=== PATIENT | female | born 1955 | race Caucasian/White ===

== ENCOUNTER 2023-12-27 12:56 | Outpatient (OUT) | payer MEDICARE, OTHER, SELFPAY ==
--- NOTE | 2023-12-27 13:04 | VEIN_ITS ---
Patient Name: JOSIAH ALONZO MR#: [id number] : 1955 Exam Date: 12/27/2023 Ordering Doctor: DR DIAZ NORRIS M.D. RADIOLOGY REPORT PROCEDURE: VC EXT VENOUS REFLUX VANDANA LMTD COMPARISON: None. INDICATIONS: Pain due to varicose veins of bilateral legs I83.813 TECHNIQUE: Duplex imaging of the lower extremity to assess the deep and superficial venous system for the presence of deep or superficial venous incompetence and to document the location and severity of disease. The study includes evaluation of the great saphenous vein (GSV), anterior accessory saphenous vein (AASV) and small saphenous vein (SSV). Patient scanned in reverse Trendelenburg and standing. FINDINGS: RIGHT LOWER EXTREMITY: Saphenofemoral Junction Reflux: Yes 8.5mm 2.6 sec GSV: Diam (mm) Reflux/ Time (sec) Proximal Thigh 8.4 Yes 3.7 Mid Thigh 6.0 Yes 3.9 Distal Thigh 8.1 Yes 3.7 Prox Calf 8.4 Ye s2.4 Mid Calf 4.4 Yes 1.8 Saphenopopliteal Junction Reflux: 6.6mm Yes 1.2 SSV: Proximal Calf 5.5 Yes 1.6 Mid Calf 5.6 Yes 4.8 AASV: Proximal Thigh 8.1 Yes 1.6 Mid Thigh 5.9 Yes 1.5 Distal Thigh Thrombi: No acute or chronic thrombus. Compressibility: Normal. Flow: Severe deep venous reflux in popliteal vein. Preforator:Prox posterior calf 6.8 mm with 2.2s reflux. Tech Note: PTVs not well visualized. Hypoechoic mass noted in proximal/medial right calf measures 2.8 x 2.3 x 2.2 cm. Incompetent varicose vein proximal medial lower leg measures 6.9 mm with 2.8s reflux. Varicose vein distal medial thigh measures 5.6 mm with 1.0s reflux. Varicose vein mid posterior calf off SSV measures 4.8 mm with 3.9s reflux. Varicose vein distal posterior calf measures 5.3 mm with 4.1s reflux. LEFT LOWER EXTREMITY: Saphenofemoral Junction Reflux: Yes 8.9 mm 3.7 sec GSV: Diam (mm) Reflux/Time (sec) Proximal Thigh 7.8 Yes 2.2 Mid Thigh 5.2 Yes 4.0 Distal Thigh 5.9 Yes 3.0 Prox Calf 5.0 Yes 4.8 Mid Calf 7.6 Yes 2.9 Saphenopopliteal Junction Relux: 3.6 mm No SSV: Proximal Calf 2.9 Yes 0.7 Mid Calf 2.9 Yes 0.3 AASV: Proximal Thigh 4.6 Yes 0.9 Mid Thigh 3.1 Yes 0.4 Distal Thigh Thrombi: No acute or chronic thrombus. Compressibility: Normal. Flow: Mild deep venous reflux. [employer]: Distal medial lower leg measures 5.0 mm with 4.7s reflux. Prox posterior/medial calf measures 3.0mm with 1.6s reflux. Tech Note: PTVs not well visualized. Incompetent varicose vein measures 4.7 mm with 1.1s reflux. Varicose vein medial knee measures 4.9 mm with 3.3s reflux. Varicose vein mid posterior calf off of SSV measures 4.0 mm with 1.1s reflux. CONCLUSION: 1. Abnormally dilated and incompetent right great saphenous, right small saphenous, and anterior accessory saphenous veins with numerous dilated and incompetent branch saphenous varicosities. 2. Abnormally dilated incompetent left great saphenous vein with multiple dilated and incompetent branch saphenous varicosities. 3. Nonspecific hypoechoic mass within proximal medial right calf 2.8 x 2.2 x 2.3 cm of uncertain etiology. No appreciable internal blood flow on color Doppler. MRI of the calf is recommended for further evaluation. Dictated by: Kwasi Ruiz M.D. on 12/27/2023 at 14:18 Approved by: Kwasi Ruiz M.D. on 12/27/2023 at 14:54
--- NOTE | 2023-12-27 13:04 | VEIN_ITS ---
Patient Name: JOSIAH ALONZO MR#: [id number] : 1955 Exam Date: 12/27/2023 Ordering Doctor: DR DIAZ NORRIS M.D. RADIOLOGY REPORT PROCEDURE: [facility] - OFFICE VISIT INITIAL COMPARISON: None. PROGRESS NOTES: [age] year old female who presents with a 20 year history of dilated bulging veins, discolored veins, leg pain, swelling, muscle cramping. The patient's right leg symptoms are worse than the left. There has been a progression of symptoms over time. This increases with prolonged leg dependency. The patient describes an improvement with rest, elevation, exercise, support stockings, and medication. The patient denies any signs and symptoms to suggest arterial ischemia. The patient describes a family history of varicose veins on maternal side. The patient has drinking and smoking history of occasional alcohol consumption; no tobacco use. Patient has a past medical history significant for obesity. The patient denies a history of deep venous thrombus or pulmonary embolus. See separate history and physical for medication list. No prior treatment for varicose or spider veins. Current use of compression stockings. After review of nurse notes, history and physical exam I discussed at length the pathophysiology of venous hypertension and possible treatments, therapies and strategies available. We discussed at length the importance of elevating the lower extremities above the level of the heart, increased physical activity and compression stocking use. Ultrasound venous reflux study performed today was discussed at length with the patient. The report demonstrates abnormally dilated and markedly incompetent right great saphenous vein, right small saphenous vein, right anterior accessory saphenous vein, left great saphenous vein. Numerous dilated incompetent branch saphenous varicosities.. PHYSICAL EXAM: The right leg demonstrates scattered superficial varicosities, scattered reticular and spider veins, no ulceration, mild-moderate edema, no skin discoloration. The left leg demonstrates scattered superficial varicosities, scattered reticular and spider veins, no ulceration, mild-moderate edema, no skin discoloration. Both thighs, legs and feet were symmetrically warm to the touch. Good posterior tibial and dorsalis pedis pulses were present bilaterally. VEIN/ Facility [facility] Comprehensive IMPRESSION: 1. Bilateral lower extremity venous insufficiency 2. Bilateral lower extremity varicose veins 3. Mild-moderate bilateral lower extremity subcutaneous edema 4. No flow significant arterial disease 5. CEAP: C3, EC, , [place] PLAN: 1. Continued use of compression stockings 2. Elevated legs and increased physical activity symptomatic relief 3. Endovenous laser ablation of right great saphenous, left great saphenous, right small saphenous, right anterior accessory saphenous veins. 4. Microfoam chemical ablation of numerous bilateral incompetent branch saphenous varicosities. 5. Sclerotherapy for reticular and spider veins. 6. MRI of right calf for evaluation of nonspecific 2.8 cm mass versus complex cyst versus old hematoma. Nurse notes, history and physical were reviewed and confirmed, see attached forms. The nurse was present throughout the physical exam and consultation Dictated by: Kwasi Ruiz M.D. on 12/27/2023 at 14:54 Approved by: Kwasi Ruiz M.D. on 12/27/2023 at 14:59
== END 2023-12-27 12:57 | disposition home or self-care (01) ==
LOC: VC 12:58
PROVIDERS: PCP Podiatrist Foot & Ankle Surgery; Visit Provider Radiology Diagnostic Radiology
DX: I83.813 Varicose veins of bilateral lower extremities with pain (principal); I87.2 Venous insufficiency (chronic) (peripheral)
CPT/HCPCS: 93970; G0463

== ENCOUNTER 2024-01-05 06:34 | Outpatient (OUT) | payer MEDICARE, OTHER, SELFPAY ==
--- NOTE | 2024-01-05 06:38 | MR_ITS ---
The [address] [address] Patient Name: JOSIAH ALONZO MRN: [id number] date: 1955 Sex: F Assigned Patient Location: MRI Current Patient Location: Accession/Order Number: [id number] Exam Date: 01/05/2024 06:45 Report Date: 01/08/2024 11:21 At the request of: ABBY RODRIGUEZ Procedure: MR lower leg RT wo con EXAM: MR lower leg RT wo con HISTORY: right lower leg mass COMPARISON: None. TECHNIQUE: MRI images obtained with multiple sequences. MRI of the right lower extremity without contrast. Sequences obtained by standard department protocol. FINDINGS: There is a mass of the lower extremity associated with the neurovascular bundle anterior to the soleus muscle belly, the mass measures approximately 2.2 x 2.2 x 2.6 cm. The mass is in the region of the tibial, Most consistent with nerve sheath tumor. There is a fusiform appearance of the mass inferiorly. There is a split fast line. Metallic susceptibility artifact about the knee joint. No acute edema of the musculature of the right lower extremity. No significant subcutaneous soft tissue edema. No acute bone marrow edema. No acute fracture. MR/MR lower leg RT wo con IMPRESSION: 1. Soft tissue mass in the region of the tibial nerve of the lower extremity measuring 2.2 x 2.2 x 2.6 cm with a fusiform appearance of the inferior aspect of the mass. 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 Electronically authenticated by: BIANCA RODRIGUEZ Date: 01/08/2024 11:21
--- OUTSIDE RECORDS SUMMARY | 2024-01-05 06:38 | XMS_ITS | CCD ---
Author Organization [facility] Care Team Providers Care Heel Lift Gouger Name Role Phone Esperanza Chaney Primary Care Provider RAMIRO OLSEN Attending Unavailab le BROWN, ESPERANZA Carmichael Primary Care Unavailable Esperanza CHANEY Primary Care Physician [phone] Kaitlin Andrea Unavailable Unavailable Ritu HALL, Esperanaz Carmichael Primary Care Provider JOAN WARNER Referring Unavailab le BROWN, ESPERANZA Carmichael Primary Care Unavailable JOAN WARNER Referring Unavailab le BROWN, ESPERANZA Carmichael Primary Care Unavailable WARNERJOAN Referring Unavailab le BROWN, ESPERANZA Carmichael Primary Care Unavailable WARNERJOAN Referring Unavailab le BROWN, ESPERANZA Carmichael Primary Care Unavailable WARNERJOAN Referring Unavailab le BROWN, ESPERANZA Carmichael Primary Care Unavailable WARNERJOAN Referring Unavailab le BROWN, ESPERANZA Carmichael Primary Care Unavailable WARNERJOAN Referring Unavailab le BROWN, ESPERANZA Carmichael Primary Care Unavailable WARNER, JOAN BAILEY Referring Unavailab le BROWN, ESPERANZA Carmichael Primary Care Unavailable WARNERJOAN Referring Unavailab le BROWN, ESPERANZA Carmichael Primary Care Unavailable WARNERJOAN Referring Unavailab le BROWN, ESPERANZA Carmichael Primary Care Unavailable WARNERJOAN Referring Unavailab le BROWN, ESPERANZA Carmichael Primary Care Unavailable WARNERJOAN Referring Unavailab le BROWN, ESPERANZA Carmichael Primary Care Unavailable WARNERJOAN Referring Unavailab le BROWN, ESPERANZA Carmichael Primary Care Unavailable JOAN WARNER Referring Unavailab le BROWN, ESPERANZA Carmichael Primary Care Unavailable WARNERJOAN Referring Unavailab le BROWN, ESPERANZA Carmichael Primary Care Unavailable Guerita Knapp Primary Care Physician Esperanza Chaney MD Primary Care Provider [phone] Guerita Knapp Primary Care Physician BRADY COLINDRES Attending Unavailable DOLCE, BRADY Sales Attending Unavailable DOLCE, BRADY Sales Attending Unavailable HILLS, REGGIE Sales Referring Unavailable HILLS, REGGIE Sales Attending Unavailable DOLCE, BRADY Sales Attending Unavailable DOLCE, BRADY Sales Referring Unavailable DOLCE, BRADY Sales Attending Unavailable DOLCE, BRADY Sales Attending Unavailable DOLCE, BRADY D Referring Unavailable DOLCE, BRADY D Attending Unavailable DOLCE, BRADY D Referring Unavailable DOLCE, BRADY D Attending Unavailable DOLCE, BRADY Sales Attending Unavailable DOLCE, BRADY D Attending Unavailable DOLCE, BRADY Sales Attending Unavailable DOLCE, BRADY Sales Attending Unavailable DOLCE, BRADY Sales Attending Unavailable DOLCE, BRADY D Referring Unavailable KnappGuerita lepe Attending Unavailable Dolce, Brady Sales Attending Unavailable Dolce, Brady Sales Referring Unavailable Dolce, Brady Sales Admitting Unavailable BROWNEsperanza Attending Unavailable KnappGuerita Attending Unavailable BROWNEsperanza Attending Unavailable KnappGuerita Attending Unavailable KnappGuerita Attending Unavailable KnappGuerita Attending Unavailable KnappGuerita Attending Unavailable KnappGuerita Attending Unavailable KnappGuerita Attending Unavailable BROWNEsperanza Attending Unavailable KnappGuerita Attending Unavailable KnappGuerita Attending Unavailable KnappGuerita Attending Unavailable KnappGuerita Attending Unavailable KnappGuerita Attending Unavailable KnappGuerita Attending Unavailable KnappGuerita Attending Unavailable BROWNVikram Attending Unavailable REFERRAL, SELF Referring Unavailable REFERRAL, SELF Attending Unavailable REFERRAL, SELF Admitting Unavailable BROWN, Christopher Consulting Unavailable MD RITU Christopher Consulting UnavailAngela Badillo Consulting Unavailable BROWN, Christopher Consulting Unavailable BROWN, Christopher Consulting Unavailable BROWN, Christopher Consulting Unavailable BROWN, Christopher Consulting Unavailable BROWN, Christopher Consulting Unavailable BROWN, Christopher Consulting Unavailable BROWN, Christopher Consulting Unavailable BROWN, Christopher Consulting Unavailable BROWN, Christopher Consulting Unavailable BROWN, Christopher Consulting Unavailable BROWN, Christopher Consulting Unavailable BROWN, Christopher Consulting Unavailable BROWN, Christopher Consulting Unavailable BROWN, Christopher Consulting Unavailable BROWN, Christopher Consulting Unavailable BROWN, Christopher Consulting Unavailable Guerita Knapp Attending Unavailable BROWNEsperanza Attending Unavailable BROWNEsperanza Attending Unavailable BROWN, Esperanza Carmichael Attending Unavailable Vikram CHANEY Attending Unavailable RITU, Esperanza Carmichael Attending Unavailable RITU, Esperanza Carmichael Attending Unavailable BROWN, Esperanza Carmichael Attending Unavailable BROWN, Esperanza Carmichael Attending Unavailable BROWN, Esperanza Carmichael Attending Unavailable Guerita Knapp Attending Unavailable RITU, Esperanza Carmichael Attending Unavailable Guerita Knapp Attending Unavailable RITU, Esperanza Carmichael Attending Unavailable RITU, Esperanza Carmichael Attending Unavailable RITU, Esperanza Carmichael Attending Unavailable BROWN, Esperanza Carmichael Attending Unavailable BROWN, Esperanza Carmichael Attending Unavailable BROWN, Esperanza Carmichael Attending Unavailable BROWN, Vikram Attending Unavailable Dolce, Brady D Admitting Unavailable Dolce, Brady D Attending Unavailable Dolce, Brady D Admitting Unavailable Dolce, Brady D Attending Unavailable RITU, Esperanza Carmichael Admitting Unavailable BROWN, Esperanza Carmichael Attending Unavailable Dolce, Brady D Attending Unavailable Dolce, Brady D Admitting Unavailable Dolce, Brady D Attending Unavailable Dolce, Brady D Admitting Unavailable Allergies Allergy Classification Reported Allergen(s) Allergy Type Date of Onset Reaction(s) Facility NSAIDs (2 sources) Naproxen; Translations: [naproxen] Drug Allergy Nausea (finding) [facility] Opioid Agonists (2 sources) Codeine; Translations: [codeine] Drug Allergy Lightheadedness (finding), Nausea and vomiting (disorder) [facility] Penicillins (antibiotic) (2 sources) Amoxicillin; Translations: [amoxicillin] Drug Allergy Cutaneous eruption (morphologic abnormality) [facility] (20 sources) Codeine; Translations: [Unknown] Drug Allergy 0 GI Intolerance, Lightheadedness (finding), Nausea and vomiting (disorder), Dizziness, Nausea And Vomiting, Unknown [facility] (20 sources) Amoxicillin; Translations: [amoxicillin] Drug Allergy 3 Cutaneous eruption (morphologic abnormality), Rash [facility] (20 sources) Naproxen; Translations: [naproxen] Drug Allergy 3 Nausea (finding), Nausea Only [facility] Medications Current Medications Medication Drug Class(es) Dates Sig (Normalized) Sig (Original) acetaminophen 325 mg / oxyCODONE hydrochloride 5 mg oral tablet (20 sources) Opioid Agonist Start: 08-23-2023 End: 08-28-2023 oxyCODONE-acetamin ophen (Percocet) 5-325 MG tablet Indications: Pain Take 1 tablet by mouth 4 (four) times a day as needed for severe pain for up to 5 days TAKE 1 PILL P.O. Q.4H P.R.N. PAIN 20 tablet 0 08/23/2023 08/28/2023 Active Start: 12-31-2021 Percocet 325 m g-5 mg Tab 1 tab(s), Oral, q4hr Pain 4-7, Refill(s) 0 Start Date: 12/31/21 Status: Ordered Start: 12-31-2021 Percocet 325 m g-5 mg Tab 2 tab(s), Oral, q4hr Pain 4-7, Refill(s) 0 Start Date: 12/31/21 Status: Ordered Start: 12-31-2021 Percocet 325 m g-5 mg Tab 1 tab(s), Oral, q4hr Pain 4-7, Refill(s) 0 Start Date: 12/31/21 Status: Ordered albuterol 0.83 mg/ml inhalation solution (20 sources) beta2-Adrenergic Agonist Start: 08-31-2022 albut mike (2.5 MG/3ML) 0.083% nebulizer solution 0.083% - 3mL dosing units, Inhalation, q6hr Wheezing, 100 EA, Refill(s) 2, [facility] [id number], 165, cm, 07/07/22 9:42:00 EST, Height/Length Dosing, 98, kg, 07/07/22 9:42:00 EST, Weight Dosing 0 08/31/2022 Active Start: 08-31-2022 albuterol 0.08 3% Inh Robyn 3 mL 0.083% - 3mL dosing units, Inhalation, q6hr Wheezing, 100 EA, Refill(s) 2, [facility] [id number], 165, cm, 07/07/22 9:42:00 EST, Height/Length Dosing, 98, kg, 07/07/22 9:42:00 EST, Weight Dosing Start Date: 08/31/22 Status: Ordered Start: 03-10-2021 take 2.5 mg by inhal ation every six hours as needed for wheezing albuterol 0.083% Inh Robyn 3 mL UD 2.5 mg = 3 mL, Inhalation, q6hr, PRN for wheezing, # 100 EA, Refills(s) 2, [facility], 154.1, cm, 05/08/20 8:25:00 EDT, Height/Length Dosing Start Date: 03/10/21 Status: Ordered Start: 03-10-2021 take 2 puff(s) by in halation four times daily for wheezing ProAir HFA 90 mcg/inh inhalation aerosol 2 puff(s), Inhalation, QID for wheezing, 1 EA, Refill(s) 2, [facility], 154.1, cm, 05/08/20 8:25:00 EDT, Height/Length Dosing Start Date: 03/10/21 Status: Ordered Start: 03-10-2021 take 2.5 mg by inhal ation every six hours as needed for wheezing albuterol 0.083% Inh Robyn 3 mL UD 2.5 mg = 3 mL, Inhalation, q6hr, PRN for wheezing, # 100 EA, Refills(s) 2, [facility], 154.1, cm, 05/08/20 8:25:00 EDT, Height/Length Dosing Start Date: 03/10/21 Status: Ordered Albuterol (Eqv-ProAir HFA) 90 mcg/inh inhalation aerosol (20 sources) Start: 07-05-2023 End: 06-29-2024 take 2 puff(s) by inhalation four times daily Albuterol (Eqv-ProAir HFA) 90 mcg/inh inhalation aerosol 2 puff(s), Inhalation, QID Wheezing for 90 day(s), 18 gm, Refill(s) 3, [facility] [id number], 170, cm, 07/05/23 12:11:00 EST, Height/Length Dosing, 98.6, kg, 07/05/23 12:11:00 EST, Weight Dosing Start Date: 07/05/23 Stop Date: 06/29/24 Status: Ordered Start: 09-20-2022 take 2 puff(s) by in halation four times daily Albuterol (Eqv-ProAir HFA) 90 mcg/inh inhalation aerosol 2 puff(s), Inhalation, QID Wheezing, 1 EA, Refill(s) 2, [facility] [id number], 165, cm, 09/20/22 10:56:00 EDT, Height/Length Dosing, 98, kg, 07/07/22 9:42:00 EST, Weight Dosing Start Date: 09/20/22 Status: Ordered ascorbic acid 500 mg chewable tablet (9 sources) Vitamin C Start: 11-12-2021 take 1 tablet by mouth once daily Vitamin C 500 mg oral tablet, chewable 500 mg = 1 tab(s), Chewed, Daily, Refills(s) 0, Prophylaxis Start Date: 11/12/21 Status: Ordered aspirin 325 mg oral tablet (20 sources) Platelet Aggregation Inhibitor, Nonsteroidal Anti-inflammatory Drug Start: 12-31-2021 End: 01-30-2022 take 1 tablet by mouth once daily aspirin 325 mg Tab 325 mg = 1 tab(s), Oral, Daily, X 30 day(s), # 30 tab(s), Refills(s) 0 Start Date: 12/31/21 Stop Date: 01/30/22 Status: Ordered Start: 12-17-2021 take 1 tablet by chacha th once daily aspirin 81 mg Chew Tab 81 mg = 1 tab(s), Oral, Daily, # 30 tab(s), Refills(s) 0, Prophylaxis Start Date: 12/17/21 Status: Ordered azithromycin 250 mg oral tablet (2 sources) Macrolide Antimicrobial Start: 07-05-2023 End: 07-10-2023 azithromycin 250 mg Tab = 1 packet(s), Oral, As Directed, as directed on package labeling, X 5 day(s), # 6 tab(s), Refills(s) 0, Pharmacy: [facility] [id number], 170, cm, 07/05/23 12:11:00 EST, Height/Length Dosing, 98.6, kg, 07/05/23 12:11:00 EST, Weight Dosing Start Date: 07/05/23 Stop Date: 07/10/23 Status: Ordered Start: 09-20-2022 End: 09-25-2022 azithromycin 250 mg Tab = 1 packet(s), Oral, As Directed, as directed on package labeling, X 5 day(s), # 6 tab(s), Refills(s) 0, Pharmacy: [facility] [id number], 165, cm, 09/20/22 10:56:00 EDT, Height/Length Dosing, 98, kg, 07/07/22 9:42:00 EST, Weight Dosing Start Date: 09/20/22 Stop Date: 09/25/22 Status: Ordered budesonide 0.25 mg/ml inhalation suspension (20 sources) Corticosteroid Start: 09-20-2022 take 0.5 mg by inhalation twice daily budesonide 0.5 mg/2 mL Inh Susp 0.5 mg = 2 mL, NEB, BID, # 90 EA, Refills(s) 1, Pharmacy: [facility] [id number], 165, cm, 09/20/22 10:56:00 EDT, Height/Length Dosing, 98, kg, 07/07/22 9:42:00 EST, Weight Dosing Start Date: 09/20/22 Status: Ordered Start: 03-10-2021 take 0.5 mg by inhal ation once daily budesonide 0.5 mg/2 mL Inh Susp 0.5 mg = 2 mL, NEB, Daily, # 90 EA, Refills(s) 1, Pharmacy: [facility] 518, 154.1, cm, 05/08/20 8:25:00 EDT, Height/Length Dosing Start Date: 03/10/21 Status: Ordered Start: 03-10-2021 take 0.5 mg by inhal ation once daily budesonide 0.5 mg/2 mL Inh Susp 0.5 mg = 2 mL, NEB, Daily, # 90 EA, Refills(s) 1, Pharmacy: [facility] 518, 154.1, cm, 05/08/20 8:25:00 EDT, Height/Length Dosing Start Date: 03/10/21 Status: Ordered calcium citrate 950 mg / cholecalciferol 250 unt oral tablet (20 sources) Vitamin D Start: 11-12-2021 take 1 tablet by mouth twice daily calcium-vitamin D 200 mg-250 intl units oral tablet 1 tab(s), Oral, BID, Prophylaxis Start Date: 11/12/21 Status: Ordered cephalexin 500 mg oral capsule (1 source) Cephalosporin Antibacterial Start: 12-31-2021 End: 01-05-2022 take 1 capsule by mouth four times daily Keflex 500 mg Cap 500 mg = 1 cap(s), Oral, QID, X 5 day(s), # 20 cap(s), Refills(s) 0 Start Date: 12/31/21 Stop Date: 01/05/22 Status: Ordered cetirizine hydrochloride 10 mg oral tablet (20 sources) Histamine-1 Receptor Antagonist Start: 04-13-2020 take 1 tablet by mouth once daily cetirizine 10 mg Tab 10 mg = 1 tab(s), Oral, Daily, # 90 tab(s), Refills(s) 3, Pharmacy: [facility] [id number], 170, cm, 01/02/24 10:45:00 EDT, Height/Length Dosing, 106, kg, 01/02/24 10:45:00 EDT, Weight Dosing Start Date: 01/02/24 Status: Ordered clindamycin 300 mg oral capsule (20 sources) Lincosamide Antibacterial Start: 07-14-2022 clindamycin 300 mg oral cap 2 cap, Oral, Once, take 1 hr prior to procedure, # 2 cap(s), Refills(s) 1, Pharmacy: [facility] [id number], 165, cm, 07/07/22 9:42:00 EST, Height/Length Dosing, 98, kg, 07/07/22 9:42:00 EST, Weight Dosing Start Date: 07/14/22 Status: Ordered Start: 07-14-2022 take [address] [facility] every six hours clindamycin 300 mg oral cap 300 mg = 1 cap(s), Oral, q6hr, 1 hour before procedure, # 2 cap(s), Refills(s) 1, Pharmacy: [facility] [id number], 170, cm, 07/05/23 12:11:00 EST, Height/Length Dosing, 98.6, kg, 07/05/23 12:11:00 EST, Weight Dosing Start Date: 08/09/23 Status: Ordered cyclobenzaprine hydrochloride 10 mg oral tablet (1 source) Muscle Relaxant Start: 12-28-2019 take 1 tablet by mouth twice daily as needed for pain cyclobenzaprine (FLEXERIL) 10 MG tablet Take 1 tablet p.o. twice daily as needed muscle spasm or pain. . 10 tablet 0 12/28/2019 Active docusate sodium 100 mg oral capsule (14 sources) Start: 12-31-2021 take 1 capsule by mouth twice daily Colace 100 mg Cap 100 mg = 1 cap(s), Oral, BID, Refills(s) 0, Constipation Start Date: 12/31/21 Status: Ordered escitalopram 20 mg oral tablet (20 sources) Serotonin Reuptake Inhibitor Start: 08-15-2022 take 1 tablet by mouth once daily escitalopram 20 mg Tab 20 mg = 1 tab(s), Oral, Daily, # 90 tab(s), Refills(s) 3, Pharmacy: [facility] [id number], 170, cm, 08/14/23 10:53:00 EST, Height/Length Dosing, 101.7, kg, 08/14/23 10:53:00 EST, Weight Dosing Start Date: 10/03/23 Status: Ordered Start: 03-28-2022 take 1 tablet by chacha once daily escitalopram 20 mg Tab 20 mg = 1 tab(s), Oral, Daily, # 90 tab(s), Refills(s) 1, Pharmacy: [facility] [id number], 162, cm, 01/18/22 11:03:00 EDT, Height/Length Dosing, 97, kg, 01/18/22 11:03:00 EDT, Weight Dosing Start Date: 03/28/22 Status: Ordered Start: 12-31-2021 take 1 tablet by chacha once daily escitalopram 20 mg Tab 20 mg = 1 tab(s), Oral, Daily, # 90 tab(s), Refills(s) 1, Pharmacy: [facility] 320, 162, cm, 12/17/21 9:05:00 EDT, Height/Length Dosing, 96, kg, 12/17/21 9:05:00 EDT, Weight Dosing Start Date: 12/31/21 Status: Ordered Start: 09-27-2021 take 1 tablet by chacha once daily escitalopram 20 mg Tab 20 mg = 1 tab(s), Oral, Daily, # 90 tab(s), Refills(s) 1, Pharmacy: [facility] 518, 154.1, cm, 07/30/21 14:24:00 EST, Height/Length Dosing, 90.5, kg, 07/30/21 14:24:00 EST, Weight Dosing Start Date: 09/27/21 Status: Ordered famotidine 40 mg oral tablet (2 sources) Histamine-2 Receptor Antagonist Start: 04-13-2020 take 1 tablet by mouth once daily at bedtime famotidine 40 mg Tab 40 mg = 1 tab(s), Oral, Once a day (at bedtime), # 30 tab(s), Refills(s) 0, Pharmacy: [facility] 320, 154.1, cm, 04/13/20 12:32:00 EDT, Height/Length Dosing Start Date: 04/13/20 Status: Ordered Fish Oils (20 sources) Start: 11-14-2018 take 2 capsules by mouth twice daily Fish Oil 500 mg oral capsule 1,000 mg = 2 cap(s), Oral, BID, Refills(s) 0, Prophylaxis Start Date: 11/14/18 Status: Ordered Start: 11-14-2018 take 2 capsules by m outh twice daily Fish Oil 500 mg oral capsule 1,000 mg = 2 cap(s), Oral, BID, # 130 cap(s), Refills(s) 0 Start Date: 11/14/18 Status: Ordered Flonase 0.05 mg/inh [place] (13 sources) Start: 11-21-2018 take 2 spray(s) nasal route once daily Flonase 0.05 mg/inh [place] 2 spray(s), Nasal, Daily, 16 gram, Refill(s) 0, each nostril, [facility] 320 Start Date: 11/21/18 Status: Ordered fluticasone propionate 0.05 mg/actuat metered dose nasal spray (20 sources) Corticosteroid Start: 11-21-2018 take 2 spray(s) nasal route once daily Flonase 0.05 mg/inh [place] 2 spray(s), Nasal, Daily, 16 gram, Refill(s) 0, each nostril, [facility] 320 Start Date: 11/21/18 Status: Ordered gabapentin 300 mg oral capsule (20 sources) Anti-epileptic Agent Start: 03-14-2023 take 1 capsule by mouth three times daily gabapentin 300 mg Cap 300 mg = 1 cap(s), Oral, TID, # 90 cap(s), Refills(s) 3, Pharmacy: [facility] [id number], 165, cm, 11/24/22 13:54:00 EDT, Height/Length Dosing, 97, kg, 11/24/22 13:54:00 EDT, Weight Dosing Start Date: 03/14/23 Status: Ordered Start: 02-10-2023 take [address] [facility] three times daily gabapentin 300 mg Cap 300 mg = 1 cap(s), Oral, TID, # 90 cap(s), Refills(s) 0, Pharmacy: [facility] [id number], 165, cm, 11/24/22 13:54:00 EDT, Height/Length Dosing, 97, kg, 11/24/22 13:54:00 EDT, Weight Dosing Start Date: 02/10/23 Status: Ordered Start: 01-11-2023 take [address] [facility] three times daily gabapentin 100 mg Cap 100 mg = 1 cap(s), Oral, TID, # 90 cap(s), Refills(s) 0, Pharmacy: [facility] [id number], 165, cm, 11/24/22 13:54:00 EDT, Height/Length Dosing, 97, kg, 11/24/22 13:54:00 EDT, Weight Dosing Start Date: 01/11/23 Status: Ordered Handicapped Parking Placard (20 sources) Start: 03-09-2020 Handicapped Pa rking Placard Handicapped Parking Placard, 5 year duration, Print Requisition, Supply Start Date: 03/09/20 Status: Ordered hydrOXYzine hydrochloride 25 mg oral tablet (20 sources) Antihistamine Start: 09-28-2022 take 1 tablet by mouth four times daily as needed hydrOXYzine hydrochloride 25 mg Tab 25 mg = 1 tab(s), Oral, QID, PRN as needed for itching, # 360 tab(s), Refills(s) 3, Pharmacy: [facility] [id number], 170, cm, 01/02/24 10:45:00 EDT, Height/Length Dosing, 106, kg, 01/02/24 10:45:00 EDT, Weight Dosing Start Date: 01/02/24 Status: Ordered Start: 03-28-2022 take 1 tablet by chacha th four times daily as needed hydrOXYzine hydrochloride 25 mg Tab 25 mg = 1 tab(s), Oral, QID, PRN as needed for itching, # 360 tab(s), Refills(s) 1, [facility] [id number], 162, cm, 01/18/22 11:03:00 EDT, Height/Length Dosing, 97, kg, 01/18/22 11:03:00 EDT, Weight Dosing Start Date: 03/28/22 Status: Ordered Start: 09-27-2021 take 1 tablet by chacha th four times daily as needed hydrOXYzine hydrochloride 25 mg Tab 25 mg = 1 tab(s), Oral, QID, PRN as needed for itching, # 360 tab(s), Refills(s) 0, Pharmacy: [facility], 154.1, cm, 07/30/21 14:24:00 EST, Height/Length Dosing, 90.5, kg, 07/30/21 14:24:00 EST, Weight Dosing Start Date: 09/27/21 Status: Ordered Joint advantage gold (4 sources) Start: 02-12-2019 Joint advantag e gold Joint advantage gold Start Date: 02/12/19 Status: Ordered montelukast 10 mg oral tablet (20 sources) Leukotriene Receptor Antagonist Start: 03-28-2022 take 1 tablet by mouth once daily in the evening Singulair 10 mg Tab 10 mg = 1 tab(s), Oral, qPM, # 90 tab(s), Refills(s) 3, Pharmacy: [facility] [id number], 170, cm, 01/02/24 10:45:00 EDT, Height/Length Dosing, 106, kg, 01/02/24 10:45:00 EDT, Weight Dosing Start Date: 01/02/24 Status: Ordered Start: 09-27-2021 take 1 tablet by chacha once daily in the evening Singulair 10 mg Tab 10 mg = 1 tab(s), Oral, qPM, # 90 tab(s), Refills(s) 1, [id number], 154.1, cm, 07/30/21 14:24:00 EST, Height/Length Dosing, 90.5, kg, 07/30/21 14:24:00 EST, Weight Dosing Start Date: 09/27/21 Status: Ordered naproxen sodium 550 mg oral tablet (3 sources) Nonsteroidal Anti-inflammatory Drug Start: 12-28-2019 take 1 tablet by mouth twice daily as needed for pain naproxen sodium (ANAPROX) 550 MG tablet Take 1 (one) tablet (550 mg total) by mouth 2 (two) times a day as needed (pain) . 14 tablet 0 12/28/2019 Active Start: 11-14-2018 take 1 tablet by chacha th twice daily naproxen 500 mg Tab 500 mg = 1 tab(s), Oral, BID, # 180 tab(s), Refills(s) 0 Start Date: 11/14/18 Status: Ordered nebulizer (4 sources) Start: 03-22-2021 nebulizer mehrdadu phyllis, See Instructions, 1 EA, 0, use as directed with inhaled medication as prescribed, Supply Start Date: 03/22/21 Status: Ordered nebulizer tubing and supplies (4 sources) Start: 03-22-2021 nebulizer tubi ng and supplies nebulizer tubing and supplies, See Instructions, 1 EA, 0, use as directed with inhaled med as prescribed, Supply Start Date: 03/22/21 Status: Ordered polyethylene glycol 3350 [id number] mg / potassium chloride 1480 mg / sodium bicarbonate 5720 mg / sodium chloride 80989 mg powder for oral solution (1 source) Osmotic Laxative Start: 06-27-2022 take 1 dose by mouth once NuLYTELY Grainger oral powder for reconstitution See Instructions, 1 EA, Refill(s) 0, Per physcisians instructions prior to colonoscopy, [facility] [id number], 165, cm, 06/27/22 14:23:00 EST, Height/Length Dosing, 98, kg, 06/27/22 14:23:00 EST, Weight Dosing Start Date: 06/27/22 Status: Ordered predniSONE 10 mg oral tablet (20 sources) Start: 07-05-2023 predniSONE 10 mg Tab = 1 -, Oral, As Directed, Take 3 tabs by mouth daily x3 days, then 2 tabs daily x3 days, then 1 tab daily x3 days., # 18 tab(s), Refills(s) 0, Pharmacy: [facility] [id number], 170, cm, 07/05/23 12:11:00 EST, Height/Length Dosing, 98.6, kg, 07/05/23 12:11:00 EST, Weight Dosing Start Date: 07/05/23 Status: Ordered Start: 08-18-2022 predniSONE 20 mg Tab See Instructions, 3 po daily x 2 days then 2 po daily x 2 days then 1po daily x 2 days, # 18 tab(s), Refills(s) 0, Pharmacy: [facility] 320, 165, cm, 07/07/22 9:42:00 EST, Height/Length Dosing, 98, kg, 07/07/22 9:42:00 EST, Weight Dosing Start Date: 08/18/22 Status: Ordered Start: 03-28-2022 End: 04-02-2022 take 2 tablets by mouth once daily predniSONE 20 mg Tab 40 mg = 2 tab(s), Oral, Daily, X 5 day(s), # 10 tab(s), Refills(s) 0, Pharmacy: [facility] 320, 162, cm, 01/18/22 11:03:00 EDT, Height/Length Dosing, 97, kg, 01/18/22 11:03:00 EDT, Weight Dosing Start Date: 03/28/22 Stop Date: 04/02/22 Status: Ordered Start: 12-09-2021 predniSONE 20 mg Tab See Instructions, 3 po daily x 2 days then 2 po daily x 2 days then 1po daily x 2 days, # 18 tab(s), Refills(s) 0, Pharmacy: [facility] 320, 163, cm, 12/09/21 14:21:00 EDT, Height/Length Dosing, 95, kg, 11/19/21 15:23:00 EDT, Weight Dosing Start Date: 12/09/21 Status: Ordered Start: 07-12-2021 predniSONE 20 mg Tab See Instructions, 3 po daily x 3 days then 2 po daily x 3 days then 1po daily x 3 days, # 18 tab(s), Refills(s) 0, Pharmacy: [facility] 518, 154.1, cm, 05/08/20 8:25:00 EDT, Height/Length Dosing Start Date: 07/12/21 Status: Ordered ProAir HFA 90 mcg/inh inhalation aerosol (20 sources) Start: 03-10-2021 take 2 puff(s) by inhalation four times daily for wheezing ProAir HFA 90 mcg/inh inhalation aerosol 2 puff(s), Inhalation, QID for wheezing, 1 EA, Refill(s) 2, [facility] 518, 154.1, cm, 05/08/20 8:25:00 EDT, Height/Length Dosing Start Date: 03/10/21 Status: Ordered Triamcinolone (4 sources) Corticosteroid Start: 08-31-2020 triamcinolone Top 0.1% Crm 30 gram 1 pete, Topical, BID, 30 gram, Refill(s) 1, [facility] 320, 154.1, cm, 05/08/20 8:25:00 EDT, Height/Length Dosing Start Date: 08/31/20 Status: Ordered vitamin b12 0.1 mg oral tablet (5 sources) Vitamin B12 take 1 tablet by mouth in the morning cyanocobalamin (Vitamin B-12) 100 MCG tablet Take 100 mcg by mouth in the morning. 0 Active Vitamin C 500 mg oral tablet, chewable (20 sources) Start: 11-12-2021 take 1 tablet by mouth once daily Vitamin C 500 mg oral tablet, chewable 500 mg = 1 tab(s), Chewed, Daily, Refills(s) 0, Prophylaxis Start Date: 11/12/21 Status: Ordered Vitamin D 1000 intl units Tab (20 sources) Start: 11-21-2018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 Consider other retailers such as dollar stores, larger wholesale stores, local fruit and vegetable stands, and farmers markets. ? Do not shop when you are hungry. If you shop while hungry, it may be hard to stick to your list and budget. ? Resist impulse buying. Use your grocery list as your official plan for the week. ? Buy a variety of vegetables and fruits by purchasing fresh, frozen, and canned items. ? Look at the top and bottom shelves for deals. Foods at eye level (eye level of an adult or child) are usually more expensive. ? Be efficient with your time when shopping. The more time you spend at the store, the more money you are likely to spend. ? To save money when choosing more expensive foods like meats and dairy: ? Choose cheaper cuts of meat, such as bone-in chicken thighs and drumsticks instead of skinless and boneless chicken. When you are ready to prepare the chicken, you can remove the skin yourself to make it healthier. ? Choose lean meats like chicken or turkey instead of beef. ? Choose canned seafood, such as tuna, salmon, or sardines. ? Buy eggs as a low-cost source of protein. ? Buy dried beans and peas, such as lentils, split peas, or kidney beans instead of meats. Dried beans and peas are a good alternative source of protein. ? Buy the larger tubs of yogurt instead of individual-sized containers. ? Choose water instead of sodas and other sweetened beverages. ? Avoid buying chips, cookies, and other junk food. These items are usually expensive and not healthy. Cooking ? Make extra food and freeze the extras in meal-sized containers or in individual portions for fast meals and snacks. ? Pre-cook on days when you have extra time to prepare meals in advance. You can keep these meals in the fridge or freezer and reheat for a quick meal. ? When you come home from the grocery store, wash, peel, and cut fruits and vegetables so they are ready to use and eat. This will help reduce food waste. Meal planning ? Do not eat out or get fast food. Prepare food at home. ? Make a grocery list and make sure to bring it with you to the store. If you have a smart phone, you could use your phone to create your shopping list. ? Plan meals and snacks according to a grocery list and budget you create. ? Use leftovers in your meal plan for the week. ? Look for recipes where you can cook once and make enough food for two meals. ? Prepare budget-friendly types of meals like stews, casseroles, and stir-wright dishes. ? Try some meatless meals or try no cook meals like salads. ? Make sure that half your plate is filled with fruits or vegetables. Choose from fresh, frozen, or canned fruits and vegetables. If eating canned, remember to rinse them before eating. This will remove any excess salt added for packaging. Summary ? Eating healthy on a budget is possible if you plan your meals according to your budget, purchase according to your budget and grocery list, and prepare food yourself. ? Tips for buyi (more content not included)... Normal [facility] Physician Orderon 01-02-2024 Physician Order [id number] 615#1.00TIFF Normal [facility] eGFRon 01-02-2024 eGFR 94 mL/min/1.73 m2 Normal >=59 [facility] Comment on above: Order Comment: Order added by Discern Expert. Performed By: #### [id number] #### [facility] [address] [place] [address] Nurse Consultation Noteon Nurse Consultation Note Reason for Visit allergy injection Medications Albuterol (Eqv-ProAir HFA) 90 mcg/inh inhalation aerosol, 2 puff(s), Inhalation, QID, PRN, 3 refills albuterol 0.083% Inh Robyn 3 mL, 0.083% - 3mL dosing units, Inhalation, q6hr, PRN, 2 refills budesonide 0.5 mg/2 mL Inh Susp, 0.5 mg= 2 mL, NEB, BID, 1 refills calcium-vitamin D 200 mg-250 intl units oral tablet, 1 tab(s), Oral, BID cetirizine 10 mg Tab, 10 mg= 1 tab(s), Oral, Daily clindamycin 300 mg oral cap, 300 mg= 1 cap(s), Oral, q6hr, 1 refills, Not taking escitalopram 20 mg Tab, 20 mg= 1 tab(s), Oral, Daily, 3 refills Fish Oil 500 mg oral capsule, 1000 mg= 2 cap(s), Oral, BID Flonase 0.05 mg/inh [place], 2 spray(s), Nasal, Daily gabapentin 300 mg Cap, 300 mg= 1 cap(s), Oral, TID, 3 refills Handicapped Parking Placard, 0 hydrOXYzine hydrochloride 25 mg Tab, 25 mg= 1 tab(s), Oral, QID, PRN, 1 refills predniSONE 10 mg Tab, 1 -, Oral, As Directed, Not taking Singulair 10 mg Tab, 10 mg= 1 tab(s), Oral, qPM, 1 refills Vial A, Normal Patient Dose, SubCutaneous, Once Vitamin C 500 mg oral tablet, chewable, 500 mg= 1 tab(s), Chewed, Daily Vitamin D 1000 intl units Tab, 25 mcg= 1 tab(s), Oral, Daily Allergies Anaprox (Nausea) amoxicillin (Rash) codeine (Lightheaded, Nausea with Vomiting) Immunizations Vaccine Date Status Comments pneumococcal 23-valent vaccine - Not Given Postpone due to refusal pneumococcal 13-valent vaccine - Not Given Postpone due to refusal influenza virus vaccine, inactivated - Not Given Postpone due to refusal influenza virus vaccine, inactivated - Not Given Postpone due to refusal influenza virus vaccine, inactivated - Not Given Postpone due to refusal influenza virus vaccine, inactivated - Not Given Postpone due to refusal pneumococcal 23-valent vaccine - Not Given Postpone due to refusal SARS-CoV-2 (COVID-19) mRNA-1273 vaccine 06/15/2021 Recorded SARS-CoV-2 (COVID-19) mRNA-1273 vaccine 10/06/2020 Recorded 2022-11-23: 60 SARS-CoV-2 (COVID-19) mRNA-1273 vaccine 09/26/2020 Recorded SARS-CoV-2 (COVID-19) mRNA-1273 vaccine 09/08/2020 Recorded pneumococcal 23-valent vaccine 04/07/2005 Recorded Normal [facility] Physician Orderon 12-29-2023 Physician Order [id number] 8#1.00TIFF [facility] Formson 12-18-2023 Forms [id number] E6#1.00TIFF [facility] Nurse Consultation Noteon Nurse Consultation Note Reason for Visit allergy injections Medications Albuterol (Eqv-ProAir HFA) 90 mcg/inh inhalation aerosol, 2 puff(s), Inhalation, QID, PRN, 3 refills albuterol 0.083% Inh Robyn 3 mL, 0.083% - 3mL dosing units, Inhalation, q6hr, PRN, 2 refills budesonide 0.5 mg/2 mL Inh Susp, 0.5 mg= 2 mL, NEB, BID, 1 refills calcium-vitamin D 200 mg-250 intl units oral tablet, 1 tab(s), Oral, BID cetirizine 10 mg Tab, 10 mg= 1 tab(s), Oral, Daily clindamycin 300 mg oral cap, 300 mg= 1 cap(s), Oral, q6hr, 1 refills, Not taking escitalopram 20 mg Tab, 20 mg= 1 tab(s), Oral, Daily, 3 refills Fish Oil 500 mg oral capsule, 1000 mg= 2 cap(s), Oral, BID Flonase 0.05 mg/inh [place], 2 spray(s), Nasal, Daily gabapentin 300 mg Cap, 300 mg= 1 cap(s), Oral, TID, 3 refills Handicapped Parking Placard, 0 hydrOXYzine hydrochloride 25 mg Tab, 25 mg= 1 tab(s), Oral, QID, PRN, 1 refills predniSONE 10 mg Tab, 1 -, Oral, As Directed, Not taking Singulair 10 mg Tab, 10 mg= 1 tab(s), Oral, qPM, 1 refills Vial A, Normal Patient Dose, SubCutaneous, Once Vitamin C 500 mg oral tablet, chewable, 500 mg= 1 tab(s), Chewed, Daily Vitamin D 1000 intl units Tab, 25 mcg= 1 tab(s), Oral, Daily Allergies Anaprox (Nausea) amoxicillin (Rash) codeine (Lightheaded, Nausea with Vomiting) Immunizations Vaccine Date Status Comments pneumococcal 23-valent vaccine - Not Given Postpone due to refusal pneumococcal 13-valent vaccine - Not Given Postpone due to refusal influenza virus vaccine, inactivated - Not Given Postpone due to refusal influenza virus vaccine, inactivated - Not Given Postpone due to refusal influenza virus vaccine, inactivated - Not Given Postpone due to refusal influenza virus vaccine, inactivated - Not Given Postpone due to refusal pneumococcal 23-valent vaccine - Not Given Postpone due to refusal SARS-CoV-2 (COVID-19) mRNA-1273 vaccine 06/15/2021 Recorded SARS-CoV-2 (COVID-19) mRNA-1273 vaccine 10/06/2020 Recorded 2022-11-23: 60 SARS-CoV-2 (COVID-19) mRNA-1273 vaccine 09/26/2020 Recorded SARS-CoV-2 (COVID-19) mRNA-1273 vaccine 09/08/2020 Recorded pneumococcal 23-valent vaccine 04/07/2005 Recorded Normal [facility] Nurse Consultation Noteon Nurse Consultation Note Reason for Visit Allergy injection Medications Albuterol (Eqv-ProAir HFA) 90 mcg/inh inhalation aerosol, 2 puff(s), Inhalation, QID, PRN, 3 refills albuterol 0.083% Inh Robyn 3 mL, 0.083% - 3mL dosing units, Inhalation, q6hr, PRN, 2 refills budesonide 0.5 mg/2 mL Inh Susp, 0.5 mg= 2 mL, NEB, BID, 1 refills calcium-vitamin D 200 mg-250 intl units oral tablet, 1 tab(s), Oral, BID cetirizine 10 mg Tab, 10 mg= 1 tab(s), Oral, Daily clindamycin 300 mg oral cap, 300 mg= 1 cap(s), Oral, q6hr, 1 refills, Not taking escitalopram 20 mg Tab, 20 mg= 1 tab(s), Oral, Daily, 3 refills Fish Oil 500 mg oral capsule, 1000 mg= 2 cap(s), Oral, BID Flonase 0.05 mg/inh [place], 2 spray(s), Nasal, Daily gabapentin 300 mg Cap, 300 mg= 1 cap(s), Oral, TID, 3 refills Handicapped Parking Placard, 0 hydrOXYzine hydrochloride 25 mg Tab, 25 mg= 1 tab(s), Oral, QID, PRN, 1 refills predniSONE 10 mg Tab, 1 -, Oral, As Directed, Not taking Singulair 10 mg Tab, 10 mg= 1 tab(s), Oral, qPM, 1 refills Vial A, Normal Patient Dose, SubCutaneous, Once Vitamin C 500 mg oral tablet, chewable, 500 mg= 1 tab(s), Chewed, Daily Vitamin D 1000 intl units Tab, 25 mcg= 1 tab(s), Oral, Daily Allergies Anaprox (Nausea) amoxicillin (Rash) codeine (Lightheaded, Nausea with Vomiting) Immunizations Vaccine Date Status Comments pneumococcal 23-valent vaccine - Not Given Postpone due to refusal pneumococcal 13-valent vaccine - Not Given Postpone due to refusal influenza virus vaccine, inactivated - Not Given Postpone due to refusal influenza virus vaccine, inactivated - Not Given Postpone due to refusal influenza virus vaccine, inactivated - Not Given Postpone due to refusal influenza virus vaccine, inactivated - Not Given Postpone due to refusal pneumococcal 23-valent vaccine - Not Given Postpone due to refusal SARS-CoV-2 (COVID-19) mRNA-1273 vaccine 06/15/2021 Recorded SARS-CoV-2 (COVID-19) mRNA-1273 vaccine 10/06/2020 Recorded 2022-11-23: 60 SARS-CoV-2 (COVID-19) mRNA-1273 vaccine 09/26/2020 Recorded SARS-CoV-2 (COVID-19) mRNA-1273 vaccine 09/08/2020 Recorded pneumococcal 23-valent vaccine 04/07/2005 Recorded Normal [facility] Nurse Consultation Noteon Nurse Consultation Note Reason for Visit Allergy injection Medications Albuterol (Eqv-ProAir HFA) 90 mcg/inh inhalation aerosol, 2 puff(s), Inhalation, QID, PRN, 3 refills albuterol 0.083% Inh Robyn 3 mL, 0.083% - 3mL dosing units, Inhalation, q6hr, PRN, 2 refills budesonide 0.5 mg/2 mL Inh Susp, 0.5 mg= 2 mL, NEB, BID, 1 refills calcium-vitamin D 200 mg-250 intl units oral tablet, 1 tab(s), Oral, BID cetirizine 10 mg Tab, 10 mg= 1 tab(s), Oral, Daily clindamycin 300 mg oral cap, 300 mg= 1 cap(s), Oral, q6hr, 1 refills, Not taking escitalopram 20 mg Tab, 20 mg= 1 tab(s), Oral, Daily, 3 refills Fish Oil 500 mg oral capsule, 1000 mg= 2 cap(s), Oral, BID Flonase 0.05 mg/inh [place], 2 spray(s), Nasal, Daily gabapentin 300 mg Cap, 300 mg= 1 cap(s), Oral, TID, 3 refills Handicapped Parking Placard, 0 hydrOXYzine hydrochloride 25 mg Tab, 25 mg= 1 tab(s), Oral, QID, PRN, 1 refills predniSONE 10 mg Tab, 1 -, Oral, As Directed, Not taking Singulair 10 mg Tab, 10 mg= 1 tab(s), Oral, qPM, 1 refills Vial A, Normal Patient Dose, SubCutaneous, Once Vitamin C 500 mg oral tablet, chewable, 500 mg= 1 tab(s), Chewed, Daily Vitamin D 1000 intl units Tab, 25 mcg= 1 tab(s), Oral, Daily Allergies Anaprox (Nausea) amoxicillin (Rash) codeine (Lightheaded, Nausea with Vomiting) Immunizations Vaccine Date Status Comments pneumococcal 23-valent vaccine - Not Given Postpone due to refusal pneumococcal 13-valent vaccine - Not Given Postpone due to refusal influenza virus vaccine, inactivated - Not Given Postpone due to refusal influenza virus vaccine, inactivated - Not Given Postpone due to refusal influenza virus vaccine, inactivated - Not Given Postpone due to refusal influenza virus vaccine, inactivated - Not Given Postpone due to refusal pneumococcal 23-valent vaccine - Not Given Postpone due to refusal SARS-CoV-2 (COVID-19) mRNA-1273 vaccine 06/15/2021 Recorded SARS-CoV-2 (COVID-19) mRNA-1273 vaccine 10/06/2020 Recorded 2022-11-23: 60 SARS-CoV-2 (COVID-19) mRNA-1273 vaccine 09/26/2020 Recorded SARS-CoV-2 (COVID-19) mRNA-1273 vaccine 09/08/2020 Recorded pneumococcal 23-valent vaccine 04/07/2005 Recorded Normal [facility] Nurse Consultation Noteon Nurse Consultation Note Reason for Visit Allergy injection Medications Albuterol (Eqv-ProAir HFA) 90 mcg/inh inhalation aerosol, 2 puff(s), Inhalation, QID, PRN, 3 refills albuterol 0.083% Inh Robyn 3 mL, 0.083% - 3mL dosing units, Inhalation, q6hr, PRN, 2 refills budesonide 0.5 mg/2 mL Inh Susp, 0.5 mg= 2 mL, NEB, BID, 1 refills calcium-vitamin D 200 mg-250 intl units oral tablet, 1 tab(s), Oral, BID cetirizine 10 mg Tab, 10 mg= 1 tab(s), Oral, Daily clindamycin 300 mg oral cap, 300 mg= 1 cap(s), Oral, q6hr, 1 refills, Not taking escitalopram 20 mg Tab, 20 mg= 1 tab(s), Oral, Daily, 3 refills Fish Oil 500 mg oral capsule, 1000 mg= 2 cap(s), Oral, BID Flonase 0.05 mg/inh [place], 2 spray(s), Nasal, Daily gabapentin 300 mg Cap, 300 mg= 1 cap(s), Oral, TID, 3 refills Handicapped Parking Placard, 0 hydrOXYzine hydrochloride 25 mg Tab, 25 mg= 1 tab(s), Oral, QID, PRN, 1 refills predniSONE 10 mg Tab, 1 -, Oral, As Directed, Not taking Singulair 10 mg Tab, 10 mg= 1 tab(s), Oral, qPM, 1 refills Vial A, Normal Patient Dose, SubCutaneous, Once Vitamin C 500 mg oral tablet, chewable, 500 mg= 1 tab(s), Chewed, Daily Vitamin D 1000 intl units Tab, 25 mcg= 1 tab(s), Oral, Daily Allergies Anaprox (Nausea) amoxicillin (Rash) codeine (Lightheaded, Nausea with Vomiting) Immunizations Vaccine Date Status Comments pneumococcal 23-valent vaccine - Not Given Postpone due to refusal pneumococcal 13-valent vaccine - Not Given Postpone due to refusal influenza virus vaccine, inactivated - Not Given Postpone due to refusal influenza virus vaccine, inactivated - Not Given Postpone due to refusal influenza virus vaccine, inactivated - Not Given Postpone due to refusal influenza virus vaccine, inactivated - Not Given Postpone due to refusal pneumococcal 23-valent vaccine - Not Given Postpone due to refusal SARS-CoV-2 (COVID-19) mRNA-1273 vaccine 06/15/2021 Recorded SARS-CoV-2 (COVID-19) mRNA-1273 vaccine 10/06/2020 Recorded 2022-11-23: 60 SARS-CoV-2 (COVID-19) mRNA-1273 vaccine 09/26/2020 Recorded SARS-CoV-2 (COVID-19) mRNA-1273 vaccine 09/08/2020 Recorded pneumococcal 23-valent vaccine 04/07/2005 Recorded Normal [facility] MA Mamm Screen w/CAD if perf and 3D Bilon 10-20-2023 MA Mamm Screen w/CAD if perf and 3D Martell Exam Date/Time: 10/18/2023 12:43 EDT Reason for Exam: SCREENING Report IMPRESSION: BIRADS 2 BENIGN FINDINGS, NORMAL INTERVAL FOLLOW-UP.12 MONTH RECALL. CLINICAL HISTORY: SCREENING. COMPARISON: 08/05/2022. COMMENT: Routine views and tomosynthesis views of both breasts were obtained. There are scattered areas of fibroglandular density. There are postsurgical changes in the breasts. No dominant breast mass nor neoplastic calcifications are identified in either breast. There has been no significant change from the previous exam. The examination was reviewed with Computer Aided Detection. Breast Density: No Mammography is very important to your health. The current [employer] and National [employer] guidelines recommends annual mammography beginning at age 40. This facility utilizes a reminder system to ensure all patients receive reminder notifications at the appropriate time based on the recommendations of this exam. Board Certified Radiologists. Accredited by the ACR and FDA. Ordering Provider: REFERRAL, SELF FINAL REPORT Dictated: 10/20/2023 3:40 pm Uday Zaldivar M.D. Signed (Electronic Signature): 10/20/2023 3:40 pm Signed by: Uday Zaldivar M.D. Transcribed by: DURGA Technologist: RAFFY Assessment: BI-RADS Category 2-Benign finding Recommendation: Normal interval follow-up Normal [facility] Consent for Treatmenton 10-08 Consent for Treatment [id number] D1#1.00TIFF [facility] Nurse Consultation Noteon Nurse Consultation Note Reason for Visit Allergy injection Medications Albuterol (Eqv-ProAir HFA) 90 mcg/inh inhalation aerosol, 2 puff(s), Inhalation, QID, PRN, 3 refills albuterol 0.083% Inh Robyn 3 mL, 0.083% - 3mL dosing units, Inhalation, q6hr, PRN, 2 refills budesonide 0.5 mg/2 mL Inh Susp, 0.5 mg= 2 mL, NEB, BID, 1 refills calcium-vitamin D 200 mg-250 intl units oral tablet, 1 tab(s), Oral, BID cetirizine 10 mg Tab, 10 mg= 1 tab(s), Oral, Daily clindamycin 300 mg oral cap, 300 mg= 1 cap(s), Oral, q6hr, 1 refills, Not taking escitalopram 20 mg Tab, 20 mg= 1 tab(s), Oral, Daily, 3 refills Fish Oil 500 mg oral capsule, 1000 mg= 2 cap(s), Oral, BID Flonase 0.05 mg/inh [place], 2 spray(s), Nasal, Daily gabapentin 300 mg Cap, 300 mg= 1 cap(s), Oral, TID, 3 refills Handicapped Parking Placard, 0 hydrOXYzine hydrochloride 25 mg Tab, 25 mg= 1 tab(s), Oral, QID, PRN, 1 refills predniSONE 10 mg Tab, 1 -, Oral, As Directed, Not taking Singulair 10 mg Tab, 10 mg= 1 tab(s), Oral, qPM, 1 refills Vial A, Normal Patient Dose, SubCutaneous, Once Vitamin C 500 mg oral tablet, chewable, 500 mg= 1 tab(s), Chewed, Daily Vitamin D 1000 intl units Tab, 25 mcg= 1 tab(s), Oral, Daily Allergies Anaprox (Nausea) amoxicillin (Rash) codeine (Lightheaded, Nausea with Vomiting) Immunizations Vaccine Date Status Comments pneumococcal 23-valent vaccine - Not Given Postpone due to refusal pneumococcal 13-valent vaccine - Not Given Postpone due to refusal influenza virus vaccine, inactivated - Not Given Postpone due to refusal influenza virus vaccine, inactivated - Not Given Postpone due to refusal influenza virus vaccine, inactivated - Not Given Postpone due to refusal influenza virus vaccine, inactivated - Not Given Postpone due to refusal pneumococcal 23-valent vaccine - Not Given Postpone due to refusal SARS-CoV-2 (COVID-19) mRNA-1273 vaccine 06/15/2021 Recorded SARS-CoV-2 (COVID-19) mRNA-1273 vaccine 10/06/2020 Recorded 2022-11-23: 60 SARS-CoV-2 (COVID-19) mRNA-1273 vaccine 09/26/2020 Recorded SARS-CoV-2 (COVID-19) mRNA-1273 vaccine 09/08/2020 Recorded pneumococcal 23-valent vaccine 04/07/2005 Recorded Normal [facility] Ambulatory Visit Summaryon 0 10-02-2023 Ambulatory Visit Summary ANGELA ALONZO :1955 Visit Date:10/02/2023 Ambulatory Visit Instructions Your Care Team Attending Physician - Guerita Knapp PA-C Primary Care Physician - Guerita Knapp PA-C This Is Your [place]ations [place] [facility] [place]Handicapped Parking Placard) albuterol (Albuterol (Eqv-ProAir HFA) 90 mcg/inh inhalation aerosol) albuterol (albuterol 0.083% Inh Robyn 3 mL) ascorbic acid (Vitamin C 500 mg oral tablet, chewable) budesonide (budesonide 0.5 mg/2 mL Inh Susp) calcium-vitamin D (calcium-vitamin D 200 mg-250 intl units oral tablet) cetirizine (cetirizine 10 mg Tab) cholecalciferol (Vitamin D 1000 intl units Tab) clindamycin (clindamycin 300 mg oral cap) escitalopram (escitalopram 20 mg Tab) fluticasone nasal (Flonase 0.05 mg/inh [place]) gabapentin (gabapentin 300 mg Cap) hydrOXYzine (hydrOXYzine hydrochloride 25 mg Tab) montelukast (Singulair 10 mg Tab) omega-3 polyunsaturated fatty acids (Fish Oil 500 mg oral capsule) predniSONE (predniSONE 10 mg Tab) Procedures Performed Colonoscopy (07/07/2022), Total knee arthroplasty (01/03/2022), Cardiac catheterization, left heart (12/17/2021), left needle localized breast biopsy (08/22/2012), Breast biopsy and related procedures (01/2002), HEEL SPUR REMOVAL. What to do next Scheduled Follow-Up Appointments Monday 10:40 AM EDT Where: [facility] [place] Normal [address] [place] [address]- \.br\ Medications\.br\ What How Much When Instructions\.br\ Unchanged albuterol (Albuterol (Eqv-ProAir HFA) 90 mcg/ inh inhalation aerosol) 2 Puffs Inhalation 4 times a day as needed for Wheezing Duration: 90 Days\.br\ Unchanged albuterol (albuterol 0.083% Inh Robyn 3 mL) 0.083% - 3mL dosing units Inhalation Every 6 hours as needed for Wheezing\.br\ Unchanged ascorbic acid (Vitamin C 500 mg oral tablet, chewable) 1 Tablets Chewed Every day\.br\ Unchanged budesonide (budesonide 0.5 mg/ 2 mL Inh Susp) 2 Milliliter Nebulized inhalation (aerosol) 2 times a day\.br\ Unchanged calcium-vitamin D (calcium-vitamin D 200 mg-250 intl units oral tablet) 1 Tablets By Mouth 2 times a day\.br\ Unchanged cetirizine (cetirizine 10 mg Tab) 1 Tablets By Mouth Every day\.br\ Unchanged cholecalciferol (Vitamin D 1000 intl units Tab) 1 Tablets By Mouth Every day\.br\ Unchanged clindamycin (clindamycin 300 mg oral cap) 1 Capsules By Mouth Every 6 hours 1 hour before procedure \.br\ Unchanged escitalopram (escitalopram 20 mg Tab) 1 Tablets By Mouth Every day\.br\ Unchanged fluticasone nasal (Flonase 0.05 mg/ inh [place]) 2 Sprays Nasal Inhalation Every day each nostril \.br\ Unchanged gabapentin (gabapentin 300 mg Cap) 1 Capsules By Mouth 3 times a day\.br\ Unchanged hydrOXYzine (hydrOXYzine hydrochloride 25 mg Tab) 1 Tablets By Mouth 4 times a day as needed for as needed for itching\.br\ Unchanged Misc Prescription (Handicapped Parking Placard) 0 5 year duration \.br\ Unchanged montelukast (Singulair 10 mg Tab) 1 Tablets By Mouth Once a day (in the evening)\.br\ Unchanged omega-3 polyunsaturated fatty acids (Fish Oil 500 mg oral capsule) 2 Capsules By Mouth 2 times a day\.br\ Unchanged predniSONE (predniSONE 10 mg Tab) 1 Dose Separtor By Mouth As Directed Take 3 tabs by mouth daily x3 days, then 2 tabs daily x3 days, then 1 tab daily x3 days. \.br\ Allergies\.br\ Anaprox (Nausea)\.br\ amoxicillin (Rash)\.br\ codeine (Lightheaded, Nausea with Vomiting)\.br\ Problems\.br\ Ongoing - Any problem that you are currently receiving treatment for.\.br\ Abnormal ECG\.br\ Allergic rhinitis, seasonal\.br\ Asthma, moderate persistent\.br\ B12 nutritional deficiency\.br\ BMI 34.0-34.9,adult\. br\ BMI 35.0-35.9,adult\. br\ Diastolic dysfunction without heart failure\.br\ External hemorrhoids\.br\ Family history of colon cancer\.br\ Hyperlipemia, mixed\.br\ Influenza vaccination declined\.br\ Moderate recurrent major depression\.br\ Obesity due to excess calories\.br\ Onychomycosis of left great toe\.br\ Other insomnia\.br\ Perennial allergic rhinitis\.br\ Right foot pain\.br\ Sensory peripheral neuropathy\.br\ Historical - Any problem that you are no longer receiving treatment for.\.br\ Artificial menopause\.br\ Atrophic vaginitis\.br\ Breast cancer screening by mammogram\.br\ Colon cancer screening\.br\ COVID-19 vaccine series started\.br\ Knee pain\.br\ Lumbar back pain\.br\ Menopausal syndrome\.br\ Osteoporosis of lumbar spine\.br\ Patient Survey\.br\ You may receive a survey via text or e-mail asking about your office visit. Please share your experience with us by completing your survey. We appreciate your feedback and thank you for choosing us for your care.\.br\ \.br\ [facility] Nurse Consultation Noteon Nurse Consultation Note Reason for Visit allergy injection Medications Albuterol (Eqv-ProAir HFA) 90 mcg/inh inhalation aerosol, 2 puff(s), Inhalation, QID, PRN, 3 refills albuterol 0.083% Inh Robyn 3 mL, 0.083% - 3mL dosing units, Inhalation, q6hr, PRN, 2 refills budesonide 0.5 mg/2 mL Inh Susp, 0.5 mg= 2 mL, NEB, BID, 1 refills calcium-vitamin D 200 mg-250 intl units oral tablet, 1 tab(s), Oral, BID cetirizine 10 mg Tab, 10 mg= 1 tab(s), Oral, Daily clindamycin 300 mg oral cap, 300 mg= 1 cap(s), Oral, q6hr, 1 refills, Not taking escitalopram 20 mg Tab, 20 mg= 1 tab(s), Oral, Daily, 1 refills Fish Oil 500 mg oral capsule, 1000 mg= 2 cap(s), Oral, BID Flonase 0.05 mg/inh [place], 2 spray(s), Nasal, Daily gabapentin 300 mg Cap, 300 mg= 1 cap(s), Oral, TID, 3 refills Handicapped Parking Placard, 0 hydrOXYzine hydrochloride 25 mg Tab, 25 mg= 1 tab(s), Oral, QID, PRN, 1 refills predniSONE 10 mg Tab, 1 -, Oral, As Directed, Not taking Singulair 10 mg Tab, 10 mg= 1 tab(s), Oral, qPM, 1 refills Vial A, Normal Patient Dose, SubCutaneous, Once Vitamin C 500 mg oral tablet, chewable, 500 mg= 1 tab(s), Chewed, Daily Vitamin D 1000 intl units Tab, 25 mcg= 1 tab(s), Oral, Daily Allergies Anaprox (Nausea) amoxicillin (Rash) codeine (Lightheaded, Nausea with Vomiting) Immunizations Vaccine Date Status Comments pneumococcal 23-valent vaccine - Not Given Postpone due to refusal pneumococcal 13-valent vaccine - Not Given Postpone due to refusal influenza virus vaccine, inactivated - Not Given Postpone due to refusal influenza virus vaccine, inactivated - Not Given Postpone due to refusal influenza virus vaccine, inactivated - Not Given Postpone due to refusal influenza virus vaccine, inactivated - Not Given Postpone due to refusal pneumococcal 23-valent vaccine - Not Given Postpone due to refusal SARS-CoV-2 (COVID-19) mRNA-1273 vaccine 06/15/2021 Recorded SARS-CoV-2 (COVID-19) mRNA-1273 vaccine 10/06/2020 Recorded 2022-11-23: 60 SARS-CoV-2 (COVID-19) mRNA-1273 vaccine 09/26/2020 Recorded SARS-CoV-2 (COVID-19) mRNA-1273 vaccine 09/08/2020 Recorded pneumococcal 23-valent vaccine 04/07/2005 Recorded Normal [facility] Nurse Consultation Noteon Nurse Consultation Note Reason for Visit Allergy injection Assessment/Plan 1. Allergic rhinitis, seasonal (J30.2: Other seasonal allergic rhinitis) Medications Albuterol (Eqv-ProAir HFA) 90 mcg/inh inhalation aerosol, 2 puff(s), Inhalation, QID, PRN, 3 refills albuterol 0.083% Inh Robyn 3 mL, 0.083% - 3mL dosing units, Inhalation, q6hr, PRN, 2 refills budesonide 0.5 mg/2 mL Inh Susp, 0.5 mg= 2 mL, NEB, BID, 1 refills calcium-vitamin D 200 mg-250 intl units oral tablet, 1 tab(s), Oral, BID cetirizine 10 mg Tab, 10 mg= 1 tab(s), Oral, Daily clindamycin 300 mg oral cap, 300 mg= 1 cap(s), Oral, q6hr, 1 refills, Not taking escitalopram 20 mg Tab, 20 mg= 1 tab(s), Oral, Daily, 1 refills Fish Oil 500 mg oral capsule, 1000 mg= 2 cap(s), Oral, BID Flonase 0.05 mg/inh [place], 2 spray(s), Nasal, Daily gabapentin 300 mg Cap, 300 mg= 1 cap(s), Oral, TID, 3 refills Handicapped Parking Placard, 0 hydrOXYzine hydrochloride 25 mg Tab, 25 mg= 1 tab(s), Oral, QID, PRN, 1 refills predniSONE 10 mg Tab, 1 -, Oral, As Directed, Not taking Singulair 10 mg Tab, 10 mg= 1 tab(s), Oral, qPM, 1 refills Vial A, Normal Patient Dose, SubCutaneous, Once Vitamin C 500 mg oral tablet, chewable, 500 mg= 1 tab(s), Chewed, Daily Vitamin D 1000 intl units Tab, 25 mcg= 1 tab(s), Oral, Daily Allergies Anaprox (Nausea) amoxicillin (Rash) codeine (Lightheaded, Nausea with Vomiting) Immunizations Vaccine Date Status Comments pneumococcal 23-valent vaccine - Not Given Postpone due to refusal pneumococcal 13-valent vaccine - Not Given Postpone due to refusal influenza virus vaccine, inactivated - Not Given Postpone due to refusal influenza virus vaccine, inactivated - Not Given Postpone due to refusal influenza virus vaccine, inactivated - Not Given Postpone due to refusal influenza virus vaccine, inactivated - Not Given Postpone due to refusal pneumococcal 23-valent vaccine - Not Given Postpone due to refusal SARS-CoV-2 (COVID-19) mRNA-1273 vaccine 06/15/2021 Recorded SARS-CoV-2 (COVID-19) mRNA-1273 vaccine 10/06/2020 Recorded 2022-11-23: 60 SARS-CoV-2 (COVID-19) mRNA-1273 vaccine 09/26/2020 Recorded SARS-CoV-2 (COVID-19) mRNA-1273 vaccine 09/08/2020 Recorded pneumococcal 23-valent vaccine 04/07/2005 Recorded Normal [facility] Ambulatory Visit Summaryon 0 09-04-2023 Ambulatory Visit Summary ANGELA ALONZO :1955 Visit Date:09/04/2023 Ambulatory Visit Instructions Your Diagnosis Allergic rhinitis, seasonal Your Care Team Attending Physician - Guerita Knapp PA-C Primary Care Physician - Guerita Knapp PA-C This Is Your Medications [place] [facility] [place] (Handicapped Parking Placard) albuterol (Albuterol (Eqv-ProAir HFA) 90 mcg/inh inhalation aerosol) albuterol (albuterol 0.083% Inh Robyn 3 mL) ascorbic acid (Vitamin C 500 mg oral tablet, chewable) budesonide (budesonide 0.5 mg/2 mL Inh Susp) calcium-vitamin D (calcium-vitamin D 200 mg-250 intl units oral tablet) cetirizine (cetirizine 10 mg Tab) cholecalciferol (Vitamin D 1000 intl units Tab) clindamycin (clindamycin 300 mg oral cap) escitalopram (escitalopram 20 mg Tab) fluticasone nasal (Flonase 0.05 mg/inh [place]) gabapentin (gabapentin 300 mg Cap) hydrOXYzine (hydrOXYzine hydrochloride 25 mg Tab) montelukast (Singulair 10 mg Tab) omega-3 polyunsaturated fatty acids (Fish Oil 500 mg oral capsule) predniSONE (predniSONE 10 mg Tab) Procedures Performed Colonoscopy (07/07/2022), Total knee arthroplasty (01/03/2022), Cardiac catheterization, left heart (12/17/2021), left needle localized breast biopsy (08/22/2012), Breast biopsy and related procedures (01/2002), HEEL SPUR REMOVAL. What to do next Scheduled Follow-Up Appointments Monday 10:40 AM EDT Where: [facility] Medicine [place] [phone] \.br\ Medications\.br\ What How Much When Instructions\.br\ Unchanged albuterol (Albuterol (Eqv-ProAir HFA) 90 mcg/ inh inhalation aerosol) 2 Puffs Inhalation 4 times a day as needed for Wheezing Duration: 90 Days\.br\ Unchanged albuterol (albuterol 0.083% Inh Robyn 3 mL) 0.083% - 3mL dosing units Inhalation Every 6 hours as needed for Wheezing\.br\ Unchanged ascorbic acid (Vitamin C 500 mg oral tablet, chewable) 1 Tablets Chewed Every day\.br\ Unchanged budesonide (budesonide 0.5 mg/ 2 mL Inh Susp) 2 Milliliter Nebulized inhalation (aerosol) 2 times a day\.br\ Unchanged calcium-vitamin D (calcium-vitamin D 200 mg-250 intl units oral tablet) 1 Tablets By Mouth 2 times a day\.br\ Unchanged cetirizine (cetirizine 10 mg Tab) 1 Tablets By Mouth Every day\.br\ Unchanged cholecalciferol (Vitamin D 1000 intl units Tab) 1 Tablets By Mouth Every day\.br\ Unchanged clindamycin (clindamycin 300 mg oral cap) 1 Capsules By Mouth Every 6 hours 1 hour before procedure \.br\ Unchanged escitalopram (escitalopram 20 mg Tab) 1 Tablets By Mouth Every day\.br\ Unchanged fluticasone nasal (Flonase 0.05 mg/ inh [place]) 2 Sprays Nasal Inhalation Every day each nostril \.br\ Unchanged gabapentin (gabapentin 300 mg Cap) 1 Capsules By Mouth 3 times a day\.br\ Unchanged hydrOXYzine (hydrOXYzine hydrochloride 25 mg Tab) 1 Tablets By Mouth 4 times a day as needed for as needed for itching\.br\ Unchanged Misc Prescription (Handicapped Parking Placard) 0 5 year duration \.br\ Unchanged montelukast (Singulair 10 mg Tab) 1 Tablets By Mouth Once a day (in the evening)\.br\ Unchanged omega-3 polyunsaturated fatty acids (Fish Oil 500 mg oral capsule) 2 Capsules By Mouth 2 times a day\.br\ Unchanged predniSONE (predniSONE 10 mg Tab) 1 Dose Separtor By Mouth As Directed Take 3 tabs by mouth daily x3 days, then 2 tabs daily x3 days, then 1 tab daily x3 days. \.br\ Medications and Immunizations Administered\.br\ Given\.br\ Patient Specific Meds, 0.5 mL, SubCutaneous. For: Allergic rhinitis, seasonal\.br\ Allergies\.br\ Anaprox (Nausea)\.br\ amoxicillin (Rash)\.br\ codeine (Lightheaded, Nausea with Vomiting)\.br\ Problems\.br\ Ongoing - Any problem that you are currently receiving treatment for.\.br\ Abnormal ECG\.br\ Allergic rhinitis, seasonal\.br\ Asthma, moderate persistent\.br\ B12 nutritional deficiency\.br\ BMI 34.0-34.9,adult\. br\ BMI 35.0-35.9,adult\. br\ Diastolic dysfunction without heart failure\.br\ External hemorrhoids\.br\ Family history of colon cancer\.br\ Hyperlipemia, mixed\.br\ Influenza vaccination declined\.br\ Moderate recurrent major depression\.br\ Obesity due to excess calories\.br\ Onychomycosis of left great toe\.br\ Other insomnia\.br\ Perennial allergic rhinitis\.br\ Right foot pain\.br\ Sensory peripheral neuropathy\.br\ Historical - Any problem that you are no longer receiving treatment for.\.br\ Artificial menopause\.br\ Atrophic vaginitis\.br\ Breast cancer screening by mammogram\.br\ Colon cancer screening\.br\ COVID-19 vaccine series started\.br\ Knee pain\.br\ Lumbar back pain\.br\ Menopausal syndrome\.br\ Osteoporosis of lumbar spine\.br\ Patient Survey\.br\ You may receive a survey via text or e-mail asking about your office visit. Please share your experience with us by completing your survey. We appreciate your feedback and thank you for choosing us for your care.\.br\ \.br\ [facility] Nurse Consultation Noteon Nurse Consultation Note Reason for Visit Allergy injection Medications Albuterol (Eqv-ProAir HFA) 90 mcg/inh inhalation aerosol, 2 puff(s), Inhalation, QID, PRN, 3 refills albuterol 0.083% Inh Robyn 3 mL, 0.083% - 3mL dosing units, Inhalation, q6hr, PRN, 2 refills budesonide 0.5 mg/2 mL Inh Susp, 0.5 mg= 2 mL, NEB, BID, 1 refills calcium-vitamin D 200 mg-250 intl units oral tablet, 1 tab(s), Oral, BID cetirizine 10 mg Tab, 10 mg= 1 tab(s), Oral, Daily clindamycin 300 mg oral cap, 300 mg= 1 cap(s), Oral, q6hr, 1 refills, Not taking escitalopram 20 mg Tab, 20 mg= 1 tab(s), Oral, Daily, 1 refills Fish Oil 500 mg oral capsule, 1000 mg= 2 cap(s), Oral, BID Flonase 0.05 mg/inh [place], 2 spray(s), Nasal, Daily gabapentin 300 mg Cap, 300 mg= 1 cap(s), Oral, TID, 3 refills Handicapped Parking Placard, 0 hydrOXYzine hydrochloride 25 mg Tab, 25 mg= 1 tab(s), Oral, QID, PRN, 1 refills predniSONE 10 mg Tab, 1 -, Oral, As Directed, Not taking Singulair 10 mg Tab, 10 mg= 1 tab(s), Oral, qPM, 1 refills Vitamin C 500 mg oral tablet, chewable, 500 mg= 1 tab(s), Chewed, Daily Vitamin D 1000 intl units Tab, 25 mcg= 1 tab(s), Oral, Daily Allergies Anaprox (Nausea) amoxicillin (Rash) codeine (Lightheaded, Nausea with Vomiting) Immunizations Vaccine Date Status Comments pneumococcal 23-valent vaccine - Not Given Postpone due to refusal pneumococcal 13-valent vaccine - Not Given Postpone due to refusal influenza virus vaccine, inactivated - Not Given Postpone due to refusal influenza virus vaccine, inactivated - Not Given Postpone due to refusal influenza virus vaccine, inactivated - Not Given Postpone due to refusal influenza virus vaccine, inactivated - Not Given Postpone due to refusal pneumococcal 23-valent vaccine - Not Given Postpone due to refusal SARS-CoV-2 (COVID-19) mRNA-1273 vaccine 06/15/2021 Recorded SARS-CoV-2 (COVID-19) mRNA-1273 vaccine 10/06/2020 Recorded 2022-11-23: 60 SARS-CoV-2 (COVID-19) mRNA-1273 vaccine 09/26/2020 Recorded SARS-CoV-2 (COVID-19) mRNA-1273 vaccine 09/08/2020 Recorded pneumococcal 23-valent vaccine 04/07/2005 Recorded [facility] Provider Letteron 08-23-2023 Provider Letter [address] [place] [address] [phone] August 23, 2023 ANGELA ALONZO [address] [place] [address] : [address] Colindres The above patient has been evaluated at your request on 08/14/23 for preoperative clearance. After assessment of available pertinent labs and diagnostic tests performed on 08/14/23 and 08/15/23, I feel this patient is medically optimized for surgery. Final discretion of whether the patient is cleared for surgery remains up to the surgeon/anesthesiol ogist. Thank you, ARMAND Torre, VAUGHN [facility]: [facility] Nurse Consultation Noteon Nurse Consultation Note Reason for Visit Allergy inj Medications Albuterol (Eqv-ProAir HFA) 90 mcg/inh inhalation aerosol, 2 puff(s), Inhalation, QID, PRN, 3 refills albuterol 0.083% Inh Robyn 3 mL, 0.083% - 3mL dosing units, Inhalation, q6hr, PRN, 2 refills budesonide 0.5 mg/2 mL Inh Susp, 0.5 mg= 2 mL, NEB, BID, 1 refills calcium-vitamin D 200 mg-250 intl units oral tablet, 1 tab(s), Oral, BID cetirizine 10 mg Tab, 10 mg= 1 tab(s), Oral, Daily clindamycin 300 mg oral cap, 300 mg= 1 cap(s), Oral, q6hr, 1 refills, Not taking escitalopram 20 mg Tab, 20 mg= 1 tab(s), Oral, Daily, 1 refills Fish Oil 500 mg oral capsule, 1000 mg= 2 cap(s), Oral, BID Flonase 0.05 mg/inh [place], 2 spray(s), Nasal, Daily gabapentin 300 mg Cap, 300 mg= 1 cap(s), Oral, TID, 3 refills Handicapped Parking Placard, 0 hydrOXYzine hydrochloride 25 mg Tab, 25 mg= 1 tab(s), Oral, QID, PRN, 1 refills predniSONE 10 mg Tab, 1 -, Oral, As Directed, Not taking Singulair 10 mg Tab, 10 mg= 1 tab(s), Oral, qPM, 1 refills Vitamin C 500 mg oral tablet, chewable, 500 mg= 1 tab(s), Chewed, Daily Vitamin D 1000 intl units Tab, 25 mcg= 1 tab(s), Oral, Daily Allergies Anaprox (Nausea) amoxicillin (Rash) codeine (Lightheaded, Nausea with Vomiting) Immunizations Vaccine Date Status Comments pneumococcal 23-valent vaccine - Not Given Postpone due to refusal pneumococcal 13-valent vaccine - Not Given Postpone due to refusal influenza virus vaccine, inactivated - Not Given Postpone due to refusal influenza virus vaccine, inactivated - Not Given Postpone due to refusal influenza virus vaccine, inactivated - Not Given Postpone due to refusal influenza virus vaccine, inactivated - Not Given Postpone due to refusal pneumococcal 23-valent vaccine - Not Given Postpone due to refusal SARS-CoV-2 (COVID-19) mRNA-1273 vaccine 06/15/2021 Recorded SARS-CoV-2 (COVID-19) mRNA-1273 vaccine 10/06/2020 Recorded 2022-11-23: 60 SARS-CoV-2 (COVID-19) mRNA-1273 vaccine 09/26/2020 Recorded SARS-CoV-2 (COVID-19) mRNA-1273 vaccine 09/08/2020 Recorded pneumococcal 23-valent vaccine 04/07/2005 Recorded Normal [facility] Physician Referralon 024 Physician Referral [id number] 126#1.00TIFF Normal [facility] Consultation Noteon 08-16-19 24 Consultation Note [id number] 0F#1.00TIFF Normal [facility] Family Medicine Office/Clini c Noteon 08-16-2023 Family Medicine Office/Clinic Note Chief Complaint Surgery Clearance [facility] Staff Preoperative medical evaluation questions for a healthy patient Bunionectomy by Dr. Colindres, Aug 24, 2023. Questions 1. Do you usually get chest pain or breathlessness when you climb up two flights of stairs at normal speed? Denies 2. Do you have kidney disease? Denies 3. Has anyone in your family (blood relatives) had a problem following an anaesthetic? Yes mother had an issue 4. Have you ever had a heart attack? Denies 5. Have you ever been diagnosed with an irregular heartbeat? Denies 6. Have you ever had a stroke? Denies 7. If you have been put to sleep for an operation were there any anaesthetic problems? Denies 8. Do you suffer from epilepsy or seizures? Denies 9. Do you have any problems with pain, stiffness or arthritis in your neck or jaw? Denies 10. Do you have thyroid disease? Denies 11. Do you suffer from angina? Denies 12. Do you have liver disease? Denies 13. Have you ever been diagnosed with heart failure? Denies 14. Do you suffer from asthma? Yes 15. Do you have diabetes that requires insulin? Denies 16. Do you have diabetes that requires tablets only? Denies 17. Do you suffer from bronchitis? Denies History of Present Illness I have reviewed staff HPI and it is correct. Angela Alonzo is a 68-year-old female presents here in the office for surgical clearance for bunionectomy to be performed by Dr. Colindres on 08/24/2023. The patient has not had her presurgical clearance testing performed, but has EKG scheduled for tomorrow, 08/15/2023. The patient verbally consented to allow Damien Daniel to record this visit. The patient is scheduled for a right foot bunionectomy on 08/24/2023. She also experiences similar pain in her left toe. Dr. Colindres plans to address the left toe bunion as well. The patient reports heightened sensitivity in her toes, which began last summer. Currently, she is favoring the affected foot and attends weekly chiropractic sessions. She has an appointment with see, an orthopedic doctor, for her knee on 12/2023. Her last consultation with Dr. Colindres occurred 2 weeks ago. She experienced a fall, impacting her knees, between 2 and 3 weeks ago. She reports tightness in the posterior aspect of her leg, for which she has been applying Biofreeze. A recurrent knot has been noted. Uncertainty exists regarding the initiation of physical therapy with any. She experiences significant pain localized to the area of her proximal phalanges, specifically around the base of her toe. Occasionally, the pain also manifests on the dorsal aspect of her foot. She underwent knee surgery under anesthesia, which she tolerated well. The patient prefers not to use analgesics. She experienced sharp pain in her second toe while walking, which subsequently worsened, leading her to cease walking activities. This cessation has resulted in weight gain. Patient expresses desire to resume walking and acknowledges the need for weight loss to prevent potential diabetes. She denies any history of thrombosis in relation to any. The patient's blood pressure remains stable. She recently underwent a tooth extraction procedure. At present, there is no need for medication refills. She is experiencing insomnia. Additionally, her son is currently incarcerated. She comes next Monday on for an allergy injection. She previously saw a male doctor, whose name she cannot recall, as he has since retired. He initially diagnosed her with allergies in her late 30s and advised her to continue her allergy injections. For one summer, she experienced severe allergic reactions, with symptoms extending from her head to her chest. The cause was eventually attributed to high levels of pollen and airborne particulates that year. It has been approximately 2 years since her last visit. She typically consults with Dr. Karol Reynoso MD. Her medical history includes a familial history of diabetes, as her father was a diabetic. Patient has no other questions or concerns at this time. Review of Systems PHQ Score Initial Depression Screen Score: 0 SCORE All negative except as noted in the HPI. Physical Exam Vitals & Measurements T: 36.8 ?C(Temporal Artery) HR: 87(Peripheral) RR: 18 BP: 132/78 SpO2: 98% HT: 67 in HT: 170 cm WT: 101.7 kg WT: 223.74 lb BMI: 35.19 General: Obese female, well hydrated, no acute distress. Head: Normocephalic, atraumatic Eyes: EOMI, sclera clear, red reflex present bilaterally Ears: Bilateral tympanic membranes are pearly [place]ada with good cone of light Nose: No deformity, discharge, inflammation or lesions Mouth: Mucosa moist. Normal oropharynx and posterior pharynx without lesions or exudate. Tongue normal. Neck: No cervical lymphadenopathy Lungs: Lungs clear to auscultation Cardio: Regular rate and rhythm with no murmur Pulses: Pulses present in all four extremities, femoral pulses equal Abdomen: Normal bowel sounds, n (more content not included)... Normal [facility] Comment on above: Result Comment: Elec tronically Signed By: Guerita Knapp PA-C\.br\Date and Time Signed: 08/16/23 21:29 EST\.br\Electronically Co-Signed By: Luiz Crowley\.br\Date and Time Co-Signed: 08/14/23 14:15 EST\.br\Electronically Co-Signed By: Luiz Crowley XR Knee - right 3 [facility] Result: Bilateral standing PA, bilateral sunrise, and lateral of the affected knee were imaged today in the office. Patient has total knee arthroplasty on the right knee with no evidence of acute fracture or loosening of the component. She has excellent alignment of the prosthesis and joint her left knee is arthritic with [id number] changes to the medial compartment as well as patellofemoral joint. [facility] Radiology Study observation (narrative) [facility] Consent for Treatmenton Consent for Treatment [id number] 94#1.00TIFF Normal [facility] Consultation Noteon 08-15-19 Consultation Note [id number] D2#1.00TIFF Normal [facility] XR Chest 2 [facility] 4 XR Chest 2 Views Exam Date/Time: 08/15/2023 09:58 EST Reason for Exam: [id number] Report IMPRESSION: There is mild atelectasis versus infiltrate in the left lung base. CLINICAL HISTORY: Z01.818 EXAMINATION: XR Chest 2 Views COMPARISON: Chest x-ray from 11/12/2021 FINDINGS: The cardiac silhouette is at the upper limits of normal in size. The lungs are free of infiltrates effusions right lung or consolidations. Left lower lobe atelectasis versus infiltrate. There are no acute osseous changes. Ordering Provider: Brady Colindres FINAL REPORT Dictated: 08/15/2023 11:01 am Augustus Pgae MD, V. Signed (Electronic Signature): 08/15/2023 11:01 am Signed by: Augustus Page MD, V. Transcribed by: DP Technologist: DURGAR Technical Comments Radiation Dose: Ka,r in mGy = na DAP = na Normal [facility] BMPon 08-14-2023 Calcium [Mass/Vol] 9.8 mg/dL Normal 8.9-11.1 [facility] Comment on above: Performed By: #### 1 [id number] #### [facility] [address] [place] [address] Chloride [Moles/Vol] 103 mmol/L Normal 101-111 [facility] Comment on above: Performed By: #### 1 [id number] #### [facility] [address] [place] [address] CO2 [Moles/Vol] 29 mmol/L Normal 21-31 [facility] Comment on above: Performed By: #### 1 [id number] #### [facility] [address] [place] [address] Creatinine [Mass/Vol] 0.8 mg/dL Normal 0.5-1.3 [facility] Comment on above: Performed By: #### 1 [id number] #### [facility] [address] [place] [address] Glucose [Mass/Vol] 79 mg/dL Normal 55-199 [facility] Comment on above: Performed By: #### 1 [id number] #### [facility] [address] [place] [address] Potassium [Moles/Vol] 4.2 mmol/L Normal 3.5-5.3 [facility] Comment on above: Performed By: #### 1 [id number] #### [facility] [address] [place] [address] Sodium [Moles/Vol] 138 mmol/L Normal 135-145 [facility] Comment on above: Performed By: #### 1 [id number] #### [facility] [address] [place] [address] Urea nitrogen [Mass/Vol] 17 mg/dL Normal 5-21 [facility] Comment on above: Performed By: #### 1 [id number] #### [facility] [address] [place] [address] Anion gap [Moles/Vol] 10 mmol/L Normal 6-16 [facility] Comment on above: Performed By: #### 1 [id number], [id number], [id number] #### [facility] [address] [place] [address] BUN/Creat Ratio 21 No Units High 10-20 [facility] Comment on above: Performed By: #### 1 [id number], [id number], [id number] #### [facility] [address] [place] [address] CBC w/ Auto Diffon 4 Basophils/100 WBC (Bld) 0.9 % Normal 0.0-2.0 [facility] Comment on above: Performed By: #### 1 [id number], [id number], [id number] #### [facility] [address] [place] [address] Eosinophils/100 WBC (Bld) 2.4 % Normal 0.0-8.0 [facility] Comment on above: Performed By: #### 1 [id number], [id number], [id number] #### [facility] [address] [place] [address] Erythrocyte distribution width (RBC) [Ratio] 14.4 % High 10.9-14.2 [facility] Comment on above: Performed By: #### 1 [id number], [id number], [id number] #### [facility] [address] [place] [address] Hematocrit (Bld) [Volume fraction] 44.0 % Normal 34.0-46.0 [facility] Comment on above: Performed By: #### 1 [id number], [id number], [id number] #### [facility] [address] [place] [address] Hemoglobin (Bld) [Mass/Vol] 14.3 g/dL Normal 12.0-16.0 [facility] Comment on above: Performed By: #### 1 [id number], [id number], [id number] #### [facility] [address] [place] [address] Lymphocytes/100 WBC (Bld) 27.6 % Normal 14.0-50.0 [facility] Comment on above: Performed By: #### 1 [id number], [id number], [id number] #### [facility] [address] [place] [address] MCH (RBC) [Entitic mass] 29.5 pg Normal 27.0-34.0 [facility] Comment on above: Performed By: #### 1 [id number], [id number], [id number] #### [facility] [address] [place] [address] MCHC (RBC) [Mass/Vol] 32.3 g/dL Normal 31.4-36.0 [facility] Comment on above: Performed By: #### 1 [id number], [id number], [id number] #### [facility] [address] [place] [address] MCV (RBC) [Entitic vol] 91.5 fL Normal 80.0-100.0 [facility] Comment on above: Performed By: #### 1 [id number], [id number], [id number] #### [facility] [address] [place] [address] Monocytes/100 WBC (Bld) 11.6 % Normal 4.0-14.0 [facility] Comment on above: Performed By: #### 1 [id number], [id number], [id number] #### [facility] [address] [place] [address] NEUTRO AUTO 57.5 % Normal 36.0-75.0 [facility] Comment on above: Performed By: #### 1 [id number], [id number], [id number] #### [facility] [address] [place] [address] Platelet mean volume (Bld) [Entitic vol] 9.7 fL Normal 6.4-10.8 [facility] Comment on above: Performed By: #### 1 [id number], [id number], [id number] #### [facility] [address] [place] [address] Basophil Absolute 0.1 E9/L Normal 0.0-0.2 [facility] Comment on above: Performed By: #### 1 [id number], [id number], [id number] #### [facility] [address] [place] [address] Eos Absolute 0.1 E9/L Normal 0.0-0.5 [facility] Comment on above: Performed By: #### 1 [id number], [id number], [id number] #### [facility] [address] [place] [address] Lymph Absolute 1.6 E9/L Normal 1.0-4.0 [facility] Comment on above: Performed By: #### 1 [id number], [id number], [id number] #### [facility] [address] [place] [address] Hudson Absolute 0.7 E9/L Normal 0.2-1.0 [facility] Comment on above: Performed By: #### 1 [id number], [id number], [id number] #### [facility] [address] [place] [address] Neutro Absolute 3.4 E9/L Normal 2.0-7.5 [facility] Comment on above: Performed By: #### 1 [id number], [id number], [id number] #### [facility] [address] [place] [address] Platelet 291.0 E9/L Normal 150.0-500.0 [facility] Comment on above: Performed By: #### 1 [id number], [id number], [id number] #### [facility] [address] [place] [address] RBC 4.8 E12/L Normal 4.3-5.9 [facility] Comment on above: Performed By: #### 1 [id number], [id number], [id number] #### [facility] [address] [place] [address] WBC 5.8 E9/L Normal 4.0-11.0 [facility] Comment on above: Performed By: #### 1 [id number], [id number], [id number] #### [facility] [address] [place] [address] CHEMISTRYOrdered By: SYSTEM SYSTEM on 08-14-2023 Anion gap [Moles/Vol] 10 mmol/L Normal 6 - 16 mEq/L [facility] Calcium [Mass/Vol] 9.8 mg/dL Normal 8.9 - 11.1 mg/dL [facility] Chloride [Moles/Vol] 103 mmol/L Normal 101 - 111 mmol/ L [facility] Chem CO2 [Moles/Vol] 29 mmol/L Normal 21 - 31 mmol/L Remis ol Chem Creatinine [Mass/Vol] 0.8 mg/dL Normal 0.5 - 1.3 mg/dL [facility] eGFR 81 mL/min/1.73 m2 Normal >=59mL/min /1.73 m2 [facility] Glucose [Mass/Vol] 79 mg/dL Normal 55 - 199 mg/dL Re misol Chem Potassium [Moles/Vol] 4.2 mmol/L Normal 3.5 - 5.3 mmol/L [facility] Sodium [Moles/Vol] 138 mmol/L Normal 135 - 145 mmol/L [facility] Urea nitrogen [Mass/Vol] 17 mg/dL Normal 5 - 21 mg/dL [facility] Urea nitrogen/Creatinine [Mass ratio] 21 mg/mg High 10 - 20 Remisol Chem [facility] BMPon 08-14-2023 [facility] AGAP 10 [facility] BUN/CREAT RATIO 21 High [facility] Interpretation and review of laboratory results Abnormal [facility] Healthcare Original Ordering Provider: CORRIE Colindres [facility] CBC W/ AUTO DIFFon Basophils (Bld) [#/Vol] 0.1 10*3/uL [facility] EOS ABSOLUTE 0.1 [facility] Interpretation and review of laboratory results Abnormal [facility] Healthcare LYMPH ABSOLUTE 1.6 [facility] MONO ABSOLUTE 0.7 [facility] NEUTRO ABSOLUTE 3.4 [facility] Platelets (Bld) [#/Vol] 291.0 10*3/uL [facility] RBC (Bld) [#/Vol] 4.8 10*6/uL [facility] WBC (Bld) [#/Vol] 5.8 10*3/uL [facility]: [facility] EGFR 81 - PINF [facility] Healthcare Order added by Discern Expert. Original Ordering Provider: CORRIE GREEN HEMATOLOGYOrdered By: SYSTEM SYSTEM on 08-14-2023 Basophil Absolute 0.1 E9/L Normal 0.0 - 0.2 E9/L Rem isol Heme Basophils/100 WBC (Bld) 0.9 % Normal 0.0 - 2.0 % Remisol Heme Eos Absolute 0.1 E9/L Normal 0.0 - 0.5 E9/L [facility] Eosinophils/100 WBC (Bld) 2.4 % Normal 0.0 - 8.0 % [facility] Erythrocyte distribution width (RBC) [Ratio] 14.4 % High 10.9 - 14.2 % [facility] Hematocrit (Bld) [Volume fraction] 44.0 % Normal 34.0 - 46.0 % [facility] Hemoglobin (Bld) [Mass/Vol] 14.3 g/dL Normal 12.0 - 16.0 gm/dL [facility] Lymph Absolute 1.6 E9/L Normal 1.0 - 4.0 E9/L Remiso l Heme Lymphocytes/100 WBC (Bld) 27.6 % Normal 14.0 - 50.0 % Rem[facility] Heme MCH (RBC) [Entitic mass] 29.5 pg Normal 27.0 - 34.0 pg Remisol Heme MCHC (RBC) [Mass/Vol] 32.3 g/dL Normal 31.4 - 36.0 gm/dL Rem[facility] Heme MCV (RBC) [Entitic vol] 91.5 fL Normal 80.0 - 100.0 fL Remisol Heme [place] Absolute 0.7 E9/L Normal 0.2 - 1.0 E9/L [facility] Heme Monocytes/100 WBC (Bld) 11.6 % Normal 4.0 - 14.0 % Rem[facility] Heme Neutro Absolute 3.4 E9/L Normal 2.0 - 7.5 E9/L Remis ol Heme Neutro Auto 57.5 % Normal 36.0 - 75.0 % Remisol He me Platelet 291.0 E9/L Normal 150.0 - 500.0 E9/L Remisol Heme Platelet mean volume (Bld) [Entitic vol] 9.7 fL Normal 6.4 - 10.8 fL Remisol Heme RBC 4.8 E12/L Normal 4.3 - 5.9 E12/L Remisol H jaye WBC 5.8 E9/L Normal 4.0 - 11.0 E9/L Remisol H jaye No Panel Informationon 08-14 [facility] Patient Educationon 08-14-19 Patient Education Orthopedics [facility] Surgery, Care After This sheet gives you information about how to care for yourself after your procedure. Your health care provider may also give you more specific instructions. If you have problems or questions, contact your health care provider. What can I expect after the procedure? After the procedure, it is common to have: ? Redness. ? Pain. ? Swelling. ? A small amount of fluid coming from your incision. Follow these instructions at home: If you have a post-operative brace, boot, or shoe: ? Wear the post-op (post-operative) brace, boot, or shoe as told by your health care provider. Remove it only as told by your health care provider. ? Loosen the brace, boot, or shoe if your toes tingle, become numb, or turn cold and blue. ? Keep the brace, boot, or shoe clean and dry. If you have a cast: ? Do not put pressure on any part of the cast until it is fully hardened. This may take several hours. ? Do not stick anything inside the cast to scratch your skin. Doing that increases your risk of infection. ? Check the skin around the cast every day. Tell your health care provider about any concerns. ? You may put lotion on dry skin around the edges of the cast. Do not put lotion on the skin underneath the cast. ? Keep the cast clean and dry. Bathing ? Do not take baths, swim, or use a hot tub until your health care provider approves. Ask your health care provider if you may take showers. ? If your brace, boot, shoe, or cast is not waterproof: ? Do not let it get wet. ? Cover it with a watertight covering when you take a bath or a shower. ? Keep your bandage (dressing) dry until your health care provider says it can be removed. Incision care ? The dressing holds your toe in the correct position. Do not change the dressing until your health care provider approves. ? Follow instructions from your health care provider about how to take care of your incision. Make sure you: ? Wash your hands with soap and water for at least 20 seconds before and after you change your dressing. If soap and water are not available, use hand ciaio lumite injector. ? Change your dressing as told by your health care provider. ? Leave stitches (sutures), skin glue, or adhesive strips in place. These skin closures may need to stay in place for 2 weeks or longer. If adhesive strip edges start to loosen and curl up, you may trim the loose edges. Do not remove adhesive strips completely unless your health care provider tells you to do that. ? Check your incision area every day for signs of infection. Check for: ? More redness, swelling, or pain. ? Blood or more fluid. ? Warmth. ? Pus or a bad smell. Managing pain, stiffness, and swelling ? If directed, put ice on the affected area. To do this: ? If you have a removable brace, boot, or shoe, remove it as told by your health care provider. ? Put ice in a plastic bag. ? Place a towel between your skin and the bag or between your cast and the bag. ? Leave the ice on for 20 minutes, 2?3 times a day. ? Remove the ice if your skin turns bright red. This is very important. If you cannot feel pain, heat, or cold, you have a greater risk of damage to the area. ? Move your toes often to reduce stiffness and swelling. ? Raise (elevate) the injured area above the level of your heart while you are sitting or lying down. Activity ? Return to your normal activities as told by your health care provider. Ask your health care provider what activities are safe for you. ? If physical therapy was prescribed, do exercises as told by your health care provider. Driving ? If you were given a sedative during the procedure, it can affect you for several hours. Do not drive or operate machinery until your health care provider says that it is safe. ? Ask your health care provider when it is safe to drive if you have a brace, boot, shoe, or cast on your foot. Safety Do not use the affected leg to support (bear) your body weight until your health care provider says that you can. Follow weight-bearing restrictions as told. Use crutches, a cane, or a walker as told by your health care provider. General instructions ? Do not use any products that contain nicotine or tobacco, such as cigarettes, e-cigarettes, and chewing tobacco. If you need help quitting, ask your health care provider. ? Take gnjy-pja-zzszspy and prescription medicines only as told by your health care provider. ? Your medicines may cause constipation. To prevent or treat constipation, you may need to: ? Drink enough fluid to keep your urine pale yellow. ? Take yquu-gsb-zavalet or prescription medicines. ? Eat foods that are high in fiber, such as beans, whole grains, and fresh fruits and vegetables. ? Limit foods that are high in fat and processed sugars, such as fried or sweet foods. ? Do not wear high heels or tight-fitting shoes, even after you heal. ? K (more content not included)... Normal [facility] Orderon 08-14-2023 Physician Order [id number] [id number] Normal [facility] eGFRon 08-14-2023 eGFR 81 mL/min/1.73 m2 Normal >=59 [facility] Comment on above: Order Comment: Order added by Discern Expert. Performed By: #### 1 [id number], [id number] ####[facility] [address] [place] [address] Nurse Consultation Noteon Nurse Consultation Note Reason for Visit Allergy inj Medications Albuterol (Eqv-ProAir HFA) 90 mcg/inh inhalation aerosol, 2 puff(s), Inhalation, QID, PRN, 3 refills albuterol 0.083% Inh Robyn 3 mL, 0.083% - 3mL dosing units, Inhalation, q6hr, PRN, 2 refills budesonide 0.5 mg/2 mL Inh Susp, 0.5 mg= 2 mL, NEB, BID, 1 refills calcium-vitamin D 200 mg-250 intl units oral tablet, 1 tab(s), Oral, BID cetirizine 10 mg Tab, 10 mg= 1 tab(s), Oral, Daily escitalopram 20 mg Tab, 20 mg= 1 tab(s), Oral, Daily, 1 refills Fish Oil 500 mg oral capsule, 1000 mg= 2 cap(s), Oral, BID Flonase 0.05 mg/inh [place], 2 spray(s), Nasal, Daily gabapentin 300 mg Cap, 300 mg= 1 cap(s), Oral, TID, 3 refills Handicapped Parking Placard, 0 hydrOXYzine hydrochloride 25 mg Tab, 25 mg= 1 tab(s), Oral, QID, PRN, 1 refills predniSONE 10 mg Tab, 1 -, Oral, As Directed Singulair 10 mg Tab, 10 mg= 1 tab(s), Oral, qPM, 1 refills Vitamin C 500 mg oral tablet, chewable, 500 mg= 1 tab(s), Chewed, Daily Vitamin D 1000 intl units Tab, 25 mcg= 1 tab(s), Oral, Daily Allergies Anaprox (Nausea) amoxicillin (Rash) codeine (Lightheaded, Nausea with Vomiting) Immunizations Vaccine Date Status Comments pneumococcal 23-valent vaccine - Not Given Postpone due to refusal pneumococcal 13-valent vaccine - Not Given Postpone due to refusal influenza virus vaccine, inactivated - Not Given Postpone due to refusal influenza virus vaccine, inactivated - Not Given Postpone due to refusal influenza virus vaccine, inactivated - Not Given Postpone due to refusal influenza virus vaccine, inactivated - Not Given Postpone due to refusal pneumococcal 23-valent vaccine - Not Given Postpone due to refusal SARS-CoV-2 (COVID-19) mRNA-1273 vaccine 06/15/2021 Recorded SARS-CoV-2 (COVID-19) mRNA-1273 vaccine 10/06/2020 Recorded 2022-11-23: 60 SARS-CoV-2 (COVID-19) mRNA-1273 vaccine 09/26/2020 Recorded SARS-CoV-2 (COVID-19) mRNA-1273 vaccine 09/08/2020 Recorded pneumococcal 23-valent vaccine 04/07/2005 Recorded Normal [facility] Nurse Consultation Noteon Nurse Consultation Note Reason for Visit Allergy injection Medications Albuterol (Eqv-ProAir HFA) 90 mcg/inh inhalation aerosol, 2 puff(s), Inhalation, QID, PRN, 3 refills albuterol 0.083% Inh Robyn 3 mL, 0.083% - 3mL dosing units, Inhalation, q6hr, PRN, 2 refills budesonide 0.5 mg/2 mL Inh Susp, 0.5 mg= 2 mL, NEB, BID, 1 refills calcium-vitamin D 200 mg-250 intl units oral tablet, 1 tab(s), Oral, BID cetirizine 10 mg Tab, 10 mg= 1 tab(s), Oral, Daily escitalopram 20 mg Tab, 20 mg= 1 tab(s), Oral, Daily, 1 refills Fish Oil 500 mg oral capsule, 1000 mg= 2 cap(s), Oral, BID Flonase 0.05 mg/inh [place], 2 spray(s), Nasal, Daily gabapentin 300 mg Cap, 300 mg= 1 cap(s), Oral, TID, 3 refills Handicapped Parking Placard, 0 hydrOXYzine hydrochloride 25 mg Tab, 25 mg= 1 tab(s), Oral, QID, PRN, 1 refills predniSONE 10 mg Tab, 1 -, Oral, As Directed Singulair 10 mg Tab, 10 mg= 1 tab(s), Oral, qPM, 1 refills Vitamin C 500 mg oral tablet, chewable, 500 mg= 1 tab(s), Chewed, Daily Vitamin D 1000 intl units Tab, 25 mcg= 1 tab(s), Oral, Daily Allergies Anaprox (Nausea) amoxicillin (Rash) codeine (Lightheaded, Nausea with Vomiting) Immunizations Vaccine Date Status Comments pneumococcal 23-valent vaccine - Not Given Postpone due to refusal pneumococcal 13-valent vaccine - Not Given Postpone due to refusal influenza virus vaccine, inactivated - Not Given Postpone due to refusal influenza virus vaccine, inactivated - Not Given Postpone due to refusal influenza virus vaccine, inactivated - Not Given Postpone due to refusal influenza virus vaccine, inactivated - Not Given Postpone due to refusal pneumococcal 23-valent vaccine - Not Given Postpone due to refusal SARS-CoV-2 (COVID-19) mRNA-1273 vaccine 06/15/2021 Recorded SARS-CoV-2 (COVID-19) mRNA-1273 vaccine 10/06/2020 Recorded 2022-11-23: 60 SARS-CoV-2 (COVID-19) mRNA-1273 vaccine 09/26/2020 Recorded SARS-CoV-2 (COVID-19) mRNA-1273 vaccine 09/08/2020 Recorded pneumococcal 23-valent vaccine 04/07/2005 Recorded [facility] Physician Orderon 08-07-2023 Physician Order [id number] [facility] Nurse Consultation Noteon Nurse Consultation Note Reason for Visit Allergy injection Medications Albuterol (Eqv-ProAir HFA) 90 mcg/inh inhalation aerosol, 2 puff(s), Inhalation, QID, PRN, 3 refills albuterol 0.083% Inh Robyn 3 mL, 0.083% - 3mL dosing units, Inhalation, q6hr, PRN, 2 refills budesonide 0.5 mg/2 mL Inh Susp, 0.5 mg= 2 mL, NEB, BID, 1 refills calcium-vitamin D 200 mg-250 intl units oral tablet, 1 tab(s), Oral, BID cetirizine 10 mg Tab, 10 mg= 1 tab(s), Oral, Daily escitalopram 20 mg Tab, 20 mg= 1 tab(s), Oral, Daily, 1 refills Fish Oil 500 mg oral capsule, 1000 mg= 2 cap(s), Oral, BID Flonase 0.05 mg/inh [place], 2 spray(s), Nasal, Daily gabapentin 300 mg Cap, 300 mg= 1 cap(s), Oral, TID, 3 refills Handicapped Parking Placard, 0 hydrOXYzine hydrochloride 25 mg Tab, 25 mg= 1 tab(s), Oral, QID, PRN, 1 refills predniSONE 10 mg Tab, 1 -, Oral, As Directed Singulair 10 mg Tab, 10 mg= 1 tab(s), Oral, qPM, 1 refills Vitamin C 500 mg oral tablet, chewable, 500 mg= 1 tab(s), Chewed, Daily Vitamin D 1000 intl units Tab, 25 mcg= 1 tab(s), Oral, Daily Allergies Anaprox (Nausea) amoxicillin (Rash) codeine (Lightheaded, Nausea with Vomiting) Immunizations Vaccine Date Status Comments pneumococcal 23-valent vaccine - Not Given Postpone due to refusal pneumococcal 13-valent vaccine - Not Given Postpone due to refusal influenza virus vaccine, inactivated - Not Given Postpone due to refusal influenza virus vaccine, inactivated - Not Given Postpone due to refusal influenza virus vaccine, inactivated - Not Given Postpone due to refusal influenza virus vaccine, inactivated - Not Given Postpone due to refusal pneumococcal 23-valent vaccine - Not Given Postpone due to refusal SARS-CoV-2 (COVID-19) mRNA-1273 vaccine 06/15/2021 Recorded SARS-CoV-2 (COVID-19) mRNA-1273 vaccine 10/06/2020 Recorded 2022-11-23: 60 SARS-CoV-2 (COVID-19) mRNA-1273 vaccine 09/26/2020 Recorded SARS-CoV-2 (COVID-19) mRNA-1273 vaccine 09/08/2020 Recorded pneumococcal 23-valent vaccine 04/07/2005 Recorded Normal [facility] Nurse Consultation Noteon Nurse Consultation Note Reason for Visit Allergy inj Medications Albuterol (Eqv-ProAir HFA) 90 mcg/inh inhalation aerosol, 2 puff(s), Inhalation, QID, PRN, 3 refills albuterol 0.083% Inh Robyn 3 mL, 0.083% - 3mL dosing units, Inhalation, q6hr, PRN, 2 refills budesonide 0.5 mg/2 mL Inh Susp, 0.5 mg= 2 mL, NEB, BID, 1 refills calcium-vitamin D 200 mg-250 intl units oral tablet, 1 tab(s), Oral, BID cetirizine 10 mg Tab, 10 mg= 1 tab(s), Oral, Daily escitalopram 20 mg Tab, 20 mg= 1 tab(s), Oral, Daily, 1 refills Fish Oil 500 mg oral capsule, 1000 mg= 2 cap(s), Oral, BID Flonase 0.05 mg/inh [place], 2 spray(s), Nasal, Daily gabapentin 300 mg Cap, 300 mg= 1 cap(s), Oral, TID, 3 refills Handicapped Parking Placard, 0 hydrOXYzine hydrochloride 25 mg Tab, 25 mg= 1 tab(s), Oral, QID, PRN, 1 refills predniSONE 10 mg Tab, 1 -, Oral, As Directed Singulair 10 mg Tab, 10 mg= 1 tab(s), Oral, qPM, 1 refills Vitamin C 500 mg oral tablet, chewable, 500 mg= 1 tab(s), Chewed, Daily Vitamin D 1000 intl units Tab, 25 mcg= 1 tab(s), Oral, Daily Allergies Anaprox (Nausea) amoxicillin (Rash) codeine (Lightheaded, Nausea with Vomiting) Immunizations Vaccine Date Status Comments pneumococcal 23-valent vaccine - Not Given Postpone due to refusal pneumococcal 13-valent vaccine - Not Given Postpone due to refusal influenza virus vaccine, inactivated - Not Given Postpone due to refusal influenza virus vaccine, inactivated - Not Given Postpone due to refusal influenza virus vaccine, inactivated - Not Given Postpone due to refusal influenza virus vaccine, inactivated - Not Given Postpone due to refusal pneumococcal 23-valent vaccine - Not Given Postpone due to refusal SARS-CoV-2 (COVID-19) mRNA-1273 vaccine 06/15/2021 Recorded SARS-CoV-2 (COVID-19) mRNA-1273 vaccine 10/06/2020 Recorded 2022-11-23: 60 SARS-CoV-2 (COVID-19) mRNA-1273 vaccine 09/26/2020 Recorded SARS-CoV-2 (COVID-19) mRNA-1273 vaccine 09/08/2020 Recorded pneumococcal 23-valent vaccine 04/07/2005 Recorded Normal [facility] Medicine Office/Clini c Noteon 07-10-2023 Family Medicine Office/Clinic Note Chief Complaint c/o cough, sinus congestion HPI Staff C/O: Onset: Monday Location: Symptoms: cough, rattle in chest, nasal congestion, ear congestion OTC: breathing treatments and inhaler History of Present Illness I have reviewed staff HPI and it is correct. Angela Sims is a 68-year-old female here today for concerns regarding acute chest congestion with cough, and ear and nasal congestion. She suspects that her current symptoms are a manifestation of her asthma. These symptoms, which include fever and chills, initiated last , 06/29/2023 or 06/30/2023. She denies experiencing any nausea, vomiting, or diarrhea. Her inhaler usage has increased to 3 to 4 times daily. She recently started using her nebulizer every 6 hours after a period of non-use, and it is effective. She is currently experiencing a coughing episode as it is time for her nebulization. Her current medication includes a decongestant, Mucinex, and Singulair, which she takes daily. It has been a significant amount of time since her last asthma flare-up. She is experiencing otalgia and had a severe headache recently, which also affected her chest. She occasionally experiences dizziness and dyspnea. Her has a history of bronchitis and heart issues. Her food and fluid intake has been normal over the past couple of days, with an emphasis on hydration. Her ears, which feel pressurized, are causing her the most discomfort. Her coughing wakes her up, at which point she goes downstairs for nebulization. She experienced tremors after taking budesonide. Albuterol is her rescue inhaler. Patient has no other questions or concerns at this time. Review of Systems All negative except as noted in the HPI. Physical Exam Vitals & Measurements T: 36.7 ?C(Temporal Artery) HR: 87(Peripheral) RR: 18 BP: 126/78 SpO2: 95% HT: 67 in HT: 170 cm WT: 98.6 kg WT: 216.92 lb BMI: 34.12 General: Obese female appears mildly ill, well hydrated, no acute distress. Head: Normocephalic atraumatic? Eyes: EOMI, sclera clear? Ears: Bilateral tympanic membranes pearly [place]ada with good cone of light? Nose: No deformity, discharge, inflammation or lesion? Mouth: Mucous membranes moist. Normal oropharynx, posterior pharynx without lesion or exudate. Tongue normal.? Neck: No cervical lymphadenopathy? Lungs: Wheezing throughout with some rhonchi present as well. Cardio: Regular rate and rhythm with no murmur? Mental status: Alert and oriented x3. Appropriate mood and affect. Assessment/Plan 1. Asthma, moderate persistent (J45.40: Moderate persistent asthma, uncomplicated) She is suffering from asthma exacerbation with upper respiratory/lower respiratory infection. prescription for azithromycin was sent to the local pharmacy. Advised patient to follow instructions on the medication packet for dosage instructions. prescription for prednisone sent to local pharmacy for taper. Advised patient to take as prescribed and with food to avoid gastrointestinal upset. A refill for albuterol inhaler was sent to the local pharmacy. Advised patient to contact the office on Monday with an update on her symptoms. If worsening shortness of breath, fever, nausea, vomiting, etcetera, begin, she needs to proceed to the nearest emergency department for evaluation. 2. BMI 34.0-34.9,adult (Z68.34: Body mass index [BMI] 34.0-34.9, adult) The standard range for ages 18 and older is >=18.5 and < 25 kg/m2. Your BMI today was above this range, this falls in the overweight to obese category and there are medical benefits to weight loss. We can offer counselling, referral, and/or medical support in addressing this problem. Your BMI and weight management will be followed at subsequent visits. 3. Obesity due to excess calories (E66.09: Other obesity due to excess calories) See above. Portions of this record may have been created with voice recognition artificial intelligence software, specifically [employer], [email or web address] and or [employer]. Substitutions may have occurred due to the inherent limitations of voice recognition and artificial intelligence software. Patient verbalized understanding and is agreeable to plan and course of treatment. This documentation was completed by voice-activated device and software. Inaccuracies compared to the original dictation of this provider are possible although this document has been overread and corrected. This note has been generated by Shahram DOSHI and edited by Adarsh Chicas/ Adia Gao, Quality Device Engineer. Follow-up With When Contact Information Guerita Knapp PA-C Only if needed [address] [place] [phone] Additional Instructions: Only if needed Patient Education Budget-Friendly Healthy Eating Problem List/Past Medical History Ongoing Abnormal ECG Allergic rhinitis, seasonal Asthma, moderate persistent B12 nutritional deficiency BMI 34.0-34.9,adult Diastolic dysfunctio (more content not included)... Normal [facility] Comment on above: Result Comment: Elec tronically Signed By: Guerita Knapp PA-C\.br\Date and Time Signed: 07/10/23 23:28 EST\.br\Electronically Co-Signed By: Eben Lopez\.br\Date and Time Co-Signed: 07/05/23 16:06 EST\.br\Electronically Co-Signed By: Eben Lopez\.br\Date and Time Co-Signed: 07/05/23 16:08 EST\.br\Electronically Co-Signed By: Eben Lopez\.br\Date and Time Co-Signed: 07/05/23 16:09 EST Patient Educationon 07-05-20 Patient Education Nutrition Budget-Friendly Healthy Eating There are many ways to save money at the grocery store and continue to eat healthy. You can be successful if you: ? Plan meals according to your budget. ? Make a grocery list and only purchase food according to your grocery list. ? Prepare food yourself at home. What are tips for following this plan? Reading food labels ? Compare food labels between brand name foods and the store brand. Often the nutritional value is the same, but the store brand is lower cost. ? Look for products that do not have added sugar, fat, or salt (sodium). These often cost the same but are healthier for you. Products may be labeled as: ? Sugar-free. ? Nonfat. ? Low-fat. ? Sodium-free. ? Low-sodium. ? Look for lean ground beef labeled as at least 92% lean and 8% fat. Shopping ? Buy only the items on your grocery list and go only to the areas of the store that have the items on your list. ? Use coupons only for foods and brands you normally buy. Avoid buying items you wouldn't normally buy simply because they are on sale. ? Check online and in newspapers for weekly deals. ? Buy healthy items from the bulk bins when available, such as herbs, spices, flour, pasta, nuts, and dried fruit. ? Buy fruits and vegetables that are in season. Prices are usually lower on in-season produce. ? Look at the unit nascimento on the nascimento tag. Use it to compare different brands and sizes to find out which item is the best deal. ? Choose healthy items that are often low-cost, such as carrots, potatoes, apples, bananas, and oranges. Dried or canned beans are a low-cost protein source. ? Buy in bulk and freeze extra food. Items you can buy in bulk include meats, fish, poultry, frozen fruits, and frozen vegetables. ? Avoid buying [id number]-[id number] foods, such as pre-cut fruits and vegetables and pre-made salads. ? If possible, shop around to discover where you can find the best prices. Consider other retailers such as dollar stores, larger wholesale stores, local fruit and vegetable stands, and farmers markets. ? Do not shop when you are hungry. If you shop while hungry, it may be hard to stick to your list and budget. ? Resist impulse buying. Use your grocery list as your official plan for the week. ? Buy a variety of vegetables and fruits by purchasing fresh, frozen, and canned items. ? Look at the top and bottom shelves for deals. Foods at eye level (eye level of an adult or child) are usually more expensive. ? Be efficient with your time when shopping. The more time you spend at the store, the more money you are likely to spend. ? To save money when choosing more expensive foods like meats and dairy: ? Choose cheaper cuts of meat, such as bone-in chicken thighs and drumsticks instead of skinless and boneless chicken. When you are ready to prepare the chicken, you can remove the skin yourself to make it healthier. ? Choose lean meats like chicken or turkey instead of beef. ? Choose canned seafood, such as tuna, salmon, or sardines. ? Buy eggs as a low-cost source of protein. ? Buy dried beans and peas, such as lentils, split peas, or kidney beans instead of meats. Dried beans and peas are a good alternative source of protein. ? Buy the larger tubs of yogurt instead of individual-sized containers. ? Choose water instead of sodas and other sweetened beverages. ? Avoid buying chips, cookies, and other junk food. These items are usually expensive and not healthy. Cooking ? Make extra food and freeze the extras in meal-sized containers or in individual portions for fast meals and snacks. ? Pre-cook on days when you have extra time to prepare meals in advance. You can keep these meals in the fridge or freezer and reheat for a quick meal. ? When you come home from the grocery store, wash, peel, and cut fruits and vegetables so they are ready to use and eat. This will help reduce food waste. Meal planning ? Do not eat out or get fast food. Prepare food at home. ? Make a grocery list and make sure to bring it with you to the store. If you have a smart phone, you could use your phone to create your shopping list. ? Plan meals and snacks according to a grocery list and budget you create. ? Use leftovers in your meal plan for the week. ? Look for recipes where you can cook once and make enough food for two meals. ? Prepare budget-friendly types of meals like stews, casseroles, and stir-wright dishes. ? Try some meatless meals or try no cook meals like salads. ? Make sure that half your plate is filled with fruits or vegetables. Choose from fresh, frozen, or canned fruits and vegetables. If eating canned, remember to rinse them before eating. This will remove any excess salt added for packaging. Summary ? Eating healthy on a budget is possible if you plan your meals according to your budget, purchase according to your budget and grocery list, and prepare food yourself. ? Tips for buyi (more content not included)... Normal [facility] Ambulatory Visit Summaryon 1 08-27-2022 Ambulatory Visit Summary ANGELA ALONZO :1955 Visit Date:06/26/2023 Ambulatory Visit Instructions Your Diagnosis Perennial allergic rhinitis Your Care Team Attending Physician - RITU HALL, Vikram Primary Care Physician - RITU HALL FAAFP, Esperanza Carmichael This Is Your Medications List Misc Prescription (Handicapped Parking Placard) albuterol (Albuterol (Eqv-ProAir HFA) 90 mcg/inh inhalation aerosol) albuterol (albuterol 0.083% Inh Robyn 3 mL) ascorbic acid (Vitamin C 500 mg oral tablet, chewable) budesonide (budesonide 0.5 mg/2 mL Inh Susp) calcium-vitamin D (calcium-vitamin D 200 mg-250 intl units oral tablet) cetirizine (cetirizine 10 mg Tab) cholecalciferol (Vitamin D 1000 intl units Tab) escitalopram (escitalopram 20 mg Tab) fluticasone nasal (Flonase 0.05 mg/inh [place]) gabapentin (gabapentin 300 mg Cap) hydrOXYzine (hydrOXYzine hydrochloride 25 mg Tab) montelukast (Singulair 10 mg Tab) omega-3 polyunsaturated fatty acids (Fish Oil 500 mg oral capsule) Procedures Performed Colonoscopy (07/07/2022), Total knee arthroplasty (01/03/2022), Cardiac catheterization, left heart (12/17/2021), left needle localized breast biopsy (08/22/2012), Breast biopsy and related procedures (01/2002), HEEL SPUR REMOVAL. What to do next Scheduled Follow-Up Appointments Monday 10:40 AM EST Where: [facility] [place] [facility] [address] [place] [address]- \.br\ Medications\.br\ What How Much When Instructions\.br\ Unchanged albuterol (Albuterol (Eqv-ProAir HFA) 90 mcg/ inh inhalation aerosol) 2 Puffs Inhalation 4 times a day as needed for Wheezing\.br\ Unchanged albuterol (albuterol 0.083% Inh Robyn 3 mL) 0.083% - 3mL dosing units Inhalation Every 6 hours as needed for Wheezing\.br\ Unchanged ascorbic acid (Vitamin C 500 mg oral tablet, chewable) 1 Tablets Chewed Every day\.br\ Unchanged budesonide (budesonide 0.5 mg/ 2 mL Inh Susp) 2 Milliliter Nebulized inhalation (aerosol) 2 times a day\.br\ Unchanged calcium-vitamin D (calcium-vitamin D 200 mg-250 intl units oral tablet) 1 Tablets By Mouth 2 times a day\.br\ Unchanged cetirizine (cetirizine 10 mg Tab) 1 Tablets By Mouth Every day\.br\ Unchanged cholecalciferol (Vitamin D 1000 intl units Tab) 1 Tablets By Mouth Every day\.br\ Unchanged escitalopram (escitalopram 20 mg Tab) 1 Tablets By Mouth Every day\.br\ Unchanged fluticasone nasal (Flonase 0.05 mg/ inh [place]) 2 Sprays Nasal Inhalation Every day each nostril \.br\ Unchanged gabapentin (gabapentin 300 mg Cap) 1 Capsules By Mouth 3 times a day\.br\ Unchanged hydrOXYzine (hydrOXYzine hydrochloride 25 mg Tab) 1 Tablets By Mouth 4 times a day as needed for as needed for itching\.br\ Unchanged Misc Prescription (Handicapped Parking Placard) 0 5 year duration \.br\ Unchanged montelukast (Singulair 10 mg Tab) 1 Tablets By Mouth Once a day (in the evening)\.br\ Unchanged omega-3 polyunsaturated fatty acids (Fish Oil 500 mg oral capsule) 2 Capsules By Mouth 2 times a day\.br\ Medications and Immunizations Administered\.br\ Given\.br\ Patient Specific Meds, 5 mL, SubCutaneous. For: Perennial allergic rhinitis\.br\ Allergies\.br\ Anaprox (Nausea)\.br\ amoxicillin (Rash)\.br\ codeine (Lightheaded, Nausea with Vomiting)\.br\ Problems\.br\ Ongoing - Any problem that you are currently receiving treatment for.\.br\ Abnormal ECG\.br\ Allergic rhinitis, seasonal\.br\ Asthma, moderate persistent\.br\ B12 nutritional deficiency\.br\ BMI 35.0-35.9,adult\. br\ Diastolic dysfunction without heart failure\.br\ External hemorrhoids\.br\ Family history of colon cancer\.br\ Hyperlipemia, mixed\.br\ Influenza vaccination declined\.br\ Moderate recurrent major depression\.br\ Obesity due to excess calories\.br\ Onychomycosis of left great toe\.br\ Other insomnia\.br\ Perennial allergic rhinitis\.br\ Right foot pain\.br\ Sensory peripheral neuropathy\.br\ Historical - Any problem that you are no longer receiving treatment for.\.br\ Artificial menopause\.br\ Atrophic vaginitis\.br\ Breast cancer screening by mammogram\.br\ Colon cancer screening\.br\ COVID-19 vaccine series started\.br\ Knee pain\.br\ Lumbar back pain\.br\ Menopausal syndrome\.br\ Osteoporosis of lumbar spine\.br\ Patient Survey\.br\ You may receive a survey via text or e-mail asking about your office visit. Please share your experience with us by completing your survey. We appreciate your feedback and thank you for choosing us for your care.\.br\ \.br\ [facility] Nurse Consultation Noteon Nurse Consultation Note Reason for Visit Allergy injection Medications Albuterol (Eqv-ProAir HFA) 90 mcg/inh inhalation aerosol, 2 puff(s), Inhalation, QID, PRN, 2 refills albuterol 0.083% Inh Robyn 3 mL, 0.083% - 3mL dosing units, Inhalation, q6hr, PRN, 2 refills budesonide 0.5 mg/2 mL Inh Susp, 0.5 mg= 2 mL, NEB, BID, 1 refills calcium-vitamin D 200 mg-250 intl units oral tablet, 1 tab(s), Oral, BID cetirizine 10 mg Tab, 10 mg= 1 tab(s), Oral, Daily escitalopram 20 mg Tab, 20 mg= 1 tab(s), Oral, Daily, 1 refills Fish Oil 500 mg oral capsule, 1000 mg= 2 cap(s), Oral, BID Flonase 0.05 mg/inh [place], 2 spray(s), Nasal, Daily gabapentin 300 mg Cap, 300 mg= 1 cap(s), Oral, TID, 3 refills, Not taking Handicapped Parking Placard, 0 hydrOXYzine hydrochloride 25 mg Tab, 25 mg= 1 tab(s), Oral, QID, PRN, 1 refills Singulair 10 mg Tab, 10 mg= 1 tab(s), Oral, qPM, 1 refills Vitamin C 500 mg oral tablet, chewable, 500 mg= 1 tab(s), Chewed, Daily Vitamin D 1000 intl units Tab, 25 mcg= 1 tab(s), Oral, Daily Allergies Anaprox (Nausea) amoxicillin (Rash) codeine (Lightheaded, Nausea with Vomiting) Immunizations Vaccine Date Status Comments pneumococcal 23-valent vaccine - Not Given Postpone due to refusal pneumococcal 13-valent vaccine - Not Given Postpone due to refusal influenza virus vaccine, inactivated - Not Given Postpone due to refusal influenza virus vaccine, inactivated - Not Given Postpone due to refusal influenza virus vaccine, inactivated - Not Given Postpone due to refusal influenza virus vaccine, inactivated - Not Given Postpone due to refusal pneumococcal 23-valent vaccine - Not Given Postpone due to refusal SARS-CoV-2 (COVID-19) mRNA-1273 vaccine 06/15/2021 Recorded SARS-CoV-2 (COVID-19) mRNA-1273 vaccine 10/06/2020 Recorded 2022-11-23: 60 SARS-CoV-2 (COVID-19) mRNA-1273 vaccine 09/26/2020 Recorded SARS-CoV-2 (COVID-19) mRNA-1273 vaccine 09/08/2020 Recorded pneumococcal 23-valent vaccine 04/07/2005 Recorded Normal [facility] Nurse Consultation Noteon Nurse Consultation Note Reason for Visit Allergy injectiion Medications Albuterol (Eqv-ProAir HFA) 90 mcg/inh inhalation aerosol, 2 puff(s), Inhalation, QID, PRN, 2 refills albuterol 0.083% Inh Robyn 3 mL, 0.083% - 3mL dosing units, Inhalation, q6hr, PRN, 2 refills budesonide 0.5 mg/2 mL Inh Susp, 0.5 mg= 2 mL, NEB, BID, 1 refills calcium-vitamin D 200 mg-250 intl units oral tablet, 1 tab(s), Oral, BID cetirizine 10 mg Tab, 10 mg= 1 tab(s), Oral, Daily escitalopram 20 mg Tab, 20 mg= 1 tab(s), Oral, Daily, 1 refills Fish Oil 500 mg oral capsule, 1000 mg= 2 cap(s), Oral, BID Flonase 0.05 mg/inh [place], 2 spray(s), Nasal, Daily gabapentin 300 mg Cap, 300 mg= 1 cap(s), Oral, TID, 3 refills, Not taking Handicapped Parking Placard, 0 hydrOXYzine hydrochloride 25 mg Tab, 25 mg= 1 tab(s), Oral, QID, PRN, 1 refills Singulair 10 mg Tab, 10 mg= 1 tab(s), Oral, qPM, 1 refills Vitamin C 500 mg oral tablet, chewable, 500 mg= 1 tab(s), Chewed, Daily Vitamin D 1000 intl units Tab, 25 mcg= 1 tab(s), Oral, Daily Allergies Anaprox (Nausea) amoxicillin (Rash) codeine (Lightheaded, Nausea with Vomiting) Immunizations Vaccine Date Status Comments pneumococcal 23-valent vaccine - Not Given Postpone due to refusal pneumococcal 13-valent vaccine - Not Given Postpone due to refusal influenza virus vaccine, inactivated - Not Given Postpone due to refusal influenza virus vaccine, inactivated - Not Given Postpone due to refusal influenza virus vaccine, inactivated - Not Given Postpone due to refusal influenza virus vaccine, inactivated - Not Given Postpone due to refusal pneumococcal 23-valent vaccine - Not Given Postpone due to refusal SARS-CoV-2 (COVID-19) mRNA-1273 vaccine 06/15/2021 Recorded SARS-CoV-2 (COVID-19) mRNA-1273 vaccine 10/06/2020 Recorded 2022-11-23: 60 SARS-CoV-2 (COVID-19) mRNA-1273 vaccine 09/26/2020 Recorded SARS-CoV-2 (COVID-19) mRNA-1273 vaccine 09/08/2020 Recorded pneumococcal 23-valent vaccine 04/07/2005 Recorded Normal [facility] Nurse Consultation Noteon Nurse Consultation Note Reason for Visit alllergy injection Medications Albuterol (Eqv-ProAir HFA) 90 mcg/inh inhalation aerosol, 2 puff(s), Inhalation, QID, PRN, 2 refills albuterol 0.083% Inh Robyn 3 mL, 0.083% - 3mL dosing units, Inhalation, q6hr, PRN, 2 refills budesonide 0.5 mg/2 mL Inh Susp, 0.5 mg= 2 mL, NEB, BID, 1 refills calcium-vitamin D 200 mg-250 intl units oral tablet, 1 tab(s), Oral, BID cetirizine 10 mg Tab, 10 mg= 1 tab(s), Oral, Daily escitalopram 20 mg Tab, 20 mg= 1 tab(s), Oral, Daily, 1 refills Fish Oil 500 mg oral capsule, 1000 mg= 2 cap(s), Oral, BID Flonase 0.05 mg/inh [place], 2 spray(s), Nasal, Daily gabapentin 300 mg Cap, 300 mg= 1 cap(s), Oral, TID, 3 refills, Not taking Handicapped Parking Placard, 0 hydrOXYzine hydrochloride 25 mg Tab, 25 mg= 1 tab(s), Oral, QID, PRN, 1 refills Singulair 10 mg Tab, 10 mg= 1 tab(s), Oral, qPM, 1 refills Vitamin C 500 mg oral tablet, chewable, 500 mg= 1 tab(s), Chewed, Daily Vitamin D 1000 intl units Tab, 25 mcg= 1 tab(s), Oral, Daily Allergies Anaprox (Nausea) amoxicillin (Rash) codeine (Lightheaded, Nausea with Vomiting) Immunizations Vaccine Date Status Comments pneumococcal 23-valent vaccine - Not Given Postpone due to refusal pneumococcal 13-valent vaccine - Not Given Postpone due to refusal influenza virus vaccine, inactivated - Not Given Postpone due to refusal influenza virus vaccine, inactivated - Not Given Postpone due to refusal influenza virus vaccine, inactivated - Not Given Postpone due to refusal influenza virus vaccine, inactivated - Not Given Postpone due to refusal pneumococcal 23-valent vaccine - Not Given Postpone due to refusal SARS-CoV-2 (COVID-19) mRNA-1273 vaccine 06/15/2021 Recorded SARS-CoV-2 (COVID-19) mRNA-1273 vaccine 10/06/2020 Recorded 2022-11-23: 60 SARS-CoV-2 (COVID-19) mRNA-1273 vaccine 09/26/2020 Recorded SARS-CoV-2 (COVID-19) mRNA-1273 vaccine 09/08/2020 Recorded pneumococcal 23-valent vaccine 04/07/2005 Recorded Normal [facility] Nurse Consultation Noteon Nurse Consultation Note Reason for Visit Allergy injection Medications Albuterol (Eqv-ProAir HFA) 90 mcg/inh inhalation aerosol, 2 puff(s), Inhalation, QID, PRN, 2 refills albuterol 0.083% Inh Robyn 3 mL, 0.083% - 3mL dosing units, Inhalation, q6hr, PRN, 2 refills budesonide 0.5 mg/2 mL Inh Susp, 0.5 mg= 2 mL, NEB, BID, 1 refills calcium-vitamin D 200 mg-250 intl units oral tablet, 1 tab(s), Oral, BID cetirizine 10 mg Tab, 10 mg= 1 tab(s), Oral, Daily escitalopram 20 mg Tab, 20 mg= 1 tab(s), Oral, Daily, 1 refills Fish Oil 500 mg oral capsule, 1000 mg= 2 cap(s), Oral, BID Flonase 0.05 mg/inh [place], 2 spray(s), Nasal, Daily gabapentin 300 mg Cap, 300 mg= 1 cap(s), Oral, TID, 3 refills, Not taking Handicapped Parking Placard, 0 hydrOXYzine hydrochloride 25 mg Tab, 25 mg= 1 tab(s), Oral, QID, PRN, 1 refills Singulair 10 mg Tab, 10 mg= 1 tab(s), Oral, qPM, 1 refills Vitamin C 500 mg oral tablet, chewable, 500 mg= 1 tab(s), Chewed, Daily Vitamin D 1000 intl units Tab, 25 mcg= 1 tab(s), Oral, Daily Allergies Anaprox (Nausea) amoxicillin (Rash) codeine (Lightheaded, Nausea with Vomiting) Immunizations Vaccine Date Status Comments pneumococcal 23-valent vaccine - Not Given Postpone due to refusal pneumococcal 13-valent vaccine - Not Given Postpone due to refusal influenza virus vaccine, inactivated - Not Given Postpone due to refusal influenza virus vaccine, inactivated - Not Given Postpone due to refusal influenza virus vaccine, inactivated - Not Given Postpone due to refusal influenza virus vaccine, inactivated - Not Given Postpone due to refusal pneumococcal 23-valent vaccine - Not Given Postpone due to refusal SARS-CoV-2 (COVID-19) mRNA-1273 vaccine 06/15/2021 Recorded SARS-CoV-2 (COVID-19) mRNA-1273 vaccine 10/06/2020 Recorded 2022-11-23: 60 SARS-CoV-2 (COVID-19) mRNA-1273 vaccine 09/26/2020 Recorded SARS-CoV-2 (COVID-19) mRNA-1273 vaccine 09/08/2020 Recorded pneumococcal 23-valent vaccine 04/07/2005 Recorded [facility] Nurse Consultation Noteon Nurse Consultation Note Reason for Visit Allergy injection Assessment/Plan 1. Allergic rhinitis, seasonal (J30.2: Other seasonal allergic rhinitis) Medications Albuterol (Eqv-ProAir HFA) 90 mcg/inh inhalation aerosol, 2 puff(s), Inhalation, QID, PRN, 2 refills albuterol 0.083% Inh Robyn 3 mL, 0.083% - 3mL dosing units, Inhalation, q6hr, PRN, 2 refills budesonide 0.5 mg/2 mL Inh Susp, 0.5 mg= 2 mL, NEB, BID, 1 refills calcium-vitamin D 200 mg-250 intl units oral tablet, 1 tab(s), Oral, BID cetirizine 10 mg Tab, 10 mg= 1 tab(s), Oral, Daily escitalopram 20 mg Tab, 20 mg= 1 tab(s), Oral, Daily, 1 refills Fish Oil 500 mg oral capsule, 1000 mg= 2 cap(s), Oral, BID Flonase 0.05 mg/inh [place], 2 spray(s), Nasal, Daily gabapentin 300 mg Cap, 300 mg= 1 cap(s), Oral, TID, 3 refills, Not taking Handicapped Parking Placard, 0 hydrOXYzine hydrochloride 25 mg Tab, 25 mg= 1 tab(s), Oral, QID, PRN, 1 refills Singulair 10 mg Tab, 10 mg= 1 tab(s), Oral, qPM, 1 refills Vitamin C 500 mg oral tablet, chewable, 500 mg= 1 tab(s), Chewed, Daily Vitamin D 1000 intl units Tab, 25 mcg= 1 tab(s), Oral, Daily Allergies Anaprox (Nausea) amoxicillin (Rash) codeine (Lightheaded, Nausea with Vomiting) Immunizations Vaccine Date Status Comments pneumococcal 23-valent vaccine - Not Given Postpone due to refusal pneumococcal 13-valent vaccine - Not Given Postpone due to refusal influenza virus vaccine, inactivated - Not Given Postpone due to refusal influenza virus vaccine, inactivated - Not Given Postpone due to refusal influenza virus vaccine, inactivated - Not Given Postpone due to refusal influenza virus vaccine, inactivated - Not Given Postpone due to refusal pneumococcal 23-valent vaccine - Not Given Postpone due to refusal SARS-CoV-2 (COVID-19) mRNA-1273 vaccine 06/15/2021 Recorded SARS-CoV-2 (COVID-19) mRNA-1273 vaccine 10/06/2020 Recorded 2022-11-23: 60 SARS-CoV-2 (COVID-19) mRNA-1273 vaccine 09/26/2020 Recorded SARS-CoV-2 (COVID-19) mRNA-1273 vaccine 09/08/2020 Recorded pneumococcal 23-valent vaccine 04/07/2005 Recorded [facility] Nurse Consultation Noteon Nurse Consultation Note Reason for Visit Allergy injection Medications Albuterol (Eqv-ProAir HFA) 90 mcg/inh inhalation aerosol, 2 puff(s), Inhalation, QID, PRN, 2 refills albuterol 0.083% Inh Robyn 3 mL, 0.083% - 3mL dosing units, Inhalation, q6hr, PRN, 2 refills budesonide 0.5 mg/2 mL Inh Susp, 0.5 mg= 2 mL, NEB, BID, 1 refills calcium-vitamin D 200 mg-250 intl units oral tablet, 1 tab(s), Oral, BID cetirizine 10 mg Tab, 10 mg= 1 tab(s), Oral, Daily escitalopram 20 mg Tab, 20 mg= 1 tab(s), Oral, Daily, 1 refills Fish Oil 500 mg oral capsule, 1000 mg= 2 cap(s), Oral, BID Flonase 0.05 mg/inh [place], 2 spray(s), Nasal, Daily gabapentin 300 mg Cap, 300 mg= 1 cap(s), Oral, TID, 3 refills, Not taking Handicapped Parking Placard, 0 hydrOXYzine hydrochloride 25 mg Tab, 25 mg= 1 tab(s), Oral, QID, PRN, 1 refills Singulair 10 mg Tab, 10 mg= 1 tab(s), Oral, qPM, 1 refills Vitamin C 500 mg oral tablet, chewable, 500 mg= 1 tab(s), Chewed, Daily Vitamin D 1000 intl units Tab, 25 mcg= 1 tab(s), Oral, Daily Allergies Anaprox (Nausea) amoxicillin (Rash) codeine (Lightheaded, Nausea with Vomiting) Immunizations Vaccine Date Status Comments pneumococcal 23-valent vaccine - Not Given Postpone due to refusal pneumococcal 13-valent vaccine - Not Given Postpone due to refusal influenza virus vaccine, inactivated - Not Given Postpone due to refusal influenza virus vaccine, inactivated - Not Given Postpone due to refusal influenza virus vaccine, inactivated - Not Given Postpone due to refusal influenza virus vaccine, inactivated - Not Given Postpone due to refusal pneumococcal 23-valent vaccine - Not Given Postpone due to refusal SARS-CoV-2 (COVID-19) mRNA-1273 vaccine 06/15/2021 Recorded SARS-CoV-2 (COVID-19) mRNA-1273 vaccine 10/06/2020 Recorded 2022-11-23: 60 SARS-CoV-2 (COVID-19) mRNA-1273 vaccine 09/26/2020 Recorded SARS-CoV-2 (COVID-19) mRNA-1273 vaccine 09/08/2020 Recorded pneumococcal 23-valent vaccine 04/07/2005 Recorded [facility] Consultation Noteon 05-11-20 Consultation Note [id number] #[id number] [facility] Ambulatory Visit Summaryon 1 07-10-2022 Ambulatory Visit Summary ANGELA ALONZO :1955 Visit Date:05/10/2023 Ambulatory Visit Instructions Your Diagnosis Annual visit for general adult medical examination without abnormal findings Asthma, moderate persistent Moderate recurrent major depression Other insomnia Sensory peripheral neuropathy Hyperlipemia, mixed Vaccine refused by patient BMI 34.0-34.9,adult Obesity due to excess calories Your Care Team Attending Physician - Esperanza CHANEY MD, FAAFP Primary Care Physician - RITU HALL FAAFP, Esperanza Carmichael This Is Your Medications List Misc Prescription (Handicapped Parking Placard) albuterol (Albuterol (Eqv-ProAir HFA) 90 mcg/inh inhalation aerosol) albuterol (albuterol 0.083% Inh Robyn 3 mL) ascorbic acid (Vitamin C 500 mg oral tablet, chewable) budesonide (budesonide 0.5 mg/2 mL Inh Susp) calcium-vitamin D (calcium-vitamin D 200 mg-250 intl units oral tablet) cetirizine (cetirizine 10 mg Tab) cholecalciferol (Vitamin D 1000 intl units Tab) escitalopram (escitalopram 20 mg Tab) fluticasone nasal (Flonase 0.05 mg/inh [place]) gabapentin (gabapentin 300 mg Cap) hydrOXYzine (hydrOXYzine hydrochloride 25 mg Tab) montelukast (Singulair 10 mg Tab) omega-3 polyunsaturated fatty acids (Fish Oil 500 mg oral capsule) Procedures Performed Colonoscopy (07/07/2022), Total knee arthroplasty (01/03/2022), Cardiac catheterization, left heart (12/17/2021), left needle localized breast biopsy (08/22/2012), Breast biopsy and related procedures (01/2002), HEEL SPUR REMOVAL. Discharge Vitals Heart Rate (Peripheral) 78 Blood Pressure 122/76 Height 170.18 cm Height 67 in Weight 100.5 kg Weight 221.1 lb BMI 34.7 What to do next Scheduled Follow-Up Appointments Monday 10:40 AM EST Where: [facility] Medicine [place] [id number]- \.br\ Medications\.br\ What How Much When Instructions\.br\ Unchanged albuterol (Albuterol (Eqv-ProAir HFA) 90 mcg/ inh inhalation aerosol) 2 Puffs Inhalation 4 times a day as needed for Wheezing\.br\ Unchanged albuterol (albuterol 0.083% Inh Robyn 3 mL) 0.083% - 3mL dosing units Inhalation Every 6 hours as needed for Wheezing\.br\ Unchanged ascorbic acid (Vitamin C 500 mg oral tablet, chewable) 1 Tablets Chewed Every day\.br\ Unchanged budesonide (budesonide 0.5 mg/ 2 mL Inh Susp) 2 Milliliter Nebulized inhalation (aerosol) 2 times a day\.br\ Unchanged calcium-vitamin D (calcium-vitamin D 200 mg-250 intl units oral tablet) 1 Tablets By Mouth 2 times a day\.br\ Unchanged cetirizine (cetirizine 10 mg Tab) 1 Tablets By Mouth Every day\.br\ Unchanged cholecalciferol (Vitamin D 1000 intl units Tab) 1 Tablets By Mouth Every day\.br\ Unchanged escitalopram (escitalopram 20 mg Tab) 1 Tablets By Mouth Every day\.br\ Unchanged fluticasone nasal (Flonase 0.05 mg/ inh [place]) 2 Sprays Nasal Inhalation Every day each nostril \.br\ Unchanged gabapentin (gabapentin 300 mg Cap) 1 Capsules By Mouth 3 times a day\.br\ Unchanged hydrOXYzine (hydrOXYzine hydrochloride 25 mg Tab) 1 Tablets By Mouth 4 times a day as needed for as needed for itching\.br\ Unchanged Misc Prescription (Handicapped Parking Placard) 0 5 year duration \.br\ Unchanged montelukast (Singulair 10 mg Tab) 1 Tablets By Mouth Once a day (in the evening)\.br\ Unchanged omega-3 polyunsaturated fatty acids (Fish Oil 500 mg oral capsule) 2 Capsules By Mouth 2 times a day\.br\ Medications and Immunizations Administered\.br\ Not Given\.br\ influenza virus vaccine, inactivated, Postpone due to refusal\.br\ pneumococcal 13-valent vaccine, Postpone due to refusal\.br\ pneumococcal 23-valent vaccine, Postpone due to refusal\.br\ Allergies\.br\ Anaprox (Nausea)\.br\ amoxicillin (Rash)\.br\ codeine (Lightheaded, Nausea with Vomiting)\.br\ Problems\.br\ Ongoing - Any problem that you are currently receiving treatment for.\.br\ Abnormal ECG\.br\ Allergic rhinitis, seasonal\.br\ Asthma, moderate persistent\.br\ B12 nutritional deficiency\.br\ BMI 35.0-35.9,adult\. br\ Diastolic dysfunction without heart failure\.br\ External hemorrhoids\.br\ Family history of colon cancer\.br\ Hyperlipemia, mixed\.br\ Influenza vaccination declined\.br\ Moderate recurrent major depression\.br\ Obesity due to excess calories\.br\ Onychomycosis of left great toe\.br\ Other insomnia\.br\ Perennial allergic rhinitis\.br\ Right foot pain\.br\ Sensory peripheral neuropathy\.br\ Historical - Any problem that you are no longer receiving treatment for.\.br\ Artificial menopause\.br\ Atrophic vaginitis\.br\ Breast cancer screening by mammogram\.br\ Colon cancer screening\.br\ COVID-19 vaccine series started\.br\ Knee pain\.br\ Lumbar back pain\.br\ Menopausal syndrome\.br\ Osteoporosis of lumbar spine\.br\ Patient Survey\.br\ You may receive a survey via text or e-mail asking about your office visit. Please share your experience with us by completing your survey. We appreciate your feedback and thank you for choosing us for your care.\.br\ Education Materials\.br\ BMI for Adults\.br\ What is BMI?\.br\ Body mass index (BMI) is a number that is calculated from a person's weight and height. BMI can help estimate how much of a person's weight is composed of fat. BMI does not measure body fat directly. Rather, it is an alternative to procedures that directly measure body fat, which can be difficult and expensive.\.br\ BMI can help identify people who may be at higher risk for certain medical problems.\.br\ What are BMI measurements used for?\.br\ BMI is used as a screening tool to identify possible weight problems. It helps determine whether a person is obese, overweight, a healthy weight, or underweight.\.br\ BMI is useful for:\.br\ ? \.br\ Identifying a weight problem that may be related to a medical condition or may increase the risk for medical problems.\.br\ ? \.br\ Promoting changes, such as changes in diet and exercise, to help reach a healthy weight. BMI screening can be repeated to see if these changes are working.\.br\ How is BMI calculated?\.br\ BMI involves measuring your weight in relation to your height. Both height and weight are measured, and the BMI is calculated from those numbers. This can be done either in [place] or metric measurements. Note that charts and online BMI calculators are available to help you find your BMI quickly and easily without having to do these calculations yourself.\.br\ To calculate your BMI in [place] ([place] measurements:\.br \ \.br\ 1. \.br\ Measure your weight in pounds (lb).\.br\ 2. \.br\ Multiply the number of pounds by 703.\.br\ ? \.br\ For example, for a person who weighs 180 lb, multiply that number by 703, which equals 126,540.\.br\ 3. \.br\ Measure your height in inches. Then multiply that number by itself to get a measurement called inches squared. \.br\ ? \.br\ For example, for a person who is 70 inches tall, the inches squared measurement is 70 inches x 70 inches, which equals 4,900 inches squared.\.br\ 4. \.br\ Divide the total from step 2 (number of lb x 703) by the total from step 3 (inches squared): 126,540 ? 4,900 = 25.8. This is your BMI.\.br\ To calculate your BMI in metric measurements:\.br \ 1. \.br\ Measure your weight in kilograms (kg).\.br\ 2. \.br\ Measure your height in meters (m). Then multiply that number by itself to get a measurement called meters squared. \.br\ ? \.br\ For example, for a person who is 1.75 m tall, the meters squared measurement is 1.75 m x 1.75 m, which is equal to 3.1 meters squared.\.br\ 3. \.br\ Divide the number of kilograms (your weight) by the meters squared number. In this example: 70 ? 3.1 = 22.6. This is your BMI.\.br\ What do the results mean?\.br\ BMI charts are used to identify whether you are underweight, normal weight, overweight, or obese. The following guidelines will be used:\.br\ ? \.br\ Underweight: BMI less than 18.5.\.br\ ? \.br\ Normal weight: BMI between 18.5 and 24.9.\.br\ ? \.br\ Overweight: BMI between 25 and 29.9.\.br\ ? \.br\ Obese: BMI of 30 or above.\.br\ Keep these notes in mind:\.br\ ? \.br\ Weight includes both fat and muscle, so someone with a muscular build, such as an athlete, may have a BMI that is higher than 24.9. In cases like these, BMI is not an accurate measure of body fat.\.br\ ? \.br\ To determine if excess body fat is the cause of a BMI of 25 or higher, further assessments may need to be done by a health care provider.\.br\ ? \.br\ BMI is usually interpreted in the same way for men and women.\.br\ Where to find more information\.br\ For more information about BMI, including tools to quickly calculate your BMI, go to these websites:\.br\ ? \.br\ Centers for Disease Control and Prevention: www.cdc.gov\.br\ ? \.br\ [place] [employer]: www.heart.org\.br \ ? \.br\ National Heart, Lung, and Blood [place]: www.nhlbi.nih.gov \.br\ Summary\.br\ ? \.br\ Body mass index (BMI) is a number that is calculated from a person's weight and height.\.br\ ? \.br\ BMI may help estimate how much of a person's weight is composed of fat. BMI can help identify those who may be at higher risk for certain medical problems.\.br\ ? \.br\ BMI can be measured using Indian measurements or metric measurements.\.br \ ? \.br\ BMI charts are used [facility] Ambulatory Visit Summary ANGELA ALONZO Elvin :1955 Visit Date:05/10/2023 Ambulatory Visit Instructions Your Diagnosis Annual visit for general adult medical examination without abnormal findings Asthma, moderate persistent Moderate recurrent major depression Other insomnia Sensory peripheral neuropathy Hyperlipemia, mixed BMI 35.0-35.9,adult Obesity due to excess calories Your Care Team Attending Physician - Esperanza CHANEY MD, FAAFP Primary Care Physician - Esperanza CHANEY MD, FAAFP This Is Your Medications [place] [facility] [place]Handic[place] Parking Placard) albuterol (Albuterol (Eqv-ProAir HFA) 90 mcg/inh inhalation aerosol) albuterol (albuterol 0.083% Inh Robyn 3 mL) ascorbic acid (Vitamin C 500 mg oral tablet, chewable) budesonide (budesonide 0.5 mg/2 mL Inh Susp) calcium-vitamin D (calcium-vitamin D 200 mg-250 intl units oral tablet) cetirizine (cetirizine 10 mg Tab) cholecalciferol (Vitamin D 1000 intl units Tab) escitalopram (escitalopram 20 mg Tab) fluticasone nasal (Flonase 0.05 mg/inh [place]) gabapentin (gabapentin 300 mg Cap) hydrOXYzine (hydrOXYzine hydrochloride 25 mg Tab) montelukast (Singulair 10 mg Tab) omega-3 polyunsaturated fatty acids (Fish Oil 500 mg oral capsule) Procedures Performed Colonoscopy (07/07/2022), Total knee arthroplasty (01/03/2022), Cardiac catheterization, left heart (12/17/2021), left needle localized breast biopsy (08/22/2012), Breast biopsy and related procedures (01/2002), HEEL SPUR REMOVAL. What to do next Scheduled Follow-Up Appointments Monday 10:40 AM EST Where: [facility] Medicine [place] [phone] \.br\ Medications\.br\ What How Much When Instructions\.br\ Unchanged albuterol (Albuterol (Eqv-ProAir HFA) 90 mcg/ inh inhalation aerosol) 2 Puffs Inhalation 4 times a day as needed for Wheezing\.br\ Unchanged albuterol (albuterol 0.083% Inh Robyn 3 mL) 0.083% - 3mL dosing units Inhalation Every 6 hours as needed for Wheezing\.br\ Unchanged ascorbic acid (Vitamin C 500 mg oral tablet, chewable) 1 Tablets Chewed Every day\.br\ Unchanged budesonide (budesonide 0.5 mg/ 2 mL Inh Susp) 2 Milliliter Nebulized inhalation (aerosol) 2 times a day\.br\ Unchanged calcium-vitamin D (calcium-vitamin D 200 mg-250 intl units oral tablet) 1 Tablets By Mouth 2 times a day\.br\ Unchanged cetirizine (cetirizine 10 mg Tab) 1 Tablets By Mouth Every day\.br\ Unchanged cholecalciferol (Vitamin D 1000 intl units Tab) 1 Tablets By Mouth Every day\.br\ Unchanged escitalopram (escitalopram 20 mg Tab) 1 Tablets By Mouth Every day\.br\ Unchanged fluticasone nasal (Flonase 0.05 mg/ inh [place]) 2 Sprays Nasal Inhalation Every day each nostril \.br\ Unchanged gabapentin (gabapentin 300 mg Cap) 1 Capsules By Mouth 3 times a day\.br\ Unchanged hydrOXYzine (hydrOXYzine hydrochloride 25 mg Tab) 1 Tablets By Mouth 4 times a day as needed for as needed for itching\.br\ Unchanged Misc Prescription (Handicapped Parking Placard) 0 5 year duration \.br\ Unchanged montelukast (Singulair 10 mg Tab) 1 Tablets By Mouth Once a day (in the evening)\.br\ Unchanged omega-3 polyunsaturated fatty acids (Fish Oil 500 mg oral capsule) 2 Capsules By Mouth 2 times a day\.br\ Allergies\.br\ Anaprox (Nausea)\.br\ amoxicillin (Rash)\.br\ codeine (Lightheaded, Nausea with Vomiting)\.br\ Problems\.br\ Ongoing - Any problem that you are currently receiving treatment for.\.br\ Abnormal ECG\.br\ Allergic rhinitis, seasonal\.br\ Asthma, moderate persistent\.br\ B12 nutritional deficiency\.br\ BMI 35.0-35.9,adult\. br\ Diastolic dysfunction without heart failure\.br\ External hemorrhoids\.br\ Family history of colon cancer\.br\ Hyperlipemia, mixed\.br\ Influenza vaccination declined\.br\ Moderate recurrent major depression\.br\ Obesity due to excess calories\.br\ Onychomycosis of left great toe\.br\ Other insomnia\.br\ Perennial allergic rhinitis\.br\ Right foot pain\.br\ Sensory peripheral neuropathy\.br\ Historical - Any problem that you are no longer receiving treatment for.\.br\ Artificial menopause\.br\ Atrophic vaginitis\.br\ Breast cancer screening by mammogram\.br\ Colon cancer screening\.br\ COVID-19 vaccine series started\.br\ Knee pain\.br\ Lumbar back pain\.br\ Menopausal syndrome\.br\ Osteoporosis of lumbar spine\.br\ Patient Survey\.br\ You may receive a survey via text or e-mail asking about your office visit. Please share your experience with us by completing your survey. We appreciate your feedback and thank you for choosing us for your care.\.br\ \.br\ [facility] Medicine Office/Clini c Noteon 05-10-2023 Family Medicine Office/Clinic Note Chief Complaint Medicare Wellness Visit Review of Systems PHQ Score Initial Depression Screen Score: 0 Physical Exam Vitals & Measurements HR: 78(Peripheral) BP: 122/76 SpO2: 96% HT: 170.18 cm HT: 67 in WT: 100.5 kg WT: 221.1 lb BMI: 34.7 Assessment/Plan I was in the office and available for consultation and to provide direct supervision at the time of this visit. I have provided supervision of the care team and have reviewed this chart and office note and agree with the plan of care. 1. Annual visit for general adult medical examination without abnormal findings (Z00.00: Encounter for general adult medical examination without abnormal findings) The patient was given a customized and personalized print out of all the current AHRQ USPSTF?s recommendations for preventative services and all current CDC recommended immunizations, relevant risk recommendations and the following patient brochures were given. Reviewed Medicare Prevention Services checklist. CDC-Falls Prevention and home safety screening reviewed. Patient denies any falls in last 12 months, voices no worry about falling. Exhibits no problems with sitting, standing or ambulation. Patient aware with keeping walk way area free of clutter to prevent tripping and/or falling. [place] Advance Directives reviewed. Documents remato be completed, encouraged to bring in for scanning into chart when complete. Patient denies any problems with ADL?s and Instrumental ADL?s. Cognitive screening completed with memory and clock face drawing. No deficits noted. Immunization record reviewed, discussed Shingrix vaccines refused. COVID vaccines have been administered, with 2 Boosters received. Allergies and medications reviewed and up to date. No concerns with taking medication as prescribed. Reviewed OTC medications, medication list up to date. Blood tests were reviewed: Discussed what tests need to be updated. Labs were up to date, will have completed prior to next PCP visit. Labs to be completed with [facility]. No concerns with bowel/ bladder. Colonoscopy last completed 07/07/22 repeat in 3 years, referral placed by PCP. Reviewed pain symptoms : right foot toes swollen and painful, seeing Dr. Colindres today, rates pain as a 6 out of 10, no pain medications taken. Reviewed all outside providers that patient follows. Last visit summary notes available in chart and/or have been requested. Patient declines any signs or symptoms of depression at this time. 8 minutes spent with screening and documentation. PHQ7 screening score 7. Patient never drinks alcohol, denies concerns. 8 minutes spent with screening and documentation. Audit score 0. Follow up scheduled with PCP, 05/15/23 AWV has been scheduled, 05/13/24 @9:30AM. Medicare provides yearly screening for alcohol and depression concerns. This is completed during our Medicare wellness visit for those who do not have a current diagnosis of depression or concerns with alcohol use. I spent a total of 17 minutes on this date of service which included preparing to see the patient, face to face patient care, completing clinical documentation, obtaining and/or reviewing separately obtained history, counseling and educating the patient with handouts. Explanations were provided with reviewing questionnaires. AUDIT risk assessment screening completed, risk score (0) with patient denying concerns with use. Completed PHQ-9 risk assessment for depression with risk score (7), negative findings. Patient has been reminded to notify the provider if there would be a change or concerns with symptoms with fear, unable to sleep, worrying too much or feeling down and/or sad with lost of interest with daily activities. Will continue to monitor with screening yearly during Medicare wellness visits. 2. Asthma, moderate persistent (J45.40: Moderate persistent asthma, uncomplicated) Patient takes inhalers as directed, uses PRN nebulizer treatments when needed. Remains on R/A, o2Sat 96% today , will follow up as needed with Dr. Chaney 3. Moderate recurrent major depression (F33.1: Major depressive disorder, recurrent, moderate) PHQ-9 completed with score 7. Denies concerns, voices no suicidal ideations. Taking medication daily, patient voices effectiveness with this medication. Educational handouts reviewed with signs and symptoms to monitor for and report to PCP. Medications managed with office visits, OPIOD risk with OARRS completed with PCP. 4. Other insomnia (G47.09: Other insomnia) Patient follows with PCP . Takes Meletonin nightly, voices effectiveness. Will continue to follow with PCP. 5. Sensory peripheral neuropathy (G60.8: Other hereditary and idiopathic neuropathies) Patient complains of numbness/pain feet. Patient follows with Dr. Chaney yearly for medications or testing. Patients states medication not helpful. Denies further questions or concerns. 6. Hyperlipemia, mixed (E78.2: Mixed hyperlipidemia) Patient encouraged to eat a diet that is low in saturated fats. Stressed impor (more content not included)... [facility] Comment on above: Result Comment: Elec tronically Signed By: Vikram CHANEY MD\.br\Date and Time Signed: 05/10/23 10:36 EDT\.br\Electronically Co-Signed By: Darling Medina\.br\Date and Time Co-Signed: 05/10/23 09:16 EDT Patient Educationon 05-10-20 Patient Education Mental and Behavioral Health Insomnia Insomnia is a sleep disorder that makes it difficult to fall asleep or stay asleep. Insomnia can cause fatigue, low energy, difficulty concentrating, mood swings, and poor performance at work or school. There are three different ways to classify insomnia: ? Difficulty falling asleep. ? Difficulty staying asleep. ? Waking up too early in the morning. Any type of insomnia can be long-term (chronic) or short-term (acute). Both are common. Short-term insomnia usually lasts for 3 months or less. Chronic insomnia occurs at least three times a week for longer than 3 months. What are the causes? Insomnia may be caused by another condition, situation, or substance, such as: ? Having certain mental health conditions, such as anxiety and depression. ? Using caffeine, alcohol, tobacco, or drugs. ? Having gastrointestinal conditions, such as gastroesophageal reflux disease (GERD). ? Having certain medical conditions. These include: ? Asthma. ? Alzheimer's disease. ? Stroke. ? Chronic pain. ? An overactive thyroid gland (hyperthyroidism). ? Other sleep disorders, such as restless legs syndrome and sleep apnea. ? Menopause. Sometimes, the cause of insomnia may not be known. What increases the risk? Risk factors for insomnia include: ? Gender. Females are affected more often than males. ? Age. Insomnia is more common as people get older. ? Stress and certain medical and mental health conditions. ? Lack of exercise. ? Having an irregular work schedule. This may include working night shifts and traveling between different time zones. What are the signs or symptoms? If you have insomnia, the main symptom is having trouble falling asleep or having trouble staying asleep. This may lead to other symptoms, such as: ? Feeling tired or having low energy. ? Feeling nervous about going to sleep. ? Not feeling rested in the morning. ? Having trouble concentrating. ? Feeling irritable, anxious, or depressed. How is this diagnosed? This condition may be diagnosed based on: ? Your symptoms and medical history. Your health care provider may ask about: ? Your sleep habits. ? Any medical conditions you have. ? Your mental health. ? A physical exam. How is this treated? Treatment for insomnia depends on the cause. Treatment may focus on treating an underlying condition that is causing the insomnia. Treatment may also include: ? Medicines to help you sleep. ? Counseling or therapy. ? Lifestyle adjustments to help you sleep better. Follow these instructions at home: Eating and drinking ? Limit or avoid alcohol, caffeinated beverages, and products that contain nicotine and tobacco, especially close to bedtime. These can disrupt your sleep. ? Do not eat a large meal or eat spicy foods right before bedtime. This can lead to digestive discomfort that can make it hard for you to sleep. Sleep habits ? Keep a sleep diary to help you and your health care provider figure out what could be causing your insomnia. Write down: ? When you sleep. ? When you wake up during the night. ? How well you sleep and how rested you feel the next day. ? Any side effects of medicines you are taking. ? What you eat and drink. ? Make your bedroom a dark, comfortable place where it is easy to fall asleep. ? Put up shades or blackout curtains to block light from outside. ? Use a white noise machine to block noise. ? Keep the temperature cool. ? Limit screen use before bedtime. This includes: ? Not watching TV. ? Not using your smartphone, tablet, or computer. ? Stick to a routine that includes going to bed and waking up at the same times every day and night. This can help you fall asleep faster. Consider making a quiet activity, such as reading, part of your nighttime routine. ? Try to avoid taking naps during the day so that you sleep better at night. ? Get out of bed if you are still awake after 15 minutes of trying to sleep. Keep the lights down, but try reading or doing a quiet activity. When you feel sleepy, go back to bed. General instructions ? Take [id number] and prescription medicines only as told by your health care provider. ? Exercise regularly as told by your health care provider. However, avoid exercising in the hours right before bedtime. ? Use relaxation techniques to manage stress. Ask your health care provider to suggest some techniques that may work well for you. These may include: ? Breathing exercises. ? Routines to release muscle tension. ? Visualizing peaceful scenes. ? Make sure that you drive carefully. Do not drive if you feel very sleepy. ? Keep all follow-up visits. This is important. Contact a health care provider if: ? You are tired throughout the day. ? You have trouble in your daily routine due to sleepiness. ? You continue to have sleep problems, or your sleep prob (more content not included)... Normal [facility] Screenson 05-10-2023 Screens [id number] [facility] Ambulatory Visit Summaryon 1 Ambulatory Visit Summary ANGELA ALONZO :1955 Visit Date:05/08/2023 Ambulatory Visit Instructions Your Diagnosis Allergic rhinitis, seasonal Asthma, moderate persistent Your Care Team Attending Physician - Esperanza CHANEY MD, FAAFP Primary Care Physician - Esperanza CHANEY MD, FAAFP This Is Your [place]ations [place] [facility] [place]Handicapped Parking Placard) albuterol (Albuterol (Eqv-ProAir HFA) 90 mcg/inh inhalation aerosol) albuterol (albuterol 0.083% Inh Robyn 3 mL) ascorbic acid (Vitamin C 500 mg oral tablet, chewable) budesonide (budesonide 0.5 mg/2 mL Inh Susp) calcium-vitamin D (calcium-vitamin D 200 mg-250 intl units oral tablet) cetirizine (cetirizine 10 mg Tab) cholecalciferol (Vitamin D 1000 intl units Tab) escitalopram (escitalopram 20 mg Tab) fluticasone nasal (Flonase 0.05 mg/inh [place]) gabapentin (gabapentin 300 mg Cap) hydrOXYzine (hydrOXYzine hydrochloride 25 mg Tab) montelukast (Singulair 10 mg Tab) omega-3 polyunsaturated fatty acids (Fish Oil 500 mg oral capsule) Procedures Performed Colonoscopy (07/07/2022), Total knee arthroplasty (01/03/2022), Cardiac catheterization, left heart (12/17/2021), left needle localized breast biopsy (08/22/2012), Breast biopsy and related procedures (01/2002), HEEL SPUR REMOVAL. What to do next Scheduled Follow-Up Appointments Monday 8:00 AM EDT Where: [facility] Medicine [place] [phone] \.br\ Medications\.br\ What How Much When Instructions\.br\ Unchanged albuterol (Albuterol (Eqv-ProAir HFA) 90 mcg/ inh inhalation aerosol) 2 Puffs Inhalation 4 times a day as needed for Wheezing\.br\ Unchanged albuterol (albuterol 0.083% Inh Robyn 3 mL) 0.083% - 3mL dosing units Inhalation Every 6 hours as needed for Wheezing\.br\ Unchanged ascorbic acid (Vitamin C 500 mg oral tablet, chewable) 1 Tablets Chewed Every day\.br\ Unchanged budesonide (budesonide 0.5 mg/ 2 mL Inh Susp) 2 Milliliter Nebulized inhalation (aerosol) 2 times a day\.br\ Unchanged calcium-vitamin D (calcium-vitamin D 200 mg-250 intl units oral tablet) 1 Tablets By Mouth 2 times a day\.br\ Unchanged cetirizine (cetirizine 10 mg Tab) 1 Tablets By Mouth Every day\.br\ Unchanged cholecalciferol (Vitamin D 1000 intl units Tab) 1 Tablets By Mouth Every day\.br\ Unchanged escitalopram (escitalopram 20 mg Tab) 1 Tablets By Mouth Every day\.br\ Unchanged fluticasone nasal (Flonase 0.05 mg/ inh [place]) 2 Sprays Nasal Inhalation Every day each nostril \.br\ Unchanged gabapentin (gabapentin 300 mg Cap) 1 Capsules By Mouth 3 times a day\.br\ Unchanged hydrOXYzine (hydrOXYzine hydrochloride 25 mg Tab) 1 Tablets By Mouth 4 times a day as needed for as needed for itching\.br\ Unchanged Misc Prescription (Handicapped Parking Placard) 0 5 year duration \.br\ Unchanged montelukast (Singulair 10 mg Tab) 1 Tablets By Mouth Once a day (in the evening)\.br\ Unchanged omega-3 polyunsaturated fatty acids (Fish Oil 500 mg oral capsule) 2 Capsules By Mouth 2 times a day\.br\ Allergies\.br\ Anaprox (Nausea)\.br\ amoxicillin (Rash)\.br\ codeine (Lightheaded, Nausea with Vomiting)\.br\ Problems\.br\ Ongoing - Any problem that you are currently receiving treatment for.\.br\ Abnormal ECG\.br\ Allergic rhinitis, seasonal\.br\ Asthma, moderate persistent\.br\ B12 nutritional deficiency\.br\ BMI 35.0-35.9,adult\. br\ Diastolic dysfunction without heart failure\.br\ External hemorrhoids\.br\ Family history of colon cancer\.br\ Hyperlipemia, mixed\.br\ Influenza vaccination declined\.br\ Moderate recurrent major depression\.br\ Obesity due to excess calories\.br\ Onychomycosis of left great toe\.br\ Other insomnia\.br\ Perennial allergic rhinitis\.br\ Right foot pain\.br\ Sensory peripheral neuropathy\.br\ Historical - Any problem that you are no longer receiving treatment for.\.br\ Artificial menopause\.br\ Atrophic vaginitis\.br\ Breast cancer screening by mammogram\.br\ Colon cancer screening\.br\ COVID-19 vaccine series started\.br\ Knee pain\.br\ Lumbar back pain\.br\ Menopausal syndrome\.br\ Osteoporosis of lumbar spine\.br\ Patient Survey\.br\ You may receive a survey via text or e-mail asking about your office visit. Please share your experience with us by completing your survey. We appreciate your feedback and thank you for choosing us for your care.\.br\ \.br\ [facility] Nurse Consultation Noteon Nurse Consultation Note Reason for Visit Allergy injection Medications Albuterol (Eqv-ProAir HFA) 90 mcg/inh inhalation aerosol, 2 puff(s), Inhalation, QID, PRN, 2 refills albuterol 0.083% Inh Robyn 3 mL, 0.083% - 3mL dosing units, Inhalation, q6hr, PRN, 2 refills budesonide 0.5 mg/2 mL Inh Susp, 0.5 mg= 2 mL, NEB, BID, 1 refills calcium-vitamin D 200 mg-250 intl units oral tablet, 1 tab(s), Oral, BID cetirizine 10 mg Tab, 10 mg= 1 tab(s), Oral, Daily escitalopram 20 mg Tab, 20 mg= 1 tab(s), Oral, Daily, 1 refills Fish Oil 500 mg oral capsule, 1000 mg= 2 cap(s), Oral, BID Flonase 0.05 mg/inh [place], 2 spray(s), Nasal, Daily gabapentin 300 mg Cap, 300 mg= 1 cap(s), Oral, TID, 3 refills Handicapped Parking Placard, 0 hydrOXYzine hydrochloride 25 mg Tab, 25 mg= 1 tab(s), Oral, QID, PRN, 1 refills Singulair 10 mg Tab, 10 mg= 1 tab(s), Oral, qPM, 1 refills Vitamin C 500 mg oral tablet, chewable, 500 mg= 1 tab(s), Chewed, Daily Vitamin D 1000 intl units Tab, 25 mcg= 1 tab(s), Oral, Daily Allergies Anaprox (Nausea) amoxicillin (Rash) codeine (Lightheaded, Nausea with Vomiting) Immunizations Vaccine Date Status Comments influenza virus vaccine, inactivated - Not Given Postpone due to refusal influenza virus vaccine, inactivated - Not Given Postpone due to refusal influenza virus vaccine, inactivated - Not Given Postpone due to refusal pneumococcal 23-valent vaccine - Not Given Postpone due to refusal SARS-CoV-2 (COVID-19) mRNA-1273 vaccine 06/15/2021 Recorded SARS-CoV-2 (COVID-19) mRNA-1273 vaccine 10/06/2020 Recorded 2022-11-23: 60 SARS-CoV-2 (COVID-19) mRNA-1273 vaccine 09/26/2020 Recorded SARS-CoV-2 (COVID-19) mRNA-1273 vaccine 09/08/2020 Recorded pneumococcal 23-valent vaccine 04/07/2005 Recorded Normal [facility] Patient [place] 05-08-2023 Patient Logs [id number] [email or web address]#[email or web address] Normal [facility] Physician Referralon 023 Physician Referral [id number] [email or web address]#[email or web address] Normal [facility] Ambulatory Visit Summaryon 1 Ambulatory Visit Summary ANGELA ALONZO :1955 Visit Date:04/24/2023 Ambulatory Visit Instructions Your Care Team Attending Physician - RITU HALL, Vikram Primary Care Physician - RITU HALL FAARICHARD, Esperanza Carmichael This Is Your Medications [place] [facility] [place]Handicapped Parking Placard) albuterol (Albuterol (Eqv-ProAir HFA) 90 mcg/inh inhalation aerosol) albuterol (albuterol 0.083% Inh Robyn 3 mL) ascorbic acid (Vitamin C 500 mg oral tablet, chewable) budesonide (budesonide 0.5 mg/2 mL Inh Susp) calcium-vitamin D (calcium-vitamin D 200 mg-250 intl units oral tablet) cetirizine (cetirizine 10 mg Tab) cholecalciferol (Vitamin D 1000 intl units Tab) escitalopram (escitalopram 20 mg Tab) fluticasone nasal (Flonase 0.05 mg/inh [place]) gabapentin (gabapentin 300 mg Cap) hydrOXYzine (hydrOXYzine hydrochloride 25 mg Tab) montelukast (Singulair 10 mg Tab) omega-3 polyunsaturated fatty acids (Fish Oil 500 mg oral capsule) Procedures Performed Colonoscopy (07/07/2022), Total knee arthroplasty (01/03/2022), Cardiac catheterization, left heart (12/17/2021), left needle localized breast biopsy (08/22/2012), Breast biopsy and related procedures (01/2002), HEEL SPUR REMOVAL. What to do next Scheduled Follow-Up Appointments Monday 10:40 AM EDT Where: [facility] [place] Normal [address] [place] [phone] \.br\ Medications\.br\ What How Much When Instructions\.br\ Unchanged albuterol (Albuterol (Eqv-ProAir HFA) 90 mcg/ inh inhalation aerosol) 2 Puffs Inhalation 4 times a day as needed for Wheezing\.br\ Unchanged albuterol (albuterol 0.083% Inh Robyn 3 mL) 0.083% - 3mL dosing units Inhalation Every 6 hours as needed for Wheezing\.br\ Unchanged ascorbic acid (Vitamin C 500 mg oral tablet, chewable) 1 Tablets Chewed Every day\.br\ Unchanged budesonide (budesonide 0.5 mg/ 2 mL Inh Susp) 2 Milliliter Nebulized inhalation (aerosol) 2 times a day\.br\ Unchanged calcium-vitamin D (calcium-vitamin D 200 mg-250 intl units oral tablet) 1 Tablets By Mouth 2 times a day\.br\ Unchanged cetirizine (cetirizine 10 mg Tab) 1 Tablets By Mouth Every day\.br\ Unchanged cholecalciferol (Vitamin D 1000 intl units Tab) 1 Tablets By Mouth Every day\.br\ Unchanged escitalopram (escitalopram 20 mg Tab) 1 Tablets By Mouth Every day\.br\ Unchanged fluticasone nasal (Flonase 0.05 mg/ inh [place]) 2 Sprays Nasal Inhalation Every day each nostril \.br\ Unchanged gabapentin (gabapentin 300 mg Cap) 1 Capsules By Mouth 3 times a day\.br\ Unchanged hydrOXYzine (hydrOXYzine hydrochloride 25 mg Tab) 1 Tablets By Mouth 4 times a day as needed for as needed for itching\.br\ Unchanged Misc Prescription (Handicapped Parking Placard) 0 5 year duration \.br\ Unchanged montelukast (Singulair 10 mg Tab) 1 Tablets By Mouth Once a day (in the evening)\.br\ Unchanged omega-3 polyunsaturated fatty acids (Fish Oil 500 mg oral capsule) 2 Capsules By Mouth 2 times a day\.br\ Allergies\.br\ Anaprox (Nausea)\.br\ amoxicillin (Rash)\.br\ codeine (Lightheaded, Nausea with Vomiting)\.br\ Problems\.br\ Ongoing - Any problem that you are currently receiving treatment for.\.br\ Abnormal ECG\.br\ Allergic rhinitis, seasonal\.br\ Asthma, moderate persistent\.br\ B12 nutritional deficiency\.br\ BMI 35.0-35.9,adult\. br\ Diastolic dysfunction without heart failure\.br\ External hemorrhoids\.br\ Family history of colon cancer\.br\ Hyperlipemia, mixed\.br\ Influenza vaccination declined\.br\ Moderate recurrent major depression\.br\ Obesity due to excess calories\.br\ Onychomycosis of left great toe\.br\ Other insomnia\.br\ Perennial allergic rhinitis\.br\ Sensory peripheral neuropathy\.br\ Historical - Any problem that you are no longer receiving treatment for.\.br\ Artificial menopause\.br\ Atrophic vaginitis\.br\ Breast cancer screening by mammogram\.br\ Colon cancer screening\.br\ COVID-19 vaccine series started\.br\ Knee pain\.br\ Lumbar back pain\.br\ Menopausal syndrome\.br\ Osteoporosis of lumbar spine\.br\ \.br\ [facility] Nurse Consultation Noteon Nurse Consultation Note Reason for Visit Allergy injection Medications Albuterol (Eqv-ProAir HFA) 90 mcg/inh inhalation aerosol, 2 puff(s), Inhalation, QID, PRN, 2 refills albuterol 0.083% Inh Robyn 3 mL, 0.083% - 3mL dosing units, Inhalation, q6hr, PRN, 2 refills budesonide 0.5 mg/2 mL Inh Susp, 0.5 mg= 2 mL, NEB, BID, 1 refills calcium-vitamin D 200 mg-250 intl units oral tablet, 1 tab(s), Oral, BID cetirizine 10 mg Tab, 10 mg= 1 tab(s), Oral, Daily escitalopram 20 mg Tab, 20 mg= 1 tab(s), Oral, Daily, 1 refills Fish Oil 500 mg oral capsule, 1000 mg= 2 cap(s), Oral, BID Flonase 0.05 mg/inh [place], 2 spray(s), Nasal, Daily gabapentin 300 mg Cap, 300 mg= 1 cap(s), Oral, TID, 3 refills Handicapped Parking Placard, 0 hydrOXYzine hydrochloride 25 mg Tab, 25 mg= 1 tab(s), Oral, QID, PRN, 1 refills Singulair 10 mg Tab, 10 mg= 1 tab(s), Oral, qPM, 1 refills Vitamin C 500 mg oral tablet, chewable, 500 mg= 1 tab(s), Chewed, Daily Vitamin D 1000 intl units Tab, 25 mcg= 1 tab(s), Oral, Daily Allergies Anaprox (Nausea) amoxicillin (Rash) codeine (Lightheaded, Nausea with Vomiting) Immunizations Vaccine Date Status Comments influenza virus vaccine, inactivated - Not Given Postpone due to refusal influenza virus vaccine, inactivated - Not Given Postpone due to refusal influenza virus vaccine, inactivated - Not Given Postpone due to refusal pneumococcal 23-valent vaccine - Not Given Postpone due to refusal SARS-CoV-2 (COVID-19) mRNA-1273 vaccine 06/15/2021 Recorded SARS-CoV-2 (COVID-19) mRNA-1273 vaccine 10/06/2020 Recorded 2022-11-23: 60 SARS-CoV-2 (COVID-19) mRNA-1273 vaccine 09/26/2020 Recorded SARS-CoV-2 (COVID-19) mRNA-1273 vaccine 09/08/2020 Recorded pneumococcal 23-valent vaccine 04/07/2005 Recorded Normal Dom[facility] Ambulatory Visit Summaryon 1 Ambulatory Visit Summary ANGELA ALONZO :1955 Visit Date:04/10/2023 Ambulatory Visit Instructions Your Care Team Attending Physician - Esperanza CHANEY MD, FAAFP Primary Care Physician - Esperanza CHANEY MD, FAAFP This Is Your Medications [place] [facility] [place]Handicapped Parking Placard) albuterol (Albuterol (Eqv-ProAir HFA) 90 mcg/inh inhalation aerosol) albuterol (albuterol 0.083% Inh Robyn 3 mL) ascorbic acid (Vitamin C 500 mg oral tablet, chewable) budesonide (budesonide 0.5 mg/2 mL Inh Susp) calcium-vitamin D (calcium-vitamin D 200 mg-250 intl units oral tablet) cetirizine (cetirizine 10 mg Tab) cholecalciferol (Vitamin D 1000 intl units Tab) escitalopram (escitalopram 20 mg Tab) fluticasone nasal (Flonase 0.05 mg/inh [place]) gabapentin (gabapentin 300 mg Cap) hydrOXYzine (hydrOXYzine hydrochloride 25 mg Tab) montelukast (Singulair 10 mg Tab) omega-3 polyunsaturated fatty acids (Fish Oil 500 mg oral capsule) Procedures Performed Colonoscopy (07/07/2022), Total knee arthroplasty (01/03/2022), Cardiac catheterization, left heart (12/17/2021), left needle localized breast biopsy (08/22/2012), Breast biopsy and related procedures (01/2002), HEEL SPUR REMOVAL. What to do next Scheduled Follow-Up Appointments Monday 10:40 AM EDT Where: [facility] Medicine [place] [phone] \.br\ Medications\.br\ What How Much When Instructions\.br\ Unchanged albuterol (Albuterol (Eqv-ProAir HFA) 90 mcg/ inh inhalation aerosol) 2 Puffs Inhalation 4 times a day as needed for Wheezing\.br\ Unchanged albuterol (albuterol 0.083% Inh Robyn 3 mL) 0.083% - 3mL dosing units Inhalation Every 6 hours as needed for Wheezing\.br\ Unchanged ascorbic acid (Vitamin C 500 mg oral tablet, chewable) 1 Tablets Chewed Every day\.br\ Unchanged budesonide (budesonide 0.5 mg/ 2 mL Inh Susp) 2 Milliliter Nebulized inhalation (aerosol) 2 times a day\.br\ Unchanged calcium-vitamin D (calcium-vitamin D 200 mg-250 intl units oral tablet) 1 Tablets By Mouth 2 times a day\.br\ Unchanged cetirizine (cetirizine 10 mg Tab) 1 Tablets By Mouth Every day\.br\ Unchanged cholecalciferol (Vitamin D 1000 intl units Tab) 1 Tablets By Mouth Every day\.br\ Unchanged escitalopram (escitalopram 20 mg Tab) 1 Tablets By Mouth Every day\.br\ Unchanged fluticasone nasal (Flonase 0.05 mg/ inh [place]) 2 Sprays Nasal Inhalation Every day each nostril \.br\ Unchanged gabapentin (gabapentin 300 mg Cap) 1 Capsules By Mouth 3 times a day\.br\ Unchanged hydrOXYzine (hydrOXYzine hydrochloride 25 mg Tab) 1 Tablets By Mouth 4 times a day as needed for as needed for itching\.br\ Unchanged Misc Prescription (Handicapped Parking Placard) 0 5 year duration \.br\ Unchanged montelukast (Singulair 10 mg Tab) 1 Tablets By Mouth Once a day (in the evening)\.br\ Unchanged omega-3 polyunsaturated fatty acids (Fish Oil 500 mg oral capsule) 2 Capsules By Mouth 2 times a day\.br\ Allergies\.br\ Anaprox (Nausea)\.br\ amoxicillin (Rash)\.br\ codeine (Lightheaded, Nausea with Vomiting)\.br\ Problems\.br\ Ongoing - Any problem that you are currently receiving treatment for.\.br\ Abnormal ECG\.br\ Allergic rhinitis, seasonal\.br\ Asthma, moderate persistent\.br\ B12 nutritional deficiency\.br\ BMI 35.0-35.9,adult\. br\ Diastolic dysfunction without heart failure\.br\ External hemorrhoids\.br\ Family history of colon cancer\.br\ Hyperlipemia, mixed\.br\ Influenza vaccination declined\.br\ Moderate recurrent major depression\.br\ Obesity due to excess calories\.br\ Onychomycosis of left great toe\.br\ Other insomnia\.br\ Perennial allergic rhinitis\.br\ Sensory peripheral neuropathy\.br\ Historical - Any problem that you are no longer receiving treatment for.\.br\ Artificial menopause\.br\ Atrophic vaginitis\.br\ Breast cancer screening by mammogram\.br\ Colon cancer screening\.br\ COVID-19 vaccine series started\.br\ Knee pain\.br\ Lumbar back pain\.br\ Menopausal syndrome\.br\ Osteoporosis of lumbar spine\.br\ \.br\ [facility] Nurse Consultation Noteon Nurse Consultation Note Reason for Visit Alllergy injection Medications Albuterol (Eqv-ProAir HFA) 90 mcg/inh inhalation aerosol, 2 puff(s), Inhalation, QID, PRN, 2 refills albuterol 0.083% Inh Robyn 3 mL, 0.083% - 3mL dosing units, Inhalation, q6hr, PRN, 2 refills budesonide 0.5 mg/2 mL Inh Susp, 0.5 mg= 2 mL, NEB, BID, 1 refills calcium-vitamin D 200 mg-250 intl units oral tablet, 1 tab(s), Oral, BID cetirizine 10 mg Tab, 10 mg= 1 tab(s), Oral, Daily escitalopram 20 mg Tab, 20 mg= 1 tab(s), Oral, Daily, 1 refills Fish Oil 500 mg oral capsule, 1000 mg= 2 cap(s), Oral, BID Flonase 0.05 mg/inh [place], 2 spray(s), Nasal, Daily gabapentin 300 mg Cap, 300 mg= 1 cap(s), Oral, TID, 3 refills Handicapped Parking Placard, 0 hydrOXYzine hydrochloride 25 mg Tab, 25 mg= 1 tab(s), Oral, QID, PRN, 1 refills Singulair 10 mg Tab, 10 mg= 1 tab(s), Oral, qPM, 1 refills Vitamin C 500 mg oral tablet, chewable, 500 mg= 1 tab(s), Chewed, Daily Vitamin D 1000 intl units Tab, 25 mcg= 1 tab(s), Oral, Daily Allergies Anaprox (Nausea) amoxicillin (Rash) codeine (Lightheaded, Nausea with Vomiting) Immunizations Vaccine Date Status Comments influenza virus vaccine, inactivated - Not Given Postpone due to refusal influenza virus vaccine, inactivated - Not Given Postpone due to refusal influenza virus vaccine, inactivated - Not Given Postpone due to refusal pneumococcal 23-valent vaccine - Not Given Postpone due to refusal SARS-CoV-2 (COVID-19) mRNA-1273 vaccine 06/15/2021 Recorded SARS-CoV-2 (COVID-19) mRNA-1273 vaccine 10/06/2020 Recorded 2022-11-23: 60 SARS-CoV-2 (COVID-19) mRNA-1273 vaccine 09/26/2020 Recorded SARS-CoV-2 (COVID-19) mRNA-1273 vaccine 09/08/2020 Recorded pneumococcal 23-valent vaccine 04/07/2005 Recorded Normal [facility] Nurse Consultation Noteon Nurse Consultation Note Reason for Visit Allergy injection Medications Albuterol (Eqv-ProAir HFA) 90 mcg/inh inhalation aerosol, 2 puff(s), Inhalation, QID, PRN, 2 refills albuterol 0.083% Inh Robyn 3 mL, 0.083% - 3mL dosing units, Inhalation, q6hr, PRN, 2 refills budesonide 0.5 mg/2 mL Inh Susp, 0.5 mg= 2 mL, NEB, BID, 1 refills calcium-vitamin D 200 mg-250 intl units oral tablet, 1 tab(s), Oral, BID cetirizine 10 mg Tab, 10 mg= 1 tab(s), Oral, Daily escitalopram 20 mg Tab, 20 mg= 1 tab(s), Oral, Daily, 1 refills Fish Oil 500 mg oral capsule, 1000 mg= 2 cap(s), Oral, BID Flonase 0.05 mg/inh [place], 2 spray(s), Nasal, Daily gabapentin 300 mg Cap, 300 mg= 1 cap(s), Oral, TID, 3 refills Handicapped Parking Placard, 0 hydrOXYzine hydrochloride 25 mg Tab, 25 mg= 1 tab(s), Oral, QID, PRN, 1 refills Singulair 10 mg Tab, 10 mg= 1 tab(s), Oral, qPM, 1 refills Vitamin C 500 mg oral tablet, chewable, 500 mg= 1 tab(s), Chewed, Daily Vitamin D 1000 intl units Tab, 25 mcg= 1 tab(s), Oral, Daily Allergies Anaprox (Nausea) amoxicillin (Rash) codeine (Lightheaded, Nausea with Vomiting) Immunizations Vaccine Date Status Comments influenza virus vaccine, inactivated - Not Given Postpone due to refusal influenza virus vaccine, inactivated - Not Given Postpone due to refusal influenza virus vaccine, inactivated - Not Given Postpone due to refusal pneumococcal 23-valent vaccine - Not Given Postpone due to refusal SARS-CoV-2 (COVID-19) mRNA-1273 vaccine 06/15/2021 Recorded SARS-CoV-2 (COVID-19) mRNA-1273 vaccine 10/06/2020 Recorded 2022-11-23: 60 SARS-CoV-2 (COVID-19) mRNA-1273 vaccine 09/26/2020 Recorded SARS-CoV-2 (COVID-19) mRNA-1273 vaccine 09/08/2020 Recorded pneumococcal 23-valent vaccine 04/07/2005 Recorded Ton Dom[facility]ng[facility] Ambulatory Visit Summaryon 0 03-14-2023 Ambulatory Visit Summary ANGELA ALONZO :1955 Visit Date:03/14/2023 Ambulatory Visit Instructions Your Diagnosis Perennial allergic rhinitis Your Care Team Attending Physician - Esperanza CHANEY MD, FAAFP Primary Care Physician - Esperanza CHANEY MD, FAAFP This Is Your Medications List Misc Prescription (Handicapped Parking Placard) albuterol (Albuterol (Eqv-ProAir HFA) 90 mcg/inh inhalation aerosol) albuterol (albuterol 0.083% Inh Robyn 3 mL) ascorbic acid (Vitamin C 500 mg oral tablet, chewable) budesonide (budesonide 0.5 mg/2 mL Inh Susp) calcium-vitamin D (calcium-vitamin D 200 mg-250 intl units oral tablet) cetirizine (cetirizine 10 mg Tab) cholecalciferol (Vitamin D 1000 intl units Tab) escitalopram (escitalopram 20 mg Tab) fluticasone nasal (Flonase 0.05 mg/inh [place]) gabapentin (gabapentin 300 mg Cap) hydrOXYzine (hydrOXYzine hydrochloride 25 mg Tab) montelukast (Singulair 10 mg Tab) omega-3 polyunsaturated fatty acids (Fish Oil 500 mg oral capsule) Procedures Performed Colonoscopy (07/07/2022), Total knee arthroplasty (01/03/2022), Cardiac catheterization, left heart (12/17/2021), left needle localized breast biopsy (08/22/2012), Breast biopsy and related procedures (01/2002), HEEL SPUR REMOVAL. What to do next Scheduled Follow-Up Appointments Monday 8:00 AM EDT Where: [facility] Ambulatory Visit Summaryon 0 02-27-2023 Ambulatory Visit Summary ANGELA ALONZO :1955 Visit Date:02/27/2023 Ambulatory Visit Instructions Your Care Team Attending Physician - Esperanza CHANEY MD, FAAFP Primary Care Physician - Esperanza CHANEY MD, FAAFP This Is Your Medications List Misc Prescription (Handicapped Parking Placard) albuterol (Albuterol (Eqv-ProAir HFA) 90 mcg/inh inhalation aerosol) albuterol (albuterol 0.083% Inh Robyn 3 mL) ascorbic acid (Vitamin C 500 mg oral tablet, chewable) budesonide (budesonide 0.5 mg/2 mL Inh Susp) calcium-vitamin D (calcium-vitamin D 200 mg-250 intl units oral tablet) cetirizine (cetirizine 10 mg Tab) cholecalciferol (Vitamin D 1000 intl units Tab) escitalopram (escitalopram 20 mg Tab) fluticasone nasal (Flonase 0.05 mg/inh [place]) gabapentin (gabapentin 300 mg Cap) hydrOXYzine (hydrOXYzine hydrochloride 25 mg Tab) montelukast (Singulair 10 mg Tab) omega-3 polyunsaturated fatty acids (Fish Oil 500 mg oral capsule) Procedures Performed Colonoscopy (07/07/2022), Total knee arthroplasty (01/03/2022), Cardiac catheterization, left heart (12/17/2021), left needle localized breast biopsy (08/22/2012), Breast biopsy and related procedures (01/2002), HEEL SPUR REMOVAL. What to do next Scheduled Follow-Up Appointments Monday 10:40 AM EDT Where: [facility] [place] Normal [address] [place] [phone] \.br\ Medications\.br\ What How Much When Instructions\.br\ Unchanged albuterol (Albuterol (Eqv-ProAir HFA) 90 mcg/ inh inhalation aerosol) 2 Puffs Inhalation 4 times a day as needed for Wheezing\.br\ Unchanged albuterol (albuterol 0.083% Inh Robyn 3 mL) 0.083% - 3mL dosing units Inhalation Every 6 hours as needed for Wheezing\.br\ Unchanged ascorbic acid (Vitamin C 500 mg oral tablet, chewable) 1 Tablets Chewed Every day\.br\ Unchanged budesonide (budesonide 0.5 mg/ 2 mL Inh Susp) 2 Milliliter Nebulized inhalation (aerosol) 2 times a day\.br\ Unchanged calcium-vitamin D (calcium-vitamin D 200 mg-250 intl units oral tablet) 1 Tablets By Mouth 2 times a day\.br\ Unchanged cetirizine (cetirizine 10 mg Tab) 1 Tablets By Mouth Every day\.br\ Unchanged cholecalciferol (Vitamin D 1000 intl units Tab) 1 Tablets By Mouth Every day\.br\ Unchanged escitalopram (escitalopram 20 mg Tab) 1 Tablets By Mouth Every day\.br\ Unchanged fluticasone nasal (Flonase 0.05 mg/ inh [place]) 2 Sprays Nasal Inhalation Every day each nostril \.br\ Unchanged gabapentin (gabapentin 300 mg Cap) 1 Capsules By Mouth 3 times a day\.br\ Unchanged hydrOXYzine (hydrOXYzine hydrochloride 25 mg Tab) 1 Tablets By Mouth 4 times a day as needed for as needed for itching\.br\ Unchanged Misc Prescription (Handicapped Parking Placard) 0 5 year duration \.br\ Unchanged montelukast (Singulair 10 mg Tab) 1 Tablets By Mouth Once a day (in the evening)\.br\ Unchanged omega-3 polyunsaturated fatty acids (Fish Oil 500 mg oral capsule) 2 Capsules By Mouth 2 times a day\.br\ Allergies\.br\ Anaprox (Nausea)\.br\ amoxicillin (Rash)\.br\ codeine (Lightheaded, Nausea with Vomiting)\.br\ Problems\.br\ Ongoing - Any problem that you are currently receiving treatment for.\.br\ Abnormal ECG\.br\ Allergic rhinitis, seasonal\.br\ Asthma, moderate persistent\.br\ B12 nutritional deficiency\.br\ BMI 35.0-35.9,adult\. br\ Diastolic dysfunction without heart failure\.br\ External hemorrhoids\.br\ Family history of colon cancer\.br\ Hyperlipemia, mixed\.br\ Influenza vaccination declined\.br\ Moderate recurrent major depression\.br\ Obesity due to excess calories\.br\ Onychomycosis of left great toe\.br\ Other insomnia\.br\ Perennial allergic rhinitis\.br\ Sensory peripheral neuropathy\.br\ Historical - Any problem that you are no longer receiving treatment for.\.br\ Artificial menopause\.br\ Atrophic vaginitis\.br\ Breast cancer screening by mammogram\.br\ Colon cancer screening\.br\ COVID-19 vaccine series started\.br\ Knee pain\.br\ Lumbar back pain\.br\ Menopausal syndrome\.br\ Osteoporosis of lumbar spine\.br\ \.br\ [facility] Nurse Consultation Noteon Nurse Consultation Note Reason for Visit Allergy injection Medications Albuterol (Eqv-ProAir HFA) 90 mcg/inh inhalation aerosol, 2 puff(s), Inhalation, QID, PRN, 2 refills albuterol 0.083% Inh Robyn 3 mL, 0.083% - 3mL dosing units, Inhalation, q6hr, PRN, 2 refills budesonide 0.5 mg/2 mL Inh Susp, 0.5 mg= 2 mL, NEB, BID, 1 refills calcium-vitamin D 200 mg-250 intl units oral tablet, 1 tab(s), Oral, BID cetirizine 10 mg Tab, 10 mg= 1 tab(s), Oral, Daily escitalopram 20 mg Tab, 20 mg= 1 tab(s), Oral, Daily, 1 refills Fish Oil 500 mg oral capsule, 1000 mg= 2 cap(s), Oral, BID Flonase 0.05 mg/inh [place], 2 spray(s), Nasal, Daily gabapentin 300 mg Cap, 300 mg= 1 cap(s), Oral, TID Handicapped Parking Placard, 0 hydrOXYzine hydrochloride 25 mg Tab, 25 mg= 1 tab(s), Oral, QID, PRN, 1 refills Singulair 10 mg Tab, 10 mg= 1 tab(s), Oral, qPM, 1 refills Vitamin C 500 mg oral tablet, chewable, 500 mg= 1 tab(s), Chewed, Daily Vitamin D 1000 intl units Tab, 25 mcg= 1 tab(s), Oral, Daily Allergies Anaprox (Nausea) amoxicillin (Rash) codeine (Lightheaded, Nausea with Vomiting) Immunizations Vaccine Date Status Comments influenza virus vaccine, inactivated - Not Given Postpone due to refusal influenza virus vaccine, inactivated - Not Given Postpone due to refusal influenza virus vaccine, inactivated - Not Given Postpone due to refusal pneumococcal 23-valent vaccine - Not Given Postpone due to refusal SARS-CoV-2 (COVID-19) mRNA-1273 vaccine 06/15/2021 Recorded SARS-CoV-2 (COVID-19) mRNA-1273 vaccine 10/06/2020 Recorded 2022-11-23: 60 SARS-CoV-2 (COVID-19) mRNA-1273 vaccine 09/26/2020 Recorded SARS-CoV-2 (COVID-19) mRNA-1273 vaccine 09/08/2020 Recorded pneumococcal 23-valent vaccine 04/07/2005 Recorded Normal [facility] Nurse Consultation Noteon Nurse Consultation Note Reason for Visit allergy injection gvn Medications Albuterol (Eqv-ProAir HFA) 90 mcg/inh inhalation aerosol, 2 puff(s), Inhalation, QID, PRN, 2 refills albuterol 0.083% Inh Robyn 3 mL, 0.083% - 3mL dosing units, Inhalation, q6hr, PRN, 2 refills budesonide 0.5 mg/2 mL Inh Susp, 0.5 mg= 2 mL, NEB, BID, 1 refills calcium-vitamin D 200 mg-250 intl units oral tablet, 1 tab(s), Oral, BID cetirizine 10 mg Tab, 10 mg= 1 tab(s), Oral, Daily escitalopram 20 mg Tab, 20 mg= 1 tab(s), Oral, Daily, 1 refills Fish Oil 500 mg oral capsule, 1000 mg= 2 cap(s), Oral, BID Flonase 0.05 mg/inh [place], 2 spray(s), Nasal, Daily gabapentin 300 mg Cap, 300 mg= 1 cap(s), Oral, TID Handicapped Parking Placard, 0 hydrOXYzine hydrochloride 25 mg Tab, 25 mg= 1 tab(s), Oral, QID, PRN, 1 refills Singulair 10 mg Tab, 10 mg= 1 tab(s), Oral, qPM, 1 refills Vitamin C 500 mg oral tablet, chewable, 500 mg= 1 tab(s), Chewed, Daily Vitamin D 1000 intl units Tab, 25 mcg= 1 tab(s), Oral, Daily Allergies Anaprox (Nausea) amoxicillin (Rash) codeine (Lightheaded, Nausea with Vomiting) Immunizations Vaccine Date Status Comments influenza virus vaccine, inactivated - Not Given Postpone due to refusal influenza virus vaccine, inactivated - Not Given Postpone due to refusal influenza virus vaccine, inactivated - Not Given Postpone due to refusal pneumococcal 23-valent vaccine - Not Given Postpone due to refusal SARS-CoV-2 (COVID-19) mRNA-1273 vaccine 06/15/2021 Recorded SARS-CoV-2 (COVID-19) mRNA-1273 vaccine 10/06/2020 Recorded 2022-11-23: 60 SARS-CoV-2 (COVID-19) mRNA-1273 vaccine 09/26/2020 Recorded SARS-CoV-2 (COVID-19) mRNA-1273 vaccine 09/08/2020 Recorded pneumococcal 23-valent vaccine 04/07/2005 Recorded Normal [facility] Ambulatory Visit Summaryon 0 01-30-2023 Ambulatory Visit Summary ANGELA ALONZO :1955 Visit Date:01/30/2023 Ambulatory Visit Instructions Your Diagnosis Allergic rhinitis, seasonal Your Care Team Attending Physician - RITU HALL, Vikram Primary Care Physician - RITU HALL FAARICHARD, Esperanza Carmichael This Is Your Medications [place] [facility] [place]Handicapped Parking Placard) albuterol (Albuterol (Eqv-ProAir HFA) 90 mcg/inh inhalation aerosol) albuterol (albuterol 0.083% Inh Robyn 3 mL) ascorbic acid (Vitamin C 500 mg oral tablet, chewable) budesonide (budesonide 0.5 mg/2 mL Inh Susp) calcium-vitamin D (calcium-vitamin D 200 mg-250 intl units oral tablet) cetirizine (cetirizine 10 mg Tab) cholecalciferol (Vitamin D 1000 intl units Tab) escitalopram (escitalopram 20 mg Tab) fluticasone nasal (Flonase 0.05 mg/inh [place]) gabapentin (gabapentin 100 mg Cap) hydrOXYzine (hydrOXYzine hydrochloride 25 mg Tab) montelukast (Singulair 10 mg Tab) omega-3 polyunsaturated fatty acids (Fish Oil 500 mg oral capsule) Procedures Performed Colonoscopy (07/07/2022), Total knee arthroplasty (01/03/2022), Cardiac catheterization, left heart (12/17/2021), left needle localized breast biopsy (08/22/2012), Breast biopsy and related procedures (01/2002), HEEL SPUR REMOVAL. What to do next Scheduled Follow-Up Appointments Monday 10:40 AM EDT Where: [facility] [place] Normal [address] [place] [phone] \.br\ Medications\.br\ What How Much When Instructions\.br\ Unchanged albuterol (Albuterol (Eqv-ProAir HFA) 90 mcg/ inh inhalation aerosol) 2 Puffs Inhalation 4 times a day as needed for Wheezing\.br\ Unchanged albuterol (albuterol 0.083% Inh Robyn 3 mL) 0.083% - 3mL dosing units Inhalation Every 6 hours as needed for Wheezing\.br\ Unchanged ascorbic acid (Vitamin C 500 mg oral tablet, chewable) 1 Tablets Chewed Every day\.br\ Unchanged budesonide (budesonide 0.5 mg/ 2 mL Inh Susp) 2 Milliliter Nebulized inhalation (aerosol) 2 times a day\.br\ Unchanged calcium-vitamin D (calcium-vitamin D 200 mg-250 intl units oral tablet) 1 Tablets By Mouth 2 times a day\.br\ Unchanged cetirizine (cetirizine 10 mg Tab) 1 Tablets By Mouth Every day\.br\ Unchanged cholecalciferol (Vitamin D 1000 intl units Tab) 1 Tablets By Mouth Every day\.br\ Unchanged escitalopram (escitalopram 20 mg Tab) 1 Tablets By Mouth Every day\.br\ Unchanged fluticasone nasal (Flonase 0.05 mg/ inh [place]) 2 Sprays Nasal Inhalation Every day each nostril \.br\ Unchanged gabapentin (gabapentin 100 mg Cap) 1 Capsules By Mouth 3 times a day\.br\ Unchanged hydrOXYzine (hydrOXYzine hydrochloride 25 mg Tab) 1 Tablets By Mouth 4 times a day as needed for as needed for itching\.br\ Unchanged Misc Prescription (Handicapped Parking Placard) 0 5 year duration \.br\ Unchanged montelukast (Singulair 10 mg Tab) 1 Tablets By Mouth Once a day (in the evening)\.br\ Unchanged omega-3 polyunsaturated fatty acids (Fish Oil 500 mg oral capsule) 2 Capsules By Mouth 2 times a day\.br\ Allergies\.br\ Anaprox (Nausea)\.br\ amoxicillin (Rash)\.br\ codeine (Lightheaded, Nausea with Vomiting)\.br\ Problems\.br\ Ongoing - Any problem that you are currently receiving treatment for.\.br\ Abnormal ECG\.br\ Allergic rhinitis, seasonal\.br\ Asthma, moderate persistent\.br\ B12 nutritional deficiency\.br\ BMI 35.0-35.9,adult\. br\ Diastolic dysfunction without heart failure\.br\ External hemorrhoids\.br\ Family history of colon cancer\.br\ Hyperlipemia, mixed\.br\ Influenza vaccination declined\.br\ Moderate recurrent major depression\.br\ Obesity due to excess calories\.br\ Onychomycosis of left great toe\.br\ Other insomnia\.br\ Perennial allergic rhinitis\.br\ Sensory peripheral neuropathy\.br\ Historical - Any problem that you are no longer receiving treatment for.\.br\ Artificial menopause\.br\ Atrophic vaginitis\.br\ Breast cancer screening by mammogram\.br\ Colon cancer screening\.br\ COVID-19 vaccine series started\.br\ Knee pain\.br\ Lumbar back pain\.br\ Menopausal syndrome\.br\ Osteoporosis of lumbar spine\.br\ \.br\ [facility] Nurse Consultation Noteon Nurse Consultation Note Reason for Visit Allergy injections Medications Albuterol (Eqv-ProAir HFA) 90 mcg/inh inhalation aerosol, 2 puff(s), Inhalation, QID, PRN, 2 refills albuterol 0.083% Inh Robyn 3 mL, 0.083% - 3mL dosing units, Inhalation, q6hr, PRN, 2 refills budesonide 0.5 mg/2 mL Inh Susp, 0.5 mg= 2 mL, NEB, BID, 1 refills calcium-vitamin D 200 mg-250 intl units oral tablet, 1 tab(s), Oral, BID cetirizine 10 mg Tab, 10 mg= 1 tab(s), Oral, Daily escitalopram 20 mg Tab, 20 mg= 1 tab(s), Oral, Daily, 1 refills Fish Oil 500 mg oral capsule, 1000 mg= 2 cap(s), Oral, BID Flonase 0.05 mg/inh [place], 2 spray(s), Nasal, Daily gabapentin 100 mg Cap, 100 mg= 1 cap(s), Oral, TID Handicapped Parking Placard, 0 hydrOXYzine hydrochloride 25 mg Tab, 25 mg= 1 tab(s), Oral, QID, PRN, 1 refills Singulair 10 mg Tab, 10 mg= 1 tab(s), Oral, qPM, 1 refills Vitamin C 500 mg oral tablet, chewable, 500 mg= 1 tab(s), Chewed, Daily Vitamin D 1000 intl units Tab, 25 mcg= 1 tab(s), Oral, Daily Allergies Anaprox (Nausea) amoxicillin (Rash) codeine (Lightheaded, Nausea with Vomiting) Immunizations Vaccine Date Status Comments influenza virus vaccine, inactivated - Not Given Postpone due to refusal influenza virus vaccine, inactivated - Not Given Postpone due to refusal influenza virus vaccine, inactivated - Not Given Postpone due to refusal pneumococcal 23-valent vaccine - Not Given Postpone due to refusal SARS-CoV-2 (COVID-19) mRNA-1273 vaccine 06/15/2021 Recorded SARS-CoV-2 (COVID-19) mRNA-1273 vaccine 10/06/2020 Recorded 2022-11-23: 60 SARS-CoV-2 (COVID-19) mRNA-1273 vaccine 09/26/2020 Recorded SARS-CoV-2 (COVID-19) mRNA-1273 vaccine 09/08/2020 Recorded pneumococcal 23-valent vaccine 04/07/2005 Recorded Normal [facility] Ambulatory Visit Summaryon 0 01-16-2023 Ambulatory Visit Summary ALONZOANGELA Elvin :1955 Visit Date:01/16/2023 Ambulatory Visit Instructions Your Diagnosis Perennial allergic rhinitis Your Care Team Attending Physician - Esperanza CHANEY MD, FAAFP Primary Care Physician - Esperanza CHANEY MD, FAAFP This Is Your Medications [place] [facility] [place] (Handicapped Parking Placard) albuterol (Albuterol (Eqv-ProAir HFA) 90 mcg/inh inhalation aerosol) albuterol (albuterol 0.083% Inh Robyn 3 mL) ascorbic acid (Vitamin C 500 mg oral tablet, chewable) budesonide (budesonide 0.5 mg/2 mL Inh Susp) calcium-vitamin D (calcium-vitamin D 200 mg-250 intl units oral tablet) cetirizine (cetirizine 10 mg Tab) cholecalciferol (Vitamin D 1000 intl units Tab) escitalopram (escitalopram 20 mg Tab) fluticasone nasal (Flonase 0.05 mg/inh [place]) gabapentin (gabapentin 100 mg Cap) hydrOXYzine (hydrOXYzine hydrochloride 25 mg Tab) montelukast (Singulair 10 mg Tab) omega-3 polyunsaturated fatty acids (Fish Oil 500 mg oral capsule) Procedures Performed Colonoscopy (07/07/2022), Total knee arthroplasty (01/03/2022), Cardiac catheterization, left heart (12/17/2021), left needle localized breast biopsy (08/22/2012), Breast biopsy and related procedures (01/2002), HEEL SPUR REMOVAL. What to do next Scheduled Follow-Up Appointments Monday 10:40 AM EDT Where: [facility] Normal [address] [place], [place] [id number]- \.br\ Medications\.br\ What How Much When Instructions\.br\ Unchanged albuterol (Albuterol (Eqv-ProAir HFA) 90 mcg/ inh inhalation aerosol) 2 Puffs Inhalation 4 times a day as needed for Wheezing\.br\ Unchanged albuterol (albuterol 0.083% Inh Robyn 3 mL) 0.083% - 3mL dosing units Inhalation Every 6 hours as needed for Wheezing\.br\ Unchanged ascorbic acid (Vitamin C 500 mg oral tablet, chewable) 1 Tablets Chewed Every day\.br\ Unchanged budesonide (budesonide 0.5 mg/ 2 mL Inh Susp) 2 Milliliter Nebulized inhalation (aerosol) 2 times a day\.br\ Unchanged calcium-vitamin D (calcium-vitamin D 200 mg-250 intl units oral tablet) 1 Tablets By Mouth 2 times a day\.br\ Unchanged cetirizine (cetirizine 10 mg Tab) 1 Tablets By Mouth Every day\.br\ Unchanged cholecalciferol (Vitamin D 1000 intl units Tab) 1 Tablets By Mouth Every day\.br\ Unchanged escitalopram (escitalopram 20 mg Tab) 1 Tablets By Mouth Every day\.br\ Unchanged fluticasone nasal (Flonase 0.05 mg/ inh [place]) 2 Sprays Nasal Inhalation Every day each nostril \.br\ Unchanged gabapentin (gabapentin 100 mg Cap) 1 Capsules By Mouth 3 times a day\.br\ Unchanged hydrOXYzine (hydrOXYzine hydrochloride 25 mg Tab) 1 Tablets By Mouth 4 times a day as needed for as needed for itching\.br\ Unchanged Misc Prescription (Handicapped Parking Placard) 0 5 year duration \.br\ Unchanged montelukast (Singulair 10 mg Tab) 1 Tablets By Mouth Once a day (in the evening)\.br\ Unchanged omega-3 polyunsaturated fatty acids (Fish Oil 500 mg oral capsule) 2 Capsules By Mouth 2 times a day\.br\ Medications and Immunizations Administered\.br\ Given\.br\ Patient Specific Meds, 0.5 mL, SubCutaneous. For: Perennial allergic rhinitis\.br\ Allergies\.br\ Anaprox (Nausea)\.br\ amoxicillin (Rash)\.br\ codeine (Lightheaded, Nausea with Vomiting)\.br\ Problems\.br\ Ongoing - Any problem that you are currently receiving treatment for.\.br\ Abnormal ECG\.br\ Allergic rhinitis, seasonal\.br\ Asthma, moderate persistent\.br\ B12 nutritional deficiency\.br\ BMI 35.0-35.9,adult\. br\ Diastolic dysfunction without heart failure\.br\ External hemorrhoids\.br\ Family history of colon cancer\.br\ Hyperlipemia, mixed\.br\ Influenza vaccination declined\.br\ Moderate recurrent major depression\.br\ Obesity due to excess calories\.br\ Onychomycosis of left great toe\.br\ Other insomnia\.br\ Perennial allergic rhinitis\.br\ Sensory peripheral neuropathy\.br\ Historical - Any problem that you are no longer receiving treatment for.\.br\ Artificial menopause\.br\ Atrophic vaginitis\.br\ Breast cancer screening by mammogram\.br\ Colon cancer screening\.br\ COVID-19 vaccine series started\.br\ Knee pain\.br\ Lumbar back pain\.br\ Menopausal syndrome\.br\ Osteoporosis of lumbar spine\.br\ \.br\ [facility] Nurse Consultation Noteon Nurse Consultation Note Reason for Visit Allergy injection Medications Albuterol (Eqv-ProAir HFA) 90 mcg/inh inhalation aerosol, 2 puff(s), Inhalation, QID, PRN, 2 refills albuterol 0.083% Inh Robyn 3 mL, 0.083% - 3mL dosing units, Inhalation, q6hr, PRN, 2 refills budesonide 0.5 mg/2 mL Inh Susp, 0.5 mg= 2 mL, NEB, BID, 1 refills calcium-vitamin D 200 mg-250 intl units oral tablet, 1 tab(s), Oral, BID cetirizine 10 mg Tab, 10 mg= 1 tab(s), Oral, Daily escitalopram 20 mg Tab, 20 mg= 1 tab(s), Oral, Daily, 1 refills Fish Oil 500 mg oral capsule, 1000 mg= 2 cap(s), Oral, BID Flonase 0.05 mg/inh [place], 2 spray(s), Nasal, Daily gabapentin 100 mg Cap, 100 mg= 1 cap(s), Oral, TID Handicapped Parking Placard, 0 hydrOXYzine hydrochloride 25 mg Tab, 25 mg= 1 tab(s), Oral, QID, PRN, 1 refills Singulair 10 mg Tab, 10 mg= 1 tab(s), Oral, qPM, 1 refills Vitamin C 500 mg oral tablet, chewable, 500 mg= 1 tab(s), Chewed, Daily Vitamin D 1000 intl units Tab, 25 mcg= 1 tab(s), Oral, Daily Allergies Anaprox (Nausea) amoxicillin (Rash) codeine (Lightheaded, Nausea with Vomiting) Immunizations Vaccine Date Status Comments influenza virus vaccine, inactivated - Not Given Postpone due to refusal influenza virus vaccine, inactivated - Not Given Postpone due to refusal influenza virus vaccine, inactivated - Not Given Postpone due to refusal pneumococcal 23-valent vaccine - Not Given Postpone due to refusal SARS-CoV-2 (COVID-19) mRNA-1273 vaccine 06/15/2021 Recorded SARS-CoV-2 (COVID-19) mRNA-1273 vaccine 10/06/2020 Recorded 2022-11-23: 60 SARS-CoV-2 (COVID-19) mRNA-1273 vaccine 09/26/2020 Recorded SARS-CoV-2 (COVID-19) mRNA-1273 vaccine 09/08/2020 Recorded pneumococcal 23-valent vaccine 04/07/2005 Recorded Normal [facility] Ambulatory Visit Summaryon 0 01-09-2023 Ambulatory Visit Summary ANGELA ALONZO Elvin :1955 Visit Date:01/09/2023 Ambulatory Visit Instructions Your Diagnosis B12 nutritional deficiency Your Care Team Attending Physician - Esperanza CHANEY MD, FAAFP Primary Care Physician - Esperanza CHANEY MD, FAAFP This Is Your Medications List Misc Prescription (Handicapped Parking Placard) albuterol (Albuterol (Eqv-ProAir HFA) 90 mcg/inh inhalation aerosol) albuterol (albuterol 0.083% Inh Robyn 3 mL) ascorbic acid (Vitamin C 500 mg oral tablet, chewable) budesonide (budesonide 0.5 mg/2 mL Inh Susp) calcium-vitamin D (calcium-vitamin D 200 mg-250 intl units oral tablet) cetirizine (cetirizine 10 mg Tab) cholecalciferol (Vitamin D 1000 intl units Tab) escitalopram (escitalopram 20 mg Tab) fluticasone nasal (Flonase 0.05 mg/inh [place]) hydrOXYzine (hydrOXYzine hydrochloride 25 mg Tab) montelukast (Singulair 10 mg Tab) omega-3 polyunsaturated fatty acids (Fish Oil 500 mg oral capsule) Procedures Performed Colonoscopy (07/07/2022), Total knee arthroplasty (01/03/2022), Cardiac catheterization, left heart (12/17/2021), left needle localized breast biopsy (08/22/2012), Breast biopsy and related procedures (01/2002), HEEL SPUR REMOVAL. What to do next Scheduled Follow-Up Appointments Monday 10:40 AM EDT Where: [facility] [place] [phone]- \.br\ Medications\.br\ What How Much When Instructions\.br\ Unchanged albuterol (Albuterol (Eqv-ProAir HFA) 90 mcg/ inh inhalation aerosol) 2 Puffs Inhalation 4 times a day as needed for Wheezing\.br\ Unchanged albuterol (albuterol 0.083% Inh Robyn 3 mL) 0.083% - 3mL dosing units Inhalation Every 6 hours as needed for Wheezing\.br\ Unchanged ascorbic acid (Vitamin C 500 mg oral tablet, chewable) 1 Tablets Chewed Every day\.br\ Unchanged budesonide (budesonide 0.5 mg/ 2 mL Inh Susp) 2 Milliliter Nebulized inhalation (aerosol) 2 times a day\.br\ Unchanged calcium-vitamin D (calcium-vitamin D 200 mg-250 intl units oral tablet) 1 Tablets By Mouth 2 times a day\.br\ Unchanged cetirizine (cetirizine 10 mg Tab) 1 Tablets By Mouth Every day\.br\ Unchanged cholecalciferol (Vitamin D 1000 intl units Tab) 1 Tablets By Mouth Every day\.br\ Unchanged escitalopram (escitalopram 20 mg Tab) 1 Tablets By Mouth Every day\.br\ Unchanged fluticasone nasal (Flonase 0.05 mg/ inh [place]) 2 Sprays Nasal Inhalation Every day each nostril \.br\ Unchanged hydrOXYzine (hydrOXYzine hydrochloride 25 mg Tab) 1 Tablets By Mouth 4 times a day as needed for as needed for itching\.br\ Unchanged Misc Prescription (Handicapped Parking Placard) 0 5 year duration \.br\ Unchanged montelukast (Singulair 10 mg Tab) 1 Tablets By Mouth Once a day (in the evening)\.br\ Unchanged omega-3 polyunsaturated fatty acids (Fish Oil 500 mg oral capsule) 2 Capsules By Mouth 2 times a day\.br\ Allergies\.br\ Anaprox (Nausea)\.br\ amoxicillin (Rash)\.br\ codeine (Lightheaded, Nausea with Vomiting)\.br\ Problems\.br\ Ongoing - Any problem that you are currently receiving treatment for.\.br\ Abnormal ECG\.br\ Allergic rhinitis, seasonal\.br\ Asthma, moderate persistent\.br\ B12 nutritional deficiency\.br\ BMI 35.0-35.9,adult\. br\ Diastolic dysfunction without heart failure\.br\ External hemorrhoids\.br\ Family history of colon cancer\.br\ Hyperlipemia, mixed\.br\ Influenza vaccination declined\.br\ Moderate recurrent major depression\.br\ Obesity due to excess calories\.br\ Onychomycosis of left great toe\.br\ Other insomnia\.br\ Perennial allergic rhinitis\.br\ Sensory peripheral neuropathy\.br\ Historical - Any problem that you are no longer receiving treatment for.\.br\ Artificial menopause\.br\ Atrophic vaginitis\.br\ Breast cancer screening by mammogram\.br\ Colon cancer screening\.br\ COVID-19 vaccine series started\.br\ Knee pain\.br\ Lumbar back pain\.br\ Menopausal syndrome\.br\ Osteoporosis of lumbar spine\.br\ \.br\ [facility] CHEMISTRYOrdered By: SYSTEM SYSTEM on 01-09-2023 Cobalamin (Vitamin B12) [Mass/Vol] 570 pg/mL Normal 50 - 1500 pg/mL [facility] Remisol Vit B12on 01-09-2023 Cobalamin (Vitamin B12) [Mass/Vol] 570 pg/mL Normal 50-1500 [facility] Comment on above: Performed By: #### [id number] ####[facility] [id number] [place] [address] Consultation Noteon 01-04-20 Consultation Note [id number] Normal [facility] Ambulatory Visit Summaryon 0 01-02-2023 Ambulatory Visit Summary ANGELA ALONZO Elvin :1955 Visit Date:01/02/2023 Ambulatory Visit Instructions Your Diagnosis Allergic rhinitis, seasonal Your Care Team Attending Physician - Esperanza CHANEY MD, FAAFP Primary Care Physician - Esperanza CHANEY MD, FAAFP This Is Your Medications [place] [facility] [place] (Handicapped Parking Placard) albuterol (Albuterol (Eqv-ProAir HFA) 90 mcg/inh inhalation aerosol) albuterol (albuterol 0.083% Inh Robyn 3 mL) ascorbic acid (Vitamin C 500 mg oral tablet, chewable) budesonide (budesonide 0.5 mg/2 mL Inh Susp) calcium-vitamin D (calcium-vitamin D 200 mg-250 intl units oral tablet) cetirizine (cetirizine 10 mg Tab) cholecalciferol (Vitamin D 1000 intl units Tab) escitalopram (escitalopram 20 mg Tab) fluticasone nasal (Flonase 0.05 mg/inh [place]) hydrOXYzine (hydrOXYzine hydrochloride 25 mg Tab) montelukast (Singulair 10 mg Tab) omega-3 polyunsaturated fatty acids (Fish Oil 500 mg oral capsule) Procedures Performed Colonoscopy (07/07/2022), Total knee arthroplasty (01/03/2022), Cardiac catheterization, left heart (12/17/2021), left needle localized breast biopsy (08/22/2012), Breast biopsy and related procedures (01/2002), HEEL SPUR REMOVAL. What to do next Scheduled Follow-Up Appointments Monday 10:40 AM EDT Where: [address] [id number]- \.br\ Medications\.br\ What How Much When Instructions\.br\ Unchanged albuterol (Albuterol (Eqv-ProAir HFA) 90 mcg/ inh inhalation aerosol) 2 Puffs Inhalation 4 times a day as needed for Wheezing\.br\ Unchanged albuterol (albuterol 0.083% Inh Robyn 3 mL) 0.083% - 3mL dosing units Inhalation Every 6 hours as needed for Wheezing\.br\ Unchanged ascorbic acid (Vitamin C 500 mg oral tablet, chewable) 1 Tablets Chewed Every day\.br\ Unchanged budesonide (budesonide 0.5 mg/ 2 mL Inh Susp) 2 Milliliter Nebulized inhalation (aerosol) 2 times a day\.br\ Unchanged calcium-vitamin D (calcium-vitamin D 200 mg-250 intl units oral tablet) 1 Tablets By Mouth 2 times a day\.br\ Unchanged cetirizine (cetirizine 10 mg Tab) 1 Tablets By Mouth Every day\.br\ Unchanged cholecalciferol (Vitamin D 1000 intl units Tab) 1 Tablets By Mouth Every day\.br\ Unchanged escitalopram (escitalopram 20 mg Tab) 1 Tablets By Mouth Every day\.br\ Unchanged fluticasone nasal (Flonase 0.05 mg/ inh [place]) 2 Sprays Nasal Inhalation Every day each nostril \.br\ Unchanged hydrOXYzine (hydrOXYzine hydrochloride 25 mg Tab) 1 Tablets By Mouth 4 times a day as needed for as needed for itching\.br\ Unchanged Misc Prescription (Handicapped Parking Placard) 0 5 year duration \.br\ Unchanged montelukast (Singulair 10 mg Tab) 1 Tablets By Mouth Once a day (in the evening)\.br\ Unchanged omega-3 polyunsaturated fatty acids (Fish Oil 500 mg oral capsule) 2 Capsules By Mouth 2 times a day\.br\ Allergies\.br\ Anaprox (Nausea)\.br\ amoxicillin (Rash)\.br\ codeine (Lightheaded, Nausea with Vomiting)\.br\ Problems\.br\ Ongoing - Any problem that you are currently receiving treatment for.\.br\ Abnormal ECG\.br\ Allergic rhinitis, seasonal\.br\ Asthma, moderate persistent\.br\ BMI 35.0-35.9,adult\. br\ Diastolic dysfunction without heart failure\.br\ External hemorrhoids\.br\ Family history of colon cancer\.br\ Hyperlipemia, mixed\.br\ Influenza vaccination declined\.br\ Moderate recurrent major depression\.br\ Obesity due to excess calories\.br\ Onychomycosis of left great toe\.br\ Other insomnia\.br\ Perennial allergic rhinitis\.br\ Sensory peripheral neuropathy\.br\ Historical - Any problem that you are no longer receiving treatment for.\.br\ Artificial menopause\.br\ Atrophic vaginitis\.br\ Breast cancer screening by mammogram\.br\ Colon cancer screening\.br\ COVID-19 vaccine series started\.br\ Knee pain\.br\ Lumbar back pain\.br\ Menopausal syndrome\.br\ Osteoporosis of lumbar spine\.br\ \.br\ [facility] Nurse Consultation Noteon Nurse Consultation Note Reason for Visit labs Medications Albuterol (Eqv-ProAir HFA) 90 mcg/inh inhalation aerosol, 2 puff(s), Inhalation, QID, PRN, 2 refills albuterol 0.083% Inh Robyn 3 mL, 0.083% - 3mL dosing units, Inhalation, q6hr, PRN, 2 refills budesonide 0.5 mg/2 mL Inh Susp, 0.5 mg= 2 mL, NEB, BID, 1 refills calcium-vitamin D 200 mg-250 intl units oral tablet, 1 tab(s), Oral, BID cetirizine 10 mg Tab, 10 mg= 1 tab(s), Oral, Daily escitalopram 20 mg Tab, 20 mg= 1 tab(s), Oral, Daily, 1 refills Fish Oil 500 mg oral capsule, 1000 mg= 2 cap(s), Oral, BID Flonase 0.05 mg/inh [place], 2 spray(s), Nasal, Daily Handicapped Parking Placard, 0 hydrOXYzine hydrochloride 25 mg Tab, 25 mg= 1 tab(s), Oral, QID, PRN, 1 refills Singulair 10 mg Tab, 10 mg= 1 tab(s), Oral, qPM, 1 refills Vitamin C 500 mg oral tablet, chewable, 500 mg= 1 tab(s), Chewed, Daily Vitamin D 1000 intl units Tab, 25 mcg= 1 tab(s), Oral, Daily Allergies Anaprox (Nausea) amoxicillin (Rash) codeine (Lightheaded, Nausea with Vomiting) Immunizations Vaccine Date Status Comments influenza virus vaccine, inactivated - Not Given Postpone due to refusal influenza virus vaccine, inactivated - Not Given Postpone due to refusal influenza virus vaccine, inactivated - Not Given Postpone due to refusal pneumococcal 23-valent vaccine - Not Given Postpone due to refusal SARS-CoV-2 (COVID-19) mRNA-1273 vaccine 06/15/2021 Recorded SARS-CoV-2 (COVID-19) mRNA-1273 vaccine 10/06/2020 Recorded 2022-11-23: 60 SARS-CoV-2 (COVID-19) mRNA-1273 vaccine 09/26/2020 Recorded SARS-CoV-2 (COVID-19) mRNA-1273 vaccine 09/08/2020 Recorded pneumococcal 23-valent vaccine 04/07/2005 Recorded Normal [facility] BLOOD BANKOrdered By: Eron Eubanks on 01-03-2022 ABO/Rh Interp Positive Invalid Interpretation Code [facility] BB Subsection ABSC Gel Interp Negative (01/03/22 7:49 AM) Normal [facility] BB Subsection CHEMISTRYOrdered By: SYSTEM SYSTEM on 12-13-2021 Anion gap [Moles/Vol] 11 mmol/L Normal 6 - 16 mEq/L [facility] Remisol Calcium [Mass/Vol] 9.9 mg/dL Normal 8.9 - 11.1 mg/dL [facility] Chloride [Moles/Vol] 104 mmol/L Normal 101 - 111 mmol/ L [facility] Remisol CO2 [Moles/Vol] 26 mmol/L Normal 21 - 31 mmol/L [facility] Creatinine [Mass/Vol] 0.8 mg/dL Normal 0.5 - 1.3 mg/dL [facility] GFR/1.73 sq M.predicted among blacks MDRD (S/P/Bld) [Vol rate/Area] mL/min/1.73 m2 Normal >=59mL/min/1.73 m2 [facility] Chem S GFR/1.73 sq M.predicted among non-blacks MDRD (S/P/Bld) [Vol rate/Area] mL/min/1.73 m2 Normal >=59mL/min/1.73 m2 [facility] Chem S Glucose [Mass/Vol] 103 mg/dL Normal 55 - 199 mg/dL [facility] Remisol Potassium [Moles/Vol] 4.2 mmol/L Normal 3.5 - 5.3 mmol/L [facility] Remisol Sodium [Moles/Vol] 137 mmol/L Normal 135 - 145 mmol/L [facility] Remisol Urea nitrogen [Mass/Vol] 21 mg/dL Normal 5 - 21 mg/dL [facility] Remisol Urea nitrogen/Creatinine [Mass ratio] 26 mg/mg High 10 - 20 [facility] Remisol HEMATOLOGYOrdered By: SYSTEM SYSTEM on 12-13-2021 Basophils/100 WBC (Bld) 0.2 % Normal 0.0 - 2.0 % [facility] HemeAutoSS Basophils/Leukocytes Auto (Bld) [Pure # fraction] 0.0 E9/L Normal 0.0 - 0.2 E9/L [facility] HemeAutoSS Eosinophils/100 WBC (Bld) 0.3 % Normal 0.0 - 8.0 % [facility] HemeAutoSS Eosinophils/Leukocyt es Auto (Bld) [Pure # fraction] 0.0 E9/L Normal 0.0 - 0.5 E9/L [facility] HemeAutoSS Lymphocytes/100 WBC (Bld) 11.0 % Low 14.0 - 50.0 % [facility] HemeAutoSS Lymphocytes/Leukocyt es Auto (Bld) [Pure # fraction] 1.1 E9/L Normal 1.0 - 4.0 E9/L [facility] HemeAutoSS Monocytes/100 WBC (Bld) 3.8 % Low 4.0 - 14.0 % [facility] HemeAutoSS Monocytes/Leukocytes Auto (Bld) [Pure # fraction] 0.4 E9/L Normal 0.2 - 1.0 E9/L [facility] HemeAutoSS Neutrophils/100 WBC (Bld) 84.7 % High 36.0 - 75.0 % [facility] HemeAutoSS Neutrophils/Leukocyt es Auto (Bld) [Pure # fraction] 8.6 E9/L High 2.0 - 7.5 E9/L [facility] HemeAutoSS HEMATOLOGYOrdered By: Su Meeks on 12-13-2021 Erythrocyte distribution width (RBC) [Ratio] 14.5 % High 10.9 - 14.2 % [facility] HemeAutoSS Hematocrit (Bld) [Volume fraction] 41.7 % Normal 34.0 - 46.0 % [facility] HemeAutoSS Hemoglobin (Bld) [Mass/Vol] 14.0 g/dL Normal 12.0 - 16.0 gm/dL [facility] HemeAutoSS MCH (RBC) [Entitic mass] 29.5 pg Normal 27.0 - 34.0 pg [facility] HemeAutoSS MCHC (RBC) [Mass/Vol] 33.6 g/dL Normal 31.4 - 36.0 gm/dL [facility] HemeAutoSS MCV (RBC) [Entitic vol] 87.8 fL Normal 80.0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 [facility] Start: 2021 Pneumococcal Vaccine: 65+ Years (2 - PCV) Pneumococcal Vaccine: 65+ Years (2 - PCV) [facility] Start: 2011 Screening for osteoporosis DEXA (modify frequency per FRAX score) [facility] Start: 2006 Screening for malignant neoplasm of breast Breast cancer screen [facility] Start: 2006 Shingles vaccine (1 of 2) Shingles vaccine (1 of 2) [facility] Start: 2001 Screening for malignant neoplasm of colon [facility] Start: 1996 Lipid panel Lipids [facility] Start: 1996 Screening for malignant neoplasm of breast Mammogram [facility] Start: 1986 Screening for malignant neoplasm of cervix [facility] Start: 1977 Screening for malignant neoplasm of cervix Pap smear [facility] Start: 1975 DTaP/Tdap/Td vaccine (1 - Tdap) DTaP/Tdap/Td vaccine (1 - Tdap) [facility] Start: 1974 Hepatitis C screening Hepatitis C screen [facility] Start: 1971 HIV screening HIV screen [facility] Start: 1968 Depression Screen Depression Screen [facility] Start: 1956 Annual Wellness Visit (AWV) Annual Wellness Visit (AWV) [facility] Start: 1956 Screening for malignant neoplasm of colon [facility] Immunizations Immunization Date Immunization Notes Care Provider Fa cili 06-15-2021 SARS-CoV-2 (COVID-19 ) mRNA-1273 vaccine [facility] 10-06-2020 SARS-CoV-2 (COVID-19 ) mRNA-1273 vaccine [facility] Comment on above: Result Comment: 2022: 61 09-26-2020 SARS-CoV-2 (COVID-19 ) mRNA-1273 vaccine [facility] [place] 09-08-2020 SARS-CoV-2 (COVID-19 ) mRNA-1273 vaccine [facility] [place] 04-07-2005 pneumococcal polysaccharide vaccine, 23 valent Vikram CHANEY [facility] NEGATED: Highlighted row has not occurred!05-10-2023 pneumococcal polysaccharide vaccine, 23 valent Esperanza CHANEY [facility] NEGATED: Highlighted row has not occurred!05-10-2023 pneumococcal conjugate vaccine, 13 valent Esperanza CHANEY [facility] NEGATED: Highlighted row has not occurred!05-10-2023 influenza virus vaccine, unspecified formulation Esperanza CHANEY [facility] NEGATED: Highlighted row has not occurred!09-20-2022 influenza virus vaccine, unspecified formulation Guerita Knapp [facility] NEGATED: Highlighted row has not occurred!06-27-2022 influenza virus vaccine, unspecified formulation Nayan Cherry [facility] [place] NEGATED: Highlighted row has not occurred!05-10-2022 influenza virus vaccine, unspecified formulation Esperanza CHANEY [facility] NEGATED: Highlighted row has not occurred!05-10-2022 pneumococcal polysaccharide vaccine, 23 valent Esperanza CHANEY [facility] Payers Date Payer Category Payer Medicare MEDICARE MEDICAR E PART B [id number] 2021-[place] [address] [address] Medicare [id number] 2021 Unknown [id number].3 .[id number] 2021 Medicare [id number] 1.2.840.810302.1.13.239.2.7.3 .343832.315 2020 Unknown 2020 Unknown [id number] 2019 Unknown [id number] 2019 Unknown [facility] UHC/UHONE/GO LDEN RULE xxxxxxxxx 2019-Present xxxxxxxxx 1.2.840.519511.1.13.385.2.7.3 .286736.315 2019 Unknown [id number] 1956 Unknown [id number] 2.16.840.1.099658.3.579.2.902 1956 Unknown [id number] 2.16.840.1.655834.3.579.2.174 1956 Unknown [id number] 2.16.840.1.335472.3.579.2.174 1956 Unknown [id number] 2.16.840.1.848437.3.579.2.174 1956 Unknown [id number] 2.16.840.1.418640.3.579.2.174 1956 Unknown [id number] 2.16.840.1.284401.3.579.2.174 1956 Unknown [id number] 2.16.840.1.546591.3.579.2.174 1956 Unknown [id number] 2.16.840.1.271844.3.579.2.174 1956 Unknown [id number] 2.16.840.1.979575.3.579.2.174 1956 Unknown [id number] 2.16.840.1.074197.3.579.2.174 1956 Unknown [id number] 2.16.840.1.123900.3.579.2.174 1956 Unknown [id number] 2.16.840.1.189486.3.579.2.174 1956 Unknown [id number] 2.16.840.1.307388.3.579.2.174 1956 Unknown [id number] 2.16.840.1.778712.3.579.2.174 1956 Unknown [id number] 2.16.840.1.152187.3.579.2.174 1956 Unknown [id number] 2.16.840.1.811338.3.579.2.174 1956 Unknown [id number] 2.16.840.1.374555.3.579.2.356 1956 Unknown [id number] 2.16.840.1.167261.3.579.2.125 9 1956 Unknown [id number] 2.16.840.1.190600.3.579.2.125 9 1956 Unknown [id number] 2.16.840.1.394899.3.579.2.125 9 1956 Unknown [id number] 2.16.840.1.538058.3.579.2.125 9 1956 Unknown [id number] 2.16.840.1.143151.3.579.2.125 9 1956 Unknown [id number] 2.16.840.1.087723.3.579.2.125 9 1956 Unknown [id number] 2.16.840.1.230561.3.579.2.125 9 1956 Unknown [id number] 2.16.840.1.683862.3.579.2.125 9 1956 Unknown [id number] 2.16.840.1.113222.3.579.2.125 9 1956 Unknown [id number] 2.16.840.1.833214.3.579.2.125 9 1956 Unknown [id number] 2.16.840.1.397203.3.579.2.125 9 1956 Unknown [id number] 2.16.840.1.570419.3.579.2.125 9 1956 Unknown [id number] 2.16.840.1.211768.3.579.2.125 9 1956 Unknown [id number] 2.16.840.1.361554.3.579.2.125 9 1956 Unknown [id number] 2.16.840.1.863609.3.579.2.125 9 1956 Unknown [id number] 2.16.840.1.130348.3.579.2.125 9 1956 Unknown [id number] 2.16.840.1.635833.3.579.2.125 9 1956 Unknown [id number] 2.16.840.1.973719.3.579.2.125 9 1956 Unknown [id number] 2.16.840.1.874273.3.579.2.125 9 1956 Unknown [id number] 2.16.840.1.586773.3.579.2.727 1956 Unknown [id number] 2.16.840.1.440657.3.579.2.727 1956 Unknown [id number] 2.16.840.1.619283.3.579.2.727 1956 Unknown [id number] 2.16.840.1.723054.3.579.2.727 1956 Unknown [id number] 2.16.840.1.864148.3.579.2.727 1956 Unknown [id number] 2.16.840.1.404301.3.579.2.727 1956 Unknown [id number] 2.16.840.1.378446.3.579.2. 1956 Unknown [id number] 2.16.840.1.260670.3.579.2 1956 Unknown [id number] 2.16.840.1.448987.3.579.2. 1956 Unknown [id number] 2.16.840.1.174819.3.579.2. 1956 Unknown [id number] 2.16.840.1.787822.3.579.2. 1956 Unknown [id number] 2.16.840.1.207892.3.579.2 1956 Unknown [id number] 2.16.840.1.007931.3.579.2 1956 Unknown [id number] 2.16.840.1.392048.3.579.2 1956 Unknown [id number] 2.16.840.1.784168.3.579.2 1956 Unknown [id number] 2.16.840.1.806431.3.579.2 1956 Unknown [id number] 2.16.840.1.047003.3.579.2 1956 Unknown [id number] 2.16.840.1.777883.3.579.2 1956 Unknown [id number] 2.16.840.1.976328.3.579.2. 1956 Unknown [id number] 2.16.840.1.037615.3.579.2 1956 Unknown [id number] 2.16.840.1.370520.3.579.2 1956 Unknown [id number] 2.16.840.1.566675.3.579.2.72 1956 Unknown [id number] 2.16.840.1.294685.3.579.2. 1956 Unknown [id number] 2.16.840.1.209581.3.579.2. 1956 Unknown [id number] 2.16.840.1.063215.3.579.2. 1956 Unknown [id number] 2.16.840.1.310834.3.579.2. 1956 Unknown [id number] 2.16.840.1.897862.3.579.2 1956 Unknown [id number] 2.16.840.1.704175.3.579.2 1956 Unknown [id number] 2.16.840.1.455478.3.579.2 1956 Unknown [id number] 2.16.840.1.908983.3.579.2 1956 Unknown [id number] 2.16.840.1.936870.3.579.2 1956 Unknown [id number] 2.16.840.1.084593.3.579.2 1956 Unknown [id number] 2.16.840.1.072158.3.579.2 1956 Unknown [id number] 2.16.840.1.815902.3.579.2 1956 Unknown [id number] 2.16.840.1.359285.3.579.2 1956 Unknown [id number] 2.16.840.1.193507.3.579.2 1956 Unknown [id number] 2.16.840.1.595977.3.579.21956 Unknown [id number] 2.16.840.1.495902.3.579.2.727 1956 Unknown [id number] 2.16.840.1.328550.3.579.2.727 1956 Unknown [id number] 2.16.840.1.378642.3.579.2.727 1956 Unknown [id number] 2.16.840.1.578578.3.579.2.727 1956 Unknown [id number] 2.16.840.1.420506.3.579.2.727 1956 Unknown [id number] 2.16.840.1.790098.3.579.2.727 1956 Unknown [id number] 2.16.840.1.264356.3.579.2.727 1956 Unknown [id number] 2.16.840.1.070245.3.579.2.727 Social History Date Type Detail Facility Start: 12-28-2019 End: 01-02-2024 Tobacco smoking status KSIS Never smoker [facility] Comment on above: Denies use. Start: 12-28-2019 End: 08-16-2023 Alcohol intake Lifetime non-drinker (finding) [facility] Start: 12-28-2019 History SDOH Alcohol Frequency 1 [facility] Start: 1955 Sex Assigned At Not on file [facility] Exposure to SARS-CoV -2 (event) Not sure [facility] Comment on above: Denies use. Start: 08-14-2023 End: 08-16-2023 Sex Assigned At Female [facility] Tobacco smoking stat us [facility] Tobacco [facility] consumption [facility] Start: 01-03-2023 Tobacco use and exposure Smokeless tobacco non-user [facility] Start: 08-14-2023 End: 08-16-2023 History of Social function [facility] Medical Equipment Procedure Code Equipment Code Equipment Origin al Text Equipment Identifier Dates KNEE TOTAL ARTHROPLASTY Joan Warner DO 01/03/22 Non Biological Knee R {[id number]{ [id number]{17}[id number] FDA Start: 01-03-2022 Unknown Unknown 07/07/22 Non Biological Unknown FDA Start: 07-07-2022 FDA Start: 07-07-2022 Unknown Unknown 07/07/22 Non Biological Unknown FDA Start: 07-07-2022 FDA Start: 07-07-2022 Unknown Unknown 07/07/22 Non Biological Unknown FDA Start: 07-07-2022 FDA Start: 07-07-2022 Unknown Unknown 07/07/22 Non Biological Unknown FDA Start: 07-07-2022 FDA Start: 07-07-2022 Unknown Unknown 07/07/22 Non Biological Unknown FDA Start: 07-07-2022 FDA Start: 07-07-2022 Unknown Unknown 07/07/22 Non Biological Unknown FDA Start: 07-07-2022 FDA Start: 07-07-2022 Unknown Unknown 07/07/22 Non Biological Unknown FDA Start: 07-07-2022 FDA Start: 07-07-2022 Unknown Unknown 07/07/22 Non Biological Unknown FDA Start: 07-07-2022 FDA Start: 07-07-2022 Unknown Unknown 07/07/22 Non Biological Unknown FDA Start: 07-07-2022 FDA Start: 07-07-2022 Unknown Unknown 07/07/22 Non Biological Unknown FDA Start: 07-07-2022 FDA Start: 07-07-2022 Unknown Unknown 07/07/22 Non Biological Unknown FDA Start: 07-07-2022 FDA Start: 07-07-2022 Unknown Unknown 07/07/22 Non Biological Unknown FDA Start: 07-07-2022 FDA Start: 07-07-2022 Unknown Unknown 07/07/22 Non Biological Unknown FDA Start: 07-07-2022 FDA Start: 07-07-2022 Unknown Unknown 07/07/22 Non Biological Unknown FDA Start: 07-07-2022 FDA Start: 07-07-2022 Unknown Unknown 07/07/22 Non Biological Unknown FDA Start: 07-07-2022 FDA Start: 07-07-2022 Unknown Unknown 07/07/22 Non Biological Unknown FDA Start: 07-07-2022 FDA Start: 07-07-2022 Unknown Unknown 07/07/22 Non Biological Unknown FDA Start: 07-07-2022 FDA Start: 07-07-2022 Unknown Unknown 07/07/22 Non Biological Unknown FDA Start: 07-07-2022 FDA Start: 07-07-2022 Unknown Unknown 07/07/22 Non Biological Unknown FDA Start: 07-07-2022 FDA Start: 07-07-2022 Unknown Unknown 07/07/22 Non Biological Unknown FDA Start: 07-07-2022 FDA Start: 07-07-2022 Unknown Unknown 07/07/22 Non Biological Unknown FDA Start: 07-07-2022 FDA Start: 07-07-2022 Unknown Unknown 07/07/22 Non Biological Unknown FDA Start: 07-07-2022 FDA Start: 07-07-2022 Unknown Unknown 07/07/22 Non Biological Unknown FDA Start: 07-07-2022 FDA Start: 07-07-2022 Unknown Unknown 07/07/22 Non Biological Unknown FDA Start: 07-07-2022 FDA Start: 07-07-2022 Unknown Unknown 07/07/22 Non Biological Unknown FDA Start: 07-07-2022 FDA Start: 07-07-2022 Unknown Unknown 07/07/22 Non Biological Unknown FDA Start: 07-07-2022 FDA Start: 07-07-2022 Unknown Unknown 07/07/22 Non Biological Unknown FDA Start: 07-07-2022 FDA Start: 07-07-2022 Unknown Unknown 07/07/22 Non Biological Unknown FDA Start: 07-07-2022 FDA Start: 07-07-2022 Unknown Unknown 07/07/22 Non Biological Unknown FDA Start: 07-07-2022 FDA Start: 07-07-2022 Unknown Unknown 07/07/22 Non Biological Unknown FDA Start: 07-07-2022 FDA Start: 07-07-2022 Unknown Unknown 07/07/22 Non Biological Unknown FDA Start: 07-07-2022 FDA Start: 07-07-2022 Unknown Unknown 07/07/22 Non Biological Unknown FDA Start: 07-07-2022 FDA Start: 07-07-2022 Unknown Unknown 07/07/22 Non Biological Unknown FDA Start: 07-07-2022 FDA Start: 07-07-2022 Unknown Unknown 07/07/22 Non Biological Unknown FDA Start: 07-07-2022 FDA Start: 07-07-2022 Unknown Unknown 07/07/22 Non Biological Unknown FDA Start: 07-07-2022 FDA Start: 07-07-2022 Unknown Unknown 07/07/22 Non Biological Unknown FDA Start: 07-07-2022 FDA Start: 07-07-2022 Unknown Unknown 07/07/22 Non Biological Unknown FDA Start: 07-07-2022 FDA Start: 07-07-2022 Unknown Unknown 07/07/22 Non Biological Unknown FDA Start: 07-07-2022 FDA Start: 07-07-2022 Unknown Unknown 07/07/22 Non Biological Unknown FDA Start: 07-07-2022 FDA Start: 07-07-2022 Unknown Unknown 07/07/22 Non Biological Unknown FDA Start: 07-07-2022 FDA Start: 07-07-2022 Unknown Unknown 07/07/22 Non Biological Unknown FDA Start: 07-07-2022 FDA Start: 07-07-2022 Unknown Unknown 07/07/22 Non Biological Unknown FDA Start: 07-07-2022 FDA Start: 07-07-2022 Unknown Unknown 07/07/22 Non Biological Unknown FDA Start: 07-07-2022 FDA Start: 07-07-2022 Unknown Unknown 07/07/22 Non Biological Unknown FDA Start: 07-07-2022 FDA Start: 07-07-2022 Unknown Unknown 07/07/22 Non Biological Unknown FDA Start: 07-07-2022 FDA Start: 07-07-2022 Unknown Unknown 07/07/22 Non Biological Unknown FDA Start: 07-07-2022 FDA Start: 07-07-2022 Unknown Unknown 07/07/22 Non Biological Unknown FDA Start: 07-07-2022 FDA Start: 07-07-2022 Unknown Unknown 07/07/22 Non Biological Unknown FDA Start: 07-07-2022 FDA Start: 07-07-2022 Functional Status Date Assessment Result Facility 01-02-2024 Functional Status N/A [facility] 10-30-2023 Functional Status N/A [facility] 08-14-2023 Functional Status N/A [facility] 07-05-2023 Functional Status N/A [facility] 05-10-2023 Functional Status N/A [facility] 09-20-2022 Functional Status N/A [facility] 07-07-2022 Functional Status N/A [facility] 06-27-2022 Functional Status N/A [facility] [place] 05-10-2022 Functional Status N/A [facility] 01-18-2022 Functional Status N/A [facility] Clinical Notes 12-10-2019 to 01-02-2024 JUSTINO Persaud - 08/16/2023 8:15 AM ESTPatient Instructions Note Date & Type Note Facility 01-02-2024 Hospital Discharge instructions Patient Education 01/02/2024 11:08:55 Budget-Friendly Healthy Eating Budget-Friendly Healthy Eating There are many ways to save money at the grocery store and continue to eat healthy. You can be successful if you: Plan meals according to your budget. Make a grocery list and only purchase food according to your grocery list. Prepare food yourself at home. What are tips for following this plan? Reading food labels Compare food labels between brand name foods and the store brand. Often the nutritional value is the same, but the store brand is lower cost. Look for products that do not have added sugar, fat, or salt (sodium). These often cost the same but are healthier for you. Products may be labeled as: ?Sugar-free. ?Nonfat. ?Low-fat. ?Sodium-free. ?Low-sodium. Look for lean ground beef labeled as at least 92% lean and 8% fat. Shopping Buy only the items on your grocery list and go only to the areas of the store that have the items on your list. Use coupons only for foods and brands you normally buy. Avoid buying items you wouldn't normally buy simply because they are on sale. Check online and in newspapers for weekly deals. Buy healthy items from the bulk bins when available, such as herbs, spices, flour, pasta, nuts, and dried fruit. Buy fruits and vegetables that are in season. Prices are usually lower on in-season produce. Look at the unit nascimento on the nascimento tag. Use it to compare different brands and sizes to find out which item is the best deal. Choose healthy items that are often low-cost, such as carrots, potatoes, apples, bananas, and oranges. Dried or canned beans are a low-cost protein source. Buy in bulk and freeze extra food. Items you can buy in bulk include meats, fish, poultry, frozen fruits, and frozen vegetables. Avoid buying nwefe-nn-lwi foods, such as pre-cut fruits and vegetables and pre-made salads. If possible, shop around to discover where you can find the best prices. Consider other retailers such as [employer] stores, larger wholesale stores, local fruit and vegetable [employer], and [employer] markets. Do not shop when you are hungry. If you shop while hungry, it may be hard to stick to your list and budget. Resist impulse buying. Use your grocery list as your official plan for the week. Buy a variety of vegetables and fruits by purchasing fresh, frozen, and canned items. Look at the top and bottom shelves for deals. Foods at eye level (eye level of an adult or child) are usually more expensive. Be efficient with your time when shopping. The more time you spend at the store, the more money you are likely to spend. To save money when choosing more expensive foods like meats and dairy: ?Choose cheaper cuts of meat, such as bone-in chicken thighs and drumsticks instead of skinless and boneless chicken. When you are ready to prepare the chicken, you can remove the skin yourself to make it healthier. ?Choose lean meats like chicken or turkey instead of beef. ?Choose canned seafood, such as tuna, salmon, or sardines. ?Buy eggs as a low-cost source of protein. ?Buy dried beans and peas, such as lentils, split peas, or kidney beans instead of meats. Dried beans and peas are a good alternative source of protein. ?Buy the larger tubs of yogurt instead of individual-sized containers. Choose water instead of sodas and other sweetened beverages. Avoid buying chips, cookies, and other junk food. These items are usually expensive and not healthy. Cooking Make extra food and freeze the extras in meal-sized containers or in individual portions for fast meals and snacks. Pre-cook on days when you have extra time to prepare meals in advance. You can keep these meals in the fridge or freezer and reheat for a quick meal. When you come home from the grocery store, wash, peel, and cut fruits and vegetables so they are ready to use and eat. This will help reduce food waste. Meal planning Do not eat out or get fast food. Prepare food at home. Make a grocery list and make sure to bring it with you to the store. If you have a smart phone, you could use your phone to create your shopping list. Plan meals and snacks according to a grocery list and budget you create. Use leftovers in your meal plan for the week. Look for recipes where you can cook once and make enough food for two meals. Prepare budget-friendly types of meals like stews, casseroles, and stir-wright dishes. Try some meatless meals or try no cook meals like salads. Make sure that half your plate is filled with fruits or vegetables. Choose from fresh, frozen, or canned fruits and vegetables. If eating canned, remember to rinse them before eating. This will remove any excess salt added for packaging. Summary Eating healthy on a budget is possible if you plan your meals according to your budget, purchase according to your budget and grocery list, and prepare food yourself. Tips for buying more food on a limited budget include buying generic brands, using coupons only for foods you normally buy, and buying healthy items from the bulk bins when available. Tips for buying cheaper food to replace expensive food include choosing cheaper, lean cuts of meat, and buying dried beans and peas. This information is not intended to replace advice given to you by your health care provider. Make sure you discuss any questions you have with your health care provider. Document Revised: 04/08/2021 Document Reviewed: 04/08/2021 [employer] Patient Education 2022 [employer]. Follow Up Care 01/01/2024 08:21:19 With:Ra MENDES, Guerita Marshall Address: [address] [place] [phone] When:Within 6 Month(s) Comments:For check up [facility] [place] 08-16-2023 History of Present illness Narrative GENERAL HISTORY AND PHYSICAL: NAME: Angela Alonzo : 1955 HISTORY OF PRESENT ILLNESS: Angela Alonzo is an 68 y.o. female is here for orthopedic evaluation Right knee she had a total knee done in December of 2021. Proximally a month ago she was feeding her manage her horses and stepped in a hole causing her to fall forward onto the front of her right knee. She has had swelling to the lateral anterior portion of her knee not affecting her central incision or scar. There is no abrasion. No evidence of infection or fever. PAST MEDICAL HISTORY: Past Medical History: Diagnosis Date Arthritis Asthma (CMS/HCC) Depression (CMS/HCC) Osteoporosis (CMS/HCC) Rhinitis PAST SURGICAL HISTORY: Past Surgical History: Procedure Laterality Date BREAST LUMPECTOMY HEEL SPUR SURGERY KNEE SURGERY Right 01/03/2022 [facility] TOTAL KNEE ARTHROPLASTY Right 01/03/2022 [facility] SOCIAL HISTORY: Social History Occupational History Not on file Tobacco Use Smoking status: Never Smokeless tobacco: Never Substance and Sexual Activity Alcohol use: Never Drug use: Never Sexual activity: Not on file ALLERGIES: Allergies Allergen Reactions Codeine GI intolerance, Dizziness, Nausea And Vomiting and Unknown Amoxicillin Rash Naproxen Nausea Only MEDICATIONS: Current Outpatient Medications Medication Instructions albuterol (2.5 MG/3ML) 0.083% nebulizer solution 0.083% - 3mL dosing units, Inhalation, q6hr Wheezing, 100 EA, Refill(s) 2, [facility] [id number], 165, cm, 07/07/22 9:42:00 EST, Height/Length Dosing, 98, kg, 07/07/22 9:42:00 EST, Weight Dosing cetirizine (ZyrTEC) 10 MG tablet Cetirizine HCl clindamycin (CLEOCIN) 300 mg, Oral cyanocobalamin (VITAMIN B-12) 100 mcg, Oral, Daily escitalopram (LEXAPRO) 20 mg, Oral hydrOXYzine HCl (ATARAX) 25 mg, Oral montelukast (SINGULAIR) 10 mg, Oral REVIEW OF SYSTEMS: Review of Systems General: Denies appetite or significant weight change. Denies fever, chills or night sweats. Denies lightheadedness. ENT: Denies dry mouth, sore throat or swollen glands. Denies difficulty swallowing. Denies ear pain. Respiratory: Denies chest pain, SOB, cough or wheezing. Denies asthma or pneumonia symptoms. Cardiovascular: Denies CP or palpitations. No syncope or dyspnea on exertion. Gastrointestinal: Denies nausea or vomiting. Denies heartburn or abdominal pain. Denies diarrhea. Genitourinary: Denies frequent or painful urination. Musculoskeletal: See HPI for comments. Integumentary: Denies rash, lesion or skin infection. Neurologic: Denies dizziness, headache or seizure history. Vitals: Body mass index is 41.15 kg/m . PHYSICAL EXAM: Physical Exam Right knee has full extension and flexion of 115 degrees she does have a prominence of prepatellar swelling with no evidence of redness or warmth no fever to the outside of the inferior patellar bursa. No injury to the well-healed scar status post knee replacement. Mediolateral collateral ligaments are stable she does have 0 to 105 degrees range of motion of the knee. XR knee 3 views right Imaging Result: Bilateral standing PA, bilateral sunrise, and lateral of the affected knee were imaged today in the office. Patient has total knee arthroplasty on the right knee with no evidence of acute fracture or loosening of the component. She has excellent alignment of the prosthesis and joint her left knee is arthritic with [id number] changes to the medial compartment as well as patellofemoral joint. Orders Placed This Encounter Procedures XR knee 3 views right Order Specific Question: Reason for exam: Answer: pain ASSESSMENT: History of total right knee replacement Hemorrhagic prepatellar bursitis of right knee PLAN: If tolerant may use anti-inflammatory medication taking with food to avoid GI upset. Use cold pack to the anterior right knee to help reduce swelling from your recent fall injury. This will take several weeks to resolve without any further treatment. Talk to Dr. Colindres about using a dose of antibiotic at the time of your foot surgery on the right bunion and 2nd toe procedure. May also want to talk about an elevated sole type shoe for the opposite foot to improve her gait while walking in a postop boot. Tylenol we will be helpful as well to help control discomfort in his safer for your body and organs. JUSTINO Persaud documented in this encounter [facility] 08-16-2023 Instructions JUSTINO Persaud - 08/16/2023 8:15 AM EST If tolerant may use anti-inflammatory medication taking with food to avoid GI upset. Use cold pack to the anterior right knee to help reduce swelling from your recent fall injury. This will take several weeks to resolve without any further treatment. Talk to Dr. Colindres about using a dose of antibiotic at the time of your foot surgery on the right bunion and 2nd toe procedure. May also want to talk about an elevated sole type shoe for the opposite foot to improve her gait while walking in a postop boot. Tylenol we will be helpful as well to help control discomfort in his safer for your body and organs. documented in this encounter [facility] 08-14-2023 Hospital Discharge instructions Patient Education 08/14/2023 11:45:13 Bunion Surgery, Care After Bunion Surgery, Care After This sheet gives you information about how to care for yourself after your procedure. Your health care provider may also give you more specific instructions. If you have problems or questions, contact your health care provider. What can I expect after the procedure? After the procedure, it is common to have: Redness. Pain. Swelling. A small amount of fluid coming from your incision. Follow these instructions at home: If you have a post-operative brace, boot, or shoe: Wear the post-op (post-operative) brace, boot, or shoe as told by your health care provider. Remove it only as told by your health care provider. Loosen the brace, boot, or shoe if your toes tingle, become numb, or turn cold and blue. Keep the brace, boot, or shoe clean and dry. If you have a cast: Do not put pressure on any part of the cast until it is fully hardened. This may take several hours. Do not stick anything inside the cast to scratch your skin. Doing that increases your risk of infection. Check the skin around the cast every day. Tell your health care provider about any concerns. You may put lotion on dry skin around the edges of the cast. Do not put lotion on the skin underneath the cast. Keep the cast clean and dry. Bathing Do not take baths, swim, or use a hot tub until your health care provider approves. Ask your health care provider if you may take showers. If your brace, boot, shoe, or cast is not waterproof: ?Do not let it get wet. ?Cover it with a watertight covering when you take a bath or a shower. Keep your bandage (dressing) dry until your health care provider says it can be removed. Incision care The dressing holds your toe in the correct position. Do not change the dressing until your health care provider approves. Follow instructions from your health care provider about how to take care of your incision. Make sure you: ?Wash your hands with soap and water for at least 20 seconds before and after you change your dressing. If soap and water are not available, use hand ciaio lumite injector. ?Change your dressing as told by your health care provider. ?Leave stitches (sutures), skin glue, or adhesive strips in place. These skin closures may need to stay in place for 2 weeks or longer. If adhesive strip edges start to loosen and curl up, you may trim the loose edges. Do not remove adhesive strips completely unless your health care provider tells you to do that. Check your incision area every day for signs of infection. Check for: ?More redness, swelling, or pain. ?Blood or more fluid. ?Warmth. ?Pus or a bad smell. Managing pain, stiffness, and swelling If directed, put ice on the affected area. To do this: ?If you have a removable brace, boot, or shoe, remove it as told by your health care provider. ?Put ice in a plastic bag. ?Place a towel between your skin and the bag or between your cast and the bag. ?Leave the ice on for 20 minutes, 2 3 times a day. ?Remove the ice if your skin turns bright red. This is very important. If you cannot feel pain, heat, or cold, you have a greater risk of damage to the area. Move your toes often to reduce stiffness and swelling. Raise (elevate) the injured area above the level of your heart while you are sitting or lying down. Activity Return to your normal activities as told by your health care provider. Ask your health care provider what activities are safe for you. If physical therapy was prescribed, do exercises as told by your health care provider. Driving If you were given a sedative during the procedure, it can affect you for several hours. Do not drive or operate machinery until your health care provider says that it is safe. Ask your health care provider when it is safe to drive if you have a brace, boot, shoe, or cast on your foot. Safety Do not use the affected leg to support (bear) your body weight until your health care provider says that you can. Follow weight-bearing restrictions as told. Use crutches, a cane, or a walker as told by your health care provider. General instructions Do not use any products that contain nicotine or tobacco, such as cigarettes, e-cigarettes, and chewing tobacco. If you need help quitting, ask your health care provider. Take mmxk-ssf-hfmkflb and prescription medicines only as told by your health care provider. Your medicines may cause constipation. To prevent or treat constipation, you may need to: ?Drink enough fluid to keep your urine pale yellow. ?Take xufi-sli-ovygbxl or prescription medicines. ?Eat foods that are high in fiber, such as beans, whole grains, and fresh fruits and vegetables. ?Limit foods that are high in fat and processed sugars, such as fried or sweet foods. Do not wear high heels or tight-fitting shoes, even after you heal. Keep all follow-up visits. This is important. Contact a health care provider if: You have any of these signs of infection: ?More redness, swelling, or pain around your incision. ?Blood or more fluid coming from your incision. ?Warmth coming from your incision. ?Pus or a bad smell coming from your incision. ?A fever or chills. Your dressing gets wet or it falls off. You have swelling in your lower leg or calf. You have numbness or stiffness in your toes. Get help right away if: You have severe pain. You have shortness of breath or trouble breathing. You have chest pain. You have redness, swelling, pain, or warmth in your calf or leg. These symptoms may represent a serious problem that is an emergency. Do not wait to see if the symptoms will go away. Get medical help right away. Call your local emergency services (911 in the [place] Do not drive yourself to the hospital. Summary If directed, put ice on the affected area. Leave the ice on for 20 minutes, 2 3 times a day. Ask your health care provider when it is safe to drive if you have a brace, boot, shoe, or cast on your foot. Do not use the affected leg to support (bear) your body weight until your health care provider says that you can. Follow weight-bearing restrictions as told. Use crutches, a cane, or a walker as told by your health care provider. This information is not intended to replace advice given to you by your health care provider. Make sure you discuss any questions you have with your health care provider. Document Revised: 10/30/2020 Document Reviewed: 10/30/2020 [employer] Patient Education 2022 [employer]. Follow Up Care 08/07/2023 16:27:59 With:Ra MENDES, Guerita Amor. Address: [address] [place] [phone] When: only if needed Comments:Only if needed [facility] [place] 07-05-2023 Hospital Discharge instructions Patient Education 07/05/2023 13:21:59 Budget-Friendly Healthy Eating Budget-Friendly Healthy Eating There are many ways to save money at the grocery store and continue to eat healthy. You can be successful if you: Plan meals according to your budget. Make a grocery list and only purchase food according to your grocery list. Prepare food yourself at home. What are tips for following this plan? Reading food labels Compare food labels between brand name foods and the store brand. Often the nutritional value is the same, but the store brand is lower cost. Look for products that do not have added sugar, fat, or salt (sodium). These often cost the same but are healthier for you. Products may be labeled as: ?Sugar-free. ?Nonfat. ?Low-fat. ?Sodium-free. ?Low-sodium. Look for lean ground beef labeled as at least 92% lean and 8% fat. Shopping Buy only the items on your grocery list and go only to the areas of the store that have the items on your list. Use coupons only for foods and brands you normally buy. Avoid buying items you wouldn't normally buy simply because they are on sale. Check online and in newspapers for weekly deals. Buy healthy items from the bulk bins when available, such as herbs, spices, flour, pasta, nuts, and dried fruit. Buy fruits and vegetables that are in season. Prices are usually lower on in-season produce. Look at the unit nascimento on the nascimento tag. Use it to compare different brands and sizes to find out which item is the best deal. Choose healthy items that are often low-cost, such as carrots, potatoes, apples, bananas, and oranges. Dried or canned beans are a low-cost protein source. Buy in bulk and freeze extra food. Items you can buy in bulk include meats, fish, poultry, frozen fruits, and frozen vegetables. Avoid buying lgyja-gi-lug foods, such as pre-cut fruits and vegetables and pre-made salads. If possible, shop around to discover where you can find the best prices. Consider other retailers such as dollar stores, larger wholesale stores, local fruit and vegetable stands, and farmers markets. Do not shop when you are hungry. If you shop while hungry, it may be hard to stick to your list and budget. Resist impulse buying. Use your grocery list as your official plan for the week. Buy a variety of vegetables and fruits by purchasing fresh, frozen, and canned items. Look at the top and bottom shelves for deals. Foods at eye level (eye level of an adult or child) are usually more expensive. Be efficient with your time when shopping. The more time you spend at the store, the more money you are likely to spend. To save money when choosing more expensive foods like meats and dairy: ?Choose cheaper cuts of meat, such as bone-in chicken thighs and drumsticks instead of skinless and boneless chicken. When you are ready to prepare the chicken, you can remove the skin yourself to make it healthier. ?Choose lean meats like chicken or turkey instead of beef. ?Choose canned seafood, such as tuna, salmon, or sardines. ?Buy eggs as a low-cost source of protein. ?Buy dried beans and peas, such as lentils, split peas, or kidney beans instead of meats. Dried beans and peas are a good alternative source of protein. ?Buy the larger tubs of yogurt instead of individual-sized containers. Choose water instead of sodas and other sweetened beverages. Avoid buying chips, cookies, and other junk food. These items are usually expensive and not healthy. Cooking Make extra food and freeze the extras in meal-sized containers or in individual portions for fast meals and snacks. Pre-cook on days when you have extra time to prepare meals in advance. You can keep these meals in the fridge or freezer and reheat for a quick meal. When you come home from the grocery store, wash, peel, and cut fruits and vegetables so they are ready to use and eat. This will help reduce food waste. Meal planning Do not eat out or get fast food. Prepare food at home. Make a grocery list and make sure to bring it with you to the store. If you have a smart phone, you could use your phone to create your shopping list. Plan meals and snacks according to a grocery list and budget you create. Use leftovers in your meal plan for the week. Look for recipes where you can cook once and make enough food for two meals. Prepare budget-friendly types of meals like stews, casseroles, and stir-wright dishes. Try some meatless meals or try no cook meals like salads. Make sure that half your plate is filled with fruits or vegetables. Choose from fresh, frozen, or canned fruits and vegetables. If eating canned, remember to rinse them before eating. This will remove any excess salt added for packaging. Summary Eating healthy on a budget is possible if you plan your meals according to your budget, purchase according to your budget and grocery list, and prepare food yourself. Tips for buying more food on a limited budget include buying generic brands, using coupons only for foods you normally buy, and buying healthy items from the bulk bins when available. Tips for buying cheaper food to replace expensive food include choosing cheaper, lean cuts of meat, and buying dried beans and peas. This information is not intended to replace advice given to you by your health care provider. Make sure you discuss any questions you have with your health care provider. Document Revised: 04/08/2021 Document Reviewed: 04/08/2021 [employer] Patient Education 2022 [employer]. Follow Up Care 07/04/2023 08:35:54 With:Guerita Knapp PA-C Address: [address] [place] [phone] When: only if needed Comments:Only if needed [facility] 05-10-2023 Hospital Discharge instructions Patient Education 05/10/2023 09:06:15 BMI for Adults BMI for Adults What is BMI? Body mass index (BMI) is a number that is calculated from a person's weight and height. BMI can help estimate how much of a person's weight is composed of fat. BMI does not measure body fat directly. Rather, it is an alternative to procedures that directly measure body fat, which can be difficult and expensive. BMI can help identify people who may be at higher risk for certain medical problems. What are BMI measurements used for? BMI is used as a screening tool to identify possible weight problems. It helps determine whether a person is obese, overweight, a healthy weight, or underweight. BMI is useful for: Identifying a weight problem that may be related to a medical condition or may increase the risk for medical problems. Promoting changes, such as changes in diet and exercise, to help reach a healthy weight. BMI screening can be repeated to see if these changes are working. How is BMI calculated? BMI involves measuring your weight in relation to your height. Both height and weight are measured, and the BMI is calculated from those numbers. This can be done either in Indian ([place] or metric measurements. Note that charts and online BMI calculators are available to help you find your BMI quickly and easily without having to do these calculations yourself. To calculate your BMI in Indian ([place] measurements: 1.Measure your weight in pounds (lb). 2.Multiply the number of pounds by 703. For example, for a person who weighs 180 lb, multiply that number by 703, which equals 126,540. 3.Measure your height in inches. Then multiply that number by itself to get a measurement called inches squared. For example, for a person who is 70 inches tall, the inches squared measurement is 70 inches x 70 inches, which equals 4,900 inches squared. 4.Divide the total from step 2 (number of lb x 703) by the total from step 3 (inches squared): 126,540 4,900 = 25.8. This is your BMI. To calculate your BMI in metric measurements: 1.Measure your weight in kilograms (kg). 2.Measure your height in meters (m). Then multiply that number by itself to get a measurement called meters squared. For example, for a person who is 1.75 m tall, the meters squared measurement is 1.75 m x 1.75 m, which is equal to 3.1 meters squared. 3.Divide the number of kilograms (your weight) by the meters squared number. In this example: 70 3.1 = 22.6. This is your BMI. What do the results mean? BMI charts are used to identify whether you are underweight, normal weight, overweight, or obese. The following guidelines will be used: Underweight: BMI less than 18.5. Normal weight: BMI between 18.5 and 24.9. Overweight: BMI between 25 and 29.9. Obese: BMI of 30 or above. Keep these notes in mind: Weight includes both fat and muscle, so someone with a muscular build, such as an athlete, may have a BMI that is higher than 24.9. In cases like these, BMI is not an accurate measure of body fat. To determine if excess body fat is the cause of a BMI of 25 or higher, further assessments may need to be done by a health care provider. BMI is usually interpreted in the same way for men and women. Where to find more information For more information about BMI, including tools to quickly calculate your BMI, go to these websites: Centers for Disease Control and Prevention: www.cdc.gov [employer] Heart Association: www.heart.org National Heart, Lung, and Blood [place]: www.nhlbi.nih.gov Summary Body mass index (BMI) is a number that is calculated from a person's weight and height. BMI may help estimate how much of a person's weight is composed of fat. BMI can help identify those who may be at higher risk for certain medical problems. BMI can be measured using Indian measurements or metric measurements. BMI charts are used to identify whether you are underweight, normal weight, overweight, or obese. This information is not intended to replace advice given to you by your health care provider. Make sure you discuss any questions you have with your health care provider. Document Revised: 03/18/2020 Document Reviewed: 01/24/2020 [employer] Patient Education 2022 [employer]. 05/10/2023 09:06:12 Dyslipidemia Dyslipidemia Dyslipidemia is an imbalance of waxy, fat-like substances (lipids) in the blood. The body needs lipids in small amounts. Dyslipidemia often involves a high level of cholesterol or triglycerides, which are types of lipids. Common forms of dyslipidemia include: High levels of LDL cholesterol. LDL is the type of cholesterol that causes fatty deposits (plaques) to build up in the blood vessels that carry blood away from the heart (arteries). Low levels of HDL cholesterol. HDL cholesterol is the type of cholesterol that protects against heart disease. High levels of HDL remove the LDL buildup from arteries. High levels of triglycerides. Triglycerides are a fatty substance in the blood that is linked to a buildup of plaques in the arteries. What are the causes? There are two main types of dyslipidemia: primary and secondary. Primary dyslipidemia is caused by changes (mutations) in genes that are passed down through families (inherited). These mutations cause several types of dyslipidemia. Secondary dyslipidemia may be caused by various risk factors that can lead to the disease, such as lifestyle choices and certain medical conditions. What increases the risk? You are more likely to develop this condition if you are an older man or if you are a woman who has gone through menopause. Other risk factors include: Having a family history of dyslipidemia. Taking certain medicines, including control pills, steroids, some diuretics, and beta-blockers. Eating a diet high in saturated fat. Smoking cigarettes or excessive alcohol intake. Having certain medical conditions such as diabetes, polycystic ovary syndrome (PCOS), kidney disease, liver disease, or hypothyroidism. Not exercising regularly. Being overweight or obese with too much belly fat. What are the signs or symptoms? In most cases, dyslipidemia does not usually cause any symptoms. In severe cases, very high lipid levels can cause: Fatty bumps under the skin (xanthomas). A white or [place]ada ring around the black center (pupil) of the eye. Very high triglyceride levels can cause inflammation of the pancreas (pancreatitis). How is this diagnosed? Your health care provider may diagnose dyslipidemia based on a routine blood test (fasting blood test). Because most people do not have symptoms of the condition, this blood testing (lipid profile) is done on adults age 20 and older and is repeated every 4-6 years. This test checks: Total cholesterol. This measures the total amount of cholesterol in your blood, including LDL cholesterol, HDL cholesterol, and triglycerides. A healthy number is below 200 mg/dL (5.17 mmol/L). LDL cholesterol. The target number for LDL cholesterol is different for each person, depending on individual risk factors. A healthy number is usually below 100 mg/dL (2.59 mmol/L). Ask your health care provider what your LDL cholesterol should be. HDL cholesterol. An HDL level of 60 mg/dL (1.55 mmol/L) or higher is best because it helps to protect against heart disease. A number below 40 mg/dL (1.03 mmol/L) for men or below 50 mg/dL (1.29 mmol/L) for women increases the risk for heart disease. Triglycerides. A healthy triglyceride number is below 150 mg/dL (1.69 mmol/L). If your lipid profile is abnormal, your health care provider may do other blood tests. How is this treated? Treatment depends on the type of dyslipidemia that you have and your other risk factors for heart disease and stroke. Your health care provider will have a target range for your lipid levels based on this information. Treatment for dyslipidemia starts with lifestyle changes, such as diet and exercise. Your health care provider may recommend that you: Get regular exercise. Make changes to your diet. Quit smoking if you smoke. Limit your alcohol intake. If diet changes and exercise do not help you reach your goals, your health care provider may also prescribe medicine to lower lipids. The most commonly prescribed type of medicine lowers your LDL cholesterol (statin drug). If you have a high triglyceride level, your provider may prescribe another type of drug (fibrate) or an omega-3 fish oil supplement, or both. Follow these instructions at home: Eating and drinking Follow instructions from your health care provider or dietitian about eating or drinking restrictions. Eat a healthy diet as told by your health care provider. This can help you reach and maintain a healthy weight, lower your LDL cholesterol, and raise your HDL cholesterol. This may include: ?Limiting your calories, if you are overweight. ?Eating more fruits, vegetables, whole grains, fish, and lean meats. ?Limiting saturated fat, trans fat, and cholesterol. Do not drink alcohol if: ?Your health care provider tells you not to drink. ?You are , may be , or are planning to become . If you drink alcohol: ?Limit how much you have to: ?0 1 drink a day for women. ? 0 2 drinks a day for men. ?Know how much alcohol is in your drink. In the [place] one drink equals one 12 oz bottle of beer (355 mL), one 5 oz glass of wine (148 mL), or one 1 oz glass of hard liquor (44 mL). Activity Get regular exercise. Start an exercise and strength training program as told by your health care provider. Ask your health care provider what activities are safe for you. Your health care provider may recommend: ?30 minutes of aerobic activity 4 6 days a week. Brisk walking is an example of aerobic activity. ?Strength training 2 days a week. General instructions Do not use any products that contain nicotine or tobacco. These products include cigarettes, chewing tobacco, and vaping devices, such as e-cigarettes. If you need help quitting, ask your health care provider. Take qhds-mvy-[id number] and prescription medicines only as told by your health care provider. This includes supplements. Keep all follow-up visits. This is important. Contact a health care provider if: You are having trouble sticking to your exercise or diet plan. You are struggling to quit smoking or to control your use of alcohol. Summary Dyslipidemia often involves a high level of cholesterol or triglycerides, which are types of lipids. Treatment depends on the type of dyslipidemia that you have and your other risk factors for heart disease and stroke. Treatment for dyslipidemia starts with lifestyle changes, such as diet and exercise. Your health care provider may prescribe medicine to lower lipids. This information is not intended to replace advice given to you by your health care provider. Make sure you discuss any questions you have with your health care provider. Document Revised: 08/30/2021 Document Reviewed: 08/30/2021 [employer] Patient Education 2022 [employer]. 05/10/2023 09:06:07 Insomnia Insomnia Insomnia is a sleep disorder that makes it difficult to fall asleep or stay asleep. Insomnia can cause fatigue, low energy, difficulty concentrating, mood swings, and poor performance at work or school. There are three different ways to classify insomnia: Difficulty falling asleep. Difficulty staying asleep. Waking up too early in the morning. Any type of insomnia can be long-term (chronic) or short-term (acute). Both are common. Short-term insomnia usually lasts for 3 months or less. Chronic insomnia occurs at least three times a week for longer than 3 months. What are the causes? Insomnia may be caused by another condition, situation, or substance, such as: Having certain mental health conditions, such as anxiety and depression. Using caffeine, alcohol, tobacco, or drugs. Having gastrointestinal conditions, such as gastroesophageal reflux disease (GERD). Having certain medical conditions. These include: ?Asthma. ?Alzheimer's disease. ?Stroke. ?Chronic pain. ?An overactive thyroid gland (hyperthyroidism). Other sleep disorders, such as restless legs syndrome and sleep apnea. Menopause. Sometimes, the cause of insomnia may not be known. What increases the risk? Risk factors for insomnia include: Gender. Females are affected more often than males. Age. Insomnia is more common as people get older. Stress and certain medical and mental health conditions. Lack of exercise. Having an irregular work schedule. This may include working night shifts and traveling between different time zones. What are the signs or symptoms? If you have insomnia, the main symptom is having trouble falling asleep or having trouble staying asleep. This may lead to other symptoms, such as: Feeling tired or having low energy. Feeling nervous about going to sleep. Not feeling rested in the morning. Having trouble concentrating. Feeling irritable, anxious, or depressed. How is this diagnosed? This condition may be diagnosed based on: Your symptoms and medical history. Your health care provider may ask about: ?Your sleep habits. ?Any medical conditions you have. ?Your mental health. A physical exam. How is this treated? Treatment for insomnia depends on the cause. Treatment may focus on treating an underlying condition that is causing the insomnia. Treatment may also include: Medicines to help you sleep. Counseling or therapy. Lifestyle adjustments to help you sleep better. Follow these instructions at home: Eating and drinking Limit or avoid alcohol, caffeinated beverages, and products that contain nicotine and tobacco, especially close to bedtime. These can disrupt your sleep. Do not eat a large meal or eat spicy foods right before bedtime. This can lead to digestive discomfort that can make it hard for you to sleep. Sleep habits Keep a sleep diary to help you and your health care provider figure out what could be causing your insomnia. Write down: ?When you sleep. ?When you wake up during the night. ?How well you sleep and how rested you feel the next day. ?Any side effects of medicines you are taking. ?What you eat and drink. Make your bedroom a dark, comfortable place where it is easy to fall asleep. ?Put up shades or blackout curtains to block light from outside. ?Use a white noise machine to block noise. ?Keep the temperature cool. Limit screen use before bedtime. This includes: ?Not watching TV. ?Not using your smartphone, tablet, or computer. Stick to a routine that includes going to bed and waking up at the same times every day and night. This can help you fall asleep faster. Consider making a quiet activity, such as reading, part of your nighttime routine. Try to avoid taking naps during the day so that you sleep better at night. Get out of bed if you are still awake after 15 minutes of trying to sleep. Keep the lights down, but try reading or doing a quiet activity. When you feel sleepy, go back to bed. General instructions Take zkyn-mvg-vtqambi and prescription medicines only as told by your health care provider. Exercise regularly as told by your health care provider. However, avoid exercising in the hours right before bedtime. Use relaxation techniques to manage stress. Ask your health care provider to suggest some techniques that may work well for you. These may include: ?Breathing exercises. ?Routines to release muscle tension. ?Visualizing peaceful scenes. Make sure that you drive carefully. Do not drive if you feel very sleepy. Keep all follow-up visits. This is important. Contact a health care provider if: You are tired throughout the day. You have trouble in your daily routine due to sleepiness. You continue to have sleep problems, or your sleep problems get worse. Get help right away if: You have thoughts about hurting yourself or someone else. Get help right away if you feel like you may hurt yourself or others, or have thoughts about taking your own life. Go to your nearest emergency room or: Call 911. Call the National Suicide Prevention Lifeline at or 288. This is open 24 hours a day. Text the Crisis Text Line at 738995. Summary Insomnia is a sleep disorder that makes it difficult to fall asleep or stay asleep. Insomnia can be long-term (chronic) or short-term (acute). Treatment for insomnia depends on the cause. Treatment may focus on treating an underlying condition that is causing the insomnia. Keep a sleep diary to help you and your health care provider figure out what could be causing your insomnia. This information is not intended to replace advice given to you by your health care provider. Make sure you discuss any questions you have with your health care provider. Document Revised: 06/06/2022 Document Reviewed: 06/06/2022 [employer] Patient Education 2022 [employer]. 05/10/2023 09:06:04 Managing Depression, Adult Managing Depression, Adult Depression is a mental health condition that affects your thoughts, feelings, and actions. Being diagnosed with depression can bring you relief if you did not know why you have felt or behaved a certain way. It could also leave you feeling overwhelmed with uncertainty about your future. Preparing yourself to manage your symptoms can help you feel more positive about your future. How to manage lifestyle changes Managing stress Stress is your body's reaction to life changes and events, both good and bad. Stress can add to your feelings of depression. Learning to manage your stress can help lessen your feelings of depression. Try some of the following approaches to reducing your stress (stress reduction techniques): Listen to music that you enjoy and that inspires you. Try using a meditation pete or take a meditation class. Develop a practice that helps you connect with your spiritual self. Walk in nature, pray, or go to a place of sikh. Do some deep breathing. To do this, inhale slowly through your nose. Pause at the top of your inhale for a few seconds and then exhale slowly, letting your muscles relax. Practice yoga to help relax and work your muscles. Choose a stress reduction technique that suits your lifestyle and personality. These techniques take time and practice to develop. Set aside 5 15 minutes a day to do them. Therapists can offer training in these techniques. Other things you can do to manage stress include: Keeping a stress diary. Knowing your limits and saying no when you think something is too much. Paying attention to how you react to certain situations. You may not be able to control everything, but you can change your reaction. Adding humor to your life by watching funny films or TV shows. Making time for activities that you enjoy and that relax you. Medicines Medicines, such as antidepressants, are often a part of treatment for depression. Talk with your pharmacist or health care provider about all the medicines, supplements, and herbal products that you take, their possible side effects, and what medicines and other products are safe to take together. Make sure to report any side effects you may have to your health care provider. Relationships Your health care provider may suggest family therapy, couples therapy, or individual therapy as part of your treatment. How to recognize changes Everyone responds differently to treatment for depression. As you recover from depression, you may start to: Have more interest in doing activities. Feel less hopeless. Have more energy. Overeat less often, or have a better appetite. Have better mental focus. It is important to recognize if your depression is not getting better or is getting worse. The symptoms you had in the beginning may return, such as: Tiredness (fatigue) or low energy. Eating too much or too little. Sleeping too much or too little. Feeling restless, agitated, or hopeless. Trouble focusing or making decisions. Unexplained physical complaints. Feeling irritable, angry, or aggressive. If you or your family members notice these symptoms coming back, let your health care provider know right away. Follow these instructions at home: Activity Try to get some form of exercise each day, such as walking, biking, swimming, or lifting weights. Practice stress reduction techniques. Engage your mind by taking a class or doing some volunteer work. Lifestyle Get the right amount and quality of sleep. Cut down on using caffeine, tobacco, alcohol, and other potentially harmful substances. Eat a healthy diet that includes plenty of vegetables, fruits, whole grains, low-fat dairy products, and lean protein. Do not eat a lot of foods that are high in solid fats, added sugars, or salt (sodium). General instructions Take govc-yih-ssyinxi and prescription medicines only as told by your health care provider. Keep all follow-up visits as told by your health care provider. This is important. Where to find support Talking to others Friends and family members can be sources of support and guidance. Talk to trusted friends or family members about your condition. Explain your symptoms to them, and let them know that you are working with a health care provider to treat your depression. Tell friends and family members how they also can be helpful. Finances Find appropriate mental health providers that fit with your financial situation. Talk with your health care provider about options to get reduced prices on your medicines. Where to find more information You can find support in your area from: Anxiety and Depression Association of Su (ADAA): www.adaa.org Mental Health Su: www.mentalhealthamerica.net National [place] on Mental Illness: www.tyrone.org Contact a health care provider if: You stop taking your antidepressant medicines, and you have any of these symptoms: ?Nausea. ?Headache. ?Light-headedness. ?Chills and body aches. ?Not being able to sleep (insomnia). You or your friends and family think your depression is getting worse. Get help right away if: You have thoughts of hurting yourself or others. If you ever feel like you may hurt yourself or others, or have thoughts about taking your own life, get help right away. Go to your nearest emergency department or: Call your local emergency services (261 in the [place] Call a suicide crisis helpline, such as the National Suicide Prevention Lifeline at or 585 in the [place] This is open 24 hours a day in the [place] Text the Crisis Text Line at 691216 (in the [place] Summary If you are diagnosed with depression, preparing yourself to manage your symptoms is a good way to feel positive about your future. Work with your health care provider on a management plan that includes stress reduction techniques, medicines (if applicable), therapy, and healthy lifestyle habits. Keep talking with your health care provider about how your treatment is working. If you have thoughts about taking your own life, call a suicide crisis helpline or text a crisis text line. This information is not intended to replace advice given to you by your health care provider. Make sure you discuss any questions you have with your health care provider. Document Revised: 01/19/2022 Document Reviewed: 05/06/2020 [employer] Patient Education 2022 [employer]. 05/10/2023 09:05:58 Asthma, Adult Asthma, Adult Asthma is a long-term (chronic) condition that causes recurrent episodes in which the lower airways in the lungs become tight and narrow. The narrowing is caused by inflammation and tightening of the smooth muscle around the lower airways. Asthma episodes, also called asthma attacks or asthma flares, may cause coughing, making high-pitched whistling sounds when you breathe, most often when you breathe out (wheezing), shortness of breath, and chest pain. The airways may produce extra mucus caused by the inflammation and irritation. During an attack, it can be difficult to breathe. Asthma attacks can range from minor to life-threatening. Asthma cannot be cured, but medicines and lifestyle changes can help control it and treat acute attacks. It is important to keep your asthma well controlled so the condition does not interfere with your daily life. What are the causes? This condition is believed to be caused by inherited (genetic) and environmental factors, but its exact cause is not known. What can trigger an asthma attack? Many things can bring on an asthma attack or make symptoms worse. These triggers are different for every person. Common triggers include: Allergens and irritants like mold, dust, pet dander, cockroaches, pollen, air pollution, and chemical odors. Cigarette smoke. Weather changes and cold air. Stress and strong emotional responses such as crying or laughing hard. Certain medications such as aspirin or beta blockers. Infections and inflammatory conditions, such as the flu, a cold, pneumonia, or inflammation of the nasal membranes (rhinitis). Gastroesophageal reflux disease (GERD). What are the signs or symptoms? Symptoms may occur right after exposure to an asthma trigger or hours later and can vary by person. Common signs and symptoms include: Wheezing. Trouble breathing (shortness of breath). Excessive nighttime or clerk supervisor coughing. Chest tightness. Tiredness (fatigue) with minimal activity. Difficulty talking in complete sentences. Poor exercise tolerance. How is this diagnosed? This condition is diagnosed based on: A physical exam and your medical history. Tests, which may include: ?Lung function studies to evaluate the flow of air in your lungs. ?Allergy tests. ?Imaging tests, such as X-rays. How is this treated? There is no cure, but symptoms can be controlled with proper treatment. Treatment usually involves: Identifying and avoiding your asthma triggers. Inhaled medicines. Two types are commonly used to treat asthma, depending on severity: ?Controller medicines. These help prevent asthma symptoms from occurring. They are taken every day. ?Fast-acting reliever or rescue medicines. These quickly relieve asthma symptoms. They are used as needed and provide short-term relief. Using other medicines, such as: ?Allergy medicines, such as antihistamines, if your asthma attacks are triggered by allergens. ?Immune medicines (immunomodulators). These are medicines that help control the immune system. Using supplemental oxygen. This is only needed during a severe episode. Creating an asthma action plan. An asthma action plan is a written plan for managing and treating your asthma attacks. This plan includes: ?A list of your asthma triggers and how to avoid them. ?Information about when medicines should be taken and when their dosage should be changed. ?Instructions about using a device called a peak flow meter. A peak flow meter measures how well the lungs are working and the severity of your asthma. It helps you monitor your condition. Follow these instructions at home: Take svof-otj-kobbeob and prescription medicines only as told by your health care provider. Stay up to date on all vaccinations as recommended by your healthcare provider, including vaccines for the flu and pneumonia. Use a peak flow meter and keep track of your peak flow readings. Understand and use your asthma action plan to address any asthma flares. Do not smoke or allow anyone to smoke in your home. Contact a health care provider if: You have wheezing, shortness of breath, or a cough that is not responding to medicines. Your medicines are causing side effects, such as a rash, itching, swelling, or trouble breathing. You need to use a reliever medicine more than 2 3 times a week. Your peak flow reading is still at 50 79% of your personal best after following your action plan for 1 hour. You have a fever and shortness of breath. Get help right away if: You are getting worse and do not respond to treatment during an asthma attack. You are short of breath when at rest or when doing very little physical activity. You have difficulty eating, drinking, or talking. You have chest pain or tightness. You develop a fast heartbeat or palpitations. You have a bluish color to your lips or fingernails. You are light-headed or dizzy, or you faint. Your peak flow reading is less than 50% of your personal best. You feel too tired to breathe normally. These symptoms may be an emergency. Get help right away. Call 911. Do not wait to see if the symptoms will go away. Do not drive yourself to the hospital. Summary Asthma is a long-term (chronic) condition that causes recurrent episodes in which the airways become tight and narrow. Asthma episodes, also called asthma attacks or asthma flares, can cause coughing, wheezing, shortness of breath, and chest pain. Asthma cannot be cured, but medicines and lifestyle changes can help keep it well controlled and prevent asthma flares. Make sure you understand how to avoid triggers and how and when to use your medicines. Asthma attacks can range from minor to life-threatening. Get help right away if you have an asthma attack and do not respond to treatment with your usual rescue medicines. This information is not intended to replace advice given to you by your health care provider. Make sure you discuss any questions you have with your health care provider. Document Revised: 04/13/2022 Document Reviewed: 04/04/2022 [employer] Patient Education 2022 [employer]. [facility] 07-07-2022 Hospital Discharge instructions Patient Education 07/07/2022 13:39:05 Colon Polyps Colon Polyps Polyps are tissue growths inside the body. Polyps can grow in many places, including the large intestine (colon). A polyp may be a round bump or a mushroom-shaped growth. You could have one polyp or several. Most colon polyps are noncancerous (benign). However, some colon polyps can become cancerous over time. Finding and removing the polyps early can help prevent this. What are the causes? The exact cause of colon polyps is not known. What increases the risk? You are more likely to develop this condition if you: Have a family history of colon cancer or colon polyps. Are older than 50 or older than 45 if you are . Have inflammatory bowel disease, such as ulcerative colitis or Crohn's disease. Have certain hereditary conditions, such as: ?Familial adenomatous polyposis. ?Summers syndrome. ?Turcot syndrome. ?Peutz Jeghers syndrome. Are overweight. Smoke cigarettes. Do not get enough exercise. Drink too much alcohol. Eat a diet that is high in fat and red meat and low in fiber. Had childhood cancer that was treated with abdominal radiation. What are the signs or symptoms? Most polyps do not cause symptoms. If you have symptoms, they may include: Blood coming from your rectum when having a bowel movement. Blood in your stool. The stool may look dark red or black. Abdominal pain. A change in bowel habits, such as constipation or diarrhea. How is this diagnosed? This condition is diagnosed with a colonoscopy. This is a procedure in which a lighted, flexible scope is inserted into the anus and then passed into the colon to examine the area. Polyps are sometimes found when a colonoscopy is done as part of routine cancer screening tests. How is this treated? Treatment for this condition involves removing any polyps that are found. Most polyps can be removed during a colonoscopy. Those polyps will then be tested for cancer. Additional treatment may be needed depending on the results of testing. Follow these instructions at home: Lifestyle Maintain a healthy weight, or lose weight if recommended by your health care provider. Exercise every day or as told by your health care provider. Do not use any products that contain nicotine or tobacco, such as cigarettes and e-cigarettes. If you need help quitting, ask your health care provider. If you drink alcohol, limit how much you have: ?0 1 drink a day for women. ? 0 2 drinks a day for men. Be aware of how much alcohol is in your drink. In the [place] one drink equals one 12 oz bottle of beer (355 mL), one 5 oz glass of wine (148 mL), or one 1 oz shot of hard liquor (44 mL). Eating and drinking Eat foods that are high in fiber, such as fruits, vegetables, and whole grains. Eat foods that are high in calcium and vitamin D, such as milk, cheese, yogurt, eggs, liver, fish, and broccoli. Limit foods that are high in fat, such as fried foods and desserts. Limit the amount of red meat and processed meat you eat, such as hot dogs, sausage, clay, and lunch meats. General instructions Keep all follow-up visits as told by your health care provider. This is important. ?This includes having regularly scheduled colonoscopies. ?Talk to your health care provider about when you need a colonoscopy. Contact a health care provider if: You have new or worsening bleeding during a bowel movement. You have new or increased blood in your stool. You have a change in bowel habits. You lose weight for no known reason. Summary Polyps are tissue growths inside the body. Polyps can grow in many places, including the colon. Most colon polyps are noncancerous (benign), but some can become cancerous over time. This condition is diagnosed with a colonoscopy. Treatment for this condition involves removing any polyps that are found. Most polyps can be removed during a colonoscopy. This information is not intended to replace advice given to you by your health care provider. Make sure you discuss any questions you have with your health care provider. Document Released: 03/22/2005 Document Revised: 10/11/2018 Document Reviewed: 10/11/2018 [employer] Patient Education 2020 [employer]. 07/07/2022 12:57:04 Colonoscopy, Adult, Care After Colonoscopy, Adult, Care After This sheet gives you information about how to care for yourself after your procedure. Your health care provider may also give you more specific instructions. If you have problems or questions, contact your health care provider. What can I expect after the procedure? After the procedure, it is common to have: A small amount of blood in your stool for 24 hours after the procedure. Some gas. Mild abdominal cramping or bloating. Follow these instructions at home: General instructions For the first 24 hours after the procedure: ?Do not drive or use machinery. ?Do not sign important documents. ?Do not drink alcohol. ?Do your regular daily activities at a slower pace than normal. ?Eat soft, atuf-la-hohgvx foods. Take tpju-zru-isctzok or prescription medicines only as told by your health care provider. Relieving cramping and bloating Try walking around when you have cramps or feel bloated. Apply heat to your abdomen as told by your health care provider. Use a heat source that your health care provider recommends, such as a moist heat pack or a heating pad. ?Place a towel between your skin and the heat source. ?Leave the heat on for 20 30 minutes. ?Remove the heat if your skin turns bright red. This is especially important if you are unable to feel pain, heat, or cold. You may have a greater risk of getting burned. Eating and drinking Drink enough fluid to keep your urine pale yellow. Resume your normal diet as instructed by your health care provider. Avoid heavy or fried foods that are hard to digest. Avoid drinking alcohol for as long as instructed by your health care provider. Contact a health care provider if: You have blood in your stool 2 3 days after the procedure. Get help right away if: You have more than a small spotting of blood in your stool. You pass large blood clots in your stool. Your abdomen is swollen. You have nausea or vomiting. You have a fever. You have increasing abdominal pain that is not relieved with medicine. Summary After the procedure, it is common to have a small amount of blood in your stool. You may also have mild abdominal cramping and bloating. For the first 24 hours after the procedure, do not drive or use machinery, sign important documents, or drink alcohol. Contact your health care provider if you have a lot of blood in your stool, nausea or vomiting, a fever, or increased abdominal pain. This information is not intended to replace advice given to you by your health care provider. Make sure you discuss any questions you have with your health care provider. Document Released: 02/07/2005 Document Revised: 04/18/2018 Document Reviewed: 09/06/2016 [employer] Patient Education 2020 [employer] Follow Up Care 06/27/2022 14:47:12 With:Nayan Cherry Address:Unknown When: Unknown [facility] 07-07-2022 Evaluation + Plan note Extrac katerine from: Title:Pre-anesthesia - Endoscopy Author:Best Aguilar Jr., DO Date:07/07/22 Plan [place] [employer]esthesiologists (ASA) physical status classification: Class II. Anesthetic Preoperative Plan Anesthesia: General. . Anesthetic plan, risks, benefits, and alternatives discussed with the patient and/or family. Patient verbalized understanding. Future Appointments Appointment Date:05/10/2023 08:00:00 AM Scheduled Provider: Location:[facility] Appointment Type:FM Medicare Wellness Subsequent Future Scheduled Tests Laboratory* BUN 01/04/22 * Creatinine 01/04/22 * Electrolyte Panel 01/04/22 * CBC w/ Auto Diff 01/04/22 Radiology* CV Cardiovascular 12/13/21 [facility]12-19-2022 Hospital Discharge instructions Patient Education 06/27/2022 14:28:05 Obesity, Adult Obesity, Adult Obesity is the condition of having too much total body fat. Being overweight or obese means that your weight is greater than what is considered healthy for your body size. Obesity is determined by a measurement called BMI. BMI is an estimate of body fat and is calculated from height and weight. Foradults, a BMI of 30 or higher is considered obese. Obesity can lead to other health concerns and major illnesses, including: Stroke. Coronary artery disease (CAD). Type 2 diabetes. Some types of cancer, including cancers of the colon, breast, uterus, and gallbladder. Osteoarthritis. High blood pressure (hypertension). High cholesterol. Sleep apnea. Gallbladder stones. Infertility problems. What are the causes? Common causes of this condition include: Eating daily meals that are high in calories, sugar, and fat. Being born with genes that may make you more likely to become obese. Having a medical condition that causes obesity, including: ?Hypothyroidism. ?Polycystic ovarian syndrome (PCOS). ?Binge-eating disorder. ?Noonan syndrome. Taking certain medicines, such as steroids, antidepressants, and seizure medicines. Not being physically active (sedentary lifestyle). Not getting enough sleep. Drinking high amounts of sugar-sweetened beverages, such as soft drinks. What increases the risk? The following factors may make you more likely to develop this condition: Having a family history of obesity. Being a woman of descent. Being a man of descent. Living in an area with limited access to: ?Chaves, recreation centers, or sidewalks. ?Healthy food choices, such as grocery stores and [employer]. What are the signs or symptoms? The main sign of this condition is having too much body fat. How is this diagnosed? This condition is diagnosed based on: Your BMI. If you are an adult with a BMI of 30 or higher, you are considered obese. Your waist circumference. This measures the distance around your waistline. Your skinfold thickness. Your health care provider may gently pinch a fold of your skin and measureit. You may have other tests to check for underlying conditions. How is this treated? Treatment for this condition often includes changing your lifestyle. Treatment may include some or all of the following: Dietary changes. This may include developing a healthy meal plan. Regular physical activity. This may include activity that causes your heart to beat faster (aerobicexercise) and strength training. Work with your health care provider to design an exercise program that works for you. Medicine to help you lose weight if you are unable to lose 1 pound a week after 6 weeks of healthy eating and more physical activity. Treating conditions that cause the obesity (underlying conditions). Surgery. Surgical options may include gastric banding and gastric bypass. Surgery may be done if: ?Other treatments have not helped to improve your condition. ?You have a BMI of 40 or higher. ?You have life-threatening health problems related to obesity. Follow these instructions at home: Eating and drinking Follow recommendations from your health care provider about what you eat and drink. Your health care provider may advise you to: ?Limit fast food, sweets, and processed snack foods. ?Choose low-fat options, such as low-fat milk instead of whole milk. ?Eat 5 or more servings of fruits or vegetables every day. ?Eat at home more often. This gives you more control over what you eat. ?Choose healthy foods when you eat out. ?Learn to read food labels. This will help you understand how much food is considered 1 serving. ?Learn what a healthy serving size is. ?Keep low-fat snacks available. ?Limit sugary drinks, such as soda, fruit juice, sweetened iced tea, and flavored milk. Drink enough water to keep your urine pale yellow. Do not follow a fad diet. Fad diets can be unhealthy and even dangerous. Physical activity Exercise regularly, as told by your health care provider. ?Most adults should get up to 150 minutes of moderate-intensity exercise every week. ?Ask your health care provider what types of exercise are safe for you and how often you should exercise. Warm up and stretch before being active. Cool down and stretch after being active. Rest between periods of activity. Lifestyle Work with your health care provider and a dietitian to set a weight-loss goal that is healthy and reasonable for you. Limit your screen time. Find ways to reward yourself that do not involve food. Do not drink alcohol if: ?Your health care provider tells you not to drink. ?You are , may be , or are planning to become . If you drink alcohol: ?Limit how much you use to: ?0 1 drink a day for women. ?0 2 drinks a day for men. ?Be aware of how much alcohol is in your drink. In the [place] one drink equals one 12 oz bottle of beer (355 mL), one 5 oz glass of wine (148 mL), or one 1 oz glass of hard liquor (44 mL). General instructions Keep a weight-loss journal to keep track of the food you eat and how much exercise you get. Take rhyi-vqp-feotmbg and prescription medicines only as told by your health care provider. Take vitamins and supplements only as told by your health care provider. Consider joining a support group. Your health care provider may be able to recommend a support group. Keep all follow-up visits as told by your health care provider. This is important. Contact a health care provider if: You are unable to meet your weight loss goal after 6 weeks of dietary and lifestyle changes. Get help right away if you are having: Trouble breathing. Suicidal thoughts or behaviors. Summary Obesity is the condition of having too much total body fat. Being overweight or obese means that your weight is greater than what is considered healthy for your body size. Work with your health care provider and a dietitian to set a weight-loss goal that is healthy and reasonable for you. Exercise regularly, as told by your health care provider. Ask your health care provider what types of exercise are safe for you and how often you should exercise. This information is not intended to replace advice given to you by your health care provider. Make sure you discuss any questions you have with your health care provider. Document Released: 08/03/2005 Document Revised: 02/28/2019 Document Reviewed: 02/28/2019 [employer] Patient Education 2019 [employer]. [facility] [place] 11-01-2022 Hospital Discharge instructions Patient Education 05/10/2022 08:50:02 Calcium Content in Foods Calcium Content in Foods Calcium is the most abundant mineral in your body. Most of your body's calcium supply is stored in your bones and teeth. Calcium helps many parts of the body function normally, including: Blood and blood vessels. Nerves. Hormones. Muscles. Bones and teeth. When your calcium stores are low, you may be at risk for low bone mass, bone loss, and broken bones(fractures). When you get enough calcium, it helps to support strong bones and teeth throughout your life. Calcium is especially important for: Children during growth spurts. Girls during adolescence. Women who are or . Women after their menstrual cycle stops (postmenopause). Women whose menstrual cycle has stopped due to anorexia nervosa or regular intense exercise. People who cannot eat or digest dairy products. Vegans. What are tips for getting more calcium? General information Try to get most of your calcium from food. Eat foods that are high in calcium. Some people may benefit from taking calcium supplements. Check with your health care provider or diet and instrument specialist (dietitian) before starting any calcium supplements. Calcium supplementsmay interact with certain medicines. Too much calcium may cause other health problems, like constipation and kidney stones. For the body to absorb calcium, it needs vitamin D. Sources of vitamin D include: ?Skin exposure to direct sunlight. ?Foods, such as egg yolks, liver, saltwater fish, and fortified milk. ?Vitamin D supplements. Check with your health care provider or dietitian before starting any vitamin D supplements. What foods are high in calcium? High-calcium foods are those that contain more than 100 milligrams (mg) of calcium per serving. Fruits Fortified orange or other fruit juice, 300 mg per 8 oz serving. Vegetables [place] greens, 360 mg per 8 oz serving. Kale, 180 mg per 8 oz serving. Bok jenna, 160 mg per 8 oz serving. Grains Fortified qhcxa-tt-pcq cereals, 100 1,000 mg per 8 oz serving. Fortified frozen waffles, 200 mg in two waffles. Meats and other proteins Sardines, canned with bones, 325 mg per 3 oz serving. [place], canned with bones, 180 mg per 3 oz serving. Canned shrimp, 125 mg per 3 oz serving. Baked beans, 160 mg per 4 oz serving. Dairy Yogurt, plain, low-fat, 310 mg per 6 oz serving. Milk, 300 mg per 8 oz serving. Swiss cheese, 195 mg per 1 oz serving. Cheddar cheese, 205 mg per 1 oz serving. Cottage cheese 2%, 105 mg per 4 oz serving. Fortified soy, rice, or almond milk, 300 mg per 8 oz serving. The items listed above may not be a complete list of foods high in calcium. Actual amounts of calcium may be different depending on processing. Contact a dietitian for more information. What foods are lower in calcium? Foods lower in calcium are those that contain 50 mg of calcium or less per serving. Fruits Apple, about 6 mg in one apple. Banana, about 12 mg in one banana. Vegetables Lettuce, 19 mg per 2 oz serving. Tomato, about 11 mg in one tomato. Grains Rice, 4 mg per 6 oz serving. Boiled potatoes, 14 mg per 8 oz serving. White bread, 6 mg in one slice. Meats and other proteins Egg, 27 mg per 2 oz serving. Red meat, 7 mg per 4 oz serving. Chicken, 17 mg per 4 oz serving. Fish, cod or trout, 20 mg per 4 oz serving. The items listed above may not be a complete list of foods lower in calcium. Actual amounts of calcium may be different depending on processing. Contact a dietitian for more information. Summary Calcium is an important mineral in the body because it affects many functions. Getting enough calcium helps support strong bones and teeth throughout your life. Try to get most of your calcium from food. Calcium supplements may interact with certain medicines. Check with your health care provider before starting any calcium supplements. This information is not intended to replace advice given to you by your health care provider. Make sure you discuss any questions you have with your health care provider. Document Released: 02/07/2005 Document Revised: 06/19/2018 Document Reviewed: 06/19/2018 [employer] Patient Education 2020 [employer]. 05/10/2022 08:50:00 Budget-Friendly Healthy Eating Budget-Friendly Healthy Eating There are many ways to save money at the grocery store and continue to eat healthy. You can be successful if you: Plan meals according to your budget. Make a grocery list and only purchase food according to your grocery list. Prepare food yourself. What are tips for following this plan? Reading food labels Compare food labels between brand name foods and the store brand. Often the nutritional value is the same, but the store brand is lower cost. Look for products that do not have added sugar, fat, or salt (sodium). These often cost the same but are healthier for you. Products may be labeled as: ?Sugar-free. ?Nonfat. ?Low-fat. ?Sodium-free. ?Low-sodium. Look for lean ground beef labeled as at least 92% lean and 8% fat. Shopping Buy only the items on your grocery list and go only to the areas of the store that have the items on your list. Use coupons only for foods and brands you normally buy. Avoid buying items you wouldn't normally buy simply because they are on sale. Check online and in newspapers for weekly deals. Buy healthy items from the bulk bins when available, such as herbs, spices, flour, pasta, nuts, anddried fruit. Buy fruits and vegetables that are in season. Prices are usually lower on in- season produce. Look at the unit nascimento on the nascimento tag. Use it to compare different brands and sizes to find out which item is the best deal. Choose healthy items that are often low-cost, such as carrots, potatoes, apples, bananas, and oranges. Dried or canned beans are a low-cost protein source. Buy in bulk and freeze extra food. Items you can buy in bulk include meats, fish, poultry, frozen fruits, and frozen vegetables. Avoid buying jpyix-sz-wni foods, such as pre-cut fruits and vegetables and pre-made salads. If possible, shop around to discover where you can find the best prices. Consider other retailers such as Service[employer] stores, larger wholesale stores, local fruit and vegetable stands, and [employer] markets. Do not shop when you are hungry. If you shop while hungry, it may be hard to stick to your list andbudget. Resist impulse buying. Use your grocery list as your official plan for the week. Buy a variety of vegetables and fruits by purchasing fresh, frozen, and canned items. Look at the top and bottom shelves for deals. Foods at eye level (eye level of an adult or child) are usually more expensive. Be efficient with your time when shopping. The more time you spend at the store, the more money youare likely to spend. To save money when choosing more expensive foods like meats and dairy: ?Choose cheaper cuts of meat, such as bone-in chicken thighs and drumsticks instead of skinless andboneless chicken. When you are ready to prepare the chicken, you can remove the skin yourself to make it healthier. ?Choose lean meats like chicken or turkey instead of beef. ?Choose canned seafood, such as tuna, salmon, or sardines. ?Buy eggs as a low-cost source of protein. ?Buy dried beans and peas, such as lentils, split peas, or kidney beans instead of meats. Dried beans and peas are a good alternative source of protein. ?Buy the larger tubs of yogurt instead of individual-sized containers. Choose water instead of sodas and other sweetened beverages. Avoid buying chips, cookies, and other junk food. These items are usually expensive and not healthy. Cooking Make extra food and freeze the extras in meal-sized containers or in individual portions for fast meals and snacks. Pre-cook on days when you have extra time to prepare meals in advance. You can keep these meals in the fridge or freezer and reheat for a quick meal. When you come home from the grocery store, wash, peel, and cut fruits and vegetables so they are ready to use and eat. This will help reduce food waste. Meal planning Do not eat out or get fast food. Prepare food at home. Make a grocery list and make sure to bring it with you to the store. If you have a smart phone, youcould use your phone to create your shopping list. Plan meals and snacks according to a grocery list and budget you create. Use leftovers in your meal plan for the week. Look for recipes where you can cook once and make enough food for two meals. Include budget-friendly meals like stews, casseroles, and stir-wright dishes. Try some meatless meals or try no cook meals like salads. Make sure that half your plate is filled with fruits or vegetables. Choose from fresh, frozen, or canned fruits and vegetables. If eating canned, remember to rinse them before eating. This will remove any excess salt added for packaging. Summary Eating healthy on a budget is possible if you plan your meals according to your budget, purchase according to your budget and grocery list, and prepare food yourself. Tips for buying more food on a limited budget include buying generic brands, using coupons only forfoods you normally buy, and buying healthy items from the bulk bins when available. Tips for buying cheaper food to replace expensive food include choosing cheaper, lean cuts of meat,and buying dried beans and peas. This information is not intended to replace advice given to you by your health care provider. Make sure you discuss any questions you have with your health care provider. Document Released: 02/27/2015 Document Revised: 06/27/2018 Document Reviewed: 06/27/2018 [employer] Patient Education 2020 [employer] 05/10/2022 08:49:58 BMI for Adults BMI for Adults Body mass index (BMI) is a number that is calculated from a person's weight and height. BMI may help to estimate how much of a person's weight is composed of fat. BMI can help identify those who may be at higher risk for certain medical problems. How is BMI used with adults? BMI is used as a screening tool to identify possible weight problems. It is used to check whether aperson is obese, overweight, healthy weight, or underweight. How is BMI calculated? BMI measures your weight and compares it to your height. This can be done either in Indian ([place] or metric measurements. Note that charts are available to help you find your BMI quickly and easily without having to do these calculations yourself. To calculate your BMI in Indian ([place] measurements, your health care provider will: 1.Measure your weight in pounds (lb). 2.Multiply the number of pounds by 703. For example, for a person who weighs 180 lb, multiply that number by 703, which equals 126,540. 3.Measure your height in inches (in). Then multiply that number by itself to get a measurement called inches squared. For example, for a person who is 70 in tall, the inches squared measurement is 70 in x 70 in, which equals 4900 inches squared. 4.Divide the total from Step 2 (number of lb x 703) by the total from Step 3 (inches squared): 126,540 4900 = 25.8. This is your BMI. To calculate your BMI in metric measurements, your health care provider will: 1.Measure your weight in kilograms (kg). 2.Measure your height in meters (m). Then multiply that number by itself to get a measurement called meters squared. For example, for a person who is 1.75 m tall, the meters squared measurement is 1.75 m x 1.75 m, which is equal to 3.1 meters squared. 3.Divide the number of kilograms (your weight) by the meters squared number. In this example: 70 3.1 = 22.6. This is your BMI. How is BMI interpreted? To interpret your results, your health care provider will use BMI charts to identify whether you are underweight, normal weight, overweight, or obese. The following guidelines will be used: Underweight: BMI less than 18.5. Normal weight: BMI between 18.5 and 24.9. Overweight: BMI between 25 and 29.9. Obese: BMI of 30 and above. Please note: Weight includes both fat and muscle, so someone with a muscular build, such as an athlete, may havea BMI that is higher than 24.9. In cases like these, BMI is not an accurate measure of body fat. To determine if excess body fat is the cause of a BMI of 25 or higher, further assessments may needto be done by a health care provider. BMI is usually interpreted in the same way for men and women. Why is BMI a useful tool? BMI is useful in two ways: Identifying a weight problem that may be related to a medical condition, or that may increase the risk for medical problems. Promoting lifestyle and diet changes in order to reach a healthy weight. Summary Body mass index (BMI) is a number that is calculated from a person's weight and height. BMI may help to estimate how much of a person's weight is composed of fat. BMI can help identify those who may be at higher risk for certain medical problems. BMI can be measured using Indian measurements or metric measurements. To interpret your results, your health care provider will use BMI charts to identify whether you are underweight, normal weight, overweight, or obese. This information is not intended to replace advice given to you by your health care provider. Make sure you discuss any questions you have with your health care provider. Document Released: 03/07/2005 Document Revised: 06/08/2018 Document Reviewed: 05/09/2018 [employer] Patient Education 2020 [employer]. [facility] 08-15-2022 History of Present illness Narrative* Otis Edward PTA - 02/21/2022 10:30 AM EDT Images from the original note were not included. [facility] Outpatient Physical Therapy Daily Note Date: 02/21/2022 Patient Name: Angela Alonzo : 1955 (66 y.o.) Referring Provider (secondary): Joan Warner Diagnosis: R TKA Treatment Diagnosis: R knee mobility deficit s/p R TKA Onset Date: 01/03/22 PT Insurance Information: E-Medicare/Medicare part* Total # of Visits Approved: 12 Per Physician Order Total # of Visits to Date: 11 Plan of Care/Certification Expiration Date: 03/10/22 Pre-Treatment Pain: 0/10 Assessment Assessment: Patient reports no R knee pain this morning, but still has some posterior knee stiffness. Completed ex per flowsheet. Patient is able to complete B/L tandem stance x10 sec 2:3 trials. Plan to continue x1 visit and then D/C to HEP. Plan Continue with current plan of care Exercises/Modalities/Manual: See DocFlow Sheet Education: Goals (Total # of Visits to Date: 11) Short Term Goals Time Frame for Short term goals: 6 Short term goal 1: Pt to increase R knee flexion PROM to 115 deg to improve functional movement. - MET STG Goal 1 Status:: Met Short term goal 2: Pt to increase R knee extension PROM to 2 deg from neutral to improve gait pattern and amb - MET STG Goal 2 Status:: Met Short term goal 3: Pt to become independent with HEP. 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 - MET LTG Goal 1 Status:: Met FDC goal 2: Pt to increase tandem stance balance to 10 s 2:3 trials for improved stability and safe amb. - MET LTG Goal 2 Status:: Met termite technician goal 3: Pt to be able to amb on unlevel surface without an AD and no deviations for 150ft. 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 [facility] Outpatient Physical Therapy Daily Note Date: 02/18/2022 Patient Name: Angela Alonzo : 1955 (66 y.o.) Referring Provider (secondary): Joan Warner Diagnosis: R TKA Treatment Diagnosis: R knee mobility deficit s/p R TKA Onset Date: 01/03/22 PT Insurance Information: E-Medicare/Medicare part* Total # of Visits Approved: 12 Per Physician Order Total # of Visits to Date: 10 Plan of Care/Certification Expiration Date: 03/10/22 Pre-Treatment Pain: 0/10 Assessment Assessment: Patient denies R knee pain again this morning, but notes posterior knee tightness. Continued with strengthening ex per flowsheet. R knee PROM flex = 115 deg. Plan to continue x2 visits and D/C. Plan Continue with current plan of care Exercises/Modalities/Manual: See DocFlow Sheet Education: Goals (Total # of Visits to Date: 10) Short Term Goals Time Frame for Short term goals: 6 Short term goal 1: Pt to increase R knee flexion PROM to 115 deg to improve functional movement. - MET STG Goal 1 Status:: Met Short term goal 2: Pt to increase R knee extension PROM to 2 deg from neutral to improve gait pattern and amb - MET STG Goal 2 Status:: Met Short term goal 3: Pt to become independent with HEP. - MET STG Goal 3 Status:: Met Mcc Goals Time Frame for FDC goals : 12 FDC goal 1: Pt to increase R knee flexion MMT to 4+/5 to help with amb and stairs. - MET LTG Goal 1 Status:: Met FDC goal 2: Pt to increase tandem stance balance to 10 s 2:3 trials for improved stability and safe amb. 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 Post Treatment Pain: 0/10 Time In: 1035 Time Out : 1115 Timed Code Treatment Minutes: 40 Minutes Total Treatment Time: 40 Minutes Otis Edward PTA Date: 02/18/2022 [facility] Work Phone: [phone]) 171-699708-08-2022 History of Present illness Narrative* Marcella Dover, CDL TRUCK DRIVER - 02/14/2022 9:45 AM EDT Images from the original note were not included. [facility] Outpatient Physical Therapy Daily Note Date: 02/14/2022 Patient Name: Angela Alonzo : 1955 (66 y.o.) Referring Provider (secondary): Joan Warner Diagnosis: R TKA Treatment Diagnosis: R knee mobility deficit s/p R TKA Onset Date: 01/03/22 PT Insurance Information: E-Medicare/Medicare part* Total # of Visits Approved: 12 Per Physician Order Total # of Visits to Date: 8 Plan of Care/Certification Expiration Date: 03/10/22 Pre-Treatment Pain: 0/10 Assessment Assessment: Patient arrives without c/o pain just has stiffness. Pt completed exercies per log without complication. Manual therapy completed at end of session to improve with tightness behind knee. Knee flexion strengtn = 4+/5. Plan to continue wtih current POC. Plan Continue with current plan of care Exercises/Modalities/Manual: See DocFlow Sheet Education: Goals (Total # of Visits to Date: 8) Short Term Goals Time Frame for Short term goals: 6 Short term goal 1: Pt to increase R knee flexion PROM to 115 deg to improve functional movement. - MET STG Goal 1 Status:: Met Short term goal 2: Pt to increase R knee extension PROM to 2 deg from neutral to improve gait pattern and amb - MET STG Goal 2 Status:: Met Short term goal 3: Pt to become independent with HEP. - MET STG Goal 3 Status:: Met Mcc Goals Time Frame for termite technician goals : 12 termite technician goal 1: Pt to increase R knee flexion MMT to 4+/5 to help with amb and stairs. termite technician goal 2: Pt to increase tandem stance balance to 10 s 2:3 trials for improved stability and safe amb. 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 Post Treatment Pain: 0/10 Time In: 0946 Time Out: 1034 Timed Code Treatment Minutes: 48 Minutes Total Treatment Time: 48Minutes Marcella Dover, TAYLOR Date: 02/14/2022 documented in this encounterB[facility] opinions.h Phone: [phone]) [phone] History of Present illness Narrative* Georgia Pham - 02/11/2022 1:00 PM EDT [facility] Outpatient Physical Therapy Daily Note Date: 02/11/2022 Patient Name: Angela Alonzo : 1955 (66 y.o.) Referring Provider (secondary): Joan Warner Diagnosis: R TKA Treatment Diagnosis: R knee mobility deficit s/p R TKA Onset Date: 01/03/22 PT Insurance Information: E-Medicare/Medicare part* Total # of Visits Approved: 12 Per Physician Order Total # of Visits to Date: 7 Plan of Care/Certification Expiration Date: 03/10/22 Pre-Treatment Pain: 3/10 Assessment Assessment: Pt presents with 3/10 pain and stiffness in the R knee. Pt reported doing a lot of walking with shopping a day ago. R knee PROM 1-112 deg of extension and flexion. Pt reports diffculty with going down steps, added lateral lowers to improve amb down the steps. Pt completed therex and manual per Doc flow Plan Continue with current plan of care Exercises/Modalities/Manual: See DocFlow Sheet Education: selected exercises and that they will help with stair amb. Goals (Total # of Visits to Date: 7) Short Term Goals Time Frame for Short term goals: 6 Short term goal 1: Pt to increase R knee flexion PROM to 115 deg to improve functional movement. - MET STG Goal 1 Status:: Met Short term goal 2: Pt to increase R knee extension PROM to 2 deg from neutral to improve gait pattern and amb - MET STG Goal 2 Status:: Met Short term goal 3: Pt to become independent with HEP. - MET STG Goal 3 Status:: Met Mcc Goals Time Frame for FDC goals : 12 FDC goal 1: Pt to increase R knee flexion MMT to 4+/5 to help with amb and stairs. termite technician goal 2: Pt to increase tandem stance balance to 10 s 2:3 trials for improved stability and safe amb. 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 Post Treatment Pain: 09/16 Time In: 1302 Time Out: 1342 Timed Code Treatment Minutes: 40 Minutes Total Treatment Time: 40 Minutes Georgia Pham, SPT /Directly Supervised by Kyara Villegas, PT Date: 02/11/2022 [facility] [employer] Phone: [phone]) 988-862608-01-2022 History of Present illness Narrative* Otis Edward, TAYLOR - 02/07/2022 10:30 AM EDT Images from the original note were not included. [facility] Outpatient Physical Therapy Daily Note Date: 02/07/2022 Patient Name: Angela Alonzo : 1955 (66 y.o.) Referring Provider (secondary): Joan Warner Diagnosis: R TKA Treatment Diagnosis: R knee mobility deficit s/p R TKA Onset Date: 01/03/22 PT Insurance Information: E-Medicare/Medicare part* Total # of Visits Approved: 12 Per Physician Order Total # of Visits to Date: 5 Plan of Care/Certification Expiration Date: 03/10/22 Pre-Treatment Pain: 3/10 Assessment Assessment: Patient states R knee pain is a 3/10 this morning. Patient notes she has been having difficutly sleeping at night due to knee discomfort and inability to get comfortable when sleeping. Patient notes posterior knee tightness is improving. Continued with strengthening and ROM ex per flowsheet. R knee PROM = 1-115 deg. Will continue to progress. Plan Continue with current plan of care Exercises/Modalities/Manual: See DocFlow Sheet Education: Goals (Total # of Visits to Date: 5) Short Term Goals Time Frame for Short term goals: 6 Short term goal 1: Pt to increase R knee flexion PROM to 115 deg to improve functional movement. - MET STG Goal 1 Status:: Met Short term goal 2: Pt to increase R knee extension PROM to 2 deg from neutral to improve gait pattern and amb - MET STG Goal 2 Status:: Met Short term goal 3: Pt to become independent with HEP. 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 FDC goal 2: Pt to increase tandem stance balance to 10 s 2:3 trials for improved stability and safe amb. 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 Post Treatment Pain: 09/16 Time In: 1033 Time Out : 1115 Timed Code Treatment Minutes: 42 Minutes Total Treatment Time: 42 Minutes Otis Edward PTA Date: 02/07/2022 documented in this encounterBON opinions.h Phone: [phone]) [phone] History of Present illness Narrative* Candida Salomon - 01/31/2022 1:00 PM EDT Images from the original note were not included. Physical Therapy [facility] Outpatient Physical Therapy Daily Note Date: 01/31/2022 Patient Name: Angela Alonzo : 1955 (66 y.o.) Referring Provider (secondary): Joan Warner Diagnosis: R TKA Treatment Diagnosis: R knee mobility deficit s/p R TKA Onset Date: 01/03/22 PT Insurance Information: E-Medicare/Medicare part* Total # of Visits Approved: 12 Per Physician Order Total # of Visits to Date: 2 Plan of Care/Certification Expiration Date: 03/10/22 Pre-Treatment Pain: 11/16 Assessment Assessment: Patient rates pain today prior to session as 5/10. Reports compliance with HEP. Completes exercises as outlined above with good tolerance. Concluded session with soft tissue mobs to incision site and hamstring. PROM R knee ext 2 degrees. Patient states she is to see Dr. Warner tomorrow. Plan Continue with current plan of care Exercises/Modalities/Manual: See DocFlow Sheet Education: Goals (Total # of Visits to Date: 2) Short Term Goals Time Frame for Short term goals: 6 Short term goal 1: Pt to increase R knee flexion PROM to 115 deg to improve functional movement. Short term goal 2: Pt to increase R knee extension PROM to 2 deg from neutral to improve gait pattern and amb Short term goal 3: Pt to become independent with HEP. 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 termite technician goal 2: Pt to increase tandem stance balance to 10 s 2:3 trials for improved stability and safe amb. 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 Post Treatment Pain: 09/16 Time In:1255 Time Out : 1340 Timed Code Treatment Minutes: 45 Minutes Minutes Candida Salomon PTA Date: 01/31/2022 documented in this encounterB[facility].h Phone: [phone]) 330-525606-27-2022 Evaluation + Plan noteExtracted from: Title:Op Note skeleton Author:Joan Warner DO Date:01/03/22 Impression and Plan Diagnosis Pre-op dx-rt knee oa/pain Post-op dx-same Procedure-rt tka Anesthesia-gen block EBL-0 TT-see nn To Recovery Room in stable and satisfactory condition.. Extracted from: Title:Anesthesia Pre-Op GA/block Author:Wali Garg Date:01/03/22 Plan [place] [employer]esthesiologists (ASA) physical status classification: Class II. Anesthetic Preoperative Plan Anesthesia: General. , Regional block for post op pain control., discussed the benefits of obstaining from tobacco products. Anesthetic plan, risks, benefits, and alternatives discussed with the patient and/or family. Patient verbalized understanding. Pt agrees with anesthetic plan and accepts all risks including but not limited to; Bleeding, infection(including Covid-19), nerve injury, dental injury, eye injury, headache, low blood pressure, serious problems with the heart and lungs, allergic reactions, failed block and .. Future Appointments Appointment Date:01/17/2022 11:40:00 AM Scheduled Provider: Location:[facility] Appointment Type: Nurse Visit Appointment Date:01/18/2022 11:00:00 AM Scheduled Provider:Audelia VEGA CNP [facility] ([facility] Future Scheduled Tests Laboratory* BUN 01/04/22 * Creatinine 01/04/22 * Electrolyte Panel 01/04/22 * CBC w/ Auto Diff 01/04/22 Radiology* CV Cardiovascular 12/13/21 [facility]06-10-2022 Hospital Discharge instructions Follow Up Care 12/17/2021 10:52:35 With:Sharmin HALL, Marlon Negrete Address: [address] [place], [place] [id number] When:6 months [facility]06-10-2022 Hospital Discharge instructions Patient Education 12/17/2021 10:52:21 CV - Cardiovascular Discharge Instructions (CUSTOM) [place], [place] CARDIOVASCULAR DISCHARGE INSTRUCTIONS Diet: Resume pre-procedure diet. Increase water intake the next 2 days to flush dye out of the body. Activity: If radial access: Limit your activity today. Do not operate a vehicle, machinery or power tools. NO LIFTING OVER 3 POUNDS for 3 days. Do not bend your wrist for 24 hours. May resume driving in 24 hours. No sexual activity for 1 week. Let pain/discomfort guide your activity. If you are having pain, stop. Return to the Emergency Room if you have trouble breathing, walking or nausea and vomiting. Medications: Resume pre-procedure medication, unless otherwise directed. *Minimal pain, soreness and/or discomfort is expected. *You may take OTC non-steroidal anti-inflammatory to manage discomfort, unless contraindicated. If pain is not controlled with the above medications, contact your physician. Site Care: Do not remove dressing for 24 hours unless it becomes saturated, then replace. Keep site clean and dry; inspect site daily. Do not use any lotions, powders, or ointments at the groin or wrist site for 1 week. May shower 24 hours after the procedure. Clean site with soap and water. Pat dry and apply band aid. No tub baths, swimming or hot tubs for 3 days Post Procedure: Soreness and tenderness to the site can last up to one week. Bruising may occur to site. A responsible adult should be with you for the first 24 hours after you arrive home. Keep follow-up appointment. No smoking for 24 hours as it increases the risk of developing blood clots. If you are interested in smoking cessation, contact [facility] at [phone], ext. [phone]. In the event you are unable to reach your physician, please call [facility] at [phone] and the vacuum drier operator will assist you. Seek Immediate Medical Care for: Bleeding: Apply continuous pressure to the site and Call 911. Should the arm or leg become cold, numb, blue or white call your physician immediately. Signs of infection are redness, warmth, swelling, increased tenderness, colored drainage, fever or chills Chest pain Follow Up Care 12/13/2021 12:37:10 With:Marlon Finney Address: [address] [place], [place] [id number] [facility] (1) When:01/18/2022 11:00:00 Comments:Keep scheduled appointment [facility]06-06-2022 Hospital Discharge instructions Patient Education 12/13/2021 09:45:12 Coronary Angiogram Coronary Angiogram A coronary angiogram is an X-ray procedure that is used to examine the arteries in the heart. In this procedure, a dye (contrast dye) is injected through a long, thin tube (catheter). The catheter isinserted through the groin, wrist, or arm. The dye is injected into each artery, then X-rays are taken to show if there is a blockage in the arteries of the heart. This procedure can also show if youhave valve disease or a disease of the aorta, and it can be used to check the overall function of your heart muscle. You may have a coronary angiogram if: You are having chest pain, or other symptoms of angina, and you are at risk for heart disease. You have an abnormal electrocardiogram (ECG) or stress test. You have chest pain and heart failure. You are having irregular heart rhythms. You and your health care provider determine that the benefits of the test information outweigh the risks of the procedure. Let your health care provider know about: Any allergies you have, including allergies to contrast dye. All medicines you are taking, including vitamins, herbs, eye drops, creams, and pvsv-fwh-dukuucx medicines. Any problems you or family members have had with anesthetic medicines. Any blood disorders you have. Any surgeries you have had. History of kidney problems or kidney failure. Any medical conditions you have. Whether you are or may be . What are the risks? Generally, this is a safe procedure. However, problems may occur, including: Infection. Allergic reaction to medicines or dyes that are used. Bleeding from the access site or other locations. Kidney injury, especially in people with impaired kidney function. Stroke (rare). Heart attack (rare). Damage to other structures or organs. What happens before the procedure? Staying hydrated Follow instructions from your health care provider about hydration, which may include: Up to 2 hours before the procedure you may continue to drink clear liquids, such as water, clear fruit juice, black coffee, and plain tea. Eating and drinking restrictions Follow instructions from your health care provider about eating and drinking, which may include: 8 hours before the procedure stop eating heavy meals or foods such as meat, fried foods, or fatty foods. 6 hours before the procedure stop eating light meals or foods, such as toast or cereal. 2 hours before the procedure stop drinking clear liquids. General instructions Ask your health care provider about: ?Changing or stopping your regular medicines. This is especially important if you are taking diabetes medicines or blood thinners. ?Taking medicines such as ibuprofen. These medicines can thin your blood. Do not take these medicines before your procedure if your health care provider instructs you not to, though aspirin may be recommended prior to coronary angiograms. Plan to have someone take you home from the hospital or clinic. You may need to have blood tests or X-rays done. What happens during the procedure? An IV tube will be inserted into one of your veins. You will be given one or more of the following: ?A medicine to help you relax (sedative). ?A medicine to numb the area where the catheter will be inserted into an artery (local anesthetic). To reduce your risk of infection: ?Your health care team will wash or sanitize their hands. ?Your skin will be washed with soap. ?Hair may be removed from the area where the catheter will be inserted. You will be connected to a continuous ECG monitor. The catheter will be inserted into an artery. The location may be in your groin, in your wrist, or in the fold of your arm (near your elbow). A type of X-ray (fluoroscopy) will be used to help guide the catheter to the opening of the blood vessel that is being examined. A dye will be injected into the catheter, and X-rays will be taken. The dye will help to show whereany narrowing or blockages are located in the heart arteries. Tell your health care provider if you have any chest pain or trouble breathing during the procedure. If blockages are found, your health care provider may perform another procedure, such as inserting a coronary stent. The procedure may vary among health care providers and hospitals. What happens after the procedure? After the procedure, you will need to keep the area still for a few hours, or for as long as told by your health care provider. If the procedure is done through the groin, you will be instructed to not bend and not cross your legs. The insertion site will be checked frequently. The pulse in your foot or wrist will be checked frequently. You may have additional blood tests, X-rays, and a test that records the electrical activity of your heart (ECG). Do not drive for 24 hours if you were given a sedative. Summary A coronary angiogram is an X-ray procedure that is used to look into the arteries in the heart. During the procedure, a dye (contrast dye) is injected through a long, thin tube (catheter). The catheter is inserted through the groin, wrist, or arm. Tell your health care provider about any allergies you have, including allergies to contrast dye. After the procedure, you will need to keep the area still for a few hours, or for as long as told by your health care provider. This information is not intended to replace advice given to you by your health care provider. Make sure you discuss any questions you have with your health care provider. Document Released: 12/31/2003 Document Revised: 06/08/2018 Document Reviewed: 04/07/2017 [employer] Patient Education 2020 [employer]. Follow Up Care 11/24/2021 09:56:15 With:Marlon Finney MD Address: [address] [place] [address] [place] [address] When: Unknown [facility]06-02-2022 Evaluation + Plan note Future Appointments Appointment Date:12/17/2021 10:00:00 AM Scheduled Provider: [facility] Appointment Type:CV Heart Cath (FT) Appointment Date:12/27/2021 02:00:00 PM Scheduled Provider: Location:[facility] [place] Appointment Type:FM Nurse Visit Appointment Date:01/03/2022 10:00:00 AM Scheduled Provider: Location:[facility] Appointment Type:Surgery FT Future Scheduled Tests Radiology* CV Cardiovascular 12/13/21 * CV Cardiovascular 12/17/21 [facility]04-18-2022 Hospital Discharge instructions Patient Education 10/25/2021 13:36:54 Allergic Rhinitis, Adult Allergic Rhinitis, Adult Allergic rhinitis is an allergic reaction that affects the mucous membrane inside the nose. It causes sneezing, a runny or stuffy nose, and the feeling of mucus going down the back of the throat (postnasal drip). Allergic rhinitis can be mild to severe. There are two types of allergic rhinitis: Seasonal. This type is also called hay fever. It happens only during certain seasons. Perennial. This type can happen at any time of the year. What are the causes? This condition happens when the body's defense system (immune system) responds to certain harmless substances called allergens as though they were germs. Seasonal allergic rhinitis is triggered by pollen, which can come from grasses, trees, and weeds. Perennial allergic rhinitis may be caused by: House dust mites. Pet dander. Mold spores. What are the signs or symptoms? Symptoms of this condition include: Sneezing. Runny or stuffy nose (nasal congestion). Postnasal drip. Itchy nose. Tearing of the eyes. Trouble sleeping. Daytime sleepiness. How is this diagnosed? This condition may be diagnosed based on: Your medical history. A physical exam. Tests to check for related conditions, such as: ?Asthma. ?[place] eye. ?Ear infection. ?Upper respiratory infection. Tests to find out which allergens trigger your symptoms. These may include skin or blood tests. How is this treated? There is no cure for this condition, but treatment can help control symptoms. Treatment may include: Taking medicines that block allergy symptoms, such as antihistamines. Medicine may be given as a shot, nasal spray, or pill. Avoiding the allergen. Desensitization. This treatment involves getting ongoing shots until your body becomes less sensitive to the allergen. This treatment may be done if other treatments do not help. If taking medicine and avoiding the allergen does not work, new, stronger medicines may be prescribed. Follow these instructions at home: Find out what you are allergic to. Common allergens include smoke, dust, and pollen. Avoid the things you are allergic to. These are some things you can do to help avoid allergens: ?Replace carpet with wood, tile, or vinyl maral. Carpet can trap dander and dust. ?Do not smoke. Do not allow smoking in your home. ?Change your heating and air conditioning filter at least once a month. ?During allergy season: ?Keep windows closed as much as possible. ?Plan outdoor activities when pollen counts are lowest. This is usually during the evening hours. ?When coming indoors, change clothing and shower before sitting on furniture or bedding. Take ldxv-uiu-vzbvpte and prescription medicines only as told by your health care provider. Keep all follow-up visits as told by your health care provider. This is important. Contact a health care provider if: You have a fever. You develop a persistent cough. You make whistling sounds when you breathe (you wheeze). Your symptoms interfere with your normal daily activities. Get help right away if: You have shortness of breath. Summary This condition can be managed by taking medicines as directed and avoiding allergens. Contact your health care provider if you develop a persistent cough or fever. During allergy season, keep windows closed as much as possible. This information is not intended to replace advice given to you by your health care provider. Make sure you discuss any questions you have with your health care provider. Document Released: 03/21/2002 Document Revised: 06/08/2018 Document Reviewed: 08/03/2017 [employer] Patient Education 2020 [employer] Follow Up Care 10/25/2021 10:35:28 With:RITU HALL FAAFP, LALA Rob Address: When: Unknown Comments:return as otherwise scheduled [facility] 06-02-2020 Evaluation + Plan note Future Appointments Appointment Date:12/03/2021 03:00:00 PM Scheduled Provider: Location[facility] Appointment Type:CV Echo (FT) Appointment Date:12/09/2021 08:00:00 AM Scheduled Provider: [facility] Appointment Type:NM Myocard Spect Multi Rest/Stress-Res Appointment Date:12/09/2021 09:00:00 AM Scheduled Provider: Location[facility] Appointment Type:NM Myocard Spect Multi Rest/Stress - R Appointment Date:12/09/2021 09:30:00 AM Scheduled Provider: Location:[facility] Appointment Type:NM Myocard Spect Multi Rest/Stress-Str Appointment Date:12/09/2021 10:30:00 AM Scheduled Provider: [facility] Appointment Type:NM Myocar Spect Multi Rest/Stress - St Appointment Date:12/13/2021 09:30:00 AM Scheduled Provider:Audelia VEGA CNP [facility] Type:Cardiology Follow Up (FT) Appointment Date:12/13/2021 02:00:00 PM Scheduled Provider: [facility] Appointment Type:FM Nurse Visit Appointment Date:01/03/2022 10:00:00 AM Scheduled Provider: Location:[facility] Appointment Type:Surgery FT Future Scheduled Tests Radiology* NM Myocardial Spect Rest/Stress 1 Day 12/09/21 * Echo Transthoracic Complete 12/03/21 [facility] Evaluation + Plan note Future Appointments Appointment Date:10/18/2021 09:40:00 AM Scheduled Provider: Location:[facility] [place] Appointment Type:FM Nurse Visit [facility] Evaluation + Plan note Future Appointments Appointment Date:11/01/2021 09:40:00 AM Scheduled Provider: Location:[facility] [place] Appointment Type:FM Nurse Visit [facility] Evaluation + Plan note Future Appointments Appointment Date:11/01/2021 09:40:00 AM Scheduled Provider: Location:[facility] Appointment Type:FM Nurse Visit Appointment Date:11/10/2021 08:30:00 AM Scheduled Provider: Location:[facility] Appointment Type:Surgical PAT FT Appointment Date:11/29/2021 10:50:00 AM Scheduled Provider: Location:[facility] Appointment Type:Surgery FT [facility] Evaluation + Plan note Future Appointments Appointment Date:11/10/2021 08:30:00 AM Scheduled Provider: Location:[facility] Appointment Type:Surgical PAT FT Appointment Date:11/15/2021 09:40:00 AM Scheduled Provider: Location:[facility] Appointment Type:FM Nurse Visit Appointment Date:11/26/2021 09:40:00 AM Scheduled Provider: Location:[facility] [place] Appointment Type:FM Nurse Visit Appointment Date:11/29/2021 10:50:00 AM Scheduled Provider: Location:[facility] Appointment Type:Surgery FT [facility] Evaluation + Plan note Future Appointments Appointment Date:11/15/2021 09:40:00 AM Scheduled Provider: Location:[facility] Appointment Type:FM Nurse Visit Appointment Date:11/26/2021 09:40:00 AM Scheduled Provider: Location:[facility] Appointment Type:FM Nurse Visit Appointment Date:11/29/2021 10:00:00 AM Scheduled Provider: Location:[facility] Appointment Date:11/26/2021 09:40:00 AM Scheduled Provider: Location:[facility] Appointment Type:FM Nurse Visit Appointment Date:11/29/2021 10:00:00 AM Scheduled Provider: Location:[facility] Appointment Type:Surgery FT [facility] Evaluation + Plan note Future Appointments Appointment Date:11/26/2021 09:40:00 AM Scheduled Provider: Location:[facility] Appointment Type:FM Nurse Visit Appointment Date:11/29/2021 10:00:00 AM Scheduled Provider: Location:[facility] Appointment Type:Surgery FT Future Scheduled Tests Radiology* NM Myocardial Spect Rest/Stress 1 Day 11/19/21 * Echo Tran[facility]horacic [facility] Appointment Date:12/13/2021 09:30:00 AM Scheduled Provider:Audelia VEGA CNP [facility] Type:Cardiology Follow Up (FT) Appointment Date:12/13/2021 02:00:00 PM Scheduled Provider: Location:[facility] Appointment Type:FM Nurse Visit Appointment Date:01/03/2022 10:00:00 AM Scheduled Provider: Location:[facility] Appointment Date:12/27/2021 02:00:00 PM Scheduled Provider: Location:[facility] Appointment Type:FM Nurse Visit Appointment Date:01/03/2022 10:00:00 AM Scheduled Provider: Location:[facility] Appointment Type:Surgery FT Appointment Date:01/18/2022 11:00:00 AM Scheduled Provider:Audelia VEGA CNP [facility] Type:Cardiology Follow Up (FT) Future Scheduled Tests Radiology* CV [facility] Appointment Date:01/03/2022 10:00:00 AM Scheduled Provider: Location:[facility] Appointment Type:Surgery FT Appointment Date:01/17/2022 11:40:00 AM Scheduled Provider: Location:[facility] Appointment Type:FM Nurse Visit Appointment Date:01/18/2022 11:00:00 AM Scheduled Provider:Audelia VEGA CNP [facility] Type:Cardiology Follow Up (FT) Future Scheduled Tests Radiology* CV Cardiovascular 12/13/21 [facility] Evaluation + Plan note Future Appointments Appointment Date:01/31/2022 11:40:00 AM Scheduled Provider: Location:[facility] Appointment Type:FM Nurse Visit Appointment Date:07/21/2022 01:15:00 PM Scheduled Provider:Marlon Finney MD [facility] Type:Cardiology Follow Up (FT) Future Scheduled Tests Laboratory* BUN 01/04/22 * Creatinine 01/04/22 * Electrolyte Panel 01/04/22 * CBC w/ Auto Diff 01/04/22 Radiology* CV [facility] Appointment Date:02/28/2022 10:20:00 AM Scheduled Provider: Location:[facility] Appointment Type: Nurse Visit Appointment Date:07/21/2022 01:15:00 PM Scheduled Provider:Marlon Finney MD [facility] Type:Cardiology Follow Up (FT) Future Scheduled Tests Laboratory* BUN 01/04/22 * Creatinine 01/04/22 * Electrolyte Panel 01/04/22 * CBC w/ Auto Diff 01/04/22 Radiology* CV Cardiovascular 12/13/21 [facility] Evaluation + Plan note Future Appointments Appointment Date:03/15/2022 10:00:00 AM Scheduled Provider: Location:[facility] Appointment Type: Nurse Visit Appointment Date:07/21/2022 01:15:00 PM Scheduled Provider:Marlon Finney MD [facility] Type:Cardiology Follow Up (FT) Future Scheduled Tests Laboratory* BUN 01/04/22 * Creatinine 01/04/22 * Electrolyte Panel 01/04/22 * CBC w/ Auto Diff 01/04/22 Radiology* CV Cardiovascular 12/13/21 [facility] Evaluation + Plan note Future Appointments Appointment Date:03/28/2022 10:20:00 AM Scheduled Provider: Location:[facility] Appointment Type: Nurse Visit Appointment Date:07/21/2022 01:15:00 PM Scheduled Provider:Marlon Finney MD [facility] Type:Cardiology Follow Up (FT) Future Scheduled Tests Laboratory* BUN 01/04/22 * Creatinine 01/04/22 * Electrolyte Panel 01/04/22 * CBC w/ Auto Diff 01/04/22 Radiology* CV Cardiovascular 12/13/21 [facility] Evaluation + Plan note Future Appointments Appointment Date:04/11/2022 10:20:00 AM Scheduled Provider: Location:[facility] Appointment Type: Nurse Visit Appointment Date:07/21/2022 01:15:00 PM Scheduled Provider:Marlon Finney MD [facility] Type:Cardiology Follow Up (FT) Future Scheduled Tests Laboratory* BUN 01/04/22 * Creatinine 01/04/22 * Electrolyte Panel 01/04/22 * CBC w/ Auto Diff 01/04/22 Radiology* CV Cardiovascular 12/13/21 [facility] Evaluation + Plan note Future Appointments Appointment Date:04/25/2022 10:20:00 AM Scheduled Provider: Location:[facility] Appointment Type: Nurse Visit Appointment Date:07/21/2022 01:15:00 PM Scheduled Provider:Marlon Finney MD [facility] Type:Cardiology Follow Up (FT) Future Scheduled Tests Laboratory* BUN 01/04/22 * Creatinine 01/04/22 * Electrolyte Panel 01/04/22 * CBC w/ Auto Diff 01/04/22 Radiology* CV Cardiovascular 12/13/21 [facility] iSOCOaluation + Plan note Future Appointments Appointment Date:05/10/2022 08:00:00 AM Scheduled Provider: Location:[facility] [place] Appointment Type: Medicare Wellness Subsequent Appointment Date:05/23/2022 10:00:00 AM Scheduled Provider: Location:[facility] Appointment Type: Nurse Visit Appointment Date:07/21/2022 01:15:00 PM Scheduled Provider:Marlon Finney MD [facility] Type:Cardiology Follow Up (FT) Future Scheduled Tests Laboratory* BUN 01/04/22 * Creatinine 01/04/22 * Electrolyte Panel 01/04/22 * CBC w/ Auto Diff 01/04/22 Radiology* CV Cardiovascular 12/13/21 [facility] evaluation + Plan note Future Appointments Appointment Date:05/23/2022 10:00:00 AM Scheduled Provider: Location:[facility] Appointment Type: Nurse Visit Appointment Date:07/21/2022 01:15:00 PM Scheduled Provider:Marlon Finney MD [facility] Type:Cardiology Follow Up (FT) Appointment Date:05/10/2023 08:00:00 AM Scheduled Provider: Location:[facility] Appointment Type: Medicare Wellness Subsequent Future Scheduled Tests Laboratory* BUN 01/04/22 * Creatinine 01/04/22 * Electrolyte Panel 01/04/22 * CBC w/ Auto Diff 01/04/22 Radiology* CV Cardiovascular 12/13/21 [facility] Evaluation + Plan note Future Appointments Appointment Date:06/06/2022 10:40:00 AM Scheduled Provider: Location:[facility] Appointment Type: Nurse Visit Appointment Date:07/21/2022 01:15:00 PM Scheduled Provider:Marlon Finney MD [facility] Type:Cardiology Follow Up (FT) Appointment Date:05/10/2023 08:00:00 AM Scheduled Provider: Location:[facility] Appointment Type: Medicare Wellness Subsequent Future Scheduled Tests Laboratory* BUN 01/04/22 * Creatinine 01/04/22 * Electrolyte Panel 01/04/22 * CBC w/ Auto Diff 01/04/22 Radiology* CV Cardiovascular 12/13/21 [facility] Evaluation + Plan note Future Appointments Appointment Date:06/27/2022 02:20:00 PM Scheduled Provider:Nayan Cherry MD Location:[facility] Appointment Type: Appointment Date:07/05/2022 10:40:00 AM Scheduled Provider: Location:[facility] Appointment Type: Nurse Visit Appointment Date:05/10/2023 08:00:00 AM Scheduled Provider: Location:[facility] Appointment Type: Medicare Wellness Subsequent Future Scheduled Tests Laboratory* BUN 01/04/22 * Creatinine 01/04/22 * Electrolyte Panel 01/04/22 * CBC w/ Auto Diff 01/04/22 Radiology* CV Cardiovascular [facility] [facility] Evaluation + Plan note Future Appointments Appointment Date:07/05/2022 10:40:00 AM Scheduled Provider: Location:[facility] Appointment Type: Nurse Visit Appointment Date:07/07/2022 01:00:00 PM Scheduled Provider: Location:[facility] Appointment Type:Surgery FT Appointment Date:05/10/2023 08:00:00 AM Scheduled Provider: Location:[facility] Appointment Type: Medicare Wellness Subsequent Future Scheduled Tests Laboratory* BUN 01/04/22 * Creatinine 01/04/22 * Electrolyte Panel 01/04/22 * CBC w/ Auto Diff 01/04/22 Radiology* CV Cardiovascular 12/13/21 [facility] General Surgery [place] Evaluation + Plan note Future Appointments Appointment Date:07/18/2022 10:40:00 AM Scheduled Provider: Location:[facility] Appointment Type: Nurse Visit Appointment Date:05/10/2023 08:00:00 AM Scheduled Provider: Location:[facility] Appointment Type:FM Medicare Wellness Subsequent Future Scheduled Tests Laboratory* BUN 01/04/22 * Creatinine 01/04/22 * Electrolyte Panel 01/04/22 * CBC w/ Auto Diff 01/04/22 Radiology* CV Cardiovascular 12/13/21 [facility] Evaluation + Plan note Future Appointments Appointment Date:08/01/2022 10:20:00 AM Scheduled Provider: Location:[facility] Appointment Type: Nurse Visit Appointment Date:08/02/2022 03:30:00 PM Scheduled Provider: Location:[facility] Appointment Type:MA Screen (FT) Appointment Date:05/10/2023 08:00:00 AM Scheduled Provider: Location:[facility] Appointment Type:FM Medicare Wellness Subsequent Future Scheduled Tests Laboratory* BUN 01/04/22 * Creatinine 01/04/22 * Electrolyte Panel 01/04/22 * CBC w/ Auto Diff 01/04/22 Radiology* CV Cardiovascular 12/13/21 * MA Mamm Screen w/CAD if perf and 3D Martell 08/02/22 [facility] evaluation + Plan note Future Appointments Appointment Date:08/05/2022 10:15:00 AM Scheduled Provider: Location:[facility] Appointment Type:MA Screen (FT) Appointment Date:08/15/2022 10:20:00 AM Scheduled Provider: Location:[facility] Appointment Type: Nurse Visit Appointment Date:05/10/2023 08:00:00 AM Scheduled Provider: Location:[facility] Appointment Type: Medicare Wellness Subsequent Future Scheduled Tests Laboratory* BUN 01/04/22 * Creatinine 01/04/22 * Electrolyte Panel 01/04/22 * CBC w/ Auto Diff 01/04/22 Radiology* CV Cardiovascular 12/13/21 * MA Mamm Screen w/CAD if perf and 3D Martell 08/05/22 [facility] [employer] + Plan note Future Appointments Appointment Date:08/15/2022 10:20:00 AM Scheduled Provider: Location:[facility] Appointment Type: Nurse Visit Appointment Date:05/10/2023 08:00:00 AM Scheduled Provider: Location:[facility] Appointment Type: Medicare Wellness Subsequent Future Scheduled Tests Laboratory* BUN 01/04/22 * Creatinine 01/04/22 * Electrolyte Panel 01/04/22 * CBC w/ Auto Diff 01/04/22 Radiology[facility] Appointment Date:08/29/2022 10:20:00 AM Scheduled Provider: Location:[facility] Appointment Type: Nurse Visit Appointment Date:05/10/2023 08:00:00 AM Scheduled Provider: Location:[facility] Appointment Type: Medicare Wellness Subsequent Future Scheduled Tests Laboratory* BUN 01/04/22 * Creatinine 01/04/22 * Electrolyte Panel 01/04/22 * CBC w/ Auto Diff 01/04/22 Radiology* CV Cardiovascular 12/13/21 [facility] evaluation + Plan note Future Appointments Appointment Date:09/12/2022 10:20:00 AM Scheduled Provider: Location:[facility] Appointment Type: Nurse Visit Appointment Date:05/10/2023 08:00:00 AM Scheduled Provider: Location:[facility] Appointment Type: Medicare Wellness Subsequent Future Scheduled Tests Laboratory* BUN 01/04/22 * Creatinine 01/04/22 * Electrolyte Panel 01/04/22 * CBC w/ Auto Diff 01/04/22 Radiology* [facility] [employer] + Plan note Future Appointments Appointment Date:09/26/2022 10:40:00 AM Scheduled Provider: Location:[facility] Appointment Type: Nurse Visit Appointment Date:05/10/2023 08:00:00 AM Scheduled Provider: Location:[facility] Appointment Type: Medicare Wellness Subsequent Future Scheduled Tests Laboratory* BUN 01/04/22 * Creatinine 01/04/22 * Electrolyte Panel 01/04/22 * CBC w/ Auto Diff 01/04/22 Radiology* CV Cardiovascular 12/13/21 [facility] [employer] evaluation + Plan note Future Appointments Appointment Date:10/10/2022 10:40:00 AM Scheduled Provider: Location:[facility] Appointment Type: Nurse Visit Appointment Date:05/10/2023 08:00:00 AM Scheduled Provider: Location:[facility] Appointment Type: Medicare Wellness Subsequent Future Scheduled Tests Laboratory* BUN 01/04/22 * Creatinine 01/04/22 * Electrolyte Panel 01/04/22 * CBC w/ Auto Diff 01/04/22 Radiology* CV Cardiovascular 12/13/21 [facility] [employer] + Plan note Future Appointments Appointment Date:10/24/2022 10:40:00 AM Scheduled Provider: Location:[facility] Appointment Type: Nurse Visit Appointment Date:05/10/2023 08:00:00 AM Scheduled Provider: Location:[facility] Appointment Type: Medicare Wellness Subsequent Future Scheduled Tests Laboratory* BUN 01/04/22 * Creatinine 01/04/22 * Electrolyte Panel 01/04/22 * CBC w/ Auto Diff 01/04/22 Radiology* CV Cardiovascular 12/13/21 [facility] [employer] evaluation + Plan note Future Appointments Appointment Date:11/07/2022 10:40:00 AM Scheduled Provider: Location:[facility] Appointment Type: Nurse Visit Appointment Date:05/10/2023 08:00:00 AM Scheduled Provider: Location:[facility] Appointment Type: Medicare Wellness Subsequent Future Scheduled Tests Laboratory* BUN 01/04/22 * Creatinine 01/04/22 * Electrolyte Panel 01/04/22 * CBC w/ Auto Diff 01/04/22 Radiology* CV Cardiovascular 12/13/21 [facility] Evaluation + Plan note Future Appointments Appointment Date:11/21/2022 10:40:00 AM Scheduled Provider: Location:[facility] Appointment Type: Nurse Visit Appointment Date:05/10/2023 08:00:00 AM Scheduled Provider: Location:[facility] Appointment Type:FM Medicare Wellness Subsequent Future Scheduled Tests Laboratory* BUN 01/04/22 * Creatinine 01/04/22 * Electrolyte Panel 01/04/22 * CBC w/ Auto Diff 01/04/22 Radiology* CV Cardiovascular 12/13/21 [facility] [employer] + Plan note Future Appointments Appointment Date:12/20/2022 10:40:00 AM Scheduled Provider: Location:[facility] Appointment Type: Nurse Visit Appointment Date:05/10/2023 08:00:00 AM Scheduled Provider: Location:[facility] Appointment Type: Medicare Wellness Subsequent Future Scheduled Tests Laboratory* BUN 01/04/22 * Creatinine 01/04/22 * Electrolyte Panel 01/04/22 * CBC w/ Auto Diff 01/04/22 Radiology* CV Cardiovascular 12/13/21 [facility] Evaluation + Plan note Future Appointments Appointment Date:01/16/2023 10:40:00 AM Scheduled Provider: Location:[facility] Appointment Type: Nurse Visit Appointment Date:05/10/2023 08:00:00 AM Scheduled Provider: Location:[facility] Appointment Type: Medicare Wellness Subsequent Future Scheduled Tests Laboratory* BUN 01/04/22 * Creatinine 01/04/22 * Electrolyte Panel 01/04/22 * CBC w/ Auto Diff 01/04/22 [facility] [place] Evaluation + Plan note Future Appointments Appointment Date:01/16/2023 10:40:00 AM Scheduled Provider: Location:[facility] [place] Appointment Type:FM Nurse Visit Appointment Date:05/10/2023 08:00:00 AM Scheduled Provider: Location:[facility] [place] Appointment Type:FM [place] Wellness [facility] Appointment Date:01/30/2023 10:40:00 AM Scheduled Provider: Location:[facility] [place] Appointment Type:FM Nurse Visit Appointment Date:05/10/2023 08:00:00 AM Scheduled Provider: Location:[facility] Appointment Type:FM Medicare Wellness Subsequent [facility] [place] [facility] Medicine [place] Evaluation + Plan note Future Appointments Appointment Date:03/14/2023 10:40:00 AM Scheduled Provider: Location:[facility] Appointment Type:FM Nurse Visit Appointment Date:05/10/2023 08:00:00 AM Scheduled Provider: Location:[facility] [place] Appointment Type:FM Medicare Wellness Subsequent [facility] [place] [facility] Medicine [place] Evaluation + Plan note Future Appointments Appointment Date:03/27/2023 10:40:00 AM Scheduled Provider: Location:[facility] Appointment Type:FM Nurse Visit Appointment Date:05/10/2023 08:00:00 AM Scheduled Provider: Location:[facility] [place] Appointment Type:FM Medicare Wellness Subsequent [facility] [place] [facility] Medicine [place] Evaluation + Plan note Future Appointments Appointment Date:04/10/2023 10:40:00 AM Scheduled Provider: Location:[facility] Appointment Type:FM Nurse Visit Appointment Date:05/10/2023 08:00:00 AM Scheduled Provider: Location:[facility] [place] Appointment Type:FM Medicare Wellness Subsequent [facility] [place] [facility] Medicine [place] Evaluation + Plan note Future Appointments Appointment Date:05/08/2023 10:40:00 AM Scheduled Provider: Location:[facility] [place] Appointment Type:FM Nurse Visit Appointment Date:05/10/2023 08:00:00 AM Scheduled Provider: Location:[facility] [place] Appointment Type:FM Medicare Wellness Subsequent [facility] [place] [facility] Medicine [place] Evaluation + Plan note Future Appointments Appointment Date:05/10/2023 08:00:00 AM Scheduled Provider: Location:[facility] Appointment Type:FM Medicare Wellness Subsequent Appointment Date:05/15/2023 10:40:00 AM Scheduled Provider: Location:[facility] Appointment Type:FM Nurse Visit [facility] Evaluation + Plan note Future Appointments Appointment Date:05/15/2023 10:40:00 AM Scheduled Provider: Location:[facility] [place] Appointment Type:FM Nurse Visit Appointment Date:05/13/2024 09:30:00 AM Scheduled Provider: Location:[facility] Appointment Type:FM Medicare Wellness Subsequent [facility] [place] Evaluation + Plan note Future Appointments Appointment Date:05/22/2023 10:40:00 AM Scheduled Provider: Location:[facility] Appointment Type:FM Nurse Visit Appointment Date:05/29/2023 10:40:00 AM Scheduled Provider: Location:[facility] Appointment Type:FM Nurse Visit Appointment Date:06/05/2023 10:40:00 AM Scheduled Provider: Location:[facility] Appointment Type:FM Nurse Visit Appointment Date:06/12/2023 10:40:00 AM Scheduled Provider: Location:[facility] [place] Appointment Type:FM Nurse Visit Appointment Date:05/13/2024 09:30:00 AM Scheduled Provider: Location:[facility] [place] Appointment Type:FM Medicare Wellness Subsequent [facility] [place] [facility] Medicine [place] evaluation + Plan note Future Appointments Appointment Date:05/29/2023 10:40:00 AM Scheduled Provider: Location:[facility] Appointment Type:FM Nurse Visit Appointment Date:06/05/2023 10:40:00 AM Scheduled Provider: Location:[facility] Appointment Type:FM Nurse Visit Appointment Date:06/12/2023 10:40:00 AM Scheduled Provider: Location:[facility] [place] Appointment Type:FM Nurse Visit Appointment Date:05/13/2024 09:30:00 AM Scheduled Provider: Location:[facility] [place] Appointment Type:FM Medicare Wellness Subsequent [facility] [place] Evaluation + Plan note Future Appointments Appointment Date:06/05/2023 10:40:00 AM Scheduled Provider: Location:[facility] Appointment Type:FM Nurse Visit Appointment Date:06/12/2023 10:40:00 AM Scheduled Provider: Location:[facility] [place] Appointment Type:FM Nurse Visit Appointment Date:05/13/2024 09:30:00 AM Scheduled Provider: Location:[facility] [place] Appointment Type:FM Medicare Wellness Subsequent [facility] [place] [facility] Medicine [place] evaluation + Plan note Future Appointments Appointment Date:06/12/2023 10:40:00 AM Scheduled Provider: Location:[facility] Appointment Type:FM Nurse Visit Appointment Date:05/13/2024 09:30:00 AM Scheduled Provider: Location:[facility] Appointment Type:FM Medicare Wellness Subsequent [facility] [place] [facility] Medicine [facility] Evaluation + Plan note Future Appointments Appointment Date:06/26/2023 10:40:00 AM Scheduled Provider: Location:[facility] Appointment Type:FM Nurse Visit Appointment Date:05/13/2024 09:30:00 AM Scheduled Provider: Location:[facility] [place] Appointment Type:FM Medicare Wellness Subsequent [facility] [place] [facility] Medicine [place] Evaluation + Plan note Future Appointments Appointment Date:07/11/2023 10:40:00 AM Scheduled Provider: Location:[facility] [place] Appointment Type:FM Nurse Visit Appointment Date:05/13/2024 09:30:00 AM Scheduled Provider: Location:[facility] Appointment Type:FM Medicare Wellness Subsequent [facility] [place] [facility] Medicine [place] evaluation + Plan note Future Appointments Appointment Date:07/24/2023 10:40:00 AM Scheduled Provider: Location:[facility] Appointment Type:FM Nurse Visit Appointment Date:05/13/2024 09:30:00 AM Scheduled Provider: Location:[facility] Appointment Type:FM Medicare Wellness Subsequent [facility] [place] Evaluation + Plan note Future Appointments Appointment Date:08/07/2023 10:40:00 AM Scheduled Provider: Location:[facility] Appointment Type:FM Nurse Visit Appointment Date:05/13/2024 09:30:00 AM Scheduled Provider: Location:[facility] Appointment Type:FM Medicare Wellness Subsequent [facility] Evaluation + Plan note Future Appointments Appointment Date:08/08/2023 09:40:00 AM Scheduled Provider: Location:[facility] Appointment Type:FM Nurse Visit Appointment Date:08/10/2023 11:00:00 AM Scheduled Provider: Location:[facility] Appointment Type:CV EKG (FT) Appointment Date:08/14/2023 10:40:00 AM Scheduled Provider:Guerita Knapp PA-C Location:[facility] Appointment Type:FM Open Appointment Date:08/21/2023 09:40:00 AM Scheduled Provider: Location:[facility] Appointment Type:FM Nurse Visit Appointment Date:05/13/2024 09:30:00 AM Scheduled Provider: Location:[facility] Appointment Type:FM Medicare Wellness Subsequent [facility] Evaluation + Plan note Future Appointments Appointment Date:08/10/2023 11:00:00 AM Scheduled Provider: Location:[facility] Appointment Type:CV EKG (FT) Appointment Date:08/14/2023 10:40:00 AM Scheduled Provider:Guerita Knapp PA-C Location:[facility] Appointment Type:FM Open Appointment Date:08/21/2023 09:40:00 AM Scheduled Provider: Location:[facility] Appointment Type:FM Nurse Visit Appointment Date:05/13/2024 09:30:00 AM Scheduled Provider: Location:[facility] Appointment Type:FM Medicare Wellness Subsequent [facility] [place] [facility] Medicine [place] Evaluation + Plan note Future Appointments Appointment Date:08/15/2023 09:30:00 AM Scheduled Provider: Location[facility] Appointment Type:CV EKG () Appointment Date:08/21/2023 09:40:00 AM Scheduled Provider: Location:[facility] Appointment Type:FM Nurse Visit Appointment Date:05/13/2024 09:30:00 AM Scheduled Provider: Location:[facility] Appointment Type:FM Medicare Wellness Subsequent [facility] [place] [facility] Medicine [place] evaluation + Plan note Future Appointments Appointment Date:09/04/2023 10:40:00 AM Scheduled Provider: Location:[facility] Appointment Type:FM Nurse Visit Appointment Date:05/13/2024 09:30:00 AM Scheduled Provider: Location:[facility] Appointment Type:FM Medicare Wellness Subsequent [facility] [place] [facility] Medicine [place] Evaluation + Plan note Future Appointments Appointment Date:10/02/2023 10:40:00 AM Scheduled Provider: Location:[facility] Appointment Type:FM Nurse Visit Appointment Date:05/13/2024 09:30:00 AM Scheduled Provider: Location:[facility] Appointment Type:FM Medicare Wellness [facility] Medicine [place] Evaluation + Plan note Future Appointments Appointment Date:10/16/2023 10:40:00 AM Scheduled Provider: Location:[facility] Appointment Type:FM Nurse Visit Appointment Date:05/13/2024 09:30:00 AM Scheduled Provider: Location:[facility] Appointment Type: Medicare Wellness Subsequent [facility] [place] [facility] Medicine [place] evaluation + Plan note Future Appointments Appointment Date:10/18/2023 12:30:00 PM Scheduled Provider: Location:[facility] Appointment Type:MA Screen () Appointment Date:10/30/2023 10:40:00 AM Scheduled Provider: Location:[facility] Appointment Type:FM Nurse Visit Appointment Date:05/13/2024 09:30:00 AM Scheduled Provider: Location:[facility] [place] Appointment Type:FM Medicare Wellness Subsequent Future Scheduled Tests Radiology* MA Mamm Screen w/CAD if perf and 3D Martell 10/18/23 [facility] [place] [facility] Medicine [place] Evaluation + Plan note Future Appointments Appointment Date:10/30/2023 10:40:00 AM Scheduled Provider: Location:[facility] Appointment Type:FM Nurse Visit Appointment Date:05/13/2024 09:30:00 AM Scheduled Provider: Location:[facility] [place] Appointment Type:FM [place] [facility] App[facility]ments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
== END 2024-01-05 06:35 | disposition home or self-care (01) ==
LOC: MRI 06:34
PROVIDERS: Visit Provider Radiology Diagnostic Radiology
DX: R22.41 Localized swelling, mass and lump, right lower limb (principal)
CPT/HCPCS: 73718

== ENCOUNTER 2024-01-10 10:22 | Outpatient (OUT) | payer MEDICARE, OTHER, SELFPAY ==
[2024-01-10 09:31] VITALS: BP 142/82; PULSE 82; O2SAT 98; BMI 37.5
--- NOTE | 2024-01-10 09:31 | VEINCLINIC_ITS ---
Vital Signs 01/10/24 09:31 Height 5 ft 4 in Weight 99.159 kg BMI 37.5 BP 142/82 H BP Location Left Brachial BP Position Sitting BP Cuff Size Adult BP Source Manual Cuff Respiration 16 Pulse 82 Pulse Oximetry (%) 98 Comment The patient's blood pressure is elevated. Varicose Veins Patient in this day for EVLT of right leg GSV. Kwasi Mabry MD personally performed the services described in this documentation, as scribed by Noemí Castillo RVT, RDMS in my presence and it is both accurate and complete. Noemí Mabry RVT, RDMS, am scribing for, and in the presence of, Dr. Kwasi Ruiz and in the presence of the patient. medial thigh: bilateral, knee: bilateral, calf: bilateral, ankle: bilateral and wahl: bilateral cramping, sharp and intermittent 5 20 years Worsened in recent months: Yes standing and sitting analgesics (ibuprofen and tylenol), bed rest, elevating extremities, compression stockings and exercise Reports leg edema and other (bulging veins, discolored veins, and dilated veins) History of lower extremity trauma: No Superficial thrombophlebitis: No Family history of varicose veins: yes Has patient had previous lower extremity venous surgery: No Patient has previously received the following treatment(s) for lower extremity varicose veins: Reports none Does patient have a history of : yes Does patient intend to have future pregnancies: no Has patient had lower extremity venous scan with relux testing: Yes Support hose used: Yes Problems walking or doing physical activity: Yes How does it affect you: Affects patients sleep and is not sleeping well Do you walk much: Yes Do you stand much: Yes Medication compliance: good Review of Systems ROS Narrative Kwasi Mabry MD personally performed the services described in this documentation, as scribed by Noemí Castillo RVT, RDMS in my presence and it is both accurate and complete. Noemí Mabry RVT, RDMS, am scribing for, and in the presence of, Dr. Kwasi Ruiz and in the presence of the patient. Status of ROS 10 or more systems reviewed and unremark able except as noted in history and below Cardiovascular Reports: edema, swelling of feet/ankles and leg pain with exertion Musculoskeletal Reports: extremity pain, extremity swelling, limited range of motion, joint swelling, muscle cramps and muscle weakness Integumentary/Breast Reports: skin pain, skin tenderness, skin swelling and changes in skin color Neurological Reports: numbness in extremities and weakness in extremities [facility] Medical History (Updated 01/10/24 @ 14:26 by Kwasi Ruiz MD) Pain due to varicose veins of both lower extremities ?I83.813 - Varicose veins of bilateral lower extremities with pain (ICD-10) Obesity ?E66.9 - Obesity, unspecified (ICD-10) Surgical History (Updated 01/10/24 @ 09:50 by Noemí Castillo) History of bunionectomy ?Z98.890 - Other specified postprocedural states (ICD-10) History of breast biopsy ?Z98.890 - Other specified postprocedural states (ICD-10) History of knee replacement procedure of right knee ?Z96.651 - Presence of right artificial knee joint (ICD-10) Family History (Updated 01/10/24 @ 09:52 by Noemí Castillo) Father Family history of CHF (congestive heart failure) Family history of diabetes mellitus Mother Varicose veins of bilateral lower extremities with pain Social History (Updated 01/10/24 @ 09:52 by Noemí Castillo) Within the past year, how often did you have a drink containing alcohol: 2-4 times a month Smoking status: Never smoker Non-prescribed substance use: denies use Meds Home Medications and Allergies Home Medications ?Medication ?Instructions ?Recorded ?Confirmed ?Type albuterol sulfate 2.5 mg/3 mL 1.25 mg inhalation TID 01/10/24 01/10/24 History (0.083 %) solution for nebulization cetirizine 10 mg tablet (24Hour 5 mg PO DAILY PRN allergy symptoms 01/10/24 01/10/24 History Allergy) clindamycin HCl 300 mg capsule 300 mg PO BID 01/10/24 01/10/24 History (Cleocin HCl) cyanocobalamin (vitamin B-12) 100 100 mcg PO DAILY 01/10/24 01/10/24 History mcg tablet (Vitamin B-12) escitalopram oxalate 20 mg tablet 20 mg PO DAILY 01/10/24 01/10/24 History (Lexapro) hydroxyzine pamoate 25 mg capsule 25 mg PO BID 01/10/24 01/10/24 History (Vistaril) montelukast 10 mg tablet 10 mg PO DAILY 01/10/24 01/10/24 History Allergies Allergy/AdvReac Type Severity Reaction Status Date / Time amoxicillin Allergy Mild Rash Unverified 01/10/24 10:00 codeine Allergy Mild Nausea Unverified 01/10/24 10:00 naproxen Allergy Unknown Unverified 01/10/24 10:00 Exam Narrative Exam Narrative: I, Kwasi Ruiz MD personally performed the services described in this documentation, as scribed by Noemí Castillo RVT, RDMS in my presence and it is both accurate and complete. I, Noemí Castillo RVT, RDMS, am scribing for, and in the presence of, Dr. Kwasi Ruiz and in the presence of the patient. Constitutional Documenting provider has reviewed patient's vital signs: yes Common normals: oriented x3 Lymph Lymphatic: no lymphedema noted Cardio Common normals: regular rate Rate: regular rate Peripheral pulses: posterior tibial pulses present and dorsalis pedis pulses present Extremity Common normals: normal capillary refill General: calf tenderness and edema Right lower extremity: upper leg and lower leg Left lower extremity: upper leg and lower leg Neuro Common normals: oriented x3 Assessment and Plan Assessment and Plan (1) Phlebitis and thrombophlebitis of superficial vessels of right lower extremity: Plan Plan of care: Risks and benefits of the procedure were discussed at length and informed written consent was obtained.? Time-out completed for verification of correct patient, procedure and site.? Staff present during time-out: ? Kwasi Ruiz MD, Noemí Castillo RDMS,KHANH and Valeria Hutton RDMS Time Out Time__1107____ Patient prepped and procedure performed in usual sterile fashion. Risk of injury related to use of Diode laser and/or laser devices? __ME___ ? Serial number of laser used :? [id number] Control panel self test performed, electrical cords in good condition, floor is dry, basin of water available, fire extinguisher in close proximity_EM__ Polycarbonate goggles available and Laser warning signs outside of doors___ME___ Eye protection provided to patient and staff in room_ME___ Use of laser retardant drapes and dull blackened instruments as directed__ME___ Use of nonflammable prep solutions and use of saline soaked sponges to protect tissues as indicated _ME___ Length ___63 cm Laser operated by ___Dr. Ruiz Physician verbal confirmation laser locked in place__ME__ Laser start time (date and time) ___01/10/2024 at 1122 Laser stop time(date and time) ____01/10/2024 at _1131 [place] _8.0___ Average laser use __3196 Joules Average laser use__400 seconds Pulse continuous ___ME_? Pulse intermittent ___ Amount of Tumescent used ___200___ Evaluated patient for signs and symptoms of electrical injury __ME___ ? Skin clear at insertion site __ME__ Patient tolerated procedure well.? Right leg Coban dressing applied to access site.? Applied Right thigh high leg compression stocking. Will return on // for Right leg limited venous ultrasound and exam. IKwasi MD personally performed the services described in this documentation, as scribed by Noemí Castillo RVT, RDMS in my presence and it is both accurate and complete. INoemí RVT, RDMS, am scribing for, and in the presence of, Dr. Kwasi Ruiz and in the presence of the patient. Procedures Procedure Note Date of procedure: 01/10/24 Pre-op diagnosis: I83.813 Procedure: EVLT of Right leg GSV Surgeon: Kwasi Ruiz
--- NOTE | 2024-01-10 10:06 | W.VEIN ---
Discharge Plan Discharge Disposition: Home, Self-Care Outpatient Diagnostics: VC EXT Venous RT LMTD (Routine) Timeframe: 2 Weeks Facility: [facility] - Location: [facility] Ordered By: Kwasi Ruiz Follow Up Appointments: 01/17/2024 Patient Instructions: Endovenous Ablation (DC) Print Language: [place]ican Discharge Date/Time: 01/10/24 11:55
--- NOTE | 2024-01-10 10:27 | VEIN_ITS ---
[address] [address] Patient Name: JOSIAH ALONZO MRN: [id number] date: 1955 Sex: F Assigned Patient Location: Current Patient Location: Accession/Order Number: [id number] Exam Date: 01/10/2024 10:27 Report Date: 01/10/2024 13:30 At the request of: DIAZ NORRIS Procedure: VC Endovenous Ablation 1VeinRT EXAMINATION: VC Endovenous Ablation 1VeinRT HISTORY: Pain due to varicose veins of bilateral legs I83.813 The risks and benefits of the procedure had been previously discussed, and were rediscussed at length. Informed written consent was obtained. Valeria Castaneda RDMS and Noemí Castillo RDMS, RVMadiha assisted. Time out procedure was performed. The right lower extremity was prepared and draped in the usual sterile fashion to allow knee flexion in the sterile field. Duplex ultrasound probe was draped in a sterile cover, sterile transmission gel was used. Venous mapping was performed with the areas of dilation and large tributaries marked. The total length was 63 cm from the entry 3 cm above the ankle to 3 cm below the Saphenofemoral junction. The diameter of the right great saphenous vein ranged from 8.4 mm. A 30 gauge needle and 1% buffered lidocaine was used to anesthetize the entry site. A 4 mm incision was made with a scalpel and the saphenous vein was entered percutaneously under direct ultrasound guidance with a micropuncture set, a single stick was successful in gaining access. A micro-guide wire was inserted and the needle removed. A micro-set including a dilator was inserted over the microwire and the needle and dilator were removed. A guide wire was inserted through the micro-set and guided through the saphenous vein to the saphenofemoral junction. The dilator was removed and an introducer sheath was inserted over the wire until the end of the sheath entered the saphenofemoral junction. The dilator and wire were removed and the 600 micron fiber was introduced and placed and positioned so that it extended beyond the sheath and was 3 cm distal to the saphenofemoral or saphenopopliteal junction. Final position of the fiber was determined by ultrasound guidance and duplex imaging. Tumescent anesthetic was delivered by ultrasound guidance. 200 cc of fluid was delivered along the entire course of the saphenous vein. The solution consisted of 1000 cc of normal saline with 40 mL of 1% lidocaine and 20 mL of sodium bicarbonate. A final positioning check was made. The energy source was turned on by means of the foot pedal and the fiber and sheath were withdrawn. The total number of Joules delivered was 3196. The laser was active for 400 seconds under continuous pulse, average laser use of 8 J. Laser start time: 11:22 AM Laser stop time: 11:31 AM Date: 01/10/2024. A duplex ultrasound revealed compressibility and flow at the saphenofemoral junction immediately after the procedure. Hemostasis at the access site was achieved. The skin incision of the saphenous vein was closed with a 4 x 4. A compression stocking was applied. Postop instructions were given. A follow up appointment was recommended and scheduled. The patient tolerated the procedure well. Electronically authenticated by: ABBY RODRIGUEZ Date: 01/10/2024 13:30
--- OUTSIDE RECORDS SUMMARY | 2024-01-10 10:34 | XMS_ITS ---
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 Pharmacy: [facility], 154.1, cm, 05/08/20 8:25:00 EDT, Height/Length Dosing Start Date: 03/10/21 Status: Ordered Start: 03-10-2021 take 0.5 mg by inhal ation once daily budesonide 0.5 mg/2 mL Inh Susp 0.5 mg = 2 mL, NEB, Daily, # 90 EA, Refills(s) 1, Pharmacy: [facility] 518, 154.1, cm, 05/08/20 8:25:00 [...] Daily, # 90 tab(s), Refills(s) 3, Pharmacy: [facility] [id number], 170, cm, 01/02/24 10:45:00 EDT, Height/Length Dosing, 106, kg, 01/02/24 10:45:00 EDT, Weight Dosing Start Date: 01/02/24 Status: Ordered clindamycin 300 mg oral capsule (20 sources) Lincosamide Antibacterial Start: 07-14-2022 clindamycin 300 mg oral cap 2 cap, Oral, Once, take 1 hr prior to procedure, # 2 cap(s), Refills(s) 1, Pharmacy: [facility] [id number], 165, cm, 07/07/22 9:42:00 EST, Height/Length Dosing, 98, kg, 07/07/22 9:42:00 EST, Weight Dosing Start Date: 07/14/22 Status: Ordered Start: 07-14-2022 take 1 capsule by [facility] every six hours clindamycin 300 mg oral cap 300 mg = 1 cap(s), Oral, q6hr, 1 hour before procedure, # 2 cap(s), Refills(s) 1, Pharmacy: [facility] [id number], 170, cm, 07/05/23 12:11:00 EST, Height/Length Dosing, [...] Daily, # 90 tab(s), Refills(s) 3, Pharmacy: [facility] [id number], 170, cm, 08/14/23 10:53:00 EST, Height/Length Dosing, 101.7, kg, 08/14/23 10:53:00 EST, Weight Dosing Start Date: 10/03/23 Status: Ordered Start: 03-28-2022 take 1 tablet by [facility] once daily escitalopram 20 mg Tab 20 mg = 1 tab(s), Oral, Daily, # 90 tab(s), Refills(s) 1, Pharmacy: [facility] [id number], 162, cm, 01/18/22 11:03:00 EDT, Height/Length Dosing, 97, kg, 01/18/22 11:03:00 EDT, Weight Dosing Start Date: 03/28/22 Status: Ordered Start: 12-31-2021 take 1 tablet by chacha th once daily escitalopram 20 mg Tab 20 mg = 1 tab(s), Oral, Daily, # 90 tab(s), Refills(s) 1, Pharmacy: [facility], 162, cm, 12/17/21 9:05:00 EDT, Height/Length Dosing, 96, kg, 12/17/21 9:05:00 EDT, Weight Dosing Start Date: 12/31/21 Status: Ordered Start: 09-27-2021 take 1 tablet by chacha once daily escitalopram 20 mg Tab 20 mg = 1 tab(s), Oral, Daily, # 90 tab(s), Refills(s) 1, Pharmacy: [facility] 518, 154.1, cm, 07/30/21 14:24:00 EST, Height/Length Dosing, 90.5, kg, 07/30/21 14:24:00 EST, Weight Dosing Start Date: 09/27/21 Status: Ordered famotidine 40 mg oral tablet (2 sources) Histamine-2 Receptor Antagonist Start: 04-13-2020 take 1 tablet by mouth once daily at bedtime famotidine 40 mg Tab 40 mg = 1 tab(s), Oral, Once a day (at bedtime), # 30 tab(s), Refills(s) 0, Pharmacy: [facility], 154.1, cm, 04/13/20 12:32:00 EDT, Height/Length Dosing Start Date: 04/13/20 Status: Ordered Fish Oils (20 sources) Start: 11-14-2018 take 2 capsules by mouth twice daily Fish Oil 500 mg oral capsule 1,000 mg = 2 cap(s), Oral, BID, Refills(s) 0, Prophylaxis Start Date: 11/14/18 Status: Ordered Start: 11-14-2018 take 2 capsules by m out twice daily Fish Oil 500 mg oral capsule 1,000 mg = 2 cap(s), Oral, BID, # 130 cap(s), Refills(s) 0 Start Date: 11/14/18 Status: Ordered Flonase 0.05 mg/inh [place] (13 sources) Start: 11-21-2018 take 2 spray(s) nasal route once daily Flonase 0.05 mg/inh [place] 2 spray(s), Nasal, Daily, 16 gram, Refill(s) 0, each nostril, [facility] Start Date: 11/21/18 Status: Ordered fluticasone propionate 0.05 mg/actuat metered dose nasal spray (20 sources) Corticosteroid Start: 11-21-2018 take 2 spray(s) nasal route once daily Flonase 0.05 mg/inh [place] 2 spray(s), Nasal, Daily, 16 gram, Refill(s) 0, each nostril, [facility] Start Date: 11/21/18 Status: Ordered gabapentin 300 mg oral capsule (20 sources) Anti-epileptic Agent Start: 03-14-2023 take 1 capsule by mouth three times daily gabapentin 300 mg Cap 300 mg = 1 cap(s), Oral, TID, # 90 cap(s), Refills(s) 3, Pharmacy: [facility] [id number], thierno Barth, 11/24/22 13:54:00 EDT, Height/Length Dosing, 97, kg, 11/24/22 13:54:00 EDT, Weight Dosing Start Date: 03/14/23 Status: Ordered Start: 02-10-2023 take 1 capsule by [facility] three times daily gabapentin 300 mg Cap 300 mg = 1 cap(s), Oral, TID, # 90 cap(s), Refills(s) 0, Pharmacy: [facility] [id number], thierno Barth, 11/24/22 13:54:00 EDT, Height/Length Dosing, 97, kg, 11/24/22 13:54:00 EDT, Weight Dosing Start Date: 02/10/23 Status: Ordered Start: 01-11-2023 take 1 capsule by [facility] three times daily gabapentin 100 mg Cap 100 mg = 1 cap(s), Oral, TID, # 90 cap(s), Refills(s) 0, Pharmacy: [facility] [id number], thierno Barth, 11/24/22 13:54:00 EDT, Height/Length Dosing, 97, kg, [...] itching, # 360 tab(s), Refills(s) 3, [facility]: [facility] [id number], 170, cm, 01/02/24 10:45:00 EDT, Height/Length Dosing, 106, kg, 01/02/24 10:45:00 EDT, Weight Dosing Start Date: 01/02/24 Status: Ordered Start: 03-28-2022 take 1 tablet by chacha th four times daily as needed hydrOXYzine hydrochloride 25 mg Tab 25 mg = 1 tab(s), Oral, QID, PRN as needed for itching, # 360 tab(s), Refills(s) 1, Pharmacy: [facility] [id number], 162, cm, 01/18/22 11:03:00 EDT, Height/Length Dosing, 97, kg, 01/18/22 11:03:00 EDT, Weight Dosing Start Date: 03/28/22 Status: Ordered Start: 09-27-2021 take 1 tablet by chacha th four times daily as needed hydrOXYzine hydrochloride 25 mg Tab 25 mg = 1 tab(s), Oral, QID, PRN as needed for itching, # 360 tab(s), Refills(s) 0, Pharmacy: [facility], 154.1, cm, 07/30/21 14:24:00 EST, Height/Length [...] qPM, # 90 tab(s), Refills(s) 3, Pharmacy: [facility] [id number], 170, cm, 01/02/24 10:45:00 EDT, Height/Length Dosing, 106, kg, 01/02/24 10:45:00 EDT, Weight Dosing Start Date: 01/02/24 Status: Ordered Start: 09-27-2021 take 1 tablet by chacha th once daily in the evening Singulair 10 mg Tab 10 mg = 1 tab(s), Oral, qPM, # 90 tab(s), Refills(s) 1, Pharmacy: [facility] 518, 154.1, cm, 07/30/21 14:24:00 EST, [...] Ordered nebulizer (4 sources) Start: 03-22-2021 nebulizer gustabo ferguson, See Instructions, 1 EA, 0, use as directed with inhaled medication as prescribed, Supply Start Date: 03/22/21 Status: Ordered nebulizer tubing and supplies (4 sources) Start: 03-22-2021 nebulizer fatimahi ng and supplies nebulizer tubing and supplies, See Instructions, 1 EA, 0, use as directed with inhaled med as prescribed, Supply Start Date: 03/22/21 Status: Ordered polyethylene glycol 3350 984320 mg / potassium chloride 1480 mg / sodium bicarbonate 5720 mg / sodium chloride 72724 mg powder for oral solution (1 source) Osmotic Laxative Start: 06-27-2022 take 1 dose by mouth once NuLYTELY Carver oral powder for reconstitution See Instructions, 1 EA, Refill(s) 0, Per physcisians instructions prior to colonoscopy, [facility] [id number], 165, cm, 06/27/22 14:23:00 EST, Height/Length Dosing, [...] days., # 18 tab(s), Refills(s) 0, Pharmacy: [facility] [id number], 170, cm, 07/05/23 12:11:00 EST, Height/Length Dosing, 98.6, kg, 07/05/23 12:11:00 EST, Weight Dosing Start Date: 07/05/23 Status: Ordered Start: 08-18-2022 predniSONE 20 mg Tab See Instructions, 3 po daily x 2 days then 2 po daily x 2 days then 1po daily x 2 days, # 18 tab(s), Refills(s) 0, Pharmacy: [facility], 165, cm, 07/07/22 9:42:00 EST, Height/Length Dosing, 98, kg, 07/07/22 9:42:00 EST, Weight Dosing Start Date: 08/18/22 Status: Ordered Start: 03-28-2022 End: 04-02-2022 take 2 tablets by mouth once daily predniSONE 20 mg Tab 40 mg = 2 tab(s), Oral, Daily, X 5 day(s), # 10 tab(s), Refills(s) 0, Pharmacy: [facility], 162, cm, 01/18/22 11:03:00 EDT, Height/Length Dosing, 97, kg, 01/18/22 11:03:00 EDT, Weight Dosing Start Date: 03/28/22 Stop Date: 04/02/22 Status: Ordered Start: 12-09-2021 predniSONE 20 mg Tab See Instructions, 3 po daily x 2 days then 2 po daily x 2 days then 1po daily x 2 days, # 18 tab(s), Refills(s) 0, Pharmacy: [facility], 163, cm, 12/09/21 14:21:00 EDT, Height/Length Dosing, 95, kg, 11/19/21 15:23:00 EDT, Weight Dosing Start Date: 12/09/21 Status: Ordered Start: 07-12-2021 predniSONE 20 mg Tab See Instructions, 3 po daily x 3 days then 2 po daily x 3 days then 1po daily x 3 days, # 18 tab(s), Refills(s) 0, Pharmacy: [facility] 518, 154.1, cm, 05/08/20 8:25:00 EDT, Height/Length Dosing Start Date: 07/12/21 Status: Ordered ProAir HFA 90 mcg/inh inhalation aerosol (20 sources) Start: 03-10-2021 take 2 puff(s) by inhalation four times daily for wheezing ProAir HFA 90 mcg/inh inhalation aerosol 2 puff(s), Inhalation, QID for wheezing, 1 EA, Refill(s) 2, [facility], 154.1, cm, 05/08/20 8:25:00 EDT, Height/Length Dosing Start Date: 03/10/21 Status: Ordered Triamcinolone (4 sources) Corticosteroid Start: 08-31-2020 triamcinolone Top 0.1% Crm 30 gram 1 pete, Topical, BID, 30 gram, Refill(s) 1, [facility], 154.1, cm, 05/08/20 8:25:00 EDT, Height/Length [...] Refills(s) 0 Start Date: 11/21/18 Status: Ordered Payers Date Payer Category Payer Medicare MEDICARE MEDICAR E PART B [id number] 2021-[place] [address] Medicare [id number] 2021 Unknown [id number] [id number].3 .001156.315 2021 Medicare [id number] 1.2.840.087867.1.13.239.2.7.3 .889815.315 2020 Unknown 2020 Unknown [id number] 2019 Unknown [id number] 2019 Unknown [facility] xxxxxxxxx 2019-Present xxxxxxxxx 1.2.840.888462.1.13.385.2.7.3 .480508.315 2019 Unknown [id number] 1956 Unknown [id number] 2.16.840.1.953755.3.579.2.902 1956 Unknown [id number] 2.16.840.1.157098.3.579.2.174 1956 Unknown [id number] 2.16.840.1.979485.3.579.2.174 1956 Unknown [id number] 2.16.840.1.486994.3.579.2.174 1956 Unknown [id number] 2.16.840.1.235924.3.579.2.174 1956 Unknown [id number] 2.16.840.1.861565.3.579.2.174 1956 Unknown [id number] 2.16.840.1.602001.3.579.2.174 1956 Unknown [id number] 2.16.840.1.450084.3.579.2.174 1956 Unknown [id number] 2.16.840.1.483802.3.579.2.174 1956 Unknown [id number] 2.16.840.1.839266.3.579.2.174 1956 Unknown [id number] 2.16.840.1.220076.3.579.2.174 1956 Unknown [id number] 2.16.840.1.392146.3.579.2.174 1956 Unknown [id number] 2.16.840.1.179497.3.579.2.174 1956 Unknown [id number] 2.16.840.1.507205.3.579.2.174 1956 Unknown [id number] 2.16.840.1.769193.3.579.2.174 1956 Unknown [id number] 2.16.840.1.778854.3.579.2.174 1956 Unknown [id number] 2.16.840.1.529132.3.579.2.356 1956 Unknown [id number] 2.16.840.1.373384.3.579.2.125 9 1956 Unknown [id number] 2.16.840.1.412070.3.579.2.125 9 1956 Unknown [id number] 2.16.840.1.815632.3.579.2.125 9 1956 Unknown [id number] 2.16.840.1.951718.3.579.2.125 9 1956 Unknown [id number] 2.16.840.1.163377.3.579.2.125 9 1956 Unknown [id number] 2.16.840.1.185320.3.579.2.125 9 1956 Unknown [id number] 2.16.840.1.046684.3.579.2.125 9 1956 Unknown [id number] 2.16.840.1.960147.3.579.2.125 9 1956 Unknown [id number] 2.16.840.1.943071.3.579.2.125 9 1956 Unknown [id number] 2.16.840.1.272251.3.579.2.125 9 1956 Unknown [id number] 2.16.840.1.760053.3.579.2.125 9 1956 Unknown [id number] 2.16.840.1.223363.3.579.2.125 9 1956 Unknown [id number] 2.16.840.1.225996.3.579.2.125 9 1956 Unknown [id number] 2.16.840.1.537476.3.579.2.125 9 1956 Unknown [id number] 2.16.840.1.505696.3.579.2.125 9 1956 Unknown [id number] 2.16.840.1.664477.3.579.2.125 9 1956 Unknown [id number] 2.16.840.1.986495.3.579.2.125 9 1956 Unknown [id number] 2.16.840.1.005996.3.579.2.125 9 1956 Unknown [id number] 2.16.840.1.946383.3.579.2.125 9 1956 Unknown [id number] 2.16.840.1.742913.3.579.2.125 9 1956 Unknown [id number] 2.16.840.1.638374.3.579.2.125 9 1956 Unknown [id number] 2.16.840.1.119053.3.579.2.727 1956 Unknown [id number] 2.16.840.1.465361.3.579.2.727 1956 Unknown [id number] 2.16.840.1.563565.3.579.2.727 1956 Unknown [id number] 2.16.840.1.254120.3.579.2.727 1956 Unknown [id number] 2.16840.1.977058.3.579.2.72 1956 Unknown [id number] 2.16.840.1.956745.3.579.2.727 1956 Unknown [id number] 2.16.840.1.762918.3.579.2.727 1956 Unknown [id number] 2.16.840.1.451139.3.579.2.727 1956 Unknown [id number] 2.16.840.1.718623.3.579.2.72 1956 Unknown [id number] 2.16.840.1.894561.3.579.2. 1956 Unknown [id number] 2.16.840.1.774806.3.579.2 1956 Unknown [id number] 2.16.840.1.596794.3.579.2. 1956 Unknown [id number] 2.16.840.1.004399.3.579.2. 1956 Unknown [id number] 2.16.840.1.634298.3.579.2 1956 Unknown [id number] 2.16.840.1.238175.3.579.2 1956 Unknown [id number] 2.16.840.1.660300.3.579.2 1956 Unknown [id number] 2.16.840.1.481865.3.579.2 1956 Unknown [id number] 2.16.840.1.232699.3.579.2 1956 Unknown [id number] 2.16.840.1.133764.3.579.2 1956 Unknown [id number] 2.16.840.1.860653.3.579.2 1956 Unknown [id number] 2.16.840.1.552720.3.579.2 1956 Unknown [id number] 2.16.840.1.487459.3.579.2 1956 Unknown [id number] 2.16.840.1.835736.3.579.2 1956 Unknown [id number] 2.16.840.1.965135.3.579.2 1956 Unknown [id number] 2.16.840.1.124642.3.579.2.72 1956 Unknown [id number] 2.16.840.1.478397.3.579.2. 1956 Unknown [id number] 2.16.840.1.393143.3.579.2. 1956 Unknown [id number] 2.16.840.1.019967.3.579.2. 1956 Unknown [id number] 2.16.840.1.080554.3.579.2. 1956 Unknown [id number] 2.16.840.1.918924.3.579.2 1956 Unknown [id number] 2.16.840.1.801718.3.579.2 1956 Unknown [id number] 2.16.840.1.657972.3.579.2 1956 Unknown [id number] 2.16.840.1.668692.3.579.2 1956 Unknown [id number] 2.16.840.1.568415.3.579.2 1956 Unknown [id number] 2.16.840.1.432803.3.579.2 1956 Unknown [id number] 2.16.840.1.870449.3.579.2 1956 Unknown [id number] 2.16.840.1.029592.3.579.2. 1956 Unknown [id number] 2.16.840.1.991588.3.579.2 1956 Unknown [id number] 2.16.840.1.316510.3.579.2 1956 Unknown [id number] 2.16.840.1.485551.3.579.2.727 1956 Unknown [id number] 2.16.840.1.709283.3.579.2.727 1956 Unknown [id number] 2.16.840.1.075897.3.579.2.727 1956 Unknown [id number] 2.16.840.1.762705.3.579.2.727 1956 Unknown [id number] 2.16.840.1.815566.3.579.2.7 Plan of Treatment Date Care Activity Detail Author Start: 07-07-2032 Screening for malignant neoplasm of colon [facility] Start: 01-04-2024 End: 01-04-2024 Patient encounter procedure 01/04/2024 9:00 AM EDT Office Visit [facility] [address] [place] [id number] Joan Warner DO [address] [place] [address] [facility] Start: 09-05-2023 End: 09-05-2023 Patient encounter procedure 09/05/2023 10:30 AM EST Office Visit [facility] [address] [place] [id number] Brady Colindres, DPM [facility] [address] [place] [address] [facility] Start: 08-24-2023 End: 08-24-2023 Patient encounter procedure 08/24/2023 8:00 AM EST Procedure Visit [facility] Brady Colindres, DPM [facility] [address] [place] [address] [facility] Start: 08-16-2023 End: 08-16-2023 Patient encounter procedure 08/16/2023 8:15 AM EST Office Visit [facility] [address] [place] [address] Reggie Marie PA [address] [place] [address] [facility] Start: 03-10-2023 Influenza vaccination Influenza Vaccine (#1) [facility] Start: 03-10-2022 Influenza vaccination Flu vaccine (#1) [facility] Start: 02-23-2022 End: 02-23-2022 Patient encounter procedure 02/23/2022 Appointment Physical Therapy Otis Edward [facility] Start: 02-21-2022 End: 02-21-2022 Patient encounter procedure 02/21/2022 Appointment Physical Therapy Otis Edward [facility] Start: 02-18-2022 End: 02-18-2022 Patient encounter procedure 02/18/2022 Appointment Physical Therapy Otis Edward [facility] Start: 02-16-2022 End: 02-16-2022 Patient encounter procedure 02/16/2022 Appointment Physical Therapy Otis Edward [facility] Start: 02-14-2022 End: 02-14-2022 Patient encounter procedure 02/14/2022 Appointment Physical Therapy Marcella Dover [facility] Start: 02-11-2022 End: 02-11-2022 Patient encounter procedure 02/11/2022 Appointment Physical Therapy Kyara Villegas, PT [facility] Start: 02-09-2022 End: 02-09-2022 Patient encounter procedure 02/09/2022 Appointment Physical Therapy Otis Edward [facility] Start: 02-07-2022 End: 02-07-2022 Patient encounter procedure 02/07/2022 Appointment Physical Therapy Otis Edward [facility] Start: 02-04-2022 End: 02-04-2022 Patient encounter procedure 02/04/2022 Appointment Physical Therapy Otis Edward [facility] Start: 02-02-2022 End: 02-02-2022 Patient encounter procedure 02/02/2022 Appointment Physical Therapy Otis Edward [facility] Start: 04-07-2022 COVID-19 Vaccine (4 - Booster for Moderna series) COVID-19 Vaccine (4 - Booster for Moderna series) [facility] Start: 10-14-2021 COVID-19 Vaccine (4 - Booster) COVID-19 Vaccine (4 - Booster) [facility] Start: 2021 Pneumococcal 65+ years Vaccine (1 - PCV) Pneumococcal 65+ years Vaccine (1 - PCV) [facility] Start: 2021 Pneumococcal Vaccine: 65+ Years (2 - PCV) Pneumococcal Vaccine: 65+ Years (2 - PCV) [facility] Start: 2011 Screening for osteoporosis DEXA (modify frequency per FRAX score) [facility] Start: 2006 Screening for malignant neoplasm of breast Breast cancer screen [facility] Start: 2006 Shingles vaccine (1 of 2) Shingles vaccine (1 of 2) [facility] Start: 2001 Screening for malignant neoplasm of colon [facility] Start: 1996 Lipid panel Lipids [facility] Start: 1996 Screening for malignant neoplasm of breast Mammogram [facility] Start: 1986 Screening for malignant neoplasm of cervix [facility] Start: 1977 Screening for malignant neoplasm of cervix Pap smear [facility] Start: 1975 DTaP/Tdap/Td vaccine (1 - Tdap) DTaP/Tdap/Td vaccine (1 - Tdap) [facility] Start: 1974 Hepatitis C screening Hepatitis C screen [facility] Start: 1971 HIV screening HIV screen [facility] Start: 1968 Depression Screen Depression Screen [facility] Start: 1956 Annual Wellness Visit (AWV) Annual Wellness Visit (AWV) [facility] Start: 1956 Screening for malignant neoplasm of colon [facility] Problems Active Problems Problem Classification Problem Date [...] 07-30-2021 Unclassified (20 sources) Vaccination given 05-10-2022 Procedures Date Procedure Procedure Detail Performing Clinician Start: 08-16-2023 Radiologic examinati on knee 3 views Reggie BADILLO Work Phone: Start: 08-14-2023 [facility] BMP Brady D Dol ce DPM [facility] Work Phone: Start: 08-14-2023 [facility] CBC W/ AUTO DIFF M arc D Dolce DPM [facility] Work Phone: Start: 08-14-2023 [facility] EGFR Brady D Dol ce DPM [facility] Work Phone: Start: 07-07-2022 Colonoscopy Brady Colindres DPM FACFAS Work Phone: Start: 07-07-2022 Colonoscopy [...] NON E Comment on above: RIGHT FOOT Results Test Name Value Interpretation Reference Range [facility] Family Medicine Office/Clini c Noteon 01-07-2024 Family Medicine Office/Clinic Note Family Medicine Office/Clinic Note Chief Complaint Patient presents today for surgical clearance, R foot HPI Staff Date of Procedure: 01/24/24 Surgeon: Dr. Colindres Facility: _ Procedure: R foot Preoperative medical evaluation questions Questions 1. Do you usually get chest pain or breathlessness when you climb up two flights of stairs at normal speed? Denies 2. Do you have kidney disease? Denies 3. Has anyone in your family (blood relatives) had a problem following an anaesthetic? Denies 4. Have you ever had a heart [...] Denies 14. Do you suffer from asthma? Denies 15. Do you have diabetes that requires insulin? Denies 16. Do you have diabetes that requires tablets only? Denies 17. Do you suffer from bronchitis? Denies History of Present Illness I have reviewed staff HPI and it is correct. Angela Alonzo is a 68-year-old female here for surgical clearance. The patient reports experiencing numbness in her foot, extending from the tip of her toes to her ankles, which impedes her ability to walk. She has sought consultation with a vascular specialist, who is scheduled for vein surgery on her right leg next week. The proposed procedure involves straightening her big toe and addressing a bunion. Additionally, she has a hammertoe between all 3 toes, with the second and third toes curling under during ambulation, causing significant sensitivity. She reports no pain in the bottom of her foot, but describes a sensation derek to something being present. The duration of her surgery remains unknown to her. A chest x-ray and an EKG were conducted in 08/2022, which was normal. She is scheduled for an MRI at [facility] on 01/05/2024 at 6:45 a.m. She occasionally experiences sharp pain in the knot, which she initially attributed to calcium build-up. She is scheduled to see a specialist on , 01/04/2024. She underwent knee replacement surgery 2 years ago. Her mobility is significantly compromised, limiting her ability to walk to the mailbox or the grocery store, necessitating a cart due to her inability to stand on her toes. She attends chiropractic sessions once a week. She is on Zyrtec, Lexapro, hydroxyzine for itching, allergic medication, Singulair, calcium, and vitamin D. She has not had to use her inhalers. She reports mild dry cough in the morning, but denies wheezing. She is not taking gabapentin. She describes her belly as rolling and pulling. She has been using Neosporin and cortisone cream. She has tried Vaseline. She had a history of fungal infection on her leg due to a razor use. She is allergic to razor. She reports stress due to his son and . She states that she used to walk 6 to 7 miles in her 30s. Review of Systems PHQ Score Initial Depression Screen Score: 0 SCORE All negative except as noted in the HPI. Physical Exam Vitals & Measurements T: 36.6 ?C(Temporal Artery) HR: 71(Peripheral) RR: 18 BP: 128/76 SpO2: 99% HT: 67 in HT: 170 cm WT: 106 kg WT: 233.2 lb BMI: 36.68 General: Obese female, well hydrated, and in no acute distress. Eyes: EOMI, conjunctiva and sclera are clear Ears: No deformity or lesion of external ear. Canals and TM appear normal bilaterally. TM's intact and pearly holcomb with normal light reflex. Hearing grossly normal and conversational to speech Nose: no deformity, discharge, inflammation or lesions Mouth: Mucous membranes moist with non-erythematous or edematous oropharynx and posterior pharynx. Tongue normal and free of lesions. Neck: supple, trachea is midline with no masses or lymphadenopathy. Thyroid is without nodules or tenderness Lungs: Normal respiratory effort and clear to auscultation Cardio: regular rate and rhythm, no murmur or rub Musculoskeletal: No deformity or scoliosis noted. Normal range of motion. Joints normal. No erythema, edema, effusion, or ecchymosis Extremity: No clubbing, cyanosis, edema, or deformity, with normal ROM in both upper and lower bilateral extremities Neurologic: Grossly normal Skin: No rashes, ulcerations, or suspicious lesions on exposed skin Mental Status: Alert and oriented x3. Normal mood and affect. Assessment/Plan After assessment of available pertinent labs and diagnostic tests, I feel this patient is medically optimized for surgery. Final discretion of whether the patient is cleared for surgery remains up to the surgeon/anesthesiol ogist. 1. Pre-op exam (Z01.818: E (more content not included)... Normal [facility] Comment on above: Result Comment: Elec tronically Signed By: Guerita Knapp PA-C\.br\Date and Time Signed: 01/07/24 21:36 EDT\.br\Electronically Co-Signed By: Sonia Jane\.br\Date and Time Co-Signed: 01/02/24 14:04 EDT Ambulatory Visit Summaryon 0 01-02-2024 Ambulatory Visit Summary ANGELA ALONZO :1955 Visit Date:01/02/2024 Ambulatory Visit Instructions Your [...] oral cap) fluticasone nasal (Flonase 0.05 mg/inh [place]) omega-3 polyunsaturated fatty acids (Fish Oil 500 [...] Follow-Up Appointments Monday 10:40 AM EDT Where: [facility] Normal [address] [place] [address]- \.br\ You Need to Schedule the Following Appointments\.br\ Follow Up with Guerita Knapp PA-C When: In 6 months\.br\ Comments:\.br\ For check up\.br\ Where:\.br\ [address]\.br\ [place] [address]-\.br\ [phone]\.br\ Medications\.br\ What How Much When Instructions\.br\ Unchanged cetirizine (cetirizine 10 mg Tab) 1 Tablets By Mouth Every day Pickup at [facility] [id number]\.br\ Unchanged escitalopram (escitalopram 20 mg Tab) 1 Tablets By Mouth Every day\.br\ Unchanged hydrOXYzine (hydrOXYzine hydrochloride 25 mg Tab) 1 Tablets By Mouth 4 times a day as needed for as needed for itching Pickup at [facility] [id number]\.br\ Unchanged montelukast (Singulair 10 mg Tab) 1 Tablets By Mouth Once a day (in the evening) Pickup at [facility] [id number]\.br\ Unchanged albuterol (Albuterol (Eqv-ProAir HFA) 90 mcg/ [...] Unchanged fluticasone nasal (Flonase 0.05 mg/ inh [place]) 2 Sprays Nasal Inhalation Every day each nostril Contact prescribing physician if questions or concerns \.br\ Unchanged Misc Prescription (Handicapped Parking Placard) 0 5 year duration Contact prescribing physician if questions or concerns \.br\ Unchanged omega-3 polyunsaturated fatty acids (Fish Oil 500 mg oral capsule) 2 Capsules By Mouth 2 times a day Contact prescribing physician if questions or concerns \.br\ Pharmacy Information\.br\ [facility] [id number]: [address] [place], [place] [phone]\.br\ Allergies\.br\ Anaprox (Nausea)\.br\ amoxicillin (Rash)\.br\ codeine (Lightheaded, [...] and frozen vegetables.\.br\ ? \.br\ Avoid buying hbked-te-nqq foods, such as pre-cut fruits and vegetables and pre-made salads.\.br\ ? \.br\ If possible, shop around to discover where you can find the best prices. Consider other retailers such as [employer] stores, larger wholesale stores, local fruit and vegetable [employer], and [employer] markets.\.br\ ? \.br\ Do not shop when [...] instead of beef.\.br\ ? \.br\ Choose canne [facility] BMPon 01-02-2024 Anion gap [Moles/Vol] 10 mmol/L Normal 6-16 [facility] Comment on above: Performed By: #### 2 [id number] #### [facility] [address] [place] [address] Calcium [Mass/Vol] 10.2 mg/dL Normal 8.9-11.1 [facility] Comment on above: Performed By: #### 2 690255 #### [facility] [address] [place] [address] Chloride [Moles/Vol] 105 mmol/L Normal 101-111 [facility] Comment on above: Performed By: #### 2 268736 #### [facility] [address] [place] [address] CO2 [Moles/Vol] 27 mmol/L Normal 21-31 [facility] Comment on above: Performed By: #### 2 761069 #### [facility] [address] [place] [address] Creatinine [Mass/Vol] 0.7 mg/dL Normal 0.5-1.3 [facility] Comment on above: Performed By: #### 2 791523 #### [facility] [address] [place] [address] Glucose [Mass/Vol] 77 mg/dL Normal 55-199 [facility] Comment on above: Performed By: #### 2 196428 #### [facility] [address] [place] [address] Potassium [Moles/Vol] 4.0 mmol/L Normal 3.5-5.3 [facility] Comment on above: Performed By: #### 2 260358 #### [facility] [address] [place] [address] Sodium [Moles/Vol] 138 mmol/L Normal 135-145 [facility] Comment on above: Performed By: #### 2 228514 #### [facility] [address] [place] [address] Urea nitrogen [Mass/Vol] 16 mg/dL Normal 5-21 [facility] Comment on above: Performed By: #### 2 616016 #### [facility] [address] [place] [address] Urea nitrogen/Creatinine [Mass ratio] 23 No Units High 10-20 [facility] Comment on above: Performed By: #### 2 404946 #### [facility] [address] [place] [address] CBC w/ Auto Diffon 4 Basophils/100 WBC (Bld) 0.8 % Normal 0.0-2.0 [facility] Comment on above: Performed By: #### 2 803664 #### [facility] [address] [place] [address] Basophils/Leukocytes Auto (Bld) [Pure # fraction] 0.1 E9/L Normal 0.0-0.2 [facility] Comment on above: Performed By: #### 2 907562 #### [facility] [address] [place] [address] Eosinophils (Bld) [#/Vol] 0.2 E9/L Normal 0.0-0.5 [facility] Comment on above: Performed By: #### 2 398149 #### [facility] [address] [place] [address] Eosinophils/100 WBC (Bld) 2.6 % Normal 0.0-8.0 [facility] Comment on above: Performed By: #### 2 083415 #### [facility] [address] [place] [address] Erythrocyte distribution width (RBC) [Ratio] 13.4 % Normal 10.9-14.2 [facility] Comment on above: Performed By: #### 2 171085 #### [facility] [address] [place] [address] Hematocrit (Bld) [Volume fraction] 42.1 % Normal 34.0-46.0 [facility] Comment on above: Performed By: #### 2 215668 #### [facility] [address] [place] [address] Hemoglobin (Bld) [Mass/Vol] 14.4 g/dL Normal 12.0-16.0 [facility] Comment on above: Performed By: #### 2 367633 #### [facility] [address] [place] [address] Lymphocytes (Bld) [#/Vol] 1.9 E9/L Normal 1.0-4.0 [facility] Comment on above: Performed By: #### 2 903090 #### [facility] [address] [place] [address] Lymphocytes/100 WBC (Bld) 30.4 % Normal 14.0-50.0 [facility] Comment on above: Performed By: #### 2 079337 #### [facility] [address] [place] [address] MCH (RBC) [Entitic mass] 31.0 pg Normal 27.0-34.0 [facility] Comment on above: Performed By: #### 2 604078 #### [facility] [address] [place] [address] MCHC (RBC) [Mass/Vol] 34.3 g/dL Normal 31.4-36.0 [facility] Comment on above: Performed By: #### 2 709432 #### [facility] [address] [place] [address] MCV (RBC) [Entitic vol] 90.4 fL Normal 80.0-100.0 [facility] Comment on above: Performed By: #### 2 797488 #### [facility] [address] [place] [address] Monocytes (Bld) [#/Vol] 0.8 E9/L Normal 0.2-1.0 [facility] Comment on above: Performed By: #### 2 448816 #### [facility] [address] [place] [address] Neutrophils (Bld) [#/Vol] 3.4 E9/L Normal 2.0-7.5 [facility] Comment on above: Performed By: #### 2 517028 #### [facility] [address] [place] [address] Neutrophils/100 WBC (Bld) 53.3 % Normal 36.0-75.0 [facility] Comment on above: Performed By: #### 2 710187 #### [facility] [address] [place] [address] Platelet 272.0 E9/L Normal 150.0-500.0 [facility] Comment on above: Performed By: #### 2 694807 #### [facility] [address] [place] [address] Platelet mean volume (Bld) [Entitic vol] 9.8 fL Normal 6.4-10.8 [facility] Comment on above: Performed By: #### 2 315322 #### [facility] [address] [place] [address] RBC (Bld) [#/Vol] 4.7 E12/L Normal 4.3-5.9 [facility] Comment on above: Performed By: #### 2 351139 #### [facility] [address] [place] [address] WBC corrected for nucl RBC Auto (Bld) [#/Vol] 6.4 E9/L Normal 4.0-11.0 [facility] Comment on above: Performed By: #### 2 537302 #### [facility] [address] [place] [address] CHEMISTRYOrdered By: SYSTEM SYSTEM on 01-02-2024 Anion [...] fruits, and frozen vegetables. ? Avoid buying cieye-im-uqs foods, such as pre-cut fruits and vegetables and pre-made salads. ? If possible, shop around to discover where you can find the best prices. Consider other retailers such as [employer] stores, larger wholesale stores, local fruit and vegetable stands, and [employer] markets. ? Do not shop when you [...] for buyi (more content not included)... Normal [facility] Physician Orderon 01-02-2024 Physician Order [id number] 615#1.00TIFF Normal [facility] eGFRon 01-02-2024 eGFR 94 mL/min/1.73 m2 Normal >=59 [facility] Comment on above: Order Comment: Order added by Discern Expert. Performed By: #### 1 [id number] #### [facility] [address] [place] [address] Nurse Consultation Noteon Nurse Consultation Note Reason [...] 2 cap(s), Oral, BID Flonase 0.05 mg/inh [place], 2 spray(s), Nasal, Daily gabapentin 300 mg [...] 09/08/2020 Recorded pneumococcal 23-valent vaccine 04/07/2005 Recorded [facility] Physician Orderon 12-29-2023 Physician Order [id number] 8#1.00TIFF [facility] Formson 12-18-2023 Forms [id number] E6#1.00TIFF [facility] Nurse Consultation Noteon Nurse Consultation Note Reason [...] 2 cap(s), Oral, BID Flonase 0.05 mg/inh [place], 2 spray(s), Nasal, Daily gabapentin 300 mg [...] Recorded pneumococcal 23-valent vaccine 04/07/2005 Recorded Normal [facility] Nurse Consultation Noteon Nurse Consultation Note [...] 2 cap(s), Oral, BID Flonase 0.05 mg/inh [place], 2 spray(s), Nasal, Daily gabapentin 300 mg [...] pneumococcal 23-valent vaccine 04/07/2005 Recorded Normal [facility] Nurse Consultation Noteon Nurse Consultation Note Reason [...] 2 cap(s), Oral, BID Flonase 0.05 mg/inh [place], 2 spray(s), Nasal, Daily gabapentin 300 mg [...] pneumococcal 23-valent vaccine 04/07/2005 Recorded Normal [facility] Nurse Consultation Noteon Nurse Consultation Note Reason [...] 2 cap(s), Oral, BID Flonase 0.05 mg/inh [place], 2 spray(s), Nasal, Daily gabapentin 300 mg [...] pneumococcal 23-valent vaccine 04/07/2005 Recorded Normal [facility] [place] Mamm Screen w/CAD if perf and [...] very important to your health. The current [employer] and National Comprehensive Cancer [...] 2-Benign finding Recommendation: Normal interval follow-up Normal [facility] Consent for Treatmenton 10-08 Consent for Treatment [id number] D1#1.00TIFF Normal [facility] Nurse Consultation Noteon Nurse Consultation Note [...] 2 cap(s), Oral, BID Flonase 0.05 mg/inh [place], 2 spray(s), Nasal, Daily gabapentin 300 mg [...] pneumococcal 23-valent vaccine 04/07/2005 Recorded Normal [facility] Ambulatory Visit Summaryon 0 10-02-2023 Ambulatory Visit Summary ANGELA ALONZO Elvin :1955 Visit Date:10/02/2023 Ambulatory Visit Instructions Your Care Team Attending Physician - Guerita Knapp PA-C Primary Care Physician - Guerita Knapp PA-C This Is Your Medications List [facility] Prescription (Handicapped Parking Placard) albuterol (Albuterol (Eqv-ProAir [...] mg Tab) fluticasone nasal (Flonase 0.05 mg/inh [place]) gabapentin (gabapentin 300 mg Cap) hydrOXYzine (hydrOXYzine [...] Follow-Up Appointments Monday 10:40 AM EDT Where: [facility] [place] Normal [address] [place] [address]- \.br\ Medications\.br\ What How Much When Instructions\.br\ [...] Unchanged fluticasone nasal (Flonase 0.05 mg/ inh [place]) 2 Sprays Nasal Inhalation Every day each [...] for choosing us for your care.\.br\ \.br\ [facility] Nurse Consultation Noteon Nurse Consultation Note [...] 2 cap(s), Oral, BID Flonase 0.05 mg/inh [place], 2 spray(s), Nasal, Daily gabapentin 300 mg [...] Recorded pneumococcal 23-valent vaccine 04/07/2005 Recorded Normal [facility] Nurse Consultation Noteon Nurse Consultation Note [...] 2 cap(s), Oral, BID Flonase 0.05 mg/inh [place], 2 spray(s), Nasal, Daily gabapentin 300 mg [...] pneumococcal 23-valent vaccine 04/07/2005 Recorded Normal [facility] Ambulatory Visit Summaryon 0 09-04-2023 Ambulatory Visit Summary ANGELA ALONZO :1955 Visit Date:09/04/2023 Ambulatory Visit Instructions Your Diagnosis Allergic rhinitis, seasonal Your Care Team Attending Physician - Guerita Knapp PA-C Primary Care Physician - Guerita Knapp PA-C This Is Your Medications List [facility] Prescription (Handicapped Parking Placard) albuterol (Albuterol (Eqv-ProAir [...] mg Tab) fluticasone nasal (Flonase 0.05 mg/inh [place]) gabapentin (gabapentin 300 mg Cap) hydrOXYzine (hydrOXYzine [...] Follow-Up Appointments Monday 10:40 AM EDT Where: [place] [id number]- \.br\ Medications\.br\ What How Much When Instructions\.br\ [...] Unchanged fluticasone nasal (Flonase 0.05 mg/ inh [place]) 2 Sprays Nasal Inhalation Every day each [...] for choosing us for your care.\.br\ \.br\ [facility] Nurse Consultation Noteon Nurse Consultation Note [...] 2 cap(s), Oral, BID Flonase 0.05 mg/inh [place], 2 spray(s), Nasal, Daily gabapentin 300 mg [...] pneumococcal 23-valent vaccine 04/07/2005 Recorded Normal [facility] Provider Letteron 08-23-2023 Provider Letter [address] [place] [address] [phone] August 23, 2023 ANGELA ALONZO [address] [place] [address] : [address] Colindres The above patient has been evaluated at your request on 08/14/23 for preoperative clearance. After assessment of available pertinent labs and diagnostic tests performed on 08/14/23 and 08/15/23, I feel this patient is medically optimized for surgery. Final discretion of whether the patient is cleared for surgery remains up to the surgeon/anesthesiol ogist. Thank you, ARMAND Torre, VAUGHN Lopez: [facility] Nurse Consultation Noteon Nurse Consultation Note [...] 2 cap(s), Oral, BID Flonase 0.05 mg/inh [place], 2 spray(s), Nasal, Daily gabapentin 300 mg [...] Recorded pneumococcal 23-valent vaccine 04/07/2005 Recorded Normal [facility] Physician Referralon 024 Physician Referral [id number] 126#1.00TIFF [facility] Consultation Noteon 08-16-19 24 Consultation Note [id number] 0F#1.00TIFF [facility] Family Medicine Office/Clini c Noteon 08-16-2023 Family Medicine Office/Clinic Note Chief Complaint Surgery Clearance [facility] Staff Preoperative medical evaluation questions for a [...] sounds, n (more content not included)... Normal [facility] Comment on above: Result Comment: Elec tronically Signed By: Guerita Knapp PA-C\.br\Date and Time Signed: 08/16/23 21:29 EST\.br\Electronically Co-Signed By: Luiz Crowley\.br\Date and Time Co-Signed: 08/14/23 14:15 EST\.br\Electronically Co-Signed By: Luiz Crowley XR Knee - right 3 [facility] Radiology Study observation (narrative) [facility] Result: Bilateral standing PA, bilateral sunrise, and lateral of the affected knee were imaged today in the office. Patient has total knee arthroplasty on the right knee with no evidence of acute fracture or loosening of the component. She has excellent alignment of the prosthesis and joint her left knee is arthritic with roqe-om-mzed changes to the medial compartment as well as patellofemoral joint. [facility] Consent for Treatmenton Consent for Treatment [id number] 94#1.00TIFF Normal [facility] Consultation Noteon 08-15-19 24 Consultation Note [id number] D2#1.00TIFF Normal [facility] XR Chest 2 Viewson 4 XR [...] FINAL REPORT Dictated: 08/15/2023 11:01 am Augustus Page MD, V. Signed (Electronic Signature): 08/15/2023 11:01 am Signed by: Augustus Page MD, V. Transcribed by: DURGA Technologist: ARMIN Technical Comments Radiation Dose: Ka,r in mGy = na DAP = na Normal [facility] BMPon 08-14-2023 Anion gap [Moles/Vol] 10 mmol/L Normal - [facility] Comment on above: Performed By: #### 1 0305487, 4309368, 6088659 ####[facility] [address] [place] [address] BUN/Creat Ratio 21 No Units High 10-20 [facility] Comment on above: Performed By: #### 1 9623139, 1903220, 3554245 ####[address] [address] Calcium [Mass/Vol] 9.8 mg/dL Normal 8.9-11.1 [facility] Comment on above: Performed By: #### 1 9287134, 5443638, 3521490 ####[address] [address] Chloride [Moles/Vol] 103 mmol/L Normal 101-111 [facility] Comment on above: Performed By: #### 1 9409240, 1164465, 0322841 ####[address] [address] CO2 [Moles/Vol] 29 mmol/L Normal 21-31 [facility] Comment on above: Performed By: #### 1 7498178, 1903897, 7270215 ####[address] [address] Creatinine [Mass/Vol] 0.8 mg/dL Normal 0.5-1.3 [facility] Comment on above: Performed By: #### 1 1412231, 7537741, 3221051 ####[address] [address] Glucose [Mass/Vol] 79 mg/dL Normal 55-199 [facility] Comment on above: Performed By: #### 1 8313464, 0210023, 5098408 ####[address] [address] Potassium [Moles/Vol] 4.2 mmol/L Normal 3.5-5.3 [facility] Comment on above: Performed By: #### 1 2772799, 0911776, 9586668 ####[address] [address] Sodium [Moles/Vol] 138 mmol/L Normal 135-145 [facility] Comment on above: Performed By: #### 1 2058500, 5980854, 8836342 ####[place] [address] Urea nitrogen [Mass/Vol] 17 mg/dL Normal 5-21 [facility] Comment on above: Performed By: #### 1 1010048, 3226820, 3633391 ####[address] [address] CBC w/ Auto Diffon 4 Basophil Absolute 0.1 E9/L Normal 0.0-0.2 [facility] Comment on above: Performed By: #### 1 5907437, 7389936, 1605247 ####[place] [address]8557 Basophils/100 WBC (Bld) 0.9 % Normal 0.0-2.0 [facility] Comment on above: Performed By: #### 1 3802265, 0694590, 8410968 ####[place] [address]8557 Eos Absolute 0.1 E9/L Normal 0.0-0.5 [facility] Comment on above: Performed By: #### 1 6478724, 4416230, 7271453 ####[place] [address]57 Eosinophils/100 WBC (Bld) 2.4 % Normal 0.0-8.0 [facility] Comment on above: Performed By: #### 1 1161456, 0885527, 9680328 ####[address] [address] Erythrocyte distribution width (RBC) [Ratio] 14.4 % High 10.9-14.2 [facility] Comment on above: Performed By: #### 1 4751007, 7359252, 5057825 ####[address] [address] Hematocrit (Bld) [Volume fraction] 44.0 % Normal 34.0-46.0 [facility] Comment on above: Performed By: #### 1 1655650, 7373718, 6167139 ####[address] [address] Hemoglobin (Bld) [Mass/Vol] 14.3 g/dL Normal 12.0-16.0 [facility] Comment on above: Performed By: #### 1 4227857, 0339964, 8766595 ####[address] [address] Lymph Absolute 1.6 E9/L Normal 1.0-4.0 [facility] Comment on above: Performed By: #### 1 1563726, 3566994, 5519022 ####[address] [address] Lymphocytes/100 WBC (Bld) 27.6 % Normal 14.0-50.0 [facility] Comment on above: Performed By: #### 1 0130185, 2906720, 5973450 ####[address] [address] MCH (RBC) [Entitic mass] 29.5 pg Normal 27.0-34.0 [facility] Comment on above: Performed By: #### 1 8096219, 6062654, 5852574 ####[address] [address] MCHC (RBC) [Mass/Vol] 32.3 g/dL Normal 31.4-36.0 [facility] Comment on above: Performed By: #### 1 5491876, 3241011, 8663060 ####[address] [address] MCV (RBC) [Entitic vol] 91.5 fL Normal 80.0-100.0 [facility] Comment on above: Performed By: #### 1 5721602, 7656876, 9764726 ####[address] [address] [place] Absolute 0.7 E9/L Normal 0.2-1.0 [facility] Comment on above: Performed By: #### 1 9331360, 3047653, 6839677 ####[address] [address] Monocytes/100 WBC (Bld) 11.6 % Normal 4.0-14.0 [facility] Comment on above: Performed By: #### 1 4687251, 9502301, 9859997 ####[address] [address] Neutro Absolute 3.4 E9/L Normal 2.0-7.5 [facility] Comment on above: Performed By: #### 1 5813956, 0772773, 2864604 ####[address] [address] NEUTRO AUTO 57.5 % Normal 36.0-75.0 [facility] Comment on above: Performed By: #### 1 5429142, 7003382, 5936321 ####[address] [address] Platelet 291.0 E9/L Normal 150.0-500.0 [facility] Comment on above: Performed By: #### 1 1778518, 5599924, 7320221 ####[address] [address] Platelet mean volume (Bld) [Entitic vol] 9.7 fL Normal 6.4-10.8 [facility] Comment on above: Performed By: #### 1 0006859, 2574383, 4203724 ####[address] [address] RBC 4.8 E12/L Normal 4.3-5.9 [facility] Comment on above: Performed By: #### 1 4286378, 3241287, 1629508 ####[address] [address] WBC 5.8 E9/L Normal 4.0-11.0 [facility] Comment on above: Performed By: #### 1 3289966, 3264020, 4544832 ####[address] [address] CHEMISTRYOrdered By: SYSTEM SYSTEM on 08-14-2023 Anion [...] mg/mg High 10 - 20 Remisol Chem [facility] BMPon 08-14-2023 [facility] AGAP 10 [facility] BUN/CREAT RATIO 21 High [facility] CBC W/ AUTO DIFFon Basophils (Bld) [#/Vol] 0.1 10*3/uL [facility] Healthcare EOS ABSOLUTE 0.1 [facility] Healthcare LYMPH ABSOLUTE 1.6 [facility] MONO ABSOLUTE 0.7 [facility] NEUTRO ABSOLUTE 3.4 [facility] Platelets (Bld) [#/Vol] 291.0 10*3/uL [facility] RBC (Bld) [#/Vol] 4.8 10*6/uL [facility] WBC (Bld) [#/Vol] 5.8 10*3/uL [facility] Healthcare [facility] EGFRon 08-14-2023 [facility] EGFR 81 - PINF [facility] Order added by Discern Expert. Original Ordering Provider: CORRIE Colindres CLINISYNC HEMATOLOGYOrdered By: SYSTEM SYSTEM on 08-14-2023 Basophil [...] Normal 80.0 - 100.0 fL Remisol Heme Hyde Absolute 0.7 E9/L Normal 0.2 - 1.0 [...] Remisol H jaye No Panel Informationon 08-14 Interpretation and review of laboratory results Abnormal [facility] Original Ordering Provider: CORRIE Colindres 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 ? Change your dressing as told by [...] ask your health care provider. ? Take aoqs-ghy-vgzwijg and prescription medicines only as told by your health care provider. ? Your medicines may cause constipation. To prevent or treat constipation, you may need to: ? Drink enough fluid to keep your urine pale yellow. ? Take xoic-mdn-knskekj or prescription medicines. ? Eat foods that are high in fiber, such as beans, whole grains, and fresh fruits and vegetables. ? Limit foods that are high in fat and processed sugars, such as fried or sweet foods. ? Do not wear high heels or tight-fitting shoes, even after you heal. ? K (more content not included)... Normal [facility] Physician Orderon 08-14-2023 Physician Order [id number] 50#1.00TIFF Normal [facility] eGFRon 08-14-2023 eGFR 81 mL/min/1.73 m2 Normal >=59 [facility] Comment on above: Order Comment: Order added by Discern Expert. Performed By: #### [id number] ####[facility] [id number] [place] [address] Nurse Consultation Noteon Nurse Consultation Note Reason [...] 2 cap(s), Oral, BID Flonase 0.05 mg/inh [place], 2 spray(s), Nasal, Daily gabapentin 300 mg [...] pneumococcal 23-valent vaccine 04/07/2005 Recorded Normal [facility] Nurse Consultation Noteon Nurse Consultation Note Reason [...] 2 cap(s), Oral, BID Flonase 0.05 mg/inh [place], 2 spray(s), Nasal, Daily gabapentin 300 mg [...] Recorded pneumococcal 23-valent vaccine 04/07/2005 Recorded Normal [facility] Physician Orderon 08-07-2023 Physician Order [id number]#1.00TIFF [facility] Nurse Consultation Noteon Nurse Consultation Note Reason [...] 2 cap(s), Oral, BID Flonase 0.05 mg/inh [place], 2 spray(s), Nasal, Daily gabapentin 300 mg [...] pneumococcal 23-valent vaccine 04/07/2005 Recorded Normal [facility] Nurse Consultation Noteon Nurse Consultation Note Reason [...] 2 cap(s), Oral, BID Flonase 0.05 mg/inh [place], 2 spray(s), Nasal, Daily gabapentin 300 mg [...] pneumococcal 23-valent vaccine 04/07/2005 Recorded Normal [facility] Family Medicine Office/Clini c Noteon 07-10-2023 Family Medicine [...] with voice recognition artificial intelligence software, specifically [employer], [employer] and or [employer]. Substitutions may have occurred due to the inherent limitations of voice recognition and artificial intelligence software. Patient verbalized understanding and is agreeable to plan and course of treatment. This documentation was completed by voice-activated device and software. Inaccuracies compared to the original dictation of this provider are possible although this document has been overread and corrected. This note has been generated by [employer] and edited by Adarsh Chicas/ Adia Gao, Quality Hog Driver. Follow-up With When Contact Information Guerita Knapp PA-C Only if needed [address] [place] [phone] Additional Instructions: Only if needed Patient Education Budget-Friendly Healthy Eating Problem List/Past Medical History Ongoing Abnormal ECG Allergic rhinitis, seasonal Asthma, moderate persistent B12 nutritional deficiency BMI 34.0-34.9,adult Diastolic dysfunctio (more content not included)... Normal [facility] Comment on above: Result Comment: Elec [...] fruits, and frozen vegetables. ? Avoid buying ifomf-js-clw foods, such as pre-cut fruits and vegetables [...] for buyi (more content not included)... Normal [facility] Ambulatory Visit Summaryon 1 08-27-2022 Ambulatory Visit Summary ANGELA ALONZO :1955 Visit Date:06/26/2023 Ambulatory Visit Instructions Your Diagnosis Perennial allergic rhinitis Your Care Team Attending Physician - R[facility]U [facility] Primary Care Physician - RITU HALL FAAFP, Esperanza Carmichael This Is Your Medications List [facility] Prescription (Handicapped Parking Placard) albuterol (Albuterol (Eqv-ProAir [...] mg Tab) fluticasone nasal (Flonase 0.05 mg/inh [place]) gabapentin (gabapentin 300 mg Cap) hydrOXYzine (hydrOXYzine [...] Follow-Up Appointments Monday 10:40 AM EST Where: [facility] [place] Normal [address] [place], [place] [id number]- \.br\ Medications\.br\ What How Much When Instructions\.br\ [...] Unchanged fluticasone nasal (Flonase 0.05 mg/ inh [place]) 2 Sprays Nasal Inhalation Every day each [...] for choosing us for your care.\.br\ \.br\ [facility] Nurse Consultation Noteon Nurse Consultation Note [...] 2 cap(s), Oral, BID Flonase 0.05 mg/inh [place], 2 spray(s), Nasal, Daily gabapentin 300 mg [...] pneumococcal 23-valent vaccine 04/07/2005 Recorded Normal [facility] Nurse Consultation Noteon Nurse Consultation Note Reason [...] 2 cap(s), Oral, BID Flonase 0.05 mg/inh [place], 2 spray(s), Nasal, Daily gabapentin 300 mg [...] pneumococcal 23-valent vaccine 04/07/2005 Recorded Normal [facility] Nurse Consultation Noteon Nurse Consultation Note Reason [...] 2 cap(s), Oral, BID Flonase 0.05 mg/inh [place], 2 spray(s), Nasal, Daily gabapentin 300 mg [...] pneumococcal 23-valent vaccine 04/07/2005 Recorded Normal [facility] Nurse Consultation Noteon Nurse Consultation Note Reason [...] 2 cap(s), Oral, BID Flonase 0.05 mg/inh [place], 2 spray(s), Nasal, Daily gabapentin 300 mg [...] Recorded pneumococcal 23-valent vaccine 04/07/2005 Recorded Normal [facility] Nurse Consultation Noteon Nurse Consultation Note [...] 2 cap(s), Oral, BID Flonase 0.05 mg/inh [place], 2 spray(s), Nasal, Daily gabapentin 300 mg [...] pneumococcal 23-valent vaccine 04/07/2005 Recorded Normal [facility] Nurse Consultation Noteon Nurse Consultation Note Reason [...] 2 cap(s), Oral, BID Flonase 0.05 mg/inh [place], 2 spray(s), Nasal, Daily gabapentin 300 mg [...] 09/08/2020 Recorded pneumococcal 23-valent vaccine 04/07/2005 Recorded [facility] Consultation Noteon 05-11-20 23 Consultation Note [id number] #1.00TIFF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 Location Guerita Knapp [facility] 01-02-2024 10:23-0400 Body temperature 97.88 [degF] Guerita Knapp [facility] 01-02-2024 10:23-0400 Diastolic blood pressure 76 mm[Hg] Guerita Knapp [facility] 01-02-2024 10:23-0400 Heart rate 71 /min Guerita Knapp [facility] 01-02-2024 10:23-0400 Respiratory rate 18 /min Guerita Knapp [facility] 01-02-2024 10:23-0400 SaO2% (BldA) [Mass fraction] 99 % Guerita Knapp [facility] 01-02-2024 10:23-0400 Systolic blood pressure 128 mm[Hg] Guerita Knapp [facility] 08-16-2023 08:26-0500 Body height 157.5 cm [facility] JUSTINO Work Phone: [facility] 08-16-2023 08:26-0500 Body mass index (BMI) [Ratio] 41.15 kg/m2 [facility] PA Work Phone: [facility] 08-16-2023 08:26-0500 Body temperature 98.29 [degF] [facility] Work Phone: [facility] 08-16-2023 08:26-0500 Body weight 102.06 kg [facility] Work Phone: [facility] 08-14-2023 10:43-0500 Blood Pressure Location Guerita Knapp [facility] 08-14-2023 10:43-0500 Body temperature 98.24 [degF] Guerita Knapp [facility] 08-14-2023 10:43-0500 Diastolic blood pressure 78 mm[Hg] Guerita Knapp [facility] 08-14-2023 10:43-0500 Heart rate 87 /min Guerita Knapp [facility] 08-14-2023 10:43-0500 Respiratory rate 18 /min Guerita Knapp [facility] 08-14-2023 10:43-0500 SaO2% (BldA) [Mass fraction] 98 % Guerita Knapp [facility] 08-14-2023 10:43-0500 Systolic blood pressure 132 mm[Hg] Guerita Knapp [facility] 07-05-2023 12:03-0500 Blood Pressure Location Guerita Knapp [facility] 07-05-2023 12:03-0500 Body temperature 98.06 [degF] Guerita Knapp [facility] 07-05-2023 12:03-0500 Diastolic blood pressure 78 mm[Hg] Guerita Knapp [facility] 07-05-2023 12:03-0500 Heart rate 87 /min Guerita Ra [facility] 07-05-2023 12:03-0500 Respiratory rate 18 /min Guerita Knapp [facility] 07-05-2023 12:03-0500 SaO2% (BldA) [Mass fraction] 95 % Guerita Knapp [facility] 07-05-2023 12:03-0500 Systolic blood pressure 126 mm[Hg] Guerita Knapp [facility] 05-10-2023 07:53-0400 Blood Pressure Location Esperanza [employer] [facility] 05-10-2023 07:53-0400 Diastolic blood pressure 76 mm[Hg] Esperanza [employer] [facility] 05-10-2023 07:53-0400 Heart rate 78 /min Esperanza [employer] [facility] 05-10-2023 07:53-0400 SaO2% (BldA) [Mass fraction] 96 % Esperanza [employer] [facility] 05-10-2023 07:53-0400 Systolic blood pressure 122 mm[Hg] Esperanza [employer] [facility] 09-20-2022 10:52-0400 Blood Pressure Location Guerita Knapp [facility] 09-20-2022 10:52-0400 Diastolic blood pressure 68 mm[Hg] Guerita Larryer [facility] 09-20-2022 10:52-0400 Heart rate 69 /min Guerita Mackzier [facility] 09-20-2022 10:52-0400 Respiratory rate 18 /min Guerita Mackzier [facility] 09-20-2022 10:52-0400 Systolic blood pressure 118 mm[Hg] Guerita Larryer [facility] 07-07-2022 13:55-0500 Diastolic blood pressure 92 mm[Hg] XXXX NONE [facility] 07-07-2022 13:55-0500 Heart rate 76 /min XXXX NONE [facility] 07-07-2022 13:55-0500 Respiratory rate 17 /min XXXX [facility] 07-07-2022 13:55-0500 SaO2% (BldA) [Mass fraction] 97 % [facility] 07-07-2022 13:55-0500 Systolic blood pressure 143 mm[Hg] [facility] 07-07-2022 13:40-0500 Diastolic blood pressure 80 mm[Hg] XXXX [facility] 07-07-2022 13:40-0500 Heart rate 71 /min XXXX NONE [facility] 07-07-2022 13:40-0500 Respiratory rate 19 /min XXXX NONE [facility] 07-07-2022 13:40-0500 SaO2% (BldA) [Mass fraction] 94 % [facility] 07-07-2022 13:40-0500 Systolic blood pressure 130 mm[Hg] XXX[facility] 07-07-2022 13:35-0500 Diastolic blood pressure 76 mm[Hg] XXXX NONE [facility] 07-07-2022 13:35-0500 Heart rate 77 /min XXXX [facility] 07-07-2022 13:35-0500 Respiratory rate 21 /min XXXX NONE [facility] 07-07-2022 13:35-0500 Systolic blood pressure 119 mm[Hg] XXXX NONE [facility] 07-07-2022 13:31-0500 Body temperature 97.52 [degF] XXXX NONE [facility] 07-07-2022 12:59-0500 Respiratory rate 18 /min XXXX NONE [facility] 07-07-2022 12:16-0500 Blood Pressure Location XXXX NONE [facility] 07-07-2022 12:16-0500 Body temperature 98.6 [degF] XXXX NONE [facility] 06-27-2022 14:21-0500 Diastolic blood pressure 74 mm[Hg] Nayan Cherry [facility] 06-27-2022 14:21-0500 Heart rate 75 /min Nayan Cherry [facility] 06-27-2022 14:21-0500 SaO2% (BldA) [Mass fraction] 96 % Nayan Cherry [facility] 06-27-2022 14:21-0500 Systolic blood pressure 116 mm[Hg] Nayan Cherry [facility] 05-10-2022 08:23-0400 Blood Pressure Location Esperanza CHANEY [facility] 05-10-2022 08:23-0400 Body temperature 98.06 [degF] Esperanza CHANEY [facility] 05-10-2022 08:23-0400 Diastolic blood pressure 60 mm[Hg] Esperanza CHANEY [facility] 05-10-2022 08:23-0400 Heart rate 72 /min Esperanza CHANEY [facility] 05-10-2022 08:23-0400 SaO2% (BldA) [Mass fraction] 94 % Esperanza CHANEY [facility] 05-10-2022 08:23-0400 Systolic blood pressure 112 mm[Hg] Esperanza CHANEY [facility] 01-18-2022 11:02-0400 Blood Pressure Location Audelia VEGA [facility] 01-18-2022 11:02-0400 Diastolic blood pressure 68 mm[Hg] Audelia VEGA [facility] 01-18-2022 11:02-0400 Heart rate 78 /min Audelia VEGA [facility] 01-18-2022 11:02-0400 Respiratory rate 18 /min Audelia VEGA [facility] 01-18-2022 11:02-0400 SaO2% (BldA) [Mass fraction] 96 % Audelia VEGA [facility] 01-18-2022 11:02-0400 Systolic blood pressure 104 mm[Hg] Audelia VEGA [facility] 01-03-2022 15:30-0400 Body temperature 96.98 [degF] Joan Warner [facility] 01-03-2022 15:30-0400 Diastolic blood pressure 68 mm[Hg] Joan Warner [facility] 01-03-2022 15:30-0400 Heart rate 65 /min Joan Warner [facility] 01-03-2022 15:30-0400 Mean blood pressure 80 mm[Hg] Joan Warner [facility] 01-03-2022 15:30-0400 SaO2% (BldA) [Mass fraction] 98 % Joan Stephanie [facility] 01-03-2022 15:30-0400 Systolic blood pressure 104 mm[Hg] Joan Stephanie [facility] 01-03-2022 14:30-0400 Diastolic blood pressure 60 mm[Hg] Joan Stephanie [facility] 01-03-2022 14:30-0400 Heart rate 64 /min Joan Stephanie [facility] 01-03-2022 14:30-0400 Mean blood pressure 73 mm[Hg] Joan Stephanie [facility] 01-03-2022 14:30-0400 Systolic blood pressure 100 mm[Hg] Joan Stephanie [facility] 01-03-2022 13:30-0400 Diastolic blood pressure 68 mm[Hg] Joan Stephanie [facility] 01-03-2022 13:30-0400 Heart rate 60 /min Joan Stephanie [facility] 01-03-2022 13:30-0400 Mean blood pressure 82 mm[Hg] Joan Stephanie [facility] 01-03-2022 13:30-0400 SaO2% (BldA) [Mass fraction] 98 % Joan Stephanie [facility] 01-03-2022 13:30-0400 Systolic blood pressure 110 mm[Hg] Joan Warner [facility] 01-03-2022 12:35-0400 Respiratory rate 16 /min Joan Stephanie [facility] 01-03-2022 11:35-0400 Body temperature 97.88 [degF] Joan Warner [facility] 01-03-2022 11:35-0400 Respiratory rate 14 /min Joan Warner [facility] 01-03-2022 11:25-0400 Blood Pressure Location Joan Warner [facility] 01-03-2022 11:25-0400 Respiratory rate 16 /min Joan Warner [facility] 01-03-2022 11:20-0400 Respiratory rate 15 /min Joan Wraner [facility] 01-03-2022 11:10-0400 Respiratory rate 24 /min Joan Warner [facility] 01-03-2022 10:43-0400 Body temperature 97.16 [degF] Joan Warner [facility] 01-03-2022 10:40-0400 Respiratory rate 7 /min Joan Warner [facility] 01-03-2022 07:19-0400 Mean blood pressure 102 mm[Hg] Joan Warner [facility] 01-03-2022 07:18-0400 Body temperature 98.06 [degF] Joan Warner [facility] 01-03-2022 07:18-0400 Mean blood pressure 91 mm[Hg] Joan Warner [facility] 01-03-2022 07:18-0400 Heart rate 72 /min Joan Warner [facility] 12-17-2021 09:00-0400 Blood Pressure Location Marlon Finney [facility] 12-17-2021 09:00-0400 Diastolic blood pressure 70 mm[Hg] Marlon Finney [facility] 12-17-2021 09:00-0400 Respiratory rate 20 /min Marlon Finney [facility] 12-17-2021 09:00-0400 Systolic blood pressure 114 mm[Hg] Marlon Geralderson [facility] 12-13-2021 09:26-0400 Blood Pressure Location Audelialuther VEGA [facility] 12-13-2021 09:26-0400 Diastolic blood pressure 57 mm[Hg] Audelialuther MARTINOG [facility] 12-13-2021 09:26-0400 Heart rate 67 /min Audelialuther VEGA [facility] 12-13-2021 09:26-0400 Respiratory rate 18 /min Audelialuther VEGA [facility] 12-13-2021 09:26-0400 SaO2% (BldA) [Mass fraction] 100 % Audelialuther VEGA [facility] 12-13-2021 09:26-0400 Systolic blood pressure 106 mm[Hg] Audelia VEGA [facility] 11-19-2021 15:22-0400 Blood Pressure Location Marlon Finney [facility] 11-19-2021 15:22-0400 Diastolic blood pressure 68 mm[Hg] Marlon Christofferson [facility] 11-19-2021 15:22-0400 Heart rate 72 /min Marlon Christofferson [facility] 11-19-2021 15:22-0400 Respiratory rate 18 /min Marlon Christofferson [facility] 11-19-2021 15:22-0400 SaO2% (BldA) [Mass fraction] 97 % Marlon Christofferson [facility] 11-19-2021 15:22-0400 Systolic blood pressure 115 mm[Hg] Marlon Christofferson [facility] 11-12-2021 14:29-0400 Blood Pressure Location Joan Warner [facility] 11-12-2021 14:29-0400 Body temperature 98.06 [degF] Joan Warner [facility] 11-12-2021 14:29-0400 BP/Pulse Patient Position Joan Warner [facility] 11-12-2021 14:29-0400 Diastolic blood pressure 70 mm[Hg] Joan Warner [facility] 11-12-2021 14:29-0400 Heart rate 64 /min Joan Stephanie [facility] 11-12-2021 14:29-0400 Mean blood pressure 83 mm[Hg] Joan Stephanie [facility] 11-12-2021 14:29-0400 SaO2% (BldA) [Mass fraction] 96 % Joan Warner [facility] 11-12-2021 14:29-0400 Systolic blood pressure 108 mm[Hg] Joan Stephanie [facility] 11-12-2021 14:28-0400 Blood Pressure Location Joan Stephanie [facility] 11-12-2021 14:28-0400 BP/Pulse Patient Position Joan Stephanie [facility] 11-12-2021 14:28-0400 Diastolic blood pressure 72 mm[Hg] Joan Stephanie [facility] 11-12-2021 14:28-0400 Heart rate 63 /min Joan Stephanie [facility] 11-12-2021 14:28-0400 Mean blood pressure 87 mm[Hg] Joan Stephanie [facility] 05-06-2022 14:28-0400 Systolic blood pressure 117 mm[Hg] Joan Warner [facility] 11-12-2021 14:28-0400 Respiratory rate 16 /min Joan Warner [facility] 10-25-2021 12:50-0400 Diastolic blood pressure 78 mm[Hg] Esperanza BROWN [facility] [place] 10-25-2021 12:50-0400 Mean blood pressure 89 mm[Hg] Esperanza BROWN [facility] [place] 10-25-2021 12:50-0400 Systolic blood pressure 112 mm[Hg] Esperanza BROWN [facility] [place] 10-25-2021 12:40-0400 Blood Pressure Location Esperanza BROWN [facility] [place] 10-25-2021 12:40-0400 Body temperature 97.16 [degF] Esperanza BROWN [facility] [place] 10-25-2021 12:40-0400 Diastolic blood pressure 88 mm[Hg] Esperanza BROWN [facility] [place] 10-25-2021 12:40-0400 Heart rate 65 /min Esperanza BROWN [facility] [place] 10-25-2021 12:40-0400 Respiratory rate 16 /min Esperanza BROWN [facility] [place] 10-25-2021 12:40-0400 SaO2% (BldA) [Mass fraction] 93 % [facility]21 12:40-0400 Systolic blood pressure 126 mm[Hg] [facility] 12-28-2019 15:04-0400 BP Diastolic 73 mm[Hg] [facility] 12-28-2019 15:04-0400 BP Systolic 123 mm[Hg] [facility] 12-28-2019 15:04-0400 Pulse (Heart Rate) 69 /min [facility] 12-28-2019 15:04-0400 Pulse Oximetry 98 % [facility] 12-28-2019 15:04-0400 Respiratory Rate 14 /min [facility] 12-28-2019 12:59-0400 BMI (Body Mass Index) 37.45 kg/m2 [facility] 12-28-2019 12:59-0400 Body Temperature 98.71 [degF] [facility] 12-28-2019 12:59-0400 Body weight 105.23 kg [facility] 12-28-2019 12:59-0400 Height 167.6 cm [facility] Functional Status Date Assessment Result Facility 01-02-2024 Functional Status N/A [facility] 10-30-2023 Functional Status N/A [facility] 08-14-2023 Functional Status N/A [facility] 07-05-2023 Functional Status N/A [facility] 05-10-2023 Functional Status N/A [facility] 09-20-2022 Functional Status N/A [facility] 07-07-2022 Functional Status N/A [facility] 06-27-2022 Functional Status N/A [facility] [place] 05-10-2022 Functional Status N/A [facility] Family [facility] [place] 01-18-2022 Functional Status N/A [facility] Clinical Notes 12-10-2019 to 01-02-2024 JUSTINO Persaud [...] frozen fruits, and frozen vegetables. Avoid buying erztm-za-ueu foods, such as pre-cut fruits and vegetables and pre-made salads. If possible, shop around to discover where you can find the best prices. Consider other retailers such as dollar stores, larger wholesale stores, local fruit and vegetable [employer], and [employer] markets. Do not shop when you are [...] provider. Document Revised: 04/08/2021 Document Reviewed: 04/08/2021 [employer] Patient Education 2022 [employer]. Follow Up Care 01/01/2024 08:21:19 With:Guerita Knapp PA-C Address: [address] [place] [phone] When:Within 6 Month(s) Comments:For check up [facility] [place] 08-16-2023 History of Present illness Narrative GENERAL [...] 01/03/2022 TKA TOTAL KNEE ARTHROPLASTY Right 01/03/2022 MTP SOCIAL HISTORY: Social History Occupational History Not [...] Inhalation, q6hr Wheezing, 100 EA, Refill(s) 2, [facility] [id number], 165, cm, 07/07/22 9:42:00 EST, Height/Length Dosing, [...] joint her left knee is arthritic with vzdy-il-hveh changes to the medial compartment as well [...] organs. JUSTINO Persaud documented in this encounter [facility] 08-16-2023 Instructions JUSTINO Persaud - 08/16/2023 8:15 [...] body and organs. 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 ?Change your dressing as told by your [...] quitting, ask your health care provider. Take oajf-epq-kezdueq and prescription medicines only as told by your health care provider. Your medicines may cause constipation. To prevent or treat constipation, you may need to: ?Drink enough fluid to keep your urine pale yellow. ?Take pbqw-imr-eyocolz or prescription medicines. ?Eat foods that are [...] provider. Document Revised: 10/30/2020 Document Reviewed: 10/30/2020 [employer] Patient Education 2022 [employer]. Follow Up Care 08/07/2023 16:27:59 With:Guerita Knapp PA-C Address: [address] [place] [phone] When: only if needed Comments:Only if needed [facility] [place] 07-05-2023 Hospital Discharge instructions Patient Education 07/05/2023 [...] frozen fruits, and frozen vegetables. Avoid buying pyxps-lh-fnh foods, such as pre-cut fruits and vegetables and pre-made salads. If possible, shop around to discover where you can find the best prices. Consider other retailers such as [employer] stores, larger wholesale stores, local fruit and vegetable [employer], and [employer] markets. Do not shop when you are [...] provider. Document Revised: 04/08/2021 Document Reviewed: 04/08/2021 [employer] Patient Education 2022 [employer]. Follow Up Care 07/04/2023 08:35:54 With:Guerita Knapp PA-C Address: [address] [place] [phone] When: only if needed Comments:Only if needed [facility] [place] 05-10-2023 Hospital Discharge instructions Patient Education 05/10/2023 [...] numbers. This can be done either in [place] ([place] or metric measurements. Note that charts and online BMI calculators are available to help you find your BMI quickly and easily without having to do these calculations yourself. To calculate your BMI in [place] ([place] measurements: 1.Measure your weight in pounds [...] Centers for Disease Control and Prevention: www.cdc.gov [place] Heart Association: www.heart.org National Heart, Lung, and Blood [place]: www.nhlbi.nih.gov Summary Body mass index (BMI) is a number that is calculated from a person's weight and height. BMI may help estimate how much of a person's weight is composed of fat. BMI can help identify those who may be at higher risk for certain medical problems. BMI can be measured using Israeli measurements or metric measurements. BMI charts are used to identify whether you are underweight, normal weight, overweight, or obese. This information is not intended to replace advice given to you by your health care provider. Make sure you discuss any questions you have with your health care provider. Document Revised: 03/18/2020 Document Reviewed: 01/24/2020 [employer] Patient Education 2022 [employer]. 05/10/2023 09:06:12 Dyslipidemia Dyslipidemia Dyslipidemia is an [...] quitting, ask your health care provider. Take ctop-ywu-wguhqfj and prescription medicines only as told by [...] provider. Document Revised: 08/30/2021 Document Reviewed: 08/30/2021 [employer] Patient Education 2022 [employer]. 05/10/2023 09:06:07 Insomnia Insomnia Insomnia is a [...] go back to bed. General instructions Take vako-qzw-kdlvzrm and prescription medicines only as told by [...] the National Suicide Prevention Lifeline at or 585. This is open 24 hours a day. Text the Crisis Text Line at 743797. Summary Insomnia is a sleep disorder that [...] provider. Document Revised: 06/06/2022 Document Reviewed: 06/06/2022 [employer] Patient Education 2022 [employer]. 05/10/2023 09:06:04 Managing Depression, Adult Managing Depression, [...] pray, or go to a place of synagogue. Do some deep breathing. To do this, [...] sugars, or salt (sodium). General instructions Take eblp-xvy-uixpgng and prescription medicines only as told by [...] (ADAA): www.adaa.org Mental Health Su: www.mentalhealthamerica.net National [place] on Mental Illness: www.tyrone.org Contact a health [...] department or: Call your local emergency services (368 in the U.S.). Call a suicide crisis helpline, such as the National Suicide Prevention Lifeline at or 697 in the U.S. This is open 24 hours a day in the U.S. Text the Crisis Text Line at 473085 (in the U.S.). Summary If you are [...] provider. Document Revised: 01/19/2022 Document Reviewed: 05/06/2020 [employer] Patient Education 2022 [employer]. 05/10/2023 09:05:58 Asthma, Adult Asthma, Adult Asthma [...] breathing (shortness of breath). Excessive nighttime or registry nurse coughing. Chest tightness. Tiredness (fatigue) with minimal [...] condition. Follow these instructions at home: Take qqmu-nuz-ktimkkj and prescription medicines only as told by [...] provider. Document Revised: 04/13/2022 Document Reviewed: 04/04/2022 [employer] Patient Education 2022 [employer]. [facility] [place] 07-07-2022 Hospital Discharge instructions [...] 03/22/2005 Document Revised: 10/11/2018 Document Reviewed: 10/11/2018 [employer] Patient Education 2020 [employer]. 07/07/2022 12:57:04 Colonoscopy, Adult, Care After Colonoscopy, [...] a slower pace than normal. ?Eat soft, zbcz-eq-mplmjo foods. Take elyq-vgu-aynzpkt or prescription medicines only as told by [...] 02/07/2005 Document Revised: 04/18/2018 Document Reviewed: 09/06/2016 [employer] Patient Education 2020 [employer] Follow Up Care 06/27/2022 14:47:12 With:Nayan Cherry Address:Unknown When: Unknown [facility] 07-07-2022 Evaluation + Plan note Extrac katerine from: Title:Pre-anesthesia - Endoscopy Author:Best Aguilar Jr., DO Date:07/07/22 Plan [place] Society of Anesthesiologists (ASA) physical status classification: Class II. Anesthetic Preoperative Plan Anesthesia: General. . Anesthetic plan, risks, benefits, and alternatives discussed with the patient and/or family. Patient verbalized understanding. Future Appointments Appointment Date:05/10/2023 08:00:00 AM Scheduled Provider: Location:[facility] [place] Appointment Type:FM Medicare Wellness Subsequent Future Scheduled Tests Laboratory* BUN 01/04/22 * Creatinine 01/04/22 * Electrolyte Panel 01/04/22 * CBC w/ Auto Diff 01/04/22 Radiology* CV Cardiovascular 12/13/21 [facility]12-19-2022 Hospital Discharge instructions Patient Education 06/27/2022 14:28:05 [...] ?Hypothyroidism. ?Polycystic ovarian syndrome (PCOS). ?Binge-eating disorder. ?Casey syndrome. Taking certain medicines, such as steroids, [...] food choices, such as grocery stores and [employer]. What are the signs or symptoms? The [...] and how much exercise you get. Take qzhm-beq-jmtmdmh and prescription medicines only as told by [...] 08/03/2005 Document Revised: 02/28/2019 Document Reviewed: 02/28/2019 [employer] Patient Education 2019 [employer]. [facility] [place] 11-01-2022 Hospital Discharge instructions Patient Education 05/10/2022 [...] your health care provider or diet and telecommunications specialist (dietitian) before starting any calcium supplements. [...] mg per 8 oz serving. Grains Fortified olldu-et-htz cereals, 100 1,000 mg per 8 oz serving. Fortified frozen waffles, 200 mg in two waffles. Meats and other proteins Sardines, canned with bones, 325 mg per 3 oz serving. [place], canned with bones, 180 mg per 3 oz serving. Canned shrimp, 125 mg per 3 oz serving. Baked beans, 160 mg per 4 oz serving. Dairy Yogurt, plain, low-fat, 310 mg per 6 oz serving. Milk, 300 mg per 8 oz serving. Ghanaian cheese, 195 mg per 1 oz serving. [...] 02/07/2005 Document Revised: 06/19/2018 Document Reviewed: 06/19/2018 [employer] Patient Education 2020 [employer]. 05/10/2022 08:50:00 Budget-Friendly Healthy Eating Budget-Friendly Healthy [...] frozen fruits, and frozen vegetables. Avoid buying yrplj-el-scu foods, such as pre-cut fruits and vegetables and pre-made salads. If possible, shop around to discover where you can find the best prices. Consider other retailers such as dollar stores, larger wholesale stores, local fruit and vegetable stands, and [employer] markets. Do not shop when you are [...] 02/27/2015 Document Revised: 06/27/2018 Document Reviewed: 06/27/2018 [employer] Patient Education 2020 [employer]. 05/10/2022 08:49:58 BMI for Adults BMI for [...] height. This can be done either in [place] ([place] or metric measurements. Note that charts are available to help you find your BMI quickly and easily without having to do these calculations yourself. To calculate your BMI in [place] ([place] measurements, your health care provider will: [...] medical problems. BMI can be measured using Israeli measurements or metric measurements. To interpret your [...] 03/07/2005 Document Revised: 06/08/2018 Document Reviewed: 05/09/2018 [employer] Patient Education 2020 [employer]. [facility] 08-15-2022 History of Present illness Narrative* Otis TAYLOR Edward - 02/21/2022 10:30 AM EDT Images from the original note were not included. 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 - MET LTG Goal 1 Status:: Met terminal worker goal 2: Pt to increase tandem stance balance to 10 s 2:3 trials for improved stability and safe amb. - MET LTG Goal 2 Status:: Met terminal worker goal 3: Pt to be able to amb on unlevel surface without an AD and no deviations for 150ft. Post Treatment Pain: 0/10 Time In: 1035 Time Out : 1110 Timed Code Treatment Minutes: 35 Minutes Total Treatment Time: 35 Minutes Otis Edward PTA Date: 02/21/2022 [facility] [employer] Phone: 1(289) 399-417008-12-2022 History of Present illness Narrative* Otis Edward PTA - 02/18/2022 10:30 AM EDT Images from the original note were not included. [facility] Outpatient Physical Therapy Daily Note Date: 02/18/2022 [...] - MET STG Goal 3 Status:: Met Care Home Goals Time Frame for terminal worker goals : 12 terminal worker goal 1: Pt to increase R knee flexion MMT to 4+/5 to help with amb and stairs. - MET LTG Goal 1 Status:: Met senior living goal 2: Pt to increase tandem stance balance to 10 s 2:3 trials for improved stability and safe amb. senior living goal 3: Pt to be able to amb on unlevel surface without an AD and no deviations for 150ft. Post Treatment Pain: 0/10 Time In: 1035 Time Out : 1115 Timed Code Treatment Minutes: 40 Minutes Total Treatment Time: 40 Minutes Otis Edward PTA Date: 02/18/2022 documented in this encounterB[facility] [employer] Phone: 1(306) 615-636308-08-2022 History of Present illness Narrative* Marcella Dover, CUSTOMER LIAISON - 02/14/2022 9:45 AM EDT Images from the original note were not included. 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 senior living goal 3: Pt to be able to amb on unlevel surface without an AD and no deviations for 150ft. 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 senior living goal 2: Pt to increase tandem stance balance to 10 s 2:3 trials for improved stability and safe amb. senior living goal 3: Pt to be able to amb on unlevel surface without an AD and no deviations for 150ft. Post Treatment Pain: 310 Time In: 1302 Time Out: 1342 Timed Code Treatment Minutes: 40 Minutes Total Treatment Time: 40 Minutes Georgia Pham, SPT /Directly Supervised by Kyara Vlilegas, PT Date: 02/11/2022 documented in this encounterBON [employer] Phone: 1(900) 931-286708-01-2022 History of Present illness Narrative* Otis Edward, CUSTOMER LIAISON - 02/07/2022 10:30 AM EDT Images from the original note were not included. 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 senior living goal 3: Pt to be able to amb on unlevel surface without an AD and no deviations for 150ft. Post Treatment Pain: 09/16 Time In: 1033 Time Out : 1115 Timed Code Treatment Minutes: 42 Minutes Total Treatment Time: 42 Minutes Otis Edward PTA Date: 02/07/2022 documented in this encounterBON [employer] Phone: 1(794) 553-233607-25-2022 History of Present illness Narrative* Candida S Aime - 01/31/2022 1:00 PM EDT Images from the original note were not included. 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 senior living goal 3: Pt to be able to amb on unlevel surface without an AD and no deviations for 150ft. Post Treatment Pain: 09/16 Time In:1255 Time Out : 1340 Timed Code Treatment Minutes: 45 Minutes Minutes Candida Salomon ,TAYLOR Date: 01/31/2022 documented in this encounterBON [employer] Phone: 1(211) 713-235606-27-2022 Evaluation + Plan noteExtracted from: Title:Op Note skeleton Author:Joan Warner DO Date:01/03/22 Impression and Plan Diagnosis Pre-op dx-rt knee oa/pain Post-op dx-same Procedure-rt tka Anesthesia-gen block EBL-0 TT-see nn To Recovery Room in stable and satisfactory condition.. Extracted from: Title:Anesthesia Pre-Op GA/block Author:Wali Garg Date:01/03/22 Plan [place] Society of Anesthesiologists (ASA) physical status classification: [...] Appointments Appointment Date:01/17/2022 11:40:00 AM Scheduled Provider: Location:[facility] Appointment Type: Nurse Visit Appointment Date:01/18/2022 11:00:00 AM Scheduled Provider:Audelia VEGA CNP Location:FT[facility]Cardiology Clinic Appointment Type:Cardiology Follow Up (FT) Future Scheduled Tests Laboratory* BUN 01/04/22 * Creatinine 01/04/22 * Electrolyte Panel 01/04/22 * CBC w/ Auto Diff 01/04/22 Radiology* CV Cardiovascular 12/13/21 [facility]06-10-2022 Hospital Discharge instructions Follow Up Care 12/17/2021 10:52:35 With:Sharmin HALL, Marlon Negrete Address: [address] [place] [phone]- When:6 months [facility]06-10-2022 Hospital Discharge instructions Patient Education 12/17/2021 10:52:21 CV - Cardiovascular Discharge Instructions (CUSTOM) [place], [place] CARDIOVASCULAR DISCHARGE INSTRUCTIONS Diet: Resume pre-procedure [...] you are interested in smoking cessation, contact [facility] at [phone], ext. [phone]. In the event you are unable to reach your physician, please call [facility] at [phone] and the trenching machine operator will assist you. Seek Immediate Medical Care for: Bleeding: Apply continuous pressure to the site and Call 911. Should the arm or leg become cold, numb, blue or white call your physician immediately. Signs of infection are redness, warmth, swelling, increased tenderness, colored drainage, fever or chills Chest pain Follow Up Care 12/13/2021 12:37:10 With:Marlon Finney Address: [address] [place] [address] [place] [phone] Business (1) When:01/18/2022 11:00:00 Comments:Keep scheduled appointment [facility]06-06-2022 Hospital Discharge instructions Patient Education 12/13/2021 09:45:12 [...] including vitamins, herbs, eye drops, creams, and lzgm-cqm-ckunpyt medicines. Any problems you or family members [...] 12/31/2003 Document Revised: 06/08/2018 Document Reviewed: 04/07/2017 [employer] Patient Education 2020 [employer]. Follow Up Care 11/24/2021 09:56:15 With:Sharmin HALL, Marlon Negrete Address: [address] [place] [phone]- When: Unknown [facility]06-02-2022 Evaluation + Plan note Future Appointments Appointment Date:12/17/2021 10:00:00 AM Scheduled Provider: [facility] Type:CV Heart Cath (FT) Appointment Date:12/27/2021 02:00:00 PM Scheduled Provider: Location:[facility] Appointment Type:FM Nurse Visit Appointment Date:01/03/2022 10:00:00 AM Scheduled Provider: Location[facility] Appointment Type:Surgery FT Future Scheduled Tests Radiology* CV Cardiovascular 12/13/21 * CV Cardiovascular 12/17/21 [facility]04-18-2022 Hospital Discharge instructions Patient Education 10/25/2021 13:36:54 [...] check for related conditions, such as: ?Asthma. ?[place] eye. ?Ear infection. ?Upper respiratory infection. Tests [...] before sitting on furniture or bedding. Take xyre-jvb-nvvuibe and prescription medicines only as told by [...] 03/21/2002 Document Revised: 06/08/2018 Document Reviewed: 08/03/2017 [employer] Patient Education 2020 [employer]. Follow Up Care 10/25/2021 10:35:28 With:RITU HALL FAAFP, LALA Rob Address: When: Unknown Comments:return as otherwise scheduled [facility] [place] 06-02-2020 Evaluation + Plan note Future Appointments Appointment Date:12/03/2021 03:00:00 PM Scheduled Provider: Location:FT.CARDIO Appointment Type:CV Echo () Appointment Date:12/09/2021 08:00:00 AM Scheduled Provider: Location:FT.[facility] Appointment Type:NM Myocard Spect Multi Rest/Stress-Res Appointment Date:12/09/2021 09:00:00 AM Scheduled Provider: Location:FT[facility] Appointment Type:NM Myocard Spect Multi Rest/Stress - R Appointment Date:12/09/2021 09:30:00 AM Scheduled Provider: [facility] Type:NM Myocard Spect Multi Rest/Stress-Str Appointment Date:12/09/2021 10:30:00 AM Scheduled Provider: [facility] Appointment Type:NM Myocar Spect Multi Rest/Stress - St Appointment Date:12/13/2021 09:30:00 AM Scheduled Provider:Audelia VEGA CNP [facility] Type:Cardiology Follow Up (FT) Appointment Date:12/13/2021 02:00:00 PM Scheduled Provider: Location:[facility] Appointment Type:FM Nurse Visit Appointment Date:01/03/2022 10:00:00 AM Scheduled Provider: Location:[facility] Appointment Type:Surgery FT Future Scheduled Tests Radiology* NM Myocardial Spect Rest/Stress 1 Day 12/09/21 * Echo Transthoracic Complete 12/03/21 [facility] evaluation + Plan note Future Appointments Appointment Date:10/18/2021 09:40:00 AM Scheduled Provider: Location:[facility] Appointment Type:FM Nurse Visit [facility] evaluation + Plan note Future Appointments Appointment Date:11/01/2021 09:40:00 AM Scheduled Provider: Location:[facility] Appointment Type:FM Nurse Visit [facility] evaluation + Plan note Future Appointments Appointment Date:11/01/2021 09:40:00 AM [facility]uled [facility] Nurse Visit Appointment Date:11/10/2021 08:30:00 AM Scheduled Provider: Location:[facility] Appointment Type:Surgical PAT FT Appointment Date:11/29/2021 10:50:00 AM Scheduled Provider: Location:[facility] Appointment Type:Surgery FT [facility] evaluation + Plan note Future Appointments Appointment Date:11/10/2021 08:30:00 AM Scheduled Provider: Location:[facility] Appointment Type:Surgical PAT FT Appointment Date:11/15/2021 09:40:00 AM Scheduled [facility] Type:FM Nurse Visit Appointment Date:11/26/2021 09:40:00 AM Scheduled [facility] Type:FM Nurse Visit Appointment Date:11/29/2021 10:50:00 AM Scheduled Provider: Location:[facility] Appointment Type:Surgery [facility] Evaluation + Plan note Future Appointments Appointment Date:11/15/2021 09:40:00 AM Scheduled [facility] App[facility] Type:FM Nurse Visit Appointment Date:11/26/2021 09:40:00 AM Scheduled [facility] Type:FM Nurse Visit Appointment Date:11/29/2021 10:00:00 AM Scheduled Provider: [facility] Appointments Appointment Date:11/26/2021 09:40:00 AM Scheduled [facility] App[facility] Type:FM Nurse Visit Appointment Date:11/29/2021 10:00:00 AM Scheduled Provider: Location:[facility] Appointment Type:Surgery [facility] Evaluation + Plan note Future Appointments Appointment Date:11/26/2021 09:40:00 AM Scheduled [facility] Type:FM Nurse Visit Appointment Date:11/29/2021 10:00:00 AM Scheduled Provider: Location:[facility] Appointment Type:Surgery FT Future Scheduled Tests Radiology* NM Myocardial Spect Rest/Stress 1 Day 11/19/21 * Echo Transthoracic Complete [facility]19[facility]21 [facility] Future Appointments Appointment Date:12/13/2021 09:30:00 AM Scheduled Provider:Audelia VEGA CNP [facility] Type:Cardiology Follow Up (FT) Appointment Date:12/13/2021 02:00:00 PM Scheduled [facility] Type:FM Nurse Visit Appointment Date:01/03/2022 10:00:00 AM Scheduled Provider: Location:[facility] Appointment Type:Surgery FT [facility] Future Appointments Appointment Date:12/27/2021 02:00:00 PM Scheduled Provider: Location:[facility] Appointment Type:FM Nurse Visit Appointment Date:01/03/2022 10:00:00 AM Scheduled Provider: Location:[facility] Appointment Type:Surgery FT Appointment Date:01/18/2022 11:00:00 AM Scheduled Provider:Audelia VEGA CNP [facility] Type:Cardiology Follow Up (FT) Future Scheduled Tests Radiology* CV Cardiovascular 12/13/21 [facility] Future Appointments Appointment Date:01/03/2022 10:00:00 AM Scheduled Provider: Location:[facility] Appointment Type:Surgery FT Appointment Date:01/17/2022 11:40:00 AM Scheduled Provider: Location:[facility] Appointment Type:FM Nurse Visit Appointment Date:01/18/2022 11:00:00 AM Scheduled Provider:Audelia VEGA CNP [facility] Type:Cardiology Follow Up (FT) Future Scheduled Tests Radiology* CV Cardiovascular 12/13/21 [facility] [place] Evaluation + Plan note Future Appointments Appointment Date:01/31/2022 11:40:00 AM Scheduled Provider: Location:[facility] Appointment Type:FM Nurse Visit Appointment Date:07/21/2022 01:15:00 PM Scheduled Provider:Marlon Finney MD [facility] Type:Cardiology Follow Up (FT) Future Scheduled Tests Laboratory* BUN 01/04/22 * Creatinine 01/04/22 * Electrolyte Panel 01/04/22 * CBC w/ Auto Diff 01/04/22 Radiology* CV Cardiovascular 12/13/21 [facility] Future Appointments Appointment Date:02/28/2022 10:20:00 AM Scheduled Provider: Location:[facility] Appointment Type:FM Nurse Visit Appointment Date:07/21/2022 01:15:00 PM Scheduled Provider:Marlon Finney MD [facility] Type:Cardiology Follow Up (FT) Future Scheduled Tests Laboratory* BUN 01/04/22 * Creatinine 01/04/22 * Electrolyte Panel 01/04/22 * CBC w/ Auto Diff 01/04/22 Radiology* CV Cardiovascular 12/13/21 [facility] evaluation + Plan note Future Appointments Appointment Date:03/15/2022 10:00:00 AM Scheduled Provider: Location:[facility] Appointment Type: Nurse Visit Appointment Date:07/21/2022 01:15:00 PM Scheduled Provider:Marlon Finney MD [facility] Type:Cardiology Follow Up (FT) Future Scheduled Tests Laboratory* BUN 01/04/22 * Creatinine 01/04/22 * Electrolyte Panel 01/04/22 * CBC w/ Auto Diff 01/04/22 Radiology* CV Cardiovascular 12/13/21 [facility] evaluation + Plan note Future Appointments Appointment Date:03/28/2022 10:20:00 AM Scheduled Provider: Location:[facility] Appointment Type: Nurse Visit Appointment Date:07/21/2022 01:15:00 PM Scheduled Provider:Marlon Finney MD [facility] Type:Cardiology Follow Up (FT) Future Scheduled Tests Laboratory* BUN 01/04/22 * Creatinine 01/04/22 * Electrolyte Panel 01/04/22 * CBC w/ Auto Diff 01/04/22 Radiology* CV Cardiovascular 12/13/21 [facility] evaluation + Plan note Future Appointments Appointment Date:04/11/2022 10:20:00 AM Scheduled Provider: Location:[facility] Appointment Type: Nurse Visit Appointment Date:07/21/2022 01:15:00 PM Scheduled Provider:Marlon Finney MD [facility] Type:Cardiology Follow Up (FT) Future Scheduled Tests Laboratory* BUN 01/04/22 * Creatinine 01/04/22 * Electrolyte Panel 01/04/22 * CBC w/ Auto Diff 01/04/22 Radiology* CV Cardiovascular 12/13/21 [facility] Evaluation + Plan note Future Appointments Appointment Date:04/25/2022 10:20:00 AM Scheduled Provider: [facility] Type: Nurse Visit Appointment Date:07/21/2022 01:15:00 PM Scheduled Provider:Marlon Finney MD [facility] Type:Cardiology Follow Up (FT) Future Scheduled Tests Laboratory* BUN 01/04/22 * Creatinine 01/04/22 * Electrolyte Panel 01/04/22 * CBC w/ Auto Diff 01/04/22 Radiology* CV Cardiovascular 12/13/21 [facility] Evaluation + Plan note Future Appointments Appointment Date:05/10/2022 08:00:00 AM Scheduled Provider: [facility] Appoint[facility] Type: Medicare Wellness Subsequent Appointment Date:05/23/2022 10:00:00 AM Scheduled Provider: Location:[facility] Appointment Type: Nurse Visit Appointment Date:07/21/2022 01:15:00 PM Scheduled Provider:Marlon Finney MD [facility] Type:Cardiology Follow Up (FT) Future Scheduled Tests Laboratory* BUN 01/04/22 * Creatinine 01/04/22 * Electrolyte Panel 01/04/22 * CBC w/ Auto Diff 01/04/22 Radiology* CV Cardiovascular 12/13/21 [facility] Evaluation + Plan note Future Appointments Appointment Date:05/23/2022 10:00:00 AM Scheduled Provider: [facility] App[facility] Type: Nurse Visit Appointment Date:07/21/2022 01:15:00 PM Scheduled Provider:Marlon Finney MD [facility] Type:Cardiology Follow Up (FT) Appointment Date:05/10/2023 08:00:00 AM Scheduled Provider: Location:[facility] Appointment Type: Medicare Wellness Subsequent Future Scheduled Tests Laboratory* BUN 01/04/22 * Creatinine 01/04/22 * Electrolyte Panel 01/04/22 * CBC w/ Auto Diff 01/04/22 Radiology* CV Cardiovascular 12/13/21 [facility] Evaluation + Plan note Future Appointments Appointment Date:06/06/2022 10:40:00 AM Scheduled Provider: [facility] Appointment Type:FM Nurse Visit Appointment Date:07/21/2022 01:15:00 PM Scheduled Provider:Marlon Finney MD [facility] Type:Cardiology Follow Up (FT) Appointment Date:05/10/2023 08:00:00 AM Scheduled Provider: [facility] Appoint[facility] Type:FM Medicare Wellness Subsequent Future Scheduled Tests Laboratory* BUN 01/04/22 * Creatinine 01/04/22 * Electrolyte Panel 01/04/22 * CBC w/ Auto Diff 01/04/22 Radiology* CV Cardiovascular 12/13/21 [facility] Evaluation + Plan note Future Appointments Appointment Date:06/27/2022 02:20:00 PM Scheduled Provider:Nayan Cherry MD Location:[facility] Appointment Type:[place] [id number] Appointment Date:07/05/2022 10:40:00 AM Scheduled Provider: Location:[facility] Appointment Type: Nurse Visit Appointment Date:05/10/2023 08:00:00 AM Scheduled Provider: [facility] Appointment Type: Medicare Wellness Subsequent Future Scheduled Tests Laboratory* BUN 01/04/22 * Creatinine 01/04/22 * Electrolyte Panel 01/04/22 * CBC w/ Auto Diff 01/04/22 Radiology* CV Cardiovascular 12/13/21 [facility] Evaluation + Plan note Future Appointments Appointment Date:07/05/2022 10:40:00 AM Scheduled Provider: [facility] Appointment Type: Nurse Visit Appointment Date:07/07/2022 01:00:00 PM Scheduled Provider: Location:[facility] Appointment Type:Surgery FT Appointment Date:05/10/2023 08:00:00 AM Scheduled Provider: [facility] Appointment Type: Medicare Wellness Subsequent Future Scheduled Tests Laboratory* BUN 01/04/22 * Creatinine 01/04/22 * Electrolyte Panel 01/04/22 * CBC w/ Auto Diff 01/04/22 Radiology* CV Cardiovascular 12/13/21 [facility] [place] Evaluation + Plan note Future Appointments Appointment Date:07/18/2022 10:40:00 AM Scheduled Provider: Location:[facility] Appointment Type: Nurse Visit Appointment Date:05/10/2023 08:00:00 AM Scheduled Provider: Location:[facility] Appointment Type: Medicare Wellness Subsequent Future Scheduled Tests Laboratory* BUN 01/04/22 * Creatinine 01/04/22 * Electrolyte Panel 01/04/22 * CBC w/ Auto Diff 01/04/22 Radiology* CV Cardiovascular 12/13/21 [facility] Evaluation + Plan note Future Appointments Appointment Date:08/01/2022 10:20:00 AM Scheduled Provider: Location:[facility] Appointment Type: Nurse Visit Appointment Date:08/02/2022 03:30:00 PM Scheduled Provider: [facility] Type:MA Screen (FT) Appointment Date:05/10/2023 08:00:00 AM Scheduled Provider: Location:[facility] Appointment Type: Medicare Wellness Subsequent Future Scheduled Tests Laboratory* BUN 01/04/22 * Creatinine 01/04/22 * Electrolyte Panel 01/04/22 * CBC w/ Auto Diff 01/04/22 Radiology* CV Cardiovascular 12/13/21 * MA Mamm Screen w/CAD if perf and 3D [place] 08/02/22 [facility] evaluation + Plan note Future Appointments Appointment Date:08/05/2022 10:15:00 AM Scheduled Provider: [facility] App[facility] Type:MA Screen (FT) Appointment Date:08/15/2022 10:20:00 AM Scheduled Provider: Location:[facility] Appointment Type: Nurse Visit Appointment Date:05/10/2023 08:00:00 AM Scheduled Provider: Location:[facility] Appointment Type: Medicare Wellness Subsequent Future Scheduled Tests Laboratory* BUN 01/04/22 * Creatinine 01/04/22 * Electrolyte Panel 01/04/22 * CBC w/ Auto Diff 01/04/22 Radiology* CV Cardiovascular 12/13/21 * MA Mamm Screen w/CAD if perf and 3D [place] 08/05/22 [facility] evaluation + Plan note Future Appointments Appointment Date:08/15/2022 10:20:00 AM Scheduled Provider: Location:[facility] Appointment Type: Nurse Visit Appointment Date:05/10/2023 08:00:00 AM Scheduled Provider: Location:[facility] Appointment Type: Medicare Wellness Subsequent Future Scheduled Tests Laboratory* BUN 01/04/22 * Creatinine 01/04/22 * Electrolyte Panel 01/04/22 * CBC w/ Auto Diff 01/04/22 Radiology* CV Cardiovascular [facility]13/21 [facility] Future App[facility]ments Appointment Date:08/29/2022 10:20:00 AM Scheduled Provider: Location:[facility] Appointment Type: Nurse Visit Appointment Date:05/10/2023 08:00:00 AM Scheduled Provider: Location:[facility] Appointment Type: Medicare Wellness Subsequent Future Scheduled Tests Laboratory* BUN 01/04/22 * Creatinine 01/04/22 * Electrolyte Panel 01/04/22 * CBC w/ Auto Diff 01/04/22 Radiology[facility] Appointment Date:09/12/2022 10:20:00 AM Scheduled Provider: Location:[facility] Appointment Type: Nurse Visit Appointment Date:05/10/2023 08:00:00 AM Scheduled Provider: Location:[facility] Appointment Type: Medicare Wellness Subsequent Future Scheduled Tests Laboratory* BUN 01/04/22 * Creatinine 01/04/22 * Electrolyte Panel 01/04/22 * CBC w/ Auto Diff 01/04/22 Radiology* CV Cardiovascular 12/13/21 [facility] Evaluation + Plan note Future Appointments Appointment Date:09/26/2022 10:40:00 AM Scheduled Provider: Location:[facility] Appointment Type: Nurse Visit Appointment Date:05/10/2023 08:00:00 AM Scheduled Provider: Location:[facility] Appointment Type: Medicare Wellness Subsequent Future Scheduled Tests Laboratory* BUN 01/04/22 * Creatinine 01/04/22 * Electrolyte Panel 01/04/22 * CBC w/ Auto Diff 01/04/22 Radiology* CV Cardiovascular 12/13/21 [facility] evaluation + Plan note Future Appointments Appointment Date:10/10/2022 10:40:00 AM Scheduled Provider: Location:[facility] Appointment Type: Nurse Visit Appointment Date:05/10/2023 08:00:00 AM Scheduled Provider: Location:[facility] Appointment Type: Medicare Wellness Subsequent Future Scheduled Tests Laboratory* BUN 01/04/22 * Creatinine 01/04/22 * Electrolyte Panel 01/04/22 * CBC w/ Auto Diff 01/04/22 Radiology* [facility] App[facility]ments Appointment Date:10/24/2022 10:40:00 AM Scheduled Provider: Location:[facility] Appointment Type: Nurse Visit Appointment Date:05/10/2023 08:00:00 AM Scheduled Provider: Location:[facility] Appointment Type: Medicare Wellness Subsequent Future Scheduled Tests Laboratory* BUN 01/04/22 * Creatinine 01/04/22 * Electrolyte Panel 01/04/22 * CBC w/ Auto Diff 01/04/22 Radiology* CV Cardiovascular 12/13/21 [facility] evaluation + Plan note Future Appointments Appointment Date:11/07/2022 10:40:00 AM Scheduled Provider: Location:[facility] Appointment Type: Nurse Visit Appointment Date:05/10/2023 08:00:00 AM Scheduled Provider: Location:[facility] Appointment Type: Medicare Wellness Subsequent Future Scheduled Tests Laboratory* BUN 01/04/22 * Creatinine 01/04/22 * Electrolyte Panel 01/04/22 * CBC w/ Auto Diff 01/04/22 Radiology* CV Cardiovascular 12/13/21 [facility] Evaluation + Plan note Future Appointments Appointment Date:11/21/2022 10:40:00 AM Scheduled Provider: Location:[facility] Appointment Type: Nurse Visit Appointment Date:05/10/2023 08:00:00 AM Scheduled Provider: [facility] Appoint[facility] Type: Medicare Wellness Subsequent Future Scheduled Tests Laboratory* BUN 01/04/22 * Creatinine 01/04/22 * Electrolyte Panel 01/04/22 * CBC w/ Auto Diff 01/04/22 Radiology* CV Cardiovascular 12/13/21 [facility] Evaluation + Plan note Future Appointments Appointment Date:12/20/2022 10:40:00 AM Scheduled Provider: [facility] Appointment Type: Nurse Visit Appointment Date:05/10/2023 08:00:00 AM Scheduled Provider: [facility] Appointment Type: Medicare Wellness Subsequent Future Scheduled Tests Laboratory* BUN 01/04/22 * Creatinine 01/04/22 * Electrolyte Panel 01/04/22 * CBC w/ Auto Diff 01/04/22 Radiology* CV Cardiovascular 12/13/21 [facility] Evaluation + Plan note Future Appointments Appointment Date:01/16/2023 10:40:00 AM Scheduled Provider: [facility] Appointment Type: Nurse Visit Appointment Date:05/10/2023 08:00:00 AM Scheduled Provider: [facility] Appointment Type: Medicare Wellness Subsequent Future Scheduled Tests Laboratory* BUN 01/04/22 * Creatinine 01/04/22 * Electrolyte Panel 01/04/22 * CBC w/ Auto Diff 01/04/22 [facility] Evaluation + Plan note Future Appointments Appointment Date:01/16/2023 10:40:00 AM Scheduled Provider: [facility] Appointment Type: Nurse Visit Appointment Date:05/10/2023 08:00:00 AM Scheduled Provider: [facility] Appointment Type: Medicare Wellness Subsequent [facility] Future App[facility]ments Appointment Date:01/30/2023 10:40:00 AM Scheduled Provider: Location:[facility] Appointment Type:FM Nurse Visit Appointment Date:05/10/2023 08:00:00 AM Scheduled Provider: Location:[facility] [place] Appointment Type:FM Medicare Wellness Subsequent [facility] [place] Evaluation + Plan note Future Appointments Appointment Date:03/14/2023 10:40:00 AM Scheduled Provider: Location:[facility] [place] Appointment Type:FM Nurse Visit Appointment Date:05/10/2023 08:00:00 AM Scheduled Provider: [facility] Appointment Type:FM Medicare Wellness Subsequent [facility] [place] Evaluation + Plan note Future Appointments Appointment Date:03/27/2023 10:40:00 AM Scheduled Provider: Location:[facility] [place] Appointment Type:FM Nurse Visit Appointment Date:05/10/2023 08:00:00 AM Scheduled Provider: Location:[facility] [place] Appointment Type:FM Medicare Wellness Subsequent [facility] [place] Evaluation + Plan note Future Appointments Appointment Date:04/10/2023 10:40:00 AM Scheduled Provider: Location:[facility] [place] Appointment Type:FM Nurse Visit Appointment Date:05/10/2023 08:00:00 AM Scheduled Provider: Location:[facility] [place] Appointment Type:FM Medicare Wellness Subsequent [facility] [place] Evaluation + Plan note Future Appointments Appointment Date:05/08/2023 10:40:00 AM Scheduled Provider: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
[2024-01-10] MEDS: 0.9 % SODIUM CHLORIDE 500 ML, LIDOCAINE HCL 20 ML, SODIUM BICARBONATE 10 MEQ INJ (12:51)
[2024-01-10] MEDS: LIDOCAINE HCL 1% 100 MG/10 ML MDV INJ (12:51)
== END 2024-01-10 11:55 | disposition home or self-care (01) ==
LOC: VC 10:24
PROVIDERS: Visit Provider Radiology Diagnostic Radiology
DX: I83.813 Varicose veins of bilateral lower extremities with pain (principal)
CPT/HCPCS: 36478

== ENCOUNTER 2024-01-17 09:54 | Outpatient (OUT) | payer MEDICARE, OTHER, SELFPAY ==
[2024-01-17 07:35] VITALS: BMI 37.5
--- NOTE | 2024-01-17 07:35 | V.VEINS.HP ---
Vital Signs 01/17/24 07:35 Height 5 ft 4 in Weight 99 kg BMI 37.5 Varicose Veins Patient is in this day for follow up ultrasound post EVLT of right leg GSV. Chase Mabry MD personally performed the services described in this documentation, as scribed by Noemí Castillo RVT, RDMS in my presence and it is both accurate and complete. Noemí Mabry RVT, RDMS, am scribing for, and in the presence of, Dr. Chase Hurley and in the presence of the patient. medial thigh: bilateral, knee: bilateral, calf: bilateral, ankle: bilateral and wahl: bilateral cramping, sharp and intermittent 5 20 years Worsened in recent months: Yes standing and sitting analgesics (ibuprofen and tylenol), bed rest, elevating extremities, compression stockings and exercise Reports leg edema and other (bulging veins, discolored veins, and dilated veins) History of lower extremity trauma: No Superficial thrombophlebitis: No Family history of varicose veins: yes Has patient had previous lower extremity venous surgery: No Patient has previously received the following treatment(s) for lower extremity varicose veins: Reports none Does patient have a history of : yes Does patient intend to have future pregnancies: no Has patient had lower extremity venous scan with relux testing: Yes Support hose used: Yes Problems walking or doing physical activity: Yes How does it affect you: Affects patients sleep and is not sleeping well Do you walk much: Yes Do you stand much: Yes Medication compliance: good Review of Systems ROS Narrative Chase Mabry MD personally performed the services described in this documentation, as scribed by Noemí Castillo RVT, RDMS in my presence and it is both accurate and complete. Noemí Mabry RVT, RDMS, am scribing for, and in the presence of, Dr. Chase Hurley and in the presence of the patient. Status of ROS 10 or more systems reviewed and unremarkable except as noted in history and below Cardiovascular Reports: edema, swelling of feet/ankles and leg pain with exertion Musculoskeletal Reports: extremity pain, extremity swelling, limited range of motion, joint swelling, muscle cramps and muscle weakness Integumentary/Breast Reports: skin pain, skin tenderness, skin swelling and changes in skin color Neurological Reports: numbness in extremities and weakness in extremities PFSH [facility] Medical History (Updated 01/10/24 @ 14:26 by Kwasi Ruiz MD) Pain due to varicose veins of both lower extremities ?I83.813 - Varicose veins of bilateral lower extremities with pain (ICD-10) Obesity ?E66.9 - Obesity, unspecified (ICD-10) Surgical History (Updated 01/10/24 @ 09:50 by Noemí Castillo) History of bunionectomy ?Z98.890 - Other specified postprocedural states (ICD-10) History of breast biopsy ?Z98.890 - Other specified postprocedural states (ICD-10) History of knee replacement procedure of right knee ?Z96.651 - Presence of right artificial knee joint (ICD-10) Family History (Updated 01/10/24 @ 09:52 by Noemí Castillo) Father Family history of CHF (congestive heart failure) Family history of diabetes mellitus Mother Varicose veins of bilateral lower extremities with pain Social History (Updated 01/10/24 @ 09:52 by Noemí Castillo) Within the past year, how often did you have a drink containing alcohol: 2-4 times a month Smoking status: Never smoker Non-prescribed substance use: denies use Meds Home Medications and Allergies Home Medications ?Medication ?Instructions ?Recorded ?Confirmed ?Type albuterol sulfate 2.5 mg/3 mL 1.25 mg inhalation TID 01/10/24 01/10/24 History (0.083 %) solution for nebulization cetirizine 10 mg tablet (24Hour 5 mg PO DAILY PRN allergy symptoms 01/10/24 01/10/24 History Allergy) clindamycin HCl 300 mg capsule 300 mg PO BID 01/10/24 01/10/24 History (Cleocin HCl) cyanocobalamin (vitamin B-12) 100 100 mcg PO DAILY 01/10/24 01/10/24 History mcg tablet (Vitamin B-12) escitalopram oxalate 20 mg tablet 20 mg PO DAILY 01/10/24 01/10/24 History (Lexapro) hydroxyzine pamoate 25 mg capsule 25 mg PO BID 01/10/24 01/10/24 History (Vistaril) montelukast 10 mg tablet 10 mg PO DAILY 01/10/24 01/10/24 History Allergies Allergy/AdvReac Type Severity Reaction Status Date / Time amoxicillin Allergy Mild Rash Unverified 01/10/24 10:00 codeine Allergy Mild Nausea Unverified 01/10/24 10:00 naproxen Allergy Unknown Unverified 01/10/24 10:00 Exam Narrative Exam Narrative: Chase Mabry MD personally performed the services described in this documentation, as scribed by Noemí Castillo RVT, RDMS in my presence and it is both accurate and complete. Noemí Mabry RVT, RDMS, am scribing for, and in the presence of, Dr. Chase Hurley and in the presence of the patient. Constitutional Documenting provider has reviewed patient's vital signs: yes Common normals: oriented x3 Lymph Lymphatic: no lymphedema noted Cardio Common normals: regular rate Rate: regular rate Peripheral pulses: posterior tibial pulses present and dorsalis pedis pulses present Extremity Common normals: normal capillary refill General: calf tenderness and edema Right lower extremity: upper leg and lower leg Left lower extremity: upper leg and lower leg Neuro Common normals: oriented x3 Results Imaging Venous US: Radiologist's impression: The ultrasound demonstrates Heat induced thrombus visualized 4.0cm from the SFJ. The heat induced thrombus extends from groin to distal calf. Assessment and Plan Assessment and Plan (1) Pain due to varicose veins of both lower extremities: Plan Patient in today for follow up ultrasound of lower extremity following treatment of EVLT of right leg GSV completed on 01/10/2024. The plan is for the patient to return for EVLT of left leg GSV. Chase Mabry MD personally performed the services described in this documentation, as scribed by Noemí Castillo RVT, RDMS in my presence and it is both accurate and complete. Noemí Mabry RVT, RDMS, am scribing for, and in the presence of, Dr. Chase Hurley and in the presence of the patient.
--- NOTE | 2024-01-17 09:55 | VEIN_ITS ---
Patient Name: JOSIAH ALONZO MR#: [id number] : 1955 Exam Date: 01/17/2024 Ordering Doctor: DR ABBY RODRIGUEZ M.D. RADIOLOGY REPORT PROCEDURE: VC EXT VENOUS RT LMTD COMPARISON: None. INDICATIONS: I80.01 - Phlebitis and thrombophlebitis of superficial ve... TECHNIQUE: Lower extremity holcomb scale and Duplex Doppler evaluation of the deep venous system from the inguinal ligament through the calf veins. FINDINGS: REGION: Right lower extremity. THROMBI: Negative for DVT. Heat induced thrombus visualized 4.0cm from the SFJ. The heat induced thrombus extends from groin to distal calf. COMPRESSIBILITY: Non-compressible segments corresponding to thrombus FLOW: Areas of no flow corresponding to thrombus CONCLUSION: Post ablation occlusion of the right great saphenous vein with heat induced thrombus 4.0 cm from the saphenofemoral junction Dictated by: Chase Hurley MD on 01/17/2024 at 10:18 Approved by: Chase Hurley MD on 01/17/2024 at 10:19
--- NOTE | 2024-01-17 09:56 | VEIN_ITS ---
Patient Name: JOSIAH ALONZO MR#: [id number] : 1955 Exam Date: 01/17/2024 Ordering Doctor: DR CHASE NORRIS M.D. RADIOLOGY REPORT PROCEDURE: VC FACILITY EST LMTD VEIN C[facility] - OFFICE VISIT FOLLOW UP COMPARISON: None. PROGRESS NOTES: The patient reports no significant problems following intravenous laser ablation of the right great saphenous vein. The patient did not require oral analgesics. The patient does have problems with her compression stocking related to her toe problems. Patient is undergoing toe surgery next week and will delay her vein treatments for to 2 months. Physical exam demonstrates a 4 cm area of moderate bruising in the mid right medial thigh likely related to tumescence injection . The right great saphenous vein cannot be definitively palpated. No erythema or warmth to suggest cellulitis or thrombophlebitis. No active ulceration Review of the ultrasound performed the same day demonstrates occlusive thrombus extending throughout the treated right great saphenous vein. No deep vein thrombus . Heat induced thrombus is 4 cm from the saphenofemoral junction. The patient expressed a desire to proceed with treatment of incompetent left great saphenous vein. VEIN/VC Facility EST LMTD IMPRESSION: 1. Successful ablation of the right great saphenous vein 2. Persistent incompetent left great saphenous vein. PLAN: Intravenous laser ablation left great saphenous vein Nurse notes, history and physical were reviewed and confirmed, see attached forms. The nurse was present throughout the physical exam and consultation Dictated by: Chase Norris MD on 01/17/2024 at 10:29 Approved by: Chase Norris MD on 01/17/2024 at 10:30
--- NOTE | 2024-01-17 10:25 | W.VEIN ---
Discharge Plan Discharge Disposition: Home, Self-Care Outpatient Diagnostics: VC Endovenous Ablation 1VeinLT (Routine) Timeframe: 2 Weeks Facility: [facility] - Location: Vein Center Ordered By: Chase Hurley Follow Up Appointments: 02/14/2024 @1000 Plan of Treatment: EVLT of left leg GSV. Print Language: Citizen [place] Discharge Date/Time: 01/17/24 10:27
== END 2024-01-17 10:27 | disposition home or self-care (01) ==
PROVIDERS: PCP Radiology Diagnostic Radiology; Visit Provider Radiology Diagnostic Radiology
DX: I80.01 Phlebitis and thrombophlebitis of superficial vessels of right lower extremity (principal)
CPT/HCPCS: 93971; G0463

== ENCOUNTER 2024-02-21 12:58 | Outpatient (OUT) | payer MEDICARE, OTHER, SELFPAY ==
--- NOTE | 2024-02-20 15:40 | VEINCLINIC_ITS ---
Vital Signs 02/21/24 13:10 02/21/24 14:10 Height 5 ft 4 in Weight 98.883 kg BP 118/64 BP Location Left Brachial BP Position Sitting BP Cuff Size Adult BP Source Manual Cuff Respiration 20 Pulse 74 Pulse Source Monitor Pulse Oximetry (%) 96 Oxygen Delivery Method Room Air Varicose Veins Patient is in this day for EVLT of left GSV. Chase Mabry MD personally performed the services described in this documentation, as scribed by Ramon Atkinson RN in my presence and it is both accurate and complete. IRamon RN, am scribing for, and in the presence of, Dr. Chase Hurley and in the presence of the patient. medial thigh: bilateral, knee: bilateral, calf: bilateral, ankle: bilateral and wahl: bilateral cramping, sharp and intermittent 5 20 years Worsened in recent months: Yes standing and sitting analgesics (ibuprofen and tylenol), bed rest, elevating extremities, compression stockings and exercise Reports leg edema and other (bulging veins, discolored veins, and dilated veins) History of lower extremity trauma: No Superficial thrombophlebitis: No Family history of varicose veins: yes Has patient had previous lower extremity venous surgery: No Patient has previously received the following treatment(s) for lower extremity varicose veins: Reports none Does patient have a history of : yes Does patient intend to have future pregnancies: no Has patient had lower extremity venous scan with relux testing: Yes Support hose used: Yes Problems walking or doing physical activity: Yes How does it affect you: Affects patients sleep and is not sleeping well Do you walk much: Yes Do you stand much: Yes Medication compliance: good Review of Systems ROS Narrative Chase Mabry MD personally performed the services described in this documentation, as scribed by Ramon Atkinson RN in my presence and it is both accurate and complete. Ramon Mabry RN, am scribing for, and in the presence of, Dr. Chase Hurley and in the presence of the patient. Status of ROS 10 or more systems reviewed and unremark able except as noted in history and below Cardiovascular Reports: edema, swelling of feet/ankles and leg pain with exertion Musculoskeletal Reports: extremity pain, extremity swelling, limited range of motion, joint swelling, muscle cramps and muscle weakness Integumentary/Breast Reports: skin pain, skin tenderness, skin swelling and changes in skin color Neurological Reports: numbness in extremities and weakness in extremities [facility] Medical History (Updated 01/10/24 @ 14:26 by Kwasi Ruiz MD) Pain due to varicose veins of both lower extremities ?I83.813 - Varicose veins of bilateral lower extremities with pain (ICD-10) Obesity ?E66.9 - Obesity, unspecified (ICD-10) Surgical History (Updated 01/10/24 @ 09:50 by Noemí Castillo) History of bunionectomy ?Z98.890 - Other specified postprocedural states (ICD-10) History of breast biopsy ?Z98.890 - Other specified postprocedural states (ICD-10) History of knee replacement procedure of right knee ?Z96.651 - Presence of right artificial knee joint (ICD-10) Family History (Updated 01/10/24 @ 09:52 by Noemí Castillo) Father Family history of CHF (congestive heart failure) Family history of diabetes mellitus Mother Varicose veins of bilateral lower extremities with pain Social History (Updated 01/10/24 @ 09:52 by Noemí Castillo) Within the past year, how often did you have a drink containing alcohol: 2-4 times a month Smoking status: Never smoker Non-prescribed substance use: denies use Meds Home Medications and Allergies Home Medications ?Medication ?Instructions ?Recorded ?Confirmed ?Type albuterol sulfate 2.5 mg/3 mL 1.25 mg inhalation TID 01/10/24 01/10/24 History (0.083 %) solution for nebulization cetirizine 10 mg tablet (24Hour 5 mg PO DAILY PRN allergy symptoms 01/10/24 01/10/24 History Allergy) clindamycin HCl 300 mg capsule 300 mg PO BID 01/10/24 01/10/24 History (Cleocin HCl) cyanocobalamin (vitamin B-12) 100 100 mcg PO DAILY 01/10/24 01/10/24 History mcg tablet (Vitamin B-12) escitalopram oxalate 20 mg tablet 20 mg PO DAILY 01/10/24 01/10/24 History (Lexapro) hydroxyzine pamoate 25 mg capsule 25 mg PO BID 01/10/24 01/10/24 History (Vistaril) montelukast 10 mg tablet 10 mg PO DAILY 01/10/24 01/10/24 History Allergies Allergy/AdvReac Type Severity Reaction Status Date / Time amoxicillin Allergy Mild Rash Unverified 01/10/24 10:00 naproxen Allergy Unknown Unverified 01/10/24 10:00 codeine AdvReac Mild Nausea Unverified 02/15/24 15:47 Exam Narrative Exam Narrative: Chase Mabry MD personally performed the services described in this documentation, as scribed by Ramon Atkinson RN in my presence and it is both accurate and complete. IRamon RN, am scribing for, and in the presence of, Dr. Chase Hurley and in the presence of the patient.. 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 Brown in regards to MRI Chase Mabry MD personally performed the services described in this documentation, as scribed by Ramon Atkinson RN in my presence and it is both accurate and complete. Ramon Mabry RN, am scribing for, and in the presence of, Dr. Chase Hurley and in the presence of the patient. Procedures Procedure Instructions Procedures Plan of care: Risks and benefits of the procedure were discussed at length and informed written consent was obtained.? Time-out completed for verification of correct patient, procedure and site.? Staff present during time-out: Ramon Atkinson RN,? Chase Hurley MD, Valeria Valencia [facility] Time Out Time_[id number] Patient prepped and procedure performed in usual sterile fashion. Risk of injury related to use of Diode laser and/or laser devices__CR___ ? Serial number of laser used :? [id number] Control panel self test performed, electrical cords in good condition, floor is dry, basin of water available, fire extinguisher in close proximity_CR__ Polycarbonate goggles available and Laser warning signs outside of doors___CR__ Eye protection provided to patient and staff in room_CR___ Use of laser retardant drapes and dull blackened instruments as directed__CR___ Use of nonflammable prep solutions and use of saline soaked sponges to protect tissues as indicated _CR___ Length ___41__ cm Laser operated by _Dr. Ruiz Physician verbal confirmation laser locked in place__CR__ Laser start time (date and time) __02/21/2024@_1341 Laser stop time(date and time) __02/21/2024@_1346 [place]ro _8.0___ Average laser use __2102 Joules Average laser use___263 seconds Pulse continuous ___CR_? Pulse intermittent ___ Amount of Tumescent used Evaluated patient for signs and symptoms of electrical injury __CR___ ? Skin clear at insertion site __CR___ Patient tolerated procedure well.? Left leg Coban dressing applied to access site.? Applied Left thigh high leg compression stocking. Will return on 02/28/2024 for Left leg limited venous ultrasound and exam. IChase MD personally performed the services described in this documentation, as scribed by Ramon Atkinson RN in my presence and it is both accurate and complete. I, Ramon Atkinson RN, am scribing for, and in the presence of, Dr. Chase Hurley and in the presence of the patient.
--- NOTE | 2024-02-20 15:44 | W.VEIN ---
Discharge Plan Discharge Disposition: Home, Self-Care Outpatient Diagnostics: VC Facility EST LMTD (Routine) Timeframe: 2 Weeks Facility: [facility] - Location: Vein Center Ordered By: Chase Hurley VC EXT Venous LT Limited (Routine) Timeframe: 2 Weeks Facility: [facility] - Location: Vein Center Ordered By: Chase Hurley Follow Up Appointments: 02/28/2024 Plan of Treatment: f/u evaluation along with right leg limited u/s Patient Instructions: Endovenous Ablation (DC) Print Language: Maltese Discharge Date/Time: 02/21/24 14:12
[2024-02-21] MEDS: LIDOCAINE HCL 1% 100 MG/10 ML MDV INJ (13:01)
[2024-02-21] MEDS: 0.9 % SODIUM CHLORIDE 500 ML, LIDOCAINE HCL 20 ML, SODIUM BICARBONATE 10 MEQ INJ (13:02)
--- NOTE | 2024-02-21 13:02 | VEIN_ITS ---
[address] [address] Patient Name: JOSIAH LAONZO MRN: [id number] date: 1955 Sex: F Assigned Patient Location: Current Patient Location: Accession/Order Number: [id number] Exam Date: 02/21/2024 13:06 Report Date: 02/21/2024 13:58 At the request of: DIAZ NORRIS Procedure: VC Endovenous Ablation 1VeinLT EXAMINATION: VC Endovenous Ablation 1VeinLT HISTORY: I83.813 - Varicose veins of bilateral lower extremities w... COMPARISON: No relevant comparison available. TECHNIQUE: The risks and benefits of the procedure had been previously discussed, and were rediscussed at length. Informed written consent was obtained. Valeria warren and Ramon Atkinson assisted. Time out procedure was performed. The left lower extremity was prepared and draped in the usual sterile fashion to allow knee flexion in the sterile field. Duplex ultrasound probe was draped in a sterile cover, sterile transmission gel was used. Venous mapping was performed with the areas of dilation and large tributaries marked. The total length was 41 cm from the entry upper calf to 3 cm below the saphenofemoral junction. The diameter of the greater saphenous vein ranged from 5-8 mm. A 30 gauge needle and 1% buffered lidocaine was used to anesthetize the entry site. A 4 mm incision was made with a scalpel and the saphenous vein was entered percutaneously under direct ultrasound guidance with a micropuncture set, a single stick was successful in gaining access. A micro-guide wire was inserted and the needle removed. A micro-set including a dilator was inserted over the microwire and the needle and dilator were removed. A 0.018 guide wire was inserted through the micro-set and threaded through the saphenous vein to the saphenofemoral junction. The dilator was removed and an introducer sheath was inserted over the wire until the end of the sheath entered the saphenofemoral junction. The dilator and wire were removed and the 600 micron fiber was introduced and placed and positioned so that it extended beyond the sheath and was 3 cm peripheral to the saphenofemoral femoral junction. Final position of the fiber was determined by ultrasound guidance and duplex imaging. Tumescent anesthetic was delivered by ultrasound guidance. 200 cc of fluid was delivered along the entire course of the saphenous vein. The solution consisted of 1000 cc of normal saline with 40 mL of 1% lidocaine and 20 mL of sodium bicarbonate. A final positioning check was made. The energy source was turned on by means of the foot pedal and the fiber and sheath were withdrawn. The total number of Joules delivered was 2103. The laser was active for 263 seconds under continuous pulse, average laser use of 8 J. Laser start time 1:41 PM 02/21/2024 . Laser stop time 1:46 PM 02/21/2024 . A duplex ultrasound revealed compressibility and flow at the saphenofemoral junction immediately after the procedure. Hemostasis at the access site was achieved. The skin incision of the saphenous vein was closed with a 4 x 4. A compression stocking was applied. Postop instructions were given. A follow up appointment was recommended and scheduled. The patient tolerated the procedure well and was discharged in good condition . VEIN/VC Endovenous Ablation 1VeinLT IMPRESSION: Technically successful endovenous laser ablation left great saphenous vein Electronically authenticated by: DIAZ NORRIS Date: 02/21/2024 13:58
[2024-02-21 13:10] VITALS: BP 118/64; PULSE 74; O2SAT 96
== END 2024-02-21 14:12 | disposition home or self-care (01) ==
LOC: VC 12:58
PROVIDERS: PCP Radiology Diagnostic Radiology; Visit Provider Radiology Diagnostic Radiology
DX: I83.813 Varicose veins of bilateral lower extremities with pain (principal)
CPT/HCPCS: 36478

== ENCOUNTER 2024-02-28 13:55 | Outpatient (OUT) | payer MEDICARE, OTHER, SELFPAY ==
--- NOTE | 2024-02-28 13:56 | VEIN_ITS ---
Patient Name: JOSIAH ALONZO MR#: [id number] : 1955 Exam Date: 02/28/2024 Ordering Doctor: DR DIAZ NORRIS M.D. RADIOLOGY REPORT PROCEDURE: FACILITY EST LMTD VEIN CENTER - OFFICE VISIT FOLLOW UP COMPARISON: MR LOWER LEG RT WO CON, 01/05/2024. FACILITY EST LMTD, 01/17/2024. PROGRESS NOTES: The patient reports improvement in leg symptoms. There has been interval reduction in varicosities. The patient has followed our recommendations to walk 20-30 minutes once or twice per day since the procedure. Physical exam demonstrates decrease in varicosities of the leg. Persistent varicosities are identified along the legs bilaterally. Review of the ultrasound performed the same day demonstrates occlusive thrombus extending throughout the treated vein(s), see separate report, consistent with a successful ablation. No thrombus extending into or beyond the saphenofemoral junction. The patient expressed a desire to proceed with treatment of remaining incompetent varicosities. The patient was informed that treatment was a process and would require several procedures/sessions. VEIN/[facility] EST LMTD IMPRESSION: 1. Successful ablation of the left great saphenous vein(s). 2. Persistent bilateral varicose veins and lower extremity symptoms. PLAN: 1. Endovenous laser ablation of right anterior accessory saphenous vein. 2. Patient complains of pain and swelling in proximal right calf/popliteal region. No identifiable suspicious findings on today's ultrasound study. 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 Patient was referred to Dr. Brown who reportedly referred patient to Dr. Nguyen in [place]. Nurse notes, history and physical were reviewed and confirmed, see attached forms. The nurse was present throughout the physical exam and consultation Dictated by: Kwasi Ruiz M.D. on 02/28/2024 at 15:28 Approved by: Kwasi Ruiz M.D. on 02/28/2024 at 15:32
--- NOTE | 2024-02-28 13:56 | VEIN_ITS ---
Patient Name: JOSIAH ALONZO MR#: [id number] : 1955 Exam Date: 02/28/2024 Ordering Doctor: DR DIAZ NORRIS M.D. RADIOLOGY REPORT PROCEDURE: VC EXT VENOUS LT LIMITED COMPARISON: None. INDICATIONS: I80.02 - Phlebitis and thrombophlebitis of superficial veins left leg TECHNIQUE: Lower extremity holcomb scale and Duplex Doppler evaluation of the deep venous system from the inguinal ligament through the calf veins. FINDINGS: REGION: Left lower extremity. THROMBI: Negative for DVT. Heat induced thrombus in left GSV 3.4 cm from SFJ and extends to mid lower leg. COMPRESSIBILITY: Non-compressible segments corresponding to thrombus FLOW: Areas of no flow corresponding to thrombus OTHER: CONCLUSION: 1. Successful post ablation occlusion of left great saphenous vein. 2. Patient complains of swelling and right popliteal fossa. Ultrasound evaluation demonstrates slight late prominent appearance of the gastrocnemius muscle compared to left side. No definable mass or fluid collection on today's ultrasound study. Dictated by: Kwasi Ruiz M.D. on 02/28/2024 at 15:26 Approved by: Kwasi Ruiz M.D. on 02/28/2024 at 15:28
[2024-02-28 14:46] VITALS: BMI 37.5
--- NOTE | 2024-02-28 14:46 | V.VEINS.HP ---
Vital Signs 02/28/24 14:46 Height 5 ft 4 in Weight 99 kg BMI 37.5 Varicose Veins Patient in today for follow up ultrasound of left lower extremity following EVLT of left GSV completed on 02/21/24. Kwasi Mabry MD personally performed the services described in this documentation, as scribed by Valeria Hutton RDMS in my presence and it is both accurate and complete. Valeria Mabry RDMS, am scribing for, and in the presence of, Dr. Yosvany Ruiz and in the presence of the patient. medial thigh: bilateral, knee: bilateral, calf: bilateral, ankle: bilateral and wahl: bilateral cramping, sharp and intermittent 5 20 years Worsened in recent months: Yes standing and sitting analgesics (ibuprofen and tylenol), bed rest, elevating extremities, compression stockings and exercise Reports leg edema and other (bulging veins, discolored veins, and dilated veins) History of lower extremity trauma: No Superficial thrombophlebitis: No Family history of varicose veins: yes Has patient had previous lower extremity venous surgery: No Patient has previously received the following treatment(s) for lower extremity varicose veins: Reports none Does patient have a history of : yes Does patient intend to have future pregnancies: no Has patient had lower extremity venous scan with relux testing: Yes Support hose used: Yes Problems walking or doing physical activity: Yes How does it affect you: Affects patients sleep and is not sleeping well Do you walk much: Yes Do you stand much: Yes Medication compliance: good Review of Systems ROS Narrative Kwasi Mabry MD personally performed the services described in this documentation, as scribed by Valeria Hutton RDMS in my presence and it is both accurate and complete. Valeria Mabry RDMS, am scribing for, and in the presence of, Dr. Yosvany Ruiz and in the presence of the patient. Status of ROS 10 or more systems reviewed and unremarkable except as noted in history and below Cardiovascular Reports: edema, swelling of feet/ankles and leg pain with exertion Musculoskeletal Reports: extremity pain, extremity swelling, limited range of motion, joint swelling, muscle cramps and muscle weakness Integumentary/Breast Reports: skin pain, skin tenderness, skin swelling and changes in skin color Neurological Reports: numbness in extremities and weakness in [facility] Medical History (Updated 02/28/24 @ 14:47 by Valeria Hutton) Phlebitis and thrombophlebitis of superficial vessels of left lower extremity ?I80.02 - Phlebitis and thrombophlebitis of superficial vessels of left lower extremity (ICD-10) Pain due to varicose veins of both lower extremities ?I83.813 - Varicose veins of bilateral lower extremities with pain (ICD-10) Obesity ?E66.9 - Obesity, unspecified (ICD-10) Surgical History (Updated 01/10/24 @ 09:50 by Noemí Castillo) History of bunionectomy ?Z98.890 - Other specified postprocedural states (ICD-10) History of breast biopsy ?Z98.890 - Other specified postprocedural states (ICD-10) History of knee replacement procedure of right knee ?Z96.651 - Presence of right artificial knee joint (ICD-10) Family History (Updated 01/10/24 @ 09:52 by Noemí Castillo) Father Family history of CHF (congestive heart failure) Family history of diabetes mellitus Mother Varicose veins of bilateral lower extremities with pain Social History (Updated 01/10/24 @ 09:52 by Noemí Castillo) Within the past year, how often did you have a drink containing alcohol: 2-4 times a month Smoking status: Never smoker Non-prescribed substance use: denies use Meds Home Medications and Allergies Home Medications ?Medication ?Instructions ?Recorded ?Confirmed ?Type albuterol sulfate 2.5 mg/3 mL 1.25 mg inhalation TID 01/10/24 01/10/24 History (0.083 %) solution for nebulization cetirizine 10 mg tablet (24Hour 5 mg PO DAILY PRN allergy symptoms 01/10/24 01/10/24 History Allergy) clindamycin HCl 300 mg capsule 300 mg PO BID 01/10/24 01/10/24 History (Cleocin HCl) cyanocobalamin (vitamin B-12) 100 100 mcg PO DAILY 01/10/24 01/10/24 History mcg tablet (Vitamin B-12) escitalopram oxalate 20 mg tablet 20 mg PO DAILY 01/10/24 01/10/24 History (Lexapro) hydroxyzine pamoate 25 mg capsule 25 mg PO BID 01/10/24 01/10/24 History (Vistaril) montelukast 10 mg tablet 10 mg PO DAILY 01/10/24 01/10/24 History Allergies Allergy/AdvReac Type Severity Reaction Status Date / Time amoxicillin Allergy Mild Rash Unverified 01/10/24 10:00 naproxen Allergy Unknown Unverified 01/10/24 10:00 codeine AdvReac Mild Nausea Unverified 02/15/24 15:47 Exam Narrative Exam Narrative: Patient complains of right popliteal pain. Kwasi Mabry MD personally performed the services described in this documentation, as scribed by Valeria Hutton RDMS in my presence and it is both accurate and complete. Valeria Mabry RDMS, am scribing for, and in the presence of, Dr. Yosvany Ruiz and in the presence of the patient. Constitutional Documenting provider has reviewed patient's vital signs: yes Common normals: oriented x3 Lymph Lymphatic: no lymphedema noted Cardio Common normals: regular rate Rate: regular rate Peripheral pulses: posterior tibial pulses present and dorsalis pedis pulses present Extremity Common normals: normal capillary refill General: calf tenderness and edema Right lower extremity: upper leg and lower leg Left lower extremity: upper leg and lower leg Neuro Common normals: oriented x3 Results Imaging Venous US: Radiologist's impression: Heat induced thrombus in left GSV 3.4 cm from SFJ and extends to mid calf. Right gastroc muscle appears thickened. Kwasi Mabry MD personally performed the services described in this documentation, as scribed by Valeria Hutton RDMS in my presence and it is both accurate and complete. Valeria Mabry RDMS, am scribing for, and in the presence of, Dr. Yosvany Ruiz and in the presence of the patient. Assessment and Plan Assessment and Plan (1) Phlebitis and thrombophlebitis of superficial vessels of left lower extremity: Plan Plan is for patient to return for EVLT of right AASV on 03/15/24. Kwasi Mabry MD personally performed the services described in this documentation, as scribed by Valeria Hutton RDMS in my presence and it is both accurate and complete. I, Valeria Hutton RDMS, am scribing for, and in the presence of, Dr. Yosvany Ruiz and in the presence of the patient.
--- NOTE | 2024-02-28 14:49 | W.VEIN ---
Discharge Plan Discharge Disposition: Home, Self-Care Outpatient Diagnostics: VC Endovenous Ablation 1VeinRT (Routine) Timeframe: 2 Weeks Facility: [facility] - Location: Vein Center Ordered By: Kwasi Ruiz Follow Up Appointments: 03/15/24 Plan of Treatment: EVLT of right AASV EVLT Tumescent Anesthesia: 500 mL 0.9% NS with 20 mL 1% Lidocaine and 10 mL 8.4% NAHCO3 Buffered Local Anesthesia: 10 mL of 1% Lidocaine Buffered Print Language: Uzbek Discharge Date/Time: 02/28/24 14:50
== END 2024-02-28 14:50 | disposition home or self-care (01) ==
PROVIDERS: PCP Radiology Diagnostic Radiology; Visit Provider Radiology Diagnostic Radiology
DX: I80.02 Phlebitis and thrombophlebitis of superficial vessels of left lower extremity (principal)
CPT/HCPCS: 93971; G0463

== ENCOUNTER 2024-03-15 12:32 | Outpatient (OUT) | payer MEDICARE, OTHER, SELFPAY ==
--- NOTE | 2024-03-15 08:04 | VEINCLINIC_ITS ---
Vital Signs 03/15/24 08:08 03/15/24 13:07 Height 5 ft 4 in Weight 98.883 kg BP 124/70 BP Location Left Brachial BP Position Sitting BP Cuff Size Adult BP Source Manual Cuff Respiration 18 Pulse 72 Pulse Source Monitor Pulse Oximetry (%) 95 Oxygen Delivery Method Room Air Comment The patient's blood pressure is elevated. Varicose Veins Patient in today for EVLT of right AASV. Kwasi Mabry MD personally performed the services described in this documentation, as scribed by Ramon Atkinson RN in my presence and it is both accurate and complete. Ramon Mabry RN, am scribing for, and in the presence of, Dr. Kwasi Ruiz and in the presence of the patient. medial thigh: bilateral, knee: bilateral, calf: bilateral, ankle: bilateral and wahl: bilateral cramping, sharp and intermittent 5 20 years Worsened in recent months: Yes standing and sitting analgesics (ibuprofen and tylenol), bed rest, elevating extremities, compression stockings and exercise Reports leg edema and other (bulging veins, discolored veins, and dilated veins) History of lower extremity trauma: No Superficial thrombophlebitis: No Family history of varicose veins: yes Has patient had previous lower extremity venous surgery: No Patient has previously received the following treatment(s) for lower extremity varicose veins: Reports none Does patient have a history of : yes Does patient intend to have future pregnancies: no Has patient had lower extremity venous scan with relux testing: Yes Support hose used: Yes Problems walking or doing physical activity: Yes How does it affect you: Affects patients sleep and is not sleeping well Do you walk much: Yes Do you stand much: Yes Medication compliance: good Review of Systems ROS Narrative Kwasi Mabry MD personally performed the services described in this documentation, as scribed by Ramon Aktinson RN in my presence and it is both accurate and complete. Ramon Mabry RN, am scribing for, and in the presence of, Dr. Kwasi Ruiz and in the presence of the patient. Status of ROS 10 or more systems reviewed and unremark able except as noted in history and below Cardiovascular Reports: edema, swelling of feet/ankles and leg pain with exertion Musculoskeletal Reports: extremity pain, extremity swelling, limited range of motion, joint swelling, muscle cramps and muscle weakness Integumentary/Breast Reports: skin pain, skin tenderness, skin swelling and changes in skin color Neurological Reports: numbness in extremities and weakness in extremities PFSH PFS Medical History (Updated 03/15/24 @ 13:11 by Ramon Atkinson) Phlebitis and thrombophlebitis of superficial vessels of left lower extremity ?I80.02 - Phlebitis and thrombophlebitis of superficial vessels of left lower extremity (ICD-10) Pain due to varicose veins of both lower extremities ?I83.813 - Varicose veins of bilateral lower extremities with pain (ICD-10) Obesity ?E66.9 - Obesity, unspecified (ICD-10) Surgical History (Updated 03/15/24 @ 13:11 by Ramon Atkinson) Status post laser ablation of incompetent vein ?Z98.890 - Other specified postprocedural states (ICD-10) History of bunionectomy ?Z98.890 - Other specified postprocedural states (ICD-10) History of breast biopsy ?Z98.890 - Other specified postprocedural states (ICD-10) History of knee replacement procedure of right knee ?Z96.651 - Presence of right artificial knee joint (ICD-10) Family History (Updated 01/10/24 @ 09:52 by Noemí Castillo) Father Family history of CHF (congestive heart failure) Family history of diabetes mellitus Mother Varicose veins of bilateral lower extremities with pain Social History (Updated 01/10/24 @ 09:52 by Noemí Castillo) Within the past year, how often did you have a drink containing alcohol: 2-4 times a month Smoking status: Never smoker Non-prescribed substance use: denies use Meds Home Medications and Allergies Home Medications ?Medication ?Instructions ?Recorded ?Confirmed ?Type albuterol sulfate 2.5 mg/3 mL 1.25 mg inhalation TID 01/10/24 01/10/24 History (0.083 %) solution for nebulization cetirizine 10 mg tablet (24Hour 5 mg PO DAILY PRN allergy symptoms 01/10/24 01/10/24 History Allergy) clindamycin HCl 300 mg capsule 300 mg PO BID 01/10/24 01/10/24 History (Cleocin HCl) cyanocobalamin (vitamin B-12) 100 100 mcg PO DAILY 01/10/24 01/10/24 History mcg tablet (Vitamin B-12) escitalopram oxalate 20 mg tablet 20 mg PO DAILY 01/10/24 01/10/24 History (Lexapro) hydroxyzine pamoate 25 mg capsule 25 mg PO BID 01/10/24 01/10/24 History (Vistaril) montelukast 10 mg tablet 10 mg PO DAILY 01/10/24 01/10/24 History Allergies Allergy/AdvReac Type Severity Reaction Status Date / Time amoxicillin Allergy Mild Rash Unverified 01/10/24 10:00 naproxen Allergy Unknown Unverified 01/10/24 10:00 codeine AdvReac Mild Nausea Unverified 02/15/24 15:47 Exam Narrative Exam Narrative: Kwasi Mabry MD personally performed the services described in this documentation, as scribed by Ramon Atkinson RN in my presence and it is both accurate and complete. IRamon RN, am scribing for, and in the presence of, Dr. Kwasi Ruiz and in the presence of the patient. Constitutional Documenting provider has reviewed patient's vital signs: yes Common normals: oriented x3 Lymph Lymphatic: no lymphedema noted Cardio Common normals: regular rate Rate: regular rate Peripheral pulses: posterior tibial pulses present and dorsalis pedis pulses present Extremity Common normals: normal capillary refill General: calf tenderness and edema Right lower extremity: upper leg and lower leg Left lower extremity: upper leg and lower leg Neuro Common normals: oriented x3 Assessment and Plan Assessment and Plan (1) Phlebitis and thrombophlebitis of superficial vessels of left lower extremity: Plan f/u evaluation with physician along with right leg limited u/s Kwasi Mabry MD personally performed the services described in this documentation, as scribed by Ramon Atkinson RN in my presence and it is both accurate and complete. Ramon Mabry RN, am scribing for, and in the presence of, Dr. Kwasi Ruiz and in the presence of the patient. Procedures Procedure Instructions Procedures Plan of care: Risks and benefits of the procedure were discussed at length and informed written consent was obtained.? Time-out completed for verification of correct patient, procedure and site.? Staff present during time-out: Ramon Atkinson RN,? Kwasi Ruiz MD, Noemí Castillo RDMS,RVT. Time Out Time__1302 Patient prepped and procedure performed in usual sterile fashion. Risk of injury related to use of Diode laser and/or laser devices __CR___ ? Serial number of laser used :? [id number] Control panel self test performed, electrical cords in good condition, floor is dry, basin of water available, fire extinguisher in close proximity_CR__ Polycarbonate goggles available and Laser warning signs outside of doors___CR__ Eye protection provided to patient and staff in room_CR___ Use of laser retardant drapes and dull blackened instruments as directed__CR___ Use of nonflammable prep solutions and use of saline soaked sponges to protect tissues as indicated _CR___ Length __19 cm Laser operated by _Dr. Ruiz Physician verbal confirmation laser locked in place__CR__ Laser start time (date and time) _03/15/2024@__1313 Laser stop time(date and time) __03/15/2024@_1316 [place] _8.0___ Average laser use __984 Joules Average laser use__123 seconds Pulse continuous ___CR_? Pulse intermittent ___ Amount of Tumescent used __125cc____ Evaluated patient for signs and symptoms of electrical injury __CR___ ? Skin clear at insertion site __CR___ Patient tolerated procedure well.? Right leg Coban dressing applied to access site.? Applied right thigh high leg compression stocking. Will return on 03/22/2024 for right leg limited venous ultrasound and exam.
--- NOTE | 2024-03-15 08:07 | W.VEIN ---
Discharge Plan Discharge Disposition: Home, Self-Care Outpatient Diagnostics: VC Facility EST LMTD (Routine) Timeframe: 2 Weeks Facility: [facility] - Location: Vein Center Ordered By: Kwasi Ruiz VC EXT Venous Reflux RT LMTD (Routine) Timeframe: 2 Weeks Facility: [facility] - Location: Vein Center Ordered By: Kwasi Ruiz Follow Up Appointments: 03/22/2024 Plan of Treatment: f/u evaluation along with physician right leg limited u/s Patient Instructions: Endovenous Ablation (DC) Print Language: Albanian Discharge Date/Time: 03/15/24 13:32
--- NOTE | 2024-03-15 12:34 | VEIN_ITS ---
The [address] [address] Patient Name: JOSIAH ALONZO MRN: [id number] date: 1955 Sex: F Assigned Patient Location: Current Patient Location: Accession/Order Number: [id number] Exam Date: 03/15/2024 12:39 Report Date: 03/15/2024 14:24 At the request of: ABBY RODRIGUEZ Procedure: VC Endovenous Ablation 1VeinRT EXAMINATION: VC Endovenous Ablation 1VeinRT HISTORY: I83.813 - Varicose veins of bilateral lower extremities w... The risks and benefits of the procedure had been previously discussed, and were rediscussed at length. Informed written consent was obtained. Ramon Atkinson RN and Noemí Castillo RDMS, RVT assisted. Time out procedure was performed. The right lower extremity was prepared and draped in the usual sterile fashion to allow knee flexion in the sterile field. Duplex ultrasound probe was draped in a sterile cover, sterile transmission gel was used. Venous mapping was performed with the areas of dilation and large tributaries marked. The total length was 19 cm from the entry mid-upper thigh to 3 cm below the Saphenofemoral junction. The diameter of the right anterior accessory saphenous vein ranged from 8.1 mm. A 30 gauge needle and 1% buffered lidocaine was used to anesthetize the entry site. A 4 mm incision was made with a scalpel and the saphenous vein was entered percutaneously under direct ultrasound guidance with a micropuncture set, a single stick was successful in gaining access. A micro-guide wire was inserted and the needle removed. A micro-set including a dilator was inserted over the microwire and the needle and dilator were removed. A guide wire was inserted through the micro-set and guided through the saphenous vein to the saphenofemoral junction. The dilator was removed and an introducer sheath was inserted over the wire until the end of the sheath entered the saphenofemoral junction. The dilator and wire were removed and the 600 micron fiber was introduced and placed and positioned so that it extended beyond the sheath and was 3 cm distal to the saphenofemoral or saphenopopliteal junction. Final position of the fiber was determined by ultrasound guidance and duplex imaging. Tumescent anesthetic was delivered by ultrasound guidance. A 25 cc of fluid was delivered along the entire course of the saphenous vein. The solution consisted of 1000 cc of normal saline with 40 mL of 1% lidocaine and 20 mL of sodium bicarbonate. A final positioning check was made. The energy source was turned on by means of the foot pedal and the fiber and sheath were withdrawn. The total number of Joules delivered was 984. The laser was active for 123 seconds under continuous pulse, average laser use of 8 J. Laser start time: 1:13 PM Laser stop time: 1:16 PM Date: 03/15/2024. A duplex ultrasound revealed compressibility and flow at the saphenofemoral junction immediately after the procedure. Hemostasis at the access site was achieved. The skin incision of the saphenous vein was closed with a 4 x 4. A compression stocking was applied. Postop instructions were given. A follow up appointment was recommended and scheduled. The patient tolerated the procedure well. Electronically authenticated by: ABBY RODRIGUEZ Date: 03/15/2024 14:24
[2024-03-15] MEDS: LIDOCAINE HCL 1% 100 MG/10 ML MDV INJ (13:00)
[2024-03-15] MEDS: 0.9 % SODIUM CHLORIDE 500 ML, LIDOCAINE HCL 20 ML, SODIUM BICARBONATE 10 MEQ INJ (13:03)
[2024-03-15 13:07] VITALS: BP 124/70; PULSE 72; O2SAT 95
== END 2024-03-15 13:32 | disposition home or self-care (01) ==
LOC: VC 12:32
PROVIDERS: PCP Radiology Diagnostic Radiology; Visit Provider Radiology Diagnostic Radiology
DX: I83.813 Varicose veins of bilateral lower extremities with pain (principal)
CPT/HCPCS: 36478

== ENCOUNTER 2024-03-22 12:30 | Outpatient (OUT) | payer MEDICARE, OTHER, SELFPAY ==
--- NOTE | 2024-03-22 | VEIN_ITS ---
Patient Name: JOSIAH ALONZO MR#: [id number] : 1955 Exam Date: 03/22/2024 Ordering Doctor: DR CHASE NORRIS M.D. RADIOLOGY REPORT PROCEDURE: VC EXT VENOUS RT LMTD COMPARISON: VC EXT VENOUS RT LMTD, 01/17/2024. INDICATIONS: I80.01 Phlebitis of superficial veins of rt lower extremity TECHNIQUE: Lower extremity holcomb scale and Duplex Doppler evaluation of the deep venous system from the inguinal ligament through the calf veins. FINDINGS: REGION: Right lower extremity. THROMBI: Negative for DVT. Heat induced thrombus in right AASV 2.5 cm from SFJ and extends to mid thigh. COMPRESSIBILITY: Non-compressible segments corresponding to thrombus FLOW: Areas of no flow corresponding to thrombus CONCLUSION: Post ablation occlusion of the right anterior accessory saphenous vein with heat induced thrombus 2.5 cm from the saphenofemoral junction Dictated by: Chase Norris MD on 03/22/2024 at 12:58 Approved by: Chase Norris MD on 03/22/2024 at 13:03
--- NOTE | 2024-03-22 08:09 | VEINCLINIC_ITS ---
Vital Signs 03/22/24 13:04 Height 5 ft 4 in Weight 98.9 kg BMI 37.4 Varicose Veins Patient in today for follow up ultrasound of right lower extremity following EVLT of right AASV completed on 03/15/24. Chase Mabry MD personally performed the services described in this documentation, as scribed by Valeria Hutton RDMS in my presence and it is both accurate and complete. Valeria Mabry RDMS, am scribing for, and in the presence of, Dr. Chase Hurley and in the presence of the patient. medial thigh: bilateral, knee: bilateral, calf: bilateral, ankle: bilateral and wahl: bilateral cramping, sharp and intermittent 5 20 years Worsened in recent months: Yes standing and sitting analgesics (ibuprofen and tylenol), bed rest, elevating extremities, compression stockings and exercise Reports leg edema and other (bulging veins, discolored veins, and dilated veins) History of lower extremity trauma: No Superficial thrombophlebitis: No Family history of varicose veins: yes Has patient had previous lower extremity venous surgery: No Patient has previously received the following treatment(s) for lower extremity varicose veins: Reports none Does patient have a history of : yes Does patient intend to have future pregnancies: no Has patient had lower extremity venous scan with relux testing: Yes Support hose used: Yes Problems walking or doing physical activity: Yes How does it affect you: Affects patients sleep and is not sleeping well Do you walk much: Yes Do you stand much: Yes Medication compliance: good Review of Systems ROS Narrative Chase Mabry MD personally performed the services described in this documentation, as scribed by Valeria Hutton RDMS in my presence and it is both accurate and complete. Valeria Mabry RDMS, am scribing for, and in the presence of, Dr. Chase Hurley and in the presence of the patient. Status of ROS 10 or more systems reviewed and unremark able except as noted in history and below Cardiovascular Reports: edema, swelling of feet/ankles and leg pain with exertion Musculoskeletal Reports: extremity pain, extremity swelling, limited range of motion, joint swelling, muscle cramps and muscle weakness Integumentary/Breast Reports: skin pain, skin tenderness, skin swelling and changes in skin color Neurological Reports: numbness in extremities and weakness in extremities PFSH PFSH Medical History (Updated 03/15/24 @ 13:11 by Ramon Atkinson) Phlebitis and thrombophlebitis of superficial vessels of left lower extremity ?I80.02 - Phlebitis and thrombophlebitis of superficial vessels of left lower extremity (ICD-10) Pain due to varicose veins of both lower extremities ?I83.813 - Varicose veins of bilateral lower extremities with pain (ICD-10) Obesity ?E66.9 - Obesity, unspecified (ICD-10) Surgical History (Updated 03/15/24 @ 13:11 by Ramon Atkinson) Status post laser ablation of incompetent vein ?Z98.890 - Other specified postprocedural states (ICD-10) History of bunionectomy ?Z98.890 - Other specified postprocedural states (ICD-10) History of breast biopsy ?Z98.890 - Other specified postprocedural states (ICD-10) History of knee replacement procedure of right knee ?Z96.651 - Presence of right artificial knee joint (ICD-10) Family History (Updated 01/10/24 @ 09:52 by Noemí Castillo) Father Family history of CHF (congestive heart failure) Family history of diabetes mellitus Mother Varicose veins of bilateral lower extremities with pain Social History (Updated 01/10/24 @ 09:52 by Noemí Castillo) Within the past year, how often did you have a drink containing alcohol: 2-4 times a month Smoking status: Never smoker Non-prescribed substance use: denies use Meds Home Medications and Allergies Home Medications ?Medication ?Instructions ?Recorded ?Confirmed ?Type albuterol sulfate 2.5 mg/3 mL 1.25 mg inhalation TID 01/10/24 01/10/24 History (0.083 %) solution for nebulization cetirizine 10 mg tablet (24Hour 5 mg PO DAILY PRN allergy symptoms 01/10/24 01/10/24 History Allergy) clindamycin HCl 300 mg capsule 300 mg PO BID 01/10/24 01/10/24 History (Cleocin HCl) cyanocobalamin (vitamin B-12) 100 100 mcg PO DAILY 01/10/24 01/10/24 History mcg tablet (Vitamin B-12) escitalopram oxalate 20 mg tablet 20 mg PO DAILY 01/10/24 01/10/24 History (Lexapro) hydroxyzine pamoate 25 mg capsule 25 mg PO BID 01/10/24 01/10/24 History (Vistaril) montelukast 10 mg tablet 10 mg PO DAILY 01/10/24 01/10/24 History Allergies Allergy/AdvReac Type Severity Reaction Status Date / Time amoxicillin Allergy Mild Rash Unverified 01/10/24 10:00 naproxen Allergy Unknown Unverified 01/10/24 10:00 codeine AdvReac Mild Nausea Unverified 02/15/24 15:47 Exam Narrative Exam Narrative: Patient has no complaints today. Chase Mabry MD personally performed the services described in this documentation, as scribed by Valeria Hutton RDMS in my presence and it is both accurate and complete. Valeria Mabry RDMS, am scribing for, and in the presence of, Dr. Chase Hurley and in the presence of the patient. Constitutional Documenting provider has reviewed patient's vital signs: yes Common normals: oriented x3 Lymph Lymphatic: no lymphedema noted Cardio Common normals: regular rate Rate: regular rate Peripheral pulses: posterior tibial pulses present and dorsalis pedis pulses present Extremity Common normals: normal capillary refill General: calf tenderness and edema Right lower extremity: upper leg and lower leg Left lower extremity: upper leg and lower leg Neuro Common normals: oriented x3 Results Imaging Venous US: Radiologist's impression: Heat induced thrombus in right AASV 2.5 cm from SFJ and extends to mid thigh. Chase Mabry MD personally performed the services described in this documentation, as scribed by Valeria Hutton RDMS in my presence and it is both accurate and complete. Valeria Mabry RDMS, am scribing for, and in the presence of, Dr. Chase Hurley and in the presence of the patient. Assessment and Plan Assessment and Plan (1) Phlebitis and thrombophlebitis of superficial vessels of right lower extremity: Plan Plan is for patient to return for Varithena/microfoam of left leg on 04/08/24. Chase Mabry MD personally performed the services described in this documentation, as scribed by Valeria Hutton RDMS in my presence and it is both accurate and complete. I, Valeria Bollenbacher RDMS, am scribing for, and in the presence of, Dr. Chase Hurley and in the presence of the patient.
--- NOTE | 2024-03-22 08:20 | P.DS_ITS ---
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
--- NOTE | 2024-03-22 08:20 | W.VEIN ---
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
--- NOTE | 2024-03-22 12:32 | VEIN_ITS ---
Patient Name: JOSIAH ALONZO MR#: [id number] : 1955 Exam Date: 03/22/2024 Ordering Doctor: DR ABBY RODRIGUEZ M.D. RADIOLOGY REPORT PROCEDURE: FACILITY EST LMTD VEIN CENTER - OFFICE VISIT FOLLOW UP COMPARISON: [facility] EST LMTD, 02/28/2024. [facility] EST LMTD, 01/17/2024. PROGRESS NOTES: The patient reports no significant problems following intravenous laser ablation of the right anterior accessory saphenous vein. The patient complains of persistent numbness of her foot related to prior foot surgery. 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 Physical exam demonstrates no erythema or warmth to suggest cellulitis or thrombophlebitis. The incision is sealed. Moderate area of bruising measuring 10 cm anterior proximal thigh likely related to tumescent injection. No active ulceration Review of the ultrasound performed the same day demonstrates occlusive thrombus extending throughout the treated right anterior accessory saphenous vein with heat induced thrombus 2.5 cm from the saphenofemoral junction. The patient's right calf/soleus mass seen on MRI was discussed with her. The patient was provided the report. The patient was encouraged to follow-up with her appointment at the [facility] The patient expressed a desire to proceed with treatment of incompetent varicose veins with micro foam chemical ablation. VEIN/[facility] EST LMTD IMPRESSION: 1. Successful ablation of the right anterior accessory saphenous vein. 2. Persistent bilateral varicose veins. PLAN: Micro foam chemical ablation incompetent varicose veins Nurse notes, history and physical were reviewed and confirmed, see attached forms. The nurse was present throughout the physical exam and consultation Dictated by: Chase Hurley MD on 03/22/2024 at 13:32 Approved by: Chase Hurley MD on 03/22/2024 at 13:49
--- OUTSIDE RECORDS SUMMARY | 2024-03-22 12:49 | XMS_ITS | CCD ---
Author Organization [facility] Care Team Providers Care Pipe Foreman Name Role Phone Esperanza Chaney Primary Care Provider [phone] RAMIRO OLSEN Attending Unavailab le BROWN, ESPERANZA Carmichael Primary Care Unavailable Esperanza CHANEY Primary Care Physician Kaitlin Andera Unavailable Unavailable Ritu HALL, Esperanza Carmichael Primary [...] Care Unavailable Guerita Knapp Primary Care Physician [phone] Esperanza Chaney MD Primary Care Provider Guerita Knapp Primary Care Physician [phone] Dolce, Brady D Attending Unavailable Dolce, Brady D Referring Unavailable Dolce, Brady D Admitting Unavailable REFERRAL, SELF Referring Unavailable REFERRAL, SELF Attending Unavailable REFERRAL, SELF Admitting Unavailable BROWN, Christopher Consulting Unavailable MD RITU Christopher Consulting UnavailNathalie Castillo Consulting Unavailable BROWN, Christopher Consulting Unavailable BROWN, [...] Christopher Consulting Unavailable BROWN, Christopher Consulting Unavailable Dolce, Brady D Admitting Unavailable Dolce, Brady D Attending Unavailable BROWNEsperanza Attending Unavailable Guerita Knapp Attending Unavailable KnappGuerita lepe Attending Unavailable KnappGuerita coates Attending Unavailable BROWNEsperanza Attending Unavailable Dolce, Brady D Admitting Unavailable Dolce, Brady D Attending Unavailable Dolce, Brady D Attending Unavailable Dolce, Brady D Admitting Unavailable KnappGuerita lepe Attending Unavailable KnappGuerita coates Attending Unavailable BROWNEsperanza Attending Unavailable BROWNEsperanza Attending Unavailable BROWNEsperanza Attending Unavailable BROWNEsperanza Attending Unavailable KnappGuerita lepe Attending Unavailable KnappGuerita lepe Attending Unavailable KnappGuerita lepe Attending Unavailable KnappGuerita coates Attending Unavailable KnappGuerita coates Attending Unavailable BROWNVikram Attending Unavailable BROWNEsperanza Attending Unavailable BROWNEsperanza Attending Unavailable BROWNEsperanza Attending Unavailable BROWNEsperanza Attending Unavailable KnappGuerita lepe Attending Unavailable BROWNEsperanza Attending Unavailable BROWNEsperanza Attending Unavailable BROWN Christelbert Attending Unavailable BROWNEsperanza Attending Unavailable KnappGuerita lepe Attending Unavailable KnappGuerita lepe Attending Unavailable KnappGuerita coates Attending Unavailable BROWNVikram Attending Unavailable KnappGuerita coates Attending Unavailable KnappGuerita coates Attending Unavailable BROWNEsperanza Attending Unavailable KnappGuerita coates Attending Unavailable Esperanza CHANEY Attending Unavailable Guerita Knapp Attending Unavailable DOLCE, BRADY Henrry Attending Unavailable DOLCE, BRADY Henrry Attending Unavailable HILLS, REGGIE D Referring Unavailable HILLS, REGGIE D Attending Unavailable DOLCE, BRADY D Attending Unavailable DOLCE, BRADY D Attending Unavailable DOLCE, BRADY D Referring Unavailable DOLCE, BRADY D Attending Unavailable DOLCE, BRADY D Attending Unavailable DOLCE, BRADY D Referring Unavailable DOLCE, BRADY D Attending Unavailable DOLCE, BRADY D Referring Unavailable DOLCE, BRADY D Attending Unavailable DOLCE, BRADY D Attending Unavailable DOLCE, BRADY D Attending Unavailable DOLCE, BRADY D Attending Unavailable DOLCE, BRADY D Attending Unavailable DOLCE, BRADY D Referring Unavailable WARNER, JOAN T Referring Unavailable WARNER, JOAN T Attending Unavailable DOLCE, BRADY D Attending Unavailable DOLCE, BRADY D Attending Unavailable DOLCE, BRADY D Referring Unavailable DOLCE, BRADY D Attending Unavailable DOLCE, BRADY D Attending Unavailable DOLCE, BRADY D Referring Unavailable DOLCE, BRADY D Attending Unavailable RobertoClaribelAngi A. Primary Care Physician Unavail able Guerita Knapp Attending Unavailable Guerita Knapp Attending Unavailable KnappGuerita lepe Attending Unavailable KnappGuerita coates Attending Unavailable KnappGuerita coates Attending Unavailable Dolce, Brady Sales Admitting Unavailable Dolce, Brady Sales Attending Unavailable RobertoAngi ANilda Attending Unavailable Allergies Allergy Classification Reported Allergen(s) Allergy Type Date of Onset Reaction(s) Facility NSAIDs (2 sources) Naproxen; Translations: [naproxen] Drug Allergy Nausea (finding) [facility] Opioid Agonists (2 sources) Codeine; Translations: [codeine] Drug Allergy Lightheadedness (finding), Nausea and vomiting (disorder) [facility] Penicillins (antibiotic) (2 sources) Amoxicillin; Translations: [amoxicillin] Drug Allergy Cutaneous eruption (morphologic abnormality) [facility] (20 sources) Codeine; Translations: [Unknown] Drug Allergy 0 GI Intolerance, Lightheadedness (finding), Nausea and vomiting (disorder), Dizziness, Nausea And Vomiting, Unknown [facility] (20 sources) Amoxicillin; Translations: [amoxicillin] Drug Allergy 3 Cutaneous eruption (morphologic abnormality), Rash [facility] (20 sources) Naproxen; Translations: [naproxen] Drug Allergy Nausea (finding), Nausea Only [facility] Chao Medications Current Medications Medication [...] Inhalation, q6hr Wheezing, 100 EA, Refill(s) 2, [facility] [id number], 165, cm, 07/07/22 9:42:00 EST, Height/Length Dosing, 98, kg, 07/07/22 9:42:00 EST, Weight Dosing 0 08/31/2022 Active Start: 08-31-2022 albuterol 0.08 3% Inh Robyn 3 mL 0.083% - 3mL dosing units, Inhalation, q6hr Wheezing, 100 EA, Refill(s) 2, [id number], 165, cm, 07/07/22 9:42:00 EST, Height/Length Dosing, 98, kg, 07/07/22 9:42:00 EST, Weight Dosing Start Date: 08/31/22 Status: Ordered Start: 03-10-2021 take 2.5 mg by inhal ation every six hours as needed for wheezing albuterol 0.083% Inh Robyn 3 mL UD 2.5 mg = 3 mL, Inhalation, q6hr, PRN for wheezing, # 100 EA, Refills(s) 2, [facility], 154.1, cm, 05/08/20 8:25:00 EDT, Height/Length Dosing Start Date: 03/10/21 Status: Ordered Start: 03-10-2021 take 2 puff(s) by in halation four times daily for wheezing ProAir HFA 90 mcg/inh inhalation aerosol 2 puff(s), Inhalation, QID for wheezing, 1 EA, Refill(s) 2, [facility], 154.1, cm, 05/08/20 8:25:00 EDT, Height/Length Dosing Start Date: 03/10/21 Status: Ordered Start: 03-10-2021 take 2.5 mg by inhal ation every six hours as needed for wheezing albuterol 0.083% Inh Robyn 3 mL UD 2.5 mg = 3 mL, Inhalation, q6hr, PRN for wheezing, # 100 EA, Refills(s) 2, Pharmacy: [facility], 154.1, cm, 05/08/20 8:25:00 EDT, Height/Length Dosing Start Date: 03/10/21 Status: Ordered Albuterol (Eqv-ProAir HFA) 90 mcg/inh inhalation aerosol (20 sources) Start: 07-05-2023 End: 06-29-2024 take 2 puff(s) by inhalation four times daily Albuterol (Eqv-ProAir HFA) 90 mcg/inh inhalation aerosol 2 puff(s), Inhalation, QID Wheezing for 90 day(s), 18 gm, Refill(s) 3, [facility] [id number], 170, cm, 07/05/23 12:11:00 EST, Height/Length Dosing, 98.6, kg, 07/05/23 12:11:00 EST, Weight Dosing Start Date: 07/05/23 Stop Date: 06/29/24 Status: Ordered Start: 09-20-2022 take 2 puff(s) by in halation four times daily Albuterol (Eqv-ProAir HFA) 90 mcg/inh inhalation aerosol 2 puff(s), Inhalation, QID Wheezing, 1 EA, Refill(s) 2, [facility] [id number], 165, cm, 09/20/22 10:56:00 EDT, Height/Length Dosing, [...] day(s), # 6 tab(s), Refills(s) 0, Pharmacy: [facility] [id number], 170, cm, 07/05/23 12:11:00 EST, Height/Length Dosing, 98.6, kg, 07/05/23 12:11:00 EST, Weight Dosing Start Date: 07/05/23 Stop Date: 07/10/23 Status: Ordered Start: 09-20-2022 End: 09-25-2022 azithromycin 250 mg Tab = 1 packet(s), Oral, As Directed, as directed on package labeling, X 5 day(s), # 6 tab(s), Refills(s) 0, Pharmacy: [facility] [id number], 165, cm, 09/20/22 10:56:00 EDT, Height/Length Dosing, 98, kg, 07/07/22 9:42:00 EST, Weight Dosing Start Date: 09/20/22 Stop Date: 09/25/22 Status: Ordered budesonide 0.25 mg/ml inhalation suspension (20 sources) Corticosteroid Start: 09-20-2022 take 0.5 mg by inhalation twice daily budesonide 0.5 mg/2 mL Inh Susp 0.5 mg = 2 mL, NEB, BID, # 90 EA, Refills(s) 1, Pharmacy: [facility] [id number], 165, cm, 09/20/22 10:56:00 EDT, Height/Length Dosing, 98, kg, 07/07/22 9:42:00 EST, Weight Dosing Start Date: 09/20/22 Status: Ordered Start: 03-10-2021 take 0.5 mg by inhal ation once daily budesonide 0.5 mg/2 mL Inh Susp 0.5 mg = 2 mL, NEB, Daily, # 90 EA, Refills(s) 1, Pharmacy: [facility] 518, 154.1, cm, 05/08/20 8:25:00 EDT, Height/Length Dosing Start Date: 03/10/21 Status: Ordered Start: 03-10-2021 take 0.5 mg by inhal ation once daily budesonide 0.5 mg/2 mL Inh Susp 0.5 mg = 2 mL, NEB, Daily, # 90 EA, Refills(s) 1, Pharmacy: [facility] 518, 154.1, cm, 05/08/20 8:25:00 [...] Daily, # 90 tab(s), Refills(s) 3, Pharmacy: [facility] [id number], 170, cm, 01/02/24 10:45:00 EDT, Height/Length Dosing, 106, kg, 01/02/24 10:45:00 EDT, Weight Dosing Start Date: 01/02/24 Status: Ordered clindamycin 300 mg oral capsule (20 sources) Lincosamide Antibacterial Start: 07-14-2022 clindamycin 300 mg oral cap 2 cap, Oral, Once, take 1 hr prior to procedure, # 2 cap(s), Refills(s) 1, Pharmacy: [facility] [id number], 165, cm, 07/07/22 9:42:00 EST, Height/Length Dosing, 98, kg, 07/07/22 9:42:00 EST, Weight Dosing Start Date: 07/14/22 Status: Ordered Start: 07-14-2022 take 1 capsule by [facility] every six hours clindamycin 300 mg oral cap 300 mg = 1 cap(s), Oral, q6hr, 1 hour before procedure, # 2 cap(s), Refills(s) 1, Pharmacy: [facility] [id number], 170, cm, 07/05/23 12:11:00 EST, Height/Length Dosing, [...] tablet (20 sources) Serotonin Reuptake Inhibitor Start: 01-15-2024 take 1 tablet by mouth once daily escitalopram 20 mg Tab 20 mg = 1 tab(s), Oral, Daily, # 90 tab(s), Refills(s) 3, Pharmacy: [facility] [id number], 170, cm, 01/02/24 10:45:00 EDT, Height/Length Dosing, 106, kg, 01/02/24 10:45:00 EDT, Weight Dosing Start Date: 01/15/24 Status: Ordered Start: 08-15-2022 take 1 tablet by chacha th once daily escitalopram 20 mg Tab 20 mg = 1 tab(s), Oral, Daily, # 90 tab(s), Refills(s) 3, Pharmacy: [facility] [id number], 170, cm, 08/14/23 10:53:00 EST, Height/Length Dosing, 101.7, kg, 08/14/23 10:53:00 EST, Weight Dosing Start Date: 10/03/23 Status: Ordered Start: 03-28-2022 take 1 tablet by chacha th once daily escitalopram 20 mg Tab 20 mg = 1 tab(s), Oral, Daily, # 90 tab(s), Refills(s) 1, Pharmacy: [facility] [id number], 162, cm, 01/18/22 11:03:00 EDT, Height/Length Dosing, 97, kg, 01/18/22 11:03:00 EDT, Weight Dosing Start Date: 03/28/22 Status: Ordered Start: 12-31-2021 take 1 tablet by chacha th once daily escitalopram 20 mg Tab 20 mg = 1 tab(s), Oral, Daily, # 90 tab(s), Refills(s) 1, Pharmacy: [facility] 320, 162, cm, 12/17/21 9:05:00 EDT, Height/Length Dosing, 96, kg, 12/17/21 9:05:00 EDT, Weight Dosing Start Date: 12/31/21 Status: Ordered Start: 09-27-2021 take 1 tablet by [facility] once daily escitalopram 20 mg Tab 20 mg = 1 tab(s), Oral, Daily, # 90 tab(s), Refills(s) 1, [facility], 154.1, cm, 07/30/21 14:24:00 EST, Height/Length Dosing, 90.5, kg, 07/30/21 14:24:00 EST, Weight Dosing Start Date: 09/27/21 Status: Ordered famotidine 40 mg oral tablet (2 sources) Histamine-2 Receptor Antagonist Start: 04-13-2020 take 1 tablet by mouth once daily at bedtime famotidine 40 mg Tab 40 mg = 1 tab(s), Oral, Once a day (at bedtime), # 30 tab(s), Refills(s) 0, Pharmacy: [facility] 320, 154.1, cm, 04/13/20 12:32:00 EDT, Height/Length [...] Date: 11/14/18 Status: Ordered Flonase 0.05 mg/inh [place] (13 sources) Start: 11-21-2018 take 2 spray(s) nasal route once daily Flonase 0.05 mg/inh [place] 2 spray(s), Nasal, Daily, 16 gram, Refill(s) 0, each nostril, [facility] 320 Start Date: 11/21/18 Status: Ordered fluticasone propionate 0.05 mg/actuat metered dose nasal spray (20 sources) Corticosteroid Start: 11-21-2018 take 2 spray(s) nasal route once daily Flonase 0.05 mg/inh [place] 2 spray(s), Nasal, Daily, 16 gram, Refill(s) 0, each nostril, [facility] Start Date: 11/21/18 Status: Ordered gabapentin 300 mg oral capsule (20 sources) Anti-epileptic Agent Start: 03-14-2023 take 1 capsule by mouth three times daily gabapentin 300 mg Cap 300 mg = 1 cap(s), Oral, TID, # 90 cap(s), Refills(s) 3, Pharmacy: [facility] [id number], 165, thierno, 11/24/22 13:54:00 EDT, Height/Length Dosing, 97, kg, 11/24/22 13:54:00 EDT, Weight Dosing Start Date: 03/14/23 Status: Ordered Start: 02-10-2023 take 1 capsule by [facility] three times daily gabapentin 300 mg Cap 300 mg = 1 cap(s), Oral, TID, # 90 cap(s), Refills(s) 0, Pharmacy: [facility] [id number], 165, thierno, 11/24/22 13:54:00 EDT, Height/Length Dosing, 97, kg, 11/24/22 13:54:00 EDT, Weight Dosing Start Date: 02/10/23 Status: Ordered Start: 01-11-2023 take 1 capsule by [facility] three times daily gabapentin 100 mg Cap 100 mg = 1 cap(s), Oral, TID, # 90 cap(s), Refills(s) 0, Pharmacy: [facility] [id number], 165thierno, 11/24/22 13:54:00 EDT, Height/Length Dosing, 97, kg, [...] itching, # 360 tab(s), Refills(s) 3, Pharmacy: [facility] [id number], 170, cm, 01/02/24 10:45:00 EDT, Height/Length Dosing, 106, kg, 01/02/24 10:45:00 EDT, Weight Dosing Start Date: 01/02/24 Status: Ordered Start: 03-28-2022 take 1 tablet by chacha th four times daily as needed hydrOXYzine hydrochloride 25 mg Tab 25 mg = 1 tab(s), Oral, QID, PRN as needed for itching, # 360 tab(s), Refills(s) 1, Pharmacy: [facility] [id number], 162, cm, 01/18/22 11:03:00 EDT, Height/Length Dosing, 97, kg, 01/18/22 11:03:00 EDT, Weight Dosing Start Date: 03/28/22 Status: Ordered Start: 09-27-2021 take 1 tablet by chacha th four times daily as needed hydrOXYzine hydrochloride 25 mg Tab 25 mg = 1 tab(s), Oral, QID, PRN as needed for itching, # 360 tab(s), Refills(s) 0, Pharmacy: [facility] 518, 154.1, cm, 07/30/21 14:24:00 EST, Height/Length [...] qPM, # 90 tab(s), Refills(s) 3, Pharmacy: [facility] [id number], 170, cm, 01/02/24 10:45:00 EDT, Height/Length Dosing, 106, kg, 01/02/24 10:45:00 EDT, Weight Dosing Start Date: 01/02/24 Status: Ordered Start: 09-27-2021 take 1 tablet by chacha th once daily in the evening Singulair 10 mg Tab 10 mg = 1 tab(s), Oral, qPM, # 90 tab(s), Refills(s) 1, Pharmacy: [facility] 518, 154.1, cm, 07/30/21 14:24:00 EST, Height/Length [...] Date: 03/22/21 Status: Ordered polyethylene glycol 3350 829252 mg / potassium chloride 1480 mg / sodium bicarbonate 5720 mg / sodium chloride 16462 mg powder for oral solution (1 source) Osmotic Laxative Start: 06-27-2022 take 1 dose by mouth once NuLYTELY [place] oral powder for reconstitution See Instructions, 1 EA, Refill(s) 0, Per physcisians instructions prior to colonoscopy, [facility] [id number], 165, cm, 06/27/22 14:23:00 EST, Height/Length Dosing, [...] days., # 18 tab(s), Refills(s) 0, Pharmacy: [facility] [id number], 170, cm, 07/05/23 12:11:00 EST, Height/Length Dosing, 98.6, kg, 07/05/23 12:11:00 EST, Weight Dosing Start Date: 07/05/23 Status: Ordered Start: 08-18-2022 predniSONE 20 mg Tab See Instructions, 3 po daily x 2 days then 2 po daily x 2 days then 1po daily x 2 days, # 18 tab(s), Refills(s) 0, Pharmacy: [facility] 320, 165, cm, 07/07/22 9:42:00 EST, Height/Length Dosing, 98, kg, 07/07/22 9:42:00 EST, Weight Dosing Start Date: 08/18/22 Status: Ordered Start: 03-28-2022 End: 04-02-2022 take 2 tablets by mouth once daily predniSONE 20 mg Tab 40 mg = 2 tab(s), Oral, Daily, X 5 day(s), # 10 tab(s), Refills(s) 0, Pharmacy: [facility] 320, 162, cm, 01/18/22 11:03:00 EDT, Height/Length Dosing, 97, kg, 01/18/22 11:03:00 EDT, Weight Dosing Start Date: 03/28/22 Stop Date: 04/02/22 Status: Ordered Start: 12-09-2021 predniSONE 20 mg Tab See Instructions, 3 po daily x 2 days then 2 po daily x 2 days then 1po daily x 2 days, # 18 tab(s), Refills(s) 0, Pharmacy: [facility] 320, 163, cm, 12/09/21 14:21:00 EDT, Height/Length Dosing, 95, kg, 11/19/21 15:23:00 EDT, Weight Dosing Start Date: 12/09/21 Status: Ordered Start: 07-12-2021 predniSONE 20 mg Tab See Instructions, 3 po daily x 3 days then 2 po daily x 3 days then 1po daily x 3 days, # 18 tab(s), Refills(s) 0, Pharmacy: [facility] 518, 154.1, cm, 05/08/20 8:25:00 EDT, Height/Length Dosing Start Date: 07/12/21 Status: Ordered ProAir HFA 90 mcg/inh inhalation aerosol (20 sources) Start: 03-10-2021 take 2 puff(s) by inhalation four times daily for wheezing ProAir HFA 90 mcg/inh inhalation aerosol 2 puff(s), Inhalation, QID for wheezing, 1 EA, Refill(s) 2, [facility] 518, 154.1, cm, 05/08/20 8:25:00 EDT, Height/Length Dosing Start Date: 03/10/21 Status: Ordered Triamcinolone (4 sources) Corticosteroid Start: 08-31-2020 triamcinolone Top 0.1% Crm 30 gram 1 pete, Topical, BID, 30 gram, Refill(s) 1, [facility] 320, 154.1, cm, 05/08/20 8:25:00 EDT, Height/Length [...] (20 sources) Onychomycosis of toenails 11-24-2022 Episodic Neoplasms of unspecified nature or uncertain behavior (1 source) Neoplastic disease; Translations: [Neoplasm of unspecified behavior of bone, soft tissue, and skin] Onset: 4 Episodic Nutritional deficiencies (20 sources) Cobalamin deficiency [...] Chronic Other nutritional; endocrine; and metabolic disorders (6 sources) Obese class II; Translations: [Body mass [...] Test Name Value Interpretation Reference Range Facil nimay Family Medicine Office/Clini c Noteon 03-05-2024 Family Medicine Office/Clinic Note Family Medicine Office/Clinic Note Chief Complaint c/o knot behind R knee HPI Staff C/O: Onset: after knee replacement Location: R knee Symptoms: feels tight OTC: History of Present Illness I have reviewed staff HPI and it is correct. A 68-year-old female here for concerns regarding a mass behind the right knee. I was contacted by [facility] regarding the patient's MRI results, with concern of a small soft tissue mass growing off the nerve sheath near the right soleus as well. She is accompanied by her . The patient reports that her right foot appears to be healing well, but she experiences pain when putting on a boot. She is concerned regarding the straightness of her toe. She has been seeing Dr. Warner and had advised her to seek treatment in [place], [place]. The mass occasionally causes pain, but she manages it well. She has already undergone an ultrasound and an MRI. The mass, which appeared after her knee replacement surgery in 12/2021, has consistently felt tight. She developed significant swelling in her right leg when she followed up with her vascular doctor. She experiences sharp pain that radiates to her foot, and numbness in her entire foot, including the little toe. She prefers to go to [facility] for further evaluation. Additionally, she has a bunion on her left foot. She is seeing a different doctor for her sciatic nerve issues, with whom she has an appointment next month. She denies any other upcoming specialty appointments. Patient has no other questions or concerns at this time. Review of Systems PHQ Score Initial Depression Screen Score: 0 SCORE All negative except as noted in the HPI. Physical Exam Vitals & Measurements T: 36.6 ?C(Temporal Artery) HR: 73(Peripheral) RR: 16 SpO2: 99% HT: 67 in HT: 170 cm General: Obese female, well hydrated in no acute distress Eyes: EOMI, conjunctiva and sclera are clear Ears: No deformity or lesion of external ear. Hearing grossly normal and conversational to speech Lungs: Normal respiratory effort and clear to auscultation Cardio: regular rate and rhythm, no murmur or rub Musculoskeletal: Mild tenderness to palpation of the right lower extremity near the calf muscle. Extremity: Peripheral pulses intact, small 1 cm mass palpable on the back of the R calf inferior to the knee joint. Tender to palpation Neurologic: Grossly normal Skin: No rashes, ulcerations, or suspicious lesions on exposed skin Mental Status: Alert and oriented x3. Normal mood and affect. 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 I did reach out to Dr. Long's office regarding recommendations for further referral as Dr. Warner did not feel comfortable removing this specific type of tumor. The patient to be contacted with recommendations for [facility] later this afternoon once they contact the office back. Encouraged it can take up to a week for the office to reach out for an appointment. 2. BMI 36.0-36.9,adult (Z68.36: Body mass index [BMI] 36.0-36.9, adult) The standard range for ages 18 [...] obesity due to excess calories) See above. Total time spent preparing the chart, conducting of the encounter with the patient and family and time spent documenting, reviewing, and ordering tests was 30 minutes. Patient verbalized understanding and is agreeable to plan and course of treatment. This documentation was completed by voice-activated device and software. Inaccuracies compared to the original dictation of this provider are possible although this document has been overread and corrected. Portions of this record may have been created with voice recognition artificial intelligence software, specifically [employer], [employer] and or [employer]. Substitutions may have occurred due to the inherent limitations of voice recognition and artificial intelligence software. ATTESTATION: This note has been generated by Shahram DOSHI and edited by Sae Boone, [employer] Gatherer/Reviewed by Jaquan OCHOA. 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 Normal [facility] Comment on above: Result Comment: Elec tronically Signed By: Guerita Knapp PA-C\.br\Date and Time Signed: 03/05/24 10:16 EDT\.br\Electronically Co-Signed By: Alondra Last\.br\Date and Time Co-Signed: 03/01/24 18:48 EDT Ambulatory Visit Summaryon 0 03-01-2024 Ambulatory Visit Summary Ambulatory Visit Summary ANGELA ALONZO :1955 Visit Date:03/01/2024 Ambulatory Visit Instructions Your Diagnosis Nerve sheath tumor Your Care Team Attending Physician - Guerita Knapp PA-C Primary Care Physician - Guerita Knapp PA-C This Is Your Medications List [facility] [place], [place] Prescription (Handicapped Parking Placard) albuterol (Albuterol (Eqv-ProAir [...] mg Tab) fluticasone nasal (Flonase 0.05 mg/inh [place]) hydrOXYzine (hydrOXYzine hydrochloride 25 mg Tab) montelukast (Singulair 10 mg Tab) omega-3 polyunsaturated fatty acids (Fish Oil 500 mg oral capsule) Procedures Performed Colonoscopy (07/07/2022), Total knee arthroplasty (01/03/2022), Cardiac catheterization, left heart (12/17/2021), left needle localized breast biopsy (08/22/2012), Breast biopsy and related procedures (01/2002), HEEL SPUR REMOVAL. Discharge Vitals Temperature (Temporal Artery) 36.6 ?C Heart Rate (Peripheral) 73 Respiratory Rate 16 Height 170 cm Height 67 in What to do next Scheduled Follow-Up Appointments Monday 10:40 AM EDT Where: [facility] [facility] [address] [place] [address]- Monday 9:30 AM EST Where: [facility] [address] [place] [address]- Medications What How Much When Instructions Unchanged albuterol (Albuterol (Eqv-ProAir HFA) 90 mcg/ inh inhalation aerosol) 2 Puffs Inhalation 4 times a day as needed for Wheezing Duration: 90 Days Unchanged albuterol (albuterol 0.083% Inh Robyn 3 mL) 0.083% - 3mL dosing units Inhalation Every 6 hours as needed for Wheezing Unchanged ascorbic acid (Vitamin C 500 mg oral tablet, chewable) 1 Tablets Chewed Every day Unchanged budesonide (budesonide 0.5 mg/ 2 mL Inh Susp) 2 Milliliter Nebulized inhalation (aerosol) 2 times a day Unchanged calcium-vitamin D (calcium-vitamin D 200 mg-250 intl units oral tablet) 1 Tablets By Mouth 2 times a day Unchanged cetirizine (cetirizine 10 mg Tab) 1 Tablets By Mouth Every day Unchanged cholecalciferol (Vitamin D 1000 intl units Tab) 1 Tablets By Mouth Every day Unchanged clindamycin (clindamycin 300 mg oral cap) 1 Capsules By Mouth Every 6 hours 1 hour before procedure Unchanged escitalopram (escitalopram 20 mg Tab) 1 Tablets By Mouth Every day Unchanged fluticasone nasal (Flonase 0.05 mg/ inh [place]) 2 Sprays Nasal Inhalation Every day each nostril Unchanged hydrOXYzine (hydrOXYzine hydrochloride 25 mg Tab) 1 Tablets By Mouth 4 times a day as needed for as needed for itching Unchanged Misc Prescription (Handicapped Parking Placard) 0 5 year duration Unchanged montelukast (Singulair 10 mg Tab) 1 Tablets By Mouth Once a day (in the evening) Unchanged omega-3 polyunsaturated fatty acids (Fish Oil 500 mg oral capsule) 2 Capsules By Mouth 2 times a day Allergies Anaprox (Nausea) amoxicillin (Rash) codeine (Lightheaded, Nausea with Vomiting) Problems Ongoing - Any problem that you are currently receiving treatment for. Abnormal ECG Allergic rhinitis, seasonal Asthma, moderate persistent B12 nutritional deficiency BMI 34.0-34.9,adult BMI 35.0-35.9,adult BMI 36.0-36.9,adult Diastolic dysfunction without heart failure External hemorrhoids Family history of colon cancer Hyperlipemia, mixed Influenza vaccination declined Moderate recurrent major depression Obesity due to excess calories Onychomycosis of left great toe Other insomnia Perennial allergic rhinitis Right foot pain Sensory peripheral neuropathy Historical - Any problem that you are no longer receiving treatment for. Artificial menopause Atrophic vaginitis Breast cancer screening by mammogram Colon cancer screening COVID-19 vaccine series started Knee pain Lumbar back pain Menopausal syndrome Osteoporosis of lumbar spine Patient Survey You may receive a survey via text or e-mail asking about your office visit. Please share your experience with us by completing your survey. We appreciate your feedback and thank you for choosing us for your care. [facility] Ambulatory Visit Summaryon 0 02-12-2024 Ambulatory Visit Summary Ambulatory Visit Summary ANGELA ALONZO Elvin :1955 Visit Date:02/12/2024 Ambulatory Visit Instructions Your Diagnosis Allergic rhinitis, seasonal Your Care Team Attending Physician - Guerita Knapp PA-C Primary Care Physician - Guerita Knapp PA-C This Is Your Medications List Misc Prescription [...] mg Tab) fluticasone nasal (Flonase 0.05 mg/inh [place]) hydrOXYzine (hydrOXYzine hydrochloride 25 mg Tab) montelukast (Singulair 10 mg Tab) omega-3 polyunsaturated fatty acids (Fish Oil 500 mg oral capsule) Procedures Performed Colonoscopy (07/07/2022), Total knee arthroplasty (01/03/2022), Cardiac catheterization, left heart (12/17/2021), left needle localized breast biopsy (08/22/2012), Breast biopsy and related procedures (01/2002), HEEL SPUR REMOVAL. What to do next Scheduled Follow-Up Appointments Monday 9:30 AM EST Where: [place] [id number] Medications What How Much When Instructions Unchanged albuterol (Albuterol (Eqv-ProAir HFA) 90 mcg/ inh inhalation aerosol) 2 Puffs Inhalation 4 times a day as needed for Wheezing Duration: 90 Days Unchanged albuterol (albuterol 0.083% Inh Robyn 3 mL) 0.083% - 3mL dosing units Inhalation Every 6 hours as needed for Wheezing Unchanged ascorbic acid (Vitamin C 500 mg oral tablet, chewable) 1 Tablets Chewed Every day Unchanged budesonide (budesonide 0.5 mg/ 2 mL Inh Susp) 2 Milliliter Nebulized inhalation (aerosol) 2 times a day Unchanged calcium-vitamin D (calcium-vitamin D 200 mg-250 intl units oral tablet) 1 Tablets By Mouth 2 times a day Unchanged cetirizine (cetirizine 10 mg Tab) 1 Tablets By Mouth Every day Unchanged cholecalciferol (Vitamin D 1000 intl units Tab) 1 Tablets By Mouth Every day Unchanged clindamycin (clindamycin 300 mg oral cap) 1 Capsules By Mouth Every 6 hours 1 hour before procedure Unchanged escitalopram (escitalopram 20 mg Tab) 1 Tablets By Mouth Every day Unchanged fluticasone nasal (Flonase 0.05 mg/ inh [place]) 2 Sprays Nasal Inhalation Every day each nostril Unchanged hydrOXYzine (hydrOXYzine hydrochloride 25 mg Tab) 1 Tablets By Mouth 4 times a day as needed for as needed for itching Unchanged Misc Prescription (Handicapped Parking Placard) 0 5 year duration Unchanged montelukast (Singulair 10 mg Tab) 1 Tablets By Mouth Once a day (in the evening) Unchanged omega-3 polyunsaturated fatty acids (Fish Oil 500 mg oral capsule) 2 Capsules By Mouth 2 times a day Medications and Immunizations Administered Given Patient Specific Meds, 0.5 mL, SubCutaneous. For: Allergic rhinitis, seasonal Allergies Anaprox (Nausea) amoxicillin (Rash) codeine (Lightheaded, Nausea with Vomiting) Problems Ongoing - Any problem that you are currently receiving treatment for. Abnormal ECG Allergic rhinitis, seasonal Asthma, moderate persistent B12 nutritional deficiency BMI 34.0-34.9,adult BMI 35.0-35.9,adult BMI 36.0-36.9,adult Diastolic dysfunction without heart failure External hemorrhoids Family history of colon cancer Hyperlipemia, mixed Influenza vaccination declined Moderate recurrent major depression Obesity due to excess calories Onychomycosis of left great toe Other insomnia Perennial allergic rhinitis Right foot pain Sensory peripheral neuropathy Historical - Any problem that you are no longer receiving treatment for. Artificial menopause Atrophic vaginitis Breast cancer screening by mammogram Colon cancer screening COVID-19 vaccine series started Knee pain Lumbar back pain Menopausal syndrome Osteoporosis of lumbar spine Patient Survey You may receive a survey via text or e-mail asking about your office visit. Please share your experience with us by completing your survey. We appreciate your feedback and thank you for choosing us for your care. [facility] Ambulatory Visit Summaryon 0 01-29-2024 Ambulatory Visit Summary Ambulatory Visit Summary ANGELA ALONZO :1955 Visit Date:01/29/2024 Ambulatory Visit Instructions Your Diagnosis Allergic rhinitis, seasonal Your Care Team Attending Physician - Guerita Knapp PA-C Primary Care Physician - Guerita Knapp PA-C. This Is Your Medications List Misc Prescription [...] mg Tab) fluticasone nasal (Flonase 0.05 mg/inh [place]) hydrOXYzine (hydrOXYzine hydrochloride 25 mg Tab) montelukast (Singulair 10 mg Tab) omega-3 polyunsaturated fatty acids (Fish Oil 500 mg oral capsule) Procedures Performed Colonoscopy (07/07/2022), Total knee arthroplasty (01/03/2022), Cardiac catheterization, left heart (12/17/2021), left needle localized breast biopsy (08/22/2012), Breast biopsy and related procedures (01/2002), HEEL SPUR REMOVAL. What to do next Scheduled Follow-Up Appointments Monday 9:30 AM EST Where: [facility] [place] [facility] Family Medicine Office/Clini c Noteon 01-07-2024 Family Medicine Office/Clinic Note Family Medicine Office/Clinic Note Chief Complaint Patient presents today for surgical clearance, Giorgio trevino [facility] Staff Date of Procedure: 01/24/24 Surgeon: Dr. [...] She is scheduled for an MRI at [facility] on 01/05/2024 at 6:45 a.m. She [...] (Z01.818: E (more content not included)... [facility] Comment on above: Result Comment: Elec tronically Signed By: Guerita Knapp PA-C\.br\Date and Time Signed: 01/07/24 21:36 EDT\.br\Electronically Co-Signed By: Sonia Jane.br\Date and Time Co-Signed: 01/02/24 14:04 EDT Ambulatory [...] oral cap) fluticasone nasal (Flonase 0.05 mg/inh [place]) omega-3 polyunsaturated fatty acids (Fish Oil 500 [...] Follow-Up Appointments Monday 10:40 AM EDT Where: [facility] [address] [place] [address]- \.br\ You Need to Schedule the Following Appointments\.br\ Follow Up with Knapp PA-C, Guerita E. When: In 6 months\.br\ Comments:\.br\ For check up\.br\ Where:\.br\ [address]br\ [place] [address]-\.br\ [phone]\.br\ Medications\.br\ What How Much When Instructions\.br\ Unchanged cetirizine (cetirizine 10 mg Tab) 1 Tablets By Mouth Every day Pickup at [facility] [id number]\.br\ Unchanged escitalopram (escitalopram 20 mg Tab) 1 Tablets By Mouth Every day\.br\ Unchanged hydrOXYzine (hydrOXYzine hydrochloride 25 mg Tab) 1 Tablets By Mouth 4 times a day as needed for as needed for itching Pickup at [facility] [id number]\.br\ Unchanged montelukast (Singulair 10 mg Tab) 1 Tablets By Mouth Once a day (in the evening) Pickup at [facility] [id number]\.br\ Unchanged albuterol (Albuterol (Eqv-ProAir HFA) 90 mcg/ [...] Unchanged fluticasone nasal (Flonase 0.05 mg/ inh [place]) 2 Sprays Nasal Inhalation Every day each nostril Contact prescribing physician if questions or concerns \.br\ Unchanged Misc Prescription (Handicapped Parking Placard) 0 5 year duration Contact prescribing physician if questions or concerns \.br\ Unchanged omega-3 polyunsaturated fatty acids (Fish Oil 500 mg oral capsule) 2 Capsules By Mouth 2 times a day Contact prescribing physician if questions or concerns \.br\ Pharmacy Information\.br\ [facility] [id number]: [address] [place], [place] [phone]\.br\ Allergies\.br\ Anaprox (Nausea)\.br\ amoxicillin (Rash)\.br\ codeine (Lightheaded, [...] and frozen vegetables.\.br\ ? \.br\ Avoid buying yjnmi-oa-dcf foods, such as pre-cut fruits and vegetables and pre-made salads.\.br\ ? \.br\ If possible, shop around to discover where you can find the best prices. Consider other retailers such as dollar stores, larger wholesale stores, local fruit and vegetable [place], and Rol[employer] markets.\.br\ ? \.br\ Do not shop when [...] instead of beef.\.br\ ? \.br\ Choose [facility] BMPon 01-02-2024 Anion gap [Moles/Vol] 10 mmol/L Normal 6-16 [facility] Comment on above: Performed By: #### 2 [id number] #### [facility] [address] [place] [address] Calcium [Mass/Vol] 10.2 mg/dL Normal 8.9-11.1 [facility] Comment on above: Performed By: #### 2 [id number] #### [facility] [address] [place] [address] Chloride [Moles/Vol] 105 mmol/L Normal 101-111 [facility] Comment on above: Performed By: #### 2 [id number] #### [facility] [address] [place] [address] CO2 [Moles/Vol] 27 mmol/L Normal 21-31 [facility] Comment on above: Performed By: #### 2 [id number] #### [facility] [address] [place] [address] Creatinine [Mass/Vol] 0.7 mg/dL Normal 0.5-1.3 [facility] Comment on above: Performed By: #### 2 [id number] #### [facility] [address] [place] [address] Glucose [Mass/Vol] 77 mg/dL Normal 55-199 [facility] Comment on above: Performed By: #### 2 [id number] #### [facility] [address] [place] [address] Potassium [Moles/Vol] 4.0 mmol/L Normal 3.5-5.3 [facility] Comment on above: Performed By: #### 2 684410 #### [facility] [address] [place] [address] Sodium [Moles/Vol] 138 mmol/L Normal 135-145 [facility] Comment on above: Performed By: #### 2 [id number] #### [facility] [address] [place] [address] Urea nitrogen [Mass/Vol] 16 mg/dL Normal 5-21 [facility] Comment on above: Performed By: #### 2 [id number] #### [facility] [address] [place] [address] Urea nitrogen/Creatinine [Mass ratio] 23 No Units High 10-20 [facility] Comment on above: Performed By: #### 2 [id number] #### [facility] [address] [place] [address] CBC w/ Auto Diffon 01-01- 4 Basophils/100 WBC (Bld) 0.8 % Normal 0.0-2.0 [facility] Comment on above: Performed By: #### 2 [id number] #### [facility] [address] [place] [address] Basophils/Leukocytes Auto (Bld) [Pure # fraction] 0.1 E9/L Normal 0.0-0.2 [facility] Comment on above: Performed By: #### 2 505103 #### [facility] [address] [place] [address] Eosinophils (Bld) [#/Vol] 0.2 E9/L Normal 0.0-0.5 [facility] Comment on above: Performed By: #### 2 [id number] #### [facility] [address] [place] [address] Eosinophils/100 WBC (Bld) 2.6 % Normal 0.0-8.0 [facility] Comment on above: Performed By: #### 2 678703 #### [facility] [address] [place] [address] Erythrocyte distribution width (RBC) [Ratio] 13.4 % Normal 10.9-14.2 [facility] Comment on above: Performed By: #### 2 [id number] #### [facility] [address] [place] [address] Hematocrit (Bld) [Volume fraction] 42.1 % Normal 34.0-46.0 [facility] Comment on above: Performed By: #### 2 167099 #### [facility] [address] [place] [address] Hemoglobin (Bld) [Mass/Vol] 14.4 g/dL Normal 12.0-16.0 [facility] Comment on above: Performed By: #### 2 651145 #### [facility] [address] [place] [address] Lymphocytes (Bld) [#/Vol] 1.9 E9/L Normal 1.0-4.0 [facility] Comment on above: Performed By: #### 2 482355 #### [facility] [address] [place] [address] Lymphocytes/100 WBC (Bld) 30.4 % Normal 14.0-50.0 [facility] Comment on above: Performed By: #### 2 849828 #### [facility] [address] [place] [address] MCH (RBC) [Entitic mass] 31.0 pg Normal 27.0-34.0 [facility] Comment on above: Performed By: #### 2 [id number] #### [facility] [address] [place] [address] MCHC (RBC) [Mass/Vol] 34.3 g/dL Normal 31.4-36.0 [facility] Comment on above: Performed By: #### 2 280551 #### [facility] [address] [place] [address] MCV (RBC) [Entitic vol] 90.4 fL Normal 80.0-100.0 [facility] Comment on above: Performed By: #### 2 258036 #### [facility] [address] [place] [address] Monocytes (Bld) [#/Vol] 0.8 E9/L Normal 0.2-1.0 [facility] Comment on above: Performed By: #### 2 897947 #### [facility] [address] [place] [address] Neutrophils (Bld) [#/Vol] 3.4 E9/L Normal 2.0-7.5 [facility] Comment on above: Performed By: #### 2 212602 #### [facility] [address] [place] [address] Neutrophils/100 WBC (Bld) 53.3 % Normal 36.0-75.0 [facility] Comment on above: Performed By: #### 2 536756 #### [facility] [address] [place] [address] Platelet 272.0 E9/L Normal 150.0-500.0 [facility] Comment on above: Performed By: #### 2 659784 #### [facility] [address] [place] [address] Platelet mean volume (Bld) [Entitic vol] 9.8 fL Normal 6.4-10.8 [facility] Comment on above: Performed By: #### 2 543261 #### [facility] [address] [place] [address] RBC (Bld) [#/Vol] 4.7 E12/L Normal 4.3-5.9 [facility] Comment on above: Performed By: #### 2 486540 #### [facility] [address] [place] [address] WBC corrected for nucl RBC Auto (Bld) [#/Vol] 6.4 E9/L Normal 4.0-11.0 [facility] Comment on above: Performed By: #### 2 476888 #### [facility] [address] [place] [address] CHEMISTRYOrdered By: SYSTEM SYSTEM on 01-02-2024 Anion [...] fruits, and frozen vegetables. ? Avoid buying ophsi-di-tfa foods, such as pre-cut fruits and vegetables and pre-made salads. ? If possible, shop around to discover where you can find the best prices. Consider other retailers such as [employer] stores, larger wholesale stores, local fruit and vegetable [place], and [employer] markets. ? Do not shop when you [...] for buyi (more content not included)... [facility] Physician Orderon 01-02-2024 Physician Order [id number] 615#1.00TIFF [facility] eGFRon 01-02-2024 eGFR 94 mL/min/1.73 m2 Normal >=59 [facility] Comment on above: Order Comment: Order added by Discern Expert. Performed By: #### 1 [id number] #### [facility] [address] [place] [address] Nurse Consultation Noteon Nurse Consultation Note Reason [...] 2 cap(s), Oral, BID Flonase 0.05 mg/inh [place], 2 spray(s), Nasal, Daily gabapentin 300 mg [...] 09/08/2020 Recorded pneumococcal 23-valent vaccine 04/07/2005 Recorded [facility] Physician Orderon 12-29-2023 Physician Order [id number] 8#1.00TIFF [facility] Formson 12-18-2023 Forms [id number] E6#1.00TIFF [facility] Nurse Consultation Noteon Nurse Consultation [...] 2 cap(s), Oral, BID Flonase 0.05 mg/inh [place], 2 spray(s), Nasal, Daily gabapentin 300 mg [...] Recorded pneumococcal 23-valent vaccine 04/07/2005 Recorded [facility] Nurse Consultation Noteon Nurse Consultation Note [...] 2 cap(s), Oral, BID Flonase 0.05 mg/inh [place], 2 spray(s), Nasal, Daily gabapentin 300 mg [...] pneumococcal 23-valent vaccine 04/07/2005 Recorded Normal [facility] Nurse Consultation Noteon Nurse Consultation Note [...] 2 cap(s), Oral, BID Flonase 0.05 mg/inh [place], 2 spray(s), Nasal, Daily gabapentin 300 mg [...] Recorded pneumococcal 23-valent vaccine 04/07/2005 Recorded [facility] Nurse Consultation Noteon Nurse Consultation Note [...] 2 cap(s), Oral, BID Flonase 0.05 mg/inh [place], 2 spray(s), Nasal, Daily gabapentin 300 mg [...] Recorded pneumococcal 23-valent vaccine 04/07/2005 Recorded Normal [facility] Mamm Screen w/CAD if perf and 3D [...] very important to your health. The current [employer] and National Comprehensive Cancer [...] 2-Benign finding Recommendation: Normal interval follow-up [facility] Consent for Treatmenton 10-08 Consent for Treatment [id number] D1#1.00TIFF [facility] Nurse Consultation Noteon Nurse Consultation Note [...] 2 cap(s), Oral, BID Flonase 0.05 mg/inh [place], 2 spray(s), Nasal, Daily gabapentin 300 mg [...] Recorded pneumococcal 23-valent vaccine 04/07/2005 Recorded [facility] Ambulatory Visit Summaryon 0 10-02-2023 Ambulatory Visit Summary ANGELA ALONZO :1955 Visit Date:10/02/2023 Ambulatory Visit Instructions Your Care Team Attending Physician - Guerita Knapp PA-C Primary Care Physician - Guerita Knapp PA-C This Is Your Medications List [facility] [place] [place] Prescription (Handicapped Parking Placard) albuterol (Albuterol (Eqv-ProAir [...] mg Tab) fluticasone nasal (Flonase 0.05 mg/inh [place]) gabapentin (gabapentin 300 mg Cap) hydrOXYzine (hydrOXYzine [...] Follow-Up Appointments Monday 10:40 AM EDT [facility] [address] [place] [address]- \.br\ Medications\.br\ What How Much When Instructions\.br\ [...] Unchanged fluticasone nasal (Flonase 0.05 mg/ inh [place]) 2 Sprays Nasal Inhalation Every day each [...] for choosing us for your care.\.br\ \.br\ [facility] Nurse Consultation Noteon Nurse Consultation Note [...] 2 cap(s), Oral, BID Flonase 0.05 mg/inh [place], 2 spray(s), Nasal, Daily gabapentin 300 mg [...] pneumococcal 23-valent vaccine 04/07/2005 Recorded Normal [facility] Nurse Consultation Noteon Nurse Consultation Note [...] 2 cap(s), Oral, BID Flonase 0.05 mg/inh [place], 2 spray(s), Nasal, Daily gabapentin 300 mg [...] pneumococcal 23-valent vaccine 04/07/2005 Recorded Normal [facility] Ambulatory Visit Summaryon 0 09-04-2023 Ambulatory Visit Summary MAGALIE ALONZOORADiane Oconnor :1955 Visit Date:09/04/2023 Ambulatory Visit Instructions Your Diagnosis Allergic rhinitis, seasonal Your Care Team Attending Physician - Guerita Knapp PA-C Primary Care Physician - Guerita Knapp PA-C This Is Your Medications List [facility] [place] [place] Prescription (Handicapped Parking Placard) albuterol (Albuterol (Eqv-ProAir [...] mg Tab) fluticasone nasal (Flonase 0.05 mg/inh [place]) gabapentin (gabapentin 300 mg Cap) hydrOXYzine (hydrOXYzine [...] Follow-Up Appointments Monday 10:40 AM EDT Where: [place] [id number] \.br\ Medications\.br\ What How Much When Instructions\.br\ [...] Unchanged fluticasone nasal (Flonase 0.05 mg/ inh [place]) 2 Sprays Nasal Inhalation Every day each [...] for choosing us for your care.\.br\ \.br\ [facility] Nurse Consultation Noteon Nurse Consultation Note [...] 2 cap(s), Oral, BID Flonase 0.05 mg/inh [place], 2 spray(s), Nasal, Daily gabapentin 300 mg [...] pneumococcal 23-valent vaccine 04/07/2005 Recorded [facility] Provider Letteron 08-23-2023 Provider Letter [address] [place] [address] [phone] August 23, 2023 ANGELA ALONZO [address] [place] [address] : [address] Colindres The above [...] ogist. Thank you, ARMAND Torre, VAUGHN Lopez: [facility] Nurse Consultation Noteon Nurse Consultation [...] 2 cap(s), Oral, BID Flonase 0.05 mg/inh [place], 2 spray(s), Nasal, Daily gabapentin 300 mg [...] Recorded pneumococcal 23-valent vaccine 04/07/2005 Recorded [facility] Physician Referralon 024 Physician Referral [id number] 126#1.00TIFF [facility] Consultation Noteon 08-16-19 24 Consultation Note [id number] 0F#1.00TIFF [facility] Family Medicine Office/Clini c Noteon 08-16-2023 Family Medicine Office/Clinic Note Chief Complaint Surgery Clearance [facility] Staff Preoperative medical evaluation questions for [...] sounds, n (more content not included)... [facility] Comment on above: Result Comment: Elec tronically Signed By: Guerita Knapp PA-C\.br\Date and Time Signed: 08/16/23 21:29 EST\.br\Electronically Co-Signed By: Luzi Crowley\.br\Date and Time Co-Signed: 08/14/23 14:15 EST\.br\Electronically [...] joint her left knee is arthritic with [id number] changes to the medial compartment as well as patellofemoral joint. [facility] Radiology Study observation (narrative) [facility] Consent for Treatmenton Consent for Treatment [id number] 94#1.00TIFF [facility] Consultation Noteon 08-15-19 24 Consultation Note [id number] D2#1.00TIFF [facility] XR Chest 2 Viewson 4 XR [...] Page MD, V. Transcribed by: DP Technologist: DPR Technical Comments Radiation Dose: Ka,r in mGy = na DAP = na [facility] BMPon 08-14-2023 Calcium [Mass/Vol] 9.8 mg/dL Normal 8.9-11.1 [facility] Comment on above: Performed By: #### 1 [id number], [id number], [id number] ####[facility] [address] [place] [address] Chloride [Moles/Vol] 103 mmol/L Normal 101-111 [facility] Comment on above: Performed By: #### 1 [id number], [id number], [id number] ####[place] [address] [place] [address] CO2 [Moles/Vol] 29 mmol/L Normal 21-31 [facility] Comment on above: Performed By: #### 1 [id number], [id number], [id number] ####[address] [address] Creatinine [Mass/Vol] 0.8 mg/dL Normal 0.5-1.3 [facility] Comment on above: Performed By: #### 1 [id number], [id number], 8461748 ####[address] [address] Glucose [Mass/Vol] 79 mg/dL Normal 55-199 [facility] Comment on above: Performed By: #### 1 [id number], 4011108, 6608929 ####[address] [address] Potassium [Moles/Vol] 4.2 mmol/L Normal 3.5-5.3 [facility] Comment on above: Performed By: #### 1 [id number], 7174799, 0751253 ####[address] [address] Sodium [Moles/Vol] 138 mmol/L Normal 135-145 [facility] Comment on above: Performed By: #### 1 9730129, 5107251, 5470126 ####[address] [address] Urea nitrogen [Mass/Vol] 17 mg/dL Normal 5-21 [facility] Comment on above: Performed By: #### 1 3865249, 9524349, 7836896 ####[address] [address] Anion gap [Moles/Vol] 10 mmol/L Normal 6-16 [facility] Comment on above: Performed By: #### 1 [id number], 7704123, 8878357 ####[address] [address] BUN/Creat Ratio 21 No Units High 10-20 [facility] Comment on above: Performed By: #### 1 2871624, 0979227, 9282918 ####[address] [address] CBC w/ Auto Diffon 4 Basophils/100 WBC (Bld) 0.9 % Normal 0.0-2.0 [facility] Comment on above: Performed By: #### 1 5528892, 8624462, 0138722 ####[address] [address] Eosinophils/100 WBC (Bld) 2.4 % Normal 0.0-8.0 [facility] Comment on above: Performed By: #### 1 0753850, 7747578, 9773478 ####[address] [address] Erythrocyte distribution width (RBC) [Ratio] 14.4 % High 10.9-14.2 [facility] Comment on above: Performed By: #### 1 7545142, 7749868, 0326341 ####[address] [address] Hematocrit (Bld) [Volume fraction] 44.0 % Normal 34.0-46.0 [facility] Comment on above: Performed By: #### 1 4294806, 1919080, 4304379 ####[address] [address] Hemoglobin (Bld) [Mass/Vol] 14.3 g/dL Normal 12.0-16.0 [facility] Comment on above: Performed By: #### 1 7630979, 8470325, 6503247 ####[address] [address] Lymphocytes/100 WBC (Bld) 27.6 % Normal 14.0-50.0 [facility] Comment on above: Performed By: #### 1 6614946, 2582468, 7893040 ####[address] [address] MCH (RBC) [Entitic mass] 29.5 pg Normal 27.0-34.0 [facility] Comment on above: Performed By: #### 1 2178506, 7071036, 9613337 ####[address] [address] MCHC (RBC) [Mass/Vol] 32.3 g/dL Normal 31.4-36.0 [facility] Comment on above: Performed By: #### 1 1199273, 0272700, 3860185 ####[address] [address] MCV (RBC) [Entitic vol] 91.5 fL Normal 80.0-100.0 [facility] Comment on above: Performed By: #### 1 8934338, 7650860, 1815671 ####[address] [address] Monocytes/100 WBC (Bld) 11.6 % Normal 4.0-14.0 [facility] Comment on above: Performed By: #### 1 1343043, 9453000, 6654846 ####[address] [address] NEUTRO AUTO 57.5 % Normal 36.0-75.0 [facility] Comment on above: Performed By: #### 1 5102533, 2507181, 8947052 ####[address] [address] Platelet mean volume (Bld) [Entitic vol] 9.7 fL Normal 6.4-10.8 [facility] Comment on above: Performed By: #### 1 1888600, 8433444, 9874973 ####[address] [address] Basophil Absolute 0.1 E9/L Normal 0.0-0.2 [facility] Comment on above: Performed By: #### 1 4798204, 7494081, 9613283 ####[address] [address] Eos Absolute 0.1 E9/L Normal 0.0-0.5 [facility] Comment on above: Performed By: #### 1 6340872, 2813539, 7829536 ####[place] [place] [address] Lymph Absolute 1.6 E9/L Normal 1.0-4.0 [facility] Comment on above: Performed By: #### 1 1484271, 8250372, 4862598 ####[address] [place] [address] [place] Absolute 0.7 E9/L Normal 0.2-1.0 [facility] Comment on above: Performed By: #### 1 3583675, 5303939,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 may need to: ?Drink enough fluid to keep your urine pale yellow. ?Take gzbu-eij-yopxzqy or prescription medicines. ?Eat foods that are [...] provider. Document Revised: 10/30/2020 Document Reviewed: 10/30/2020 True Fit Patient Education 2022 JP3 Measurement. Follow Up Care 08/07/2023 16:27:59 With:Ra MENDES, Guerita Amor. Address: [address] [place] [phone] When: only if needed Comments:Only if needed [facility] [place] 07-05-2023 Hospital Discharge instructions Patient Education 07/05/2023 [...] frozen fruits, and frozen vegetables. Avoid buying kwbng-bi-ost foods, such as pre-cut fruits and vegetables [...] provider. Document Revised: 04/08/2021 Document Reviewed: 04/08/2021 [employer] Patient Education 2022 JP3 Measurement. Follow Up Care 07/04/2023 08:35:54 With:Guerita Knapp PA-C Address: [address] [place] [address] [phone] When: only if needed Comments:Only if needed [facility] 05-10-2023 Hospital Discharge instructions [...] numbers. This can be done either in [place] (U.[place] or metric measurements. Note that charts and online BMI calculators are available to help you find your BMI quickly and easily without having to do these calculations yourself. To calculate your BMI in [place] ([place] measurements: 1.Measure your weight in pounds [...] Centers for Disease Control and Prevention: www.cdc.gov [place] Heart Association: www.heart.org National Heart, Lung, and Blood [place]: www.nhlbi.nih.gov Summary Body mass index (BMI) is a number that is calculated from a person's weight and height. BMI may help estimate how much of a person's weight is composed of fat. BMI can help identify those who may be at higher risk for certain medical problems. BMI can be measured using [place]an measurements or metric measurements. BMI charts are used to identify whether you are underweight, normal weight, overweight, or obese. This information is not intended to replace advice given to you by your health care provider. Make sure you discuss any questions you have with your health care provider. Document Revised: 03/18/2020 Document Reviewed: 01/24/2020 True Fit Patient Education 2022 JP3 Measurement. 05/10/2023 09:06:12 Dyslipidemia Dyslipidemia Dyslipidemia is an [...] quitting, ask your health care provider. Take sell-sbj-tkgakfm and prescription medicines only as told by [...] provider. Document Revised: 08/30/2021 Document Reviewed: 08/30/2021 True Fit Patient Education 2022 JP3 Measurement. 05/10/2023 09:06:07 Insomnia Insomnia Insomnia is a [...] go back to bed. General instructions Take uimo-mcz-lpcvlnq and prescription medicines only as told by [...] the National Suicide Prevention Lifeline at or 188. This is open 24 hours a day. Text the Crisis Text Line at 211523. Summary Insomnia is a sleep disorder that [...] provider. Document Revised: 06/06/2022 Document Reviewed: 06/06/2022 True Fit Patient Education 2022 JP3 Measurement. 05/10/2023 09:06:04 Managing Depression, Adult Managing Depression, [...] pray, or go to a place of methodist. Do some deep breathing. To do this, [...] sugars, or salt (sodium). General instructions Take iezj-jso-hnfuiew and prescription medicines only as told by [...] (ADAA): www.adaa.org Mental Health Su: www.mentalhealthamerica.net National [place] on Mental Illness: www.tyrone.org Contact a health [...] department or: Call your local emergency services (611 in the [place] Call a suicide crisis helpline, such as the National Suicide Prevention Lifeline at or 097 in the U.S. This is open 24 hours a day in the U.[place] Text the Crisis Text Line at 454184 (in the [place] Summary If you are [...] provider. Document Revised: 01/19/2022 Document Reviewed: 05/06/2020 True Fit Patient Education 2022 JP3 Measurement. 05/10/2023 09:05:58 Asthma, Adult Asthma, Adult Asthma [...] breathing (shortness of breath). Excessive nighttime or director of laboratory operations coughing. Chest tightness. Tiredness (fatigue) with minimal [...] condition. Follow these instructions at home: Take fktv-kyh-hqiagdh and prescription medicines only as told by [...] provider. Document Revised: 04/13/2022 Document Reviewed: 04/04/2022 True Fit Patient Education 2022 JP3 Measurement. [facility] [place] 07-07-2022 Hospital Discharge instructions Patient Education 07/07/2022 [...] 03/22/2005 Document Revised: 10/11/2018 Document Reviewed: 10/11/2018 True Fit Patient Education 2020 JP3 Measurement. 07/07/2022 12:57:04 Colonoscopy, Adult, Care After Colonoscopy, [...] a slower pace than normal. ?Eat soft, wrhe-th-yiregn foods. Take pmfp-rzu-nifqzpw or prescription medicines only as told by [...] 02/07/2005 Document Revised: 04/18/2018 Document Reviewed: 09/06/2016 True Fit Patient Education 2020 [employer] Follow Up Care 06/27/2022 14:47:12 With:Nayan Cherry Address:Unknown When: Unknown [facility] 07-07-2022 Evaluation + Plan note Extrac katerine from: Title:Pre-anesthesia - Endoscopy Author:Best Aguilar Jr., DO Date:07/07/22 Plan [place] Society of Anesthesiologists (ASA) physical status classification: Class II. Anesthetic Preoperative Plan Anesthesia: General. . Anesthetic plan, risks, benefits, and alternatives discussed with the patient and/or family. Patient verbalized understanding. Future Appointments Appointment Date:05/10/2023 08:00:00 AM Scheduled Provider: Location:[facility] Appointment Type:FM Medicare Wellness Subsequent Future Scheduled Tests Laboratory* BUN 01/04/22 * Creatinine 01/04/22 * Electrolyte Panel 01/04/22 * CBC w/ Auto Diff 01/04/22 Radiology* CV Cardiovascular 12/13/21 [facility]12[facility]2022 Hospital Discharge instructions Patient Education 06/27/2022 [...] food choices, such as grocery stores and [employer]. What are the signs or symptoms? The [...] and how much exercise you get. Take hxiv-npr-dihpvgi and prescription medicines only as told by [...] 08/03/2005 Document Revised: 02/28/2019 Document Reviewed: 02/28/2019 True Fit Patient Education 2019 JP3 Measurement. [facility] [place] 11-01-2022 Hospital Discharge instructions Patient Education 05/10/2022 [...] your health care provider or diet and heart specialist (dietitian) before starting any calcium supplements. [...] mg per 8 oz serving. Grains Fortified uembv-kr-yrg cereals, 100 1,000 mg per 8 oz serving. Fortified frozen waffles, 200 mg in two waffles. Meats and other proteins Sardines, canned with bones, 325 mg per 3 oz serving. [place], canned with bones, 180 mg per 3 oz serving. Canned shrimp, 125 mg per 3 oz serving. Baked beans, 160 mg per 4 oz serving. Dairy Yogurt, plain, low-fat, 310 mg per 6 oz serving. Milk, 300 mg per 8 oz serving. Mal[place]ian cheese, 195 mg per 1 oz serving. [...] 02/07/2005 Document Revised: 06/19/2018 Document Reviewed: 06/19/2018 True Fit Patient Education 2020 JP3 Measurement. 05/10/2022 08:50:00 Budget-Friendly Healthy Eating Budget-Friendly Healthy [...] frozen fruits, and frozen vegetables. Avoid buying mcvpv-jf-rvo foods, such as pre-cut fruits and vegetables and pre-made salads. If possible, shop around to discover where you can find the best prices. Consider other retailers such as [employer] stores, larger wholesale stores, local fruit and vegetable stands, and Rolith markets. Do not shop when you are [...] 02/27/2015 Document Revised: 06/27/2018 Document Reviewed: 06/27/2018 True Fit Patient Education 2020 [employer]. 05/10/2022 08:49:58 BMI for Adults BMI [...] height. This can be done either in [place] ([place] or metric measurements. Note that charts are available to help you find your BMI quickly and easily without having to do these calculations yourself. To calculate your BMI in [place] ([place] measurements, your health care provider will: [...] medical problems. BMI can be measured using [place]an measurements or metric measurements. To interpret your [...] 03/07/2005 Document Revised: 06/08/2018 Document Reviewed: 05/09/2018 True Fit Patient Education 2020 JP3 Measurement. [facility] 08-15-2022 History of Present illness Narrative* Otis Edward PTA - 02/21/2022 10:30 AM EDT Images from the original note were not included. [facility] Outpatient Physical Therapy Daily Note Date: [...] - MET STG Goal 3 Status:: Met Custodial Goals Time Frame for [facility] goals : 12 terminal supervisor goal 1: Pt to increase R knee flexion MMT to 4+/5 to help with amb and stairs. - MET LTG Goal 1 Status:: Met [facility] goal 2: Pt to increase tandem stance balance to 10 s 2:3 trials for improved stability and safe amb. - MET LTG Goal 2 Status:: Met terminal supervisor goal 3: Pt to be able to amb on unlevel surface without an AD and no deviations for 150ft. Post Treatment Pain: 0/10 Time In: 1035 Time Out : 1110 Timed Code Treatment Minutes: 35 Minutes Total Treatment Time: 35 Minutes Otis Edward COUNCIL MEMBER Date: 02/21/2022 [facility] Phone: [phone]) 235-969708-12-2022 History of Present illness Narrative* Otis Edward COUNCIL MEMBER - 02/18/2022 10:30 AM EDT Images from the original note were not included. [facility] Outpatient Physical Therapy Daily Note Date: [...] - MET STG Goal 3 Status:: Met Custodial Goals Time Frame for terminal supervisor goals : 12 terminal supervisor goal 1: Pt to increase R knee flexion MMT to 4+/5 to help with amb and stairs. - MET LTG Goal 1 Status:: Met terminal supervisor goal 2: Pt to increase tandem stance balance to 10 s 2:3 trials for improved stability and safe amb. terminal supervisor goal 3: Pt to be able to amb on unlevel surface without an AD and no deviations for 150ft. Post Treatment Pain: 0/10 Time In: 1035 Time Out : 1115 Timed Code Treatment Minutes: 40 Minutes Total Treatment Time: 40 Minutes Otis Edward PTA Date: 02/18/2022 [facility] Work Phone: [phone]) 970-773508-08-2022 History of Present illness Narrative* Marcella Dover, COUNCIL MEMBER - 02/14/2022 9:45 AM EDT Images from the original note were not included. 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 terminal supervisor goal 2: Pt to increase tandem stance balance to 10 s 2:3 trials for improved stability and safe amb. terminal supervisor goal 3: Pt to be able to amb on unlevel surface without an AD and no deviations for 150ft. 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 terminal supervisor goal 2: Pt to increase tandem stance balance to 10 s 2:3 trials for improved stability and safe amb. terminal supervisor goal 3: Pt to be able to amb on unlevel surface without an AD and no deviations for 150ft. Post Treatment Pain: 09/16 Time In: 1302 Time Out: 1342 Timed Code Treatment Minutes: 40 Minutes Total Treatment Time: 40 Minutes Georgia Pham, SPT /Directly Supervised by Kyara Villegas, PT Date: 02/11/2022 [facility] [employer] Phone: 1(388) 207-218108-01-2022 History of Present illness Narrative* Otis Edward, TAYLOR - 02/07/2022 10:30 AM EDT Images from the original note were not included. [facility] Outpatient Physical Therapy Daily Note Date: [...] - MET STG Goal 3 Status:: Met Custodial Goals Time Frame for terminal supervisor goals : 12 terminal supervisor goal 1: Pt to increase R knee flexion MMT to 4+/5 to help with amb and stairs. [facility] goal 2: Pt to increase tandem stance balance to 10 s 2:3 trials for improved stability and safe amb. [facility] goal 3: Pt to be able to amb on unlevel surface without an AD and no deviations for 150ft. Post Treatment Pain: 09/16 Time In: 1033 Time Out : 1115 Timed Code Treatment Minutes: 42 Minutes Total Treatment Time: 42 Minutes Otis Edward PTA Date: 02/07/2022 documented in this encounterBON [email or web address] Phone: [phone]) 616-797707-25-2022 History of Present illness Narrative* Candida Salomon - 01/31/2022 1:00 PM EDT Images from the original note were not included. Physical Therapy [facility] Outpatient Physical Therapy Daily Note Date: [...] 3: Pt to become independent with HEP. Gravity Prospecting Operator Goals Time Frame for terminal supervisor goals : 12 terminal supervisor goal 1: Pt to increase R knee flexion MMT to 4+/5 to help with amb and stairs. [facility] goal 2: Pt to increase tandem stance balance to 10 s 2:3 trials for improved stability and safe amb. [facility] goal 3: Pt to be able to amb on unlevel surface without an AD and no deviations for 150ft. Post Treatment Pain: 09/16 Time In:1255 Time Out : 1340 Timed Code Treatment Minutes: 45 Minutes Minutes Candida Salomon PTA Date: 01/31/2022 documented in this encounterBON [email or web address] Phone: 1(854) 379-441306-27-2022 Evaluation + Plan noteExtracted from: Title:Op Note skeleton Author:Joan Warner DO Date:01/03/22 Impression and Plan Diagnosis Pre-op dx-rt knee oa/pain Post-op dx-same Procedure-rt tka Anesthesia-gen block EBL-0 TT-see nn To Recovery Room in stable and satisfactory condition.. Extracted from: Title:Anesthesia Pre-Op GA/block Author:Wali Garg Date:01/03/22 Plan [place] [employer] (ASA) physical status classification: [...] Appointments Appointment Date:01/17/2022 11:40:00 AM Scheduled Provider: Location:[facility] Appointment Type: Nurse Visit Appointment Date:01/18/2022 11:00:00 AM Scheduled Provider:Audelia VEGA CNP [facility] Type:Cardiology Follow Up (FT) Future Scheduled Tests Laboratory* BUN 01/04/22 * Creatinine 01/04/22 * Electrolyte Panel 01/04/22 * CBC w/ Auto Diff 01/04/22 Radiology* CV Cardiovascular 12/13/21 [facility]06-10-2022 Hospital Discharge instructions Follow Up Care 12/17/2021 10:52:35 With:Sharmin HALL, Marlon Negrete Address: [address] [place], [place] [id number] When:6 months [facility]06-10-2022 Hospital Discharge instructions Patient Education 12/17/2021 10:52:21 CV - Cardiovascular Discharge Instructions (CUSTOM) [place], [place] CARDIOVASCULAR DISCHARGE INSTRUCTIONS Diet: Resume pre-procedure [...] you are interested in smoking cessation, contact [facility] at [phone], ext. [phone]. In the event you are unable to reach your physician, please call [facility] at [phone] and the digital pre press operator will assist you. Seek Immediate Medical Care for: Bleeding: Apply continuous pressure to the site and Call 911. Should the arm or leg become cold, numb, blue or white call your physician immediately. Signs of infection are redness, warmth, swelling, increased tenderness, colored drainage, fever or chills Chest pain Follow Up Care 12/13/2021 12:37:10 With:Marlon Finney Address: [address] [place], [place] [phone] [facility] (1) When:01/18/2022 11:00:00 Comments:Keep scheduled appointment [facility]06-06-2022 Hospital Discharge instructions Patient Education 12/13/2021 [...] including vitamins, herbs, eye drops, creams, and mjss-ugg-[id number] medicines. Any problems you or family members [...] 12/31/2003 Document Revised: 06/08/2018 Document Reviewed: 04/07/2017 [employer] Patient Education 2020 [employer]. Follow Up Care 11/24/2021 09:56:15 With:Marlon Finney MD Address: [address] [place] [address] [place] [address]- When: Unknown [facility]06-02-2022 Evaluation + Plan note Future Appointments Appointment Date:12/17/2021 10:00:00 AM Scheduled Provider: [facility] Appointment Type:CV Heart Cath (FT) Appointment Date:12/27/2021 02:00:00 PM Scheduled Provider: Location:[facility] Appointment Type:FM Nurse Visit Appointment Date:01/03/2022 10:00:00 AM Scheduled Provider: Location:[facility] Appointment Type:Surgery FT Future Scheduled Tests Radiology* CV Cardiovascular 12/13/21 * CV Cardiovascular 12/17/21 [facility]04-18-2022 Hospital Discharge instructions Patient Education 10/25/2021 [...] check for related conditions, such as: ?Asthma. ?Gaffney eye. ?Ear infection. ?Upper respiratory infection. Tests [...] before sitting on furniture or bedding. Take mmex-qao-cdrlobh and prescription medicines only as told by [...] 03/21/2002 Document Revised: 06/08/2018 Document Reviewed: 08/03/2017 [employer] Patient Education 2020 [employer] Follow Up Care 10/25/2021 10:35:28 With:RITU HALL FAAFP, LALA Rob Address: When: Unknown Comments:return as otherwise scheduled [facility] [place] 06-02-2020 Evaluation + Plan note Future Appointments Appointment Date:12/03/2021 03:00:00 PM Scheduled Provider: [facility] App[facility] Type:CV Echo (FT) Appointment Date:12/09/2021 08:00:00 AM Scheduled Provider: [facility] App[facility] Type:NM Myocard Spect Multi Rest/Stress-Res Appointment Date:12/09/2021 09:00:00 AM Scheduled Provider: [facility] Appointment Type:NM Myocard Spect Multi Rest/Stress - R Appointment Date:12/09/2021 09:30:00 AM Scheduled Provider: [facility] Appointment Type:NM Myocard Spect Multi Rest/Stress-Str Appointment Date:12/09/2021 10:30:00 AM Scheduled Provider: [facility] Appointment Type:NM Myocar Spect Multi Rest/Stress - St Appointment Date:12/13/2021 09:30:00 AM Scheduled Provider:Audelia VEGA CNP [facility] Type:Cardiology Follow Up (FT) Appointment Date:12/13/2021 02:00:00 PM Scheduled [facility]FM Nurse Visit Appointment Date:01/03/2022 10:00:00 AM Scheduled Provider: Location:[facility] Appointment Type:Surgery FT Future Scheduled Tests Radiology* NM Myocardial Spect Rest/Stress 1 Day 12/09/21 * Echo Transthoracic Complete 12/03/21 [facility] Evaluation + Plan note Future Appointments Appointment Date:10/18/2021 09:40:00 AM Scheduled Provider: Location:[facility] Appointment Type:FM Nurse Visit [facility] Evaluation + Plan note Future Appointments Appointment Date:11/01/2021 09:40:00 AM Scheduled Provider: Location:[facility] Appointment Type:FM Nurse Visit [facility] Evaluation + Plan note Future Appointments Appointment Date:11/01/2021 09:40:00 AM Scheduled Provider: Location:[facility] Appointment Type:FM Nurse Visit Appointment Date:11/10/2021 08:30:00 AM Scheduled Provider: Location:[facility] Appointment Type:Surgical PAT FT Appointment Date:11/29/2021 10:50:00 AM Scheduled Provider: Location:[facility] Appointment Type:Surgery FT [facility] Evaluation + Plan note Future Appointments Appointment Date:11/10/2021 08:30:00 AM Scheduled Provider: [facility] Appointment Type:Surgical PAT FT Appointment Date:11/15/2021 09:40:00 AM Scheduled Provider: Location:[facility] Appointment Type:FM Nurse Visit Appointment Date:11/26/2021 09:40:00 AM Scheduled Provider: Location:[facility] Appointment Type:FM Nurse Visit Appointment Date:11/29/2021 10:50:00 AM Scheduled Provider: Location:[facility] Appointment Type:Surgery FT [facility] Evaluation + Plan note Future Appointments Appointment Date:11/15/2021 09:40:00 AM Scheduled Provider: Location:[facility] Appointment Type:FM Nurse Visit Appointment Date:11/26/2021 09:40:00 AM Scheduled Provider: Location:[facility] Appointment Type:FM Nurse Visit Appointment Date:11/29/2021 10:00:00 AM Scheduled Provider: Location:[facility] Appointment Date:11/26/2021 09:40:00 AM Scheduled Provider: Location:[facility] Appointment Type:FM Nurse Visit Appointment Date:11/29/2021 10:00:00 AM Scheduled Provider: Location:[facility] Appointment Type:Surgery FT [facility] Evaluation + Plan note Future Appointments Appointment Date:11/26/2021 09:40:00 AM Scheduled Provider: Location:[facility] Appointment Type:FM Nurse Visit Appointment Date:11/29/2021 10:00:00 AM Scheduled Provider: Location:[facility] Appointment Type:Surgery FT Future Scheduled Tests Radiology* NM Myocardial Spect Rest/Stress 1 Day 11/19/21 * Echo Transthoracic [facility]ments Appointment Date:12/13/2021 09:30:00 AM Scheduled Provider:Audelia VEGA CNP [facility] Type:Cardiology Follow Up (FT) Appointment Date:12/13/2021 02:00:00 PM Scheduled Provider: Location:[facility] Appointment Type:FM Nurse Visit Appointment Date:01/03/2022 10:00:00 AM Scheduled Provider: Location:[facility] App[facility]ments Appointment Date:12/27/2021 02:00:00 PM Scheduled Provider: Location:[facility] Appointment Type:FM Nurse Visit Appointment Date:01/03/2022 10:00:00 AM Scheduled Provider: Location:[facility] Appointment Type:Surgery FT Appointment Date:01/18/2022 11:00:00 AM Scheduled Provider:Audelia VEGA CNP [facility] Type:Cardiology Follow Up (FT) Future Scheduled Tests Radiology* CV [facility] App[facility]ments Appointment Date:01/03/2022 10:00:00 AM Scheduled Provider: Location:[facility] Appointment Type:Surgery FT Appointment Date:01/17/2022 11:40:00 AM Scheduled Provider: Location:[facility] Appointment Type:FM Nurse Visit Appointment Date:01/18/2022 11:00:00 AM Scheduled Provider:Audelia VEGA CNP [facility] Type:Cardiology Follow Up (FT) Future Scheduled Tests Radiology* CV Cardiovascular 12/13/21 [facility] Evaluation + Plan note Future Appointments Appointment Date:01/31/2022 11:40:00 AM Scheduled Provider: Location:[facility] Appointment Type:FM Nurse Visit Appointment Date:07/21/2022 01:15:00 PM Scheduled Provider:Marlon Finney MD [facility] Type:Cardiology Follow Up (FT) Future Scheduled Tests Laboratory* BUN 01/04/22 * Creatinine 01/04/22 * Electrolyte Panel 01/04/22 * CBC w/ Auto Diff 01/04/22 Radiology* CV [facility] App[facility]ments Appointment Date:02/28/2022 10:20:00 AM Scheduled Provider: Location:[facility] Appointment Type: Nurse Visit Appointment Date:07/21/2022 01:15:00 PM Scheduled Provider:Marlon Finney MD [facility] Type:Cardiology Follow Up (FT) Future Scheduled Tests Laboratory* BUN 01/04/22 * Creatinine 01/04/22 * Electrolyte Panel 01/04/22 * CBC w/ Auto Diff 01/04/22 Radiology* CV Cardiovascular 12/13/21 [facility] Evaluation + Plan note Future Appointments Appointment Date:03/15/2022 10:00:00 AM Scheduled Provider: Location:[facility] Appointment Type: Nurse Visit Appointment Date:07/21/2022 01:15:00 PM Scheduled Provider:Marlon Finney MD [facility] Type:Cardiology Follow Up (FT) Future Scheduled Tests Laboratory* BUN 01/04/22 * Creatinine 01/04/22 * Electrolyte Panel 01/04/22 * CBC w/ Auto Diff 01/04/22 Radiology* CV Cardiovascular 12/13/21 [facility] Evaluation + Plan note Future Appointments Appointment Date:03/28/2022 10:20:00 AM Scheduled Provider: Location:[facility] Appointment Type: Nurse Visit Appointment Date:07/21/2022 01:15:00 PM Scheduled Provider:Marlon Finney MD [facility] Type:Cardiology Follow Up (FT) Future Scheduled Tests Laboratory* BUN 01/04/22 * Creatinine 01/04/22 * Electrolyte Panel 01/04/22 * CBC w/ Auto Diff 01/04/22 Radiology* CV Cardiovascular 12/13/21 [facility] Evaluation + Plan note Future Appointments Appointment Date:04/11/2022 10:20:00 AM Scheduled Provider: Location:[facility] Appointment Type: Nurse Visit Appointment Date:07/21/2022 01:15:00 PM Scheduled Provider:Marlon Finney MD [facility] Type:Cardiology Follow Up (FT) Future Scheduled Tests Laboratory* BUN 01/04/22 * Creatinine 01/04/22 * Electrolyte Panel 01/04/22 * CBC w/ Auto Diff 01/04/22 Radiology* CV Cardiovascular 12/13/21 [facility] Evaluation + Plan note Future Appointments Appointment Date:04/25/2022 10:20:00 AM Scheduled [facility]: Nurse Visit Appointment Date:07/21/2022 01:15:00 PM Scheduled Provider:Marlon Finney MD [facility] Type:Cardiology Follow Up (FT) Future Scheduled Tests Laboratory* BUN 01/04/22 * Creatinine 01/04/22 * Electrolyte Panel 01/04/22 * CBC w/ Auto Diff 01/04/22 Radiology* CV Cardiovascular 12/13/21 [facility] Promobucketaluation + Plan note Future Appointments Appointment Date:05/10/2022 08:00:00 AM Scheduled Provider: Location:[facility] Appointment Type: Medicare Wellness Subsequent Appointment Date:05/23/2022 10:00:00 AM Scheduled Provider[facility] Type: Nurse Visit Appointment Date:07/21/2022 01:15:00 PM Scheduled Provider:Marlon Finney MD [facility] Type:Cardiology Follow Up (FT) Future Scheduled Tests Laboratory* BUN 01/04/22 * Creatinine 01/04/22 * Electrolyte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 03/04/2020 [facility] DATE CREATED AUTHOR AUTHOR'S ORGANIZ ATION 03/02/2022 Eva Stephens [email or web address] DATE CREATED AUTHOR AUTHOR'S ORGANIZ ATION 04/30/2022 [facility] DATE CREATED AUTHOR AUTHOR'S ORGANIZ ATION 01/04/2024 [facility] DATE CREATED AUTHOR AUTHOR'S ORGANIZ ATION 01/23/2024 [facility] DATE CREATED AUTHOR AUTHOR'S ORGANIZ ATION 03/12/2024 [facility] EPIC DATE CREATED AUTHOR AUTHOR'S ORGANIZ ATION 03/19/2024 [facility] Care Team (unrecognized sect ion and content) Pipe Foreman Relationship Specialty Start Date End Date Esperanza Chaney MD [address] [place] [address] [place] PCP - General Family Medicine 08/16/21 Pipe Foreman Relationship Specialty Start Date End Date Esperanza Chaney MD [facility] [place] PCP - General Family Medicine 08/16/21 Pipe Foreman Relationship Specialty Start Date End Date Esperanza Chaney MD [address] [place] PCP - General Family Medicine 08/16/21 Pipe Foreman Relationship Specialty Start Date End Date Esperanza Chaney MD [address] [place] [address] Dr. [place] PCP - General Family Medicine 08/16/21 Pipe Foreman Relationship Specialty Start Date End Date Esperanza Chaney MD [address] [place] PCP - General Family Medicine 08/16/21 Pipe Foreman Relationship Specialty Start Date End Date Esperanza Chaney MD [address] [place] [address] [place] [address] PCP - General Family Medicine 01/03/23 Pipe Foreman Relationship Specialty Start Date End Date Esperanza Chaney MD [address] [place] [address] PCP - General [facility] 01/03/23 Pipe Foreman Relationship Specialty Start Date End Date Esperanza Chaney MD [address] [place] [address] PCP - General [facility] 01/03/23 Pipe Foreman Relationship Specialty Start Date End Date Esperanza Chaney MD [address] [place] [address] PCP - General [facility] 01/03/23 FOR RECORDS PERTAINING TO PATIENTS WHO [...] BE BASED ON THE PRIMARY CLINICAL RECORDS. [facility]. provides no warranty or guarantee of the accuracy or completeness of information in this document.
[2024-03-22 13:04] VITALS: BMI 37.4
== END 2024-03-22 13:15 | disposition home or self-care (01) ==
LOC: VC 12:31
PROVIDERS: PCP Radiology Diagnostic Radiology; Visit Provider Radiology Diagnostic Radiology
DX: I80.01 Phlebitis and thrombophlebitis of superficial vessels of right lower extremity (principal)
CPT/HCPCS: 93971; G0463

== ENCOUNTER 2024-04-08 13:54 | Outpatient (OUT) | payer MEDICARE, OTHER, SELFPAY ==
--- NOTE | 2024-04-08 08:53 | VEINCLINIC_ITS ---
Vital Signs 04/08/24 16:24 Height 5 ft 4 in Weight 218 kg BMI 82.5 BP 140/68 BP Location Right Brachial BP Position Sitting BP Cuff Size Adult BP Source Manual Cuff Respiration 18 Pulse 71 Pulse Source Monitor Pulse Oximetry (%) 95 Oxygen Delivery Method Room Air Comment The patient's blood pressure is elevated. Varicose Veins Patient in today for microfoam chemical ablation left leg Kwasi Mabry MD personally performed the services described in this documentation, as scribed by Ramon Atkinson RN in my presence and it is both accurate and complete. IRamon RN, am scribing for, and in the presence of, Dr. Kwasi Ruiz and in the presence of the patient. medial thigh: bilateral, knee: bilateral, calf: bilateral, ankle: bilateral and wahl: bilateral cramping, sharp and intermittent 5 20 years Worsened in recent months: Yes standing and sitting analgesics (ibuprofen and tylenol), bed rest, elevating extremities, compression stockings and exercise Reports leg edema and other (bulging veins, discolored veins, and dilated veins) History of lower extremity trauma: No Superficial thrombophlebitis: No Family history of varicose veins: yes Has patient had previous lower extremity venous surgery: No Patient has previously received the following treatment(s) for lower extremity varicose veins: Reports none Does patient have a history of : yes Does patient intend to have future pregnancies: no Has patient had lower extremity venous scan with relux testing: Yes Support hose used: Yes Problems walking or doing physical activity: Yes How does it affect you: Affects patients sleep and is not sleeping well Do you walk much: Yes Do you stand much: Yes Medication compliance: good Review of Systems ROS Narrative Kwasi Mabry MD personally performed the services described in this documentation, as scribed by Ramon Atkinson RN in my presence and it is both accurate and complete. Ramon Mabry RN, am scribing for, and in the presence of, Dr. Kwasi Ruiz and in the presence of the patient. Status of ROS 10 or more systems reviewed and unremark able except as noted in history and below Cardiovascular Reports: edema, swelling of feet/ankles and leg pain with exertion Musculoskeletal Reports: extremity pain, extremity swelling, limited range of motion, joint swelling, muscle cramps and muscle weakness Integumentary/Breast Reports: skin pain, skin tenderness, skin swelling and c hanges in skin color Neurological Reports: numbness in extremities and weakness in extremities PFSH [facility] Medical History (Updated 03/15/24 @ 13:11 by Ramon Atkinson) Phlebitis and thrombophlebitis of superficial vessels of left lower extremity ?I80.02 - Phlebitis and thrombophlebitis of superficial vessels of left lower extremity (ICD-10) Pain due to varicose veins of both lower extremities ?I83.813 - Varicose veins of bilateral lower extremities with pain (ICD-10) Obesity ?E66.9 - Obesity, unspecified (ICD-10) Surgical History (Updated 04/08/24 @ 16:28 by Ramon Atkinson) S/P sclerotherapy of varicose veins ?Z98.890 - Other specified postprocedural states (ICD-10) ?Z86.79 - Personal history of other diseases of the circulatory system (ICD- 10) Status post laser ablation of incompetent vein ?Z98.890 - Other specified postprocedural states (ICD-10) History of bunionectomy ?Z98.890 - Other specified postprocedural states (ICD-10) History of breast biopsy ?Z98.890 - Other specified postprocedural states (ICD-10) History of knee replacement procedure of right knee ?Z96.651 - Presence of right artificial knee joint (ICD-10) Family History (Updated 01/10/24 @ 09:52 by Noemí Castillo) Father Family history of CHF (congestive heart failure) Family history of diabetes mellitus Mother Varicose veins of bilateral lower extremities with pain Social History (Updated 01/10/24 @ 09:52 by Noemí Castillo) Within the past year, how often did you have a drink containing alcohol: 2-4 times a month Smoking status: Never smoker Non-prescribed substance use: denies use Meds Home Medications and Allergies Home Medications ?Medication ?Instructions ?Recorded ?Confirmed ?Type albuterol sulfate 2.5 mg/3 mL 1.25 mg inhalation TID 01/10/24 01/10/24 History (0.083 %) solution for nebulization cetirizine 10 mg tablet (24Hour 5 mg PO DAILY PRN allergy symptoms 01/10/24 01/10/24 History Allergy) clindamycin HCl 300 mg capsule 300 mg PO BID 01/10/24 01/10/24 History (Cleocin HCl) cyanocobalamin (vitamin B-12) 100 100 mcg PO DAILY 01/10/24 01/10/24 History mcg tablet (Vitamin B-12) escitalopram oxalate 20 mg tablet 20 mg PO DAILY 01/10/24 01/10/24 History (Lexapro) hydroxyzine pamoate 25 mg capsule 25 mg PO BID 01/10/24 01/10/24 History (Vistaril) montelukast 10 mg tablet 10 mg PO DAILY 01/10/24 01/10/24 History Allergies Allergy/AdvReac Type Severity Reaction Status Date / Time amoxicillin Allergy Mild Rash Unverified 01/10/24 10:00 naproxen Allergy Unknown Unverified 01/10/24 10:00 codeine AdvReac Mild Nausea Unverified 02/15/24 15:47 Exam Narrative Exam Narrative: Kwasi Mabry MD personally performed the services described in this documentation, as scribed by Ramon Atkinson RN in my presence and it is both accurate and complete. Ramon Mabry RN, am scribing for, and in the presence of, Dr. Kwasi Ruiz and in the presence of the patient. Constitutional Documenting provider has reviewed patient's vital signs: yes Common normals: oriented x3 Lymph Lymphatic: no lymphedema noted Cardio Common normals: regular rate Rate: regular rate Peripheral pulses: posterior tibial pulses present and dorsalis pedis pulses present Extremity Common normals: normal capillary refill General: calf tenderness and edema Right lower extremity: upper leg and lower leg Left lower extremity: upper leg and lower leg Neuro Common normals: oriented x3 Assessment and Plan Assessment and Plan (1) Pain due to varicose veins of both lower extremities: Plan f/u evaluation with physician along with left leg limited u/s Kwasi Mabry MD personally performed the services described in this docu mentation, as scribed by Ramon Atkinson RN in my presence and it is both accurate and complete. Ramon Mabry RN, am scribing for, and in the presence of, Dr. Kwasi Ruiz and in the presence of the patient. Procedures Procedure Instructions Procedures Left leg microfoam chemical ablation/Varithena: Risks and benefits of the procedure were discussed at length and informed written consent was obtained.? Time-out procedure was performed and the correct patient and procedure were confirmed.? Staff present during time-out: Ramon Atkinson RN and Chase Hurley MD.? Patient prepped and procedure performed in usual sterile fashion.? Patient was placed in Trendelenburg prior to Polidocanol/Varithena injections. Sclerosing Agent:?? 14cc 1% Polidocanol/Varithena Site Injected: left lecc varithena administered in to a 5mm varicose vein distal medial left lower leg 6cc varithena administered in to a 4mm varicose vein distal lateral upper leg Number of Injections:? 2 The patient tolerated the procedure well without complication.? Hemostasis was obtained and thigh-high compression stocking was applied with foam pads.? Instructed patient to wear stocking for at least 96 hours and sleep with it and only remove for showering.? The patient was instructed to? wear stocking for 2 weeks.? Patient verbalizes understanding and states they will comply.? Patient was given post-procedure instructions. Patient was discharged in good condition.? Scheduled to undergo limited venous ultrasound and? exam on 04/17/2024 IKwasi MD personally performed the services described in this documentation, as scribed by Ramon Atkinson RN in my presence and it is both accurate and complete. IRamon RN, am scribing for, and in the presence of, Dr. Kwasi Ruiz and in the presence of the patient.
--- NOTE | 2024-04-08 08:55 | W.VEIN ---
Discharge Plan Discharge Disposition: Home, Self-Care Outpatient Diagnostics: VC Facility EST LMTD (Routine) Timeframe: 2 Weeks Facility: [facility] - Location: [facility] Ordered By: Kwasi Ruiz VC EXT Venous LT Limited (Routine) Timeframe: 2 Weeks Facility: [facility] - Location: [facility]in Center Ordered By: Kwasi Ruiz Follow Up Appointments: 04/15/2024 Plan of Treatment: f/u evaluation with physician along with left leg limited u/s Patient Instructions: Polidocanol (By injection) (Asclera, Varithena) Print Language: Estonian Discharge Date/Time: 04/08/24 16:25
--- NOTE | 2024-04-08 14:03 | VEIN_ITS ---
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 Pre-operative Diagnosis: CEAP class C3 venous insufficiency with pain, tenderness, edema and incompetent branch saphenous vein(s), chronic venous insufficiency left leg secondary to venous incompetence Post-operative Diagnosis: CEAP class C3 venous insufficiency with pain, tenderness, edema and incompetent branch saphenous vein(s), chronic venous insufficiency left leg secondary to venous incompetence Procedure Performed: 1. Ultrasound-guided microfoam chemical ablation with Varithenaregistered 2. Intraoperative ultrasound guidance Physician: Kwasi Ruiz M.D. Anesthesia: None Indications for Procedure: 68 year old female. Symptoms including lower extremity pain, swelling, dilated bulging veins for many years despite conservative medical therapy including medical compression stockings, exercise and analgesics. Prior procedures include endovenous laser ablation. Multiple incompetent varicosities of the left leg. Duplex scan showed reflux and enlarged diameters up to 5 mm. The patient underwent informed consent including management options where the complications of infection, bleeding, pain, and skin injury were discussed. Particular attention was spent discussing thrombus extension and deep vein thrombosis as well as the possibility of pulmonary embolus and treatment with oral or injectable blood thinners. Procedure: The patient walked to the procedure room. All applicable staff donned appropriate apparel. A procedure timeout was performed to confirm correct patient, correct extremity, correct procedure, and correct room set-up including presence of all applicable supplies, devices, and drugs. A duplex ultrasound, performed by myself confirmed the location and incompetence of branch saphenous varicosities and their course was marked on the skin together with the dilated tributaries. The extent of treatment of the vein and the associated varicosities was determined through ultrasound mapping. The skin was prepped and then punctured with a butterfly needle and advanced under ultrasound guidance. The Varithenaregistered canister was activated and the canister was primed and purged as required in the instructions for use. Varithenaregistered was drawn into a sterile syringe. Varithenaregistered was slowly administered at 0.5-1.0 cc/second with close observation by ultrasound of its course in the vessels. Total volume utilized was: 14 mL (8 mL into a 5 mm varicosity distal medial lower left leg; 6 mL into a 4 mm varicosity distal lateral upper leg.. Following administration of Varithenaregistered the leg was elevated and the patient was asked to repeatedly dorsiflex the ankle to limit flow of Varithenaregistered into perforating veins. Once appropriate spasm had been confirmed in the treated veins, the vascular catheter was removed from the leg and light pressure was applied over the puncture site for hemostasis. The common femoral and deep superficial veins were then evaluated for flow and compressibility prior to dressing placement. The lower extremity was kept elevated at 45 degrees above the horizontal and cording material was applied over the saphenous segments and tributaries to allow for eccentric compression over the target vessels including the targeted saphenous vein(s). A multilayer dressing was applied consisting of foam pads, coban and thigh-high 20-30 mm Hg compression elastic support hose were placed on the patient. The leg was lowered only after compression had been applied and the patient was immediately ambulatory. The patient ambulated 10 minutes under supervision and was without apparent concerns at time of release. Post-care instructions include advising patient to keep post-treatment bandages in place and dry for 48 hours, avoid extended periods of inactivity, avoid heavy exercise for one week, wear compression stockings on the treated leg continuously for two weeks, to walk daily for 10 minutes over the next month. The patient was instructed to take an anti-inflammatory medicine as needed and to follow up for color duplex scan of the Saphenous veins, the treated branch saphenous varicosities, the adjacent deep veins, and additional treatment within 7 days. PERSONNEL: Ramon Atkinson RN Electronically authenticated by: KWASI RUIZ Date: 04/08/2024 15:17
--- OUTSIDE RECORDS SUMMARY | 2024-04-08 14:15 | XMS_ITS | CCD ---
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 Name Role Phone Esperanza Chaney Primary Care Provider RAMIRO OLSEN Attending Unavailab le BROWN, ESPERANZA Carmichael Primary Care Unavailable Esperanza CHANEY Primary Care Physician Kaitlin Andrea Unavailable Unavailable Ritu HALL, Esperanza [...] le BROWN, ESPERANZA Carmichael Primary Care Unavailable Gueirta Knapp Primary Care Physician Esperanza Chaney MD Primary Care Provider Guerita Knapp Primary Care Physician [phone] Dolce, Brady D Attending Unavailable Dolce, Brady [...] Brady D Attending Unavailable BROWNEsperanza Attending Unavailable KnappGuerita coates Attending Unavailable KnappGuerita lepe Attending Unavailable KnappGuerita coates Attending Unavailable BROWNEsperanza Attending Unavailable Dolce, Brady D Admitting Unavailable Dolce, Brady D Attending Unavailable Dolce, Brady D Attending Unavailable Dolce, Brady D Admitting Unavailable KnappGuerita lepe Attending Unavailable KnappGuerita lepe Attending Unavailable BROWNEsperanza Attending Unavailable BROWNEsperanza Attending Unavailable BROWNEsperanza Attending Unavailable BROWNEsperanza Attending Unavailable KnappGuerita lepe Attending Unavailable KnappGuerita Attending Unavailable KnappGuertia lepe Attending Unavailable KnappGuerita lepe Attending Unavailable KnappGuerita lepe Attending Unavailable BROWN Christelbert Attending Unavailable BROWNEsperanza Attending Unavailable BROWN, Esperanza Carmichael Attending Unavailable BROWNEsperanza Attending Unavailable BROWN, Esperanza Carmichael Attending Unavailable KnappGuerita lepe Attending Unavailable BROWNEsperanza Attending Unavailable BROWN, Esperanza Carmichael Attending Unavailable BROWN Christelbert Attending Unavailable BROWNEsperanza Attending Unavailable KnappGuerita Attending Unavailable KnappGuerita Attending Unavailable KnappGuerita lepe Attending Unavailable BROWNVikram Attending Unavailable KnappGuerita lepe Attending Unavailable KnappGuerita lepe Attending Unavailable BROWNEsperanza Attending Unavailable KnappGuerita lepe Attending Unavailable BROWNPraneethki J Attending Unavailable Guerita Knapp Attending Unavailable RobertoAngi fulton A. Primary Care Physician Unavail able DOLCE, BRADY D Attending Unavailable DOLCE, BRADY D Attending Unavailable HILLS, REGGIE D Referring Unavailable [...] Referring Unavailable WARNER, JOAN Cleary Attending Unavailable DOLCE, BRADY D Attending Unavailable DOLCE, BRADY D Attending Unavailable DOLCE, BRADY D Referring Unavailable DOLCE, BRADY D Attending Unavailable DOLCE, BRADY D Attending Unavailable DOLCE, BRADY D Referring Unavailable HILLS, REGGIE D Referring Unavailable HILLS, REGGIE D Attending Unavailable DOLCE, BRADY D Attending Unavailable DOLCE, BRADY D Referring Unavailable DOLCE, BRADY D Attending Unavailable Guerita Knapp Attending Unavailable RobertoAngi ANilda Attending Unavailable Knapp, Guerita Marshall Attending Unavailable Dolce, Brady Sales Admitting Unavailable Dolce, Brady Sales Attending Unavailable KnappGuerita coates Attending Unavailable Knapp, Guerita Marshall Attending Unavailable RobertoAngi ANilda Attending Unavailable Guerita Knapp Attending Unavailable Allergies Allergy Classification Reported Allergen(s) Allergy Type Date of Onset Reaction(s) Facility NSAIDs (2 sources) Naproxen; Translations: [naproxen] Drug Allergy Nausea (finding) [facility] Opioid Agonists (2 sources) Codeine; Translations: [codeine] Drug Allergy Lightheadedness (finding), Nausea and vomiting (disorder) [facility] Penicillins (antibiotic) (2 sources) Amoxicillin; Translations: [amoxicillin] Drug Allergy Cutaneous eruption (morphologic abnormality) [facility] (20 sources) Codeine; Translations: [Unknown] Drug Allergy 0 GI Intolerance, Lightheadedness (finding), Nausea and vomiting (disorder), Dizziness, Nausea And Vomiting, Unknown [facility] (20 sources) Amoxicillin; Translations: [amoxicillin] Drug Allergy 3 Cutaneous eruption (morphologic abnormality), Rash [facility] (20 sources) Naproxen; Translations: [naproxen] Drug Allergy 3 Nausea (finding), Nausea Only [facility] Medications Current Medications Medication Drug Class(es) Dates [...] Wheezing, 100 EA, Refill(s) 2, [facility] [id number], 165, cm, 07/07/22 9:42:00 EST, Height/Length Dosing, 98, kg, 07/07/22 9:42:00 EST, Weight Dosing 0 08/31/2022 Active Start: 08-31-2022 albuterol 0.08 3% Inh Robyn 3 mL 0.083% - 3mL dosing units, Inhalation, q6hr Wheezing, 100 EA, Refill(s) 2, [facility] [id number], 165, cm, 07/07/22 9:42:00 EST, Height/Length Dosing, 98, kg, 07/07/22 9:42:00 EST, Weight Dosing Start Date: 08/31/22 Status: Ordered Start: 03-10-2021 take 2.5 mg by inhal ation every six hours as needed for wheezing albuterol 0.083% Inh Robyn 3 mL UD 2.5 mg = 3 mL, Inhalation, q6hr, PRN for wheezing, # 100 EA, Refills(s) 2, [id number], 154.1, cm, 05/08/20 8:25:00 EDT, Height/Length Dosing Start Date: 03/10/21 Status: Ordered Start: 03-10-2021 take 2 puff(s) by in halation four times daily for wheezing ProAir HFA 90 mcg/inh inhalation aerosol 2 puff(s), Inhalation, QID for wheezing, 1 EA, Refill(s) 2, [facility] 518, 154.1, cm, 05/08/20 8:25:00 EDT, Height/Length Dosing Start Date: 03/10/21 Status: Ordered Start: 03-10-2021 take 2.5 mg by inhal ation every six hours as needed for wheezing albuterol 0.083% Inh Robyn 3 mL UD 2.5 mg = 3 mL, Inhalation, q6hr, PRN for wheezing, # 100 EA, Refills(s) 2, [facility], 154.1, cm, 05/08/20 8:25:00 EDT, Height/Length Dosing Start Date: 03/10/21 Status: Ordered Albuterol (Eqv-ProAir HFA) 90 mcg/inh inhalation aerosol (20 sources) Start: 07-05-2023 End: 06-29-2024 take 2 puff(s) by inhalation four times daily Albuterol (Eqv-ProAir HFA) 90 mcg/inh inhalation aerosol 2 puff(s), Inhalation, QID Wheezing for 90 day(s), 18 gm, Refill(s) 3, [facility] [id number], 170, cm, 07/05/23 12:11:00 EST, Height/Length Dosing, 98.6, kg, 07/05/23 12:11:00 EST, Weight Dosing Start Date: 07/05/23 Stop Date: 06/29/24 Status: Ordered Start: 09-20-2022 take 2 puff(s) by in halation four times daily Albuterol (Eqv-ProAir HFA) 90 mcg/inh inhalation aerosol 2 puff(s), Inhalation, QID Wheezing, 1 EA, Refill(s) 2, [facility] [id number], 165, cm, 09/20/22 10:56:00 EDT, Height/Length Dosing, [...] day(s), # 6 tab(s), Refills(s) 0, Pharmacy: [facility] [id number], 170, cm, 07/05/23 12:11:00 EST, Height/Length Dosing, 98.6, kg, 07/05/23 12:11:00 EST, Weight Dosing Start Date: 07/05/23 Stop Date: 07/10/23 Status: Ordered Start: 09-20-2022 End: 09-25-2022 azithromycin 250 mg Tab = 1 packet(s), Oral, As Directed, as directed on package labeling, X 5 day(s), # 6 tab(s), Refills(s) 0, Pharmacy: [facility] [id number], 165, cm, 09/20/22 10:56:00 EDT, Height/Length Dosing, 98, kg, 07/07/22 9:42:00 EST, Weight Dosing Start Date: 09/20/22 Stop Date: 09/25/22 Status: Ordered budesonide 0.25 mg/ml inhalation suspension (20 sources) Corticosteroid Start: 09-20-2022 take 0.5 mg by inhalation twice daily budesonide 0.5 mg/2 mL Inh Susp 0.5 mg = 2 mL, NEB, BID, # 90 EA, Refills(s) 1, Pharmacy: [facility] [id number], 165, cm, 09/20/22 10:56:00 EDT, Height/Length Dosing, 98, kg, 07/07/22 9:42:00 EST, Weight Dosing Start Date: 09/20/22 Status: Ordered Start: 03-10-2021 take 0.5 mg by inhal ation once daily budesonide 0.5 mg/2 mL Inh Susp 0.5 mg = 2 mL, NEB, Daily, # 90 EA, Refills(s) 1, Pharmacy: [facility] [id number], 154.1, cm, 05/08/20 8:25:00 EDT, Height/Length Dosing Start Date: 03/10/21 Status: Ordered Start: 03-10-2021 take 0.5 mg by inhal ation once daily budesonide 0.5 mg/2 mL Inh Susp 0.5 mg = 2 mL, NEB, Daily, # 90 EA, Refills(s) 1, [facility], 154.1, cm, 05/08/20 8:25:00 EDT, [...] Daily, # 90 tab(s), Refills(s) 3, Pharmacy: [facility] [id number], 170, cm, 01/02/24 10:45:00 EDT, Height/Length Dosing, 106, kg, 01/02/24 10:45:00 EDT, Weight Dosing Start Date: 01/02/24 Status: Ordered clindamycin 300 mg oral capsule (20 sources) Lincosamide Antibacterial Start: 07-14-2022 clindamycin 300 mg oral cap 2 cap, Oral, Once, take 1 hr prior to procedure, # 2 cap(s), Refills(s) 1, Pharmacy: [facility] [id number], 165, cm, 07/07/22 9:42:00 EST, Height/Length Dosing, 98, kg, 07/07/22 9:42:00 EST, Weight Dosing Start Date: 07/14/22 Status: Ordered Start: 07-14-2022 take 1 capsule by cox monett every six hours clindamycin 300 mg oral cap 300 mg = 1 cap(s), Oral, q6hr, 1 hour before procedure, # 2 cap(s), Refills(s) 1, Pharmacy: [facility] [id number], 170, cm, 07/05/23 12:11:00 EST, Height/Length Dosing, [...] Daily, # 90 tab(s), Refills(s) 3, Pharmacy: [facility] [id number], 170, cm, 01/02/24 10:45:00 EDT, Height/Length Dosing, 106, kg, 01/02/24 10:45:00 EDT, Weight Dosing Start Date: 01/15/24 Status: Ordered Start: 08-15-2022 take 1 tablet by chacha th once daily escitalopram 20 mg Tab 20 mg = 1 tab(s), Oral, Daily, # 90 tab(s), Refills(s) 3, Pharmacy: [facility] [id number], 170, cm, 08/14/23 10:53:00 EST, Height/Length Dosing, 101.7, kg, 08/14/23 10:53:00 EST, Weight Dosing Start Date: 10/03/23 Status: Ordered Start: 03-28-2022 take 1 tablet by chacha th once daily escitalopram 20 mg Tab 20 mg = 1 tab(s), Oral, Daily, # 90 tab(s), Refills(s) 1, Pharmacy: [facility] [id number], 162, cm, 01/18/22 11:03:00 EDT, Height/Length Dosing, 97, kg, 01/18/22 11:03:00 EDT, Weight Dosing Start Date: 03/28/22 Status: Ordered Start: 12-31-2021 take 1 tablet by chacha th once daily escitalopram 20 mg Tab 20 mg = 1 tab(s), Oral, Daily, # 90 tab(s), Refills(s) 1, Pharmacy: [email or web address], 162, cm, 12/17/21 9:05:00 EDT, Height/Length Dosing, 96, kg, 12/17/21 9:05:00 EDT, Weight Dosing Start Date: 12/31/21 Status: Ordered Start: 09-27-2021 [facility] escitalopram 20 mg Tab 20 mg = 1 tab(s), Oral, Daily, # 90 tab(s), Refills(s) 1, Pharmacy: [facility] 518, 154.1, cm, 07/30/21 14:24:00 EST, Height/Length Dosing, 90.5, kg, 07/30/21 14:24:00 EST, Weight Dosing Start Date: 09/27/21 Status: Ordered famotidine 40 mg oral tablet (2 sources) Histamine-2 Receptor Antagonist Start: 04-13-2020 take 1 tablet by mouth once daily at bedtime famotidine 40 mg Tab 40 mg = 1 tab(s), Oral, Once a day (at bedtime), # 30 tab(s), Refills(s) 0, Pharmacy: [facility], 154.1, cm, 04/13/20 12:32:00 EDT, Height/Length [...] Date: 11/14/18 Status: Ordered Flonase 0.05 mg/inh Dalton (13 sources) Start: 11-21-2018 take 2 spray(s) nasal route once daily Flonase 0.05 mg/inh Dalton 2 spray(s), Nasal, Daily, 16 gram, Refill(s) 0, each nostril, [facility] 320 Start Date: 11/21/18 Status: Ordered fluticasone propionate 0.05 mg/actuat metered dose nasal spray (20 sources) Corticosteroid Start: 11-21-2018 take 2 spray(s) nasal route once daily Flonase 0.05 mg/inh Dalton 2 spray(s), Nasal, Daily, 16 gram, Refill(s) 0, each nostril, [facility] 320 Start Date: 11/21/18 Status: Ordered gabapentin 300 mg oral capsule (20 sources) Anti-epileptic Agent Start: 03-14-2023 take 1 capsule by mouth three times daily gabapentin 300 mg Cap 300 mg = 1 cap(s), Oral, TID, # 90 cap(s), Refills(s) 3, Pharmacy: [facility] [id number], 165, cm, 11/24/22 13:54:00 EDT, Height/Length Dosing, 97, kg, 11/24/22 13:54:00 EDT, Weight Dosing Start Date: 03/14/23 Status: Ordered Start: 02-10-2023 take 1 capsule by cox monett three times daily gabapentin 300 mg Cap 300 mg = 1 cap(s), Oral, TID, # 90 cap(s), Refills(s) 0, Pharmacy: [facility] [id number], 165, cm, 11/24/22 13:54:00 EDT, Height/Length Dosing, 97, kg, 11/24/22 13:54:00 EDT, Weight Dosing Start Date: 02/10/23 Status: Ordered Start: 01-11-2023 take 1 capsule by cox monett three times daily gabapentin 100 mg Cap 100 mg = 1 cap(s), Oral, TID, # 90 cap(s), Refills(s) 0, Pharmacy: [facility] [id number], 165, cm, 11/24/22 13:54:00 EDT, Height/Length Dosing, [...] # 360 tab(s), Refills(s) 3, Pharmacy: [facility] [id number], 170, cm, 01/02/24 10:45:00 EDT, Height/Length Dosing, 106, kg, 01/02/24 10:45:00 EDT, Weight Dosing Start Date: 01/02/24 Status: Ordered Start: 03-28-2022 take 1 tablet by chacha th four times daily as needed hydrOXYzine hydrochloride 25 mg Tab 25 mg = 1 tab(s), Oral, QID, PRN as needed for itching, # 360 tab(s), Refills(s) 1, Pharmacy: [facility] [id number], 162, cm, 01/18/22 11:03:00 EDT, Height/Length Dosing, 97, kg, 01/18/22 11:03:00 EDT, Weight Dosing Start Date: 03/28/22 Status: Ordered Start: 09-27-2021 take 1 tablet by chacha th four times daily as needed hydrOXYzine hydrochloride 25 mg Tab 25 mg = 1 tab(s), Oral, QID, PRN as needed for itching, # 360 tab(s), Refills(s) 0, Pharmacy: [facility], 154.1, cm, 07/30/21 14:24:00 EST, Height/Length [...] qPM, # 90 tab(s), Refills(s) 3, Pharmacy: [facility] [id number], 170, cm, 01/02/24 10:45:00 EDT, Height/Length Dosing, 106, kg, 01/02/24 10:45:00 EDT, Weight Dosing Start Date: 01/02/24 Status: Ordered Start: 09-27-2021 take 1 tablet by chacha th once daily in the evening Singulair 10 mg Tab 10 mg = 1 tab(s), Oral, qPM, # 90 tab(s), Refills(s) 1, Pharmacy: [facility] 518, 154.1, cm, 07/30/21 14:24:00 EST, Height/Length [...] Date: 03/22/21 Status: Ordered polyethylene glycol 3350 389302 mg / potassium chloride 1480 mg / sodium bicarbonate 5720 mg / sodium chloride 71468 mg powder for oral solution (1 source) Osmotic Laxative Start: 06-27-2022 take 1 dose by mouth once NuLYTELY [place] oral powder for reconstitution See Instructions, 1 EA, Refill(s) 0, Per physcisians instructions prior to colonoscopy, [facility] [id number], 165, cm, 06/27/22 14:23:00 EST, Height/Length Dosing, [...] days., # 18 tab(s), Refills(s) 0, Pharmacy: [facility] [id number], 170, cm, 07/05/23 12:11:00 EST, Height/Length Dosing, 98.6, kg, 07/05/23 12:11:00 EST, Weight Dosing Start Date: 07/05/23 Status: Ordered Start: 08-18-2022 predniSONE 20 mg Tab See Instructions, 3 po daily x 2 days then 2 po daily x 2 days then 1po daily x 2 days, # 18 tab(s), Refills(s) 0, Pharmacy: [facility] 320, 165, cm, 07/07/22 9:42:00 EST, Height/Length Dosing, 98, kg, 07/07/22 9:42:00 EST, Weight Dosing Start Date: 08/18/22 Status: Ordered Start: 03-28-2022 End: 04-02-2022 take 2 tablets by mouth once daily predniSONE 20 mg Tab 40 mg = 2 tab(s), Oral, Daily, X 5 day(s), # 10 tab(s), Refills(s) 0, Pharmacy: [facility] 320, 162, cm, 01/18/22 11:03:00 EDT, Height/Length Dosing, 97, kg, 01/18/22 11:03:00 EDT, Weight Dosing Start Date: 03/28/22 Stop Date: 04/02/22 Status: Ordered Start: 12-09-2021 predniSONE 20 mg Tab See Instructions, 3 po daily x 2 days then 2 po daily x 2 days then 1po daily x 2 days, # 18 tab(s), Refills(s) 0, Pharmacy: [facility] 320, 163, cm, 12/09/21 14:21:00 EDT, Height/Length Dosing, 95, kg, 11/19/21 15:23:00 EDT, Weight Dosing Start Date: 12/09/21 Status: Ordered Start: 07-12-2021 predniSONE 20 mg Tab See Instructions, 3 po daily x 3 days then 2 po daily x 3 days then 1po daily x 3 days, # 18 tab(s), Refills(s) 0, Pharm[facility]: [facility] 518, 154.1, cm, 05/08/20 8:25:00 EDT, Height/Length Dosing Start Date: 07/12/21 Status: Ordered ProAir HFA 90 mcg/inh inhalation aerosol (20 sources) Start: 03-10-2021 take 2 puff(s) by inhalation four times daily for wheezing ProAir HFA 90 mcg/inh inhalation aerosol 2 puff(s), Inhalation, QID for wheezing, 1 EA, Refill(s) 2, [facility], 154.1, cm, 05/08/20 8:25:00 EDT, Height/Length Dosing Start Date: 03/10/21 Status: Ordered Triamcinolone (4 sources) Corticosteroid Start: 08-31-2020 triamcinolone Top 0.1% Crm 30 gram 1 pete, Topical, BID, 30 gram, Refill(s) 1, [facility] 320, 154.1, cm, 05/08/20 8:25:00 EDT, Height/Length [...] Range Facil ity Ambulatory Visit Summaryon 0 03-25-2024 Ambulatory Visit Summary Ambulatory Visit Summary ANGELA ALONZO :1955 Visit Date:03/25/2024 Ambulatory Visit Instructions Your Diagnosis Perennial allergic rhinitis Your Care Team Attending Physician - Angi Parikh Primary Care Physician - Angi Parikh This Is [place]ations [place] [facility]Handicapped [place]ing Placard) albuterol (Albuterol (Eqv-ProAir [...] mg Tab) fluticasone nasal (Flonase 0.05 mg/inh Dalton) hydrOXYzine (hydrOXYzine hydrochloride 25 mg Tab) montelukast (Singulair 10 mg Tab) omega-3 polyunsaturated fatty acids (Fish Oil 500 mg oral capsule) Procedures Performed Colonoscopy (07/07/2022), Total knee arthroplasty (01/03/2022), Cardiac catheterization, left heart (12/17/2021), left needle localized breast biopsy (08/22/2012), Breast biopsy and related procedures (01/2002), HEEL SPUR REMOVAL. What to do next Scheduled Follow-Up Appointments Monday 9:30 AM EST Where: [facility] [address] [place] [address]- Medications What How Much When Instructions Unchanged [...] Unchanged fluticasone nasal (Flonase 0.05 mg/ inh Dalton) 2 Sprays Nasal Inhalation Every day each [...] Meds, 0.5 mL, SubCutaneous. For: Perennial allergic rhinitis Allergies Anaprox (Nausea) amoxicillin (Rash) codeine (Lightheaded, [...] you for choosing us for your care. Normal [facility] Family Medicine Office/Clini c Noteon 03-05-2024 Family [...] the right knee. I was contacted by [facility] regarding the patient's MRI results, with concern [...] had advised her to seek treatment in [place], [place]. The mass occasionally causes pain, but [...] little toe. She prefers to go to [facility] for further evaluation. Additionally, she has [...] with voice recognition artificial intelligence software, specifically [place], [employer]Tel and or [place]. Substitutions may have occurred due to the inherent limitations of voice recognition and artificial intelligence software. ATTESTATION: This note has been generated by Shahram DOSHI and edited by Sae Boone, Quality Pig Breeder/Reviewed by Jaquan OCHOA. 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 Normal [facility] Comment on above: Result Comment: Elec [...] Knapp PA-C This Is Your Medications [place] [facility] [place]Handicapped Parking Placard) albuterol (Albuterol (Eqv-ProAir [...] mg Tab) fluticasone nasal (Flonase 0.05 mg/inh Dalton) hydrOXYzine (hydrOXYzine hydrochloride 25 mg Tab) montelukast [...] Follow-Up Appointments Monday 10:40 AM EDT Where: [facility] [address] [place] [address]- Monday 9:30 AM EST Where: [facility] [address] [place] [address]- Medications What How Much When Instructions Unchanged [...] Unchanged fluticasone nasal (Flonase 0.05 mg/ inh Dalton) 2 Sprays Nasal Inhalation Every day each [...] you for choosing us for your care. [facility] Ambulatory Visit Summaryon 0 02-12-2024 Ambulatory Visit Summary Ambulatory Visit Summary ANGELA ALONZO :1955 Visit Date:02/12/2024 Ambulatory Visit Instructions Your [...] mg Tab) fluticasone nasal (Flonase 0.05 mg/inh Dalton) hydrOXYzine (hydrOXYzine hydrochloride 25 mg Tab) montelukast (Singulair 10 mg Tab) omega-3 polyunsaturated fatty acids (Fish Oil 500 mg oral capsule) Procedures Performed Colonoscopy (07/07/2022), Total knee arthroplasty (01/03/2022), Cardiac catheterization, left heart (12/17/2021), left needle localized breast biopsy (08/22/2012), Breast biopsy and related procedures (01/2002), HEEL SPUR REMOVAL. What to do next Scheduled Follow-Up Appointments Monday 9:30 AM EST Where: [facility] [id number]- Medications What How Much When Instructions Unchanged [...] Unchanged fluticasone nasal (Flonase 0.05 mg/ inh Dalton) 2 Sprays Nasal Inhalation Every day each [...] you for choosing us for your care. Normal [facility] Ambulatory Visit Summaryon 0 01-29-2024 Ambulatory Visit Summary Ambulatory Visit Summary MAGALIE ALONZOORADiane Oconnor :1955 Visit Date:01/29/2024 Ambulatory Visit Instructions Your Diagnosis Allergic rhinitis, seasonal Your Care Team Attending Physician - Guerita Knapp PA-C Primary Care Physician - Guerita Knapp PA-C This Is Your Medications [place] [facility] [place]Handicapped Parking Placard) albuterol (Albuterol (Eqv-ProAir [...] mg Tab) fluticasone nasal (Flonase 0.05 mg/inh Dalton) hydrOXYzine (hydrOXYzine hydrochloride 25 mg Tab) montelukast (Singulair 10 mg Tab) omega-3 polyunsaturated fatty acids (Fish Oil 500 mg oral capsule) Procedures Performed Colonoscopy (07/07/2022), Total knee arthroplasty (01/03/2022), Cardiac catheterization, left heart (12/17/2021), left needle localized breast biopsy (08/22/2012), Breast biopsy and related procedures (01/2002), HEEL SPUR REMOVAL. What to do next Scheduled Follow-Up Appointments Monday 9:30 AM EST Where: [facility] [place] Normal [facility] Family Medicine Office/Clini c Noteon 01-07-2024 Family Medicine Office/Clinic Note Family Medicine Office/Clinic Note Chief Complaint Patient presents today for surgical clearance, R foot [facility] Staff Date of Procedure: 01/24/24 Surgeon: Dr. [...] She is scheduled for an MRI at [facility] on 01/05/2024 at 6:45 a.m. She occasionally [...] (Z01.818: E (more content not included)... Normal [facility] Comment on above: Result Comment: Elec tronically Signed By: Ra MENDES, Guerita Marshall\.br\Date and Time Signed: 01/07/24 21:36 EDT\.br\Electronically Co-Signed By: Sonia Jane.emely\Date and Time Co-Signed: 01/02/24 14:04 EDT Ambulatory [...] oral cap) fluticasone nasal (Flonase 0.05 mg/inh Dalton) omega-3 polyunsaturated fatty acids (Fish Oil 500 [...] Follow-Up Appointments Monday 10:40 AM EDT Where: [facility] [place] [facility] [address] [place] [address]- \.br\ You Need to Schedule the Following Appointments\.br\ Follow Up with Guerita Knapp PA-C When: In 6 months\.br\ Comments:\.br\ For check up\.br\ Where:\.br\ [address]br\ [place] [address]-\.br\ [phone]\.br\ Medications\.br\ What How Much When Instructions\.br\ Unchanged cetirizine (cetirizine 10 mg Tab) 1 Tablets By Mouth Every day Pickup at [facility] [id number]\.br\ Unchanged escitalopram (escitalopram 20 mg Tab) 1 Tablets By Mouth Every day\.br\ Unchanged hydrOXYzine (hydrOXYzine hydrochloride 25 mg Tab) 1 Tablets By Mouth 4 times a day as needed for as needed for itching Pickup at [facility] [id number]\.br\ Unchanged montelukast (Singulair 10 mg Tab) 1 Tablets By Mouth Once a day (in the evening) Pickup at [facility] [id number]\.br\ Unchanged albuterol (Albuterol (Eqv-ProAir HFA) 90 mcg/ [...] Unchanged fluticasone nasal (Flonase 0.05 mg/ inh Dalton) 2 Sprays Nasal Inhalation Every day each [...] or concerns \.br\ Pharmacy Information\.br\ FORMERLY [facility] [id number]: [address] [place], [place] [id number] [phone]\.br\ Allergies\.br\ Anaprox (Nausea)\.br\ amoxicillin (Rash)\.br\ codeine (Lightheaded, [...] and frozen vegetables.\.br\ ? \.br\ Avoid buying xtaae-mu-etm foods, such as pre-cut fruits and vegetables and pre-made salads.\.br\ ? \.br\ If possible, shop around to discover where you can find the best prices. Consider other retailers such as [employer] stores, larger wholesale stores, local fruit and vegetable [employer], and [employer] markets.\.br\ ? \.br\ Do not shop when [...] instead of beef.\.br\ ? \.br\ Choose canne [facility] BMPon 01-01-2023 Anion gap [Moles/Vol] 10 mmol/L Normal 6-16 [facility] Comment on above: Performed By: #### 2 [id number] #### [facility] [address] [place] [address] Calcium [Mass/Vol] 10.2 mg/dL Normal 8.9-11.1 [facility] Comment on above: Performed By: #### 2 [id number] #### [facility] [address] [place] [address] Chloride [Moles/Vol] 105 mmol/L Normal 101-111 [facility] Comment on above: Performed By: #### 2 427320 #### [facility] [address] [place] [address] CO2 [Moles/Vol] 27 mmol/L Normal 21-31 [facility] Comment on above: Performed By: #### 2 060291 #### [facility] [address] [place] [address] Creatinine [Mass/Vol] 0.7 mg/dL Normal 0.5-1.3 [facility] Comment on above: Performed By: #### 2 949460 #### [facility] [address] [place] [address] Glucose [Mass/Vol] 77 mg/dL Normal 55-199 [facility] Comment on above: Performed By: #### 2 900528 #### [facility] [address] [place] [address] Potassium [Moles/Vol] 4.0 mmol/L Normal 3.5-5.3 [facility] Comment on above: Performed By: #### 2 667158 #### [facility] [address] [place] [address] Sodium [Moles/Vol] 138 mmol/L Normal 135-145 [facility] Comment on above: Performed By: #### 2 999275 #### [facility] [address] [place] [address] Urea nitrogen [Mass/Vol] 16 mg/dL Normal 5-21 [facility] Comment on above: Performed By: #### 2 810878 #### [facility] [address] [place] [address] Urea nitrogen/Creatinine [Mass ratio] 23 No Units High 10-20 [facility] Comment on above: Performed By: #### 2 842293 #### [facility] [address] [place] [address] CBC w/ Auto Diffon 01-01- 4 Basophils/100 WBC (Bld) 0.8 % Normal 0.0-2.0 [facility] Comment on above: Performed By: #### 2 935698 #### [facility] [address] [place] [address] Basophils/Leukocytes Auto (Bld) [Pure # fraction] 0.1 E9/L Normal 0.0-0.2 [facility] Comment on above: Performed By: #### 2 228498 #### [facility] [address] [place] [address] Eosinophils (Bld) [#/Vol] 0.2 E9/L Normal 0.0-0.5 [facility] Comment on above: Performed By: #### 2 391308 #### [facility] [address] [place] [address] Eosinophils/100 WBC (Bld) 2.6 % Normal 0.0-8.0 [facility] Comment on above: Performed By: #### 2 255687 #### [facility] [address] [place] [address] Erythrocyte distribution width (RBC) [Ratio] 13.4 % Normal 10.9-14.2 [facility] Comment on above: Performed By: #### 2 590169 #### [facility] [address] [place] [address] Hematocrit (Bld) [Volume fraction] 42.1 % Normal 34.0-46.0 [facility] Comment on above: Performed By: #### 2 360855 #### [facility] [address] [place] [address] Hemoglobin (Bld) [Mass/Vol] 14.4 g/dL Normal 12.0-16.0 [facility] Comment on above: Performed By: #### 2 693543 #### [facility] [address] [place] [address] Lymphocytes (Bld) [#/Vol] 1.9 E9/L Normal 1.0-4.0 [facility] Comment on above: Performed By: #### 2 743109 #### [facility] [address] [place] [address] Lymphocytes/100 WBC (Bld) 30.4 % Normal 14.0-50.0 [facility] Comment on above: Performed By: #### 2 934599 #### [facility] [address] [place] [address] MCH (RBC) [Entitic mass] 31.0 pg Normal 27.0-34.0 [facility] Comment on above: Performed By: #### 2 888860 #### [facility] [address] [place] [address] MCHC (RBC) [Mass/Vol] 34.3 g/dL Normal 31.4-36.0 [facility] Comment on above: Performed By: #### 2 146945 #### [facility] [address] [place] [address] MCV (RBC) [Entitic vol] 90.4 fL Normal 80.0-100.0 [facility] Comment on above: Performed By: #### 2 338963 #### [facility] [address] [place] [address] Monocytes (Bld) [#/Vol] 0.8 E9/L Normal 0.2-1.0 [facility] Comment on above: Performed By: #### 2 213152 #### [facility] [address] [place] [address] Neutrophils (Bld) [#/Vol] 3.4 E9/L Normal 2.0-7.5 [facility] Comment on above: Performed By: #### 2 862277 #### [facility] [address] [place] [address] Neutrophils/100 WBC (Bld) 53.3 % Normal 36.0-75.0 [facility] Comment on above: Performed By: #### 2 564803 #### [facility] [address] [place] [address] Platelet 272.0 E9/L Normal 150.0-500.0 [facility] Comment on above: Performed By: #### 2 948791 #### [facility] [address] [place] [address] Platelet mean volume (Bld) [Entitic vol] 9.8 fL Normal 6.4-10.8 [facility] Comment on above: Performed By: #### 2 265118 #### [facility] [address] [place] [address] RBC (Bld) [#/Vol] 4.7 E12/L Normal 4.3-5.9 [facility] Comment on above: Performed By: #### 2 917256 #### [facility] [address] [place] [address] WBC corrected for nucl RBC Auto (Bld) [#/Vol] 6.4 E9/L Normal 4.0-11.0 [facility] Comment on above: Performed By: #### 2 889349 #### [facility] [address] [place] [address] CHEMISTRYOrdered By: SYSTEM SYSTEM on 01-02-2024 Anion [...] fruits, and frozen vegetables. ? Avoid buying ooyxf-ms-fad foods, such as pre-cut fruits and vegetables and pre-made salads. ? If possible, shop around to discover where you can find the best prices. Consider other retailers such as [employer] stores, larger wholesale stores, local fruit and vegetable [employer], and [employer] markets. ? Do not shop when you [...] for buyi (more content not included)... Normal [facility] Physician Orderon 01-02-2024 Physician Order [id number] 615#1.00TIFF Normal [facility] eGFRon 01-02-2024 eGFR 94 mL/min/1.73 m2 Normal >=59 [facility] Comment on above: Order Comment: Order added by Discern Expert. Performed By: #### 1 [id number] #### [facility] [address] [place] [address] Nurse Consultation Noteon Nurse Consultation Note Reason [...] 2 cap(s), Oral, BID Flonase 0.05 mg/inh Dalton, 2 spray(s), Nasal, Daily gabapentin 300 mg [...] 09/08/2020 Recorded pneumococcal 23-valent vaccine 04/07/2005 Recorded [facility] Physician Orderon 12-29-2023 Physician Order [id number] 8#1.00TIFF [facility] Formson 12-18-2023 Forms [id number] E6#1.00TIFF [facility] Nurse Consultation Noteon Nurse Consultation Note Reason [...] 2 cap(s), Oral, BID Flonase 0.05 mg/inh Dalton, 2 spray(s), Nasal, Daily gabapentin 300 mg [...] Recorded pneumococcal 23-valent vaccine 04/07/2005 Recorded Normal [facility] Nurse Consultation Noteon Nurse Consultation Note [...] 2 cap(s), Oral, BID Flonase 0.05 mg/inh Dalton, 2 spray(s), Nasal, Daily gabapentin 300 mg [...] pneumococcal 23-valent vaccine 04/07/2005 Recorded Normal [facility] Nurse Consultation Noteon Nurse Consultation [...] 2 cap(s), Oral, BID Flonase 0.05 mg/inh Dalton, 2 spray(s), Nasal, Daily gabapentin 300 mg [...] Recorded pneumococcal 23-valent vaccine 04/07/2005 Recorded Normal [facility] Nurse Consultation Noteon Nurse Consultation Note [...] 2 cap(s), Oral, BID Flonase 0.05 mg/inh Dalton, 2 spray(s), Nasal, Daily gabapentin 300 mg [...] pneumococcal 23-valent vaccine 04/07/2005 Recorded Normal [facility] [place] Mamm Screen w/CAD if perf [...] very important to your health. The current [employer] and National Comprehensive Cancer [...] 2-Benign finding Recommendation: Normal interval follow-up Normal [facility] Consent for Treatmenton 10-08 Consent for Treatment [id number] D1#1.00TIFF Normal [facility] Nurse Consultation Noteon Nurse Consultation Note [...] 2 cap(s), Oral, BID Flonase 0.05 mg/inh Dalton, 2 spray(s), Nasal, Daily gabapentin 300 mg [...] Recorded pneumococcal 23-valent vaccine 04/07/2005 Recorded Normal [facility] Ambulatory Visit Summaryon 0 10-02-2023 Ambulatory Visit Summary ANGELA ALONZO :1955 Visit Date:10/02/2023 Ambulatory Visit Instructions Your Care Team Attending Physician - Guerita Knapp PA-C Primary Care Physician - Guerita Knapp PA-C This Is Your Medications [place] [facility] [place] (Handicapped Parking Placard) albuterol (Albuterol (Eqv-ProAir [...] mg Tab) fluticasone nasal (Flonase 0.05 mg/inh Dalton) gabapentin (gabapentin 300 mg Cap) hydrOXYzine (hydrOXYzine [...] Follow-Up Appointments Monday 10:40 AM EDT Where: [facility] [place] Normal [address] [place] [address]- \.br\ Medications\.br\ What How Much [...] Unchanged fluticasone nasal (Flonase 0.05 mg/ inh Dalton) 2 Sprays Nasal Inhalation Every day each [...] for choosing us for your care.\.br\ \.br\ [facility] Nurse Consultation Noteon Nurse Consultation Note [...] 2 cap(s), Oral, BID Flonase 0.05 mg/inh Dalton, 2 spray(s), Nasal, Daily gabapentin 300 mg [...] Recorded pneumococcal 23-valent vaccine 04/07/2005 Recorded Normal [facility] Nurse Consultation Noteon Nurse Consultation Note [...] 2 cap(s), Oral, BID Flonase 0.05 mg/inh Dalton, 2 spray(s), Nasal, Daily gabapentin 300 mg [...] pneumococcal 23-valent vaccine 04/07/2005 Recorded Normal [facility] Ambulatory Visit Summaryon 0 09-04-2023 Ambulatory Visit Summary ANGELA ALONZO:1955 Visit Date:09/04/2023 Ambulatory Visit Instructions Your Diagnosis Allergic rhinitis, seasonal Your Care Team Attending Physician - Guerita Knapp PA-C Primary Care Physician - Guerita Knapp PA-C This Is Your Medications List [facility] [place] (Handicapped Parking Placard) albuterol (Albuterol (Eqv-ProAir [...] mg Tab) fluticasone nasal (Flonase 0.05 mg/inh Dalton) gabapentin (gabapentin 300 mg Cap) hydrOXYzine (hydrOXYzine [...] Follow-Up Appointments Monday 10:40 AM EDT Where: [address] [address]- \.br\ Medications\.br\ What How Much When [...] Unchanged fluticasone nasal (Flonase 0.05 mg/ inh Dalton) 2 Sprays Nasal Inhalation Every day each [...] for choosing us for your care.\.br\ \.br\ [facility] Nurse Consultation Noteon Nurse Consultation Note [...] 2 cap(s), Oral, BID Flonase 0.05 mg/inh Dalton, 2 spray(s), Nasal, Daily gabapentin 300 mg [...] pneumococcal 23-valent vaccine 04/07/2005 Recorded Normal [facility] Provider Letteron 08-23-2023 Provider Letter [address] [facility] [place] [id number] August 23, 2023 ANGELA ALONZO [address] [place] [address] : [address] Colindres The above [...] ogist. Thank you, ARMAND Torre, VAUGHN Lopez: [facility] Nurse Consultation Noteon Nurse Consultation Note [...] 2 cap(s), Oral, BID Flonase 0.05 mg/inh Dalton, 2 spray(s), Nasal, Daily gabapentin 300 mg [...] Recorded pneumococcal 23-valent vaccine 04/07/2005 Recorded Normal [facility] Physician Referralon 024 Physician Referral [id number] 126#1.00TIFF [facility] Consultation Noteon 08-16-19 24 Consultation Note [id number] 0F#1.00TIFF [facility] Family Medicine Office/Clini c Noteon 08-16-2023 Family Medicine Office/Clinic Note Chief Complaint Surgery Clearance [facility] Staff Preoperative medical evaluation questions for a [...] 08/15/2023. The patient verbally consented to allow [facility] to record this visit. The patient is [...] sounds, n (more content not included)... Normal [facility] Comment on above: Result Comment: Elec tronically Signed By: Guerita Knapp PA-C\.br\Date and Time Signed: 08/16/23 21:29 EST\.br\Electronically Co-Signed By: Salapa, Marife C\.br\Date and Time Co-Signed: 08/14/23 14:15 EST\.br\Electronically Co-Signed [...] joint her left knee is arthritic with jwtd-wq-cjrw changes to the medial compartment as well as patellofemoral joint. [facility] Radiology Study observation (narrative) [facility] Consent for Treatmenton Consent for Treatment [id number] 94#1.00TIFF Normal [facility] Consultation Noteon 08-15-19 Consultation Note [id number] D2#1.00TIFF Normal [facility] XR Chest 2 Viewson 4 XR [...] mGy = na DAP = na Normal [facility] BMPon 08-14-2023 Calcium [Mass/Vol] 9.8 mg/dL Normal 8.9-11.1 [facility] Comment on above: Performed By: #### 1 [id number], 7816148, 1643598 ####[address] [address] Chloride [Moles/Vol] 103 mmol/L Normal 101-111 [facility] Comment on above: Performed By: #### 1 9203494, 5056349, 8393152 ####[address] [address] CO2 [Moles/Vol] 29 mmol/L Normal 21-31 [facility] Comment on above: Performed By: #### 1 2855835, 7439421, 9390672 ####[address] [address] Creatinine [Mass/Vol] 0.8 mg/dL Normal 0.5-1.3 [facility] Comment on above: Performed By: #### 1 2772294, 7589692, 7029687 ####[address] [address] Glucose [Mass/Vol] 79 mg/dL Normal 55-199 [facility] Comment on above: Performed By: #### 1 3321551, 7696000, 2682111 ####[address] [address] Potassium [Moles/Vol] 4.2 mmol/L Normal 3.5-5.3 [facility] Comment on above: Performed By: #### 1 6010086, 6238223, 4358623 ####[address] [address] Sodium [Moles/Vol] 138 mmol/L Normal 135-145 [facility] Comment on above: Performed By: #### 1 8189137, 6333863, 5359266 ####[address] [address] Urea nitrogen [Mass/Vol] 17 mg/dL Normal 5-21 [facility] Comment on above: Performed By: #### 1 8714272, 7501726, 9976563 ####[address] [address] Anion gap [Moles/Vol] 10 mmol/L Normal 6-16 [facility] Comment on above: Performed By: #### 1 3005958, 5434145, 7210630 ####[address] [address] BUN/Creat Ratio 21 No Units High 10-20 [facility] Comment on above: Performed By: #### 1 4776239, 4365771, 6543048 ####[address] [address] CBC w/ Auto Diffon 4 Basophils/100 WBC (Bld) 0.9 % Normal 0.0-2.0 [facility] Comment on above: Performed By: #### 1 5747021, 0113252, 8178485 ####[address] [address] Eosinophils/100 WBC (Bld) 2.4 % Normal 0.0-8.0 [facility] Comment on above: Performed By: #### 1 9319805, 7011418, 5452614 ####[address] [address] Erythrocyte distribution width (RBC) [Ratio] 14.4 % High 10.9-14.2 [facility] Comment on above: Performed By: #### 1 7144007, 8101415, 4300039 ####[address] [address] Hematocrit (Bld) [Volume fraction] 44.0 % Normal 34.0-46.0 [facility] Comment on above: Performed By: #### 1 4844293, 0241266, 7023805 ####[address] [address] Hemoglobin (Bld) [Mass/Vol] 14.3 g/dL Normal 12.0-16.0 [facility] Comment on above: Performed By: #### 1 5304073, 9772926, 7626046 ####[address] [address] Lymphocytes/100 WBC (Bld) 27.6 % Normal 14.0-50.0 [facility] Comment on above: Performed By: #### 1 8885651, 9849762, 1740938 ####[address] [address] MCH (RBC) [Entitic mass] 29.5 pg Normal 27.0-34.0 [facility] Comment on above: Performed By: #### 1 2155474, 4666225, 9987763 ####[address] [address] MCHC (RBC) [Mass/Vol] 32.3 g/dL Normal 31.4-36.0 [facility] Comment on above: Performed By: #### 1 3448084, 0056112, 8978082 ####[address] [address] MCV (RBC) [Entitic vol] 91.5 fL Normal 80.0-100.0 [facility] Comment on above: Performed By: #### 1 2945237, 9619734, 0101106 ####[address] [address] Monocytes/100 WBC (Bld) 11.6 % Normal 4.0-14.0 [facility] Comment on above: Performed By: #### 1 4969092, 3185654, 6627446 ####[address] [address] NEUTRO AUTO 57.5 % Normal 36.0-75.0 [facility] Comment on above: Performed By: #### 1 2368565, 3299124, 1285537 ####[address] [address] Platelet mean volume (Bld) [Entitic vol] 9.7 fL Normal 6.4-10.8 [facility] Comment on above: Performed By: #### 1 9902660, 9269677, 9688797 ####[address] [address] Basophil Absolute 0.1 E9/L Normal 0.0-0.2 [facility] Comment on above: Performed By: #### 1 8402958, 0842685, 8966359 ####[address] [place] [address] Eos Absolute 0.1 E9/L Normal 0.0-0.5 [facility] Comment on above: Performed By: #### 1 7935161, 0610483, 2430254 ####[address] [place] [address] Lymph Absolute 1.6 E9/L Normal 1.0-4.0 [facility] Comment on above: Performed By: #### 1 1696333, 6808126, 4482861 ####[address] [address] Wythe Absolute 0.7 E9/L Normal 0.2-1.0 [facility] Comment on above: Performed By: #### 1 6745406, 3992394, 2923366 ####[address] [address] Neutro Absolute 3.4 E9/L Normal 2.0-7.5 [facility] Comment on above: Performed By: #### 1 8396878, 4389503, 6505662 ####[address] [address] Platelet 291.0 E9/L Normal 150.0-500.0 [facility] Comment on above: Performed By: #### 1 1808345, 7849871, 8872463 ####[address] [place] [address] RBC 4.8 E12/L Normal 4.3-5.9 [facility] Comment on above: Performed By: #### 1 5195110, 8463908, 3304548 ####[address] [place] [address] WBC 5.8 E9/L Normal 4.0-11.0 [facility] Comment on above: Performed By: #### 1 8879953, 2303681, 4591859 ####[address] [address] [place] [address] CHEMISTRYOrdered By: SYSTEM SYSTEM on 08-14-2023 Anion [...] mg/mg High 10 - 20 Remisol Chem [facility] BMPon 08-14-2023 [facility] AGAP 10 [facility] BUN/CREAT RATIO 21 High [facility] Interpretation and review of laboratory results Abnormal [facility] Original Ordering Provider: CORRIE RIDERCENTINELA [facility] MAR[facility] CAMPUSBALDOMERO [facility] CBC W/ AUTO DIFFon Basophils (Bld) [#/Vol] 0.1 10*3/uL [facility] EOS ABSOLUTE 0.1 [facility] Interpretation and review of laboratory results Abnormal [facility] LYMPH ABSOLUTE 1.6 [facility] MONO ABSOLUTE 0.7 [facility] NEUTRO ABSOLUTE 3.4 [facility] Platelets (Bld) [#/Vol] 291.0 10*3/uL [facility] RBC (Bld) [#/Vol] 4.8 10*6/uL [facility] WBC (Bld) [#/Vol] 5.8 10*3/uL [facility] Original Ordering Provider: CORRIE GREEN [facility] EGFRon 08-14-2023 [facility] EGFR 81 - PINF [facility] Order added by Discern Expert. Original Ordering Provider: CORRIE Colindres [facility] HEMATOLOGYOrdered By: SYSTEM SYSTEM on 08-14-2023 Basophil [...] Normal 80.0 - 100.0 fL Remisol Heme [place] Absolute 0.7 E9/L Normal 0.2 - 1.0 [...] Remisol H jaye No Panel Informationon 08-14 [facility] Patient Educationon 08-14-19 Patient Education Orthopedics Bunion [...] and water are not available, use hand animation camera operator. ? Change your dressing as told [...] ask your health care provider. ? Take ahoc-ysi-kjohxau and prescription medicines only as told by your health care provider. ? Your medicines may cause constipation. To prevent or treat constipation, you may need to: ? Drink enough fluid to keep your urine pale yellow. ? Take pako-ftn-cxjlkgv or prescription medicines. ? Eat foods that are high in fiber, such as beans, whole grains, and fresh fruits and vegetables. ? Limit foods that are high in fat and processed sugars, such as fried or sweet foods. ? Do not wear high heels or tight-fitting shoes, even after you heal. ? K (more content not included)... Normal [facility] Physician Orderon 08-14-2023 Physician Order [id number] 50#1.00TIFF Normal [facility] eGFRon 08-14-2023 eGFR 81 mL/min/1.73 m2 Normal >=59 [facility] Comment on above: Order Comment: Order added by Discern Expert. Performed By: #### 1 [id number], 0639521, 4596219 ####[facility] [address] [place] [address] Nurse Consultation Noteon Nurse Consultation Note Reason [...] 2 cap(s), Oral, BID Flonase 0.05 mg/inh Dalton, 2 spray(s), Nasal, Daily gabapentin 300 mg [...] pneumococcal 23-valent vaccine 04/07/2005 Recorded Normal [facility] Nurse Consultation Noteon Nurse Consultation [...] 2 cap(s), Oral, BID Flonase 0.05 mg/inh Dalton, 2 spray(s), Nasal, Daily gabapentin 300 mg [...] Recorded pneumococcal 23-valent vaccine 04/07/2005 Recorded Normal [facility] Physician Orderon 08-07-2023 Physician Order [id number] 754#1.00TIFF [facility] Nurse Consultation Noteon Nurse Consultation Note Reason [...] 2 cap(s), Oral, BID Flonase 0.05 mg/inh Dalton, 2 spray(s), Nasal, Daily gabapentin 300 mg [...] pneumococcal 23-valent vaccine 04/07/2005 Recorded Normal [facility] Nurse Consultation Noteon Nurse Consultation [...] 2 cap(s), Oral, BID Flonase 0.05 mg/inh Dalton, 2 spray(s), Nasal, Daily gabapentin 300 mg [...] pneumococcal 23-valent vaccine 04/07/2005 Recorded Normal [facility] Family Medicine Office/Clini c Noteon 07-10-2023 [...] with voice recognition artificial intelligence software, specifically [place], [employer] and or [employer]. Substitutions may have occurred due to the inherent limitations of voice recognition and artificial intelligence software. Patient verbalized understanding and is agreeable to plan and course of treatment. This documentation was completed by voice-activated device and software. Inaccuracies compared to the original dictation of this provider are possible although this document has been overread and corrected. This note has been generated by [employer] and edited by Adarsh Chicas/ Adia Gao, Quality Pig Breeder. Follow-up With When Contact Information Guerita Knapp PA-C Only if needed [address] [place] [phone] Additional Instructions: Only if needed Patient Education Budget-Friendly Healthy Eating Problem List/Past Medical History Ongoing Abnormal ECG Allergic rhinitis, seasonal Asthma, moderate persistent B12 nutritional deficiency BMI 34.0-34.9,adult Diastolic dysfunctio (more content not included)... Normal [facility] Comment on above: Result Comment: Elec [...] fruits, and frozen vegetables. ? Avoid buying oxlva-ga-oox foods, such as pre-cut fruits and vegetables [...] for buyi (more content not included)... Normal [facility] Ambulatory Visit Summaryon 1 08-27-2022 Ambulatory Visit Summary ANGELA ALONZO Elvin :1955 Visit Date:06/26/2023 Ambulatory Visit Instructions Your Diagnosis Perennial allergic rhinitis Your Care Team Attending Physician - RITU HALL, Vikram Primary Care Physician - RITU HALL FAAFP, Esperanza Carmichael [facility] (Handicapped Parking Placard) albuterol (Albuterol (Eqv-ProAir [...] mg Tab) fluticasone nasal (Flonase 0.05 mg/inh Dalton) gabapentin (gabapentin 300 mg Cap) hydrOXYzine (hydrOXYzine [...] Follow-Up Appointments Monday 10:40 AM EST Where: [facility] [place] Normal [address] [place], [place] [id number]- \.br\ Medications\.br\ What How Much When Instructions\.br\ [...] Unchanged fluticasone nasal (Flonase 0.05 mg/ inh Dalton) 2 Sprays Nasal Inhalation Every day each [...] for choosing us for your care.\.br\ \.br\ [facility] Nurse Consultation Noteon Nurse Consultation Note [...] 2 cap(s), Oral, BID Flonase 0.05 mg/inh Dalton, 2 spray(s), Nasal, Daily gabapentin 300 mg [...] pneumococcal 23-valent vaccine 04/07/2005 Recorded Ton [facility] Nurse Consultation Noteon Nurse Consultation [...] 2 cap(s), Oral, BID Flonase 0.05 mg/inh Dalton, 2 spray(s), Nasal, Daily gabapentin 300 mg [...] pneumococcal 23-valent vaccine 04/07/2005 Recorded Normal [facility] Nurse Consultation Noteon Nurse Consultation [...] 2 cap(s), Oral, BID Flonase 0.05 mg/inh Dalton, 2 spray(s), Nasal, Daily gabapentin 300 mg [...] Recorded pneumococcal 23-valent vaccine 04/07/2005 Recorded Normal [facility] Nurse Consultation Noteon Nurse Consultation Note [...] 2 cap(s), Oral, BID Flonase 0.05 mg/inh Dalton, 2 spray(s), Nasal, Daily gabapentin 300 mg [...] 09/08/2020 Recorded pneumococcal 23-valent vaccine 04/07/2005 Recorded [facility] Nurse Consultation Noteon Nurse Consultation Note Reason [...] 2 cap(s), Oral, BID Flonase 0.05 mg/inh Dalton, 2 spray(s), Nasal, Daily gabapentin 300 mg [...] pneumococcal 23-valent vaccine 04/07/2005 Recorded Normal [facility] Nurse Consultation Noteon Nurse Consultation [...] 2 cap(s), Oral, BID Flonase 0.05 mg/inh Dalton, 2 spray(s), Nasal, Daily gabapentin 300 mg [...] Recorded pneumococcal 23-valent vaccine 04/07/2005 Recorded Normal [facility] Consultation Noteon 05-11-20 Consultation Note [id number] #[id number] Normal [facility] Ambulatory Visit Summaryon 1 07-10-2022 Ambulatory [...] Esperanza Carmichael This Is Your Medications List [facility] [place] (Handicapped Parking Placard) albuterol (Albuterol (Eqv-ProAir [...] mg Tab) fluticasone nasal (Flonase 0.05 mg/inh Dalton) gabapentin (gabapentin 300 mg Cap) hydrOXYzine (hydrOXYzine [...] Follow-Up Appointments Monday 10:40 AM EST Where: [facility] [place] [id number] \.br\ Medications\.br\ What How Much When Instructions\.br\ [...] Unchanged fluticasone nasal (Flonase 0.05 mg/ inh Dalton) 2 Sprays Nasal Inhalation Every day each [...] numbers. This can be done either in Micronesian ([place] or metric measurements. Note that charts and online BMI calculators are available to help you find your BMI quickly and easily without having to do these calculations yourself.\.br\ To calculate your BMI in Micronesian ([place] measurements:\.br \ \.br\ 1. \.br\ Measure [...] Disease Control and Prevention: www.cdc.gov\.br\ ? \.br\ [place] Heart [employer]: www.heart.org\.br \ ? \.br\ National Heart, Lung, and Blood [place]: www.nhlbi.nih.gov \.br\ Summary\.br\ ? \.br\ Body mass index (BMI) is a number that is calculated from a person's weight and height.\.br\ ? \.br\ BMI may help estimate how much of a person's weight is composed of fat. BMI can help identify those who may be at higher risk for certain medical problems.\.br\ ? \.br\ BMI can be measured using Micronesian measurements or metric measurements.\.br \ ? \.br\ BMI charts are used t [facility] Ambulatory Visit Summary ANGELA ALONZO :1955 [...] Esperanza Carmichael This [facility] (Handicapped Parking Placard) albuterol (Albuterol (Eqv-ProAir [...] mg Tab) fluticasone nasal (Flonase 0.05 mg/inh Dalton) gabapentin (gabapentin 300 mg Cap) hydrOXYzine (hydrOXYzine [...] Follow-Up Appointments Monday 10:40 AM EST Where: [facility] [place] Normal [address] [place] [phone] \.br\ Medications\.br\ What How Much When Instructions\.br\ [...] Unchanged fluticasone nasal (Flonase 0.05 mg/ inh Dalton) 2 Sprays Nasal Inhalation Every day each [...] choosing us for your care.\.br\ \.br\ [facility] Family Medicine Office/Clini c Noteon 05-10-2023 [...] of clutter to prevent tripping and/or falling. [place] Advance Directives reviewed. Documents remato be completed, [...] PCP visit. [place] [facility] No concerns with bowel/ bladder. Colonoscopy last [...] Stressed impor (more content not included)... Normal [facility] Comment on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 [facility] Comment on above: Result Comment: 2022: 61 09-26-2020 SARS-CoV-2 (COVID-19 ) mRNA-1273 vaccine [employer] [facility] 09-08-2020 SARS-CoV-2 (COVID-19 ) mRNA-8935 vaccine Esperanza CHANEY [facility] 04-07-2005 pneumococcal polysaccharide vaccine, 23 valent Vikram CHANEY [facility] NEGATED: Highlighted row has not occurred!05-10-2023 pneumococcal polysaccharide vaccine, 23 valent Esperanza CHANEY [facility] NEGATED: Highlighted row has not occurred!05-10-2023 pneumococcal conjugate vaccine, 13 valent Esperanza CHANEY [facility] NEGATED: Highlighted row has not occurred!05-10-2023 influenza virus vaccine, unspecified formulation Esperanza CHANEY [facility] NEGATED: Highlighted row has not occurred!09-20-2022 influenza virus vaccine, unspecified formulation Guerita Mackzier [facility] NEGATED: Highlighted row has not occurred!06-27-2022 influenza virus vaccine, unspecified formulation Nayan Cherry [facility] [place] NEGATED: Highlighted row has not occurred!05-10-2022 influenza virus vaccine, unspecified formulation Esperanza CHANEY [facility] NEGATED: Highlighted row has not occurred!05-10-2022 pneumococcal polysaccharide vaccine, 23 valent Esperanza CHANEY [facility] Payers Date Payer Category Payer Medicare MEDICARE MEDICAR E PART B [id number] 2021-[place] [address] Medicare [id number] 2021 Unknown [id number] [id number] .[id number] 2021 Medicare [id number] 1.2.840.158675.1.13.239.2.7.3 .816600.315 2020 Unknown 2020 Unknown [id number] 2019 Unknown [id number] 2019 Unknown [facility] LD[facility] RULE xxxxxxxxx 2019-Present xxxxxxxxx 1.2.840.327608.1.13.385.2.7.3 .023618.315 2019 Unknown [id number] 1956 Unknown [id number] 2.16.840.1.824639.3.579.2.902 1956 Unknown [id number] 2.16.840.1.553639.3.579.2.174 1956 Unknown [id number] 2.16.840.1.277807.3.579.2.174 1956 Unknown [id number] 2.16.840.1.301516.3.579.2.174 1956 Unknown [id number] 2.16.840.1.446159.3.579.2.174 1956 Unknown [id number] 2.16.840.1.772695.3.579.2.174 1956 Unknown [id number] 2.16.840.1.271062.3.579.2.174 1956 Unknown [id number] 2.16.840.1.612757.3.579.2.174 1956 Unknown [id number] 2.16.840.1.805385.3.579.2.174 1956 Unknown [id number] 2.16.840.1.561878.3.579.2.174 1956 Unknown [id number] 2.16.840.1.151602.3.579.2.174 1956 Unknown [id number] 2.16.840.1.263317.3.579.2.174 1956 Unknown [id number] 2.16.840.1.273631.3.579.2.174 1956 Unknown [id number] 2.16.840.1.368720.3.579.2.174 1956 Unknown [id number] 2.16.840.1.245669.3.579.2.174 1956 Unknown [id number] 2.16.840.1.737917.3.579.2.174 1956 Unknown [id number] 2.16.840.1.659356.3.579.2.356 1956 Unknown [id number] 2.16.840.1.415146.3.579.2.727 1956 Unknown [id number] 2.16.840.1.165118.3.579.2.727 1956 Unknown [id number] 2.16.840.1.298534.3.579.2.727 1956 Unknown [id number] 2.16.840.1.820675.3.579.2.727 1956 Unknown [id number] 2.16.840.1.360022.3.579.2.727 1956 Unknown [id number] 2.16.840.1.701074.3.579.2.727 1956 Unknown [id number] 2.16.840.1.632701.3.579.2.727 1956 Unknown [id number] 2.16.840.1.946476.3.579.2.727 1956 Unknown [id number] 2.16.840.1.490474.3.579.2. 1956 Unknown [id number] 2.16.840.1.449102.3.579.2 1956 Unknown [id number] 2.16.840.1.459258.3.579.2. 1956 Unknown [id number] 2.16.840.1.851220.3.579.2 1956 Unknown [id number] 2.16.840.1.776045.3.579.2. 1956 Unknown [id number] 2.16.840.1.050096.3.579.2 1956 Unknown [id number] 2.16.840.1.410173.3.579.2 1956 Unknown [id number] 2.16.840.1.925991.3.579.2 1956 Unknown [id number] 2.16.840.1.452664.3.579.2 1956 Unknown [id number] 2.16.840.1.749276.3.579.2 1956 Unknown [id number] 2.16.840.1.248471.3.579.2 1956 Unknown [id number] 2.16.840.1.004080.3.579.2 1956 Unknown [id number] 2.16.840.1.322889.3.579.2 1956 Unknown [id number] 2.16.840.1.953515.3.579.2 1956 Unknown [id number] 2.16.840.1.899514.3.579.2 1956 Unknown [id number] 2.16.840.1.644128.3.579.2.72 1956 Unknown [id number] 2.16.840.1.432587.3.579.2. 1956 Unknown [id number] 2.16.840.1.327286.3.579.2. 1956 Unknown [id number] 2.16.840.1.663950.3.579.2. 1956 Unknown [id number] 2.16.840.1.192277.3.579.2. 1956 Unknown [id number] 2.16.840.1.743015.3.579.2 1956 Unknown [id number] 2.16.840.1.017107.3.579.2 1956 Unknown [id number] 2.16840.1.862145.3.579.2 1956 Unknown [id number] 2.16840.1.850205.3.579.2 1956 Unknown [id number] 2.16840.1.764857.3.579.2 1956 Unknown [id number] 2.16.840.1.037841.3.579.2. 1956 Unknown [id number] 2.16.840.1.545162.3.579.2. 1956 Unknown [id number] 2.16.840.1.920658.3.579.2. 1956 Unknown [id number] 2.16.840.1.603668.3.579.2 1956 Unknown [id number] 2.16.840.1.981089.3.579.2. 1956 Unknown [id number] 2.16.840.1.117882.3.579.2 1956 Unknown [id number] 2.16.840.1.277745.3.579.2.727 1956 Unknown [id number] 2.16.840.1.339579.3.579.2.727 1956 Unknown [id number] 2.16.840.1.497601.3.579.2.125 9 1956 Unknown [id number] 2.16.840.1.279761.3.579.2.125 9 1956 Unknown [id number] 2.16.840.1.252791.3.579.2.125 9 1956 Unknown [id number] 2.16.840.1.022770.3.579.2.125 9 1956 Unknown [id number] 2.16840.1.242942.3.579.2.125 9 1956 Unknown [id number] 2.16.840.1.793049.3.579.2.125 9 1956 Unknown [id number] 2.16.840.1.952456.3.579.2.125 9 1956 Unknown [id number] 2.16.840.1.773409.3.579.2.125 9 1956 Unknown [id number] 2.16840.1.935792.3.579.2.125 9 1956 Unknown [id number] 2.16.840.1.864303.3.579.2.125 9 1956 Unknown [id number] 2.16.840.1.194775.3.579.2.125 9 1956 Unknown [id number] 2.16.840.1.452319.3.579.2.125 9 1956 Unknown [id number] 2.16.840.1.379215.3.579.2.125 9 1956 Unknown [id number] 2.16.840.1.259510.3.579.2.125 9 1956 Unknown [id number] 2.16.840.1.032426.3.579.2.125 9 1956 Unknown [id number] 2.16.840.1.156222.3.579.2.125 9 1956 Unknown [id number] 2.16.840.1.492261.3.579.2.125 9 1956 Unknown [id number] 2.16.840.1.183705.3.579.2.125 9 1956 Unknown [id number] 2.16.840.1.751191.3.579.2.125 9 1956 Unknown [id number] 2.16.840.1.077036.3.579.2.125 9 1956 Unknown [id number] 2.16.840.1.238363.3.579.2.125 9 1956 Unknown [id number] 2.16.840.1.377282.3.579.2.125 9 1956 Unknown [id number] 2.16.840.1.831578.3.579.2.125 9 1956 Unknown [id number] 2.16.840.1.905117.3.579.2.125 9 1956 Unknown [id number] 2.16.840.1.929809.3.579.2.125 9 1956 Unknown [id number] 2.16.840.1.621046.3.579.2.125 9 1956 Unknown [id number] 2.16.840.1.015893.3.579.2.125 9 1956 Unknown [id number] 2.16.840.1.854014.3.579.2.125 9 1956 Unknown [id number] 2.16.840.1.659544.3.579.2.125 9 1956 Unknown [id number] 2.16.840.1.531112.3.579.2.125 9 1956 Unknown [id number] 2.16.840.1.428697.3.579.2.125 9 1956 Unknown [id number] 2.16.840.1.146613.3.579.2.727 1956 Unknown [id number] 2.16.840.1.790470.3.579.2.727 1956 Unknown [id number] 2.16.840.1.569865.3.579.2.727 1956 Unknown [id number] 2.16.840.1.861041.3.579.2.727 1956 Unknown [id number] 2.16.840.1.516263.3.579.2.727 1956 Unknown [id number] 2.16.840.1.852496.3.579.2.727 1956 Unknown [id number] 2.16.840.1.216811.3.579.2.727 Social History Date Type Detail Facility Start: 12-28-2019 End: 03-01-2024 Tobacco smoking status [facility] Never smoker [facility] Comment on above: Denies use. Start: 12-28-2019 End: 08-16-2023 Alcohol intake Lifetime non-drinker (finding) [facility] Start: 12-28-2019 History SDOH Alcohol Frequency 1 [facility] Start: 1955 Sex Assigned At Not on file [facility] Exposure to SARS-CoV -2 (event) Not sure [facility] Tobacco [facility] status [facility] on above: Denies use. Start: 08-14-2023 End: 08-16-2023 [facility] [place] Tobacco smoking stat [facility] Tobacco smoking consumption unknown [facility] Work Phone: Start: 01-03-2023 Tobacco use and exposure Smokeless tobacco non-user [facility] Start: 08-14-2023 End: 08-16-2023 History of Social function [facility] Medical Equipment Procedure Code Equipment Code Equipment Origin al Text Equipment Identifier Dates KNEE TOTAL ARTHROPLASTY Joan Warner DO 01/03/22 Non Biological Knee R {[id number] FDA Start: 01-03-2022 Unknown Unknown 07/07/22 [...] Assessment Result Facility 03-01-2024 Functional Status N/A [facility] 01-02-2024 Functional Status N/A [facility] 10-30-2023 Functional Status N/A [facility] 08-14-2023 Functional Status N/A [facility] 07-05-2023 Functional Status N/A [facility] 05-10-2023 Functional Status N/A [facility] 09-20-2022 Functional Status N/A [facility] 07-07-2022 Functional Status N/A [facility] 06-27-2022 Functional Status N/A [facility] [place] 05-10-2022 Functional Status N/A [facility] 01-18-2022 Functional Status N/A [facility] Clinical Notes 12-10-2019 to 03-25-2024 JUSTINO Persaud - 08/16/2023 8:15 AM ESTPatient Instructions Note Date & Type Note Facility 03-25-2024 Note Nurse Consultation N ote Reason for Visit Allergy injections Medications Albuterol [...] 2 cap(s), Oral, BID Flonase 0.05 mg/inh [place], 2 spray(s), Nasal, Daily Handicapped Parking Placard, [...] 09/08/2020 Recorded pneumococcal 23-valent vaccine 04/07/2005 Recorded [facility] 03-13-2024 Note Nurse Consultation N ote Reason [...] 2 cap(s), Oral, BID Flonase 0.05 mg/inh Dalton, 2 spray(s), Nasal, Daily Handicapped Parking Placard, [...] 09/08/2020 Recorded pneumococcal 23-valent vaccine 04/07/2005 Recorded [facility] 02-26-2024 Note Nurse Consultation N ote [...] 2 cap(s), Oral, BID Flonase 0.05 mg/inh Dalton, 2 spray(s), Nasal, Daily Handicapped Parking Placard, [...] 09/08/2020 Recorded pneumococcal 23-valent vaccine 04/07/2005 Recorded [facility] 02-12-2024 Note Nurse Consultation N ote [...] 2 cap(s), Oral, BID Flonase 0.05 mg/inh Dalton, 2 spray(s), Nasal, Daily Handicapped Parking Placard, [...] 09/08/2020 Recorded pneumococcal 23-valent vaccine 04/07/2005 Recorded [facility] 01-29-2024 Note Nurse Consultation N ote [...] 2 cap(s), Oral, BID Flonase 0.05 mg/inh Dalton, 2 spray(s), Nasal, Daily Handicapped Parking Placard, [...] 09/08/2020 Recorded pneumococcal 23-valent vaccine 04/07/2005 Recorded [facility] 01-15-2024 Note Nurse Consultation N ote [...] 2 cap(s), Oral, BID Flonase 0.05 mg/inh Dalton, 2 spray(s), Nasal, Daily Handicapped Parking Placard, [...] 09/08/2020 Recorded pneumococcal 23-valent vaccine 04/07/2005 Recorded [facility] 01-02-2024 Hospital Discharge instructions Patient Education [...] frozen fruits, and frozen vegetables. Avoid buying [id number] foods, such as pre-cut fruits and vegetables [...] provider. Document Revised: 04/08/2021 Document Reviewed: 04/08/2021 [facility] Patient Education 2022 Rehab Management Services. Follow Up Care 01/01/2024 08:21:19 With:Guerita Knapp PA-C Address: [address] [place] [phone] When:Within 6 Month(s) Comments:For check up [facility] [place] 08-16-2023 History of Present [...] Past Medical History: Diagnosis Date Arthritis Asthma ([facility]) Depression ([facility]) Osteoporosis ([facility]) Rhinitis PAST SURGICAL HISTORY: Past Surgical History: [...] Wheezing, 100 EA, Refill(s) 2, [facility] [id number], 165, cm, 07/07/22 9:42:00 EST, Height/Length Dosing, [...] joint her left knee is arthritic with iwri-uo-cpgz changes to the medial compartment as well [...] organs. JUSTINO Persaud documented in this encounter [facility] 08-16-2023 Instructions JUSTINO Persaud - [...] body and organs. documented in this encounter [facility] 08-14-2023 Hospital Discharge instructions Patient [...] and water are not available, use hand animation camera operator. ?Change your dressing as told by [...] quitting, ask your health care provider. Take bvxn-ikm-zynuyck and prescription medicines only as told by your health care provider. Your medicines may cause constipation. To prevent or treat constipation, you may need to: ?Drink enough fluid to keep your urine pale yellow. ?Take kuga-arf-dccnxuo or prescription medicines. ?Eat foods that are [...] provider. Document Revised: 10/30/2020 Document Reviewed: 10/30/2020 [employer] Patient Education 2022 Rehab Management Services. Follow Up Care 08/07/2023 16:27:59 With:Guerita Knapp PA-C Address: [address] [place] [phone] When: only if needed Comments:Only if needed [facility] [place] 07-05-2023 Hospital Discharge instructions [...] frozen fruits, and frozen vegetables. Avoid buying mcknm-cy-mma foods, such as pre-cut fruits and vegetables and pre-made salads. If possible, shop around to discover where you can find the best prices. Consider other retailers such as [employer] stores, larger wholesale stores, local fruit and vegetable stands, and [employer] markets. Do not shop when you are [...] provider. Document Revised: 04/08/2021 Document Reviewed: 04/08/2021 [employer] Patient Education 2022 Rehab Management Services. Follow Up Care 07/04/2023 08:35:54 With:Ra MENDES, Guerita Amor. Address: [address] [place], [place] [phone]- [phone] When: only if needed Comments:Only if needed [facility] [place] 05-10-2023 Hospital Discharge instructions Patient [...] numbers. This can be done either in Micronesian (U.S.) or metric measurements. Note that charts and online BMI calculators are available to help you find your BMI quickly and easily without having to do these calculations yourself. To calculate your BMI in Micronesian (U.S.) measurements: 1.Measure your weight in pounds [...] Centers for Disease Control and Prevention: www.cdc.gov [place] Heart Association: www.heart.org National Heart, Lung, and Blood [place]: www.nhlbi.nih.gov Summary Body mass index (BMI) is a number that is calculated from a person's weight and height. BMI may help estimate how much of a person's weight is composed of fat. BMI can help identify those who may be at higher risk for certain medical problems. BMI can be measured using Micronesian measurements or metric measurements. BMI charts are used to identify whether you are underweight, normal weight, overweight, or obese. This information is not intended to replace advice given to you by your health care provider. Make sure you discuss any questions you have with your health care provider. Document Revised: 03/18/2020 Document Reviewed: 01/24/2020 [employer] Patient Education 2022 Rehab Management Services. 05/10/2023 09:06:12 Dyslipidemia Dyslipidemia Dyslipidemia is an [...] quitting, ask your health care provider. Take iamf-myz-extrrcc and prescription medicines only as told by [...] provider. Document Revised: 08/30/2021 Document Reviewed: 08/30/2021 [employer] Patient Education 2022 Rehab Management Services. 05/10/2023 09:06:07 Insomnia Insomnia Insomnia is a [...] go back to bed. General instructions Take sctj-ppr-wkqbbja and prescription medicines only as told by [...] the National Suicide Prevention Lifeline at or 542. This is open 24 hours a day. Text the Crisis Text Line at 243955. Summary Insomnia is a sleep disorder that [...] provider. Document Revised: 06/06/2022 Document Reviewed: 06/06/2022 [employer] Patient Education 2022 Rehab Management Services. 05/10/2023 09:06:04 Managing Depression, Adult Managing Depression, [...] pray, or go to a place of jew. Do some deep breathing. To do this, [...] sugars, or salt (sodium). General instructions Take kekv-lfp-vnnrgag and prescription medicines only as told by [...] (ADAA): www.adaa.org Mental Health Su: www.mentalhealthamerica.net National Scalf on Mental Illness: www.tyrone.org Contact a health [...] department or: Call your local emergency services (058 in the U.S.). Call a suicide crisis helpline, such as the National Suicide Prevention Lifeline at or 046 in the U.S. This is open 24 hours a day in the U.S. Text the Crisis Text Line at 817831 (in the U.S.). Summary If you are [...] provider. Document Revised: 01/19/2022 Document Reviewed: 05/06/2020 [employer] Patient Education 2022 [employer] 05/10/2023 09:05:58 Asthma, Adult Asthma, Adult Asthma [...] breathing (shortness of breath). Excessive nighttime or lead blender coughing. Chest tightness. Tiredness (fatigue) with minimal [...] condition. Follow these instructions at home: Take jpwc-ahg-yssatvi and prescription medicines only as told by [...] provider. Document Revised: 04/13/2022 Document Reviewed: 04/04/2022 [employer] Patient Education 2022 Rehab Management Services. [facility] [place] 07-07-2022 Hospital Discharge instructions Patient Education 07/07/2022 [...] 03/22/2005 Document Revised: 10/11/2018 Document Reviewed: 10/11/2018 [employer] Patient Education 2020 Rehab Management Services. 07/07/2022 12:57:04 Colonoscopy, Adult, Care After Colonoscopy, [...] a slower pace than normal. ?Eat soft, zqkz-qb-mmyxyj foods. Take zffg-vkc-dhrxyoh or prescription medicines only as told by [...] 02/07/2005 Document Revised: 04/18/2018 Document Reviewed: 09/06/2016 [employer] Patient Education 2020 [employer] Follow Up Care 06/27/2022 14:47:12 With:Nayan Cherry Address:Unknown When: Unknown [facility] 07-07-2022 Evaluation + Plan note Extrac katerine from: Title:Pre-anesthesia - Endoscopy Author:Best Aguilar Jr., DO Date:07/07/22 Plan [place] Society of Anesthesiologists (ASA) physical status classification: Class II. Anesthetic Preoperative Plan Anesthesia: General. . Anesthetic plan, risks, benefits, and alternatives discussed with the patient and/or family. Patient verbalized understanding. Future Appointments Appointment Date:05/10/2023 08:00:00 AM Scheduled Provider: Location:[facility] [place] Appointment Type:FM Medicare Wellness Subsequent Future Scheduled Tests Laboratory* BUN 01/04/22 * Creatinine 01/04/22 * Electrolyte Panel 01/04/22 * CBC w/ Auto Diff 01/04/22 Radiology* CV Cardiovascular 12/13/21 [facility]12[facility]2022 Hospital Discharge instructions Patient Education 06/27/2022 [...] food choices, such as grocery stores and [employer]. What are the signs or symptoms? The [...] and how much exercise you get. Take ftnw-hjh-xlrhrvp and prescription medicines only as told by [...] 08/03/2005 Document Revised: 02/28/2019 Document Reviewed: 02/28/2019 [employer] Patient Education 2019 Rehab Management Services. [facility] [place] 11-01-2022 Hospital Discharge instructions Patient Education 05/10/2022 [...] your health care provider or diet and nutrition educator (dietitian) before starting any calcium supplements. Calcium [...] mg per 8 oz serving. Grains Fortified mjnao-se-xvh cereals, 100 1,000 mg per 8 oz serving. Fortified frozen waffles, 200 mg in two waffles. Meats and other proteins Sardines, canned with bones, 325 mg per 3 oz serving. [place], canned with bones, 180 mg per 3 oz serving. Canned shrimp, 125 mg per 3 oz serving. Baked beans, 160 mg per 4 oz serving. Dairy Yogurt, plain, low-fat, 310 mg per 6 oz serving. Milk, 300 mg per 8 oz serving. Togolese cheese, 195 mg per 1 oz serving. [...] 02/07/2005 Document Revised: 06/19/2018 Document Reviewed: 06/19/2018 [employer] Patient Education 2020 Rehab Management Services. 05/10/2022 08:50:00 Budget-Friendly Healthy Eating Budget-Friendly Healthy [...] frozen fruits, and frozen vegetables. Avoid buying ckosd-xo-ktx foods, such as pre-cut fruits and vegetables and pre-made salads. If possible, shop around to discover where you can find the best prices. Consider other retailers such as dollar stores, larger wholesale stores, local fruit and vegetable [employer], and [employer] markets. Do not shop when you are [...] 02/27/2015 Document Revised: 06/27/2018 Document Reviewed: 06/27/2018 [employer] Patient Education 2020 [employer] 05/10/2022 08:49:58 BMI for Adults BMI [...] height. This can be done either in Micronesian (U.S.) or metric measurements. Note that charts are available to help you find your BMI quickly and easily without having to do these calculations yourself. To calculate your BMI in Micronesian (U.S.) measurements, your health care provider will: [...] medical problems. BMI can be measured using Micronesian measurements or metric measurements. To interpret your [...] 03/07/2005 Document Revised: 06/08/2018 Document Reviewed: 05/09/2018 [employer] Patient Education 2020 Rehab Management Services. [facility] [place] 08-15-2022 History of Present illness Narrative* Otis EdwardTAYLOR - 02/21/2022 10:30 AM EDT Images from the original note were not included. [facility] Outpatient Physical Therapy Daily Note Date: [...] - MET STG Goal 3 Status:: Met Penitentiary Goals Time Frame for moth exterminator goals : 12 moth exterminator goal 1: Pt to increase R knee flexion MMT to 4+/5 to help with amb and stairs. - MET LTG Goal 1 Status:: Met moth exterminator goal 2: Pt to increase tandem stance balance to 10 s 2:3 trials for improved stability and safe amb. - MET LTG Goal 2 Status:: Met FCI goal 3: Pt to be able to amb on unlevel surface without an AD and no deviations for 150ft. Post Treatment Pain: 0/10 Time In: 1035 Time Out : 1110 Timed Code Treatment Minutes: 35 Minutes Total Treatment Time: 35 Minutes Otis Edward PTA Date: 02/21/2022 documented [facility] Phone: 1(923) 969-235208-12-2022 History of Present illness Narrative* Otis Edward PTA - 02/18/2022 10:30 AM EDT Images from the original note were not included. [facility] Outpatient Physical Therapy Daily Note Date: [...] - MET STG Goal 3 Status:: Met Penitentiary Goals Time Frame for FCI goals : 12 moth exterminator goal 1: Pt to increase R knee flexion MMT to 4+/5 to help with amb and stairs. - MET LTG Goal 1 Status:: Met moth exterminator goal 2: Pt to increase tandem stance balance to 10 s 2:3 trials for improved stability and safe amb. moth exterminator goal 3: Pt to be able to amb on unlevel surface without an AD and no deviations for 150ft. Post Treatment Pain: 0/10 Time In: 1035 Time Out : 1115 Timed Code Treatment Minutes: 40 Minutes Total Treatment Time: 40 Minutes Otis Edward, DIRECTOR OF PHYSICAL EDUCATION Date: 02/18/2022 documented in this encounterBON [employer] Phone: 1(622) 841-327308-08-2022 History of Present illness Narrative* Marcella Dover, DIRECTOR OF PHYSICAL EDUCATION - 02/14/2022 9:45 AM EDT Images from the original note were not included. [facility] Outpatient Physical Therapy Daily Note Date: [...] - MET STG Goal 3 Status:: Met Impregnator Operator Goals Time Frame for moth exterminator goals : 12 FCI goal 1: Pt to increase R knee flexion MMT to 4+/5 to help with amb and stairs. FCI goal 2: Pt to increase tandem stance balance to 10 s 2:3 trials for improved stability and safe amb. FCI goal 3: Pt to be able to amb on unlevel surface without an AD and no deviations for 150ft. Post Treatment Pain: 0/10 Time In: 0946 Time Out: 1034 Timed Code Treatment Minutes: 48 Minutes Total Treatment Time: 48Minutes Marcella Dover, DIRECTOR OF PHYSICAL EDUCATION Date: 02/14/2022 documented in this encounterBON [employer] Phone: 1(280) 663-669808-05-2022 History of Present illness Narrative* Georgia Pham - 02/11/2022 1:00 PM EDT [facility] Outpatient Physical Therapy Daily Note Date: [...] - MET STG Goal 3 Status:: Met Impregnator Operator Goals Time Frame for moth exterminator goals : 12 FCI goal 1: Pt to increase R knee flexion MMT to 4+/5 to help with amb and stairs. moth exterminator goal 2: Pt to increase tandem stance balance to 10 s 2:3 trials for improved stability and safe amb. moth exterminator goal 3: Pt to be able to amb on unlevel surface without an AD and no deviations for 150ft. Post Treatment Pain: 09/16 Time In: 1302 Time Out: 1342 Timed Code Treatment Minutes: 40 Minutes Total Treatment Time: 40 Minutes Georgia Pham, SPT /Directly Supervised by Kyara Villegas, PT Date: 02/11/2022 documented in this encounterBON [employer] Phone: 1(608) 374-594308-01-2022 History of Present illness Narrative* Otis Edward, DIRECTOR OF PHYSICAL EDUCATION - 02/07/2022 10:30 AM EDT Images from the original note were not included. [facility] Outpatient Physical Therapy Daily Note Date: [...] - MET STG Goal 3 Status:: Met Impregnator Operator Goals Time Frame for FCI goals : 12 FCI goal 1: Pt to increase R knee flexion MMT to 4+/5 to help with amb and stairs. moth exterminator goal 2: Pt to increase tandem stance balance to 10 s 2:3 trials for improved stability and safe amb. FCI goal 3: Pt to be able to amb on unlevel surface without an AD and no deviations for 150ft. Post Treatment Pain: 09/16 Time In: 1033 Time Out : 1115 Timed Code Treatment Minutes: 42 Minutes Total Treatment Time: 42 Minutes Otis Edward, DIRECTOR OF PHYSICAL EDUCATION Date: 02/07/2022 documented in this encounterBON [employer] [facility] Phone: 1(348) 937-301107-25-2022 History of Present illness Narrative* Candida Salomon - 01/31/2022 1:00 PM EDT Images from the original note were not included. Physical Therapy [facility] Outpatient Physical Therapy Daily Note Date: [...] 3: Pt to become independent with HEP. 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 FCI goal 2: Pt to increase tandem stance balance to 10 s 2:3 trials for improved stability and safe amb. FCI goal 3: Pt to be able to amb on unlevel surface without an AD and no deviations for 150ft. Post Treatment Pain: 09/16 Time In:1255 Time Out : 1340 Timed Code Treatment Minutes: 45 Minutes Minutes Candida Salomon ,TAYLOR Date: 01/31/2022 documented in this encounterBON [employer] Phone: [phone] Evaluation + Plan noteExtracted from: Title:Op Note skeleton Author:Joan Warner DO Date:01/03/22 Impression and Plan Diagnosis Pre-op dx-rt knee oa/pain Post-op dx-same Procedure-rt tka Anesthesia-gen block EBL-0 TT-see nn To Recovery Room in stable and satisfactory condition.. Extracted from: Title:Anesthesia Pre-Op GA/block Author:Wali Garg Date:01/03/22 Plan [place] Society of Anesthesiologists (ASA) physical status classification: [...] Appointments Appointment Date:01/17/2022 11:40:00 AM Scheduled Provider: [facility] Appointment Type: Nurse Visit Appointment Date:01/18/2022 11:00:00 AM Scheduled Provider:Audelia VEGA CNP Location:[facility] Appointment Type:Cardiology Follow Up (FT) Future Scheduled Tests Laboratory* BUN 01/04/22 * Creatinine 01/04/22 * Electrolyte Panel 01/04/22 * CBC w/ Auto Diff 01/04/22 Radiology* CV Cardiovascular 12/13/21 [facility]06-10-2022 Hospital Discharge instructions Follow Up Care 12/17/2021 10:52:35 With:Sharmin HALL, Marlon Negrete Address: [address] [place], [place] [address] [address]- When:6 months [facility]06-10-2022 Hospital Discharge instructions Patient Education 12/17/2021 10:52:21 CV - Cardiovascular Discharge Instructions (CUSTOM) [place], [place] CARDIOVASCULAR DISCHARGE INSTRUCTIONS Diet: Resume pre-procedure [...] you are interested in smoking cessation, contact [facility] at [phone], ext. [phone]. In the event you are unable to reach your physician, please call Trini at [phone] and the cold work operator will assist you. Seek Immediate Medical Care for: Bleeding: Apply continuous pressure to the site and Call 911. Should the arm or leg become cold, numb, blue or white call your physician immediately. Signs of infection are redness, warmth, swelling, increased tenderness, colored drainage, fever or chills Chest pain Follow Up Care 12/13/2021 12:37:10 With:Marlon Finney Address: [address] [place], [place] [address] [address] Business (1) When:01/18/2022 11:00:00 Comments:Keep scheduled appointment [facility]06-06-2022 Hospital Discharge instructions Patient Education 12/13/2021 [...] including vitamins, herbs, eye drops, creams, and zsqu-rzz-twopyby medicines. Any problems you or family members [...] 12/31/2003 Document Revised: 06/08/2018 Document Reviewed: 04/07/2017 [employer] Patient Education 2020 Rehab Management Services. Follow Up Care 11/24/2021 09:56:15 With:Sharmin HALL, Marlon Negrete Address: [address] [place], [place] [address] [address]- When: Unknown [facility]06-02-2022 Evaluation + Plan note Future Appointments Appointment Date:12/17/2021 10:00:00 AM Scheduled Provider: Location:[facility] Appointment Type:CV Heart Cath (FT) Appointment Date:12/27/2021 02:00:00 PM Scheduled Provider: Location:[facility] [place] Appointment Type: Nurse Visit Appointment Date:01/03/2022 10:00:00 AM Scheduled Provider: Location:[facility] Appointment Type:Surgery [facility] Scheduled Tests Radiology* CV Cardiovascular 12/13/21 * CV Cardiovascular 12/17/21 [facility]04-18-2022 Hospital Discharge instructions Patient Education 10/25/2021 [...] check for related conditions, such as: ?Asthma. ?[place] eye. ?Ear infection. ?Upper respiratory infection. Tests [...] before sitting on furniture or bedding. Take amfn-ggv-kgoyvlt and prescription medicines only as told by [...] 03/21/2002 Document Revised: 06/08/2018 Document Reviewed: 08/03/2017 [employer] Patient Education 2019 Rehab Management Services. Follow Up Care 10/25/2021 10:35:28 With:RITU HALL FAAFP, LALA Rob Address: When: Unknown Comments:return as otherwise scheduled [facility] [place] 06-02-2020 Evaluation + Plan note Future Appointments Appointment Date:12/03/2021 03:00:00 PM Scheduled Provider: Location:FT.CARDIO Appointment Type:CV Echo () Appointment Date:12/09/2021 08:00:00 AM Scheduled Provider: Location:FT.[facility] Appointment Type:NM Myocard Spect Multi Rest/Stress-Res Appointment Date:12/09/2021 09:00:00 AM Scheduled Provider: Location:FT[facility] Appointment Type:NM Myocard Spect Multi Rest/Stress - R Appointment Date:12/09/2021 09:30:00 AM Scheduled [facility] Type:NM Myocard Spect Multi Rest/Stress-Str Appointment Date:12/09/2021 10:30:00 AM Scheduled Provider: [facility] App[facility] Type:NM Myocar Spect Multi Rest/Stress - St Appointment Date:12/13/2021 09:30:00 AM Scheduled Provider:Audelia VEGA CNP [facility] Type:Cardiology Follow Up (FT) Appointment Date:12/13/2021 02:00:00 PM Scheduled Provider: Location:[facility] [place] Appointment Type:FM Nurse Visit Appointment Date:01/03/2022 10:00:00 AM Scheduled Provider: Location:[facility] Appointment Type:Surgery FT Future Scheduled Tests Radiology* NM Myocardial Spect Rest/Stress 1 Day 12/09/21 * Echo Tran[facility]horacic [facility] note Future Appointments Appointment Date:10/18/2021 09:40:00 AM Scheduled Provider: Location:[facility] [place] [facility]ment [facility]: [facility] + Plan note Future Appointments Appointment Date:11/01/2021 09:40:00 AM Scheduled Provider: Location:[facility] [place] App[facility]ment Type:FM [facility] + Plan note Future Appointments Appointment Date:11/01/2021 09:40:00 AM Scheduled Provider: Location:[facility] [place] Appointment Type:FM Nurse Visit Appointment Date:11/10/2021 08:30:00 AM Scheduled Provider: Location:[facility] Surgical Services Appointment Type:Surgical PAT FT Appointment Date:11/29/2021 10:50:00 AM Scheduled Provider: Location:[facility] Appointment Type:Surgery FT [facility] [place] evaluation + Plan note Future Appointments Appointment Date:11/10/2021 08:30:00 AM Scheduled Provider: Location:[facility] Services Appointment Type:Surgical PAT FT Appointment Date:11/15/2021 09:40:00 AM Scheduled Provider: Location:[facility] [place] Appointment Type:FM Nurse Visit Appointment Date:11/26/2021 09:40:00 AM Scheduled Provider: Location:[facility] [place] Appointment Type:FM Nurse Visit Appointment Date:11/29/2021 10:50:00 AM Scheduled Provider: Location:[facility] Surgical Services Appointment Type:Surgery [facility] Evaluation + Plan note Future Appointments Appointment Date:11/15/2021 09:40:00 AM Scheduled Provider: Location:[facility] [place] Appointment Type:FM Nurse Visit Appointment Date:11/26/2021 09:40:00 AM Scheduled Provider: Location:[facility] [place] Appointment Type:FM Nurse Visit Appointment Date:11/29/2021 10:00:00 AM Scheduled Provider: Location:[facility] Future Appointments Appointment Date:11/26/2021 09:40:00 AM Scheduled [facility] Type:FM Nurse Visit Appointment Date:11/29/2021 10:00:00 AM Scheduled Provider: Location:[facility] Services Appointment Type:Surgery [facility] Evaluation + Plan note Future Appointments Appointment Date:11/26/2021 09:40:00 AM Scheduled Provider: Location:[facility] [place] Appointment Type:FM Nurse Visit Appointment Date:11/29/2021 10:00:00 AM Scheduled Provider: Location:[facility] Surgical Services Appointment Type:Surgery FT Future Scheduled Tests Radiology* NM Myocardial Spect Rest/Stress 1 Day 11/19/21 * Echo Transthoracic [facility] App[facility]ments Appointment Date:12/13/2021 09:30:00 AM Scheduled Provider:Audelia VEGA CNP [facility]:Cardiology Follow Up (FT) Appointment Date:12/13/2021 02:00:00 PM Scheduled Provider: Location:[facility] Appointment Type:FM Nurse Visit Appointment Date:01/03/2022 10:00:00 AM Scheduled Provider: Location:[facility] Future App[facility]ments Appointment Date:12/27/2021 02:00:00 PM Scheduled Provider: Location:[facility] Appointment Type:FM Nurse Visit Appointment Date:01/03/2022 10:00:00 AM Scheduled Provider: Location:[facility] Appointment Type:Surgery FT Appointment Date:01/18/2022 11:00:00 AM Scheduled Provider:Audelia VEGA CNP [facility] Type:Cardiology Follow Up (FT) Future Scheduled Tests Radiology* CV [facility] App[facility]ments Appointment Date:01/03/2022 10:00:00 AM Scheduled Provider: Location:[facility] Appointment Type:Surgery FT Appointment Date:01/17/2022 11:40:00 AM Scheduled Provider: Location:[facility] Appointment Type:FM Nurse Visit Appointment Date:01/18/2022 11:00:00 AM Scheduled Provider:Audelia VEGA CNP [facility] Type:Cardiology Follow Up (FT) Future Scheduled Tests Radiology* CV Cardiovascular 12/13/21 [facility] [place] Evaluation + Plan note Future Appointments Appointment Date:01/31/2022 11:40:00 AM Scheduled Provider: Location:[facility] Appointment Type:FM Nurse Visit Appointment Date:07/21/2022 01:15:00 PM Scheduled Provider:Marlon Finney MD [facility] Type:Cardiology Follow Up (FT) Future Scheduled Tests Laboratory* BUN 01/04/22 * Creatinine 01/04/22 * Electrolyte Panel 01/04/22 * CBC w/ Auto Diff 01/04/22 Radiology* CV Cardi[facility] App[facility]ments Appointment Date:02/28/2022 10:20:00 AM Scheduled Provider: Location:[facility] Appointment Type:FM Nurse Visit Appointment Date:07/21/2022 01:15:00 PM Scheduled Provider:Marlon Finney MD [facility] Type:Cardiology Follow Up (FT) Future Scheduled Tests Laboratory* BUN 01/04/22 * Creatinine 01/04/22 * Electrolyte Panel 01/04/22 * CBC w/ Auto Diff 01/04/22 Radiology* CV Cardiovascular 12/13/21 [facility] Clipboardaluation + Plan note Future Appointments Appointment Date:03/15/2022 10:00:00 AM Scheduled Provider: [facility] Appointment Type: Nurse Visit Appointment Date:07/21/2022 01:15:00 PM Scheduled Provider:Marlon Finney MD [facility] Type:Cardiology Follow Up (FT) Future Scheduled Tests Laboratory* BUN 01/04/22 * Creatinine 01/04/22 * Electrolyte Panel 01/04/22 * CBC w/ Auto Diff 01/04/22 Radiology* CV Cardiovascular 12/13/21 [facility] Clipboardaluation + Plan note Future Appointments Appointment Date:03/28/2022 10:20:00 AM Scheduled Provider: Location:[facility] Appointment Type: Nurse Visit Appointment Date:07/21/2022 01:15:00 PM Scheduled Provider:Marlon Finney MD [facility] Type:Cardiology Follow Up (FT) Future Scheduled Tests Laboratory* BUN 01/04/22 * Creatinine 01/04/22 * Electrolyte Panel 01/04/22 * CBC w/ Auto Diff 01/04/22 Radiology* CV Cardiovascular 12/13/21 [facility] evaluation + Plan note Future Appointments Appointment Date:04/11/2022 10:20:00 AM Scheduled Provider: Location:[facility] Appointment Type: Nurse Visit Appointment Date:07/21/2022 01:15:00 PM Scheduled Provider:Marlon Finney MD [facility] Type:Cardiology Follow Up (FT) Future Scheduled Tests Laboratory* BUN 01/04/22 * Creatinine 01/04/22 * Electrolyte Panel 01/04/22 * CBC w/ Auto Diff 01/04/22 Radiology* CV Cardiovascular 12/13/21 [facility] evaluation + Plan note Future Appointments Appointment Date:04/25/2022 10:20:00 AM Scheduled Provider: Location:[facility] Appointment Type:FM Nurse Visit Appointment Date:07/21/2022 01:15:00 PM Scheduled Provider:Marlon Finney MD [facility] Type:Cardiology Follow Up (FT) Future Scheduled Tests Laboratory* BUN 01/04/22 * Creatinine 01/04/22 * Electrolyte Panel 01/04/22 * CBC w/ Auto Diff 01/04/22 Radiology* CV Cardiovascular 12/13/21 [facility] evaluation + Plan note Future Appointments Appointment Date:05/10/2022 08:00:00 AM Scheduled Provider: Location:[facility] Appointment Type: Medicare Wellness Subsequent Appointment Date:05/23/2022 10:00:00 AM Scheduled Provider: Location:[facility] Appointment Type: Nurse Visit Appointment Date:07/21/2022 01:15:00 PM Scheduled Provider:Marlon Finney MD [facility] Type:Cardiology Follow Up (FT) Future Scheduled Tests Laboratory* BUN 01/04/22 * Creatinine 01/04/22 * Electrolyte Panel 01/04/22 * CBC w/ Auto Diff 01/04/22 Radiology* CV Cardiovascular 12/13/21 [facility] evaluation + Plan note Future Appointments Appointment Date:05/23/2022 10:00:00 AM Scheduled Provider: Location:[facility] Appointment Type: Nurse Visit Appointment Date:07/21/2022 01:15:00 PM Scheduled Provider:Marlon Finney MD [facility] Type:Cardiology Follow Up (FT) Appointment Date:05/10/2023 08:00:00 AM Scheduled Provider: Location:[facility] Appointment Type: Medicare Wellness Subsequent Future Scheduled Tests Laboratory* BUN 01/04/22 * Creatinine 01/04/22 * Electrolyte Panel 01/04/22 * CBC w/ Auto Diff 01/04/22 Radiology* CV Cardiovascular 12/13/21 [facility] evaluation + Plan note Future Appointments Appointment Date:06/06/2022 10:40:00 AM Scheduled Provider: Location:[facility] Appointment Type:FM Nurse Visit Appointment Date:07/21/2022 01:15:00 PM Scheduled Provider:Marlon Finney MD [facility] Type:Cardiology Follow Up (FT) Appointment Date:05/10/2023 08:00:00 AM Scheduled Provider: Location:[facility] Appointment Type: Medicare Wellness Subsequent Future Scheduled Tests Laboratory* BUN 01/04/22 * Creatinine 01/04/22 * Electrolyte Panel 01/04/22 * CBC w/ Auto Diff 01/04/22 Radiology* CV Cardiovascular 12/13/21 [facility] evaluation + Plan note Future Appointments Appointment Date:06/27/2022 02:20:00 PM Scheduled Provider:Nayan Cherry MD Location:[facility] Appointment Type:[place] [id number] Appointment Date:07/05/2022 10:40:00 AM Scheduled Provider: Location:[facility] Appointment Type:FM Nurse Visit Appointment Date:05/10/2023 08:00:00 AM Scheduled Provider: Location:[facility] Appointment Type: Medicare Wellness Subsequent Future Scheduled Tests Laboratory* BUN 01/04/22 * Creatinine 01/04/22 * Electrolyte Panel 01/04/22 * CBC w/ Auto Diff 01/04/22 Radiology* CV Cardiovascular 12/13/21 [facility] Evaluation + Plan note Future Appointments Appointment Date:07/05/2022 10:40:00 AM Scheduled Provider: Location:[facility] Appointment Type:FM Nurse Visit Appointment Date:07/07/2022 01:00:00 PM Scheduled Provider: Location:[facility] Appointment Type:Surgery FT Appointment Date:05/10/2023 08:00:00 AM Scheduled Provider: Location:[facility] Appointment Type: Medicare Wellness Subsequent Future Scheduled Tests Laboratory* BUN 6/28/22 * Creatinine 01/04/22 * Electrolyte Panel 01/04/22 * CBC w/ Auto Diff 01/04/22 Radiology* CV Cardiovascular 12/13/21 [facility] [place] Evaluation + Plan note Future Appointments Appointment Date:07/18/2022 10:40:00 AM Scheduled Provider: Location:[facility] Appointment Type: Nurse Visit Appointment Date:05/10/2023 08:00:00 AM Scheduled Provider: Location:[facility] Appointment Type: Medicare Wellness Subsequent Future Scheduled Tests Laboratory* BUN 01/04/22 * Creatinine 01/04/22 * Electrolyte Panel 01/04/22 * CBC w/ Auto Diff 01/04/22 Radiology* [facility] Future Appointments Appointment Date:08/01/2022 10:20:00 AM Scheduled Provider: Location:[facility] Appointment Type: Nurse Visit Appointment Date:08/02/2022 03:30:00 PM Scheduled Provider: [facility] Type:MA Screen (FT) Appointment Date:05/10/2023 08:00:00 AM Scheduled Provider: Location:[facility] Appointment Type: Medicare Wellness Subsequent Future Scheduled Tests Laboratory* BUN 01/04/22 * Creatinine 01/04/22 * Electrolyte Panel 01/04/22 * CBC w/ Auto Diff 01/04/22 Radiology* CV Cardiovascular 12/13/21 * MA Mamm Screen w/CAD if perf and 3D [place] 08/02/22 [facility] evaluation + Plan note Future Appointments Appointment Date:08/05/2022 10:15:00 AM Scheduled Provider: [facility] App[facility] Type:MA Screen (FT) Appointment Date:08/15/2022 10:20:00 AM Scheduled Provider: Location:[facility] Appointment Type: Nurse Visit Appointment Date:05/10/2023 08:00:00 AM Scheduled Provider: Location:[facility] Appointment Type: Medicare Wellness Subsequent Future Scheduled Tests Laboratory* BUN 01/04/22 * Creatinine 01/04/22 * Electrolyte Panel 01/04/22 * CBC w/ Auto Diff 01/04/22 Radiology* CV Cardiovascular 12/13/21 * MA Mamm Screen w/CAD if perf and 3D [place] 08/05/22 [facility] Clipboardaluation + Plan note Future Appointments Appointment Date:08/15/2022 10:20:00 AM Scheduled Provider: Location:[facility] Appointment Type: Nurse Visit Appointment Date:05/10/2023 08:00:00 AM Scheduled Provider: Location:[facility] Appointment Type: Medicare Wellness Subsequent Future Scheduled Tests Laboratory* BUN 01/04/22 * Creatinine 01/04/22 * Electrolyte Panel 01/04/22 * CBC w/ Auto Diff 01/04/22 Radiology* CV Cardi[facility] App[facility]ments Appointment Date:08/29/2022 10:20:00 AM Scheduled Provider: Location:[facility] Appointment Type: Nurse Visit Appointment Date:05/10/2023 08:00:00 AM Scheduled Provider: Location:[facility] Appointment Type: Medicare Wellness Subsequent Future Scheduled Tests Laboratory* BUN 01/04/22 * Creatinine 01/04/22 * Electrolyte Panel 01/04/22 * CBC w/ Auto Diff 01/04/22 Radiology* CV Cardiovascular 12/13/21 [facility] evaluation + Plan note Future Appointments Appointment Date:09/12/2022 10:20:00 AM Scheduled Provider: Location:[facility] Appointment Type: Nurse Visit Appointment Date:05/10/2023 08:00:00 AM Scheduled Provider: Location:[facility] Appointment Type: Medicare Wellness Subsequent Future Scheduled Tests Laboratory* BUN 01/04/22 * Creatinine 01/04/22 * Electrolyte Panel 01/04/22 * CBC w/ Auto Diff 01/04/22 Radiology* CV Cardiovascular 12/13/21 [facility] evaluation + Plan note Future Appointments Appointment Date:09/26/2022 10:40:00 AM Scheduled Provider: Location:[facility] Appointment Type: Nurse Visit Appointment Date:05/10/2023 08:00:00 AM Scheduled Provider: Location:[facility] Appointment Type: Medicare Wellness Subsequent Future Scheduled Tests Laboratory* BUN 01/04/22 * Creatinine 01/04/22 * Electrolyte Panel 01/04/22 * CBC w/ Auto Diff 01/04/22 Radiology* CV Cardiovascular 12/13/21 [facility] Evaluation + Plan note Future Appointments Appointment Date:10/10/2022 10:40:00 AM Scheduled Provider: Location:[facility] Appointment Type: Nurse Visit Appointment Date:05/10/2023 08:00:00 AM Scheduled Provider: Location:[facility] Appointment Type:FM Medicare Wellness Subsequent Future Scheduled Tests Laboratory* BUN 01/04/22 * Creatinine 01/04/22 * Electrolyte Panel 01/04/22 * CBC w/ Auto Diff 01/04/22 Radiology* CV Cardiovascular 12/13/21 [facility] Clipboardaluation + Plan note Future Appointments Appointment Date:10/24/2022 10:40:00 AM Scheduled Provider: Location:[facility] Appointment Type: Nurse Visit Appointment Date:05/10/2023 08:00:00 AM Scheduled Provider: Location:[facility] Appointment Type: Medicare Wellness Subsequent Future Scheduled Tests Laboratory* BUN 01/04/22 * Creatinine 01/04/22 * Electrolyte Panel 01/04/22 * CBC w/ Auto Diff 01/04/22 Radiology* CV Cardiovascular 12/13/21 [facility] Evaluation + Plan note Future Appointments Appointment Date:11/07/2022 10:40:00 AM Scheduled Provider: Location:[facility] Appointment Type:FM Nurse Visit Appointment Date:05/10/2023 08:00:00 AM Scheduled Provider: Location:[facility] Appointment Type: Medicare Wellness Subsequent Future Scheduled Tests Laboratory* BUN 01/04/22 * Creatinine 01/04/22 * Electrolyte Panel 01/04/22 * CBC w/ Auto Diff 01/04/22 Radiology* CV Cardiovascular 12/13/21 [facility] [place] evaluation + Plan note Future Appointments Appointment Date:11/21/2022 10:40:00 AM Scheduled Provider: Location:[facility] Appointment Type:FM Nurse Visit Appointment Date:05/10/2023 08:00:00 AM Scheduled Provider: Location:[facility] Appointment Type: Medicare Wellness Subsequent Future Scheduled Tests Laboratory* BUN 01/04/22 * Creatinine 01/04/22 * Electrolyte Panel 01/04/22 * CBC w/ Auto Diff 01/04/22 Radiology* CV Cardiovascular 12/13/21 [facility] [place] evaluation + Plan note Future Appointments Appointment Date:12/20/2022 10:40:00 AM Scheduled Provider: Location:[facility] Appointment Type: Nurse Visit Appointment Date:05/10/2023 08:00:00 AM Scheduled Provider: Location:[facility] Appointment Type: Medicare Wellness Subsequent Future Scheduled Tests Laboratory* BUN 01/04/22 * Creatinine 01/04/22 * Electrolyte Panel 01/04/22 * CBC w/ Auto Diff 01/04/22 Radiology* CV Cardiovascular 12/13/21 [facility] evalulokeh + Plan note Future Appointments Appointment Date:01/16/2023 10:40:00 AM Scheduled Provider: Location:[facility] Appointment Type: Nurse Visit Appointment Date:05/10/2023 08:00:00 AM Scheduled Provider: Location:[facility] Appointment Type: Medicare Wellness Subsequent Future Scheduled Tests Laboratory* BUN 01/04/22 * Creatinine 01/04/22 * Electrolyte Panel 01/04/22 * CBC w/ Auto Diff 01/04/22 [facility] [place] evaluation + Plan note Future Appointments Appointment Date:01/16/2023 10:40:00 AM Scheduled Provider: Location:[facility] Appointment Type: Nurse Visit Appointment Date:05/10/2023 08:00:00 AM Scheduled Provider: Location:[facility] Appointment Type:FM Medicare Wellness [facility] App[facility]ments Appointment Date:01/30/2023 10:40:00 AM Scheduled Provider: Location:[facility] Appointment Type:FM Nurse Visit Appointment Date:05/10/2023 08:00:00 AM Scheduled Provider: Location:[facility] Appointment Type:FM Medicare Wellness Subsequent [facility] [place] Evaluation + Plan note Future Appointments Appointment Date:03/14/2023 10:40:00 AM Scheduled Provider: Location:[facility] Appointment Type:FM Nurse Visit Appointment Date:05/10/2023 08:00:00 AM Scheduled Provider: Location:[facility] Appointment Type:FM Medicare Wellness Subsequent [facility] [place] Evaluation + Plan note Future Appointments Appointment Date:03/27/2023 10:40:00 AM Scheduled Provider: Location:[facility] Appointment Type:FM Nurse Visit Appointment Date:05/10/2023 08:00:00 AM Scheduled Provider: Location:[facility] Appointment Type:FM Medicare Wellness Subsequent [facility] [place] Evaluation + Plan note Future Appointments Appointment Date:04/10/2023 10:40:00 AM Scheduled Provider: Location:[facility] Appointment Type:FM Nurse Visit Appointment Date:05/10/2023 08:00:00 AM Scheduled Provider: Location:[facility] Appointment Type:FM Medicare Wellness Subsequent [facility] [place] Evaluation + Plan note Future Appointments Appointment Date:05/08/2023 10:40:00 AM Scheduled Provider: Location:[facility] Appointment Type:FM Nurse Visit Appointment Date:05/10/2023 08:00:00 AM Scheduled Provider: Location:[facility] Appointment Type:FM Medicare Wellness Subsequent [facility] [place] Evaluation + Plan note Future Appointments Appointment Date:05/10/2023 08:00:00 AM Scheduled Provider: Location:[facility] Appointment Type:FM Medicare Wellness Subsequent Appointment Date:05/15/2023 10:40:00 AM Scheduled Provider: Location:[facility] Appointment Type:FM Nurse Visit [facility] [place] Evaluation + Plan note Future Appointments Appointment Date:05/15/2023 10:40:00 AM Scheduled Provider: Location:[facility] Appointment Type:FM Nurse Visit Appointment Date:05/13/2024 09:30:00 AM Scheduled Provider: Location:[facility] [place] Appointment Type:FM Medicare Wellness Subsequent [facility] [place] Evaluation + Plan note Future Appointments Appointment Date:05/22/2023 10:40:00 AM Scheduled Provider: Location:[facility] Appointment Type:FM Nurse Visit Appointment Date:05/29/2023 10:40:00 AM Scheduled Provider: Location:[facility] Appointment Type:FM Nurse Visit Appointment Date:06/05/2023 10:40:00 AM Scheduled Provider: Location:[facility] [place] Appointment Type:FM Nurse Visit Appointment Date:06/12/2023 10:40:00 AM Scheduled Provider: Location:[facility] Appointment Type:FM Nurse Visit Appointment Date:05/13/2024 09:30:00 AM Scheduled Provider: Location:[facility] Appointment Type:FM Medicare Wellness Subsequent [facility] [place] Evaluation + Plan note Future Appointments Appointment Date:05/29/2023 10:40:00 AM Scheduled Provider: Location:[facility] [place] Appointment Type:FM Nurse Visit Appointment Date:06/05/2023 10:40:00 AM Scheduled Provider: Location:[facility] Appointment Type:FM Nurse Visit Appointment Date:06/12/2023 10:40:00 AM Scheduled Provider: Location:[facility] Appointment Type:FM Nurse Visit Appointment Date:05/13/2024 09:30:00 AM Scheduled Provider: Location:[facility] [place] Appointment Type:FM Medicare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
[2024-04-08 16:24] VITALS: BP 140/68; PULSE 71; O2SAT 95; BMI 82.5
== END 2024-04-08 16:25 | disposition home or self-care (01) ==
LOC: VC 14:01
PROVIDERS: PCP Radiology Diagnostic Radiology; Visit Provider Radiology Diagnostic Radiology
DX: I83.813 Varicose veins of bilateral lower extremities with pain (principal)
CPT/HCPCS: 36466

== ENCOUNTER 2024-04-15 12:55 | Outpatient (OUT) | payer MEDICARE, OTHER, SELFPAY ==
--- NOTE | 2024-04-15 09:14 | VEINCLINIC_ITS ---
Vital Signs 04/15/24 09:15 Height 5 ft 4 in Weight 98 kg BMI 37.1 Varicose Veins Patient in today for follow up ultrasound of left lower extremity following treatment of Varithena/microfoam completed on 04/08/24. Chase Mabry MD personally performed the services described in this documentation, as scribed by Valeria Hutton RDMS in my presence and it is both accurate and complete. Valeria Mabry RDMS, am scribing for, and in the presence of, Dr. Chase Hurley and in the presence of the patient. medial thigh: bilateral, knee: bilateral, calf: bilateral, ankle: bilateral and wahl: bilateral cramping, sharp and intermittent 5 20 years Worsened in recent months: Yes standing and sitting analgesics (ibuprofen and tylenol), bed rest, elevating extremities, compression stockings and exercise Reports leg edema and other (bulging veins, discolored veins, and dilated veins) History of lower extremity trauma: No Superficial thrombophlebitis: No Family history of varicose veins: yes Has patient had previous lower extremity venous surgery: No Patient has previously received the following treatment(s) for lower extremity varicose veins: Reports none Does patient have a history of : yes Does patient intend to have future pregnancies: no Has patient had lower extremity venous scan with relux testing: Yes Support hose used: Yes Problems walking or doing physical activity: Yes How does it affect you: Affects patients sleep and is not sleeping well Do you walk much: Yes Do you stand much: Yes Medication compliance: good Review of Systems ROS Narrative Chase Mabry MD personally performed the services described in this documentation, as scribed by Valeria Hutton RDMS in my presence and it is both accurate and complete. Valeria Mabry RDMS, am scribing for, and in the presence of, Dr. Chase Hurley and in the presence of the patient. Status of ROS 10 or more systems reviewed and unremark able except as noted in history and below Cardiovascular Reports: edema, swelling of feet/ankles and leg pain with exertion Musculoskeletal Reports: extremity pain, extremity swelling, limited range of motion, joint swelling, muscle cramps and muscle weakness Integumentary/Breast Reports: skin pain, skin tenderness, skin swelling and changes in skin color Neurological Reports: numbness in extremities and weakness in extremities [facility] Medical History (Updated 03/15/24 @ 13:11 by Ramon Atkinson) Phlebitis and thrombophlebitis of superficial vessels of left lower extremity ?I80.02 - Phlebitis and thrombophlebitis of superficial vessels of left lower extremity (ICD-10) Pain due to varicose veins of both lower extremities ?I83.813 - Varicose veins of bilateral lower extremities with pain (ICD-10) Obesity ?E66.9 - Obesity, unspecified (ICD-10) Surgical History (Updated 04/08/24 @ 16:28 by Ramon Atkinson) S/P sclerotherapy of varicose veins ?Z98.890 - Other specified postprocedural states (ICD-10) ?Z86.79 - Personal history of other diseases of the circulatory system (ICD- 10) Status post laser ablation of incompetent vein ?Z98.890 - Other specified postprocedural states (ICD-10) History of bunionectomy ?Z98.890 - Other specified postprocedural states (ICD-10) History of breast biopsy ?Z98.890 - Other specified postprocedural states (ICD-10) History of knee replacement procedure of right knee ?Z96.651 - Presence of right artificial knee joint (ICD-10) Family History (Updated 01/10/24 @ 09:52 by Noemí Castillo) Father Family history of CHF (congestive heart failure) Family history of diabetes mellitus Mother Varicose veins of bilateral lower extremities with pain Social History (Updated 01/10/24 @ 09:52 by Nomeí Castillo) Within the past year, how often did you have a drink containing alcohol: 2-4 times a month Smoking status: Never smoker Non-prescribed substance use: denies use Meds Home Medications and Allergies Home Medications ?Medication ?Instructions ?Recorded ?Confirmed ?Type albuterol sulfate 2.5 mg/3 mL 1.25 mg inhalation TID 01/10/24 01/10/24 History (0.083 %) solution for nebulization cetirizine 10 mg tablet (24Hour 5 mg PO DAILY PRN allergy symptoms 01/10/24 01/10/24 History Allergy) clindamycin HCl 300 mg capsule 300 mg PO BID 01/10/24 01/10/24 History (Cleocin HCl) cyanocobalamin (vitamin B-12) 100 100 mcg PO DAILY 01/10/24 01/10/24 History mcg tablet (Vitamin B-12) escitalopram oxalate 20 mg tablet 20 mg PO DAILY 01/10/24 01/10/24 History (Lexapro) hydroxyzine pamoate 25 mg capsule 25 mg PO BID 01/10/24 01/10/24 History (Vistaril) montelukast 10 mg tablet 10 mg PO DAILY 01/10/24 01/10/24 History Allergies Allergy/AdvReac Type Severity Reaction Status Date / Time amoxicillin Allergy Mild Rash Unverified 01/10/24 10:00 naproxen Allergy Unknown Unverified 01/10/24 10:00 codeine AdvReac Mild Nausea Unverified 02/15/24 15:47 Exam Narrative Exam Narrative: Chase Mabry MD personally performed the services described in this documentation, as scribed by Valeria Hutton RDMS in my presence and it is both accurate and complete. IValeria RDMS, am scribing for, and in the presence of, Dr. Chase Hurley and in the presence of the patient. 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 Chase Mabry MD personally performed the services described in this documentation, as scribed by Valeria Hutton RDMS in my presence and it is both accurate and complete. Valeria Mabry RDMS, am scribing for, and in the presence of, Dr. Chase Hurley and in the presence of the patient. Assessment and Plan Assessment and Plan (1) Phlebitis and thrombophlebitis of superficial vessels of left lower extremity: Plan Patient is waiting to proceed with treatement of right SSV until tumor in right calf is evaluated. Patient will call when ready to proceed. Chase Mabry MD personally performed the services described in this documentation, as scribed by Valeria Hutton RDMS in my presence and it is both accurate and complete. I, Valeria Hutton RDMS, am scribing for, and in the presence of, Dr. Chase Hurley and in the presence of the patient.
[2024-04-15 09:15] VITALS: BMI 37.1
--- NOTE | 2024-04-15 13:10 | VEIN_ITS ---
Patient Name: JOSIAH ALONZO MR#: [id number] : 1955 Exam Date: 04/15/2024 Ordering Doctor: DR ABBY RODRIGUEZ M.D. RADIOLOGY REPORT PROCEDURE: FACILITY EST [facility] - OFFICE VISIT FOLLOW UP COMPARISON: [facility] EST LMTD, 03/22/2024. [facility] EST LMTD, 02/28/2024. PROGRESS NOTES: The patient reports no significant problems following micro foam chemical ablation of incompetent left leg varicose veins. The patient did wear her compression stocking and tried exercise within the limits of a capacity. The patient would like to defer treatments of the right leg into she is seen for possible tumor in the right calf and for surgery of her the right 3rd toe. Physical exam demonstrates no erythema or warmth to suggest cellulitis or thrombophlebitis. No active ulceration. Scattered thrombosed varicose veins can be palpated. Single varicose vein over the left knee and lateral lower leg is observed. Mild scattered reticular and spider veins. The patient did not want treatment of these reticular spider veins at this time Review of the ultrasound performed the same day demonstrates occlusive thrombus extending throughout the treated left leg varicose veins with no deep vein thrombus. A single residual 3.1 mm varicose vein was observed. At this time the patient's treatments are paused. She will call our office if she would like to continue treatment of her right leg after seeing other providers. VEIN/[facility] EST LMTD IMPRESSION: 1. Successful ablation of the treated left leg incompetent varicose veins 2. Persistent incompetent right small saphenous vein and varicose veins. PLAN: The patient is pausing treatments at this time until she is seen for a possible tumor of her right leg. Nurse notes, history and physical were reviewed and confirmed, see attached forms. The nurse was present throughout the physical exam and consultation Dictated by: Chase Hurley MD on 04/15/2024 at 13:38 Approved by: Chase Hurley MD on 04/15/2024 at 13:44
--- NOTE | 2024-04-15 13:10 | VEIN_ITS ---
Patient Name: JOSIAH ALONZO MR#: [id number] : 1955 Exam Date: 04/15/2024 Ordering Doctor: DR ABBY RODRIGUEZ M.D. RADIOLOGY REPORT PROCEDURE: VC EXT VENOUS LT LIMITED COMPARISON: VC EXT VENOUS LT LIMITED, 02/28/2024. INDICATIONS: I80.02 - Phlebitis and thrombophlebitis of superficial veins left leg TECHNIQUE: Lower extremity holcomb scale and Duplex Doppler evaluation of the deep venous system from the inguinal ligament through the calf veins. FINDINGS: REGION: Left lower extremity. THROMBI: Negative for DVT. Chemically induced thrombus in multiple varicose veins. COMPRESSIBILITY: Non-compressible segments corresponding to thrombus FLOW: Areas of no flow corresponding to thrombus OTHER: Small patent varicose veins remain. Largest measures 3.1 mm. CONCLUSION: Post ablation occlusion of treated left leg varicose veins. No deep vein thrombus Dictated by: Chase Hurley MD on 04/15/2024 at 13:33 Approved by: Chase Hurley MD on 04/15/2024 at 13:33
--- OUTSIDE RECORDS SUMMARY | 2024-04-15 13:24 | XMS_ITS | CCD ---
Author Organization [facility] Care Team Providers Care Cvor Nurse Name Role Phone Esperanza Chaney Primary Care [...] Unavailable WARNERJOAN Referring Unavailab le BROWN, ESPERANZA Carmicahel Primary Care Unavailable WARNERJOAN Referring Unavailab le [...] Care Provider Guerita Knapp Primary Care Physician [phone] Brady Colindres Attending Unavailable Brady Colindres Referring Unavailable Dolce, Brady D Admitting Unavailable [...] D Attending Unavailable BROWNEsperanza Attending Unavailable KnappGuerita lepe Attending Unavailable KnappGuerita lepe Attending Unavailable KnappGuerita lepe Attending Unavailable BROWNEsperanza Attending Unavailable Dolce, Brady D Admitting Unavailable Dolce, Brady D Attending Unavailable Dolce, Brady D Attending Unavailable Dolce, Brady D Admitting Unavailable KnappGuerita coates Attending Unavailable KnappGuerita coates Attending Unavailable BROWNEsperanza Attending Unavailable BROWNEsperanza Attending Unavailable BROWN, Esperanza Carmichael Attending Unavailable BROWNEsperanza Attending Unavailable KnappGuerita Attending Unavailable KnappGuerita Attending Unavailable KnappGuerita lepe Attending Unavailable KnappGuerita coates Attending Unavailable KnappGuerita lepe Attending Unavailable BROWN Christelbert Attending Unavailable BROWNEsperanza Attending Unavailable BROWNEsperanza Attending Unavailable BROWN, Esperanza Carmichael Attending Unavailable BROWN, Esperanza Carmichael Attending Unavailable KnappGuerita Attending Unavailable BROWNEsperanza Attending Unavailable BROWN, Esperanza Carmichael Attending Unavailable BROWN Christophsherley Attending Unavailable BROWNEsperanza Attending Unavailable KnappGuerita lepe Attending Unavailable KnappGuerita Attending Unavailable KnappGuerita lepe Attending Unavailable BROWNVikram Attending Unavailable KnappGuerita lepe Attending Unavailable KnappGuerita lepe Attending Unavailable BROWNEsperanza Attending Unavailable KnappGuerita lepe Attending Unavailable BROWNEsperanza Attending Unavailable KnappGuerita Attending Unavailable RobertoAngi Primary Care Physician Unavail able Dolce, Brady Sales Admitting Unavailable Dolce, Brady Sales Attending Unavailable Knapp, Guerita Marshall Attending Unavailable RobertoAngi ANilda Attending Unavailable Roberto, Angi ANilda Attending Unavailable Knapp, Guerita Marshall Attending Unavailable RobertoAngi Attending Unavailable Knapp, Guerita Marshall Attending Unavailable Knapp, Guerita Marshall Attending Unavailable Knapp, Guerita Marshall Attending Unavailable DOLCE, BRADY Sales Attending Unavailable DOLCE, BRADY Sales Attending Unavailable DOLCE, BRADY Sales Attending Unavailable HILLS, REGGIE D Referring Unavailable HILLS, REGGIE D Attending Unavailable DOLCE, BRADY Sales Attending Unavailable DOLCE, BRADY Sales Referring Unavailable DOLCE, BRADY Sales Attending Unavailable DOLCE, BRADY D Attending Unavailable DOLCE, BRADY D Referring Unavailable DOLCE, BRADY D Attending Unavailable DOLCE, BRADY D Referring Unavailable DOLCE, BRADY Sales Attending Unavailable DOLCE, BRADY Sales Attending Unavailable DOLCE, BRADY Sales Attending Unavailable DOLCE, BRADY Sales Attending Unavailable DOLCE, BRADY Sales Attending Unavailable DOLCE, BRADY Henrry Referring Unavailable WARNER, JOAN T Referring Unavailable WARNER, JOAN T Attending Unavailable DOLCE, BRADY Sales Attending Unavailable DOLCE, BRADY Sales Attending Unavailable DOLCE, BRADY D Referring Unavailable DOLCE, BRADY Sales Attending Unavailable DOLCE, BRADY Sales Attending Unavailable DOLCE, BRADY D Referring Unavailable HILLS, REGGIE D Referring Unavailable HILLS, REGGIE D Attending Unavailable DOLCE, BRADY D Attending Unavailable DOLCE, BRADY D Referring Unavailable DOLCE, BRADY Sales Attending Unavailable DOLCE, BRADY Sales Attending Unavailable Knapp Guerita MENDES Unavailable [phone] Allergies Allergy Classification Reported Allergen(s) Allergy Type Date of Onset Reaction(s) Facility NSAIDs (2 sources) Naproxen; Translations: [naproxen] Drug Allergy Nausea (finding) [facility] Opioid Agonists (2 sources) Codeine; Translations: [codeine] Drug Allergy Lightheadedness (finding), Nausea and vomiting (disorder) [facility] Penicillins (antibiotic) (2 sources) Amoxicillin; Translations: [amoxicillin] Drug Allergy [facility] Codeine; Translations: [Unknown] Drug Allergy 0 GI Intolerance, Lightheadedness (finding), Nausea and vomiting (disorder), Dizziness, Nausea And Vomiting, Unknown [facility] (20 sources) Amoxicillin; Translations: [amoxicillin] Drug Allergy 3 Cutaneous eruption (morphologic abnormality), Rash [place] [email or web address] (20 sources) Naproxen; Translations: [naproxen] Drug Allergy 3 Nausea (finding), Nausea Only [place] [email or web address] Medications Current Medications Medication Drug Class(es) Dates [...] Inhalation, q6hr Wheezing, 100 EA, Refill(s) 2, [facility] [id number], 165, cm, 07/07/22 9:42:00 EST, Height/Length Dosing, 98, kg, 07/07/22 9:42:00 EST, Weight Dosing 08/31/2022 Active Start: 08-31-2022 albuterol 0.08 3% Inh Robyn 3 mL 0.083% - 3mL dosing units, Inhalation, q6hr Wheezing, 100 EA, Refill(s) 2, [facility] [id number], 165, cm, 07/07/22 9:42:00 EST, Height/Length Dosing, 98, kg, 07/07/22 9:42:00 EST, Weight Dosing Start Date: 08/31/22 Status: Ordered Start: 03-10-2021 take 2.5 mg by inhal ation every six hours as needed for wheezing albuterol 0.083% Inh Robyn 3 mL UD 2.5 mg = 3 mL, Inhalation, q6hr, PRN for wheezing, # 100 EA, Refills(s) 2, Pharmacy: [facility] [id number], 154.1, cm, 05/08/20 8:25:00 EDT, Height/Length Dosing Start Date: 03/10/21 Status: Ordered Start: 03-10-2021 take 2 puff(s) by in halation four times daily for wheezing ProAir HFA 90 mcg/inh inhalation aerosol 2 puff(s), Inhalation, QID for wheezing, 1 EA, Refill(s) 2, [facility] 518, 154.1, cm, 05/08/20 8:25:00 EDT, Height/Length Dosing Start Date: 03/10/21 Status: Ordered Start: 03-10-2021 take 2.5 mg by inhal ation every six hours as needed for wheezing albuterol 0.083% Inh Robyn 3 mL UD 2.5 mg = 3 mL, Inhalation, q6hr, PRN for wheezing, # 100 EA, Refills(s) 2, [facility], 154.1, cm, 05/08/20 8:25:00 EDT, Height/Length Dosing Start Date: 03/10/21 Status: Ordered Albuterol (Eqv-ProAir HFA) 90 mcg/inh inhalation aerosol (20 sources) Start: 07-05-2023 End: 06-29-2024 take 2 puff(s) by inhalation four times daily Albuterol (Eqv-ProAir HFA) 90 mcg/inh inhalation aerosol 2 puff(s), Inhalation, QID Wheezing for 90 day(s), 18 gm, Refill(s) 3, [facility] [id number], 170, cm, 07/05/23 12:11:00 EST, Height/Length Dosing, 98.6, kg, 07/05/23 12:11:00 EST, Weight Dosing Start Date: 07/05/23 Stop Date: 06/29/24 Status: Ordered Start: 09-20-2022 take 2 puff(s) by in halation four times daily Albuterol (Eqv-ProAir HFA) 90 mcg/inh inhalation aerosol 2 puff(s), Inhalation, QID Wheezing, 1 EA, Refill(s) 2, [facility] [id number], 165, cm, 09/20/22 10:56:00 EDT, Height/Length Dosing, [...] day(s), # 6 tab(s), Refills(s) 0, Pharmacy: [facility] [id number], 170, cm, 07/05/23 12:11:00 EST, Height/Length Dosing, 98.6, kg, 07/05/23 12:11:00 EST, Weight Dosing Start Date: 07/05/23 Stop Date: 07/10/23 Status: Ordered Start: 09-20-2022 End: 09-25-2022 azithromycin 250 mg Tab = 1 packet(s), Oral, As Directed, as directed on package labeling, X 5 day(s), # 6 tab(s), Refills(s) 0, Pharmacy: [facility] [id number], 165, cm, 09/20/22 10:56:00 EDT, Height/Length Dosing, 98, kg, 07/07/22 9:42:00 EST, Weight Dosing Start Date: 09/20/22 Stop Date: 09/25/22 Status: Ordered budesonide 0.25 mg/ml inhalation suspension (20 sources) Corticosteroid Start: 09-20-2022 take 0.5 mg by inhalation twice daily budesonide 0.5 mg/2 mL Inh Susp 0.5 mg = 2 mL, NEB, BID, # 90 EA, Refills(s) 1, Pharmacy: [facility] [id number], 165, cm, 09/20/22 10:56:00 EDT, Height/Length Dosing, 98, kg, 07/07/22 9:42:00 EST, Weight Dosing Start Date: 09/20/22 Status: Ordered Start: 03-10-2021 take 0.5 mg by inhal ation once daily budesonide 0.5 mg/2 mL Inh Susp 0.5 mg = 2 mL, NEB, Daily, # 90 EA, Refills(s) 1, Pharmacy: [facility] [id number], 154.1, cm, 05/08/20 8:25:00 EDT, Height/Length Dosing Start Date: 03/10/21 Status: Ordered Start: 03-10-2021 take 0.5 mg by inhal ation once daily budesonide 0.5 mg/2 mL Inh Susp 0.5 mg = 2 mL, NEB, Daily, # 90 EA, Refills(s) 1, [facility], 154.1, cm, 05/08/20 8:25:00 EDT, Height/Length [...] Daily, # 90 tab(s), Refills(s) 3, Pharmacy: [facility] [id number], 170, cm, 01/02/24 10:45:00 EDT, Height/Length Dosing, 106, kg, 01/02/24 10:45:00 EDT, Weight Dosing Start Date: 01/02/24 Status: Ordered clindamycin 300 mg oral capsule (20 sources) Lincosamide Antibacterial Start: 07-14-2022 clindamycin 300 mg oral cap 2 cap, Oral, Once, take 1 hr prior to procedure, # 2 cap(s), Refills(s) 1, Pharmacy: [facility] [id number], 165, cm, 07/07/22 9:42:00 EST, Height/Length Dosing, 98, kg, 07/07/22 9:42:00 EST, Weight Dosing Start Date: 07/14/22 Status: Ordered Start: 07-14-2022 take 1 capsule by [facility] every six hours clindamycin 300 mg oral cap 300 mg = 1 cap(s), Oral, q6hr, 1 hour before procedure, # 2 cap(s), Refills(s) 1, Pharmacy: [facility] [id number], 170, cm, 07/05/23 12:11:00 EST, Height/Length Dosing, [...] (20 sources) Serotonin Reuptake Inhibitor Start: 08-15-2022 escitalopram (Lexapro) 20 MG tablet Take 20 mg by mouth. 08/15/2022 Active Start: 03-28-2022 take 1 tablet by chacha once daily escitalopram 20 mg Tab 20 mg = 1 tab(s), Oral, Daily, # 90 tab(s), Refills(s) 1, Pharmacy: [facility] [id number], 162, cm, 01/18/22 11:03:00 EDT, Height/Length Dosing, 97, kg, 01/18/22 11:03:00 EDT, Weight Dosing Start Date: 03/28/22 Status: Ordered Start: 12-31-2021 take 1 tablet by chacha once daily escitalopram 20 mg Tab 20 mg = 1 tab(s), Oral, Daily, # 90 tab(s), Refills(s) 1, Pharmacy: [facility] 320, 162, cm, 12/17/21 9:05:00 EDT, Height/Length Dosing, 96, kg, 12/17/21 9:05:00 EDT, Weight Dosing Start Date: 12/31/21 Status: Ordered Start: 09-27-2021 take 1 tablet by chacha once daily escitalopram 20 mg Tab 20 mg = 1 tab(s), Oral, Daily, # 90 tab(s), Refills(s) 1, Pharmacy: [facility], 154.1, cm, 07/30/21 [...] bedtime), # 30 tab(s), Refills(s) 0, Pharmacy: [facility], 154.1, cm, 04/13/20 12:32:00 EDT, Height/Length Dosing Start Date: 04/13/20 Status: Ordered Fish Oils (20 sources) Start: 11-14-2018 take 2 capsules by mouth twice daily Fish Oil 500 mg oral capsule 1,000 mg = 2 cap(s), Oral, BID, Refills(s) 0, Prophylaxis Start Date: 11/14/18 Status: Ordered Start: 11-14-2018 take 2 capsules by [facility] twice daily Fish Oil 500 mg oral capsule 1,000 mg = 2 cap(s), Oral, BID, # 130 cap(s), Refills(s) 0 Start Date: 11/14/18 Status: Ordered Flonase 0.05 mg/inh Keymar (13 sources) Start: 11-21-2018 take 2 spray(s) nasal route once daily Flonase 0.05 mg/inh Keymar 2 spray(s), Nasal, Daily, 16 gram, Refill(s) 0, each nostril, [facility] Start Date: 11/21/18 Status: Ordered fluticasone propionate 0.05 mg/actuat metered dose nasal spray (20 sources) Corticosteroid Start: 11-21-2018 take 2 spray(s) nasal route once daily Flonase 0.05 mg/inh Keymar 2 spray(s), Nasal, Daily, 16 gram, Refill(s) 0, each nostril, [facility] Start Date: 11/21/18 Status: Ordered gabapentin 300 mg oral capsule (20 sources) Anti-epileptic Agent Start: 03-14-2023 take 1 capsule by mouth three times daily gabapentin 300 mg Cap 300 mg = 1 cap(s), Oral, TID, # 90 cap(s), Refills(s) 3, Pharmacy: [facility] [id number], 165, cm, 11/24/22 13:54:00 EDT, Height/Length Dosing, 97, kg, 11/24/22 13:54:00 EDT, Weight Dosing Start Date: 03/14/23 Status: Ordered Start: 02-10-2023 take 1 capsule by [facility] three times daily gabapentin 300 mg Cap 300 mg = 1 cap(s), Oral, TID, # 90 cap(s), Refills(s) 0, Pharmacy: [facility] [id number], 165, , 11/24/22 13:54:00 EDT, Height/Length Dosing, 97, kg, 11/24/22 13:54:00 EDT, Weight Dosing Start Date: 02/10/23 Status: Ordered Start: 01-11-2023 take 1 capsule by [facility] three times daily gabapentin 100 mg Cap 100 mg = 1 cap(s), Oral, TID, # 90 cap(s), Refills(s) 0, Pharmacy: [facility] [id number], 165, , 11/24/22 13:54:00 EDT, Height/Length Dosing, 97, kg, 11/24/22 13:54:00 EDT, Weight Dosing Start Date: 01/11/23 Status: Ordered Handicapped Parking Placard (20 sources) Start: 03-09-2020 Handicapped Pa rking Placard Handicapped Parking Placard, 5 year duration, Print Requisition, Supply Start Date: 03/09/20 Status: Ordered hydrOXYzine hydrochloride 25 mg oral tablet (20 sources) Antihistamine Start: 09-28-2022 hydrOXYzine HC l (Atarax) 25 MG tablet Take 25 mg by mouth. 09/28/2022 Active Start: 03-28-2022 [facility] needed hydrOXYzine hydrochloride 25 mg Tab 25 mg = 1 tab(s), Oral, QID, PRN as needed for itching, # 360 tab(s), Refills(s) 1, [facility] [id number], 162, cm, 01/18/22 11:03:00 EDT, Height/Length Dosing, [...] (20 sources) Leukotriene Receptor Antagonist Start: 03-28-2022 montelukast (Singulair) 10 MG tablet Take 10 mg by mouth. 03/28/2022 Active Start: 09-27-2021 take 1 tablet by chacha th once daily in the evening Singulair 10 mg Tab 10 mg = 1 tab(s), Oral, qPM, # 90 tab(s), Refills(s) 1, Pharmacy: [facility], 154.1, cm, 07/30/21 [...] Start: 11-14-2018 take 1 tablet by chacha twice daily naproxen 500 mg Tab 500 mg = 1 tab(s), Oral, BID, # 180 tab(s), Refills(s) 0 Start Date: 11/14/18 Status: Ordered nebulizer (4 sources) Start: 03-22-2021 nebulizer nebu lizer, See Instructions, 1 EA, 0, use as directed with inhaled medication as prescribed, Supply Start Date: 03/22/21 Status: Ordered nebulizer tubing and supplies (4 sources) Start: 03-22-2021 nebulizer tubi ng and supplies nebulizer tubing and supplies, See Instructions, 1 EA, 0, use as directed with inhaled med as prescribed, Supply Start Date: 03/22/21 Status: Ordered polyethylene glycol 3350 109963 mg / potassium chloride 1480 mg / sodium bicarbonate 5720 mg / sodium chloride 31869 mg powder for oral solution (1 source) Osmotic Laxative Start: 06-27-2022 take 1 dose by mouth once NuLYTELY Echo oral powder for reconstitution See Instructions, 1 EA, Refill(s) 0, Per physcisians instructions prior to colonoscopy, [facility] [id number], 165, cm, 06/27/22 14:23:00 EST, Height/Length Dosing, 98, kg, 06/27/22 14:23:00 EST, Weight Dosing Start Date: 06/27/22 Status: Ordered predniSONE 10 mg oral tablet (20 sources) Start: 03-27-2024 take 5 tablets by mouth once daily, then take 4 tablets by mouth once daily, then take 3 tablets by mouth once daily, then take 2 tablets by mouth once daily, then take 1 tablet by mouth once daily predniSONE (Deltasone) 10 MG tablet Indications: Low back pain, unspecified back pain laterality, unspecified chronicity, unspecified whether sciatica present Take 5 tabs p.o. daily x3 days Take 4 tabs p.o. daily x3 days Take 3 tabs p.o. daily x3 days Take 2 tabs p.o. daily x3 days Take 1 tab p.o. daily x3 days 45 tablet 03/27/2024 Active Start: 07-05-2023 predniSONE 10 mg Tab = 1 -, Oral, As Directed, Take 3 tabs by mouth daily x3 days, then 2 tabs daily x3 days, then 1 tab daily x3 days., # 18 tab(s), Refills(s) 0, Pharmacy: [facility] [id number], 170, cm, 07/05/23 12:11:00 EST, Height/Length Dosing, 98.6, kg, 07/05/23 12:11:00 EST, Weight Dosing Start Date: 07/05/23 Status: Ordered Start: 08-18-2022 predniSONE 20 mg Tab See Instructions, 3 po daily x 2 days then 2 po daily x 2 days then 1po daily x 2 days, # 18 tab(s), Refills(s) 0, Pharmacy: [facility], 165, cm, 07/07/22 9:42:00 EST, Height/Length Dosing, 98, kg, 07/07/22 9:42:00 EST, Weight Dosing Start Date: 08/18/22 Status: Ordered Start: 03-28-2022 End: 04-02-2022 take 2 tablets by mouth once daily predniSONE 20 mg Tab 40 mg = 2 tab(s), Oral, Daily, X 5 day(s), # 10 tab(s), Refills(s) 0, Pharmacy: [facility], 162, cm, 01/18/22 11:03:00 EDT, Height/Length Dosing, 97, kg, 01/18/22 11:03:00 EDT, Weight Dosing Start Date: 03/28/22 Stop Date: 04/02/22 Status: Ordered Start: 12-09-2021 predniSONE 20 mg Tab See Instructions, 3 po daily x 2 days then 2 po daily x 2 days then 1po daily x 2 days, # 18 tab(s), Refills(s) 0, Pharmacy: [facility], 163, cm, 12/09/21 14:21:00 EDT, Height/Length Dosing, 95, kg, 11/19/21 15:23:00 EDT, Weight Dosing Start Date: 12/09/21 Status: Ordered Start: 07-12-2021 predniSONE 20 mg Tab See Instructions, 3 po daily x 3 days then 2 po daily x 3 days then 1po daily x 3 days, # 18 tab(s), Refills(s) 0, Pharmacy: [facility] 518, 154.1, cm, 05/08/20 8:25:00 EDT, Height/Length Dosing Start Date: 07/12/21 Status: Ordered ProAir HFA 90 mcg/inh inhalation aerosol (20 sources) Start: 03-10-2021 take 2 puff(s) by inhalation four times daily for wheezing ProAir HFA 90 mcg/inh inhalation aerosol 2 puff(s), Inhalation, QID for wheezing, 1 EA, Refill(s) 2, [facility], 154.1, cm, 05/08/20 8:25:00 EDT, Height/Length Dosing Start Date: 03/10/21 Status: Ordered Triamcinolone (4 sources) Corticosteroid Start: 08-31-2020 triamcinolone Top 0.1% Crm 30 gram 1 pete, Topical, BID, 30 gram, Refill(s) 1, [facility] 320, 154.1, cm, 05/08/20 8:25:00 EDT, Height/Length Dosing Start Date: 08/31/20 Status: Ordered vitamin b12 0.1 mg oral tablet (8 sources) Vitamin B12 take 1 tablet by mouth in the morning cyanocobalamin (Vitamin B-12) 100 MCG tablet Take 100 mcg by mouth in the morning. Active Vitamin C 500 mg oral tablet, [...] Documented Da te Episodic/Chronic Acquired foot deformities (2 sources) Toe joint rigid; Translations: [Hallux rigidus, right foot] 04-09-2024 Chronic Acquired foot deformities (1 source) Hallux valgus [...] (20 sources) Cobalamin deficiency 01-03-2023 Episodic Osteoarthritis (10 sources) Osteoarthritis of knee; Translations: [Unilateral primary osteoarthritis, right knee] Onset: 2 Chronic Osteoporosis (20 sources) Osteoporosis; Translations: [Primary osteoporosis] Onset: 2 07-30-2021 Chronic Other connective tissue disease (10 sources) History of right total knee replacement; [...] Name Value Interpretation Reference Range Facil ity CNPNon 04-10-2024 CNPN Telephone ([facility]) ---- ANGELA ALONZO ([id number]) 1955 F Date Time Provider Department 04/10/24 PEDRITO MONTOYA During your visit today, we recorded the following information about you: Loren Joaquin LPN 04/10/2024 9:55 AM Signed Patient to see [facility] [place] not pain management per 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 Please call and assist in scheduling. Patient aware appt with Dr Montoya will be cancelled. Mila Marroquin 04/10/2024 11:31 AM Signed LVM w/callback number for pt to schedule [facility] 04/10/24 Dahiana Marie 04/12/2024 9:03 AM Signed Pt is scheduled with [facility] ([facility]) on 05/10/24. Also added to [facility] Allergies As of Date: 04/10/2024 (Not on File) Date Reviewed: Never Reviewed Reason for Visit: Appointment [186] Problem List As Of Date: 04/10/2024 (None) Encounter Status:Closed by LOREN JOAQUIN on 04/10/24 Normal [facility] Ambulatory Visit Summaryon 0 03-25-2024 Ambulatory Visit Summary Ambulatory Visit Summary ANGELA ALONZO :1955 Visit Date:03/25/2024 Ambulatory Visit Instructions Your Diagnosis Perennial allergic rhinitis Your Care Team Attending Physician - Angi Parikh Primary Care Physician - Angi Parikh This Is Your Medications List [facility] [place]Handicapped Parking Placard) [...] mg Tab) fluticasone nasal (Flonase 0.05 mg/inh Keymar) hydrOXYzine (hydrOXYzine hydrochloride 25 mg Tab) montelukast (Singulair 10 mg Tab) omega-3 polyunsaturated fatty acids (Fish Oil 500 mg oral capsule) Procedures Performed Colonoscopy (07/07/2022), Total knee arthroplasty (01/03/2022), Cardiac catheterization, left heart (12/17/2021), left needle localized breast biopsy (08/22/2012), Breast biopsy and related procedures (01/2002), HEEL SPUR REMOVAL. What to do next Scheduled Follow-Up Appointments Monday 9:30 AM EST Where: [facility] Medicine [address] [address]- Medications What How Much When Instructions Unchanged [...] Unchanged fluticasone nasal (Flonase 0.05 mg/ inh Keymar) 2 Sprays Nasal Inhalation Every day each [...] for choosing us for your care. Normal [facility] Family Medicine Office/Clini c Noteon [...] the right knee. I was contacted by [facility] regarding the patient's MRI results, with [...] advised her to seek treatment in [place], [place]. The mass occasionally causes pain, but [...] little toe. She prefers to go to [facility] for further evaluation. Additionally, she has a [...] with voice recognition artificial intelligence software, specifically [employer], [employer]amb[employer] and or [employer]. Substitutions may have occurred due to the inherent limitations of voice recognition and artificial intelligence software. ATTESTATION: This note has been generated by CM [employer] and edited by Sae Boone, [employer] Closing Clerk/Reviewed by Jaquan OCHOA. 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 Normal [facility] Comment on above: Result Comment: Elec tronically [...] Knapp PA-C This Is Your Medications List [facility] [place]Handicapped Parking Placard) [...] mg Tab) fluticasone nasal (Flonase 0.05 mg/inh Keymar) hydrOXYzine (hydrOXYzine hydrochloride 25 mg Tab) montelukast [...] Follow-Up Appointments Monday 10:40 AM EDT Where: [facility] [address] [place] [address]- Monday 9:30 AM EST Where: [facility] [address] [place] [address]- Medications What How Much When Instructions Unchanged [...] Unchanged fluticasone nasal (Flonase 0.05 mg/ inh Keymar) 2 Sprays Nasal Inhalation Every day each [...] for choosing us for your care. Normal [facility] Ambulatory Visit Summaryon 0 02-12-2024 Ambulatory Visit Summary Ambulatory Visit Summary ANGELA ALONZO :1955 Visit Date:02/12/2024 Ambulatory Visit Instructions Your Diagnosis Allergic rhinitis, seasonal Your Care Team Attending Physician - Guerita Knapp PA-C Primary Care Physician - Guerita Knapp PA-C This Is Your Medications List [facility] [place]Handicapped Parking Placard) [...] mg Tab) fluticasone nasal (Flonase 0.05 mg/inh Keymar) hydrOXYzine (hydrOXYzine hydrochloride 25 mg Tab) montelukast (Singulair 10 mg Tab) omega-3 polyunsaturated fatty acids (Fish Oil 500 mg oral capsule) Procedures Performed Colonoscopy (07/07/2022), Total knee arthroplasty (01/03/2022), Cardiac catheterization, left heart (12/17/2021), left needle localized breast biopsy (08/22/2012), Breast biopsy and related procedures (01/2002), HEEL SPUR REMOVAL. What to do next Scheduled Follow-Up Appointments Monday 9:30 AM EST Where: [place] [address] [place] [address]- Medications What How Much When Instructions Unchanged [...] Unchanged fluticasone nasal (Flonase 0.05 mg/ inh Keymar) 2 Sprays Nasal Inhalation Every day each [...] for choosing us for your care. Normal [facility] Ambulatory Visit Summaryon 0 01-29-2024 Ambulatory Visit Summary Ambulatory Visit Summary ANGELA ALONZO :1955 Visit Date:01/29/2024 Ambulatory Visit Instructions Your Diagnosis Allergic rhinitis, seasonal Your Care Team Attending Physician - Guerita Knapp PA-C Primary Care Physician - Guerita Knapp PA-C. This Is Your Medications List [facility] [place]Handicapped Parking Placard) [...] mg Tab) fluticasone nasal (Flonase 0.05 mg/inh Keymar) hydrOXYzine (hydrOXYzine hydrochloride 25 mg Tab) montelukast (Singulair 10 mg Tab) omega-3 polyunsaturated fatty acids (Fish Oil 500 mg oral capsule) Procedures Performed Colonoscopy (07/07/2022), Total knee arthroplasty (01/03/2022), Cardiac catheterization, left heart (12/17/2021), left needle localized breast biopsy (08/22/2012), Breast biopsy and related procedures (01/2002), HEEL SPUR REMOVAL. What to do next Scheduled Follow-Up Appointments Monday 9:30 AM EST Where: [facility] Medicine Chao Normal [facility] Medicine Office/Clini c Noteon 01-07-2024 Family Medicine [...] She is scheduled for an MRI at [facility] on 01/05/2024 at 6:45 a.m. She [...] (Z01.818: E (more content not included)... Normal [facility] Comment on above: Result Comment: Elec tronically Signed By: Guerita Knapp PA-C\.br\Date and Time Signed: 01/07/24 21:36 EDT\.br\Electronically Co-Signed By: Sonia Jane\.br\Date and Time Co-Signed: 01/02/24 14:04 EDT Ambulatory Visit Summaryon 0 01-02-2024 Ambulatory Visit Summary ANGELA ALONZO Elvin :1955 Visit Date:01/02/2024 Ambulatory Visit Instructions Your [...] oral cap) fluticasone nasal (Flonase 0.05 mg/inh Keymar) omega-3 polyunsaturated fatty acids (Fish Oil 500 [...] Follow-Up Appointments Monday 10:40 AM EDT Where: [facility] Normal [address] [place] [address]- \.br\ You Need to Schedule the Following Appointments\.br\ Follow Up with Guerita Knapp PA-C When: In 6 months\.br\ Comments:\.br\ For check up\.br\ Where:\.br\ [address]\ [place] [address]-\.br\ [id number]\.br\ Medications\.br\ What How Much When Instructions\.br\ Unchanged cetirizine (cetirizine 10 mg Tab) 1 Tablets By Mouth Every day Pickup at [facility] [id number]\.br\ Unchanged escitalopram (escitalopram 20 mg Tab) 1 Tablets By Mouth Every day\.br\ Unchanged hydrOXYzine (hydrOXYzine hydrochloride 25 mg Tab) 1 Tablets By Mouth 4 times a day as needed for as needed for itching Pickup at [facility] [id number]\.br\ Unchanged montelukast (Singulair 10 mg Tab) 1 Tablets By Mouth Once a day (in the evening) Pickup at [facility] [id number]\.br\ Unchanged albuterol (Albuterol (Eqv-ProAir HFA) 90 mcg/ [...] Unchanged fluticasone nasal (Flonase 0.05 mg/ inh Keymar) 2 Sprays Nasal Inhalation Every day each nostril Contact prescribing physician if questions or concerns \.br\ Unchanged Misc Prescription (Handicapped Parking Placard) 0 5 year duration Contact prescribing physician if questions or concerns \.br\ Unchanged omega-3 polyunsaturated fatty acids (Fish Oil 500 mg oral capsule) 2 Capsules By Mouth 2 times a day Contact prescribing physician if questions or concerns \.br\ Pharmacy Information\.br\ [facility] [id number]: [address] [place], [place] [phone]\.br\ Allergies\.br\ Anaprox (Nausea)\.br\ amoxicillin (Rash)\.br\ codeine (Lightheaded, [...] and frozen vegetables.\.br\ ? \.br\ Avoid buying jndot-tg-rcs foods, such as pre-cut fruits and vegetables and pre-made salads.\.br\ ? \.br\ If possible, shop around to discover where you can find the best prices. Consider other retailers such as dollar stores, larger wholesale stores, local fruit and vegetable stands, and [employer] markets.\.br\ ? \.br\ Do not shop when [...] instead of beef.\.br\ ? \.br\ Choose canne [facility] BMPon 01-02-2024 Anion gap [Moles/Vol] 10 mmol/L Normal 6-16 [facility] Comment on above: Performed By: #### 2 [id number] #### [facility] Laboratory [address] [place] [address] Calcium [Mass/Vol] 10.2 mg/dL Normal 8.9-11.1 [facility] Comment on above: Performed By: #### 2 950292 #### [facility] [address] [place] [address] Chloride [Moles/Vol] 105 mmol/L Normal 101-111 [facility] Comment on above: Performed By: #### 2 353864 #### [facility] Laboratory [address] [place] [address] CO2 [Moles/Vol] 27 mmol/L Normal 21-31 [facility] Comment on above: Performed By: #### 2 497170 #### [facility] Laboratory [address] [place] [address] Creatinine [Mass/Vol] 0.7 mg/dL Normal 0.5-1.3 [facility] Comment on above: Performed By: #### 2 972070 #### [facility] Laboratory [address] [place] [address] Glucose [Mass/Vol] 77 mg/dL Normal 55-199 [facility] Comment on above: Performed By: #### 2 807523 #### [facility] [address] [place] [address] Potassium [Moles/Vol] 4.0 mmol/L Normal 3.5-5.3 [facility] Comment on above: Performed By: #### 2 182639 #### [facility] [address] [place] [address] Sodium [Moles/Vol] 138 mmol/L Normal 135-145 [facility] Comment on above: Performed By: #### 2 929072 #### [facility] [address] [place] [address] Urea nitrogen [Mass/Vol] 16 mg/dL Normal 5-21 [facility] Comment on above: Performed By: #### 2 907239 #### [facility] [address] [place] [address] Urea nitrogen/Creatinine [Mass ratio] 23 No Units High 10-20 [facility] Comment on above: Performed By: #### 2 877429 #### [facility] [address] [place] [address] CBC w/ Auto Diffon 4 Basophils/100 WBC (Bld) 0.8 % Normal 0.0-2.0 [facility] Comment on above: Performed By: #### 2 004706 #### [facility] [address] [place] [address] Basophils/Leukocytes Auto (Bld) [Pure # fraction] 0.1 E9/L Normal 0.0-0.2 [facility] Comment on above: Performed By: #### 2 082564 #### [facility] [address] [place] [address] Eosinophils (Bld) [#/Vol] 0.2 E9/L Normal 0.0-0.5 [facility] Comment on above: Performed By: #### 2 953219 #### [facility] [address] [place] [address] Eosinophils/100 WBC (Bld) 2.6 % Normal 0.0-8.0 [facility] Comment on above: Performed By: #### 2 506602 #### [facility] [address] [place] [address] Erythrocyte distribution width (RBC) [Ratio] 13.4 % Normal 10.9-14.2 [facility] Comment on above: Performed By: #### 2 731532 #### [facility] [address] [place] [address] Hematocrit (Bld) [Volume fraction] 42.1 % Normal 34.0-46.0 [facility] Comment on above: Performed By: #### 2 955214 #### [facility] [address] [place] [address] Hemoglobin (Bld) [Mass/Vol] 14.4 g/dL Normal 12.0-16.0 [facility] Comment on above: Performed By: #### 2 794719 #### [facility] [address] [place] [address] Lymphocytes (Bld) [#/Vol] 1.9 E9/L Normal 1.0-4.0 [facility] Comment on above: Performed By: #### 2 255780 #### [facility] [address] [place] [address] Lymphocytes/100 WBC (Bld) 30.4 % Normal 14.0-50.0 [facility] Comment on above: Performed By: #### 2 947756 #### [facility] [address] [place] [address] MCH (RBC) [Entitic mass] 31.0 pg Normal 27.0-34.0 [facility] Comment on above: Performed By: #### 2 851020 #### [facility] [address] [place] [address] MCHC (RBC) [Mass/Vol] 34.3 g/dL Normal 31.4-36.0 [facility] Comment on above: Performed By: #### 2 645457 #### [facility] [address] [place] [address] MCV (RBC) [Entitic vol] 90.4 fL Normal 80.0-100.0 [facility] Comment on above: Performed By: #### 2 835304 #### [facility] [address] [place] [address] Monocytes (Bld) [#/Vol] 0.8 E9/L Normal 0.2-1.0 [facility] Comment on above: Performed By: #### 2 425205 #### [facility] [address] [place] [address] Neutrophils (Bld) [#/Vol] 3.4 E9/L Normal 2.0-7.5 [facility] Comment on above: Performed By: #### 2 024506 #### [facility] [address] [place] [address] Neutrophils/100 WBC (Bld) 53.3 % Normal 36.0-75.0 [facility] Comment on above: Performed By: #### 2 797864 #### [facility] [address] [place] [address] Platelet 272.0 E9/L Normal 150.0-500.0 [facility] Comment on above: Performed By: #### 2 715457 #### [facility] [address] [place] [address] Platelet mean volume (Bld) [Entitic vol] 9.8 fL Normal 6.4-10.8 [facility] Comment on above: Performed By: #### 2 048331 #### [facility] [address] [place] [address] RBC (Bld) [#/Vol] 4.7 E12/L Normal 4.3-5.9 [facility] Comment on above: Performed By: #### 2 003164 #### [facility] [address] [place] [address] WBC corrected for nucl RBC Auto (Bld) [#/Vol] 6.4 E9/L Normal 4.0-11.0 [facility] Comment on above: Performed By: #### 2 678483 #### [facility] Laboratory [address] [place] [address] CHEMISTRYOrdered By: SYSTEM SYSTEM on 01-02-2024 Anion [...] fruits, and frozen vegetables. ? Avoid buying ykmyk-aa-qhz foods, such as pre-cut fruits and vegetables [...] for buyi (more content not included)... Normal [facility] Physician Orderon 01-02-2024 Physician Order [id number] 615#1.00TIFF Normal [facility] eGFRon 01-02-2024 eGFR 94 mL/min/1.73 m2 Normal >=59 [facility] Comment on above: Order Comment: Order added by Discern Expert. Performed By: #### 1 [id number] #### [facility] [address] [place] [address] Nurse Consultation Noteon Nurse Consultation Note Reason [...] 2 cap(s), Oral, BID Flonase 0.05 mg/inh Keymar, 2 spray(s), Nasal, Daily gabapentin 300 mg [...] Recorded pneumococcal 23-valent vaccine 04/07/2005 Recorded Normal [facility] Physician Orderon 12-29-2023 Physician Order [id number] 8#1.00TIFF [facility] Formson 12-18-2023 Forms [id number] E6#1.00TIFF [facility] Nurse Consultation Noteon Nurse Consultation [...] 2 cap(s), Oral, BID Flonase 0.05 mg/inh Keymar, 2 spray(s), Nasal, Daily gabapentin 300 mg [...] pneumococcal 23-valent vaccine 04/07/[address] Nurse Consultation Noteon Nurse Consultation Note Reason for Visit Allergy injection Medications Albuterol (Eqv-ProAir HFA) 90 mcg/inh inhalation aerosol, 2 puff(s), Inhalation, QID, PRN, 3 refills albuterol 0.083% Inh Roybn 3 mL, 0.083% - 3mL dosing units, [...] 2 cap(s), Oral, BID Flonase 0.05 mg/inh Keymar, 2 spray(s), Nasal, Daily gabapentin 300 mg [...] pneumococcal 23-valent vaccine 04/07/[address] Nurse Consultation Noteon Nurse Consultation Note [...] 2 cap(s), Oral, BID Flonase 0.05 mg/inh Keymar, 2 spray(s), Nasal, Daily gabapentin 300 mg [...] pneumococcal 23-valent vaccine 04/07/[address] Nurse Consultation Noteon Nurse Consultation Note [...] 2 cap(s), Oral, BID Flonase 0.05 mg/inh Keymar, 2 spray(s), Nasal, Daily gabapentin 300 mg [...] Recorded pneumococcal 23-valent vaccine 04/07/2005 Recorded Normal [facility] [place] Mamm Screen w/CAD if [...] very important to your health. The current [employer] and National Comprehensive Cancer [...] 2-Benign finding Recommendation: Normal interval follow-up Normal [facility] Consent for Treatmenton 10-08 Consent for Treatment [id number] D1#1.00TIFF Normal [facility] Nurse Consultation Noteon Nurse Consultation [...] 2 cap(s), Oral, BID Flonase 0.05 mg/inh Keymar, 2 spray(s), Nasal, Daily gabapentin 300 mg [...] Recorded pneumococcal 23-valent vaccine 04/07/2005 Recorded Normal [facility] Ambulatory Visit Summaryon 0 10-02-2023 Ambulatory Visit Summary ANGELA ALONZO :1955 Visit Date:10/02/2023 Ambulatory Visit Instructions Your Care Team Attending Physician - Guerita Knapp PA-C Primary Care Physician - Guerita Knapp PA-C This Is Your Medications List [facility] [place]Handicapped Parking Placard) [...] mg Tab) fluticasone nasal (Flonase 0.05 mg/inh Keymar) gabapentin (gabapentin 300 mg Cap) hydrOXYzine (hydrOXYzine [...] Follow-Up Appointments Monday 10:40 AM EDT Where: [facility] [place] Normal [address] [place] [address]- \.br\ Medications\.br\ What How Much When Instructions\.br\ [...] Unchanged fluticasone nasal (Flonase 0.05 mg/ inh Keymar) 2 Sprays Nasal Inhalation Every day each [...] for choosing us for your care.\.br\ \.br\ [facility] Nurse Consultation Noteon Nurse Consultation [...] 2 cap(s), Oral, BID Flonase 0.05 mg/inh Keymar, 2 spray(s), Nasal, Daily gabapentin 300 mg [...] pneumococcal 23-valent vaccine 04/07/[address] Nurse Consultation Noteon Nurse Consultation Note [...] 2 cap(s), Oral, BID Flonase 0.05 mg/inh Keymar, 2 spray(s), Nasal, Daily gabapentin 300 mg [...] pneumococcal 23-valent vaccine 04/07/[address] Ambulatory Visit Summaryon 0 09-04-2023 Ambulatory Visit Summary ANGELA ALONZO :1955 Visit Date:09/04/2023 Ambulatory Visit Instructions Your Diagnosis Allergic rhinitis, seasonal Your Care Team Attending Physician - Guerita Knapp PA-C Primary Care Physician - Guerita Knapp PA-C This Is Your Medications List [facility] [place]Handicapped Parking Placard) [...] mg Tab) fluticasone nasal (Flonase 0.05 mg/inh Keymar) gabapentin (gabapentin 300 mg Cap) hydrOXYzine (hydrOXYzine [...] Follow-Up Appointments Monday 10:40 AM EDT Where: [facility] Normal [address] [place] [id number]- \.br\ Medications\.br\ What How Much When Instructions\.br\ [...] Unchanged fluticasone nasal (Flonase 0.05 mg/ inh Keymar) 2 Sprays Nasal Inhalation Every day each [...] for choosing us for your care.\.br\ \.br\ [facility] Nurse Consultation Noteon Nurse Consultation [...] 2 cap(s), Oral, BID Flonase 0.05 mg/inh Keymar, 2 spray(s), Nasal, Daily gabapentin 300 mg [...] 09/08/2020 Recorded pneumococcal 23-valent vaccine 04/07/2005 Recorded [facility] Provider Letteron 08-23-2023 Provider Letter [address] [place] [address] [id number] August 23, 2023 ANGELA ALONZO [address] [place] [address] : [address] Colindres The above patient has been evaluated at your request on 08/14/23 for preoperative clearance. After assessment of available pertinent labs and diagnostic tests performed on 08/14/23 and 08/15/23, I feel this patient is medically optimized for surgery. Final discretion of whether the patient is cleared for surgery remains up to the surgeon/anesthesiol ogist. Thank you, ARMAND Torre, VAUGHN Menesesus: [facility] Nurse Consultation Noteon Nurse Consultation Note Reason [...] 2 cap(s), Oral, BID Flonase 0.05 mg/inh Keymar, 2 spray(s), Nasal, Daily gabapentin 300 mg [...] Recorded pneumococcal 23-valent vaccine 04/07/2005 Recorded Normal [facility] Physician Referralon 024 Physician Referral [id number] 126#1.00TIFF [facility] Consultation Noteon 08-16-19 24 Consultation Note [id number] 0F#1.00TIFF Normal [facility] Medicine Office/Clini c Noteon 08-16-2023 Family Medicine [...] sounds, n (more content not included)... Normal [facility] Comment on above: Result Comment: Elec tronically Signed By: Ra MENDES, Guerita Marshall\.br\Date and Time Signed: 08/16/23 21:29 EST\.br\Electronically Co-Signed [...] joint her left knee is arthritic with vxvn-bw-zahz changes to the medial compartment as well as patellofemoral joint. [facility] Radiology Study observation (narrative) [facility] Consent for Treatmenton Consent for Treatment [id number] 94#1.00TIFF Normal [facility] Consultation Noteon 08-15-19 Consultation Note [id number] D2#1.00TIFF Normal [facility] XR Chest 2 Viewson 4 XR Chest [...] mGy = na DAP = na Normal [facility] BMPon 08-14-2023 Calcium [Mass/Vol] 9.8 mg/dL Normal 8.9-11.1 [facility] Comment on above: Performed By: #### 1 1592670, 9546772, 3913814 ####[address] [place] [address] Chloride [Moles/Vol] 103 mmol/L Normal 101-111 [facility] Comment on above: Performed By: #### 1 6138549, 9090703, 2697207 ####[facility] [address] [place] [address] CO2 [Moles/Vol] 29 mmol/L Normal 21-31 [facility] Comment on above: Performed By: #### 1 6732473, 7734996, 7989649 ####[facility] [address] [place] [address] Creatinine [Mass/Vol] 0.8 mg/dL Normal 0.5-1.3 [facility] Comment on above: Performed By: #### 1 2785879, 0904333, 8699261 ####[facility] [address] [place] [address] Glucose [Mass/Vol] 79 mg/dL Normal 55-199 [facility] Comment on above: Performed By: #### 1 3062115, 1999331, 4140123 ####[address] [place] [address] Potassium [Moles/Vol] 4.2 mmol/L Normal 3.5-5.3 [facility] Comment on above: Performed By: #### 1 1118826, 4323721, 2362025 ####[address] [address] Sodium [Moles/Vol] 138 mmol/L Normal 135-145 [facility] Comment on above: Performed By: #### 1 2723939, 4838590, 8767955 ####[address] [address] Urea nitrogen [Mass/Vol] 17 mg/dL Normal 5-21 [facility] Comment on above: Performed By: #### 1 1745378, 2054151, 5562844 ####[address] [address] Anion gap [Moles/Vol] 10 mmol/L Normal 6-16 [facility] Comment on above: Performed By: #### 1 3592080, 1928828, 6174492 ####[address] [address] BUN/Creat Ratio 21 No Units High 10-20 [facility] Comment on above: Performed By: #### 1 8356376, 3104539, 0376316 ####[address] [address] CBC w/ Auto Diffon 4 Basophils/100 WBC (Bld) 0.9 % Normal 0.0-2.0 [facility] Comment on above: Performed By: #### 1 6907677, 8349062, 4278664 ####[address] [address] Eosinophils/100 WBC (Bld) 2.4 % Normal 0.0-8.0 [facility] Comment on above: Performed By: #### 1 3992367, 1015197, 1982011 ####[address] [address] Erythrocyte distribution width (RBC) [Ratio] 14.4 % High 10.9-14.2 [facility] Comment on above: Performed By: #### 1 2709567, 4732601, 1175469 ####[place] [address] [address] Hematocrit (Bld) [Volume fraction] 44.0 % Normal 34.0-46.0 [facility] Comment on above: Performed By: #### 1 8800603, 3385874, 1182220 ####[place] [address] [address] Hemoglobin (Bld) [Mass/Vol] 14.3 g/dL Normal 12.0-16.0 [facility] Comment on above: Performed By: #### 1 5238802, 3814940, 5992371 ####[address] [address] Lymphocytes/100 WBC (Bld) 27.6 % Normal 14.0-50.0 [facility] Comment on above: Performed By: #### 1 2701883, 4975457, 0048190 ####[address] [address] MCH (RBC) [Entitic mass] 29.5 pg Normal 27.0-34.0 [facility] Comment on above: Performed By: #### 1 6907858, 4730559, 3541967 ####[address] [address] MCHC (RBC) [Mass/Vol] 32.3 g/dL Normal 31.4-36.0 [facility] Comment on above: Performed By: #### 1 9552745, 5812881, 6235874 ####[address] [address] MCV (RBC) [Entitic vol] 91.5 fL Normal 80.0-100.0 [facility] Comment on above: Performed By: #### 1 8523194, 1497351, 5946481 ####[address] [address] Monocytes/100 WBC (Bld) 11.6 % Normal 4.0-14.0 [facility] Comment on above: Performed By: #### 1 5677569, 4879556, 4042575 ####[address] [address] NEUTRO AUTO 57.5 % Normal 36.0-75.0 [facility] Comment on above: Performed By: #### 1 9373784, 7476064, 7035855 ####[address] [address] Platelet mean volume (Bld) [Entitic vol] 9.7 fL Normal 6.4-10.8 [facility] Comment on above: Performed By: #### 1 3221233, 9362237, 4995989 ####[address] [address] Basophil Absolute 0.1 E9/L Normal 0.0-0.2 [facility] Comment on above: Performed By: #### 1 6620792, 1231900, 1827924 ####[address] [address] Eos Absolute 0.1 E9/L Normal 0.0-0.5 [facility] Comment on above: Performed By: #### 1 2628656, 8115679, 3216579 ####[address] [address] Lymph Absolute 1.6 E9/L Normal 1.0-4.0 [facility] Comment on above: Performed By: #### 1 4055724, 0605757, 7255323 ####[address] [address] Brooke Absolute 0.7 E9/L Normal 0.2-1.0 [facility] Comment on above: Performed By: #### 1 9815276, 5297782, 1365000 ####[address] [address] Neutro Absolute 3.4 E9/L Normal 2.0-7.5 [facility] Comment on above: Performed By: #### 1 6439280, 2016252, 9688813 ####[address] [place] [address] Platelet 291.0 E9/L Normal 150.0-500.0 [facility] Comment on above: Performed By: #### 1 9491121, 9624779, 6984138 ####[facility] [address] [place] [address] RBC 4.8 E12/L Normal 4.3-5.9 [facility] Comment on above: Performed By: #### 1 2091703, 1091674, 8251891 ####[facility] [address] [place] [address] WBC 5.8 E9/L Normal 4.0-11.0 [facility] Center Comment on above: Performed By: #### 1 [id number] ####[facility] [id number] [place] [address] CHEMISTRYOrdered By: SYSTEM SYSTEM on 08-14-2023 Anion [...] mg/mg High 10 - 20 Remisol Chem [facility] BMPon 08-14-2023 [facility] AGAP 10 [facility] BUN/CREAT RATIO 21 High [facility] Interpretation and review of laboratory results Abnormal [facility] Original Ordering Provider: CORRIE [place]ERTS [place] CBC W/ AUTO DIFFon Basophils (Bld) [#/Vol] 0.1 10*3/uL [facility] EOS ABSOLUTE 0.1 [facility] Interpretation and review of laboratory results Abnormal [facility] LYMPH ABSOLUTE 1.6 [facility] MONO ABSOLUTE 0.7 [facility] NEUTRO ABSOLUTE 3.4 [facility] Platelets (Bld) [#/Vol] 291.0 10*3/uL [facility] RBC (Bld) [#/Vol] 4.8 10*6/uL [facility] WBC (Bld) [#/Vol] 5.8 10*3/uL [facility] Original Ordering Provider: CORRIE GREEN [facility] EGFRon 08-14-2023 [facility] EGFR 81 - PINF [facility] Order added by Discern Expert. Original [...] Normal 80.0 - 100.0 fL Remisol Heme Brooke Absolute 0.7 E9/L Normal 0.2 - 1.0 [...] Remisol H jaye No Panel Informationon 08-14 [facility] Patient Educationon 08-14-19 Patient Education Orthopedics Buncount includes the [facility] Surgery, Care After This sheet gives you [...] and water are not available, use hand potato chip cooker machine. ? Change your dressing as told by [...] ask your health care provider. ? Take tzjq-fzr-prkfqll and prescription medicines only as told by your health care provider. ? Your medicines may cause constipation. To prevent or treat constipation, you may need to: ? Drink enough fluid to keep your urine pale yellow. ? Take hqtu-dcn-frnjvex or prescription medicines. ? Eat foods that are high in fiber, such as beans, whole grains, and fresh fruits and vegetables. ? Limit foods that are high in fat and processed sugars, such as fried or sweet foods. ? Do not wear high heels or tight-fitting shoes, even after you heal. ? K (more content not included)... Normal [facility] Physician Orderon 08-14-2023 Physician Order [id number] 50#1.00TIFF Normal [facility] eGFRon 08-14-2023 eGFR 81 mL/min/1.73 m2 Normal >=59 [facility] Comment on above: Order Comment: Order added by Discern Expert. Performed By: #### 1 [id number] ####[address] [place] [address] Nurse Consultation Noteon Nurse Consultation Note Reason [...] 2 cap(s), Oral, BID Flonase 0.05 mg/inh Keymar, 2 spray(s), Nasal, Daily gabapentin 300 mg [...] pneumococcal 23-valent vaccine 04/07/[address] [facility] Nurse Consultation Noteon Nurse Consultation Note [...] 2 cap(s), Oral, BID Flonase 0.05 mg/inh Keymar, 2 spray(s), Nasal, Daily gabapentin 300 mg [...] 09/08/2020 Recorded pneumococcal 23-valent vaccine 04/07/2005 Recorded [facility] Physician Orderon 08-07-2023 Physician Order [id number]#1.00TIFF [facility] Nurse Consultation Noteon Nurse Consultation [...] 2 cap(s), Oral, BID Flonase 0.05 mg/inh Keymar, 2 spray(s), Nasal, Daily gabapentin 300 mg [...] pneumococcal 23-valent vaccine 04/07/[address] [facility] Nurse Consultation Noteon Nurse Consultation Note [...] 2 cap(s), Oral, BID Flonase 0.05 mg/inh Keymar, 2 spray(s), Nasal, Daily gabapentin 300 mg [...] pneumococcal 23-valent vaccine 04/07/[address] [facility] Family Medicine Office/Clini c Noteon 01-01-2024 Family Medicine Office/Clinic Note Chief Complaint c/o [...] with voice recognition artificial intelligence software, specifically [employer]ong, Kambit and or [employer]. Substitutions may have occurred due to the inherent limitations of voice recognition and artificial intelligence software. Patient verbalized understanding and is agreeable to plan and course of treatment. This documentation was completed by voice-activated device and software. Inaccuracies compared to the original dictation of this provider are possible although this document has been overread and corrected. This note has been generated by CM [employer] and edited by Adarsh Chicas/ Adia Gao, [employer] Closing Clerk. Follow-up With When Contact Information KnappGuerita coates PA-C Only if needed [address] [place] [address] [phone] Additional Instructions: Only if needed Patient Education Budget-Friendly Healthy Eating Problem List/Past Medical History Ongoing Abnormal ECG Allergic rhinitis, seasonal Asthma, moderate persistent B12 nutritional deficiency BMI 34.0-34.9,adult Diastolic dysfunctio (more content not included)... Normal [facility] Comment on above: Result Comment: Elec tronically Signed By: Guerita Knapp PA-C\.br\Date and Time Signed: 07/10/23 23:28 EST\.br\Electronically Co-Signed By: Eben Lopez\.br\Date and Time Co-Signed: 07/05/23 16:06 EST\.br\Electronically Co-Signed By: Eben Lopez\.br\Date and Time Co-Signed: 07/05/23 16:08 EST\.br\Electronically Co-Signed By: Eben Lopez\.br\Date and Time Co-Signed: 07/05/23 16:09 EST Patient Educationon 07-05-20 23 Patient Education Nutrition Budget-Friendly Healthy Eating There [...] fruits, and frozen vegetables. ? Avoid buying vmwfm-en-lgp foods, such as pre-cut fruits and vegetables and pre-made salads. ? If possible, shop around to discover where you can find the best prices. Consider other retailers such as makeena stores, larger wholesale stores, local fruit and vegetable [employer], and [employer] markets. ? Do not shop when you [...] for buyi (more content not included)... Normal [facility] Ambulatory Visit Summaryon 1 08-27-2022 Ambulatory Visit Summary ANGELA ALONZO :1955 Visit Date:06/26/2023 Ambulatory Visit Instructions Your Diagnosis Perennial allergic rhinitis Your Care Team Attending Physician - RTIU HALL, Vikram Primary Care Physician - RITU HALL FAAFP, Esperanza Carmichael This Is Your Medications List [facility] [place] (Handicapped Parking Placard) [...] mg Tab) fluticasone nasal (Flonase 0.05 mg/inh Keymar) gabapentin (gabapentin 300 mg Cap) hydrOXYzine (hydrOXYzine [...] Follow-Up Appointments Monday 10:40 AM EST Where: [facility] [place] [phone]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 sprain, initial encounter Procedures Date Procedure Procedure Detail Performing Clinician Start: 08-16-2023 Radiologic examinati on knee 3 views Reggie BADILLO Work Phone: Start: 08-14-2023 [facility] BMP Brady D Dol ce DPM FACFAS Work Phone: Start: 08-14-2023 [facility] CBC W/ AUTO DIFF M arc D Dolce DPM FACFAS Work Phone: Start: 08-14-2023 [facility] EGFR Brady D Dol ce DPM FACFAS Work Phone: Start: 07-07-2022 Colonoscopy Brady Dolce DPM FACFAS Work Phone: Start: 07-07-2022 Colonoscopy XXXX NONE Comment on above: sigmoid polyp x1 Start: 05-10-2022 Vaccine refused by patient Esperanza CHANEY Start: 01-03-2022 Total knee replacement Esperanza CHANEY Start: 12-17-2021 Catheterization of l eft heart Marlon Finney Start: 12-28-2019 CT of chest without contrast Ramiro Payton Olsen Work Phone: Start: 12-28-2019 CT cervical spine wi thout contrast Ramiro Payton Oswaldo Work Phone: Start: 12-28-2019 12 lead ECG Ramiro lOsen Work Phone: Start: 08-22-2012 left needle localize [...] 07-07-2032 Screening for malignant neoplasm of colon [facility] Start: 2031 RSV Vaccine (1 - 1-dose 75+ series) RSV Vaccine (1 - 1-dose 75+ series) [facility] Start: 04-16-2024 End: 04-16-2024 Patient encounter procedure 04/16/2024 11:30 AM EDT Office Visit [facility] [address] [place] [phone] Brady Colindres, DPM FACFAS [address] [place] [address] [facility] Start: 03-10-2024 Covid-19 Vaccine ( season) Covid-19 Vaccine ( season) [facility] Start: 03-10-2024 Influenza vaccination Influenza Vaccine (#1) [facility] Start: 01-04-2024 End: 01-04-2024 Patient encounter procedure 01/04/2024 9:00 AM EDT Office Visit [facility] [address] [facility] [place] [phone] Joan Warner DO [address] [place] [address] [facility] Start: 09-05-2023 End: 09-05-2023 Patient encounter procedure 09/05/2023 10:30 AM EST Office Visit [facility] [address] [place] [phone] Brady Colindres, DPM FACFAS [address] [place] [address] [facility] Start: 08-24-2023 End: 08-24-2023 Patient encounter procedure 08/24/2023 8:00 AM EST Procedure Visit [facility] Brady Colindres, DPM FACFAS [address] [place] [address] [facility] Start: 08-16-2023 End: 08-16-2023 Patient encounter procedure 08/16/2023 8:15 AM EST Office Visit [facility] [address] [place] [phone] Reggie Marie PA [address] [place] [address] [facility] Start: 07-10-2023 Advance Directive Discussion Advance Directive Discussion [facility] Start: 03-10-2023 Influenza vaccination Influenza Vaccine (#1) [facility] Start: 03-10-2022 Influenza vaccination Flu vaccine (#1) [facility] Start: 02-23-2022 End: 02-23-2022 Patient encounter procedure 02/23/2022 Appointment Physical Therapy Otis Edward PTA [facility] Start: 02-21-2022 End: 02-21-2022 Patient encounter procedure 02/21/2022 Appointment Physical Therapy Otis Edward PTA [facility] Start: 02-18-2022 End: 02-18-2022 Patient encounter procedure 02/18/2022 Appointment Physical Therapy Otis Edward REGISTERED REPRESENTATIVE [facility] Start: 02-16-2022 End: 02-16-2022 Patient encounter procedure 02/16/2022 Appointment Physical Therapy Otis Edward REGISTERED REPRESENTATIVE [facility] Start: 02-14-2022 End: 02-14-2022 Patient encounter procedure 02/14/2022 Appointment Physical Therapy Marcella Dover REGISTERED REPRESENTATIVE [facility] Start: 02-11-2022 End: 02-11-2022 Patient encounter procedure 02/11/2022 Appointment Physical Therapy Kyara Villegas, PT [facility] Start: 02-09-2022 End: 02-09-2022 Patient encounter procedure 02/09/2022 Appointment Physical Therapy Otis Edward REGISTERED REPRESENTATIVE [facility] Start: 02-07-2022 End: 02-07-2022 Patient encounter procedure 02/07/2022 Appointment Physical Therapy Otis Edward REGISTERED REPRESENTATIVE [facility] Start: 02-04-2022 End: 02-04-2022 Patient encounter procedure 02/04/2022 Appointment Physical Therapy Otis Edward REGISTERED REPRESENTATIVE [facility] Start: 02-02-2022 End: 02-02-2022 Patient encounter procedure 02/02/2022 Appointment Physical Therapy Otis Edward REGISTERED REPRESENTATIVE [facility] Start: 10-14-2021 COVID-19 Vaccine (4 - Booster for Moderna series) COVID-19 Vaccine (4 - Booster for Moderna series) [facility] Start: 10-14-2021 COVID-19 Vaccine (4 - Booster) COVID-19 Vaccine (4 - Booster) [facility] Start: 2021 Pneumococcal 65+ years Vaccine (1 - PCV) Pneumococcal 65+ years Vaccine (1 - PCV) [facility] Start: 2021 Pneumococcal Vaccine: 65+ (1 of 1 - PCV) Pneumococcal Vaccine: 65+ (1 of 1 - PCV) [facility] Start: 2021 Pneumococcal Vaccine: 65+ Years (2 - PCV) Pneumococcal Vaccine: 65+ Years (2 - PCV) [facility] Start: 2021 Pneumococcal Vaccine: 65+ Years (2 of 2 - PCV) Pneumococcal Vaccine: 65+ Years (2 of 2 - PCV) [facility] Start: 2021 Screening for osteoporosis Bone Density Screening [facility] Start: 2011 Screening for osteoporosis DEXA (modify frequency per FRAX score) [facility] Start: 2006 Screening for malignant neoplasm of breast Breast cancer screen [facility] Start: 2006 Shingles vaccine (1 of 2) Shingles vaccine (1 of 2) [facility] Start: 2006 Shingrix Vaccine (1 of 2) Shingrix Vaccine (1 of 2) [facility] Start: 2001 Diabetes Screening Diabetes Screening [facility] Start: 2001 Lipid panel Lipid Screening [facility] Start: 2001 Screening for malignant neoplasm of colon [facility] Start: 1996 Lipid panel Lipids [facility] Start: 1996 Screening for malignant neoplasm of breast [facility] Start: 1986 Screening for malignant neoplasm of cervix [facility] Start: 1977 Screening for malignant neoplasm of cervix Pap smear [facility] Start: 1975 DTaP/Tdap/Td vaccine (1 - Tdap) DTaP/Tdap/Td vaccine (1 - Tdap) [facility] Start: 1975 Urine microalbumin profile DTaP,Tdap,Td Vaccine (1 - Tdap) [facility] Start: 1974 Anxiety Screening Anxiety Screening [facility] Start: 1974 Depression Screening Depression Screening [facility] Start: 1974 Hepatitis C screening [facility] Start: 1971 HIV screening HIV screen [facility] Start: 1968 Depression Screen Depression Screen [facility] Start: 1956 Annual Wellness Visit (AWV) Annual Wellness Visit (AWV) [facility] Start: 1956 Screening for malignant neoplasm of colon [facility] Immunizations Immunization Date Immunization Notes Care Provider Rloo palomares 06-15-2021 SARS-CoV-2 (COVID-19 ) [id number] vaccine Esperanza CHANEY [place] 10-06-2020 SARS-CoV-2 (COVID-19 ) mRNA-1273 vaccine Esperanza [employer] [place] Comment on above: Result Comment: 2022: 61 09-26-2020 SARS-CoV-2 (COVID-19 ) mRNA-1273 vaccine Esperanza [employer] [place] 09-08-2020 SARS-CoV-2 (COVID-19 ) mRNA-1273 vaccine Esperanza [employer] [place] 04-07-2005 pneumococcal polysaccharide vaccine, 23 valent Bradnicolesherley RITU [place] NEGATED: Highlighted row has not occurred!05-10-2023 pneumococcal polysaccharide vaccine, 23 valent Esperanza CHANEY [place] NEGATED: Highlighted row has not occurred!05-10-2023 pneumococcal conjugate vaccine, 13 valent Esperanza CHANEY [place] NEGATED: Highlighted row has not occurred!05-10-2023 influenza virus vaccine, unspecified formulation Esperanza CHANEY [place] NEGATED: Highlighted row has not occurred!09-20-2022 influenza virus vaccine, unspecified formulation Guerita Knapp [place] NEGATED: Highlighted row has not occurred!06-27-2022 influenza virus vaccine, unspecified formulation Nayan Cherry [facility] [place] NEGATED: Highlighted row has not occurred!11-01-2022 influenza virus vaccine, unspecified formulation Esperanza CHANEY [facility] [place] NEGATED: Highlighted row has not occurred!05-10-2022 pneumococcal polysaccharide vaccine, 23 valent Esperanza CHANEY [place] Payers Date Payer Category Payer Medicare [id number] 2021 Unknown [id number] 2021 Medicare [id number] .[id number] 2020 Unknown 2020 Unknown [id number] 2019 Unknown [id number] 2019 Unknown [facility]/ LDEN RULE xxxxxxxxx 2019-Present xxxxxxxxx [id number] 2019 Unknown [id number] 1956 Unknown [id number] 2.16.840.1.286678.3.579.2.902 1956 Unknown [id number] 2.16.840.1.675367.3.579.2.174 1956 Unknown [id number] 2.16.840.1.770185.3.579.2.174 1956 Unknown [id number] 2.16.840.1.969181.3.579.2.174 1956 Unknown [id number] 2.16.840.1.086469.3.579.2.174 1956 Unknown [id number] 2.16.840.1.220620.3.579.2.174 1956 Unknown [id number] 2.16.840.1.798388.3.579.2.174 1956 Unknown [id number] 2.16.840.1.019394.3.579.2.174 1956 Unknown [id number] 2.16.840.1.034040.3.579.2.174 1956 Unknown [id number] 2.16.840.1.618385.3.579.2.174 1956 Unknown [id number] 2.16.840.1.968441.3.579.2.174 1956 Unknown [id number] 2.16.840.1.942714.3.579.2.174 1956 Unknown [id number] 2.16.840.1.627179.3.579.2.174 1956 Unknown [id number] 2.16.840.1.120398.3.579.2.174 1956 Unknown [id number] 2.16.840.1.847946.3.579.2.174 1956 Unknown [id number] 2.16.840.1.041828.3.579.2.174 1956 Unknown [id number] 2.16.840.1.427407.3.579.2.356 1956 Unknown [id number] 2.16.840.1.520916.3.579.2.727 1956 Unknown [id number] 2.16.840.1.127478.3.579.2.727 1956 Unknown [id number] 2.16.840.1.385027.3.579.2.727 1956 Unknown [id number] 2.16.840.1.837535.3.579.2.727 1956 Unknown [id number] 2.16.840.1.197020.3.579.2.727 1956 Unknown [id number] 2.16.840.1.520554.3.579.2. 1956 Unknown [id number] 2.16.840.1.829214.3.579.2 1956 Unknown [id number] 2.16.840.1.566785.3.579.2 1956 Unknown [id number] 2.16.840.1.892874.3.579.2 1956 Unknown [id number] 2.16.840.1.512242.3.579.2 1956 Unknown [id number] 2.16.840.1.810152.3.579.2 1956 Unknown [id number] 2.16.840.1.924541.3.579.2 1955 Unknown [id number] 2.16.840.1.437014.3.579.2 1955 Unknown [id number] 2.16.840.1.799884.3.579.2 1956 Unknown [id number] 2.16.840.1.065592.3.579.2 1956 Unknown [id number] 2.16.840.1.621454.3.579.2 1956 Unknown [id number] 2.16.840.1.903632.3.579.2 1956 Unknown [id number] 2.16.840.1.428862.3.579.2 1956 Unknown [id number] 2.16.840.1.727817.3.579.2 1956 Unknown [id number] 2.16.840.1.955037.3.579.2 1956 Unknown [id number] 2.16.840.1.097144.3.579.2. 1956 Unknown [id number] 2.16.840.1.325098.3.579.2 1956 Unknown [id number] 2.16.840.1.896775.3.579.2. 1956 Unknown [id number] 2.16.840.1.168122.3.579.2 1956 Unknown [id number] 2.16.840.1.558164.3.579.2 1956 Unknown [id number] 2.16.840.1.008564.3.579.2 1956 Unknown [id number] 2.840.1.883538.3.579.2 1956 Unknown [id number] 2.16.840.1.025416.3.579.2 1956 Unknown [id number] 2.16.840.1.776898.3.579.2 1956 Unknown [id number] 2.16.840.1.902502.3.579.2 1956 Unknown [id number] 2.16840.1.213873.3.579.2 1956 Unknown [id number] 2.16.840.1.312568.3.579.2 1956 Unknown [id number] 2.16.840.1.710502.3.579.2 1956 Unknown [id number] 2.16.840.1.703743.3.579.2 1956 Unknown [id number] 2.16.840.1.849521.3.579.2 1956 Unknown [id number] 2.16.840.1.036705.3.579.2.72 1956 Unknown [id number] 2.16.840.1.131298.3.579.2. 1956 Unknown [id number] 2.16.840.1.898025.3.579.2. 1956 Unknown [id number] 2.16.840.1.142813.3.579.2. 1956 Unknown [id number] 2.16.840.1.447714.3.579.2. 1956 Unknown [id number] 2.16.840.1.209881.3.579.2 1956 Unknown [id number] 2.16.840.1.377752.3.579.2 1956 Unknown [id number] 2.16.840.1.005800.3.579.2 1956 Unknown [id number] 2.16.840.1.548880.3.579.2 1956 Unknown [id number] 2.16.840.1.150809.3.579.2 1956 Unknown [id number] 2.16.840.1.855176.3.579.2 1956 Unknown [id number] 2.16.840.1.572459.3.579.2. 1956 Unknown [id number] 2.16.840.1.411042.3.579.2. 1956 Unknown [id number] 2.16.840.1.569046.3.579.2 1956 Unknown [id number] 2.16.840.1.153665.3.579.2.125 9 1956 Unknown [id number] 2.16.840.1.778785.3.579.2.125 9 1956 Unknown [id number] 2.16.840.1.731940.3.579.2.125 9 1956 Unknown [id number] 2.16.840.1.441999.3.579.2.125 9 1956 Unknown [id number] 2.16.840.1.944640.3.579.2.125 9 1956 Unknown [id number] 2.16.840.1.104726.3.579.2.125 9 1956 Unknown [id number] 2.16.840.1.681700.3.579.2.125 9 1956 Unknown [id number] 2.16.840.1.280800.3.579.2.125 9 1956 Unknown [id number] 2.16.840.1.005582.3.579.2.125 9 1956 Unknown [id number] 2.16.840.1.133700.3.579.2.125 9 1956 Unknown [id number] 2.16.840.1.424416.3.579.2.125 9 1956 Unknown [id number] 2.16.840.1.637336.3.579.2.125 9 1956 Unknown [id number] 2.16.840.1.397373.3.579.2.125 9 1956 Unknown [id number] 2.16.840.1.409342.3.579.2.125 9 1956 Unknown [id number] 2.16.840.1.330376.3.579.2.125 9 1956 Unknown [id number] 2.16.840.1.765332.3.579.2.125 9 1956 Unknown [id number] 2.16.840.1.339707.3.579.2.125 9 1956 Unknown [id number] 2.16.840.1.097767.3.579.2.125 9 1956 Unknown [id number] 2.16.840.1.866477.3.579.2.125 9 1956 Unknown [id number] 2.16.840.1.245346.3.579.2.125 9 1956 Unknown [id number] 2.16.840.1.395428.3.579.2.125 9 1956 Unknown [id number] 2.16.840.1.172758.3.579.2.125 9 1956 Unknown [id number] 2.16.840.1.653274.3.579.2.125 9 1956 Unknown [id number] 2.16.840.1.292512.3.579.2.125 9 1956 Unknown [id number] 2.16.840.1.921790.3.579.2.125 9 1956 Unknown [id number] 2.16.840.1.118237.3.579.2.125 9 1956 Unknown [id number] 2.16.840.1.830341.3.579.2.125 9 1956 Unknown [id number] 2.16.840.1.994610.3.579.2.125 9 1956 Unknown [id number] 2.16.840.1.494782.3.579.2.125 9 1956 Unknown [id number] 2.16.840.1.823666.3.579.2.125 9 1956 Unknown [id number] 2.16.840.1.804498.3.579.2.125 9 1956 Unknown [id number] 2.16.840.1.807889.3.579.2.125 9 Social History Date Type Detail Facility Start: 12-28-2019 End: 01-03-2023 Tobacco smoking status NHIS Never smoker [facility] Comment on above: Denies use. Start: 12-28-2019 End: 04-09-2024 Alcohol intake Lifetime non-drinker (finding) [facility] Start: 12-28-2019 History SDOH Alcohol Frequency 1 [facility] Start: 1955 Sex Assigned At Not on file [facility] Exposure to SARS-CoV -2 (event) Not sure [facility] Tobacco smoking status Never [facility]ay[facility] [email or web address] Comment on above: Denies use. Start: 08-14-2023 End: 04-09-2024 Sex Assigned At Female [facility] [email or web address] Tobacco smoking stat [facility] Tobacco smoking consumption unknown [facility] Start: 01-03-2023 Tobacco use and exposure Smokeless tobacco non-user [facility] Start: 08-14-2023 End: 04-09-2024 History of Social function [facility] Medical Equipment Procedure Code Equipment Code Equipment Origin al Text Equipment Identifier Dates KNEE TOTAL ARTHROPLASTY Stephanie Joan 01/03/22 Non Biological Knee R {[id number] [id number] FDA Start: 01-03-2022 Unknown Unknown 07/07/22 [...] Assessment Result Facility 03-01-2024 Functional Status N/A [facility] 01-02-2024 Functional Status N/A [facility] 10-30-2023 Functional Status N/A [facility] 08-14-2023 Functional Status N/A Domínguez-Tit [facility] 07-05-2023 Functional Status N/A Domínguez[facility]Tit [facility] 05-10-2023 Functional Status N/A Domínguez-Tit [facility] 09-20-2022 Functional Status N/A [facility] 07-07-2022 Functional Status N/A Sang Madiha [facility] 06-27-2022 Functional Status N/[facility] [place] 05-10-20[facility] Functional Status N/A Cassandra [facility] 01-18-2022 Functional Status N/A [facility] Madiha [facility] Clinical Notes 12-10-2019 to 04-10-2024 Telephone Encounter - Mila Marroquin - 04/10/2024 11:30 AM EDTTelephone Encounter - Mila Marroquin - 04/10/2024 11:30 AM EDTTelephone Encounter - Loren Joaquin LPN - 04/10/2024 9:52 AM EDT Note Date & Type Note Facility 04-10-2024 Telephone encounter Note Summary: 1st attempt LVM w/callback number for pt to schedule [facility] 04/10/24 [facility] 04-10-2024 Miscellaneous Notes Summary: 1st attempt LVM w/callback number for pt to schedule [facility] 04/10/24 Patient to see [facility] [place] not pain management per 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 Please call and assist in scheduling. Patient aware appt with Dr Montoya will be cancelled. documented in this encounter [facility] 04-10-2024 Telephone encounter Note Patient to see [facility] [place] not pain management per 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 Please call and assist in scheduling. Patient aware appt with Dr Montoya will be cancelled. [facility] 04-09-2024 History of Presen t illness Narrative Patient: Angela Alonzo : 1955 PCP: Esperanza Chaney MD SUBJECTIVE This is a 68 y.o. female that presents today The patient is here status post arthrodesis right great toe procedure. Postop week 9 They deny fevers, chills, nausea, vomiting, calf pain and shortness of breath. Pain level is being managed with ice elevation and pain medication. They have been relatively compliant with her postoperative care. 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 This area is quite painful she was referred to [facility] she has not been able to get into the [facility]. Great toe is doing better. Allergies: Allergies Allergen Reactions Codeine GI intolerance, Dizziness, Nausea And Vomiting and Unknown Amoxicillin Rash Naproxen Nausea Only Past Medical History: Past Medical History: Diagnosis Date Arthritis Asthma ([facility]) Depression ([facility]) Osteoporosis ([facility]) Rhinitis Medications: Current Outpatient Medications: albuterol (2.5 MG/3ML) 0.083% nebulizer solution, 0.083% - 3mL dosing units, Inhalation, q6hr Wheezing, 100 EA, Refill(s) 2, [facility] [id number], 165, cm, 07/07/22 9:42:00 EST, Height/Length Dosing, 98, kg, 07/07/22 9:42:00 EST, Weight Dosing, Disp: , Rfl: cetirizine (ZyrTEC) 10 MG tablet, Cetirizine HCl, Disp: , Rfl: cyanocobalamin (Vitamin B-12) 100 MCG tablet, Take 100 mcg by mouth in the morning., Disp: , Rfl: escitalopram (Lexapro) 20 MG tablet, Take 20 mg by mouth., Disp: , Rfl: hydrOXYzine HCl (Atarax) 25 MG tablet, Take 25 mg by mouth., Disp: , Rfl: montelukast (Singulair) 10 MG tablet, Take 10 mg by mouth., Disp: , Rfl: predniSONE (Deltasone) 10 MG tablet, Take 5 tabs p.o. daily x3 days Take 4 tabs p.o. daily x3 days Take 3 tabs p.o. daily x3 days Take 2 tabs p.o. daily x3 days Take 1 tab p.o. daily x3 days, Disp: 45 tablet, Rfl: 0 Review of systems: Constitutional: Denies fever, chills, nausea, vomiting GI: Denies abdominal pain, cramping, loose stool, gastric ulcers Musculoskeletal: Denies low back pain, knee pain, systemic arthritis Neurologic: Denies burning, tingling, transient paralysis OBJECTIVE Physical Examination: DERM: Positive hair growth to b/l feet with good skin turgor noted. Negative openings in skin nails 1 through 10 are thickened elongated yellow and crumbly with subungual debris and painful palpation 1 through 10. VASC: DP /PT were palpable bilateral. Capillary refill time < 3 seconds Digits 1-5 bilateral NEURO: Bayard Jayde 5.07 monofilament was intact B/L. Vibratory sensation was intact B/L Musculoskeletal: Muscle strength was +5 over 5 all intrinsic and extrinsic muscles tested. Negative Homans test noted Surgical site evaluation: The incision site is healing well without signs infection. Minimal swelling noted. Consistent with the patient's level of surgery consistent with time frame postoperatively. Joint in good position and alignment excellent vsuz-fz-jynu contact Three views were taken today Review AP/MO/LAT foot: No fractures or dislocations seen right fixation intact trabeculation noted across the arthrodesis site appears to be trabeculated position and alignment ASSESSMENT 1. Hallux rigidus of right foot PLAN I educated the patient the radiographic findings. Patient is doing very well with the fusion recommended she return to a stiff-soled shoe to tolerance. CORRIE Sandy documented in this encounter [facility] 03-25-2024 Note Nurse Consultation N ote Reason [...] 2 cap(s), Oral, BID Flonase 0.05 mg/inh Keymar, 2 spray(s), Nasal, Daily Handicapped Parking Placard, [...] 09/08/2020 Recorded pneumococcal 23-valent vaccine 04/07/2005 Recorded [facility] 03-13-2024 Note Nurse Consultation N ote Reason [...] 2 cap(s), Oral, BID Flonase 0.05 mg/inh Keymar, 2 spray(s), Nasal, Daily Handicapped Parking Placard, [...] 09/08/2020 Recorded pneumococcal 23-valent vaccine 04/07/2005 Recorded [facility] 02-26-2024 Note Nurse Consultation N ote Reason [...] 2 cap(s), Oral, BID Flonase 0.05 mg/inh Keymar, 2 spray(s), Nasal, Daily Handicapped Parking Placard, [...] 09/08/2020 Recorded pneumococcal 23-valent vaccine 04/07/2005 Recorded [facility] 02-12-2024 Note Nurse Consultation N ote Reason [...] 2 cap(s), Oral, BID Flonase 0.05 mg/inh Keymar, 2 spray(s), Nasal, Daily Handicapped Parking Placard, [...] 09/08/2020 Recorded pneumococcal 23-valent vaccine 04/07/2005 Recorded [facility] 01-29-2024 Note Nurse Consultation N ote Reason [...] 2 cap(s), Oral, BID Flonase 0.05 mg/inh Keymar, 2 spray(s), Nasal, Daily Handicapped Parking Placard, [...] 09/08/2020 Recorded pneumococcal 23-valent vaccine 04/07/2005 Recorded [facility] 01-15-2024 Note Nurse Consultation N ote Reason [...] 2 cap(s), Oral, BID Flonase 0.05 mg/inh Keymar, 2 spray(s), Nasal, Daily Handicapped Parking Placard, [...] 09/08/2020 Recorded pneumococcal 23-valent vaccine 04/07/2005 Recorded [facility] 01-02-2024 Hospital Discharg e instructions Patient Education 01/02/2024 11:08:55 Budget-Friendly Healthy [...] frozen fruits, and frozen vegetables. Avoid buying fzvmo-ws-ygb foods, such as pre-cut fruits and vegetables [...] provider. Document Revised: 04/08/2021 Document Reviewed: 04/08/2021 ChartITright Patient Education 2022 [employer]. Follow Up Care 01/01/2024 08:21:19 With:Ra MENDES, Guerita Marshall Address: [address] [place] [phone] When:Within 6 Month(s) Comments:For check up [facility] [place] 08-16-2023 History of Presen t illness Narrative GENERAL HISTORY AND PHYSICAL: NAME: [...] Past Medical History: Diagnosis Date Arthritis Asthma ([facility]) Depression ([facility]) Osteoporosis ([facility]) Rhinitis PAST SURGICAL HISTORY: Past Surgical History: Procedure Laterality Date BREAST LUMPECTOMY HEEL SPUR SURGERY KNEE SURGERY Right 01/03/2022 TKA TOTAL KNEE ARTHROPLASTY Right 01/03/2022 [facility] SOCIAL HISTORY: Social History Occupational History Not [...] Inhalation, q6hr Wheezing, 100 EA, Refill(s) 2, [facility] [id number], 165, cm, 07/07/22 9:42:00 EST, Height/Length Dosing, [...] joint her left knee is arthritic with bspf-fu-vsso changes to the medial compartment as well [...] organs. JUSTINO Persaud documented in this encounter [facility] 08-16-2023 Instructions JUSTINO Persaud - 08/16/2023 8:15 [...] body and organs. documented in this encounter [facility] 08-14-2023 Hospital Discharg e instructions Patient Education 08/14/2023 11:45:13 Bunion Surgery, [...] and water are not available, use hand potato chip cooker machine. ?Change your dressing as told by your [...] quitting, ask your health care provider. Take yace-qfz-nsbzqvv and prescription medicines only as told by your health care provider. Your medicines may cause constipation. To prevent or treat constipation, you may need to: ?Drink enough fluid to keep your urine pale yellow. ?Take esvb-myi-mimwbuq or prescription medicines. ?Eat foods that are [...] provider. Document Revised: 10/30/2020 Document Reviewed: 10/30/2020 [employer] Patient Education 2022 Storemates. Follow Up Care 08/07/2023 16:27:59 With:Ra MENDES, Guerita Marshall Address: [address] [place] [address] [place] [address] [phone] When: only if needed Comments:Only if needed [facility] [place] 07-05-2023 Hospital Discharg e instructions Patient Education 07/05/2023 13:21:59 Budget-Friendly Healthy [...] frozen fruits, and frozen vegetables. Avoid buying oyanp-yc-fmn foods, such as pre-cut fruits and vegetables and pre-made salads. If possible, shop around to discover where you can find the best prices. Consider other retailers such as [employer] stores, larger wholesale stores, local fruit and vegetable [employer], and [employer] markets. Do not shop when you are [...] provider. Document Revised: 04/08/2021 Document Reviewed: 04/08/2021 ChartITright Patient Education 2022 [employer]ates. Follow Up Care 07/04/2023 08:35:54 With:Guerita Knapp PA-C Address: [address] [place] [address] [place] [address]- [phone] When: only if needed Comments:Only if needed [facility] [place] 05-10-2023 [facility] Discharg e instructions Patient Education 05/10/2023 09:06:15 BMI for [...] numbers. This can be done either in [place] ([place] or metric measurements. Note that charts and online BMI calculators are available to help you find your BMI quickly and easily without having to do these calculations yourself. To calculate your BMI in [place] ([place] measurements: 1.Measure your weight in pounds [...] Centers for Disease Control and Prevention: www.cdc.gov Chinese Heart Association: www.heart.org National Heart, Lung, and Blood [place]: www.nhlbi.nih.gov Summary Body mass index (BMI) is a number that is calculated from a person's weight and height. BMI may help estimate how much of a person's weight is composed of fat. BMI can help identify those who may be at higher risk for certain medical problems. BMI can be measured using [place] measurements or metric measurements. BMI charts are used to identify whether you are underweight, normal weight, overweight, or obese. This information is not intended to replace advice given to you by your health care provider. Make sure you discuss any questions you have with your health care provider. Document Revised: 03/18/2020 Document Reviewed: 01/24/2020 ChartITright Patient Education 2022 [employer]. 05/10/2023 09:06:12 Dyslipidemia Dyslipidemia Dyslipidemia is an [...] quitting, ask your health care provider. Take thtu-xdv-aimqpbs and prescription medicines only as told by [...] provider. Document Revised: 08/30/2021 Document Reviewed: 08/30/2021 [employer]right Patient Education 2022 [employer]. 05/10/2023 09:06:07 Insomnia Insomnia Insomnia is a [...] go back to bed. General instructions Take xegz-opf-modsugy and prescription medicines only as told by [...] the National Suicide Prevention Lifeline at or 630. This is open 24 hours a day. Text the Crisis Text Line at 598702. Summary Insomnia is a sleep disorder that [...] provider. Document Revised: 06/06/2022 Document Reviewed: 06/06/2022 ChartITright Patient Education 2022 [employer]. 05/10/2023 09:06:04 Managing Depression, Adult Managing Depression, [...] pray, or go to a place of quaker. Do some deep breathing. To do this, [...] sugars, or salt (sodium). General instructions Take baqc-nss-ildcodb and prescription medicines only as told by [...] (ADAA): www.adaa.org Mental Health Su: www.mentalhealthamerica.net National Turner on Mental Illness: www.tyrone.org Contact a health [...] department or: Call your local emergency services (268 in the [place] Call a suicide crisis helpline, such as the National Suicide Prevention Lifeline at or 562 in the [place] This is open 24 hours a day in the [place] Text the Crisis Text Line at 802375 (in the [place] Summary If you are [...] provider. Document Revised: 01/19/2022 Document Reviewed: 05/06/2020 ChartITright Patient Education 2022 [employer]. 05/10/2023 09:05:58 Asthma, Adult Asthma, Adult Asthma [...] breathing (shortness of breath). 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 Chest tightness. Tiredness (fatigue) with minimal [...] condition. Follow these instructions at home: Take rdfz-cgj-rnhuqft and prescription medicines only as told by [...] provider. Document Revised: 04/13/2022 Document Reviewed: 04/04/2022 Elsevier Patient Education 2022 [employer]oremates. [facility] [place] 07-07-2022 Hospital Discharg e instructions Patient Education 07/07/2022 13:39:05 Colon Polyps [...] 03/22/2005 Document Revised: 10/11/2018 Document Reviewed: 10/11/2018 ChartITright Patient Education 2020 [employer]. 07/07/2022 12:57:04 Colonoscopy, Adult, Care After Colonoscopy, [...] a slower pace than normal. ?Eat soft, humq-je-qhnpvk foods. Take jpjw-vlq-lhlznil or prescription medicines only as told by [...] 02/07/2005 Document Revised: 04/18/2018 Document Reviewed: 09/06/2016 ChartITright Patient Education 2020 [employer] Follow Up Care 06/27/2022 14:47:12 With:Nayan Cherry Address:Unknown When: Unknown [facility] 07-07-2022 Evaluation + Plan note Extrac katerine from: Title:Pre-anesthesia - Endoscopy Author:Best Aguilar Jr., DO Date:07/07/22 Plan [place] Society of Anesthesiologists (ASA) physical status classification: Class II. Anesthetic Preoperative Plan Anesthesia: General. . Anesthetic plan, risks, benefits, and alternatives discussed with the patient and/or family. Patient verbalized understanding. Future Appointments Appointment Date:05/10/2023 08:00:00 AM Scheduled Provider: Location:[facility] [place] Appointment Type:FM Medicare Wellness Subsequent Future Scheduled Tests Laboratory* BUN 01/04/22 * Creatinine 01/04/22 * Electrolyte Panel 01/04/22 * CBC w/ Auto Diff 01/04/22 Radiology* CV Cardiovascular 12/13/21 [facility]12[facility]2022 Hospital Discharge instructions Patient Education 06/27/2022 [...] ?Hypothyroidism. ?Polycystic ovarian syndrome (PCOS). ?Binge-eating disorder. ?Scandia syndrome. Taking certain medicines, such as steroids, [...] food choices, such as grocery stores and [employer]. What are the signs or symptoms? The [...] and how much exercise you get. Take zgpq-hgx-ymgjhre and prescription medicines only as told by [...] 08/03/2005 Document Revised: 02/28/2019 Document Reviewed: 02/28/2019 ChartITright Patient Education 2019 [employer]oremates. [facility] [place] 11-01-2022 Hospital Discharge instructions Patient Education 05/10/2022 [...] your health care provider or diet and spine specialist (dietitian) before starting any calcium supplements. [...] mg per 8 oz serving. Grains Fortified radtu-mk-ole cereals, 100 1,000 mg per 8 oz serving. Fortified frozen waffles, 200 mg in two waffles. Meats and other proteins Sardines, canned with bones, 325 mg per 3 oz serving. [place], canned with bones, 180 mg per 3 oz serving. Canned shrimp, 125 mg per 3 oz serving. Baked beans, 160 mg per 4 oz serving. Dairy Yogurt, plain, low-fat, 310 mg per 6 oz serving. Milk, 300 mg per 8 oz serving. Chinese cheese, 195 mg per 1 oz serving. [...] 02/07/2005 Document Revised: 06/19/2018 Document Reviewed: 06/19/2018 ChartITright Patient Education 2020 [employer]. 05/10/2022 08:50:00 Budget-Friendly Healthy Eating Budget-Friendly Healthy [...] frozen fruits, and frozen vegetables. Avoid buying tjjgv-an-dwd foods, such as pre-cut fruits and vegetables and pre-made salads. If possible, shop around to discover where you can find the best prices. Consider other retailers such as dollar stores, larger wholesale stores, local fruit and vegetable stands, and [employer] markets. Do not shop when you are [...] 02/27/2015 Document Revised: 06/27/2018 Document Reviewed: 06/27/2018 ChartITright Patient Education 2020 [employer] Inc. 05/10/2022 08:49:58 BMI for Adults BMI [...] height. This can be done either in [place] ([place] or metric measurements. Note that charts are available to help you find your BMI quickly and easily without having to do these calculations yourself. To calculate your BMI in [place] ([place] measurements, your health care provider will: [...] medical problems. BMI can be measured using [place] measurements or metric measurements. To interpret your [...] 03/07/2005 Document Revised: 06/08/2018 Document Reviewed: 05/09/2018 ChartITright Patient Education 2020 [employer]ates. 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 - MET LTG Goal 1 Status:: Met retirement goal 2: Pt to increase tandem stance balance to 10 s 2:3 trials for improved stability and safe amb. - MET LTG Goal 2 Status:: Met retirement goal 3: Pt to be able to amb on unlevel surface without an AD and no deviations for 150ft. 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 retirement goal 3: Pt to be able to amb on unlevel surface without an AD and no deviations for 150ft. 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 Post Treatment Pain: 0/10 Time In: 0946 Time Out: 1034 Timed Code Treatment Minutes: 48 Minutes Total Treatment Time: 48Minutes Marcella Dover, TAYLOR Date: 02/14/2022 documented in this encounterBON [employer] Phone: 1(876) 669-490908-05-2022 History of Present illness Narrative* Georgia Pham [...] - MET STG Goal 3 Status:: Met Fdc Goals Time Frame for retirement goals : 12 retirement goal 1: Pt to increase R knee flexion MMT to 4+/5 to help with amb and stairs. retirement goal 2: Pt to increase tandem stance balance to 10 s 2:3 trials for improved stability and safe amb. 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 Post Treatment Pain: 09/16 Time In: 1033 Time Out : 1115 Timed Code Treatment Minutes: 42 Minutes Total Treatment Time: 42 Minutes Otis Edward, TAYLOR Date: 02/07/2022 documented in [facility] encounterBON [facility] [employer] Phone: 1(392) 697-671907-25-2022 History of Present illness Narrative* Candida Camacho Aime - 01/31/2022 1:00 PM EDT Images [...] 3: Pt to become independent with HEP. Fdc Goals Time Frame for retirement goals : 12 retirement goal 1: Pt to increase R knee flexion MMT to 4+/5 to help with amb and stairs. 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 retirement goal 3: Pt to be able to amb on unlevel surface without an AD and no deviations for 150ft. Post Treatment Pain: 09/16 Time In:1255 Time Out : 1340 Timed Code Treatment Minutes: 45 Minutes Minutes Candida Salomon ,REGISTERED REPRESENTATIVE Date: 01/31/2022 documented in this encounterBON [employer] Phone: 1(534) 490-446506-27-2022 Evaluation + Plan noteExtracted from: Title:Op Note skeleton Author:Joan Warner DO Date:01/03/22 Impression and Plan Diagnosis Pre-op dx-rt knee oa/pain Post-op dx-same Procedure-rt tka Anesthesia-gen block EBL-0 TT-see nn To Recovery Room in stable and satisfactory condition.. Extracted from: Title:Anesthesia Pre-Op GA/block Author:Wali Garg Date:01/03/22 Plan [employer]esthesiologists (ASA) physical status classification: [...] Appointments Appointment Date:01/17/2022 11:40:00 AM Scheduled Provider: Location:[facility] Appointment Type: Nurse Visit Appointment Date:01/18/2022 11:00:00 AM Scheduled Provider:Audelia VEGA CNP [facility] Type:Cardiology Follow Up (FT) Future Scheduled Tests Laboratory* BUN 01/04/22 * Creatinine 01/04/22 * Electrolyte Panel 01/04/22 * CBC w/ Auto Diff 01/04/22 Radiology* CV Cardiovascular 12/13/21 [facility] Hospital Discharge instructions Follow Up Care 12/17/2021 10:52:35 With:Sharmin HALL, Marlon Negrete Address: [address] [place] [address]- When:6 months [facility]06-10-2022 Hospital Discharge instructions Patient Education 12/17/2021 10:52:21 CV - Cardiovascular Discharge Instructions (CUSTOM) [place], [place] CARDIOVASCULAR DISCHARGE INSTRUCTIONS Diet: Resume pre-procedure [...] you are interested in smoking cessation, contact [facility] at [phone], ext. [phone]. In the event you are unable to reach your physician, please call [facility] at [phone] and the dry ice machine operator will assist you. Seek Immediate Medical Care for: Bleeding: Apply continuous pressure to the site and Call 911. Should the arm or leg become cold, numb, blue or white call your physician immediately. Signs of infection are redness, warmth, swelling, increased tenderness, colored drainage, fever or chills Chest pain Follow Up Care 12/13/2021 12:37:10 With:Marlon Finney Address: [address] [place] [address] [place] [phone] Business (1) When:01/18/2022 11:00:00 Comments:Keep scheduled appointment [facility]06-06[facility]2022 Hospital Discharge instructions Patient Education 12/13/2021 [...] including vitamins, herbs, eye drops, creams, and ntty-pgc-hllwirv medicines. Any problems you or family members [...] 12/31/2003 Document Revised: 06/08/2018 Document Reviewed: 04/07/2017 [employer] Patient Education 2019 [employer]. Follow Up Care 11/24/2021 09:56:15 With:Sharmin HALL, Marlon Negrete Address: [address] [place], [place] [address] [address]- When: Unknown [facility]06-02-2022 Evaluation + Plan note Future Appointments Appointment Date:12/17/2021 10:00:00 AM Scheduled Provider: Location:[facility] Appointment Type:CV Heart Cath (FT) Appointment Date:12/27/2021 02:00:00 PM Scheduled Provider: Location:[facility] Appointment Type: Nurse Visit Appointment Date:01/03/2022 10:00:00 AM Scheduled Provider: Location:[facility] Appointment Type:Surgery FT Future Scheduled Tests Radiology* CV Cardiovascular 12/13/21 * CV Cardiovascular 12/17/21 [facility]22 Hospital Discharge instructions Patient Education 10/25/2021 [...] check for related conditions, such as: ?Asthma. ?[place] eye. ?Ear infection. ?Upper respiratory infection. Tests [...] before sitting on furniture or bedding. Take zpwr-bwx-rzmwfsb and prescription medicines only as told by [...] 03/21/2002 Document Revised: 06/08/2018 Document Reviewed: 08/03/2017 [employer] Patient Education 2020 [employer]. Follow Up Care 10/25/2021 10:35:28 With:RITU HALL FAAFP, LALA Rob Address: When: Unknown Comments:return as otherwise scheduled [facility] [place] 06-02-2020 Evaluation + Plan note Future Appointments Appointment Date:12/03/2021 03:00:00 PM Scheduled Provider: Location:[facility] Appointment Type:CV Echo (FT) Appointment Date:12/09/2021 08:00:00 AM Scheduled Provider: Location:[facility] Appointment Type:NM Myocard Spect Multi Rest/Stress-Res Appointment Date:12/09/2021 09:00:00 AM Scheduled Provider: Location:[facility] Appointment Type:NM Myocard Spect Multi Rest/Stress - R Appointment Date:12/09/2021 09:30:00 AM Scheduled Provider: Location:[facility] Appointment Type:NM Myocard Spect Multi Rest/Stress-Str Appointment Date:12/09/2021 10:30:00 AM Scheduled Provider: [facility] Appoint[facility] Type:NM Myocar Spect Multi Rest/Stress - St Appointment Date:12/13/2021 09:30:00 AM Scheduled Provider:Audelia VEGA CNP [facility] Type:Cardiology Follow Up (FT) Appointment Date:12/13/2021 02:00:00 PM Scheduled [facility] Nurse Visit Appointment Date:01/03/2022 10:00:00 AM Scheduled Provider: Location:[facility] Appointment Type:Surgery FT Future Scheduled Tests Radiology* NM Myocardial Spect Rest/Stress 1 Day 12/09/21 * Echo Transthoracic Complete 12/03/21 [facility] evaluation + Plan note Future Appointments Appointment Date:10/18/2021 09:40:00 AM Scheduled Provider: Location:[facility] Appointment Type:FM Nurse Visit [facility] Evaluation + Plan note Future Appointments Appointment Date:11/01/2021 09:40:00 AM Scheduled Provider[facility] Type:FM Nurse Visit [facility] evaluation + Plan note Future Appointments Appointment Date:11/01/2021 09:40:00 AM Scheduled Provider: Location:[facility] [place] Appointment Type:FM Nurse Visit Appointment Date:11/10/2021 08:30:00 AM Scheduled Provider: Location:[facility] Appointment Type:Surgical PAT FT Appointment Date:11/29/2021 10:50:00 AM Scheduled Provider: Location:[facility] Appointment Type:Surgery FT [facility] Evaluation + Plan note Future Appointments Appointment Date:11/10/2021 08:30:00 AM Scheduled Provider: Location:[facility] Appointment Type:Surgical PAT FT Appointment Date:11/15/2021 09:40:00 AM Scheduled Provider[facility] Type:FM Nurse Visit Appointment Date:11/26/2021 09:40:00 AM Scheduled Provider[facility] Type:FM Nurse Visit Appointment Date:11/29/2021 10:50:00 AM Scheduled Provider: Location:[facility] Appointment Type:Surgery [facility] Evaluation + Plan note Future Appointments Appointment Date:11/15/2021 09:40:00 AM Scheduled Provider[facility] Type:FM Nurse Visit Appointment Date:11/26/2021 09:40:00 AM Scheduled Provider[facility] Type:FM Nurse Visit Appointment Date:11/29/2021 10:00:00 AM Scheduled Provider: Location:[facility] Appointment Date:11/26/2021 09:40:00 AM Scheduled Provider[facility] Type:FM Nurse Visit Appointment Date:11/29/2021 10:00:00 AM Scheduled Provider: Location:[facility] Appointment Type:Surgery [facility] Evaluation + Plan note Future Appointments Appointment Date:11/26/2021 09:40:00 AM Scheduled Provider: Location:[facility] Appointment Type:FM Nurse Visit Appointment Date:11/29/2021 10:00:00 AM Scheduled Provider: Location:[facility] Appointment Type:Surgery FT Future Scheduled Tests Radiology* NM Myocardial Spect Rest/Stress 1 Day 11/19/21 * Echo Tran[facility]horacic [facility] Appointment Date:12/13/2021 09:30:00 AM Scheduled Provider:Audelia VEGA CNP [facility] Type:Cardiology Follow Up (FT) Appointment Date:12/13/2021 02:00:00 PM Scheduled Provider: [facility] Type:FM Nurse Visit Appointment Date:01/03/2022 10:00:00 AM Scheduled Provider: Location:[facility] App[facility]ments Appointment Date:12/27/2021 02:00:00 PM Scheduled Provider: Location:[facility] [place] Appointment Type:FM Nurse Visit Appointment Date:01/03/2022 10:00:00 AM Scheduled Provider: Location:[facility] Appointment Type:Surgery FT Appointment Date:01/18/2022 11:00:00 AM Scheduled Provider:Audelia VEGA CNP [facility] Type:Cardiology Follow Up (FT) Future Scheduled Tests Radiology* CV [facility] Appointment Date:01/03/2022 10:00:00 AM Scheduled Provider: Location:[facility] Appointment Type:Surgery FT Appointment Date:01/17/2022 11:40:00 AM Scheduled Provider: Location:[facility] Appointment Type:FM Nurse Visit Appointment Date:01/18/2022 11:00:00 AM Scheduled Provider:Audelia VEGA CNP [facility] Type:Cardiology Follow Up (FT) Future Scheduled Tests Radiology* CV Cardiovascular 12/13/21 [facility] [place] Evaluation + Plan note Future Appointments Appointment Date:01/31/2022 11:40:00 AM Scheduled Provider: Location:[facility] [place] Appointment Type:FM Nurse Visit Appointment Date:07/21/2022 01:15:00 PM Scheduled Provider:Marlon Finney MD [facility] Type:Cardiology Follow Up (FT) Future Scheduled Tests Laboratory* BUN 01/04/22 * Creatinine 01/04/22 * Electrolyte Panel 01/04/22 * CBC w/ Auto Diff 01/04/22 Radiology* CV Cardi[facility]ments Appointment Date:02/28/2022 10:20:00 AM Scheduled Provider: Location:[facility] [place] Appointment Type:FM Nurse Visit Appointment Date:07/21/2022 01:15:00 PM Scheduled Provider:Marlon Finney MD [facility] Type:Cardiology Follow Up (FT) Future Scheduled Tests Laboratory* BUN 01/04/22 * Creatinine 01/04/22 * Electrolyte Panel 01/04/22 * CBC w/ Auto Diff 01/04/22 Radiology* CV Cardiovascular 12/13/21 [facility] evaluation + Plan note Future Appointments Appointment Date:03/15/2022 10:00:00 AM Scheduled Provider: Location:[facility] Appointment Type: Nurse Visit Appointment Date:07/21/2022 01:15:00 PM Scheduled Provider:Marlon Finney MD [facility] Type:Cardiology Follow Up (FT) Future Scheduled Tests Laboratory* BUN 01/04/22 * Creatinine 01/04/22 * Electrolyte Panel 01/04/22 * CBC w/ Auto Diff 01/04/22 Radiology* CV Cardiovascular 12/13/21 [facility] Evaluation + Plan note Future Appointments Appointment Date:03/28/2022 10:20:00 AM Scheduled Provider: Location:[facility] Appointment Type: Nurse Visit Appointment Date:07/21/2022 01:15:00 PM Scheduled Provider:Marlon Finney MD [facility] Type:Cardiology Follow Up (FT) Future Scheduled Tests Laboratory* BUN 01/04/22 * Creatinine 01/04/22 * Electrolyte Panel 01/04/22 * CBC w/ Auto Diff 01/04/22 Radiology* CV Cardiovascular 12/13/21 [facility] Evaluation + Plan note Future Appointments Appointment Date:04/11/2022 10:20:00 AM Scheduled Provider: Location:[facility] Appointment Type: Nurse Visit Appointment Date:07/21/2022 01:15:00 PM Scheduled Provider:Marlon Finney MD [facility] Type:Cardiology Follow Up (FT) Future Scheduled Tests Laboratory* BUN 01/04/22 * Creatinine 01/04/22 * Electrolyte Panel 01/04/22 * CBC w/ Auto Diff 01/04/22 Radiology* CV Cardiovascular 12/13/21 [facility] Evaluation + Plan note Future Appointments Appointment Date:04/25/2022 10:20:00 AM Scheduled Provider: Location:[facility] Appointment Type: Nurse Visit Appointment Date:07/21/2022 01:15:00 PM Scheduled Provider:Marlon Finney MD [facility] Type:Cardiology Follow Up (FT) Future Scheduled Tests Laboratory* BUN 01/04/22 * Creatinine 01/04/22 * Electrolyte Panel 01/04/22 * CBC w/ Auto Diff 01/04/22 Radiology* CV Cardiovascular 12/13/21 [facility] Evaluation + Plan note Future Appointments Appointment Date:05/10/2022 08:00:00 AM Scheduled [facility] Type: Medicare Wellness Subsequent Appointment Date:05/23/2022 10:00:00 AM Scheduled Provider: Location:[facility] Appointment Type: Nurse Visit Appointment Date:07/21/2022 01:15:00 PM Scheduled Provider:Marlon Finney MD [facility] Type:Cardiology Follow Up (FT) Future Scheduled Tests Laboratory* BUN 01/04/22 * Creatinine 01/04/22 * Electrolyte Panel 01/04/22 * CBC w/ Auto Diff 01/04/22 Radiology* CV Cardiovascular 12/13/21 [facility] Evaluation + Plan note Future Appointments Appointment Date:05/23/2022 10:00:00 AM Scheduled Provider: [facility] Type: Nurse Visit Appointment Date:07/21/2022 01:15:00 PM Scheduled Provider:Marlon Finney MD [facility] Type:Cardiology Follow Up (FT) Appointment Date:05/10/2023 08:00:00 AM Scheduled Provider: Location:[facility] Appointment Type: Medicare Wellness Subsequent Future Scheduled Tests Laboratory* BUN 01/04/22 * Creatinine 01/04/22 * Electrolyte Panel 01/04/22 * CBC w/ Auto Diff 01/04/22 Radiology* CV Cardiovascular 12/13/21 [facility] Evaluation + Plan note Future Appointments Appointment Date:06/06/2022 10:40:00 AM Scheduled Provider: [facility] Type:FM Nurse Visit Appointment Date:07/21/2022 01:15:00 PM Scheduled Provider:Marlon Finney MD [facility] Type:Cardiology Follow Up (FT) Appointment Date:05/10/2023 08:00:00 AM Scheduled Provider: [facility] Type: Medicare Wellness Subsequent Future Scheduled Tests Laboratory* BUN 01/04/22 * Creatinine 01/04/22 * Electrolyte Panel 01/04/22 * CBC w/ Auto Diff 01/04/22 Radiology* CV Cardiovascular 12/13/21 [facility] Evaluation + Plan note Future Appointments Appointment Date:06/27/2022 02:20:00 PM Scheduled Provider:Nayan Cherry MD Location:[facility] Appointment Type:[place] [address] Appointment Date:07/05/2022 10:40:00 AM Scheduled Provider: [facility] Type: Nurse Visit Appointment Date:05/10/2023 08:00:00 AM Scheduled Provider: [facility] Type: Medicare Wellness Subsequent Future Scheduled Tests Laboratory* BUN 01/04/22 * Creatinine 01/04/22 * Electrolyte Panel 01/04/22 * CBC w/ Auto Diff 01/04/22 Radiology* CV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 End Date Esperanza Chaney MD [address] [place] [id number] PCP - General Family Medicine 01/03/23 [facility] Nurse Relationship Specialty Start Date End Date Esperanza Chaney MD [address] [place] [id number] PCP - General Family Medicine 01/03/23 [facility] Nurse Relationship Specialty Start Date End Date Esperanza Chaney MD [address] [place], [place] [id number] PCP - General Family Medicine 01/03/23 Cvor Nurse Relationship Specialty Start Date End Date Esperanza Chaney MD [address] [place] [id number] PCP - General Family Medicine 01/03/23 Cvor Nurse Relationship Specialty Start Date End Date Guerita Knapp PA-C [address] [place] [phone] Referring Physician Steel Tester 03/14/24 Source Comments (unrecognize d section and content) In the event this informatio n is protected by the Federal Confidentiality of Alcohol and Drug Abuse Patient Records regulations: The Federal rules restrict any use of the information to criminally investigate or prosecute any alcohol or drug abuse patient.[facility] FOR RECORDS PERTAINING TO PATIENTS WHO ARE [...] BE BASED ON THE PRIMARY CLINICAL RECORDS. [facility] [employer] [facility]. provides no warranty or guarantee of the accuracy or completeness of information in this document.
--- NOTE | 2024-04-15 16:13 | W.VEIN ---
Discharge Plan Discharge Disposition: Home, Self-Care Outpatient Diagnostics: VC Endovenous Ablation 1VeinRT (Routine) Timeframe: 3 Months Facility: [facility] - Location: Vein Center Ordered By: Chase Hurley Plan of Treatment: EVLT of right SSV EVLT Tumescent Anesthesia: 500 mL 0.9% NS with 20 mL 1% Lidocaine and 10 mL 8.4% NAHCO3 Buffered Local Anesthesia: 10 mL of 1% Lidocaine Buffered Print Language: Angolan Discharge Date/Time: 04/15/24 16:16
== END 2024-04-15 16:16 | disposition home or self-care (01) ==
PROVIDERS: PCP Radiology Diagnostic Radiology; Visit Provider Radiology Diagnostic Radiology
DX: I80.02 Phlebitis and thrombophlebitis of superficial vessels of left lower extremity (principal)
CPT/HCPCS: 93971; G0463

== ENCOUNTER 2024-06-05 09:55 | Outpatient (OUT) | payer MEDICARE, OTHER, SELFPAY ==
--- NOTE | 2024-06-04 09:15 | VEINCLINIC_ITS ---
Vital Signs 06/05/24 10:05 BP 142/76 H BP Location Right Brachial BP Position Sitting BP Cuff Size Adult BP Source Manual Cuff Respiration 20 Pulse 84 Pulse Source Monitor Pulse Oximetry (%) 98 Oxygen Delivery Method Room Air Comment The patient's blood pressure is elevated. Varicose Veins Patient in today for EVLT of right SSV Kwasi Mabry MD personally performed the services described in this documentation, as scribed by Ramon Atkinson RN in my presence and it is both accurate and complete. IRamon RN, am scribing for, and in the presence of, Dr. Kwasi Ruiz and in the presence of the patient. medial thigh: bilateral, knee: bilateral, calf: bilateral, ankle: bilateral and wahl: bilateral cramping, sharp and intermittent 5 20 years Worsened in recent months: Yes standing and sitting analgesics (ibuprofen and tylenol), bed rest, elevating extremities, compression stockings and exercise Reports leg edema and other (bulging veins, discolored veins, and dilated veins) History of lower extremity trauma: No Superficial thrombophlebitis: No Family history of varicose veins: yes Has patient had previous lower extremity venous surgery: No Patient has previously received the following treatment(s) for lower extremity varicose veins: Reports none Does patient have a history of : yes Does patient intend to have future pregnancies: no Has patient had lower extremity venous scan with relux testing: Yes Support hose used: Yes Problems walking or doing physical activity: Yes How does it affect you: Affects patients sleep and is not sleeping well Do you walk much: Yes Do you stand much: Yes Medication compliance: good Review of Systems ROS Narrative Kwasi Mabry MD personally performed the services described in this documentation, as scribed by Ramon Atkinson RN in my presence and it is both accurate and complete. Ramon Mabry RN, am scribing for, and in the presence of, Dr. Kwasi Ruiz and in the presence of the patient. Status of ROS 10 or more systems reviewed and unremark able except as noted in history and below Cardiovascular Reports: edema, swelling of feet/ankles and leg pain with exertion Musculoskeletal Reports: extremity pain, extremity swelling, limited range of motion, joint swelling, muscle cramps and muscle weakness Integumentary/Breast Reports: skin pain, skin tenderness, skin swelling and changes in skin color Neurological Reports: numbness in extremities and weakness in extremities PFSH [facility] Medical History (Updated 03/15/24 @ 13:11 by Ramon Atkinson) Phlebitis and thrombophlebitis of superficial vessels of left lower extremity ?I80.02 - Phlebitis and thrombophlebitis of superficial vessels of left lower extremity (ICD-10) Pain due to varicose veins of both lower extremities ?I83.813 - Varicose veins of bilateral lower extremities with pain (ICD-10) Obesity ?E66.9 - Obesity, unspecified (ICD-10) Surgical History (Updated 06/05/24 @ 10:19 by Ramon Atkinson) Status post laser ablation of incompetent vein ?Z98.890 - Other specified postprocedural states (ICD-10) S/P sclerotherapy of varicose veins ?Z98.890 - Other specified postprocedural states (ICD-10) ?Z86.79 - Personal history of other diseases of the circulatory system (ICD- 10) Status post laser ablation of incompetent vein ?Z98.890 - Other specified postprocedural states (ICD-10) History of bunionectomy ?Z98.890 - Other specified postprocedural states (ICD-10) History of breast biopsy ?Z98.890 - Other specified postprocedural states (ICD-10) History of knee replacement procedure of right knee ?Z96.651 - Presence of right artificial knee joint (ICD-10) Family History (Updated 01/10/24 @ 09:52 by Noemí Castillo) Father Family history of CHF (congestive heart failure) Family history of diabetes mellitus Mother Varicose veins of bilateral lower extremities with pain Social History (Updated 01/10/24 @ 09:52 by Noemí Castillo) Within the past year, how often did you have a drink containing alcohol: 2-4 times a month Smoking status: Never smoker Non-prescribed substance use: denies use Meds Home Medications and Allergies Home Medications ?Medication ?Instructions ?Recorded ?Confirmed ?Type albuterol sulfate 2.5 mg/3 mL 1.25 mg inhalation TID 01/10/24 01/10/24 History (0.083 %) solution for nebulization cetirizine 10 mg tablet (24Hour 5 mg PO DAILY PRN allergy symptoms 01/10/24 01/10/24 History Allergy) clindamycin HCl 300 mg capsule 300 mg PO BID 01/10/24 01/10/24 History (Cleocin HCl) cyanocobalamin (vitamin B-12) 100 100 mcg PO DAILY 01/10/24 01/10/24 History mcg tablet (Vitamin B-12) escitalopram oxalate 20 mg tablet 20 mg PO DAILY 01/10/24 01/10/24 History (Lexapro) hydroxyzine pamoate 25 mg capsule 25 mg PO BID 01/10/24 01/10/24 History (Vistaril) montelukast 10 mg tablet 10 mg PO DAILY 01/10/24 01/10/24 History Allergies Allergy/AdvReac Type Severity Reaction Status Date / Time amoxicillin Allergy Mild Rash Unverified 01/10/24 10:00 naproxen Allergy Unknown Unverified 01/10/24 10:00 codeine AdvReac Mild Nausea Unverified 02/15/24 15:47 Exam Narrative Exam Narrative: Kwasi Mabry MD personally performed the services described in this documentation, as scribed by Ramon Atkinson RN in my presence and it is both accurate and complete. Ramon Mabry RN, am scribing for, and in the presence of, Dr. Kwasi Ruiz and in the presence of the patient. Constitutional Documenting provider has reviewed patient's vital signs: yes Common normals: oriented x3 Lymph Lymphatic: no lymphedema noted Cardio Common normals: regular rate Rate: regular rate Peripheral pulses: posterior tibial pulses present and dorsalis pedis pulses present Extremity Common normals: normal capillary refill General: calf tenderness and edema Right lower extremity: upper leg and lower leg Left lower extremity: upper leg and lower leg Neuro Common normals: oriented x3 Assessment and Plan Assessment and Plan (1) Pain due to varicose veins of both lower extremities: Plan f/u examination with physician along with right leg limited u/s Kwasi Mabry MD personally performed the services described in this documentation, as scribed by Ramon Atkinson RN in my presence and it is both accurate and complete. Ramon Mabry RN, am scribing for, and in the presence of, Dr. Kwasi Ruiz and in the presence of the patient. Procedures Procedure Instructions Procedures Plan of care: Risks and benefits of the procedure were discussed at length and informed written consent was obtained.? Time-out completed for verification of correct patient, procedure and site.? Staff present during time-out: Ramon Atkinson RN,? Chase Hurley MD, Noemí Castillo RDDE,RVT. Time Out Time__102 Patient prepped and procedure performed in usual sterile fashion. Risk of injury related to use of Diode laser and/or laser devices? __CR___ ? Serial number of laser used :? [id number] Control panel self test performed, electrical cords in good condition, floor is dry, basin of water available, fire extinguisher in close proximity_CR__ Polycarbonate goggles available and Laser warning signs outside of doors___CR__ Eye protection provided to patient and staff in room_CR___ Use of laser retardant drapes and dull blackened instruments as directed__CR___ Use of nonflammable prep solutions and use of saline soaked sponges to protect tissues as indicated _CR___ Length ___30 cm Laser operated by __Dr. Ruiz Physician verbal confirmation laser locked in place__CR__ Laser start time (date and time) _06/05/2024@_1030 Laser stop time(date and time) __06/05/2024@__1034 [place]ro _8.0___ Average laser use ____1392___Joules Average laser use___174 seconds Pulse continuous ___CR_? Pulse intermittent ___ Amount of Tumescent used __175cc____ Evaluated patient for signs and symptoms of electrical injury __CR___ ? Skin clear at insertion site __CR___ Patient tolerated procedure well.? Right leg Coban dressing applied to access site.? Applied right thigh high leg compression stocking. Will return on 06/14/2024 for right leg limited venous ultrasound and exam. IKwasi MD personally performed the services described in this documentation, as scribed by Ramon Atkinson RN in my presence and it is both accurate and complete. I, Ramon Atkinson RN, am scribing for, and in the presence of, Dr. Kwasi Ruiz and in the presence of the patient.
--- NOTE | 2024-06-04 09:18 | P.DS_ITS ---
Discharge Plan Discharge Disposition: Home, Self-Care Outpatient Diagnostics: VC Facility EST Minimal (Routine) Timeframe: 2 Weeks Facility: [facility] - Location: Vein Center Ordered By: Kwasi Ruiz VC EXT Venous RT LMTD (Routine) Timeframe: 2 Weeks Facility: [facility] - Location: Vein Center Ordered By: Kwasi Ruiz Follow Up Appointments: 06/14/2024 Plan of Treatment: f/u examination with physician along with right leg limited u/s Patient Instructions: Endovenous Ablation (DC) Print Language: Portuguese Discharge Date/Time: 06/05/24 10:24
--- NOTE | 2024-06-05 09:58 | VEIN_ITS ---
The [address] [address] Patient Name: JOSIAH ALONZO MRN: [id number] date: 1955 Sex: F Assigned Patient Location: Current Patient Location: Accession/Order Number: [id number] Exam Date: 06/05/2024 10:01 Report Date: 06/05/2024 11:10 At the request of: DIAZ NORRIS Procedure: VC Endovenous Ablation 1VeinRT EXAMINATION: VC Endovenous Ablation 1VeinRT HISTORY: I83.813 Bilateral painful varicose veins The risks and benefits of the procedure had been previously discussed, and were rediscussed at length. Informed written consent was obtained. Ramon Atkinson RN and Valeria Castaneda RDMS assisted. Time out procedure was performed. The right lower extremity was prepared and draped in the usual sterile fashion to allow knee flexion in the sterile field. Duplex ultrasound probe was draped in a sterile cover, sterile transmission gel was used. Venous mapping was performed with the areas of dilation and large tributaries marked. The total length was 30 cm from the entry 3 cm above the ankle to 1 cm proximal to the deep muscle insertion (thigh extension). The diameter of the right small saphenous vein ranged from 6.6 mm. A 30 gauge needle and 1% buffered lidocaine was used to anesthetize the entry site. A 4 mm incision was made with a scalpel and the saphenous vein was entered percutaneously under direct ultrasound guidance with a micropuncture set, a single stick was successful in gaining access. A micro-guide wire was inserted and the needle removed. A micro-set including a dilator was inserted over the microwire and the needle and dilator were removed. A guide wire was inserted through the micro-set and guided through the saphenous vein to the saphenofemoral junction. The dilator was removed and an introducer sheath was inserted over the wire until the end of the sheath entered the saphenofemoral junction. The dilator and wire were removed and the 600 micron fiber was introduced and placed and positioned so that it extended beyond the sheath and was 3 cm distal to the saphenofemoral or saphenopopliteal junction. Final position of the fiber was determined by ultrasound guidance and duplex imaging. Tumescent anesthetic was delivered by ultrasound guidance. 175 cc of fluid was delivered along the entire course of the saphenous vein. The solution consisted of 1000 cc of normal saline with 40 mL of 1% lidocaine and 20 mL of sodium bicarbonate. A final positioning check was made. The energy source was turned on by means of the foot pedal and the fiber and sheath were withdrawn. The total number of Joules delivered was 1392. The laser was active for 174 seconds under continuous pulse, average laser use of 8 J. Laser start time: 10:30 AM Laser stop time: 10:34 AM Date: 06/05/2024. A duplex ultrasound revealed compressibility and flow at the saphenofemoral junction immediately after the procedure. Hemostasis at the access site was achieved. The skin incision of the saphenous vein was closed with a 4 x 4. A compression stocking was applied. Postop instructions were given. A follow up appointment was recommended and scheduled. The patient tolerated the procedure well. Electronically authenticated by: ABBY RODRIGUEZ Date: 06/05/2024 11:10
[2024-06-05 10:05] VITALS: BP 142/76; PULSE 84; O2SAT 98
[2024-06-05] MEDS: 0.9 % SODIUM CHLORIDE 500 ML, LIDOCAINE HCL 20 ML, SODIUM BICARBONATE 10 MEQ INJ (10:20)
[2024-06-05] MEDS: LIDOCAINE HCL 1% 100 MG/10 ML MDV INJ (10:20)
== END 2024-06-05 10:24 | disposition home or self-care (01) ==
LOC: VC 09:56
PROVIDERS: PCP Radiology Diagnostic Radiology; Visit Provider Radiology Diagnostic Radiology
DX: I83.813 Varicose veins of bilateral lower extremities with pain (principal)
CPT/HCPCS: 36478

== ENCOUNTER 2024-06-14 10:08 | Outpatient (OUT) | payer MEDICARE, OTHER, SELFPAY ==
[2024-06-14 07:37] VITALS: BMI 37.1
--- NOTE | 2024-06-14 07:37 | VEINCLINIC_ITS ---
Vital Signs 06/14/24 07:37 Height 5 ft 4 in Weight 98 kg BMI 37.1 Varicose Veins Patient in today for follow up ultrasound of right lower extremity following EVLT of right GSV completed on 06/05/24. Kwasi Mabry MD personally performed the services described in this documentation, as scribed by Valeria Hutton RDMS in my presence and it is both accurate and complete. Valeria Mabry RDMS, am scribing for, and in the presence of, Dr. Yosvany Ruiz and in the presence of the patient. medial thigh: bilateral, knee: bilateral, calf: bilateral, ankle: bilateral and wahl: bilateral cramping, sharp and intermittent 5 20 years Worsened in recent months: Yes standing and sitting analgesics (ibuprofen and tylenol), bed rest, elevating extremities, compression stockings and exercise Reports leg edema and other (bulging veins, discolored veins, and dilated veins) History of lower extremity trauma: No Superficial thrombophlebitis: No Family history of varicose veins: yes Has patient had previous lower extremity venous surgery: No Patient has previously received the following treatment(s) for lower extremity varicose veins: Reports none Does patient have a history of : yes Does patient intend to have future pregnancies: no Has patient had lower extremity venous scan with relux testing: Yes Support hose used: Yes Problems walking or doing physical activity: Yes How does it affect you: Affects patients sleep and is not sleeping well Do you walk much: Yes Do you stand much: Yes Medication compliance: good Review of Systems ROS Narrative Kwasi Mabry MD personally performed the services described in this documentation, as scribed by Valeria Hutton RDMS in my presence and it is both accurate and complete. Valeria Mabry RDMS, am scribing for, and in the presence of, Dr. Yosvany Ruiz and in the presence of the patient. Status of ROS 10 or more systems reviewed and unremark able except as noted in history and below Cardiovascular Reports: edema, swelling of feet/ankles and leg pain with exertion Musculoskeletal Reports: extremity pain, extremity swelling, limited range of motion, joint swelling, muscle cramps and muscle weakness Integumentary/Breast Reports: skin pain, skin tenderness, skin swelling and changes in skin color Neurological Reports: numbness in extremities and weakness in extremities PFSH ON LICENSE OF [facility] Medical History (Updated 03/15/24 @ 13:11 by Ramon Atkinson) Phlebitis and thrombophlebitis of superficial vessels of left lower extremity ?I80.02 - Phlebitis and thrombophlebitis of superficial vessels of left lower extremity (ICD-10) Pain due to varicose veins of both lower extremities ?I83.813 - Varicose veins of bilateral lower extremities with pain (ICD-10) Obesity ?E66.9 - Obesity, unspecified (ICD-10) Surgical History (Updated 06/05/24 @ 10:19 by Ramon Atkinson) Status post laser ablation of incompetent vein ?Z98.890 - Other specified postprocedural states (ICD-10) S/P sclerotherapy of varicose veins ?Z98.890 - Other specified postprocedural states (ICD-10) ?Z86.79 - Personal history of other diseases of the circulatory system (ICD- 10) Status post laser ablation of incompetent vein ?Z98.890 - Other specified postprocedural states (ICD-10) History of bunionectomy ?Z98.890 - Other specified postprocedural states (ICD-10) History of breast biopsy ?Z98.890 - Other specified postprocedural states (ICD-10) History of knee replacement procedure of right knee ?Z96.651 - Presence of right artificial knee joint (ICD-10) Family History (Updated 01/10/24 @ 09:52 by Noemí Castillo) Father Family history of CHF (congestive heart failure) Family history of diabetes mellitus Mother Varicose veins of bilateral lower extremities with pain Social History (Updated 01/10/24 @ 09:52 by Noemí Castillo) Within the past year, how often did you have a drink containing alcohol: 2-4 times a month Smoking status: Never smoker Non-prescribed substance use: denies use Meds Home Medications and Allergies Home Medications ?Medication ?Instructions ?Recorded ?Confirmed ?Type albuterol sulfate 2.5 mg/3 mL 1.25 mg inhalation TID 01/10/24 01/10/24 History (0.083 %) solution for nebulization cetirizine 10 mg tablet (24Hour 5 mg PO DAILY PRN allergy symptoms 01/10/24 01/10/24 History Allergy) clindamycin HCl 300 mg capsule 300 mg PO BID 01/10/24 01/10/24 History (Cleocin HCl) cyanocobalamin (vitamin B-12) 100 100 mcg PO DAILY 01/10/24 01/10/24 History mcg tablet (Vitamin B-12) escitalopram oxalate 20 mg tablet 20 mg PO DAILY 01/10/24 01/10/24 History (Lexapro) hydroxyzine pamoate 25 mg capsule 25 mg PO BID 01/10/24 01/10/24 History (Vistaril) montelukast 10 mg tablet 10 mg PO DAILY 01/10/24 01/10/24 History Allergies Allergy/AdvReac Type Severity Reaction Status Date / Time amoxicillin Allergy Mild Rash Unverified 01/10/24 10:00 naproxen Allergy Unknown Unverified 01/10/24 10:00 codeine AdvReac Mild Nausea Unverified 02/15/24 15:47 Exam Narrative Exam Narrative: Kwasi Mabry MD personally performed the services described in this documentation, as scribed by Valeria Hutton RDMS in my presence and it is both accurate and complete. Valeria Mabry RDMS, am scribing for, and in the presence of, Dr. Yosvany Ruiz and in the presence of the patient. Constitutional Documenting provider has reviewed patient's vital signs: yes Common normals: oriented x3 Lymph Lymphatic: no lymphedema noted Cardio Common normals: regular rate Rate: regular rate Peripheral pulses: posterior tibial pulses present and dorsalis pedis pulses present Extremity Common normals: normal capillary refill General: calf tenderness and edema Right lower extremity: upper leg and lower leg Left lower extremity: upper leg and lower leg Neuro Common normals: oriented x3 Results Imaging Venous US: Radiologist's impression: Heat induced thrombus in right SSV from distal thigh extension to distal lower leg. Kwasi Mabry MD personally performed the services described in this documentation, as scribed by Valeria Hutton RDMS in my presence and it is both accurate and complete. Valeria Mabry RDMS, am scribing for, and in the presence of, Dr. Yosvany Ruiz and in the presence of the patient. Assessment and Plan Assessment and Plan (1) Phlebitis and thrombophlebitis of superficial vessels of right lower extremity: Plan Plan is for patient to return for Varithena/microfoam of right leg on 06/21/24. IKwasi MD personally performed the services described in this documentation, as scribed by Valeria Hutton RDMS in my presence and it is both accurate and complete. I, Valeria Hutton RDMS, am scribing for, and in the presence of, Dr. Yosvany Ruiz and in the presence of the patient.
--- NOTE | 2024-06-14 10:08 | VEIN_ITS ---
Patient Name: JOSIAH ALONZO MR#: [id number] : 1955 Exam Date: 06/14/2024 Ordering Doctor: DR ABBY RUIZ M.D. RADIOLOGY REPORT PROCEDURE: VC EXT VENOUS RT LMTD COMPARISON: VC EXT VENOUS RT LMTD, 03/22/2024. INDICATIONS: I80.01 - Phlebitis and thrombophlebitis of superficial vein right leg TECHNIQUE: Lower extremity holcomb scale and Duplex Doppler evaluation of the deep venous system from the inguinal ligament through the calf veins. FINDINGS: REGION: Right lower extremity. THROMBI: Negative for DVT. Heat induced thrombus in right SSV from distal thigh extension to distal lower leg. COMPRESSIBILITY: Non-compressible segments corresponding to thrombus FLOW: Areas of no flow corresponding to thrombus OTHER: Multiple varicose veins remain. Largest is proximal medial lower leg and measures 5.7 mm. CONCLUSION: 1. Successful post ablation occlusion of right small saphenous vein. Dictated by: Abby Ruiz M.D. on 06/14/2024 at 11:53 Approved by: Abby Ruiz M.D. on 06/14/2024 at 11:54
--- NOTE | 2024-06-14 10:08 | VEIN_ITS ---
Patient Name: JOSIAH ALONZO MR#: [id number] : 1955 Exam Date: 06/14/2024 Ordering Doctor: DR ABBY RODRIGUEZ M.D. RADIOLOGY REPORT PROCEDURE: [facility] EST LMTD VEIN CENTER - OFFICE VISIT FOLLOW UP COMPARISON: [facility], 04/15/2024. PROGRESS NOTES: The patient reports improvement in leg symptoms. There has been interval reduction in varicosities. The patient has followed our recommendations to walk 20-30 minutes once or twice per day since the procedure. Physical exam demonstrates decrease in varicosities of the leg. Persistent 5 mm varicosity within right leg are identified during ultrasound evaluation. Review of the ultrasound performed the same day demonstrates occlusive thrombus extending throughout the treated vein(s), see separate report, consistent with a successful ablation. No thrombus extending into or beyond the saphenofemoral junction. The patient expressed a desire to proceed with treatment of remaining incompetent varicosities within right leg. The patient was informed that treatment was a process and would require 1 additional procedures/sessions. [facility]: 1. Successful ablation of the right small saphenous vein(s). 2. Persistent right leg varicose veins and lower extremity symptoms. PLAN: 1. Microfoam chemical ablation of right leg incompetent branch saphenous varicosities. Nurse notes, history and physical were reviewed and confirmed, see attached forms. The nurse was present throughout the physical exam and consultation Dictated by: Abby Rodriguez M.D. on 06/14/2024 at 11:54 Approved by: Abby Rodriguez M.D. on 06/14/2024 at 11:55
--- NOTE | 2024-06-14 10:38 | P.DS_ITS ---
Discharge Plan Discharge Disposition: Home, Self-Care Outpatient Diagnostics: VC INJ Foam Sclerosant KAREN DIETITIAN CONSULTANT (Routine) Timeframe: 3 Weeks Facility: [facility] - Location: Vein Center Ordered By: Kwasi Ruiz Follow Up Appointments: 06/21/24 Plan of Treatment: Varithena/microfoam of right leg Print Language: Estonian Discharge Date/Time: 06/14/24 10:39
== END 2024-06-14 10:39 | disposition home or self-care (01) ==
PROVIDERS: PCP Radiology Diagnostic Radiology; Visit Provider Radiology Diagnostic Radiology
DX: I80.01 Phlebitis and thrombophlebitis of superficial vessels of right lower extremity (principal)
CPT/HCPCS: 93971; G0463

== ENCOUNTER 2024-06-21 09:27 | Outpatient (OUT) | payer MEDICARE, OTHER, SELFPAY ==
--- NOTE | 2024-06-20 11:09 | VEINCLINIC_ITS ---
Vital Signs 06/21/24 10:14 BP 136/65 BP Location Right Brachial BP Position Sitting BP Cuff Size Adult BP Source Manual Cuff Respiration 20 Pulse 73 Pulse Source Monitor Pulse Oximetry (%) 95 Oxygen Delivery Method Room Air Comment The patient's blood pressure is elevated. Varicose Veins Patient in today for microfoam chemical ablation right leg Chase Mabry MD personally performed the services described in this documentation, as scribed by Ramon Atkinson RN in my presence and it is both accurate and complete. IRamon RN, am scribing for, and in the presence of, Dr. Chase Hurley and in the presence of the patient. medial thigh: bilateral, knee: bilateral, calf: bilateral, ankle: bilateral and wahl: bilateral cramping, sharp and intermittent 5 20 years Worsened in recent months: Yes standing and sitting analgesics (ibuprofen and tylenol), bed rest, elevating extremities, compression stockings and exercise Reports leg edema and other (bulging veins, discolored veins, and dilated veins) History of lower extremity trauma: No Superficial thrombophlebitis: No Family history of varicose veins: yes Has patient had previous lower extremity venous surgery: No Patient has previously received the following treatment(s) for lower extremity varicose veins: Reports none Does patient have a history of : yes Does patient intend to have future pregnancies: no Has patient had lower extremity venous scan with relux testing: Yes Support hose used: Yes Problems walking or doing physical activity: Yes How does it affect you: Affects patients sleep and is not sleeping well Do you walk much: Yes Do you stand much: Yes Medication compliance: good Review of Systems ROS Narrative Chase Mabry MD personally performed the services described in this documentation, as scribed by Ramon Atkinson RN in my presence and it is both accurate and complete. Ramon Mabry RN, am scribing for, and in the presence of, Dr. Chase Hurley and in the presence of the patient. Status of ROS 10 or more systems reviewed and unremark able except as noted in history and below Cardiovascular Reports: edema, swelling of feet/ankles and leg pain with exertion Musculoskeletal Reports: extremity pain, extremity swelling, limited range of motion, joint swelling, muscle cramps and muscle weakness Integumentary/Breast Reports: skin pain, skin tenderness, skin swelling and changes in skin color Neurological Reports: numbness in extremities and weakness in extremities PFSH PFSH Medical History (Updated 03/15/24 @ 13:11 by Ramon Atkinson) Phlebitis and thrombophlebitis of superficial vessels of left lower extremity ?I80.02 - Phlebitis and thrombophlebitis of superficial vessels of left lower extremity (ICD-10) Pain due to varicose veins of both lower extremities ?I83.813 - Varicose veins of bilateral lower extremities with pain (ICD-10) Obesity ?E66.9 - Obesity, unspecified (ICD-10) Surgical History (Updated 06/21/24 @ 10:15 by Ramon Atkinson) S/P sclerotherapy of varicose veins ?Z98.890 - Other specified postprocedural states (ICD-10) ?Z86.79 - Personal history of other diseases of the circulatory system (ICD- 10) Status post laser ablation of incompetent vein ?Z98.890 - Other specified postprocedural states (ICD-10) S/P sclerotherapy of varicose veins ?Z98.890 - Other specified postprocedural states (ICD-10) ?Z86.79 - Personal history of other diseases of the circulatory system (ICD- 10) Status post laser ablation of incompetent vein ?Z98.890 - Other specified postprocedural states (ICD-10) History of bunionectomy ?Z98.890 - Other specified postprocedural states (ICD-10) History of breast biopsy ?Z98.890 - Other specified postprocedural states (ICD-10) History of knee replacement procedure of right knee ?Z96.651 - Presence of right artificial knee joint (ICD-10) Family History (Updated 01/10/24 @ 09:52 by Noemí Castillo) Father Family history of CHF (congestive heart failure) Family history of diabetes mellitus Mother Varicose veins of bilateral lower extremities with pain Social History (Updated 01/10/24 @ 09:52 by Noemí Castillo) Within the past year, how often did you have a drink containing alcohol: 2-4 times a month Smoking status: Never smoker Non-prescribed substance use: denies use Meds Home Medications and Allergies Home Medications ?Medication ?Instructions ?Recorded ?Confirmed ?Type albuterol sulfate 2.5 mg/3 mL 1.25 mg inhalation TID 01/10/24 01/10/24 History (0.083 %) solution for nebulization cetirizine 10 mg tablet (24Hour 5 mg PO DAILY PRN allergy symptoms 01/10/24 01/10/24 History Allergy) clindamycin HCl 300 mg capsule 300 mg PO BID 01/10/24 01/10/24 History (Cleocin HCl) cyanocobalamin (vitamin B-12) 100 100 mcg PO DAILY 01/10/24 01/10/24 History mcg tablet (Vitamin B-12) escitalopram oxalate 20 mg tablet 20 mg PO DAILY 01/10/24 01/10/24 History (Lexapro) hydroxyzine pamoate 25 mg capsule 25 mg PO BID 01/10/24 01/10/24 History (Vistaril) montelukast 10 mg tablet 10 mg PO DAILY 01/10/24 01/10/24 History Allergies Allergy/AdvReac Type Severity Reaction Status Date / Time amoxicillin Allergy Mild Rash Unverified 01/10/24 10:00 naproxen Allergy Unknown Unverified 01/10/24 10:00 codeine AdvReac Mild Nausea Unverified 02/15/24 15:47 Exam Narrative Exam Narrative: Chase Mabry MD personally performed the services described in this documentation, as scribed by Ramon Atkinson RN in my presence and it is both accurate and complete. Ramon Mabry RN, am scribing for, and in the presence of, Dr. Chase Hurley and in the presence of the patient. Constitutional Documenting provider has reviewed patient's vital signs: yes Common normals: oriented x3 Lymph Lymphatic: no lymphedema noted Cardio Common normals: regular rate Rate: regular rate Peripheral pulses: posterior tibial pulses present and dorsalis pedis pulses p resent Extremity Common normals: normal capillary refill General: calf tenderness and edema Right lower extremity: upper leg and lower leg Left lower extremity: upper leg and lower leg Neuro Common normals: oriented x3 Assessment and Plan Assessment and Plan (1) Pain due to varicose veins of both lower extremities: Plan f/u examination with physician along with right leg limited u/s Chase Mabry MD personally performed the services described in this documentation, as scribed by Ramon Atkinson RN in my presence and it is both accurate and complete. Ramon Mabry RN, am scribing for, and in the presence of, Dr. Chase Hurley and in the presence of the patient. Procedures Procedure Instructions Procedures leg microfoam chemical ablation/Varithena: Risks and benefits of the procedure were discussed at length and informed written consent was obtained.? Time-out procedure was performed and the correct patient and procedure were confirmed.? Staff present during time-out: Ramon Atkinson RN and Chase Hurley MD.? Patient prepped and procedure performed in usual sterile fashion.? Patient was placed in Trendelenburg prior to Polidocanol/Varithena injections. Sclerosing Agent:?15? cc 1% Polidocanol/Varithena Site Injected: right lecc varithena administered in to a 6mm varicose vein distal medial right lower leg 8cc varithena administered in to a 7mm varicose dee medial distal thigh/knee Number of Injections:? 2 The patient tolerated the procedure well without complication.? Hemostasis was obtained and thigh-high compression stocking was applied with foam pads.? Instructed patient to wear stocking for at least 96 hours and sleep with it and only remove for showering.? The patient was instructed to? wear stocking for 2 weeks.? Patient verbalizes understanding and states they will comply.? Patient was given post-procedure instructions. Patient was discharged in good condition.? Scheduled to undergo limited venous ultrasound and? exam on 06/24/2024 IChase MD personally performed the services described in this documentation, as scribed by Ramon Atkinson RN in my presence and it is both accurate and complete. IRamon RN, am scribing for, and in the presence of, Dr. Chase Hurley and in the presence of the patient.
--- NOTE | 2024-06-20 11:13 | W.VEIN ---
Discharge Plan Discharge Disposition: Home, Self-Care Outpatient Diagnostics: [facility] Facility EST LMTD (Routine) Timeframe: 2 Weeks Facility: [facility] - Location: [facility] Center Ordered By: Chase Hurley VC EXT Venous RT LMTD (Routine) Timeframe: 2 Weeks Facility: [facility] - Location: Vein Center Ordered By: Chase Hurley Follow Up Appointments: 06/24/2024 Plan of Treatment: f/u evaluation with physician along with right leg limited u/s Patient Instructions: Polidocanol (By injection) (Edwardo Osoriotheguy) Print Language: Slovenian Discharge Date/Time: 06/21/24 10:14
--- NOTE | 2024-06-21 09:28 | VEIN_ITS ---
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 HISTORY: I83.813 - Varicose veins of bilateral lower extremities w... Pre-operative Diagnosis: CEAP class C3 venous insufficiency with pain, tenderness, edema and incompetent right saphenous and varicose vein(s), chronic venous insufficiency right leg secondary to venous incompetence Post-operative Diagnosis: CEAP class C3 venous insufficiency with pain, tenderness, edema and incompetent right saphenous and varicose vein(s), chronic venous insufficiency right leg secondary to venous incompetence Procedure Performed: 1. Ultrasound-guided microfoam chemical ablation with Varithenaregistered 2. Intraoperative ultrasound guidance Anesthesia: None Indications for Procedure: 68-year-old female who presents with a long history of lower extremity pain swelling varicose veins. The patient failed conservative medical therapy including medical compression stockings, exercise and analgesics. Prior procedures include endovenous laser ablation and Microfoam chemical ablation. Multiple incompetent varicosities of the right leg. Duplex scan showed reflux and enlarged diameters up to 7 mm. The patient underwent informed consent including management options where the complications of infection, bleeding, pain, and skin injury were discussed. Particular attention was spent discussing thrombus extension and deep vein thrombosis as well as the possibility of pulmonary embolus and treatment with oral or injectable blood thinners. Procedure: The patient walked to the procedure room. All applicable staff donned appropriate apparel. A procedure timeout was performed to confirm correct patient, correct extremity, correct procedure, and correct room set-up including presence of all applicable supplies, devices, and drugs. A duplex ultrasound, performed by myself confirmed the location and incompetence of branch saphenous varicosities and their course was marked on the skin together with the dilated tributaries. The extent of treatment of the vein and the associated varicosities was determined through ultrasound mapping. The skin was prepped and then punctured with a butterfly needle and advanced under ultrasound guidance. The Varithenaregistered canister was activated and the canister was primed and purged as required in the instructions for use. Varithenaregistered was drawn into a sterile syringe. The following injections were made: 7 cc injected into a 6 mm varicose vein distal medial right lower leg 8 cc injected into a 7 mm varicose vein medial distal thigh/knee Varithenaregistered was slowly administered at 0.5-1.0 cc/second with close observation by ultrasound of its course in the vessels. Total volume utilized was: 15cc. Following administration of Varithenaregistered the leg was elevated and the patient was asked to repeatedly dorsiflex the ankle to limit flow of Varithenaregistered into perforating veins. Once appropriate spasm had been confirmed in the treated veins, the vascular catheter was removed from the leg and light pressure was applied over the puncture site for hemostasis. The common femoral and deep superficial veins were then evaluated for flow and compressibility prior to dressing placement. The lower extremity was kept elevated at 45 degrees above the horizontal and cording material was applied over the saphenous segments and tributaries to allow for eccentric compression over the target vessels including the targeted saphenous vein(s). A multilayer dressing was applied consisting of foam pads, coban and thigh-high 20-30 mm Hg compression elastic support hose were placed on the patient. The leg was lowered only after compression had been applied and the patient was immediately ambulatory. The patient ambulated 10 minutes under supervision and was without apparent concerns at time of release. Post-care instructions include advising patient to keep post-treatment bandages in place and dry for 48 hours, avoid extended periods of inactivity, avoid heavy exercise for one week, wear compression stockings on the treated leg continuously for two weeks, to walk daily for 10 minutes over the next month. The patient was instructed to take an anti-inflammatory medicine as needed and to follow up for color duplex scan of the Saphenous veins, the treated branch saphenous varicosities, the adjacent deep veins, and additional treatment within 7 days. PERSONNEL: Ramon Atkinson RN Electronically authenticated by: DIAZ NORRIS Date: 06/21/2024 10:31
[2024-06-21 10:14] VITALS: BP 136/65; PULSE 73; O2SAT 95
== END 2024-06-21 10:14 | disposition home or self-care (01) ==
LOC: VC 09:27
PROVIDERS: PCP Radiology Diagnostic Radiology; Visit Provider Radiology Diagnostic Radiology
DX: I83.813 Varicose veins of bilateral lower extremities with pain (principal)
CPT/HCPCS: 36466

== ENCOUNTER 2024-06-24 09:38 | Outpatient (OUT) | payer MEDICARE, OTHER, SELFPAY ==
[2024-06-24 07:32] VITALS: BMI 37.1
--- NOTE | 2024-06-24 07:32 | VEINCLINIC_ITS ---
Vital Signs 06/24/24 07:32 Height 5 ft 4 in Weight 98 kg BMI 37.1 Varicose Veins Patient in today for follow up ultrasound of right lower extremity following treatment of Varithena/microfoam completed on 06/21/24. Chase Mabry MD personally performed the services described in this documentation, as scribed by Valeria Hutton RDMS in my presence and it is both accurate and complete. Valeria Mabry RDMS, am scribing for, and in the presence of, Dr. Chase Hurley and in the presence of the patient. medial thigh: bilateral, knee: bilateral, calf: bilateral, ankle: bilateral and wahl: bilateral cramping, sharp and intermittent 5 20 years Worsened in recent months: Yes standing and sitting analgesics (ibuprofen and tylenol), bed rest, elevating extremities, compression stockings and exercise Reports leg edema and other (bulging veins, discolored veins, and dilated veins) History of lower extremity trauma: No Superficial thrombophlebitis: No Family history of varicose veins: yes Has patient had previous lower extremity venous surgery: No Patient has previously received the following treatment(s) for lower extremity varicose veins: Reports none Does patient have a history of : yes Does patient intend to have future pregnancies: no Has patient had lower extremity venous scan with relux testing: Yes Support hose used: Yes Problems walking or doing physical activity: Yes How does it affect you: Affects patients sleep and is not sleeping well Do you walk much: Yes Do you stand much: Yes Medication compliance: good Review of Systems ROS Narrative Chase Mabry MD personally performed the services described in this documentation, as scribed by Valeria Hutton RDMS in my presence and it is both accurate and complete. Valeria Mabry RDMS, am scribing for, and in the presence of, Dr. Chase Hurley and in the presence of the patient. Status of ROS 10 or more systems reviewed and unremark able except as noted in history and below Cardiovascular Reports: edema, swelling of feet/ankles and leg pain with exertion Musculoskeletal Reports: extremity pain, extremity swelling, limited range of motion, joint swelling, muscle cramps and muscle weakness Integumentary/Breast Reports: skin pain, skin tenderness, skin swelling and changes in skin color Neurological Reports: numbness in extremities and weakness in extremities [facility] Medical History (Updated 03/15/24 @ 13:11 by Ramon Atkinson) Phlebitis and thrombophlebitis of superficial vessels of left lower extremity ?I80.02 - Phlebitis and thrombophlebitis of superficial vessels of left lower extremity (ICD-10) Pain due to varicose veins of both lower extremities ?I83.813 - Varicose veins of bilateral lower extremities with pain (ICD-10) Obesity ?E66.9 - Obesity, unspecified (ICD-10) Surgical History (Updated 06/21/24 @ 10:15 by Ramon Atkinson) S/P sclerotherapy of varicose veins ?Z98.890 - Other specified postprocedural states (ICD-10) ?Z86.79 - Personal history of other diseases of the circulatory system (ICD- 10) Status post laser ablation of incompetent vein ?Z98.890 - Other specified postprocedural states (ICD-10) S/P sclerotherapy of varicose veins ?Z98.890 - Other specified postprocedural states (ICD-10) ?Z86.79 - Personal history of other diseases of the circulatory system (ICD- 10) Status post laser ablation of incompetent vein ?Z98.890 - Other specified postprocedural states (ICD-10) History of bunionectomy ?Z98.890 - Other specified postprocedural states (ICD-10) History of breast biopsy ?Z98.890 - Other specified postprocedural states (ICD-10) History of knee replacement procedure of right knee ?Z96.651 - Presence of right artificial knee joint (ICD-10) Family History (Updated 01/10/24 @ 09:52 by Noemí Castillo) Father Family history of CHF (congestive heart failure) Family history of diabetes mellitus Mother Varicose veins of bilateral lower extremities with pain Social History (Updated 01/10/24 @ 09:52 by Noemí Castillo) Within the past year, how often did you have a drink containing alcohol: 2-4 times a month Smoking status: Never smoker Non-prescribed substance use: denies use Meds Home Medications and Allergies Home Medications ?Medication ?Instructions ?Recorded ?Confirmed ?Type albuterol sulfate 2.5 mg/3 mL 1.25 mg inhalation TID 01/10/24 01/10/24 History (0.083 %) solution for nebulization cetirizine 10 mg tablet (24Hour 5 mg PO DAILY PRN allergy symptoms 01/10/24 01/10/24 History Allergy) clindamycin HCl 300 mg capsule 300 mg PO BID 01/10/24 01/10/24 History (Cleocin HCl) cyanocobalamin (vitamin B-12) 100 100 mcg PO DAILY 01/10/24 01/10/24 History mcg tablet (Vitamin B-12) escitalopram oxalate 20 mg tablet 20 mg PO DAILY 01/10/24 01/10/24 History (Lexapro) hydroxyzine pamoate 25 mg capsule 25 mg PO BID 01/10/24 01/10/24 History (Vistaril) montelukast 10 mg tablet 10 mg PO DAILY 01/10/24 01/10/24 History Allergies Allergy/AdvReac Type Severity Reaction Status Date / Time amoxicillin Allergy Mild Rash Unverified 01/10/24 10:00 naproxen Allergy Unknown Unverified 01/10/24 10:00 codeine AdvReac Mild Nausea Unverified 02/15/24 15:47 Exam Narrative Exam Narrative: Chase Mabry MD personally performed the services described in this documentation, as scribed by Valeria Hutton RDMS in my presence and it is both accurate and complete. Valeria Mabry RDMS am scribing for, and in the presence of, Dr. Chase Hurley and in the presence of the patient. Constitutional Documenting provider has reviewed patient's vital signs: yes Common normals: oriented x3 Lymph Lymphatic: no lymphedema noted Cardio Common normals: regular rate Rate: regular rate Peripheral pulses: posterior tibial pulses present and dorsalis pedis pulses present Extremity Common normals: normal capillary refill General: calf tenderness and edema Right lower extremity: upper leg and lower leg Left lower extremity: upper leg and lower leg Neuro Common normals: oriented x3 Results Imaging Venous US: Radiologist's impression: Chemically induced thrombus in multiple varicose veins in right leg. Chase Mabry MD personally performed the services described in this documentation, as scribed by Valeria Hutton RDMS in my presence and it is both accurate and complete. Valeria Mabry RDMS am scribing for, and in the presence of, Dr. Chase Hurley and in the presence of the patient. Assessment and Plan Assessment and Plan (1) Phlebitis and thrombophlebitis of superficial vessels of right lower extremity: Plan Patient is finished with treatment at this time. Follow up in 1-2 years or as needed. IChase MD personally performed the services described in this documentation, as scribed by Valeria Hutton RDMS in my presence and it is both accurate and complete. I, Valeria Hutton RDMS, am scribing for, and in the presence of, Dr. Chase Hurley and in the presence of the patient.
--- NOTE | 2024-06-24 09:39 | VEIN_ITS ---
Patient Name: JOSIAH ALONZO MR#: [id number] : 1955 Exam Date: 06/24/2024 Ordering Doctor: DR CHASE NORRIS M.D. RADIOLOGY REPORT PROCEDURE: [facility] EST LMTD [facility] - OFFICE VISIT FOLLOW UP COMPARISON: [facility] EST LMTD, 06/14/2024. [facility] EST LMTD, 04/15/2024. PROGRESS NOTES: The patient reports no significant problems following micro foam chemical ablation of right leg incompetent varicose veins. The patient did wear her compression stocking for 5th or analgesics. Patient complains of continued stiffness and numbness along the distal right foot in the region where she had multiple foot surgeries. Physical exam demonstrates multiple bilateral thrombosed varicose veins. Some mild hemosiderin staining. No residual varicose veins. Some mild spider and reticular veins which the patient does not want treated. Review of the ultrasound performed the same day demonstrates occlusive thrombus extending throughout the treated right leg incompetent varicose veins. No deep vein thrombus. No residual varicose veins observed in the right or the left leg. At this time the patient's treatments are complete. The patient was asked to return in 1-2 years, sooner if any problems occur. VEIN/[facility] EST TD IMPRESSION: 1. Successful ablation of treated right leg incompetent varicose veins 2. Treatment plan is complete. PLAN: Follow-up in 1-2 years or as necessary Nurse notes, history and physical were reviewed and confirmed, see attached forms. The nurse was present throughout the physical exam and consultation Dictated by: Chase Norris MD on 06/24/2024 at 10:14 Approved by: Chase Norris MD on 06/24/2024 at 10:16
--- NOTE | 2024-06-24 09:39 | VEIN_ITS ---
Patient Name: JOSIAH ALONZO MR#: [id number] : 1955 Exam Date: 06/24/2024 Ordering Doctor: DR CHASE NORRIS M.D. RADIOLOGY REPORT PROCEDURE: [facility] EXT VENOUS RT LMTD COMPARISON: [facility] EXT VENOUS RT LMTD, 06/14/2024. [facility] EXT VENOUS RT LMTD, 03/22/2024. INDICATIONS: I80.01 - Phlebitis and thrombophlebitis of superficial veins right leg TECHNIQUE: Lower extremity holcomb scale and Duplex Doppler evaluation of the deep venous system from the inguinal ligament through the calf veins. FINDINGS: REGION: Right lower extremity. THROMBI: Negative for DVT. Chemically induced thrombus in multiple varicose veins right leg. COMPRESSIBILITY: Non-compressible segments. Non-compressible segments corresponding to thrombus FLOW: Areas of no flow corresponding to thrombus OTHER: No significant varicose veins remain. CONCLUSION: Post ablation occlusion of treated incompetent varicose veins. No significant residual varicose veins remain Dictated by: Chase Norris MD on 06/24/2024 at 10:01 Approved by: Chase Norris MD on 06/24/2024 at 10:03
--- NOTE | 2024-06-24 12:53 | P.DS_ITS ---
Discharge Plan Discharge Disposition: Home, Self-Care Discharge Medications: No Action albuterol sulfate 2.5 mg /3 mL (0.083 %) solution for nebulization 1.25 mg inhalation TID cetirizine [24Hour Allergy] 10 mg tablet 5 mg PO DAILY PRN (Reason: allergy symptoms) cyanocobalamin (vitamin B-12) [Vitamin B-12] 100 mcg tablet 100 mcg PO DAILY escitalopram oxalate [Lexapro] 20 mg tablet 20 mg PO DAILY hydroxyzine pamoate [Vistaril] 25 mg capsule 25 mg PO BID montelukast 10 mg tablet 10 mg PO DAILY clindamycin HCl [Cleocin HCl] 300 mg capsule 300 mg PO BID Plan of Treatment: Finished with treatment at this time. Print Language: [place] Discharge Date/Time: 06/24/24 12:54
== END 2024-06-24 12:54 | disposition home or self-care (01) ==
LOC: VC 09:39
PROVIDERS: PCP Radiology Diagnostic Radiology; Visit Provider Radiology Diagnostic Radiology
DX: I80.01 Phlebitis and thrombophlebitis of superficial vessels of right lower extremity (principal)
CPT/HCPCS: 93971; G0463